=== PATIENT | female | born 1955 | race Caucasian/White ===

== ENCOUNTER → 2017-02-12 | Outpatient (CLI) | payer MEDICARE, BC ==
--- NOTE | 2017-02-12 10:16 | USB ---
Reason for exam: follow-up at short interval from prior study. History: Patient is postmenopausal, has history of high-risk lesion on a previous biopsy at age 59, has history of endometrial cancer at age 43, has history of ovarian cancer at age 43, has history of colon cancer at age 43, and has history of breast cancer at age 42. Family history of breast cancer in mother and premenopausal breast cancer in daughter at age 16. Benign US biopsy breast VAD LT of the left breast, August 07, 2016. Benign MG pre op loc each addl LT of the left breast, July 28, 2015. Benign MG pre op needle loc LT of the left breast, July 28, 2015. High risk US biopsy breast VAD LT of the left breast, May 22, 2015. High risk US biopsy breast add'l VAD LT of the left breast, May 22, 2015. High risk MG pre op needle loc LT of the left breast, April 22, 2014. High risk US biopsy breast VAD LT of the left breast, February 02, 2014. Benign US left CoreBiopsy of the left breast, March 27, 2006. Benign left mammotome panel of the left breast, March 07, 2006. Benign excisional biopsy of the left breast, October 15, 1999. Malignant excisional biopsy of the right breast, December 13, 1997. Benign excisional biopsy of the left breast, November 17, 1997. Malignant excisional biopsy of the right breast, November 17, 1997. Mastectomy of the right breast, 1994. Mastectomy of the right breast. Radiation therapy of the right breast. Took tamoxifen for 5 years beginning at age 43. Physical Findings: Nurse Summary: left nipple pain x a few months (nurse cw). US Breast LT Left breast ultrasound includes all four quadrants, the retroareolar region and axilla. Finding demonstrates a 4 x 2 x 5mm lobular, mixed lesion at 2 o'clock, a 6 x 3 x 6mm oval, cystic lesion at 2 o'clock, a 5 x 3 x 6mm oval, mixed lesion at 2 o'clock and a 6 x 2 x 7mm lobular, mixed lesion at 10 o'clock. These results were verbally communicated with the patient and result sheet given to the patient on 02/12/17. ASSESSMENT: Probably benign, BI-RAD 3 RECOMMENDATION: Follow-up diagnostic mammogram and ultrasound of the left breast in 6 months.
== END | disposition home or self-care (01) ==
LOC: RADUSWWP 08:09
PROVIDERS: ATTEND Surgery
DX: Z85.3 Personal history of malignant neoplasm of breast (principal)

== ENCOUNTER → 2017-09-01 | Outpatient (CLI) | payer MEDICARE, BC ==
--- NOTE | 2017-09-01 10:30 | MM ---
Reason for exam: additional evaluation requested from abnormal screening. Last mammogram was performed 1 year and 1 month ago. History: Patient is postmenopausal, has history of high-risk lesion on a previous biopsy at age 59, has history of endometrial cancer at age 43, has history of ovarian cancer at age 43, has history of colon cancer at age 43, and has history of breast cancer at age 42. Family history of breast cancer in mother and premenopausal breast cancer in daughter at age 16. Benign US biopsy breast VAD LT of the left breast, August 07, 2016. Benign MG pre op loc each addl LT of the left breast, July 28, 2015. Benign MG pre op needle loc LT of the left breast, July 28, 2015. High risk US biopsy breast VAD LT of the left breast, May 22, 2015. High risk US biopsy breast add'l VAD LT of the left breast, May 22, 2015. High risk MG pre op needle loc LT of the left breast, April 22, 2014. High risk US biopsy breast VAD LT of the left breast, February 02, 2014. Benign US left CoreBiopsy of the left breast, March 27, 2006. Benign left mammotome panel of the left breast, March 07, 2006. Benign excisional biopsy of the left breast, October 15, 1999. Malignant excisional biopsy of the right breast, December 13, 1997. Benign excisional biopsy of the left breast, November 17, 1997. Malignant excisional biopsy of the right breast, November 17, 1997. Mastectomy of the right breast, 1994. Mastectomy of the right breast. Radiation therapy of the right breast. Took tamoxifen for 5 years beginning at age 43. MG 3D Diag Mammo W/Cad LT CC, MLO, and XCCL view(s) were taken of the left breast. Prior study comparison: August 07, 2016, left breast MG diagnostic mammo LT wo CAD. July 26, 2016, left breast MG 3d diag mammo w/cad LT. The breast tissue is heterogeneously dense. This may lower the sensitivity of mammography. Stable distortion. No significant new findings when compared with previous films. These results were verbally communicated with the patient and result sheet given to the patient on 09/01/17. ASSESSMENT: Benign, BI-RAD 2 RECOMMENDATION: Ultrasound of the left breast in 6 months.
== END | disposition home or self-care (01) ==
LOC: RADMAMWWP 07:42
PROVIDERS: ATTEND Radiology Diagnostic Radiology
DX: R92.8 Other abnormal and inconclusive findings on diagnostic imaging of breast (principal)
CPT/HCPCS: 77065; G0279

== ENCOUNTER → 2017-09-01 | Outpatient (CLI) | payer MEDICARE, BC ==
--- NOTE | 2017-09-01 10:00 | USB ---
Reason for exam: follow-up at short interval from prior study. History: Patient is postmenopausal, has history of high-risk lesion on a previous biopsy at age 59, has history of endometrial cancer at age 43, has history of ovarian cancer at age 43, has history of colon cancer at age 43, and has history of breast cancer at age 42. Family history of breast cancer in mother and premenopausal breast cancer in daughter at age 16. Benign US biopsy breast VAD LT of the left breast, August 07, 2016. Benign MG pre op loc each addl LT of the left breast, July 28, 2015. Benign MG pre op needle loc LT of the left breast, July 28, 2015. High risk US biopsy breast VAD LT of the left breast, May 22, 2015. High risk US biopsy breast add'l VAD LT of the left breast, May 22, 2015. High risk MG pre op needle loc LT of the left breast, April 22, 2014. High risk US biopsy breast VAD LT of the left breast, February 02, 2014. Benign US left CoreBiopsy of the left breast, March 27, 2006. Benign left mammotome panel of the left breast, March 07, 2006. Benign excisional biopsy of the left breast, October 15, 1999. Malignant excisional biopsy of the right breast, December 13, 1997. Benign excisional biopsy of the left breast, November 17, 1997. Malignant excisional biopsy of the right breast, November 17, 1997. Mastectomy of the right breast, 1994. Mastectomy of the right breast. Radiation therapy of the right breast. Took tamoxifen for 5 years beginning at age 43. Physical Findings: Nurse Summary: 0.5cm palpable node 9-10 o'clock left breast (nurse ms). US Breast LT Left breast ultrasound includes all four quadrants, the retroareolar region and axilla. Finding demonstrates a 5 x 2 x 3mm lobular, mixed lesion at 2 o'clock, a 6 x 3 x 6mm oval, mixed lesion at 2 o'clock, a 4 x 2 x 3mm oval, cystic lesion a 5 o'clock and a 6 x 3 x 3mm lobular, mixed lesion at 10 o'clock. These results were verbally communicated with the patient and result sheet given to the patient on 09/01/17. ASSESSMENT: Incomplete: need additional imaging evaluation, BI-RAD 0 RECOMMENDATION: Follow-up diagnostic mammogram of the left breast.
== END | disposition home or self-care (01) ==
LOC: RADUSWWP 06:48
PROVIDERS: ATTEND Surgery
DX: N60.02 Solitary cyst of left breast (principal)

== ENCOUNTER → 2018-05-25 | Outpatient (CLI) | payer MEDICARE, BC ==
[2018-05-25 12:41] LABS: C Reactive Protein 9.3 mg/L (<10.0); Calcium 9.2 mg/dL (8.4-10.2); Potassium 4.1 mmol/L (3.5-5.1)
[2018-05-25 12:55] LABS: HCT 39.1 % (34.0-46.0); HGB 12.9 gm/dL (11.4-16.0); MCH 29.5 pg (25.0-35.0); MCV 89.3 fL (80.0-100.0); Mean Platelet Volume 6.8; Platelet Count 442 k/uL (150-450); RBC 4.38 m/uL (3.80-5.40); WBC 9.3 k/uL (3.8-10.6)
[2018-05-25 14:53] LABS: Erythrocyte Sedimentation Rate 23 mm/hr (0-20)
[2018-05-25 20:17] LABS: Gliadin AB IgA, Unit <0.2 U/mL
[2018-05-25 21:16] LABS: Hemoglobin A1C 6.3 % (4.0-6.0)
== END | disposition home or self-care (01) ==
LOC: LABWHC1 11:56
PROVIDERS: ATTEND Internal Medicine Gastroenterology
DX: E11.9 Type 2 diabetes mellitus without complications (principal); I11.9 Hypertensive heart disease without heart failure; K52.9 Noninfective gastroenteritis and colitis, unspecified
CPT/HCPCS: 36415; 80048; 83036; 83516; 83630; 85027; 85652; 86140; 87045; 87046; 87328; 87329

== ENCOUNTER → 2018-08-14 | Outpatient (CLI) | payer MEDICARE, BC ==
--- NOTE | 2018-08-14 12:41 | XR ---
EXAM TYPE: LUMBAR SPINE X RAY SERIES COMPARISON: NONE HISTORY: Low back pain TECHNIQUE: 4 views are submitted. FINDINGS: Alignment is anatomic. The pedicles are intact. The transverse processes are intact. There is no s pondylolysis or spondylolisthesis. Vascular calcifications are noted there is facet arthropathy at L 5-S1. Slight curvature of the spine with multilevel hypertrophic and mild degenerative disc disease. Suggestion of previous surgery involving the pelvis which may be related to hernia repair surgery. Th ere is sclerosis greater on the left involving the SI joint. No erosive changes. IMPRESSION: 1. Multilevel degenerative disc disease with severe facet arthropathy L5-S1. Neural foraminal encroac hment is suspected. Recommend MRI. There are 2 correlate for mild sacroiliitis.
== END ==
LOC: RADXRMAIN 11:54
PROVIDERS: ATTEND Internal Medicine
DX: M51.37 Other intervertebral disc degeneration, lumbosacral region (principal); M46.97 Unspecified inflammatory spondylopathy, lumbosacral region; M46.1 Sacroiliitis, not elsewhere classified
CPT/HCPCS: 72110

== ENCOUNTER → 2018-09-02 | Outpatient (CLI) | payer MEDICARE, BC ==
--- NOTE | 2018-09-02 12:23 | MR ---
EXAMINATION TYPE: MR lumbar spine wo con DATE OF EXAM: 09/02/2018 COMPARISON: 08/14/2018 lumbar spine radiographs HISTORY: Back pain TECHNIQUE: Multiplanar, multisequence images of the lumbar spine were acquired. FINDINGS: The lumbar spine vertebral bodies maintain normal vertebral body heights and alignment. Mul tilevel disc desiccation is seen. Conus medullaris is unremarkable. L1-L2: There is a broad-based disc bulge, facet arthropathy and ligamentum flavum buckling with minim al bilateral neural foraminal narrowing and no spinal canal stenosis. L2-L3: There is a broad-based disc bulge, facet arthropathy and ligamentum flavum buckling with mild bilateral neural foraminal narrowing and no spinal canal stenosis. L3-L4: There is a broad-based disc bulge, facet arthropathy and ligamentum flavum buckling with mild bilateral neural foraminal narrowing and no spinal canal stenosis. L4-L5: There is a broad-based disc bulge, facet arthropathy and ligamentum flavum buckling resulting in mild bilateral neural foraminal narrowing and mild spinal canal stenosis. L5-S1: There is a broad-based disc bulge, facet arthropathy and ligamentum flavum buckling resulting in minimal bilateral neural foraminal narrowing. No significant spinal canal stenosis. IMPRESSION: Multilevel degenerative disc disease of the lumbar spine without focal herniation however there is mi ld spinal canal stenosis at L4-L5 as a result of the multilevel degenerative disc disease and there a re is multilevel neural foraminal narrowing.
== END | disposition home or self-care (01) ==
LOC: RADMRIMAIN 10:30
PROVIDERS: ATTEND Internal Medicine
DX: M48.061 Spinal stenosis, lumbar region without neurogenic claudication (principal); M99.73 Connective tissue and disc stenosis of intervertebral foramina of lumbar region; M51.16 Intervertebral disc disorders with radiculopathy, lumbar region
CPT/HCPCS: 72148

== ENCOUNTER 2018-12-18 10:20 | Day surgery (SDC) | payer MEDICARE, BC ==
[2018-12-16 12:11] VITALS: BMI 37.0
--- NOTE | 2018-12-17 20:37 | P.GSHP ---
History of Present Illness H&P Date: 12/18/18 CHIEF COMPLAINT: GERD and colon screen HISTORY OF PRESENT ILLNESS: The patient is a 63-year-old female who presents with gastroesophageal reflux disease and need for colon screen. Upper and lower endoscopy were offered for further evaluation and management. PAST MEDICAL HISTORY: Please see list. PAST SURGICAL HISTORY: Please see list. MEDICATIONS: Please see list. ALLERGIES: Please see list. SOCIAL HISTORY: No illicit drug use FAMILY HISTORY: No reports of Crohn disease or ulcerative colitis. REVIEW OF ORGAN SYSTEMS: CONSTITUTIONAL: No reports of fevers or chills. GI: Denies any blood in stools or constipation. PHYSICAL EXAM: VITAL SIGNS: Stable GENERAL: Well-developed pleasant in no acute distress. HEENT: No scleral icterus. Extraocular movements grossly intact. Moist buccal mucosa. NECK: Supple without lymphadenopathy. CHEST: Unlabored respirations. Equal bilateral excursions. CARDIOVASCULAR: Regular rate and rhythm. Distal 2+ pulses. ABDOMEN: Soft, nondistended. MUSCULOSKELETAL: No clubbing, cyanosis, or edema. ASSESSMENT: 1. Gastroesophageal reflux disease 2. Colon screen. PLAN: 1. Recommend proceeding with an upper and lower endoscopy Past Medical History Past Medical History: Cancer, CVA/TIA, Diabetes Mellitus, Hyperlipidemia, Hypertension, Osteoarthritis (OA), Pneumonia, Seizure Disorder Additional Past Medical History / Comment(s): chronic diarrhea, breast/colon/ova jeffrey,uterine CA, no bp in rt arm. told she had a stroke 03/2014 "blood clot in back of head". hx of head injury 3rd grade, pt states she has "slow thinking process"and seizures started after injury. -last seizure >5 years ago, hx back pain. brain aneurysm 2007,meniers disease History of Any Multi-Drug Resistant Organisms: None Reported Past Surgical History: Adenoidectomy, Appendectomy, Bladder Surgery, Bowel Resection, Breast Surgery, Section, Cholecystectomy, Hernia Repair, Hysterectomy, Orthopedic Surgery, Tonsillectomy Additional Past Surgical History / Comment(s): rt mastectomy, manpreet BREAST BX, MANPREET CATARACT SX, BLADDER SUSPENSION, bowel resection x2 d/t ca. Past Anesthesia/Blood Transfusion Reactions: Postoperative Nausea & Vomiting (PONV) Smoking Status: Never smoker - Past Family History Mother Family Medical History: Cancer Father Family Medical History: Cancer Medications and Allergies Home Medications Medication Instructions Recorded Confirmed Type Enalapril [Vasotec] 20 mg PO QAM 12/16/13 12/16/18 History carBAMazepine [Carbatrol] 600 mg PO BID 12/16/13 12/16/18 History glipiZIDE [Glucotrol] 5 mg PO BID 12/16/13 12/16/18 History hydrALAZINE HCL [Apresoline] 50 mg PO TID 12/16/13 12/16/18 History levETIRAcetam [Keppra] 1,000 mg PO BID 12/16/13 12/16/18 History Aspirin 325 mg PO HS 04/21/14 12/16/18 History Atorvastatin [Lipitor] 20 mg PO HS 04/21/14 12/16/18 History Hydrocodone/Acetaminophen 1 tab PO Q6HR PRN 04/21/14 12/16/18 History [Hydrocodone/Acetaminophen 10-325] Topiramate 50 mg PO BID 04/21/14 12/16/18 History Diclofenac Sodium [Voltaren] 75 mg PO BID 07/08/17 12/16/18 History Diphenox-Atrop 2.5-0.025 mg 1 tab PO QID PRN 07/08/17 12/16/18 History [Lomotil] Enalapril [Vasotec] 10 mg PO HS 07/08/17 12/16/18 History metFORMIN HCL [Glucophage] 500 mg PO BID 07/08/17 12/16/18 History Hydrochlorothiazide [Hydrodiuril] 25 mg PO DAILY #30 tab 07/09/17 12/16/18 Rx Atenolol 25 mg PO BID 12/16/18 12/16/18 History Sertraline [Zoloft] 100 mg PO DAILY 12/16/18 12/16/18 History Allergies Allergy/AdvReac Type Severity Reaction Status Date / Time No Known Allergies Allergy Verified 12/16/18 12:02
[~2018-12-18 10:20] MED LIST: LACTATED RINGERS 1,000 ML IV SCH; LIDOCAINE 1% 20 ML VIAL (10MG/ML) FOR IV START INTRADERMA PRN
[2018-12-18 11:46] VITALS: TEMP 98.2
[2018-12-18 11:50] LABS: Glucose,Whole Blood 137 mg/dL (75-99)
[2018-12-18] MEDS ORDERED: PROPOFOL 10 MG/ML 20 ML VIAL IV ONE (12:12)
[2018-12-18] MEDS ORDERED: LIDOCAINE 1% INJ 10MG/ML (20 ML MDV) ONE (12:12)
[2018-12-18] MEDS ORDERED: GLYCOPYRROLATE 0.2 MG/ML 2 ML VIAL ONE (12:12)
[2018-12-18] MEDS ORDERED: KETAMINE 10 MG/ML 20 ML VIAL ONE (12:12)
--- NOTE | 2018-12-18 12:32 | P.PCN ---
Date of Procedure: 12/18/18 Description of Procedure: PREOPERATIVE DIAGNOSIS: Gastroesophageal reflux disease. Morbid obesity. POSTOPERATIVE DIAGNOSIS: Morbid obesity. Gastritis. Gastroesophageal reflux disease. Diaphragmatic hiatal hernia OPERATION: Esophagogastroduodenoscopy with biopsies along antrum. SURGEON: Opal Torres MD ANESTHESIA: MAC. INDICATIONS: The patient is a 63-year-old female who presents with a history of reflux disease. Benefits and risks of the procedure were described. Informed consent was obtained. DESCRIPTION: The patient was brought into the endoscopy suite and laid in the left lateral decubitus position. An Olympus gastroscope was passed along the posterior oropharynx down to the distal esophagus where the squamocolumnar junction was encountered at 40 cm from the incisors. The stomach was entered and no bile reflux was found. Additional findings are listed below. Biopsies with cold f orceps were obtained of the antrum. The first through third portion of the duodenum was examined and unremarkable. Retroflexion of the scope confirmed Hill grade 4 lower esophageal valve. The squamocolumnar junction demonstrated LA grade B erosive esophagitis with bleeding. The stomach was desufflated. The patient tolerated the procedure well. FINDINGS: Squamocolumnar junction 40 cm from the incisors. Diaphragmatic hiatus at 40 cm. Hill grade 4 lower esophageal valve. LA grade B erosive esophagitis with acute bleeding No active duodenitis. Chronic gastritis with recent bleed RECOMMENDATIONS: Upper endoscopy as needed.
--- NOTE | 2018-12-18 12:43 | P.PCN ---
Date of Procedure: 12/18/18 Description of Procedure: PREOPERATIVE DIAGNOSIS: Colonoscopy screening. Personal history of colon cancer Family history of colon cancer Status post sigmoid colon resection POSTOPERATIVE DIAGNOSIS: Colonoscopy screening. Personal history of colon cancer Family history of colon cancer Status post sigmoid colon resection OPERATION: Colonoscopy to the ileocecal valve and appendiceal orifice. SURGEON: Opal Torres MD. ANESTHESIA: MAC. INDICATIONS: The patient is a 63-year-old female who presents for colonoscopy screening. Benefits and risks were described and informed consent was obtained. DESCRIPTION OF PROCEDURE: The patient had undergone Suprep. She had been brought into the operating room and laid in the left lateral decubitus position. After adequate intravenous sedation, the rectum was examined with 2% lidocaine jelly. External hemorrhoids were encountered. The rectal tone was within normal limits. No lesions were palpated in the rectal vault. An Olympus colonoscope was advanced until the ileocecal valve and appendiceal orifice were clearly viewed. Colon anastomosis was unremarkable of the sigmoid colon. The prep was good. The scope was removed with visualization of each mucosal fold. No scattered diverticulosis was encountered. No colonic polyps were found. No evidence of focal colitis was found. Retroflexion of the scope demonstrated grade 1 internal hemorrhoids without active bleeding or inflammation. The colon was desufflated. The patient had tolerated the procedure well. Withdrawal time was over 6 minutes. FINDINGS: Aronchick preparation quality scale 1 (1-5) Internal hemorrhoids, grade 1 External prolapsed hemorrhoids, stage III No arteriovenous malformations. No adenomatous polyps. Colon anastomosis was unremarkable of the sigmoid colon. No focal colitis. RECOMMENDATIONS: Lower endoscopy in 5 years, 2023 Plan - Discharge Summary Discharge Rx Participant: No New Discharge Prescriptions: No Action levETIRAcetam [Keppra] 1,000 mg PO BID hydrALAZINE HCL [Apresoline] 50 mg PO TID glipiZIDE [Glucotrol] 5 mg PO BID carBAMazepine [Carbatrol] 600 mg PO BID Enalapril [Vasotec] 20 mg PO QAM Atorvastatin [Lipitor] 20 mg PO HS Aspirin 325 mg PO HS Topiramate 50 mg PO BID Hydrocodone/Acetaminophen [Hydrocodone/Acetaminophen 10-325] 1 tab PO Q6HR PRN PRN Reason: Pain metFORMIN HCL [Glucophage] 500 mg PO BID Diclofenac Sodium [Voltaren] 75 mg PO BID Enalapril [Vasotec] 10 mg PO HS Diphenox-Atrop 2.5-0.025 mg [Lomotil] 1 tab PO QID PRN PRN Reason: Loose Stool Hydrochlorothiazide [Hydrodiuril] 25 mg PO DAILY #30 tab Sertraline [Zoloft] 100 mg PO DAILY Atenolol 25 mg PO BID Discharge Medication List Enalapril [Vasotec] 20 mg PO QAM 12/16/13 [History] carBAMazepine [Carbatrol] 600 mg PO BID 12/16/13 [History] glipiZIDE [Glucotrol] 5 mg PO BID 12/16/13 [History] hydrALAZINE HCL [Apresoline] 50 mg PO TID 12/16/13 [History] levETIRAcetam [Keppra] 1,000 mg PO BID 12/16/13 [History] Aspirin 325 mg PO HS 04/21/14 [History] Atorvastatin [Lipitor] 20 mg PO HS 04/21/14 [History] Hydrocodone/Acetaminophen [Hydrocodone/Acetaminophen 10-325] 1 tab PO Q6HR PRN 04/21/14 [History] Topiramate 50 mg PO BID 04/21/14 [History] Diclofenac Sodium [Voltaren] 75 mg PO BID 07/08/17 [History] Diphenox-Atrop 2.5-0.025 mg [Lomotil] 1 tab PO QID PRN 07/08/17 [History] Enalapril [Vasotec] 10 mg PO HS 07/08/17 [History] metFORMIN HCL [Glucophage] 500 mg PO BID 07/08/17 [History] Hydrochlorothiazide [Hydrodiuril] 25 mg PO DAILY #30 tab 07/09/17 [Rx] Atenolol 25 mg PO BID 12/16/18 [History] Sertraline [Zoloft] 100 mg PO DAILY 12/16/18 [History] Follow up Appointment(s)/Referral(s): Opal Torres MD [STAFF PHYSICIAN] - 01/06/19 Patient Instructions/Handouts: Gastritis (DC), Gastroesophageal Reflux Disease (DC) Activity/Diet/Wound Care/Special Instructions: Repeat colonoscopy in 5 years, 2023 Discharge Disposition: HOME SELF-CARE
[2018-12-18 13:19] VITALS: BP 133/75; PULSE 59; RESP 16
== END 2018-12-18 13:51 | disposition home or self-care (01) ==
LOC: ORWHC2ENDO 10:20
PROVIDERS: ATTEND Surgery Plastic and Reconstructive Surgery
DX: Z12.11 Encounter for screening for malignant neoplasm of colon (principal); K29.51 Unspecified chronic gastritis with bleeding; K22.11 Ulcer of esophagus with bleeding; K44.9 Diaphragmatic hernia without obstruction or gangrene; K64.0 First degree hemorrhoids; K64.4 Residual hemorrhoidal skin tags; E66.01 Morbid (severe) obesity due to excess calories; K21.9 Gastro-esophageal reflux disease without esophagitis; R56.9 Unspecified convulsions; E11.9 Type 2 diabetes mellitus without complications; M19.90 Unspecified osteoarthritis, unspecified site; E78.5 Hyperlipidemia, unspecified; I10 Essential (primary) hypertension; Z79.82 Long term (current) use of aspirin; Z80.0 Family history of malignant neoplasm of digestive organs; Z85.038 Personal history of other malignant neoplasm of large intestine; Z79.84 Long term (current) use of oral hypoglycemic drugs; Z79.899 Other long term (current) drug therapy; Z86.010 Personal history of colon polyps; Z90.49 Acquired absence of other specified parts of digestive tract; Z98.0 Intestinal bypass and anastomosis status; Z86.73 Personal history of transient ischemic attack (TIA), and cerebral infarction without residual deficits; Z79.891 Long term (current) use of opiate analgesic; Z68.37 Body mass index [BMI] 37.0-37.9, adult
CPT/HCPCS: 88305; 43239; J2001; J2704; G0105; 45378

== ENCOUNTER → 2018-12-24 | Outpatient (CLI) | payer MEDICARE, BC ==
--- NOTE | 2018-12-24 09:12 | MM ---
Reason for exam: additional evaluation requested from prior study. Last mammogram was performed 1 year and 4 months ago. History: Patient is postmenopausal, has history of high-risk lesion on a previous biopsy at age 59, has history of endometrial cancer at age 43, has history of ovarian cancer at age 43, has history of colon cancer at age 43, and has history of breast cancer at age 42. Family history of breast cancer in mother at age 40, premenopausal breast cancer in daughter at age 16, and breast cancer in daughter at age 30. Benign US biopsy breast VAD LT of the left breast, August 07, 2016. Benign MG pre op loc each addl LT of the left breast, July 28, 2015. Benign MG pre op needle loc LT of the left breast, July 28, 2015. High risk US biopsy breast VAD LT of the left breast, May 22, 2015. High risk US biopsy breast add'l VAD LT of the left breast, May 22, 2015. High risk MG pre op needle loc LT of the left breast, April 22, 2014. High risk US biopsy breast VAD LT of the left breast, February 02, 2014. Benign US left CoreBiopsy of the left breast, March 27, 2006. Benign left mammotome panel of the left breast, March 07, 2006. Benign excisional biopsy of the left breast, October 15, 1999. Malignant excisional biopsy of the right breast, December 13, 1997. Benign excisional biopsy of the left breast, November 17, 1997. Malignant excisional biopsy of the right breast, November 17, 1997. Mastectomy of the right breast, 1994. Mastectomy of the right breast. Radiation therapy of the right breast. Took hormonal contraceptives for 6 years beginning at age 19. Took tamoxifen for 5 years beginning at age 43. Physical Findings: Nurse did not find any significant physical abnormalities on exam. MG 3D Diag Mammo W/Cad LT CC, MLO, XCCL, and ML view(s) were taken of the left breast. Prior study comparison: September 01, 2017, left breast MG 3d diag mammo w/cad LT. August 07, 2016, left breast MG diagnostic mammo LT wo CAD. The breast tissue is heterogeneously dense. This may lower the sensitivity of mammography. Finding: Stable architectural distortion in the left breast. There is a chronic nodularity in the left breast. There is a 5mm circumscribed nodule left upper quadrant. These results were verbally communicated with the patient and result sheet given to the patient on 12/24/18. ASSESSMENT: Incomplete: need additional imaging evaluation, BI-RAD 0 RECOMMENDATION: Ultrasound of the left breast.
--- NOTE | 2018-12-24 09:17 | USB ---
Reason for exam: additional evaluation requested from prior study. History: Patient is postmenopausal, has history of high-risk lesion on a previous biopsy at age 59, has history of endometrial cancer at age 43, has history of ovarian cancer at age 43, has history of colon cancer at age 43, and has history of breast cancer at age 42. Family history of breast cancer in mother at age 40, premenopausal breast cancer in daughter at age 16, and breast cancer in daughter at age 30. Benign US biopsy breast VAD LT of the left breast, August 07, 2016. Benign MG pre op loc each addl LT of the left breast, July 28, 2015. Benign MG pre op needle loc LT of the left breast, July 28, 2015. High risk US biopsy breast VAD LT of the left breast, May 22, 2015. High risk US biopsy breast add'l VAD LT of the left breast, May 22, 2015. High risk MG pre op needle loc LT of the left breast, April 22, 2014. High risk US biopsy breast VAD LT of the left breast, February 02, 2014. Benign US left CoreBiopsy of the left breast, March 27, 2006. Benign left mammotome panel of the left breast, March 07, 2006. Benign excisional biopsy of the left breast, October 15, 1999. Malignant excisional biopsy of the right breast, December 13, 1997. Benign excisional biopsy of the left breast, November 17, 1997. Malignant excisional biopsy of the right breast, November 17, 1997. Mastectomy of the right breast, 1994. Mastectomy of the right breast. Radiation therapy of the right breast. Took hormonal contraceptives for 6 years beginning at age 19. Took tamoxifen for 5 years beginning at age 43. US Breast LT Left complete breast ultrasound includes all four quadrants, the retroareolar region and axilla. Finding demonstrates a 0.3 x 0.2 x 0.6cm lesion too small to characterize at 2 o'clock, a 0.5 x 0.2cm lesion too small to characterize at 2 o'clock, a 0.7 x 0.4 x 0.8cm mixed lesion at 2 o'clock, a 0.4 x 0.2cm leison too small to characterize at 2 o'clock, 0.7 x 0.4 x 0.3cm ductal ectasia at 4 o'clock, a 0.5 x 0.4 x 0.3cm lesion at 5 o'clock and a 0.9 x 0.4 x 0.6cm mixed lesion at 10 o'clock. These results were verbally communicated with the patient and result sheet given to the patient on 12/24/18. ASSESSMENT: Suspicious, BI-RAD 4 RECOMMENDATION: Surgical consultation and ultrasound core biopsy of the left breast. (biopsy at 2 o'clock, 4 o'clock and 10 o'clock, clip to correlate to mammogram) Called with mammographic findings and has scheduled an appointment for the patient for 01/06/[address] Torres. Biopsy scheduled for 01/06/19 at 2 o'clock. PRELIMINARY REPORT CALLED AND FAXED TO DR. TORRES ON 12/24/18.
== END | disposition home or self-care (01) ==
LOC: RADMAMWWP 06:54
PROVIDERS: ATTEND Surgery Plastic and Reconstructive Surgery
DX: N60.09 Solitary cyst of unspecified breast (principal); R92.8 Other abnormal and inconclusive findings on diagnostic imaging of breast; Z85.3 Personal history of malignant neoplasm of breast
CPT/HCPCS: 77065; 76641; G0279; 77061

== ENCOUNTER → 2019-01-06 | Day surgery (SDC) | payer MEDICARE, BC ==
[2019-01-06 13:41] VITALS: RESP 18; TEMP 97.9; BMI 34.4
--- NOTE | 2019-01-06 15:35 | USB ---
EXAMINATION TYPE: US biopsy breast VAD LT, US biopsy breast add'l VAD LT DATE OF EXAM: 01/06/2019 CLINICAL HISTORY: Z85.3 Personal HX Of Breast CA. TECHNIQUE: Ultrasound guided core biopsy of left breast. COMPARISON: Prior breast ultrasound 12/24/2018, mammogram 12/24/2018 FINDINGS: The procedure of ultrasound guided core biopsy was explained to the patient. Benefits, alternatives, and risks were discussed. An informed consent was then obtained. The patient was placed in supine positioning for imaging and for the procedure. The overlying skin was prepped and draped in usual sterile fashion. Lidocaine was used as anesthetic into the skin and subcutaneous tissue up to area of concern in the left breast at the 2:00 position. Under ultrasound guidance, a 12-gauge vacuum assisted biopsy gun device was used to obtain 2 core samples. Following this, a biopsy clip was left in lesion. Using similar technique biopsy was performed at the 10:00 position of the left breast. 5 core specimens were obtained. Biopsy clip was left in the lesion. Postprocedure mammogram is pending. The 4:00 lesion could not be repaired. Only ductal changes are identified. No biopsy performed at this site. The patient tolerated the procedure well without any immediate complication. The patient was kept in the radiology department for short stay after the procedure and then discharged home in stable condition. IMPRESSION: Successful, uncomplicated ultrasound guided core biopsy of 2 areas of concern in the left breast, full pathology results to follow. Pathology Results: Malignant A. 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 Appropriately controlled immunohistochemical studies for CK 5/6 and CK 7 are immunoreactive in a pattern confirming usual duct hyperplasia. B. LEFT BREAST AT 10:00 POSITION, BIOPSIES: Low grade DCIS with surrounding adenosis. Appropriately controlled immunohistochemical studies for cytokeratin 5/6 are negative in areas of DCIS, cytokeratin 7 is negative for invasion. Recommendation Surgical consult of the left breast. MTDD
[2019-01-06 16:07] VITALS: BP 132/74; PULSE 51
--- NOTE | 2019-01-07 08:19 | MM ---
Reason for exam: additional evaluation requested from abnormal screening. Last mammogram was performed less than 1 month ago. History: Patient is postmenopausal, has history of high-risk lesion on a previous biopsy at age 59, has history of endometrial cancer at age 43, has history of ovarian cancer at age 43, has history of colon cancer at age 43, and has history of breast cancer at age 42. Family history of breast cancer in mother at age 40, premenopausal breast cancer in daughter at age 16, and breast cancer in daughter at age 30. Benign US biopsy breast VAD LT of the left breast, August 07, 2016. Benign MG pre op loc each addl LT of the left breast, July 28, 2015. Benign MG pre op needle loc LT of the left breast, July 28, 2015. High risk US biopsy breast VAD LT of the left breast, May 22, 2015. High risk US biopsy breast add'l VAD LT of the left breast, May 22, 2015. High risk MG pre op needle loc LT of the left breast, April 22, 2014. High risk US biopsy breast VAD LT of the left breast, February 02, 2014. Benign US left CoreBiopsy of the left breast, March 27, 2006. Benign left mammotome panel of the left breast, March 07, 2006. Benign excisional biopsy of the left breast, October 15, 1999. Malignant excisional biopsy of the right breast, December 13, 1997. Benign excisional biopsy of the left breast, November 17, 1997. Malignant excisional biopsy of the right breast, November 17, 1997. Mastectomy of the right breast, 1994. Mastectomy of the right breast. Radiation therapy of the right breast. Took hormonal contraceptives for 6 years beginning at age 19. Took tamoxifen for 5 years beginning at age 43. MG Diagnostic Mammo LT Wo CAD CC and MLO view(s) were taken of the left breast. Prior study comparison: December 24, 2018, left breast MG 3d diag mammo w/cad LT. September 01, 2017, left breast MG 3d diag mammo w/cad LT. ASSESSMENT: Post procedure mammogram for marker placement RECOMMENDATION: Ultrasound of the left breast in 6 months. PENDING PATHOLOGY RESULTS.
== END | disposition home or self-care (01) ==
LOC: RADUSWWP 12:37
PROVIDERS: ATTEND Surgery Plastic and Reconstructive Surgery
DX: D24.2 Benign neoplasm of left breast (principal); R92.8 Other abnormal and inconclusive findings on diagnostic imaging of breast; Z78.0 Asymptomatic menopausal state; Z80.3 Family history of malignant neoplasm of breast; Z85.038 Personal history of other malignant neoplasm of large intestine; Z85.3 Personal history of malignant neoplasm of breast; Z90.11 Acquired absence of right breast and nipple; Z85.43 Personal history of malignant neoplasm of ovary; Z85.42 Personal history of malignant neoplasm of other parts of uterus
CPT/HCPCS: 88305; 88342; 88341; 77065; 19083; 19084; A4648

== ENCOUNTER → 2019-02-10 | Outpatient (CLI) | payer MEDICARE, BC ==
[2019-02-10 12:31] VITALS: BP 156/79; PULSE 70; RESP 18; TEMP 97.8; BMI 36.2
--- NOTE | 2019-02-10 13:48 | P.GSHP ---
History of Present Illness H&P Date: 02/10/19 Chief Complaint: DCIS left breast Shelli is a 64-year-old white female who is status post right mastectomy and axillary node dissection about 1994. She did not receive chemotherapy. She did have 2 radiation treatments, and was treated with tamoxifen for 5 years. She had a routine left breast mammogram and ultrasound on 12-24-18, and than an ultrasound guided biopsy of two areas at 2 O-clock and 10 O-clock done on 01-06-19. The biopsy at 2 O-Clock showed an intraductal papilloma and at 10 O- Clock low grade DCIS. She has no complications or complaints related to the biopsy. She complains of pain at the nipple this had been present for several years. She has had multiple biopsies of the left breast which have been benign in the past. The patient has had ovarian, uterine, right breast, and colon cancer twice. Of importance is the patients family history: mother: breast cancer at 59; maternal grandmother: ? uterine cancer at 29; daughter breast cancer at 16 (no radiation, no chemotherapy, was on tamoxifen). The patient had genetic testing done and was told she did not have the breast cancer gene. Family History: 1. mother: breast cancer, leukemia 2. daughter: cancer at 16 breast 3. father: kidney cancer, bladder cancer, colon cancer, prostate cancer 4. maternal aunt: breast cancer 5. paternal uncles 9 with cancers including: brain, stomach, colon, bladder, prostate 6. paternal aunt: breast Hormonal History: menarche: 10 , adopted grandson; breast fed:no, first born at 19 menopause: hysterectomy at 44 BCP: 7 years hormones: none Past Surgical History: 1. right breast mastectomy 2. gallbladder 3. hysterectomy 4. appy 5. tonsil and adenoid 6. bladder suspenscion 7. hernia 8. 2 c-sections 9. brain aneurysm 10: trauma to scalp Medical History: 1. HTN 2. seizures 3. diabetes 4. arthritis 5. multiple cancers Social History: smoke: none alcohol: none drugs:none - Constitutional Constitutional: Reports sweats, Denies chills, Denies fever - EENT Eyes: denies blurred vision, denies pain Ears: right: decreased hearing (left also decreased but not as bad as right), deny: tinnitus Ears, nose, mouth and throat: Reports headache, Denies sore throat - Breasts Breasts: bilateral: as per HPI - Cardiovascular Cardiovascular: Reports high blood pressure - Respiratory Respiratory: Denies cough, Denies 7 - Gastrointestinal Comment: colon cancer, diarrhea - Genitourinary (Female) Genitourinary: Denies dysuria, Denies hematuria - Menstruation Menstruation: Reports post hysterectomy - Musculoskeletal Comment: arthritis - Integumentary Integumentary: Denies pruritus, Denies rash - Neurological Comment: seizures - Psychiatric Psychiatric: Reports depression, Denies anxiety - Endocrine Comment: diabetes Endocrine: Reports fatigue - Hematologic/Lymphatic Comment: baby aspirin - Allergic/Immunologic Allergic/Immunologic: Reports as per HPI Past Medical History Past Medical History: Cancer, CVA/TIA, Diabetes Mellitus, Hyperlipidemia, Hypertension, Osteoarthritis (OA), Pneumonia, Seizure Disorder Additional Past Medical History / Comment(s): chronic diarrhea, breast/colon/ovarian,uterine CA, no bp in rt arm. told she had a stroke 03/2014 "blood clot in back of head". hx of head injury 3rd grade, pt states she has "slow thinking process"and seizures started after injury. -last seizure >5 years ago, hx back pain. brain aneurysm 2007,meniers disease History of Any Multi-Drug Resistant Organisms: None Reported Past Surgical History: Adenoidectomy, Appendectomy, Bladder Surgery, Bowel Resection, Breast Surgery, Section, Cholecystectomy, Hernia Repair, Hysterectomy, Orthopedic Surgery, Tonsillectomy Additional Past Surgical History / Comment(s): rt mastectomy, manpreet BREAST BX, MANPREET CATARACT SX, BLADDER SUSPENSION, bowel resection x2 d/t ca. Past Anesthesia/Blood Transfusion Reactions: Postoperative Nausea & Vomiting (PONV) Past Psychological History: Depression Additional Psychological History / Comment(s): . Smoking Status: Never smoker Past Alcohol Use History: None Reported Past Drug Use History: None Reported - Past Family History Mother Family Medical History: Cancer Father Family Medical History: Cancer Medications and Allergies Home Medications Medication Instructions Recorded Confirmed Type Enalapril [Vasotec] 25 mg PO QAM 12/16/13 02/10/19 History carBAMazepine [Carbatrol] 600 mg PO BID 12/16/13 02/10/19 History glipiZIDE [Glucotrol] 5 mg PO BID 12/16/13 02/10/19 History hydrALAZINE HCL [Apresoline] 50 mg PO TID 12/16/13 02/10/19 History levETIRAcetam [Keppra] 1,000 mg PO BID 12/16/13 02/10/19 History Aspirin 325 mg PO HS 04/21/14 02/10/19 History Atorvastatin [Lipitor] 20 mg PO HS 04/21/14 02/10/19 History Hydrocodone/Acetaminophen 1 tab PO Q6HR PRN 04/21/14 02/10/19 History [Hydrocodone/Acetaminophen 10-325] Topiramate 50 mg PO BID 04/21/14 02/10/19 History Diphenox-Atrop 2.5-0.025 mg 1 tab PO QID PRN 07/08/17 02/10/19 History [Lomotil] Enalapril [Vasotec] 25 mg PO HS 07/08/17 02/10/19 History metFORMIN HCL [Glucophage] 500 mg PO BID 07/08/17 02/10/19 History Hydrochlorothiazide [Hydrodiuril] 25 mg PO DAILY #30 tab 07/09/17 02/10/19 Rx Sertraline [Zoloft] 100 mg PO DAILY 12/16/18 02/10/19 History Allergies Allergy/AdvReac Type Severity Reaction Status Date / Time No Known Allergies Allergy Verified 02/10/19 12:28 Surgical - Exam Vital Signs Temp Pulse Resp BP Pulse Ox 97.8 F 70 18 156/79 97 02/10/19 12:29 02/10/19 12:29 02/10/19 12:29 02/10/19 12:29 02/10/19 12:29 BMI 36.2 - General obese - Eyes normal ocular movement - ENT poor dentition no hearing loss, no congestion - Neck no masses, trachea midline - Respiratory normal respiratory effort, clear to auscultation - Cardiovascular Rhythm: regular Heart Sounds: normal: S1, S2 - Abdomen Abdomen: soft, non tender, no guarding, no rigid, no rebound - Integumentary normal turgor - Musculoskeletal knee pain limited mobility - Psychiatric oriented to time, oriented to person, oriented to place, speech is normal, memory intact breast exam: right chest wall: no recurrence of cancer right axilla: no adenopathy of concern left breast: multiple scars, no masses of concern left axilla: no adenopathy of concern Results mammogram and ultrasound reviewed Assessment and Plan Assessment: Impression: 1.HTN 2. seizures 3. diabetes 4. arthritis 5. multiple cancers 6. left breast DCIS 7. obesity 8. history of multiple prior cancers, uterine, ovarian, breast, colon Surgical options were discussed with the patient. These include local excision of both sites of the core biopsy with possible radiation therapy to the breast. The patient was given the option of a mastectomy +/- sentinel node biopsy; possible axillary node dissection. The patient has DCIS however, with her strong history we have considered sentinel node biopsy. The patient was also given the option of immediate reconstruction. The patient is not interested in meeting with a plastic surgeon or reconstruction at this time. She wishes to have a mastectomy with sentinel node biopsy and possible axillary node dissection. Plan: 1. Left breast mastectomy, sentinel node biopsy, possible axillary node dissection 2. Presentation at tumor board 3. Medical clearance CC: Dr. Negrete, Dr. Mcleod, DR. Torres
== END ==
LOC: WWCWWP 11:51
PROVIDERS: ATTEND Surgery
DX: Z53.9 Procedure and treatment not carried out, unspecified reason (principal)

== ENCOUNTER → 2019-02-22 | Outpatient (CLI) | payer MEDICARE, BC ==
[2019-02-22 08:02] LABS: Appearance,Urine Clear (Clear); Bilirubin,Urine Negative (Negative); Blood,Urine Negative (Negative); Color,Urine Yellow; Glucose,Urine (UA) Negative (Negative); Ketones,Urine Negative (Negative); Leukocyte Esterase,Urine Moderate (Negative); Mucus,Urine Rare /hpf; Nitrite,Urine Negative (Negative); PH, Urine 5.5 (5.0-8.0); Protein,Urine Trace (Negative); RBC,Urine 1 /hpf (0-5); Specific Gravity,Urine 1.018 (1.001-1.035); Squamous Epithelial Cell,Urine 3 /hpf (0-4); Urobilinogen,Urine <2.0 mg/dL (<2.0); WBC,Urine 12 /hpf (0-5)
[2019-02-22 08:04] LABS: Basophils # (A) 0.1 k/uL (0-0.2); Basophils % (A) 1 %; Eosinophils # (A) 0.4 k/uL (0-0.7); Eosinophils % (A) 5 %; HCT 42.1 % (34.0-46.0); HGB 13.7 gm/dL (11.4-16.0); Lymphocytes # (A) 2.5 k/uL (1.0-4.8); Lymphocytes % (A) 31 %; MCH 28.1 pg (25.0-35.0); MCHC 32.5 g/dL (31.0-37.0); MCV 86.7 fL (80.0-100.0); Mean Platelet Volume 7.3; Monocytes # (A) 0.4 k/uL (0-1.0); Monocytes % (A) 5 %; Neutrophils # (A) 4.6 k/uL (1.3-7.7); Neutrophils % (A) 57 %; Platelet Count 341 k/uL (150-450); RBC 4.85 m/uL (3.80-5.40); RDW 13.7 % (11.5-15.5); WBC 8.1 k/uL (3.8-10.6)
[2019-02-22 11:40] LABS: Erythrocyte Sedimentation Rate 13 mm/hr (0-20)
[2019-02-22 12:40] LABS: African American GFR (CKD) 104.6 (60.0-200.0); Albumin 4.5 g/dL (3.80-4.90); Albumin/Globulin Ratio 2.05 (1.60-3.17); Anion Gap 9.7 mmol/L (4.00-12.00); BUN/Creat Ratio 21.43 Ratio (12.00-20.00); C Reactive Protein 0.6 mg/dL (0.0-0.8); Calcium 9.2 mg/dL (8.7-10.3); Carbon Dioxide 27.3 mmol/L (21.6-31.8); Globulin 2.2 g/dL (1.6-3.3); LDL Cholesterol,Calculated 53.2 mg/dL (0.0-131.0); Magnesium 1.6 mg/dL (1.5-2.4); Phosphorus 2.8 mg/dL (2.4-5.1); Total Bilirubin 0.3 mg/dL (0.3-1.2); Total Protein 6.7 g/dL (6.2-8.2); Uric Acid 4.7 mg/dL (2.9-7.7); VLDL Calculation 54.8 mg/dL (5.00-40.00); Vitamin D 25 Hydroxy 10.2 ng/mL (30.0-100.0)
[2019-02-22 15:04] LABS: Hepatitis C IgG Antibody Non-Reactive (Non-Reactive)
[2019-02-22 18:38] LABS: Hemoglobin A1C 6.3 % (4.0-6.0)
== END | disposition home or self-care (01) ==
LOC: LABWHC1 07:10
PROVIDERS: ATTEND Internal Medicine
DX: I10 Essential (primary) hypertension (principal); D64.9 Anemia, unspecified; E11.9 Type 2 diabetes mellitus without complications; M10.9 Gout, unspecified; E78.5 Hyperlipidemia, unspecified; R19.7 Diarrhea, unspecified; D89.89 Other specified disorders involving the immune mechanism, not elsewhere classified
CPT/HCPCS: 36415; 80053; 80061; 81001; 82272; 82306; 82550; 83036; 83735; 84100; 84443; 84550; 85025; 85652; 86140; 86803

== ENCOUNTER 2019-03-09 10:59 | Inpatient (IN) | payer MEDICARE, BC ==
[2019-03-05 11:19] VITALS: BMI 35.1
[~2019-03-09 10:59] MED LIST changes: +DEXAMETHASONE SOD PHOSPHATE 10 MG/ML 1 ML VIAL IV ONE; +HEPARIN SODIUM,PORCINE 5,000 UNIT/ML 1 ML VIAL SQ ONE; -LACTATED RINGERS 1,000 ML IV SCH; -LIDOCAINE 1% 20 ML VIAL (10MG/ML) FOR IV START INTRADERMA PRN; +ONDANSETRON 4 MG/2 ML VIAL IVP ONE; +Pre Op ABX Message 1 EACH MISC MISCELLANE ONE
[2019-03-09] MEDS ORDERED: LACTATED RINGERS 1,000 ML IV ONE ×3 (11:43→19:21)
[2019-03-09 11:44] LABS: Glucose,Whole Blood 135 mg/dL (75-99)
[2019-03-09] MEDS ORDERED: LIDOCAINE 1% 20 ML VIAL (10MG/ML) FOR IV START INTRADERMA ONE (11:44)
[2019-03-09] MEDS ORDERED: SCOPOLAMINE 1.5MG/72HR PATCH TRANSDERM ONE (11:50)
[2019-03-09] MEDS ORDERED: fentaNYL (PF) 50 MCG/ML 2 ML AMP IV ONE (12:30)
[2019-03-09] MEDS: MIDAZOLAM 2 MG/2 ML VIAL IV PRN ×2 (12:30→13:24)
--- NOTE | 2019-03-09 12:45 | NM ---
EXAMINATION TYPE: NM sentinel node injection DATE OF EXAM: 03/09/2019 COMPARISON: Ultrasound guided left breast biopsy dated 01/06/2019 HISTORY: Left breast cancer with request for sentinel node injection on the left. TECHNIQUE AND FINDINGS: The procedure of sentinel lymph node injection was explained to the patient. The benefits, alternatives, and risks were discussed. An informed consent was then obtained. Overlying skin is cleaned with sterile alcohol. Following this, 546 uCi Tc99m Tilmanocept was inject ed in the upper outer aspect of the left nipple intradermally. The patient tolerated the procedure well without any immediate complication. The patient was kept in the radiology department for short stay after the procedure and then taken to surgery for surgical p rocedure what is presumed intraoperative gamma probe will be used for sentinel lymph node detection. IMPRESSION: Left breast radiotracer injection for sentinel node localization as above.
[2019-03-09] MEDS ORDERED: HEPARIN SODIUM,PORCINE 5,000 UNIT/ML 1 ML VIAL SQ ONE (14:02)
--- NOTE | 2019-03-09 14:05 | P.NAPBC ---
NAPBC Queries - NAPBC Queries Was patient's case review presented at [facility] tumor board? If no, comment.: Yes Was patient's pathology reviewed at [facility]? If no, comment.: Yes Was breast conservation surgery offered? If no, comment.: Yes Was sentinel node biopsy offered? If no, comment.: Yes Was diagnosis confirmed by percutaneous core biopsy? If no, comment.: Yes Is patient mastectomy patient?: Yes Was a preop referral to reconstructive surgeon offered?: Yes (patibabatunden refused) Clinical Stage: Stage O
[2019-03-09] MEDS ORDERED: LIDOCAINE 1% INJ 10MG/ML (20 ML MDV) ONE (14:41)
[2019-03-09] MEDS ORDERED: ROPIVACAINE 5 MG/ML 30 ML VIAL ONE (14:41)
[2019-03-09] MEDS ORDERED: PROPOFOL 10 MG/ML 20 ML VIAL IV ONE (14:41)
[2019-03-09] MEDS ORDERED: DEXAMETHASONE SOD PHOSPHATE 4 MG/ML 1 ML VIAL ONE (14:41)
[2019-03-09] MEDS ORDERED: SUCCINYLCHOLINE CHLORIDE 100 MG/5 ML SYR IV ONE (14:41)
[2019-03-09] MEDS ORDERED: MIDAZOLAM 2 MG/2 ML VIAL ONE (14:41)
[2019-03-09] MEDS ORDERED: KETAMINE 10 MG/ML 20 ML VIAL ONE (14:41)
[2019-03-09] MEDS ORDERED: fentaNYL (PF) 50 MCG/ML 2 ML AMP ONE (14:41)
[2019-03-09] MEDS ORDERED: fentaNYL (PF) 50 MCG/ML 2 ML AMP IVP ONE ×2 (14:42)
[2019-03-09] MEDS ORDERED: SODIUM CHLORIDE 0.9% 50 ML with ceFAZolin 2,000 MG IV ONE ×2 (15:00)
[2019-03-09] MEDS ORDERED: HYDROcodone/APAP 5-325MG 1 EACH TAB PO PRN (17:52)
[2019-03-09] MEDS ORDERED: NALOXONE 0.4 MG/ML 1 ML VIAL IV PRN (17:52)
--- NOTE | 2019-03-09 17:52 | P.OP ---
Date of Procedure: 03/09/19 Preoperative Diagnosis: Left breast ductal carcinoma in situ, right breast mastectomy 1994 for invasive ductal carcinoma Postoperative Diagnosis: Same Procedure(s) Performed: Left breast mastectomy, sentinel node biopsy, right breast scar revision Anesthesia: RIYA Surgeon: Mariia Chen Estimated Blood Loss (ml): 30 IV fluids (ml): 800 Pathology: other (Left breast, left axilla sentinel node, right chest wall scar revision status post mastectomy) Condition: stable Disposition: floor Indications for Procedure: Left breast DCIS, redundant tissue at right mastectomy site Operative Findings: Fibrocystic breast changes, axillary node negative on frozen section for cancer Description of Procedure: Following injection of radioactive substance and left periareolar area the patient was brought to the operating room. The right and left breast and left axilla were prepped and draped in a sterile fashion following induction of general anesthesia. The left breast was approached first. Incisions sites were marked using a purple marking pen. Incision was carried through the skin into the subcutaneous tissue. Superior flap was developed down to the chest wall. Inferior flap was then performed and carried down to the chest wall. Dissection was performed from medial to lateral off the pectoralis major muscle being careful to maintain hemostasis using the electrocautery device as well as the Harmonic scalpel. Several vessels were suture ligated. This was dissected to the level of the axilla. The axilla the neoprobe was introduced. The area of increased radioactivity was identified and a lymph node was identified and removed. The 10 second radioactive count of 17,000. The neoprobe was then used to evaluate the remainder of the axilla and a 10 second count was 17. The lymph node was sent to pathology for evaluation was noted to be negative for malignancy. The wound was well irrigated. After assured that hemostasis was attained 2 MAUREEN drains were placed. Surgicel in powder form was placed. Was placed. The deep tissues were closed using a 3-0 Vicryl suture. This is followed by closure of the skin with a 4-0 Monocryl. Instruments and gowns and gloves were changed. The right mastectomy site was approached. The incision length which was excised was 14 cm. The superior incision was made. This was carried through the skin and subcutaneous tissue. The superior flap was developed. The floppy fundus to 7 cm. Following this was carried down to the pectoralis major muscle. Following this the inferior incision was made. A flap was developed which extended down approximately 4 cm. The redundant subcutaneous tissue was excised off of the pectoralis major muscle. The wound was irrigated. Hemostasis was attained using electrocautery device and harmonic scalpel. Surgicel in powder form was applied. A 10 MAUREEN drain was placed. The deep tissues were closed using 3-0 Vicryl. The skin was closed using 4-0 Monocryl. The drains were all secured with nylon suture. The patient tolerated procedure in stable condition. All instrument and sponge counts were correct at the end of the case
[2019-03-09] MEDS: HYDROmorphone 0.5 MG/0.5 ML SYRINGE IVP PRN ×2 (18:31→18:36)
[2019-03-09] MEDS ORDERED: DIPHENOX-ATROP 2.5-0.025 MG 1 EACH TAB PO PRN (22:57)
[2019-03-09] MEDS: ONDANSETRON 4 MG/2 ML VIAL IVP PRN (23:32)
[2019-03-10] MEDS: ATENOLOL 25 MG TAB PO SCH ×3 (01:10→21:24)
[2019-03-10] MEDS: ATORVASTATIN 20 MG TAB PO SCH ×2 (01:10→21:24)
[2019-03-10] MEDS: carBAMazepine 300 MG CPMP.12HR PO SCH ×3 (01:11→21:27)
[2019-03-10] MEDS: levETIRAcetam 500 MG TAB PO SCH ×3 (01:12→21:26)
[2019-03-10] MEDS: metFORMIN 500 MG TAB PO SCH ×3 (01:12→21:26)
[2019-03-10] MEDS: TOPIRAMATE 25 MG TAB PO SCH ×3 (01:13→21:26)
[2019-03-10] MEDS: HYDROmorphone 1 MG/ML 1 ML SYRINGE IV PRN ×5 (01:17→19:40)
[2019-03-10] MEDS: HEPARIN SODIUM,PORCINE 5,000 UNIT/ML 1 ML VIAL SQ SCH ×3 (01:23→19:40)
[2019-03-10] MEDS: LACTATED RINGERS 1,000 ML IV SCH ×2 (03:24→06:40)
[2019-03-10] MEDS: SODIUM CHLORIDE 0.45% 1,000 ML IV SCH ×3 (05:20→20:11)
[2019-03-10 06:46] LABS: Glucose,Whole Blood 132 mg/dL (75-99)
[2019-03-10] MEDS: INSULIN ASPART (NovoLOG) 100 UNIT/ML VIAL SQ SCH ×3 (06:55→20:14)
[2019-03-10 08:00] LABS: Basophils % (A) 0 %; Eosinophils # (A) 0.1 k/uL (0-0.7); Eosinophils % (A) 0 %; HCT 34.8 % (34.0-46.0); HGB 11.6 gm/dL (11.4-16.0); Lymphocytes # (A) 2.8 k/uL (1.0-4.8); Lymphocytes % (A) 25 %; MCH 29.3 pg (25.0-35.0); MCHC 33.4 g/dL (31.0-37.0); MCV 87.6 fL (80.0-100.0); Monocytes # (A) 0.7 k/uL (0-1.0); Monocytes % (A) 7 %; Neutrophils # (A) 7.4 k/uL (1.3-7.7); Neutrophils % (A) 67 %; Platelet Count 325 k/uL (150-450); RBC 3.97 m/uL (3.80-5.40); RDW 14.5 % (11.5-15.5); WBC 11.1 k/uL (3.8-10.6)
[2019-03-10] MEDS ORDERED: HYDROcodone/APAP 10-325MG 1 EACH TAB PO PRN (09:12)
--- NOTE | 2019-03-10 09:32 | P.CONS ---
History of Present Illness - Reason for Consult Consult date: 03/10/19 (Left breast mastectomy, sentinel node biopsy, right breast scar revision.) - History of Present Illness This is a consultation dictation date of service 03/10 2019 post operative. Shelli Moncada underwent on 03/09/2019, left breast mastectomy, sentinel node biopsy, right breast scar revision, by Dr. Shirley Brown. With the underlying diagnosis left breast ductal carcinoma in situ. Patient seen and evaluated today she is doing very well no specific complaint. Vital sign: Temperature 98.1 F oral, pulse rate is 70 bpm, respiratory rate 18/m, blood pressure 129/68 with a mean 88, her pulse ox 100% on 2 L nasal cannula. On examination: Patient is conscious alert oriented 3 no neuro deficit. HEENT: Head was normocephalic atraumatic pupils equal reactive, conjunctiva was pink sclera nonicteric. Normal hearing, no nasal discharge, and oropharynx she has few teeth with the his recent history of extraction and future plan of dentures and partials. Neck was supple and no JVD no thyromegaly no lymphadenopathy trachea midline. Chest clear to auscultation and percussion with the underlying recent surgery of the left breast mastectomy and right breast scar revision and she wearing the dressing and compression dressing with the [place] is out for the drainage of the service fluid. The heart PMI in the fifth intercostal space outside midclavicular line with normal S1 and S2 no gallop. The No chest pain. Abdomen is soft positive bowel sounds no organ enlargement. Extremities no edema and positive pulses with normal perfusion. Neurologically stable no seizure and no lateralizing sign. Past medical history she had underlying seizure disorders not present on this admission however she is on medication, she also diabetic on oral hypoglycemic agent and has been controlled with oral medication so far. Patient continued to my service and her previous internal medicine Dr. Gerardo and I will be following the patient as outpatient. Patient to continue the current medication, follow-up in one week and as well to follow-up with the surgeon Dr. Shirley Brown. No change in his current medication and to be adjusted as outpatient only Continue the incentive spirometry. Assessment: #1 status post left breast mastectomy with the underlying diagnosis left breast ductal carcinoma in situ. #2 history of seizure disorder. #3 past history of the right breast cancer has been resected in 1994. #4 hypertension with hypertensive heart disease controlled. #5 diabetes mellitus type 2 on oral hypoglycemic agent to continue. #6 hyperlipidemia. Recommendation and plan: Patient stable general condition cleared medically if Dr. Shirley Olivas would discharge the patient it is up to surgical service but medically stable. When patient discharge will continue her current medication and follow-up as outpatient in 1 week thank you Past Medical History Past Medical History: Cancer, CVA/TIA, Diabetes Mellitus, Hyperlipidemia, Hypertension, Osteoarthritis (OA), Pneumonia, Seizure Disorder Additional Past Medical History / Comment(s): chronic diarrhea, breast/colon/ovarian,uterine CA, no bp in rt arm. told she had a stroke 03/2014 " blood clot in back of head". hx of head injury 3rd grade, pt states she has "slow thinking process"and seizures started after injury. -last seizure >5 years ago, hx back pain. brain aneurysm 2007,menieres disease, just put on amlodipine about a week ago for BP History of Any Multi-Drug Resistant Organisms: None Reported Past Surgical History: Adenoidectomy, Appendectomy, Bladder Surgery, Bowel Resection, Breast Surgery, Section, Cholecystectomy, Hernia Repair, Hysterectomy, Orthopedic Surgery, Tonsillectomy Additional Past Surgical History / Comment(s): rt mastectomy 15 yrs. ago, manpreet BREAST BX, MANPREET CATARACT SX, BLADDER SUSPENSION, bowel resection x2 d/t ca. Past Anesthesia/Blood Transfusion Reactions: Postoperative Nausea & Vomiting (PONV) Smoking Status: Never smoker - Past Family History Mother Family Medical History: Cancer Father Family Medical History: Cancer Medications and Allergies Home Medications Medication Instructions Recorded Confirmed Type Enalapril [Vasotec] 20 mg PO QAM 12/16/13 03/05/19 History carBAMazepine [Carbatrol] 600 mg PO BID 12/16/13 03/05/19 History glipiZIDE [Glucotrol] 5 mg PO BID 12/16/13 03/05/19 History hydrALAZINE HCL [Apresoline] 50 mg PO TID 12/16/13 03/05/19 History levETIRAcetam [Keppra] 1,000 mg PO BID 12/16/13 03/05/19 History Aspirin 325 mg PO HS 04/21/14 03/05/19 History Atorvastatin [Lipitor] 20 mg PO HS 04/21/14 03/05/19 History Hydrocodone/Acetaminophen 1 tab PO Q6HR PRN 04/21/14 03/05/19 History [Hydrocodone/Acetaminophen 10-325] Topiramate 50 mg PO BID 04/21/14 03/05/19 History Diphenox-Atrop 2.5-0.025 mg 1 tab PO QID PRN 07/08/17 03/05/19 History [Lomotil] Enalapril [Vasotec] 10 mg PO HS 07/08/17 03/05/19 History metFORMIN HCL [Glucophage] 500 mg PO BID 07/08/17 03/05/19 History Hydrochlorothiazide [Hydrodiuril] 25 mg PO DAILY #30 tab 07/09/17 03/05/19 Rx Sertraline [Zoloft] 100 mg PO DAILY 12/16/18 03/05/19 History Atenolol [Tenormin] 25 mg PO BID 03/05/19 03/05/19 History amLODIPine [Norvasc] 5 mg PO 1200,2200 03/05/19 03/05/19 History Allergies Allergy/AdvReac Type Severity Reaction Status Date / Time No Known Allergies Allergy Verified 03/05/19 11:14 Physical Exam Vitals: Vital Signs Temp Pulse Pulse Pulse Resp BP BP 03/10/19 08:05 98.1 F 70 18 129/68 03/10/19 04:40 98.1 F 71 16 149/75 03/10/19 01:10 98.1 F 84 16 137/62 03/09/19 20:59 104 H 16 129/56 03/09/19 20:44 103 H 16 119/53 03/09/19 20:29 103 H 16 123/59 03/09/19 20:14 104 H 16 138/62 03/09/19 20:08 97.8 F 102 H 16 138/63 03/09/19 19:17 99 18 141/53 03/09/19 19:01 101 H 18 154/69 03/09/19 18:47 102 H 16 158/62 03/09/19 18:32 104 H 24 171/77 03/09/19 18:15 92 18 161/71 03/09/19 17:58 99 F 84 18 176/78 03/09/19 12:45 53 L 18 143/64 03/09/19 11:37 97.9 F 62 18 160/72 Pulse Ox 03/10/19 08:05 100 03/10/19 04:40 96 03/10/19 01:10 97 03/09/19 20:59 98 03/09/19 20:44 96 03/09/19 20:29 97 03/09/19 20:14 97 03/09/19 20:08 97 03/09/19 19:17 95 03/09/19 19:01 95 03/09/19 18:47 92 L 03/09/19 18:32 97 03/09/19 18:15 99 03/09/19 17:58 98 03/09/19 12:45 98 03/09/19 11:37 95 Intake and Output 03/09/19 03/10/19 03/10/19 22:59 06:59 14:59 Intake Total 1050 Output Total 30 80 400 Balance 1020 -80 -400 Intake: IV 1050 Output: Drainage 80 Left Breast 45 drain 1-right 5 drain 2 30 Urine 400 Estimated Blood Loss 30 Other: # Voids 1 1 Results CBC & Chem 7: 03/10/19 06:57 Labs: Abnormal Lab Results - Last 24 Hours (Table) 03/09/19 03/10/19 03/10/19 Range/Units 11:43 06:43 06:57 WBC 11.1 H (3.8-10.6) k/uL POC Glucose (mg/dL) 135 H 132 H (75-99) mg/dL
[2019-03-10] MEDS: HYDROCHLOROTHIAZIDE 25 MG TAB PO SCH (09:45)
[2019-03-10] MEDS: SERTRALINE 100 MG TAB PO SCH (09:47)
--- NOTE | 2019-03-10 10:27 | P.PN ---
Subjective Progress Note Date: 03/10/19 Principal diagnosis: Postop day #1 left mastectomy sentinel node biopsy, right scar revision The patient is a 64-year-old white female who is status post left breast mastectomy and replaced scar revision. Postoperatively she is doing well. She is tolerating breakfast. She does have some continued discomfort related to the surgery. Her MAUREEN drain output is 5 mL on the right and on the left one drain is 30 mL and the second drain is 45 mL the drainage is serous in nature. Objective - Vital Signs Vital signs: Vital Signs Temp 98.1 F 03/10/19 08:05 Pulse 70 03/10/19 08:05 Resp 18 03/10/19 08:05 BP 129/68 03/10/19 08:05 Pulse Ox 100 03/10/19 08:05 Intake & Output 03/09/19 03/10/19 03/10/19 18:59 06:59 18:59 Intake Total 1650 400 Output Total 30 80 400 Balance 1620 320 -400 Intake: IV 1650 400 Output: Drainage 80 Left Breast 45 drain 1-right 5 drain 2 30 Urine 400 Estimated Blood Loss 30 Other: # Voids 1 - Constitutional General appearance: Present: obese - EENT Eyes: Present: EOMI ENT: Present: hearing grossly normal - Neck Neck: Present: normal ROM - Respiratory Respiratory: bilateral: CTA - Cardiovascular Rhythm: regular Heart sounds: normal: S1, S2 - Integumentary Integumentary Comment(s): Incision clean and dry right and left chest wall No evidence of any hematoma MAUREEN output is serosanguineous Dressing changed - Labs CBC & Chem 7: 03/10/19 06:57 Labs: Abnormal Lab Results - Last 24 Hours (Table) 03/09/19 03/10/19 03/10/19 Range/Units 11:43 06:43 06:57 WBC 11.1 H (3.8-10.6) k/uL POC Glucose (mg/dL) 135 H 132 H (75-99) mg/dL Assessment and Plan Assessment: Impression: 1. Patient stable postop day #1 left breast mastectomy with sentinel node biopsy, right breast scar revision 2. MAUREEN output is serosanguineous 3. Patient with postop incisional pain Plan: 1. Continue pain management 2. Medical management of medical conditions 3. Probable discharge home tomorrow with home health care
[2019-03-10] MEDS: LISINOPRIL 20 MG TAB PO SCH (11:47)
[2019-03-10 12:27] LABS: Glucose,Whole Blood 164 mg/dL (75-99)
[2019-03-10] MEDS: amLODIPine 5 MG TAB PO SCH ×2 (12:34→21:26)
[2019-03-10 17:34] LABS: Glucose,Whole Blood 162 mg/dL (75-99)
[2019-03-10] MEDS: hydrALAZINE HCL 50 MG TAB PO SCH (19:41)
[2019-03-10 20:11] LABS: Glucose,Whole Blood 199 mg/dL (75-99)
[2019-03-10] MEDS ORDERED: ASPIRIN 325 MG TAB PO SCH (21:00)
[2019-03-10] MEDS ORDERED: LISINOPRIL 20 MG TAB PO SCH (21:00)
[2019-03-10] MEDS: glipiZIDE 5 MG TAB PO SCH (21:25)
[2019-03-11] MEDS: hydrALAZINE HCL 50 MG TAB PO SCH ×2 (00:55→10:46)
[2019-03-11] MEDS: HEPARIN SODIUM,PORCINE 5,000 UNIT/ML 1 ML VIAL SQ SCH ×2 (04:15→08:33)
[2019-03-11 07:23] LABS: Glucose,Whole Blood 143 mg/dL (75-99)
[2019-03-11] MEDS: INSULIN ASPART (NovoLOG) 100 UNIT/ML VIAL SQ SCH ×2 (07:24→12:30)
[2019-03-11] MEDS: HYDROmorphone 1 MG/ML 1 ML SYRINGE IV PRN ×2 (08:32→09:04)
--- NOTE | 2019-03-11 08:51 | P.PN ---
Subjective Progress Note Date: 03/11/19 Principal diagnosis: Postop day #2 left mastectomy sentinel node biopsy, right scar revision The patient is a 64-year-old white female who is status post left breast mastectomy and replaced scar revision. Postoperatively she is doing well. She is tolerating her diet. S Her MAUREEN drain output is serosanguineous on both sides. Her dressing was changed. Her incisions are healing well. There is no evidence of any hematoma or infection. Objective - Vital Signs Vital signs: Vital Signs Temp 98.7 F 03/11/19 07:35 Pulse 68 03/11/19 07:35 Resp 16 03/11/19 07:35 BP 128/75 03/11/19 07:35 Pulse Ox 97 03/11/19 07:35 Intake & Output 03/10/19 03/11/19 03/11/19 18:59 06:59 18:59 Output Total 475 198 Balance -475 -198 Output: Drainage 75 198 Left Breast 50 75 drain 1-right 5 83 drain 2 20 40 Urine 400 Other: # Voids 4 2 - Constitutional General appearance: Present: obese - EENT Eyes: Present: EOMI ENT: Present: hearing grossly normal - Neck Neck: Present: normal ROM - Respiratory Respiratory: bilateral: CTA - Cardiovascular Rhythm: regular Heart sounds: normal: S1, S2 - Integumentary Integumentary Comment(s): Incisions clean and dry No evidence of any hematoma or infection MAUREEN output serosanguineous from all drains Integumentary: Present: normal turgor - Musculoskeletal Musculoskeletal: Present: gait normal - Psychiatric Psychiatric: Present: A&O x's 3, appropriate affect, intact judgment & insight - Labs CBC & Chem 7: 03/10/19 06:57 Labs: Abnormal Lab Results - Last 24 Hours (Table) 03/10/19 03/10/19 03/10/19 Range/Units 12:25 17:32 20:08 POC Glucose (mg/dL) 164 H 162 H 199 H (75-99) mg/dL 03/11/19 Range/Units 07:16 POC Glucose (mg/dL) 143 H (75-99) mg/dL Assessment and Plan Assessment: Impression: 1. Patient stable postop day #2 left breast mastectomy with sentinel node biopsy, right breast scar revision 2. MAUREEN output is serosanguineous 3. Patient with postop incisional pain improved Plan: 1. Continue present therapy 2. Medical management of medical conditions 3. Probable discharge home f ok with medicine 4. teach drain care
--- NOTE | 2019-03-11 08:53 | P.DS ---
Providers Attending physician: Mariia Chen Consults: 03/09/19 17:55 Consult Physician Routine Consulting Provider: Flynn Siegel Consult Reason/Comments: medical managment Do you want consulting provider notified?: Yes Primary care physician: Flynn Siegel Plan - Discharge Summary Discharge Rx Participant: No New Discharge Prescriptions: No Action levETIRAcetam [Keppra] 1,000 mg PO BID hydrALAZINE HCL [Apresoline] 50 mg PO TID glipiZIDE [Glucotrol] 5 mg PO BID carBAMazepine [Carbatrol] 600 mg PO BID Enalapril [Vasotec] 20 mg PO QAM Atorvastatin [Lipitor] 20 mg PO HS Aspirin 325 mg PO HS Topiramate 50 mg PO BID Hydrocodone/Acetaminophen [Hydrocodone/Acetaminophen 10-325] 1 tab PO Q6HR PRN PRN Reason: Pain metFORMIN HCL [Glucophage] 500 mg PO BID Enalapril [Vasotec] 10 mg PO HS Diphenox-Atrop 2.5-0.025 mg [Lomotil] 1 tab PO QID PRN PRN Reason: Loose Stool Hydrochlorothiazide [Hydrodiuril] 25 mg PO DAILY #30 tab Sertraline [Zoloft] 100 mg PO DAILY amLODIPine [Norvasc] 5 mg PO 1200,2200 Atenolol [Tenormin] 25 mg PO BID Discharge Medication List Enalapril [Vasotec] 20 mg PO QAM 12/16/13 [History] carBAMazepine [Carbatrol] 600 mg PO BID 12/16/13 [History] glipiZIDE [Glucotrol] 5 mg PO BID 12/16/13 [History] hydrALAZINE HCL [Apresoline] 50 mg PO TID 12/16/13 [History] levETIRAcetam [Keppra] 1,000 mg PO BID 12/16/13 [History] Aspirin 325 mg PO HS 04/21/14 [History] Atorvastatin [Lipitor] 20 mg PO HS 04/21/14 [History] Hydrocodone/Acetaminophen [Hydrocodone/Acetaminophen 10-325] 1 tab PO Q6HR PRN 04/21/14 [History] Topiramate 50 mg PO BID 04/21/14 [History] Diphenox-Atrop 2.5-0.025 mg [Lomotil] 1 tab PO QID PRN 07/08/17 [History] Enalapril [Vasotec] 10 mg PO HS 07/08/17 [History] metFORMIN HCL [Glucophage] 500 mg PO BID 07/08/17 [History] Hydrochlorothiazide [Hydrodiuril] 25 mg PO DAILY #30 tab 07/09/17 [Rx] Sertraline [Zoloft] 100 mg PO DAILY 12/16/18 [History] Atenolol [Tenormin] 25 mg PO BID 03/05/19 [History] amLODIPine [Norvasc] 5 mg PO 1200,2200 03/05/19 [History] Follow up Appointment(s)/Referral(s): Mariia Chen MD [STAFF PHYSICIAN] - 1 Week Patient Instructions/Handouts: *Surgery [facility] - Scopalamine Patch Instructions Activity/Diet/Wound Care/Special Instructions: [facility] [phone] teach drain care, drain and record twice a day and as needed do not drive until seen by DR. Guzman may shower Discharge Disposition: HOME WITH HOME HEALTH SERVICES
[2019-03-11 09:41] VITALS: RESP 20
[2019-03-11] MEDS: ATENOLOL 25 MG TAB PO SCH (10:45)
[2019-03-11] MEDS: carBAMazepine 300 MG CPMP.12HR PO SCH (10:46)
[2019-03-11] MEDS: glipiZIDE 5 MG TAB PO SCH (10:46)
[2019-03-11] MEDS: levETIRAcetam 500 MG TAB PO SCH (10:47)
[2019-03-11] MEDS: HYDROCHLOROTHIAZIDE 25 MG TAB PO SCH (10:47)
[2019-03-11] MEDS: metFORMIN 500 MG TAB PO SCH (10:48)
[2019-03-11] MEDS: SERTRALINE 100 MG TAB PO SCH (10:48)
[2019-03-11] MEDS: LISINOPRIL 20 MG TAB PO SCH (10:48)
[2019-03-11] MEDS: TOPIRAMATE 25 MG TAB PO SCH (10:48)
[2019-03-11] MEDS: ONDANSETRON 4 MG/2 ML VIAL IVP PRN (11:50)
[2019-03-11 12:17] LABS: Glucose,Whole Blood 114 mg/dL (75-99)
[2019-03-11 12:35] VITALS: BP 111/70; PULSE 59; TEMP 97.5
[2019-03-11] MEDS: amLODIPine 5 MG TAB PO SCH (13:41)
== END 2019-03-11 15:16 | disposition home or self-care (01) | DRG 581 ==
LOC: OR 10:59 → 6PED 18:19 → OR 03-11 15:50
PROVIDERS: ADMIT Surgery; ATTEND Surgery
PROC: 0HBTXZZ (ICD-10-PCS; 2019-03-09)
PROC: 07B60ZX Excision of Left Axillary Lymphatic, Open Approach, Diagnostic (ICD-10-PCS; principal; 2019-03-09 13:25)
PROC: 0HTU0ZZ Resection of Left Breast, Open Approach (ICD-10-PCS; 2019-03-09 13:25)
DX: D05.12 Intraductal carcinoma in situ of left breast (principal); I11.9 Hypertensive heart disease without heart failure; E11.9 Type 2 diabetes mellitus without complications; L90.5 Scar conditions and fibrosis of skin; N60.12 Diffuse cystic mastopathy of left breast; E78.5 Hyperlipidemia, unspecified; F32.9 Major depressive disorder, single episode, unspecified; G89.29 Other chronic pain; M54.9 Dorsalgia, unspecified; H81.09 Meniere's disease, unspecified ear; G40.909 Epilepsy, unspecified, not intractable, without status epilepticus; M19.90 Unspecified osteoarthritis, unspecified site; H91.91 Unspecified hearing loss, right ear; E66.9 Obesity, unspecified; Z68.35 Body mass index [BMI] 35.0-35.9, adult; R32 Unspecified urinary incontinence; H02.60 Xanthelasma of unspecified eye, unspecified eyelid; J34.2 Deviated nasal septum; K52.9 Noninfective gastroenteritis and colitis, unspecified; J34.3 Hypertrophy of nasal turbinates; Z79.82 Long term (current) use of aspirin; Z79.84 Long term (current) use of oral hypoglycemic drugs; Z79.899 Other long term (current) drug therapy; Z87.828 Personal history of other (healed) physical injury and trauma; Z87.01 Personal history of pneumonia (recurrent); Z98.42 Cataract extraction status, left eye; Z86.73 Personal history of transient ischemic attack (TIA), and cerebral infarction without residual deficits; Z90.49 Acquired absence of other specified parts of digestive tract; Z98.891 History of uterine scar from previous surgery; Z90.710 Acquired absence of both cervix and uterus; Z98.890 Other specified postprocedural states; Z90.11 Acquired absence of right breast and nipple; Z85.3 Personal history of malignant neoplasm of breast; Z85.038 Personal history of other malignant neoplasm of large intestine; Z85.43 Personal history of malignant neoplasm of ovary; Z85.42 Personal history of malignant neoplasm of other parts of uterus; Z92.3 Personal history of irradiation; Z98.41 Cataract extraction status, right eye; Z80.3 Family history of malignant neoplasm of breast; Z80.42 Family history of malignant neoplasm of prostate; Z80.52 Family history of malignant neoplasm of bladder; Z80.0 Family history of malignant neoplasm of digestive organs; Z80.51 Family history of malignant neoplasm of kidney; Z80.6 Family history of leukemia; Z80.49 Family history of malignant neoplasm of other genital organs
CPT/HCPCS: 38792; 64490; 85025; 88305; 88307; 88331; 88341; 88342

== ENCOUNTER → 2019-03-18 | Outpatient (CLI) | payer MEDICARE, BC ==
--- NOTE | 2019-03-18 14:53 | P.PN ---
Progress Note - Text Progress Note Date: 03/18/19 Shelli is a 64-year-old white female status post revision of right mastectomy scar incision and left breast mastectomy with sentinel node biopsy. Pathology reveals no disease in her lymph nodes. 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 Margins were negative. Postprocedure the patient is doing well with no complications. She has [address] draining #1 and #2 of less than 30 mL for several days and are ready to be taken out. A #3 continues to have over 30 mL and will be left at this time. Physical exam: Incisions: Clean and dry Evidence of any infection no seromas MAUREEN draining serous drainage Lungs: Clear Heart: Regular rate and rhythm Impression: 1. 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 Patient may for drain removal one and 2, we will leave drain [address] at this time Plan: 1. Remove drain went into 2. Medical oncology 3. Follow-up. One week Dr. Siegel
[2019-03-18 15:34] VITALS: BP 118/65; PULSE 73; RESP 20; TEMP 98; BMI 33.3
== END | disposition home or self-care (01) ==
LOC: WWCWWP 14:24
PROVIDERS: ATTEND Surgery
DX: Z53.9 Procedure and treatment not carried out, unspecified reason (principal)

== ENCOUNTER 2019-03-25 12:24 | Emergency (ER) | payer MEDICARE, BC ==
--- NOTE | 2019-03-25 13:32 | ED ---
General Adult HPI - General Chief complaint: Skin/Abscess/Foreign Body Stated complaint: post surg swelling, infection Time Seen by Provider: 03/25/19 12:46 Source: patient, RN notes reviewed, old records reviewed Mode of arrival: ambulatory Limitations: no limitations - History of Present Illness Initial comments: Patient is a 64 year old female with recent bilateral masectomy whom presented today with complaints of swelling over left axilla drain site as of today. Was sent boy [facility] nurse at home. She reports she is to have drain removed on . She reports no pain, fevers or chills. PAtient has been wearing her band, and has been feeling well. - Related Data Home Medications Medication Instructions Recorded Confirmed Enalapril [Vasotec] 20 mg PO QAM 12/16/13 03/25/19 carBAMazepine [Carbatrol] 600 mg PO BID 12/16/13 03/25/19 glipiZIDE [Glucotrol] 5 mg PO BID 12/16/13 03/25/19 hydrALAZINE HCL [Apresoline] 50 mg PO TID 12/16/13 03/25/19 levETIRAcetam [Keppra] 1,000 mg PO BID 12/16/13 03/25/19 Aspirin 325 mg PO HS 04/21/14 03/25/19 Atorvastatin [Lipitor] 20 mg PO QAM 04/21/14 03/25/19 Hydrocodone/Acetaminophen 1 tab PO Q6HR PRN 04/21/14 03/25/19 [Hydrocodone/Acetaminophen 10-325] Topiramate 50 mg PO BID 04/21/14 03/25/19 Diphenox-Atrop 2.5-0.025 mg 1 tab PO QID PRN 07/08/17 03/25/19 [Lomotil] Enalapril [Vasotec] 10 mg PO HS 07/08/17 03/25/19 metFORMIN HCL [Glucophage] 500 mg PO BID 07/08/17 03/25/19 Sertraline [Zoloft] 100 mg PO DAILY 12/16/18 03/25/19 Atenolol [Tenormin] 25 mg PO BID 03/05/19 03/25/19 amLODIPine [Norvasc] 5 mg PO BID@1200,2200 03/05/19 03/25/19 Previous Rx's Medication Instructions Recorded Hydrochlorothiazide [Hydrodiuril] 25 mg PO DAILY #30 tab 07/09/17 Allergies Allergy/AdvReac Type Severity Reaction Status Date / Time No Known Allergies Allergy Verified 03/25/19 13:37 Review of Systems ROS Statement: Those systems with pertinent positive or pertinent negative responses have been documented in the HPI. ROS Other: All systems not noted in ROS Statement are negative. Past Medical History Past Medical History: Cancer, CVA/TIA, Diabetes Mellitus, Hyperlipidemia, Hypertension, Osteoarthritis (OA), Pneumonia, Seizure Disorder Additional Past Medical History / Comment(s): chronic diarrhea, breast/colon/ovarian,uterine CA, no bp in rt arm. told she had a stroke 03/2014 "blood clot in back of head". hx of head injury 3rd grade, pt states she has "slow thinking process"and seizures started after injury. -last seizure >5 years ago, hx back pain. brain aneurysm 2007,menieres disease, just put on amlodipine about a week ago for BP History of Any Multi-Drug Resistant Organisms: None Reported Past Surgical History: Adenoidectomy, Appendectomy, Bladder Surgery, Bowel Resection, Breast Surgery, Section, Cholecystectomy, Hernia Repair, Hysterectomy, Orthopedic Surgery, Tonsillectomy Additional Past Surgical History / Comment(s): rt mastectomy 15 yrs. ago, manpreet BREAST BX, MANPREET CATARACT SX, BLADDER SUSPENSION, bowel resection x2 d/t ca. Past Anesthesia/Blood Transfusion Reactions: Postoperative Nausea & Vomiting (PONV) Past Psychological History: Depression Smoking Status: Never smoker Past Alcohol Use History: None Reported Past Drug Use History: None Reported - Past Family History Mother Family Medical History: Cancer Father Family Medical History: Cancer General Exam - General Exam Comments Initial Comments: This is a 64 year old female, no distress. Limitations: no limitations General appearance: alert, in no apparent distress Head exam: Present: atraumatic, normocephalic, normal inspection Eye exam: Present: normal appearance, PERRL, EOMI. Absent: scleral icterus, conjunctival injection, periorbital swelling ENT exam: Present: normal exam, mucous membranes moist Neck exam: Present: normal inspection. Absent: tenderness, meningismus, lymphadenopathy Respiratory exam: Present: normal lung sounds bilaterally, other (Well appearing incision sites bilateral breast tissue. swelling over left axilla near MAUREEN drain site. No erythmea. Serosanguenous drainage in MAUREEN drain. ). Absent: respiratory distress, wheezes, rales, rhonchi, stridor Cardiovascular Exam: Present: regular rate, normal rhythm, normal heart sounds. Absent: systolic murmur, diastolic murmur, rubs, gallop, clicks GI/Abdominal exam: Present: soft, normal bowel sounds. Absent: distended, tenderness, guarding, rebound, rigid Extremities exam: Present: normal inspection, full ROM, normal capillary refill. Absent: tenderness, pedal edema, joint swelling, calf tenderness Back exam: Present: normal inspection Neurological exam: Present: alert, oriented X3, CN II-XII intact Psychiatric exam: Present: normal affect, normal mood Course Vital Signs 03/25/19 03/25/19 12:41 13:55 Temperature 98.0 F 98.2 F Pulse Rate 70 65 Respiratory 18 16 Rate Blood Pressure 148/65 125/59 O2 Sat by Pulse 96 97 Oximetry Medical Decision Making - Medical Decision Making This is a 64 year old female with swelling over left axilla. Patient at this time presents today with minimal swelling, no erythema. Drainage is serosanguenous from drain tube. Patient at this time does not show concern for infection. Discussed to monitor for purulent drainage from drain tube, adn redness over axillla. Patient will follow up with surgeon and PCP. Disposition Clinical Impression: Swelling of surgical site Disposition: HOME SELF-CARE Condition: Good Instructions (If sedation given, give patient instructions): Surgical Site Infections (ED) Additional Instructions: Patient advised to follow-up with your surgical physician assistant as hard he discussed her upcoming appointment. Patient should continue to keep the area clean and dry. Wear the managing for support. Monitor the area for redness at this occurs return for recheck.. Return to the emergency department if any alarming signs or symptoms occur. Is patient prescribed a controlled substance at d/c from ED?: No Referrals: Flynn Siegel MD [Primary Care Provider] - 1-2 days Time of Disposition: 13:31
[2019-03-25 14:05] VITALS: BP 125/59; PULSE 65; RESP 16; TEMP 98.2
== END 2019-03-25 13:55 | disposition home or self-care (01) ==
LOC: EC 12:24
DX: T81.89XA Other complications of procedures, not elsewhere classified, initial encounter (principal); E11.9 Type 2 diabetes mellitus without complications; E78.5 Hyperlipidemia, unspecified; F32.9 Major depressive disorder, single episode, unspecified; G40.909 Epilepsy, unspecified, not intractable, without status epilepticus; I10 Essential (primary) hypertension; Z79.82 Long term (current) use of aspirin; Z79.84 Long term (current) use of oral hypoglycemic drugs; Z79.899 Other long term (current) drug therapy; Z86.73 Personal history of transient ischemic attack (TIA), and cerebral infarction without residual deficits; Z85.42 Personal history of malignant neoplasm of other parts of uterus; Z98.890 Other specified postprocedural states; Z90.13 Acquired absence of bilateral breasts and nipples
CPT/HCPCS: 99283

== ENCOUNTER 2019-03-27 11:05 | Inpatient (IN) | payer MEDICARE, BC ==
[2019-03-27] MEDS ORDERED: SODIUM CHLORIDE 0.9% 1,000 ML IV STA ×2 (11:29)
[2019-03-27] MEDS ORDERED: SODIUM CHLORIDE 0.9% 500 ML 500 ML IV STA (11:29)
--- NOTE | 2019-03-27 11:54 | ED ---
Dizziness HPI - General Chief Complaint: Dizziness Stated Complaint: FEVER, POST OP, CHEST PAIN Time Seen by Provider: 03/27/19 11:15 Source: patient, RN notes reviewed, old records reviewed Mode of arrival: ambulatory Limitations: no limitations - History of Present Illness Initial Comments: This is a 64-year-old female the ER for evaluation. Patient resents today for evaluation of not feeling well severe dizziness lightheadedness difficulty with ambulation and no recent fever. Patient has significant medical history with recent surgical history for mastectomy left mastectomy with right breast revision. She does have J-tube and left breast which is having significant discolored drainage. Otherwise patient has no shortness of breath no cough no congestion or nausea vomiting or diarrhea. MD Complaint: dizziness, lightheadedness, difficulty walking -: days(s) Timing: gradual onset Description: sense of movement, lightheadedness, difficulty walking, nausea History of Same: No History of Trauma: No Severity: moderate Improves With: rehydration, rest Worsens With: movement Associated Symptoms: diaphoresis, fever/chills, weakness - Related Data Home Medications Medication Instructions Recorded Confirmed carBAMazepine [Carbatrol] 600 mg PO BID 12/16/13 03/27/19 glipiZIDE [Glucotrol] 5 mg PO BID 12/16/13 03/27/19 hydrALAZINE HCL [Apresoline] 50 mg PO TID 12/16/13 03/27/19 levETIRAcetam [Keppra] 1,000 mg PO BID 12/16/13 03/27/19 Aspirin 325 mg PO HS 04/21/14 03/27/19 Atorvastatin [Lipitor] 20 mg PO QAM 04/21/14 03/27/19 Topiramate 100 mg PO HS 04/21/14 03/27/19 Enalapril [Vasotec] 10 mg PO BID 07/08/17 03/27/19 metFORMIN HCL [Glucophage] 500 mg PO BID 07/08/17 03/27/19 Sertraline [Zoloft] 100 mg PO DAILY 12/16/18 03/27/19 amLODIPine [Norvasc] 5 mg PO BID@1200,2200 03/05/19 03/27/19 Atenolol [Tenormin] 50 mg PO BID 03/27/19 03/27/19 Allergies Allergy/AdvReac Type Severity Reaction Status Date / Time No Known Allergies Allergy Verified 03/27/19 11:45 Review of Systems ROS Statement: Those systems with pertinent positive or pertinent negative responses have been documented in the HPI. ROS Other: All systems not noted in ROS Statement are negative. Past Medical History Past Medical History: Cancer, CVA/TIA, Diabetes Mellitus, Hyperlipidemia, Hypertension, Osteoarthritis (OA), Pneumonia, Seizure Disorder Additional Past Medical History / Comment(s): chronic diarrhea, breast/colon/ovarian,uterine CA, no bp in rt arm. told she had a stroke 03/2014 "blood clot in back of head". hx of head injury 3rd grade, pt states she has "slow thinking process"and seizures started after injury. -last seizure >5 years ago, hx back pain. brain aneurysm 2007,menieres disease, just put on amlodipine about a week ago for BP History of Any Multi-Drug Resistant Organisms: None Reported Past Surgical History: Adenoidectomy, Appendectomy, Bladder Surgery, Bowel Resection, Breast Surgery, Section, Cholecystectomy, Hernia Repair, Hysterectomy, Orthopedic Surgery, Tonsillectomy Additional Past Surgical History / Comment(s): rt mastectomy 15 yrs. ago, manpreet BREAST BX, MANPREET CATARACT SX, BLADDER SUSPENSION, bowel resection x2 d/t ca. L mastectomy Past Anesthesia/Blood Transfusion Reactions: Postoperative Nausea & Vomiting (PONV) Past Psychological History: Depression Smoking Status: Never smoker Past Alcohol Use History: None Reported Past Drug Use History: None Reported - Past Family History Mother Family Medical History: Cancer Father Family Medical History: Cancer General Exam - General Exam Comments Initial Comments: (Does have MAUREEN drain which is yellow tinged drainage, thick, cloudy Limitations: no limitations General appearance: alert, in no apparent distress Head exam: Present: atraumatic, normocephalic, normal inspection Eye exam: Present: normal appearance, PERRL, EOMI. Absent: scleral icterus, conjunctival injection, periorbital swelling ENT exam: Present: normal exam, mucous membranes moist Neck exam: Present: normal inspection. Absent: tenderness, meningismus, lymphadenopathy Respiratory exam: Present: normal lung sounds bilaterally. Absent: respiratory distress, wheezes, rales, rhonchi, stridor Cardiovascular Exam: Present: regular rate, normal rhythm, normal heart sounds. Absent: systolic murmur, diastolic murmur, rubs, gallop, clicks GI/Abdominal exam: Present: soft, normal bowel sounds. Absent: distended, tenderness, guarding, rebound, rigid Extremities exam: Present: normal inspection, full ROM, normal capillary refill. Absent: tenderness, pedal edema, joint swelling, calf tenderness Back exam: Present: normal inspection Neurological exam: Present: alert, oriented X3, CN II-XII intact Psychiatric exam: Present: normal affect, normal mood Skin exam: Present: warm, dry, intact, normal color. Absent: rash Course Vital Signs 03/27/19 11:11 Temperature 99.5 F Pulse Rate 88 Respiratory 18 Rate Blood Pressure 95/56 O2 Sat by Pulse 98 Oximetry - Reevaluation(s) Reevaluation #1: 03/27/19 12:14 Medical record including recent ER visits are reviewed EKG Findings - EKG Comments: EKG Findings:: EKG shows sinus rhythm rate of 79, WI 170, QRS 82, QTc 408 Medical Decision Making - Lab Data Result diagrams: 03/27/19 12:00 03/27/19 12:00 Lab Results 03/27/19 03/27/19 03/27/19 Range/Units 12:00 12:00 12:00 WBC 17.5 H (3.8-10.6) k/uL RBC 4.26 (3.80-5.40) m/uL Hgb 12.0 (11.4-16.0) gm/dL Hct 36.9 (34.0-46.0) % MCV 86.6 (80.0-100.0) fL MCH 28.3 (25.0-35.0) pg MCHC 32.6 (31.0-37.0) g/dL RDW 15.8 H (11.5-15.5) % Plt Count 373 (150-450) k/uL Neutrophils % 78 % Lymphocytes % 14 % Monocytes % 5 % Eosinophils % 1 % Basophils % 0 % Neutrophils # 13.7 H (1.3-7.7) k/uL Lymphocytes # 2.5 (1.0-4.8) k/uL Monocytes # 0.9 (0-1.0) k/uL Eosinophils # 0.2 (0-0.7) k/uL Basophils # 0.1 (0-0.2) k/uL PT 10.6 (9.0-12.0) sec INR 1.0 (<1.2) APTT 25.1 (22.0-30.0) sec D-Dimer 0.45 (<0.60) mg/L FEU Sodium 138 (137-145) mmol/L Potassium 3.7 (3.5-5.1) mmol/L Chloride 102 (98-107) mmol/L Carbon Dioxide 23 (22-30) mmol/L Anion Gap 13 mmol/L BUN 17 (7-17) mg/dL Creatinine 0.83 (0.52-1.04) mg/dL Est GFR (CKD-EPI)AfAm 85 (>60 ml/min/1.73 sqM) Est GFR (CKD-EPI)NonAf 74 (>60 ml/min/1.73 sqM) Glucose 165 H (74-99) mg/dL Plasma Lactic Acid Miles (0.7-2.0) mmol/L Calcium 8.8 (8.4-10.2) mg/dL Phosphorus 2.9 (2.5-4.5) mg/dL Magnesium 1.5 L (1.6-2.3) mg/dL Total Bilirubin 0.7 (0.2-1.3) mg/dL AST 30 (14-36) U/L ALT 24 (9-52) U/L Alkaline Phosphatase 121 (38-126) U/L Creatine Kinase 386 H (30-135) U/L Troponin I (0.000-0.034) ng/mL NT-Pro-B Natriuret Pep pg/mL Total Protein 6.5 (6.3-8.2) g/dL Albumin 3.9 (3.5-5.0) g/dL Urine Color Urine Appearance (Clear) Urine pH (5.0-8.0) Ur Specific Comfort (1.001-1.035) Urine Protein (Negative) Urine Glucose (UA) (Negative) Urine Ketones (Negative) Urine Blood (Negative) Urine Nitrite (Negative) Urine Bilirubin (Negative) Urine Urobilinogen (<2.0) mg/dL Ur Leukocyte Esterase (Negative) Urine RBC (0-5) /hpf Urine WBC (0-5) /hpf Ur Squamous Epith Cells (0-4) /hpf Amorphous Sediment (None) /hpf Urine Bacteria (None) /hpf Hyaline Casts (0-2) /lpf Urine Mucus (None) /hpf 03/27/19 03/27/19 03/27/19 Range/Units 12:00 12:00 12:00 WBC (3.8-10.6) k/uL RBC (3.80-5.40) m/uL Hgb (11.4-16.0) gm/dL Hct (34.0-46.0) % MCV (80.0-100.0) fL MCH (25.0-35.0) pg MCHC (31.0-37.0) g/dL RDW (11.5-15.5) % Plt Count (150-450) k/uL Neutrophils % % Lymphocytes % % Monocytes % % Eosinophils % % Basophils % % Neutrophils # (1.3-7.7) k/uL Lymphocytes # (1.0-4.8) k/uL Monocytes # (0-1.0) k/uL Eosinophils # (0-0.7) k/uL Basophils # (0-0.2) k/uL PT (9.0-12.0) sec INR (<1.2) APTT (22.0-30.0) sec D-Dimer (<0.60) mg/L FEU Sodium (137-145) mmol/L Potassium (3.5-5.1) mmol/L Chloride (98-107) mmol/L Carbon Dioxide (22-30) mmol/L Anion Gap mmol/L BUN (7-17) mg/dL Creatinine (0.52-1.04) mg/dL Est GFR (CKD-EPI)AfAm (>60 ml/min/1.73 sqM) Est GFR (CKD-EPI)NonAf (>60 ml/min/1.73 sqM) Glucose (74-99) mg/dL Plasma Lactic Acid Miles 2.1 H* (0.7-2.0) mmol/L Calcium (8.4-10.2) mg/dL Phosphorus (2.5-4.5) mg/dL Magnesium (1.6-2.3) mg/dL Total Bilirubin (0.2-1.3) mg/dL AST (14-36) U/L ALT (9-52) U/L Alkaline Phosphatase (38-126) U/L Creatine Kinase (30-135) U/L Troponin I <0.012 (0.000-0.034) ng/mL NT-Pro-B Natriuret Pep 272 pg/mL Total Protein (6.3-8.2) g/dL Albumin (3.5-5.0) g/dL Urine Color Urine Appearance (Clear) Urine pH (5.0-8.0) Ur Specific Comfort (1.001-1.035) Urine Protein (Negative) Urine Glucose (UA) (Negative) Urine Ketones (Negative) Urine Blood (Negative) Urine Nitrite (Negative) Urine Bilirubin (Negative) Urine Urobilinogen (<2.0) mg/dL Ur Leukocyte Esterase (Negative) Urine RBC (0-5) /hpf Urine WBC (0-5) /hpf Ur Squamous Epith Cells (0-4) /hpf Amorphous Sediment (None) /hpf Urine Bacteria (None) /hpf Hyaline Casts (0-2) /lpf Urine Mucus (None) /hpf 03/27/19 Range/Units 12:00 WBC (3.8-10.6) k/uL RBC (3.80-5.40) m/uL Hgb (11.4-16.0) gm/dL Hct (34.0-46.0) % MCV (80.0-100.0) fL MCH (25.0-35.0) pg MCHC (31.0-37.0) g/dL RDW (11.5-15.5) % Plt Count (150-450) k/uL Neutrophils % % Lymphocytes % % Monocytes % % Eosinophils % % Basophils % % Neutrophils # (1.3-7.7) k/uL Lymphocytes # (1.0-4.8) k/uL Monocytes # (0-1.0) k/uL Eosinophils # (0-0.7) k/uL Basophils # (0-0.2) k/uL PT (9.0-12.0) sec INR (<1.2) APTT (22.0-30.0) sec D-Dimer (<0.60) mg/L FEU Sodium (137-145) mmol/L Potassium (3.5-5.1) mmol/L Chloride (98-107) mmol/L Carbon Dioxide (22-30) mmol/L Anion Gap mmol/L BUN (7-17) mg/dL Creatinine (0.52-1.04) mg/dL Est GFR (CKD-EPI)AfAm (>60 ml/min/1.73 sqM) Est GFR (CKD-EPI)NonAf (>60 ml/min/1.73 sqM) Glucose (74-99) mg/dL Plasma Lactic Acid Miles (0.7-2.0) mmol/L Calcium (8.4-10.2) mg/dL Phosphorus (2.5-4.5) mg/dL Magnesium (1.6-2.3) mg/dL Total Bilirubin (0.2-1.3) mg/dL AST (14-36) U/L ALT (9-52) U/L Alkaline Phosphatase (38-126) U/L Creatine Kinase (30-135) U/L Troponin I (0.000-0.034) ng/mL NT-Pro-B Natriuret Pep pg/mL Total Protein (6.3-8.2) g/dL Albumin (3.5-5.0) g/dL Urine Color Yellow Urine Appearance Cloudy H (Clear) Urine pH 5.5 (5.0-8.0) Ur Specific Comfort 1.024 (1.001-1.035) Urine Protein 1+ H (Negative) Urine Glucose (UA) Negative (Negative) Urine Ketones Negative (Negative) Urine Blood Negative (Negative) Urine Nitrite Negative (Negative) Urine Bilirubin Negative (Negative) Urine Urobilinogen <2.0 (<2.0) mg/dL Ur Leukocyte Esterase Large H (Negative) Urine RBC 7 H (0-5) /hpf Urine WBC 57 H (0-5) /hpf Ur Squamous Epith Cells 7 H (0-4) /hpf Amorphous Sediment Rare H (None) /hpf Urine Bacteria Occasional H (None) /hpf Hyaline Casts 13 H (0-2) /lpf Urine Mucus Occasional H (None) /hpf Disposition Clinical Impression: Dehydration, Fever, UTI (urinary tract infection) Disposition: ADMITTED IP TO THIS HOSP Condition: Good Is patient prescribed a controlled substance at d/c from ED?: No Referrals: Flynn Siegel MD [Primary Care Provider] - 1-2 days
[2019-03-27 12:19] LABS: Basophils # (A) 0.1 k/uL (0-0.2); Basophils % (A) 0 %; Eosinophils # (A) 0.2 k/uL (0-0.7); Eosinophils % (A) 1 %; HCT 36.9 % (34.0-46.0); Lymphocytes # (A) 2.5 k/uL (1.0-4.8); Lymphocytes % (A) 14 %; MCH 28.3 pg (25.0-35.0); MCHC 32.6 g/dL (31.0-37.0); MCV 86.6 fL (80.0-100.0); Mean Platelet Volume 7.2; Monocytes # (A) 0.9 k/uL (0-1.0); Monocytes % (A) 5 %; Neutrophils # (A) 13.7 k/uL (1.3-7.7); Neutrophils % (A) 78 %; Platelet Count 373 k/uL (150-450); RBC 4.26 m/uL (3.80-5.40); RDW 15.8 % (11.5-15.5); WBC 17.5 k/uL (3.8-10.6)
[2019-03-27 12:32] LABS: D-Dimer 0.45 mg/L FEU (<0.60); Partial Thromboplastin Time 25.1 sec (22.0-30.0); Prothrombin Time 10.6 sec (9.0-12.0)
[2019-03-27 12:36] LABS: Albumin 3.9 g/dL (3.5-5.0); Calcium 8.8 mg/dL (8.4-10.2); Magnesium 1.5 mg/dL (1.6-2.3); Phosphorus 2.9 mg/dL (2.5-4.5); Potassium 3.7 mmol/L (3.5-5.1); Total Bilirubin 0.7 mg/dL (0.2-1.3); Total Protein 6.5 g/dL (6.3-8.2)
[2019-03-27 12:38] LABS: Amorphous Sediment,Urine Rare /hpf; Appearance,Urine Cloudy (Clear); Bacteria,Urine Occasional /hpf; Bilirubin,Urine Negative (Negative); Blood,Urine Negative (Negative); Color,Urine Yellow; Glucose,Urine (UA) Negative (Negative); Hyaline Casts,Urine 13 /lpf (0-2); Ketones,Urine Negative (Negative); Leukocyte Esterase,Urine Large (Negative); Mucus,Urine Occasional /hpf; Nitrite,Urine Negative (Negative); PH, Urine 5.5 (5.0-8.0); Protein,Urine 1+ (Negative); RBC,Urine 7 /hpf (0-5); Specific Gravity,Urine 1.024 (1.001-1.035); Squamous Epithelial Cell,Urine 7 /hpf (0-4); Urobilinogen,Urine <2.0 mg/dL (<2.0); WBC,Urine 57 /hpf (0-5)
--- NOTE | 2019-03-27 12:48 | XR ---
EXAMINATION TYPE: XR chest 2V DATE OF EXAM: 03/27/2019 HISTORY: Weakness. REFERENCE: Previous study dated 07/08/2017. FINDINGS: The heart is mildly prominent. The lungs are clear. Pleural spaces are clear. IMPRESSION: CARDIOMEGALY.
[2019-03-27] MEDS ORDERED: VANCOMYCIN IV PER PHARMACY 1 EACH MISC MISCELLANE PRN (13:19)
[2019-03-27] MEDS ORDERED: SODIUM CHLORIDE 0.9% 1,000 ML IV ONE (13:19)
[2019-03-27] MEDS ORDERED: VANCOMYCIN 1,750 MG in SODIUM CHLORIDE 0.9% 500 ML 500 ML IVPB ONE (14:00)
[2019-03-27] MEDS ORDERED: ACETAMINOPHEN TAB 500 MG TAB PO PRN (14:35)
[2019-03-27 16:45] VITALS: BMI 34.4
[2019-03-27] MEDS: hydrALAZINE HCL 50 MG TAB PO SCH ×2 (17:23→20:44)
--- NOTE | 2019-03-27 18:38 | P.HPIM ---
History of Present Illness Chief complaint Fever and weakness History of present illness Patient presented to emergency room with weakness and fevers over the last 24-48 hours. Patient approximately a week ago did have a left mastectomy along with a right breast revision. Patient for several days was doing well until the above symptoms started. She had temperatures at home of 102 at times. She has had some drainage from her surgical site. Also some sharp left chest discomfort with turning at times. She denied any hematuria or dysuria. Today was the second time she had presented to the emergency room. Patient states she has had occasional urinary tract infections in the past but not very frequent. She is not sure whether she had a catheter placed during her previous surgery in her bladder. Past medical history: The patient is followed by Dr. Siegel for whom I am covering. Besides history stated above patient has a past history of colon Seizure disorder Previous right breast cancer resected in 1994 Hypertension Type 2 diabetes on oral agents Hyperlipidemia No known ALLERGIES Home medications Metformin 500 mg twice a day Keppra thousand milligrams twice a day Hydralazine 50 mg 3 times a day Glipizide 5 mg twice a day Carbatrol 600 mg twice a day Amlodipine 5 mg twice a day Topiramate 100 mg at at bedtime Zoloft 100 mg daily Enalapril 10 mg twice a day Atorvastatin 20 mg daily Atenolol 50 mg twice a day Aspirin 325 mg at at bedtime. The patient has history of ovarian, uterine, previous right breast cancer and colon cancer. Previous surgery includes cholecystectomy, hysterectomy, appendectomy no previous bladder suspension and hernia repair. Apparently patient also has a history of a brain aneurysm Review of systems Positive for distended in the history of present illness. She denies any unusual headache or visual disturbances. No cough or unusual phlegm production. No nausea or vomiting. Patient states she often has loose stools but denies any recent diarrhea or change or blood in stools. Social history No history of smoking or excessive alcohol intake. Apparently she lives with her who was also recently in the intensive care unit here with cardiac concerns. Family history Mother had breast cancer and leukemia Daughter also has had a breast cancer Father with history of kidney cancer bladder and colon and prostate cancer She has an aunt with breast cancer Paternal uncles also with cancers include brain, stomach, bladder and prostate Physical examination The patient is sitting up in bed today alert and oriented. No acute distress. Temperature was 99 but is now down to 97.6 with a pulse of 76 and respirations 14. Blood pressure 141/54 and she is 99% saturated on room air. Lungs were clear. Heart tones were regular without murmurs. Patient does have a resting and wrap around the upper chest covering both breast and surgical areas. There is a drain present. Abdomen is mildly obese but soft and nontender without rebound guarding or masses detected. Extremities reveal no unusual edema. Pelvic and rectal exam deferred. Neurologically she is alert and oriented. No cranial nerve deficits. No focal weakness noted. Laboratory White count is 17.5 with 13.7 neutrophils. Hemoglobin 12 and platelet count of 373. INR is 1 with a PTT of 25 and a d-dimer 0.45. Electrolytes were normal. Potassium 3.7 and sodium 138. CO2 content 23. BUN of 17 with creatinine of 0.83 given her GFR of 74. A blood sugar 165. Venous lactic acid was elevated at 2.1 but has decreased down to 1.5. Calcium normal at 8.8 Liver enzymes were unremarkable. BNP 272. Creatinine kinase is elevated at 386 but troponin was less than 0.012. Urinalysis was red is cloudy with large amount of leukocyte esterases. 57 white cells. Only 7 RBCs and epithelial cells present. Chest x-ray is reported as cardiomegaly without mention of any infiltrates. EKG showed a sinus rhythm with some poor wave progression anteriorly with without acute ischemic changes noted. Impressions 1. Overall this is a 64-year-old female who has recently undergone bilateral breast surgeries. At this time appears to have a urinary tract infection with fevers and elevated lactic acid levels. Clinically she presents with weakness. Consistent with sepsis with elevated white count. 2. Patient does have some drainage in her surgical drainage tube. She does have some chest discomfort which appears to be more musculoskeletal. 3. Other past medical history as stated above in the past medical history section of this report. Plans Patient was given ceftriaxone and vancomycin in the emergency room. Urine culture to be obtained. Surgery to evaluate the wound for possible secondary infection and for any further recommendations. Urine for culture and sensitivity. Further recommendations pending clinical response and results of above as discussed with patient and medical staff. Past Medical History Past Medical History: Cancer, CVA/TIA, Diabetes Mellitus, Hyperlipidemia, Hypertension, Osteoarthritis (OA), Pneumonia, Seizure Disorder Additional Past Medical History / Comment(s): chronic diarrhea, breast/colon/ovarian,uterine CA, no bp in rt arm. told she had a stroke 03/2014 "blood clot in back of head". hx of head injury 3rd grade, pt states she has "slow thinking process"and seizures started after injury. -last seizure >5 years ago, hx back pain. brain aneurysm 2007,menieres disease, just put on amlodipine about a week ago for BP History of Any Multi-Drug Resistant Organisms: None Reported Past Surgical History: Adenoidectomy, Appendectomy, Bladder Surgery, Bowel Resection, Breast Surgery, Section, Cholecystectomy, Hernia Repair, Hysterectomy, Orthopedic Surgery, Tonsillectomy Additional Past Surgical History / Comment(s): rt mastectomy 15 yrs. ago, manpreet BREAST BX, MANPREET CATARACT SX, BLADDER SUSPENSION, bowel resection x2 d/t ca. L mastectomy. left mastectomy 02/2019 Past Anesthesia/Blood Transfusion Reactions: Postoperative Nausea & Vomiting (PONV) Past Psychological History: Depression Additional Psychological History / Comment(s): . Smoking Status: Never smoker Past Alcohol Use History: None Reported Past Drug Use History: None Reported - Past Family History Mother Family Medical History: Cancer Father Family Medical History: Cancer Medications and Allergies Home Medications Medication Instructions Recorded Confirmed Type carBAMazepine [Carbatrol] 600 mg PO BID 12/16/13 03/27/19 History glipiZIDE [Glucotrol] 5 mg PO BID 12/16/13 03/27/19 History hydrALAZINE HCL [Apresoline] 50 mg PO TID 12/16/13 03/27/19 History levETIRAcetam [Keppra] 1,000 mg PO BID 12/16/13 03/27/19 History Aspirin 325 mg PO HS 04/21/14 03/27/19 History Atorvastatin [Lipitor] 20 mg PO QAM 04/21/14 03/27/19 History Topiramate 100 mg PO HS 04/21/14 03/27/19 History Enalapril [Vasotec] 10 mg PO BID 07/08/17 03/27/19 History metFORMIN HCL [Glucophage] 500 mg PO BID 07/08/17 03/27/19 History Sertraline [Zoloft] 100 mg PO DAILY 12/16/18 03/27/19 History amLODIPine [Norvasc] 5 mg PO BID@1200,2200 03/05/19 03/27/19 History Atenolol [Tenormin] 50 mg PO BID 03/27/19 03/27/19 History Allergies Allergy/AdvReac Type Severity Reaction Status Date / Time No Known Allergies Allergy Verified 03/27/19 11:45 Physical Exam Vitals: Vital Signs Temp Pulse Pulse Resp BP BP Pulse Ox 03/27/19 16:23 97.6 F 76 14 141/54 99 03/27/19 16:02 99.0 F 03/27/19 13:50 76 12 134/50 95 03/27/19 13:40 75 12 97/52 96 03/27/19 13:33 76 18 97/52 96 03/27/19 13:30 78 22 110/69 91 L 03/27/19 13:10 80 20 131/55 94 L 03/27/19 13:00 77 17 123/52 95 03/27/19 12:20 77 18 151/63 03/27/19 12:10 78 20 152/66 03/27/19 12:00 81 18 119/61 03/27/19 11:11 99.5 F 88 18 95/56 98 Intake and Output 03/27/19 03/27/19 03/27/19 06:59 14:59 22:59 Output Total 120 Balance -120 Output: Drainage 120 Left Breast 120 Other: Weight 85.275 kg Results CBC & Chem 7: 03/27/19 12:00 03/27/19 12:00 Labs: Abnormal Lab Results - Last 24 Hours (Table) 03/27/19 03/27/19 03/27/19 Range/Units 12:00 12:00 12:00 WBC 17.5 H (3.8-10.6) k/uL RDW 15.8 H (11.5-15.5) % Neutrophils # 13.7 H (1.3-7.7) k/uL Glucose 165 H (74-99) mg/dL Plasma Lactic Acid Miles 2.1 H* (0.7-2.0) mmol/L Magnesium 1.5 L (1.6-2.3) mg/dL Creatine Kinase 386 H (30-135) U/L Urine Appearance (Clear) Urine Protein (Negative) Ur Leukocyte Esterase (Negative) Urine RBC (0-5) /hpf Urine WBC (0-5) /hpf Ur Squamous Epith Cells (0-4) /hpf Amorphous Sediment (None) /hpf Urine Bacteria (None) /hpf Hyaline Casts (0-2) /lpf Urine Mucus (None) /hpf 03/27/19 Range/Units 12:00 WBC (3.8-10.6) k/uL RDW (11.5-15.5) % Neutrophils # (1.3-7.7) k/uL Glucose (74-99) mg/dL Plasma Lactic Acid Miles (0.7-2.0) mmol/L Magnesium (1.6-2.3) mg/dL Creatine Kinase (30-135) U/L Urine Appearance Cloudy H (Clear) Urine Protein 1+ H (Negative) Ur Leukocyte Esterase Large H (Negative) Urine RBC 7 H (0-5) /hpf Urine WBC 57 H (0-5) /hpf Ur Squamous Epith Cells 7 H (0-4) /hpf Amorphous Sediment Rare H (None) /hpf Urine Bacteria Occasional H (None) /hpf Hyaline Casts 13 H (0-2) /lpf Urine Mucus Occasional H (None) /hpf Microbiology - Last 24 Hours (Table) 03/27/19 12:00 Urine Culture - Preliminary Urine,Voided Thrombosis Risk Factor Assmnt - Choose All That Apply Any of the Below Risk Factors Present?: Yes Each Factor Represents 1 point: History of prior major surgery (<1month), Obesity (BMI >25) Other Risk Factors: Yes Each Risk Factor Represents 2 Points: Age 61-74 years, Malignancy Other congenital or acquired thrombophilia - If yes, enter type in comment: Yes Each Risk Factor Represents 5 Points: Major surgery lasting over 3 hours Thrombosis Risk Factor Assessment Total Risk Factor Score: 11 Thrombosis Risk Factor Assessment Level: High Risk
[2019-03-27] MEDS ORDERED: HYDROcodone/APAP 5-325MG 1 EACH TAB PO PRN ×2 (20:21)
[2019-03-27] MEDS: levETIRAcetam 500 MG TAB PO SCH (20:44)
[2019-03-27] MEDS: ATENOLOL 50 MG TAB PO SCH (20:44)
[2019-03-27] MEDS: glipiZIDE 5 MG TAB PO SCH (20:44)
[2019-03-27] MEDS: ASPIRIN 325 MG TAB PO SCH (20:44)
[2019-03-27] MEDS: TOPIRAMATE 100 MG TAB PO SCH (20:44)
[2019-03-27] MEDS: carBAMazepine 300 MG CPMP.12HR PO SCH (20:44)
[2019-03-27] MEDS: IBUPROFEN 400 MG TAB PO SCH (20:44)
[2019-03-27 21:15] LABS: Glucose,Whole Blood 200 mg/dL (75-99)
[2019-03-27 22:41] LABS: Glucose,Whole Blood 137 mg/dL (75-99)
[2019-03-27] MEDS: amLODIPine 5 MG TAB PO SCH (22:51)
[2019-03-28] MEDS: VANCOMYCIN 1,500 MG in SODIUM CHLORIDE 0.9% 250 ML IVPB SCH ×2 (06:10→23:13)
[2019-03-28 07:27] LABS: Glucose,Whole Blood 142 mg/dL (75-99)
[2019-03-28] MEDS: ATORVASTATIN 20 MG TAB PO SCH (08:25)
[2019-03-28] MEDS: SERTRALINE 100 MG TAB PO SCH (08:25)
[2019-03-28] MEDS: hydrALAZINE HCL 50 MG TAB PO SCH ×3 (08:25→21:22)
[2019-03-28] MEDS: LISINOPRIL 20 MG TAB PO SCH (08:26)
[2019-03-28] MEDS: metFORMIN 500 MG TAB PO SCH ×2 (08:26→21:21)
[2019-03-28] MEDS: levETIRAcetam 500 MG TAB PO SCH ×2 (08:27→21:20)
[2019-03-28] MEDS: ATENOLOL 50 MG TAB PO SCH ×2 (08:27→21:17)
[2019-03-28] MEDS: ENOXAPARIN 40 MG/0.4 ML SYRINGE SQ SCH (08:27)
[2019-03-28] MEDS: glipiZIDE 5 MG TAB PO SCH ×2 (08:27→21:20)
[2019-03-28] MEDS: IBUPROFEN 400 MG TAB PO SCH ×3 (08:28→16:24)
[2019-03-28] MEDS: carBAMazepine 300 MG CPMP.12HR PO SCH ×2 (08:28→21:17)
[2019-03-28 10:33] LABS: Basophils % (A) 0 %; Eosinophils # (A) 0.5 k/uL (0-0.7); Eosinophils % (A) 5 %; HCT 29.5 % (34.0-46.0); Lymphocytes # (A) 1.3 k/uL (1.0-4.8); Lymphocytes % (A) 15 %; MCH 29.4 pg (25.0-35.0); MCHC 33.5 g/dL (31.0-37.0); MCV 87.6 fL (80.0-100.0); Mean Platelet Volume 7.2; Monocytes # (A) 0.5 k/uL (0-1.0); Monocytes % (A) 6 %; Neutrophils # (A) 6.7 k/uL (1.3-7.7); Neutrophils % (A) 73 %; Platelet Count 261 k/uL (150-450); RBC 3.37 m/uL (3.80-5.40); RDW 14.5 % (11.5-15.5); WBC 9.2 k/uL (3.8-10.6)
[2019-03-28 10:35] LABS: HGB 9.9 gm/dL (11.4-16.0)
--- NOTE | 2019-03-28 10:57 | P.PN ---
Progress Note - Text The patient is a 64-year-old patient of Dr. Siegel. For whom I am covering. Patient presented yesterday with weakness and recurrent fevers at home. Related to underlying urinary tract infection and possible wound infection as patient has had a previous bilateral breasts surgeries approximately one week prior to admission. Patient has been on ceftriaxone and vancomycin. She states she feels better but is still somewhat weak and apparently was sweaty last evening. She has had some surgical area discomfort which she states is better this morning. Temperature is 97.1 with a pulse of 56 and respirations 18. Nonlabored. Blood pressure 133/63 and she is 96% saturated on room air. Lung and heart examination is clear. Abdomen is soft and nontender. No unusual distal edema. No new neurological changes. White count is down to 9.2 with a hemoglobin 9.9 and a platelet count of 261. Blood sugar was 142. Venous lactic acid level decreased down to 1.5. Culture of urine still pending. Impression and plans We will continue present antibiotics. We'll await further recommendations from surgery after their evaluation. Also awaiting culture results. But hopefully over the next 24-48 hrs. with continued improvement patient may likely be discharged to home on oral antibiotics with outpatient follow-up at that time. This has been discussed with patient and nursing staff this morning. New Dr. Siegel to resume care tomorrow morning.
--- NOTE | 2019-03-28 12:06 | P.GSCN ---
History of Present Illness Consult date: 03/28/19 History of present illness: CHIEF COMPLAINT: Left mastectomy with cellulitis HISTORY OF PRESENT ILLNESS: The patient is a 64 year old female status post mastectomy. She comes in with generalized weakness, fevers at home over 101, recent left mastectomy over 2 weeks ago with redness along the left chest and cloudy MAUREEN output. She had decreased appetite. She has been started on vancomycin and her WBC now improved. She had moderated dehydration. She feels better today. She still reports low appetite from her infection PAST MEDICAL HISTORY: See list. PAST SURGICAL HISTORY: See list. MEDICATIONS: See list. ALLERGIES: See list. SOCIAL HISTORY: See list. FAMILY HISTORY: See list. REVIEW OF ORGAN SYSTEMS: CONSTITUTIONAL: No fevers or chills. No recent weight loss. EYES: Denies any trouble with vision. No glasses. HEENT: No difficulties with hearing. No nosebleeds. No difficulty swallowing. RESPIRATORY: Denies pneumonia. Denies any troubles with breathing or dyspnea on exertion. CARDIOVASCULAR: Denies any chest pain, palpitations, or recent heart attacks. GASTROINTESTINAL: Denies fatty food intolerance. Denies change in bowel habits and gas bloat. GENITOURINARY: Has urinary tract infection. NEUROLOGICAL: Denies any numbness or tingling along the distal extremities. Has seizure disorders. MUSCULOSKELETAL: Has back pain, stiffness or joint arthritis. SKIN: No current skin cancer. No rash. PSYCHIATRIC: Has depression or suicidal thoughts. ENDOCRINE: Denies current thyroid disorders. Has blood sugar glucose intolerance. HEME/LYMPHATIC: Denies any lumps and bumps around the neck. ALLERGY/IMMUNOLOGY: No immunoglobulin therapy. No immune deficiencies. BREAST: History of breast cancer and recent left mastectomy. PHYSICAL EXAM: VITALS: Reviewed CONSTITUTIONAL: Well developed and in no acute distress. EYES: Conjuctivae without sclera icterus. Pupils are equally round and reactive to light. Extraocular movements grossly intact. HEAD, EARS, NOSE, THROAT: Moist buccal mucosa. Head is atraumatic, normocephalic. Hears conversational speech. No nasal drainage. NECK: Supple. No JV distention. No thyroidomegaly. RESPIRATORY: Non-labored respirations and equal bilateral excursions. No gross wheezes. CHEST: Binder along chest present. Mild erythema along left chest. MAUREEN is serous but cloudy. CARDIOVASCULAR: Regular rate and rhythm. Extremities without moderate edema. Palpable 2+ radial pulses. ABDOMEN: No hepatomegaly. Soft. Non-tender. Nondistended. LYMPH: No neck lymphadenopathy. No axillary lymphadenopathy. MUSCULOSKELETAL: Nail and fingers with good capillary refill. SKIN: Warm and well perfused with good skin turgor. NEUROLOGIC: Cranial nerves I through XII grossly intact. Sensation upper and extremities intact. No focal or lateralizing signs. PSYCH: Appropriate affect. Alert and oriented to person, place and time. Displays appropriate insight. CLINCAL LABS: Reviewed. LABS: Urinalysis with moderate leukocytes. WBC on admission over 15,000 now normal. ASSESSMENT: 1. Left chest wall cellulitis s/p mastectomy 2. Urinary tract infection 3. Leukocytosis with fever PLAN: 1. Continue with IV antibiotics for complicated infection 2. IV fluid hydration 3. Recommend evaluation by her surgeon Dr. Chen for which she had an appointment with tomorrow. 4. No surgical intervention needed at this time. Thank you for this kind consultation. Past Medical History Past Medical History: Cancer, CVA/TIA, Diabetes Mellitus, Hyperlipidemia, Hypertension, Osteoarthritis (OA), Pneumonia, Seizure Disorder Additional Past Medical History / Comment(s): chronic diarrhea, breast/colon/ovarian,uterine CA, no bp in rt arm. told she had a stroke 03/2014 "blood clot in back of head". hx of head injury 3rd grade, pt states she has "sl ow thinking process"and seizures started after injury. -last seizure >5 years ago, hx back pain. brain aneurysm 2007,menieres disease, just put on amlodipine about a week ago for BP History of Any Multi-Drug Resistant Organisms: None Reported Past Surgical History: Adenoidectomy, Appendectomy, Bladder Surgery, Bowel Resection, Breast Surgery, Section, Cholecystectomy, Hernia Repair, Hysterectomy, Orthopedic Surgery, Tonsillectomy Additional Past Surgical History / Comment(s): rt mastectomy 15 yrs. ago, manpreet BREAST BX, MANPREET CATARACT SX, BLADDER SUSPENSION, bowel resection x2 d/t ca. L mastectomy. left mastectomy 02/2019 Past Anesthesia/Blood Transfusion Reactions: Postoperative Nausea & Vomiting (PONV) Past Psychological History: Depression Additional Psychological History / Comment(s): . Smoking Status: Never smoker Past Alcohol Use History: None Reported Past Drug Use History: None Reported - Past Family History Mother Family Medical History: Cancer Father Family Medical History: Cancer Medications and Allergies Home Medications Medication Instructions Recorded Confirmed Type carBAMazepine [Carbatrol] 600 mg PO BID 12/16/13 03/27/19 History glipiZIDE [Glucotrol] 5 mg PO BID 12/16/13 03/27/19 History hydrALAZINE HCL [Apresoline] 50 mg PO TID 12/16/13 03/27/19 History levETIRAcetam [Keppra] 1,000 mg PO BID 12/16/13 03/27/19 History Aspirin 325 mg PO HS 04/21/14 03/27/19 History Atorvastatin [Lipitor] 20 mg PO QAM 04/21/14 03/27/19 History Topiramate 100 mg PO HS 04/21/14 03/27/19 History Enalapril [Vasotec] 10 mg PO BID 07/08/17 03/27/19 History metFORMIN HCL [Glucophage] 500 mg PO BID 07/08/17 03/27/19 History Sertraline [Zoloft] 100 mg PO DAILY 12/16/18 03/27/19 History amLODIPine [Norvasc] 5 mg PO BID@1200,2200 03/05/19 03/27/19 History Atenolol [Tenormin] 50 mg PO BID 03/27/19 03/27/19 History Allergies Allergy/AdvReac Type Severity Reaction Status Date / Time No Known Allergies Allergy Verified 03/27/19 11:45 Surgical - Exam Vital Signs Temp Pulse Resp BP Pulse Ox 99.5 F 88 18 95/56 98 03/27/19 11:11 03/27/19 11:11 03/27/19 11:11 03/27/19 11:11 03/27/19 11:11 Results - Labs 03/28/19 10:07 03/27/19 12:00 Abnormal Lab Results - Last 24 Hours (Table) 03/27/19 03/27/19 03/27/19 Range/Units 12:00 12:00 12:00 WBC 17.5 H (3.8-10.6) k/uL RBC (3.80-5.40) m/uL Hgb (11.4-16.0) gm/dL Hct (34.0-46.0) % RDW 15.8 H (11.5-15.5) % Neutrophils # 13.7 H (1.3-7.7) k/uL Glucose 165 H (74-99) mg/dL POC Glucose (mg/dL) (75-99) mg/dL Plasma Lactic Acid Miles 2.1 H* (0.7-2.0) mmol/L Magnesium 1.5 L (1.6-2.3) mg/dL Creatine Kinase 386 H (30-135) U/L Urine Appearance (Clear) Urine Protein (Negative) Ur Leukocyte Esterase (Negative) Urine RBC (0-5) /hpf Urine WBC (0-5) /hpf Ur Squamous Epith Cells (0-4) /hpf Amorphous Sediment (None) /hpf Urine Bacteria (None) /hpf Hyaline Casts (0-2) /lpf Urine Mucus (None) /hpf 03/27/19 03/27/19 03/27/19 Range/Units 12:00 21:13 22:40 WBC (3.8-10.6) k/uL RBC (3.80-5.40) m/uL Hgb (11.4-16.0) gm/dL Hct (34.0-46.0) % RDW (11.5-15.5) % Neutrophils # (1.3-7.7) k/uL Glucose (74-99) mg/dL POC Glucose (mg/dL) 200 H 137 H (75-99) mg/dL Plasma Lactic Acid Miles (0.7-2.0) mmol/L Magnesium (1.6-2.3) mg/dL Creatine Kinase (30-135) U/L Urine Appearance Cloudy H (Clear) Urine Protein 1+ H (Negative) Ur Leukocyte Esterase Large H (Negative) Urine RBC 7 H (0-5) /hpf Urine WBC 57 H (0-5) /hpf Ur Squamous Epith Cells 7 H (0-4) /hpf Amorphous Sediment Rare H (None) /hpf Urine Bacteria Occasional H (None) /hpf Hyaline Casts 13 H (0-2) /lpf Urine Mucus Occasional H (None) /hpf 03/28/19 03/28/19 Range/Units 07:15 10:07 WBC (3.8-10.6) k/uL RBC 3.37 L (3.80-5.40) m/uL Hgb 9.9 L D (11.4-16.0) gm/dL Hct 29.5 L (34.0-46.0) % RDW (11.5-15.5) % Neutrophils # (1.3-7.7) k/uL Glucose (74-99) mg/dL POC Glucose (mg/dL) 142 H (75-99) mg/dL Plasma Lactic Acid Miles (0.7-2.0) mmol/L Magnesium (1.6-2.3) mg/dL Creatine Kinase (30-135) U/L Urine Appearance (Clear) Urine Protein (Negative) Ur Leukocyte Esterase (Negative) Urine RBC (0-5) /hpf Urine WBC (0-5) /hpf Ur Squamous Epith Cells (0-4) /hpf Amorphous Sediment (None) /hpf Urine Bacteria (None) /hpf Hyaline Casts (0-2) /lpf Urine Mucus (None) /hpf Microbiology - Last 24 Hours (Table) 03/27/19 12:00 Urine Culture - Preliminary Urine,Voided Diabetes panel 03/27/19 Range/Units 12:00 Sodium 138 (137-145) mmol/L Potassium 3.7 (3.5-5.1) mmol/L Chloride 102 (98-107) mmol/L Carbon Dioxide 23 (22-30) mmol/L BUN 17 (7-17) mg/dL Creatinine 0.83 (0.52-1.04) mg/dL Glucose 165 H (74-99) mg/dL Calcium 8.8 (8.4-10.2) mg/dL AST 30 (14-36) U/L ALT 24 (9-52) U/L Alkaline Phosphatase 121 (38-126) U/L Total Protein 6.5 (6.3-8.2) g/dL Albumin 3.9 (3.5-5.0) g/dL Calcium panel 03/27/19 Range/Units 12:00 Calcium 8.8 (8.4-10.2) mg/dL Phosphorus 2.9 (2.5-4.5) mg/dL Albumin 3.9 (3.5-5.0) g/dL Pituitary panel 03/27/19 Range/Units 12:00 Sodium 138 (137-145) mmol/L Potassium 3.7 (3.5-5.1) mmol/L Chloride 102 (98-107) mmol/L Carbon Dioxide 23 (22-30) mmol/L BUN 17 (7-17) mg/dL Creatinine 0.83 (0.52-1.04) mg/dL Glucose 165 H (74-99) mg/dL Calcium 8.8 (8.4-10.2) mg/dL Adrenal panel 03/27/19 Range/Units 12:00 Sodium 138 (137-145) mmol/L Potassium 3.7 (3.5-5.1) mmol/L Chloride 102 (98-107) mmol/L Carbon Dioxide 23 (22-30) mmol/L BUN 17 (7-17) mg/dL Creatinine 0.83 (0.52-1.04) mg/dL Glucose 165 H (74-99) mg/dL Calcium 8.8 (8.4-10.2) mg/dL Total Bilirubin 0.7 (0.2-1.3) mg/dL AST 30 (14-36) U/L ALT 24 (9-52) U/L Alkaline Phosphatase 121 (38-126) U/L Total Protein 6.5 (6.3-8.2) g/dL Albumin 3.9 (3.5-5.0) g/dL Assessment and Plan (1) Leukocytosis Current Visit: Yes Status: Acute Code(s): D72.829 - ELEVATED WHITE BLOOD CELL COUNT, UNSPECIFIED SNOMED Code(s): 338702692 (2) Cellulitis of chest wall Current Visit: Yes Status: Acute Code(s): L03.313 - CELLULITIS OF CHEST WALL SNOMED Code(s): 42256582 (3) H/O mastectomy Current Visit: Yes Status: Acute Code(s): Z90.10 - ACQUIRED ABSENCE OF UNSPECIFIED BREAST AND NIPPLE SNOMED Code(s): 998419480 (4) Dehydration Current Visit: Yes Status: Acute Code(s): E86.0 - DEHYDRATION SNOMED Code(s): 54690534 (5) Fever Current Visit: Yes Status: Acute Code(s): R50.9 - FEVER, UNSPECIFIED SNOMED Code(s): 694066465 (6) UTI (urinary tract infection) Current Visit: Yes Status: Acute Code(s): N39.0 - URINARY TRACT INFECTION, SITE NOT SPECIFIED SNOMED Code(s): 73943455
[2019-03-28] MEDS: amLODIPine 5 MG TAB PO SCH ×2 (12:11→21:22)
[2019-03-28] MEDS: HYDROcodone/APAP 5-325MG 1 EACH TAB PO PRN ×2 (13:14→21:23)
[2019-03-28 17:16] LABS: Glucose,Whole Blood 122 mg/dL (75-99)
[2019-03-28] MEDS: ASPIRIN 325 MG TAB PO SCH (21:16)
[2019-03-28] MEDS: TEMAZEPAM 7.5 MG CAP PO PRN (21:21)
[2019-03-28] MEDS: TOPIRAMATE 100 MG TAB PO SCH (21:22)
[2019-03-29] MEDS: HYDROcodone/APAP 5-325MG 1 EACH TAB PO PRN ×2 (01:25→20:38)
[2019-03-29 07:10] LABS: Glucose,Whole Blood 114 mg/dL (75-99)
[2019-03-29] MEDS: levETIRAcetam 500 MG TAB PO SCH ×2 (09:06→20:38)
[2019-03-29] MEDS: LISINOPRIL 20 MG TAB PO SCH (09:06)
[2019-03-29] MEDS: IBUPROFEN 400 MG TAB PO SCH ×3 (09:07→17:19)
[2019-03-29] MEDS: ATENOLOL 50 MG TAB PO SCH ×2 (09:07→20:39)
[2019-03-29] MEDS: ATORVASTATIN 20 MG TAB PO SCH (09:07)
[2019-03-29] MEDS: ENOXAPARIN 40 MG/0.4 ML SYRINGE SQ SCH (09:07)
[2019-03-29] MEDS: hydrALAZINE HCL 50 MG TAB PO SCH ×3 (09:07→20:38)
[2019-03-29] MEDS: SERTRALINE 100 MG TAB PO SCH (09:07)
[2019-03-29] MEDS: metFORMIN 500 MG TAB PO SCH (09:07)
[2019-03-29] MEDS: carBAMazepine 300 MG CPMP.12HR PO SCH ×2 (09:08→20:37)
[2019-03-29] MEDS: glipiZIDE 5 MG TAB PO SCH ×2 (09:08→20:37)
[2019-03-29 09:26] LABS: African American GFR (CKD) >90 (>60 ml/min/1.73 sqM); Anion Gap 12 mmol/L; Blood Urea Nitrogen 14 mg/dL (7-17); Calcium 8.4 mg/dL (8.4-10.2); Carbon Dioxide 21 mmol/L (22-30); Chloride 108 mmol/L (98-107); Glucose 216 mg/dL (74-99); Non-African American GFR(CKD) >90 (>60 ml/min/1.73 sqM); Potassium 3.9 mmol/L (3.5-5.1); Sodium 141 mmol/L (137-145)
[2019-03-29 09:38] LABS: Basophils % (A) 1 %; Eosinophils # (A) 0.7 k/uL (0-0.7); Eosinophils % (A) 9 %; HCT 31.5 % (34.0-46.0); HGB 10.3 gm/dL (11.4-16.0); Lymphocytes # (A) 1.7 k/uL (1.0-4.8); Lymphocytes % (A) 21 %; MCHC 32.6 g/dL (31.0-37.0); MCV 89.2 fL (80.0-100.0); Mean Platelet Volume 7.5; Monocytes # (A) 0.4 k/uL (0-1.0); Monocytes % (A) 5 %; Neutrophils # (A) 5.1 k/uL (1.3-7.7); Neutrophils % (A) 63 %; Platelet Count 307 k/uL (150-450); RBC 3.54 m/uL (3.80-5.40); RDW 14.9 % (11.5-15.5)
--- NOTE | 2019-03-29 10:27 | P.PN ---
Subjective Progress Note Date: 03/29/19 Principal diagnosis: Left breast mastectomy with sentinel node biopsy, right breast Revision of chest wall incision, recent admission with probable urinary tract infection The patient is a 64-year-old white female status post left breast mastectomy and right chest wall revision of prior mastectomy incision. The patient was seen on 8818 in the office and was noted to be doing well at that time. She subsequently states at home she noted that she had increasing fevers and began to feel week. She presented to the hospital. Laboratory studies revealed a white count of 17.5 and the urine sample showed leukocyte esterase large amount. Cultures have shown Proteus mirabilis in the urine. Her blood cultures are negative. She was admitted to the hospital with probable urinary tract infection. She also states that the area of the left mastectomy site became questionably erythematous, however she states she cannot see it well. Her MAUREEN output had some cloudy appearance. At this time she is afebrile. She is feeling better. She has had vancomycin and ceftriaxone. Family history: 1. Mother: Breast cancer, leukemia 2. Daughter colon cancer at 16 of the breast 3. Father: Kidney cancer, bladder cancer, colon cancer, prostate cancer 4. Maternal aunt: Breast cancer 5. Paternal uncles, 9 with cancers including bleeding, stomach, colon, bladder, prostate 6. Maternal aunt: Breast cancer Past surgical history: 1. Bilateral mastectomies 2. Cholecystectomy 3. Hysterectomy 4. Appendectomy 5. Tonsils and adenoids 6. Bladder suspension 7. Hernia 8. 2 C-sections 9. Brain aneurysm 10., The scalp Medical history: 1. Hypertension 2. Seizures 2. Diabetes 4. Arthritis 5. Multiple cancers; including breast, colon, ovarian, and uterine the patient Social history: Smoke: Negative Alcohol: NegativeNeurologic: Seizures Psychiatric: Depression/anxiety Endocrine: Diabetes Hematologic: Uses baby aspirin Drugs: Negative Review of systems: Constitutional: Recent fevers now subsided HEENT: Poor dentition Breasts: As per HPI Cardiovascular: Hypertension Respiratory: Negative GI: History of diarrhea and colon cancer : History of hysterectomy Musculoskeletal: Arthritis Objective - Vital Signs Vital signs: Vital Signs Temp 98.1 F 03/29/19 05:00 Pulse 72 03/29/19 09:05 Resp 16 03/29/19 05:00 BP 112/54 03/29/19 05:00 Pulse Ox 98 03/29/19 05:00 Intake & Output 03/28/19 03/29/19 03/29/19 18:59 06:59 18:59 Intake Total 300 1770 Output Total 40 Balance 260 1770 Intake: Intake, IV Titration 300 Amount Vancomycin 1,500 mg In 250 Sodium Chloride 0.9% 250 ml @ 125 mls/hr IVPB Q16H YESI Rx#:[id number] cefTRIAXone 1 gm In 50 Sodium Chloride 0.9% 50 ml @ 100 mls/hr IVPB Q24HR YESI Rx#:[id number] Oral 1770 Output: Drainage 40 left chest 40 Other: Voiding Method Toilet Toilet Diaper Diaper Incontinent Incontinent # Voids 1 3 - Exam BMI 34.4 - Constitutional General appearance: Present: obese - EENT Eyes: Present: poor dentition ENT: Present: hearing grossly normal - Neck Neck: Present: normal ROM - Respiratory Respiratory: bilateral: CTA - Cardiovascular Rhythm: regular Heart sounds: normal: S1, S2 - Gastrointestinal General gastrointestinal: Present: soft - Integumentary Integumentary: Present: normal turgor - Psychiatric Psychiatric: Present: A&O x's 3, appropriate affect, intact judgment & insight - Additional findings Additional findings: Right chest wall incision: Clean and dry no evidence of seroma or infection Left chest wall incision: No evidence of cellulitis or infection at this time there is a small seroma in the axillary area MAUREEN drain with some particulate matter does not appear to be infected; drainage is serous in nature the drain was emptied for 50 mL; drain left in place at this time - Labs CBC & Chem 7: 03/29/19 08:24 03/29/19 08:24 Labs: Abnormal Lab Results - Last 24 Hours (Table) 03/28/19 03/28/19 03/29/19 Range/Units 10:07 17:14 07:09 RBC 3.37 L (3.80-5.40) m/uL Hgb 9.9 L D (11.4-16.0) gm/dL Hct 29.5 L (34.0-46.0) % Chloride (98-107) mmol/L Carbon Dioxide (22-30) mmol/L Glucose (74-99) mg/dL POC Glucose (mg/dL) 122 H 114 H (75-99) mg/dL 03/29/19 03/29/19 Range/Units 08:24 08:24 RBC 3.54 L (3.80-5.40) m/uL Hgb 10.3 L (11.4-16.0) gm/dL Hct 31.5 L (34.0-46.0) % Chloride 108 H (98-107) mmol/L Carbon Dioxide 21 L (22-30) mmol/L Glucose 216 H (74-99) mg/dL POC Glucose (mg/dL) (75-99) mg/dL Microbiology - Last 24 Hours (Table) 03/27/19 12:00 Urine Culture - Final Urine,Voided Proteus mirabilis 03/27/19 12:00 Blood Culture - Preliminary Blood No Growth after 24 hours Assessment and Plan Assessment: Impression: 1. Status post left breast mastectomy and sentinel node biopsy, right breast ReVision of scar 2. Recent admission with fever and leukocytosis probable urinary tract infection 3. No definite cellulitis at this time of the left chest wall 4. Small seroma present MAUREEN drain left in place 5. Diabetes 6. Hypertension 7. History of seizures 8. Obesity 9. Resolved leukocytosis Plan: 1. Antibiotics as per Dr. Siegel 2. Continue present drain care 3. Medical management of medical conditions 4. At the present time there is no need for any surgical intervention, there is no definite cellulitis or infection of the mastectomy site CC: Dr. Siegel
[2019-03-29] MEDS ORDERED: INSULIN ASPART (NovoLOG) 100 UNIT/ML VIAL SQ SCH (12:30)
[2019-03-29] MEDS: INSULIN ASPART (NovoLOG) 100 UNIT/ML VIAL SQ SCH ×2 (13:08→17:21)
[2019-03-29] MEDS: amLODIPine 5 MG TAB PO SCH ×2 (13:11→20:38)
[2019-03-29] MEDS: VANCOMYCIN 1,500 MG in SODIUM CHLORIDE 0.9% 250 ML IVPB SCH (13:11)
[2019-03-29 17:22] LABS: Glucose,Whole Blood 147 mg/dL (75-99)
[2019-03-29] MEDS: CIPROFLOXACIN HCL 500 MG TAB PO SCH (17:40)
--- NOTE | 2019-03-29 18:08 | PN ---
PROGRESS NOTE DATA: Her height is 5 feet 2 inches. Weight 85.275 kg. BSA 1.86 m2. BMI 34.4 kg/m2. NO KNOWN ALLERGY. DATE OF SERVICE: 03/29/2019 This patient has been seen and evaluated by Dr. Shirley Chen for her previous incision and drainage. She is indicating that there is no erythema or infection in the incision. I also evaluated the incision with her. There are Steri-Strips, but no evidence of infection. Her fever, chills and temperature were mainly from the urinary tract infection. She has underlying EKG normal sinus rhythm with low voltage, with questionable history of anterior infarction, but the patient did not have any acute abnormalities. The patient also has a history of hypertension with hypertensive heart disease and history of recent mastectomy because of the presence of underlying cancer. Dr. Shirley Chen's notes are on the chart. With the underlying past history of bilateral mastectomy, the recent one was the left breast. She has history of cholecystectomy, hysterectomy, appendectomy and tonsillectomy with adenoidectomy. FAMILY HISTORY: Mother with breast cancer with leukemia. Daughter has colon cancer at 16. Father has kidney cancer and bladder cancer, colon cancer, prostate cancer. Maternal aunt has breast cancer. She had a paternal uncle with cancers including bleeding and stomach and colon, bladder and prostate. Maternal aunt has breast cancer. Her urine culture was indicating Proteus mirabilis. Currently we changed the antibiotic to Cipro, which has better sensitivity than Rocephin. She was admitted with fever and leukocytosis, which have completely resolved. The patient has also a history of bladder suspension, hernia, 2 sections, brain aneurysm, history of hypertension, seizure, diabetes, arthritis and multiple cancers. No history of smoking in the past. No alcohol. She has history of depression, anxiety, diabetes, and uses baby aspirin. She has poor dentition. The current impression of Dr. Shirley Brown is left breast mastectomy with sentinel node biopsy and right breast revision of the scar, recent admission with fever and leukocytosis, probably urinary tract infection. No definite cellulitis of the chest wall. Small MAUREEN drainage, history of diabetes, hypertension, history of seizure, obesity and resolving leukocytosis. The patient will be seeing her as outpatient. We will be changing the antibiotic and we are going to ambulate the patient. The patient was admitted to the hospital by Dr. Ramirez, who was automotive production worker, and subsequently he did the history and physical as well. Today is the first day of service. On seeing the patient, she has stable vital signs. Temperature 98.6 orally Fahrenheit, pulse rate 61, respiratory rate 16, and blood pressure was 158/69 with a mean of 98, not well controlled. Her pulse ox 98% on room air. LABORATORY: On admission on 03/27/2019, her white count was 17.5 and hemoglobin 12, hematocrit 36.9. Her sugar was 65 and POC glucose was 200, 137, and I did place her on insulin to scale. Her lactic acid on admission was elevated at 2.1; however, that subsequently dropped down to 1.5. At her admission her magnesium was 1.5 and phosphorus 2.9, calcium 8.8. We will be planning for obtaining serum magnesium tomorrow. Her creatine kinase was 386; and with the mild elevation of the elevation to 386, probably the patient has underlying muscle factor or falling; however, she denied that. Her troponin I was normal with 0.012 and the B-natriuretic peptide was 272 on admission. On admission, she was found also to have WBC 57 and RBC 7, and she had significant bacteria and hyaline casts. She was found subsequently by the culture that she has Proteus mirabilis, better sensitivity to Cipro, and the patient was started today on Cipro orally. The patient was seen and evaluated. Patient was conscious, alert, oriented and able to communicate freely. Dr. Gricel Chen and I examined her at the same time. She is in stable general condition except for that event that caused her to have the leukocytosis as well. PHYSICAL EXAMINATION: HEENT: The head was normocephalic, atraumatic. Pupils equal, reactive. She had xanthelasma skin lesions bilaterally on the upper eyelids. She had poor dental hygiene and dental caries. The neck was supple. No lymphadenopathy and no thyromegaly. The chest was clear to auscultation and percussion. The patient had a chest x-ray on admission that showed that her heart is prominent, but the lungs are clear, and only cardiomegaly. No chest pain. The chest was wrapped with a brace with compression for the right breast revision for the scar and the left breast is the mastectomy done by Dr. Gricel Chen. The abdomen was soft. Positive bowel sounds. EXTREMITIES: No edema. Positive pulses. ASSESSMENT: 1. Urinary tract infection with underlying possible sepsis with elevated lactic acid, which returned after hydration and dropped to normal. 2. Leukocytosis secondary to the sepsis with 17,000 which dropped to normal currently. The dressing was changed by Dr. Gricel Chen, the surgeon. 3. Underlying other associated diabetes mellitus, for which we started insulin subcutaneously according to scale. 4. Meanwhile, we are continuing her current medication for controlling hypertension. She is taking amlodipine twice a day as well as aspirin and atenolol, atorvastatin, carbamazepine and currently Cipro 500 mg twice a day, as it has better sensitivity, less than 1, than the ceftriaxone. She is still on the glipizide as well as the hydralazine and she is on insulin to scale. 5. She is on seizure medication with Keppra as well. 6. She is on lisinopril and metformin. We are going to hold on the metformin for now, with the underlying history of lactic acid abnormalities. 7. The patient will be ambulated as tolerated and hopefully, if she is stable tomorrow, she will be planned for discharge. MMODL / IJN: [id number] /
[2019-03-29 18:31] LABS: Glucose,Whole Blood 192 mg/dL (75-99)
[2019-03-29 20:32] LABS: Glucose,Whole Blood 202 mg/dL (75-99)
[2019-03-29] MEDS: ASPIRIN 325 MG TAB PO SCH (20:38)
[2019-03-29] MEDS: TOPIRAMATE 100 MG TAB PO SCH (20:38)
[2019-03-29] MEDS: TEMAZEPAM 7.5 MG CAP PO PRN (20:39)
[2019-03-30] MEDS ORDERED: VANCOMYCIN TROUGH DUE 1 EACH MISC MISCELLANE ONE (05:00)
[2019-03-30] MEDS: VANCOMYCIN 1,500 MG in SODIUM CHLORIDE 0.9% 250 ML IVPB SCH (05:44)
[2019-03-30 06:04] LABS: Basophils # (A) 0.1 k/uL (0-0.2); Basophils % (A) 1 %; Eosinophils # (A) 0.6 k/uL (0-0.7); Eosinophils % (A) 9 %; HCT 32.1 % (34.0-46.0); HGB 10.2 gm/dL (11.4-16.0); Lymphocytes # (A) 2.4 k/uL (1.0-4.8); Lymphocytes % (A) 35 %; MCH 28.4 pg (25.0-35.0); MCV 88.8 fL (80.0-100.0); Mean Platelet Volume 7.6; Monocytes # (A) 0.5 k/uL (0-1.0); Monocytes % (A) 7 %; Neutrophils # (A) 3.3 k/uL (1.3-7.7); Neutrophils % (A) 47 %; Platelet Count 393 k/uL (150-450); RBC 3.61 m/uL (3.80-5.40); RDW 14.2 % (11.5-15.5); WBC 6.9 k/uL (3.8-10.6)
[2019-03-30 06:15] LABS: African American GFR (CKD) >90 (>60 ml/min/1.73 sqM); Anion Gap 10 mmol/L; Blood Urea Nitrogen 13 mg/dL (7-17); Calcium 8.3 mg/dL (8.4-10.2); Carbon Dioxide 23 mmol/L (22-30); Chloride 108 mmol/L (98-107); Glucose 116 mg/dL (74-99); Non-African American GFR(CKD) >90 (>60 ml/min/1.73 sqM); Potassium 4.1 mmol/L (3.5-5.1); Sodium 141 mmol/L (137-145)
[2019-03-30 07:23] LABS: Glucose,Whole Blood 140 mg/dL (75-99)
[2019-03-30] MEDS: INSULIN ASPART (NovoLOG) 100 UNIT/ML VIAL SQ SCH ×2 (07:50→11:28)
[2019-03-30] MEDS: ATORVASTATIN 20 MG TAB PO SCH (08:01)
[2019-03-30] MEDS: hydrALAZINE HCL 50 MG TAB PO SCH (08:01)
[2019-03-30] MEDS: ATENOLOL 50 MG TAB PO SCH (08:01)
[2019-03-30] MEDS: SERTRALINE 100 MG TAB PO SCH (08:01)
[2019-03-30] MEDS: LISINOPRIL 20 MG TAB PO SCH (08:01)
[2019-03-30] MEDS: IBUPROFEN 400 MG TAB PO SCH ×2 (08:01→11:34)
[2019-03-30] MEDS: carBAMazepine 300 MG CPMP.12HR PO SCH (08:02)
[2019-03-30] MEDS: CIPROFLOXACIN HCL 500 MG TAB PO SCH (08:02)
[2019-03-30] MEDS: levETIRAcetam 500 MG TAB PO SCH (08:02)
[2019-03-30] MEDS: ENOXAPARIN 40 MG/0.4 ML SYRINGE SQ SCH (08:02)
[2019-03-30] MEDS: glipiZIDE 5 MG TAB PO SCH (08:03)
[2019-03-30 11:24] LABS: Glucose,Whole Blood 144 mg/dL (75-99)
[2019-03-30] MEDS: amLODIPine 5 MG TAB PO SCH (11:34)
--- NOTE | 2019-03-30 12:53 | P.DS ---
Providers Date of admission: 03/29/19 08:38 Expected date of discharge: 03/30/19 (UTI with sepsis) Attending physician: Flynn Siegel Consults: 03/28/19 12:07 Consult Physician Routine Consulting Provider: Mariia Chen Consult Reason/Comments: Post surgical mastectomy with cellulitis Do you want consulting provider notified?: Yes, Notify in am Primary care physician: Flynn Siegel Discharge summary date of service 03/30/[address] Siegel. Final Final diagnosis: #1 Proteus mirabilis UTI with possible sepsis with a history of leukocytosis and fever or chills on admission. #2 status post left breast mastectomy, right breast revision of the scar by Dr. Gricel Guzman. No evidence of infection. #3 mild elevation of creatinine kinase etiology unclear. #4 lactic acid elevation on admission result. Patient is diabetic and she is on metformin has been discontinued. #5 anemia normocytic hypochromic was complex with normal iron study. #6 hypertension with hypertensive heart disease. #7 seizure disorder. #8 and anxiety and depression. Patient initially admitted through the emergency room 64 years old white female presented to the emergency room not feeling well severe dizziness lightheadedness and at that time they stated no recent fever and she had history of mastectomy of the left breast as well as right breast scar revision there is no cough and no nausea or vomiting or diarrhea they did laboratory and indicating that the white count was 17.5 and the hemoglobin 12, hematocrit 36.9 and platelet count 373 her blood sugar was 165 with the sodium 138, potassium 3.7, chloride 108, and carbon dioxide 23, her BUN was 17, creatinine 0.83 found also creatinine kinase 386. With the normal d-dimer is and the the INR 1 and pro time 10.6. Patient had lactic acid at that time 2.1 with the beta natruretic peptide 272 and troponin was less than 0.12. Patient admitted to the hospital and subsequently the results of the urine analysis the urine and was large leukocyte esterase RBCs 7 WBC 57. And 1+ protein and cloudy and presence of hyaline cast, as admitted with dehydration fever UTI. Patient culture indicating Proteus mirabilis at that time the antibiotic changes to the best sensitivity with Cipro. Patient did well ambulatory stable general condition. Hospital course: Patient ambulated and did well with the antibiotic stable general condition to be discharged home to follow-up with Dr. Horace Guzman as outpatient next week and to be seen in the office this week. Exam today on discharge Temperature 97.4 F oral her heart rate 64/m respiratory rate 20/m nonlabored and room air 98%. Her blood pressure fluctuating between 138/76 and 151/65. Head was normocephalic atraumatic, pupil was equal reactive, neck was supple no JVD no thyromegaly no lymphadenopathy trachea midline. The chest was clear to auscultation and percussion no wheezes no rhonchi's normal breath sound. Heart was regular sinus rhythm. No chest pain no arrhythmias. Abdomen soft positive bowel sounds no organ enlargement. Extremities no edema and positive pulses. Neurologically stable 0.4 extremities no lateralizing sign. Assessment stable general condition for discharge to be followed by Dr. Monty Brown next week in her office. Also follow-up this week or next week with my office for continuing care. Prescription for Cipro 500 mg twice a day for 5 days. Continue the current medication. Patient will be discharged with visiting nurse for follow-up. Patient Condition at Discharge: Good Plan - Discharge Summary Discharge Rx Participant: No New Discharge Prescriptions: New Ciprofloxacin HCl [Cipro] 500 mg PO BID #10 tab Continue levETIRAcetam [Keppra] 1,000 mg PO BID hydrALAZINE HCL [Apresoline] 50 mg PO TID glipiZIDE [Glucotrol] 5 mg PO BID carBAMazepine [Carbatrol] 600 mg PO BID Atorvastatin [Lipitor] 20 mg PO QAM Aspirin 325 mg PO HS Topiramate 100 mg PO HS Enalapril [Vasotec] 10 mg PO BID Sertraline [Zoloft] 100 mg PO DAILY amLODIPine [Norvasc] 5 mg PO BID@1200,2200 Atenolol [Tenormin] 50 mg PO BID Discontinued metFORMIN HCL [Glucophage] 500 mg PO BID Discharge Medication List carBAMazepine [Carbatrol] 600 mg PO BID 12/16/13 [History] glipiZIDE [Glucotrol] 5 mg PO BID 12/16/13 [History] hydrALAZINE HCL [Apresoline] 50 mg PO TID 12/16/13 [History] levETIRAcetam [Keppra] 1,000 mg PO BID 12/16/13 [History] Aspirin 325 mg PO HS 04/21/14 [History] Atorvastatin [Lipitor] 20 mg PO QAM 04/21/14 [History] Topiramate 100 mg PO HS 04/21/14 [History] Enalapril [Vasotec] 10 mg PO BID 07/08/17 [History] Sertraline [Zoloft] 100 mg PO DAILY 12/16/18 [History] amLODIPine [Norvasc] 5 mg PO BID@1200,2200 03/05/19 [History] Atenolol [Tenormin] 50 mg PO BID 03/27/19 [History] Ciprofloxacin HCl [Cipro] 500 mg PO BID #10 tab 03/30/19 [Rx] Follow up Appointment(s)/Referral(s): [facility], [NON-STAFF] - 1 Week Flynn Siegel MD [Primary Care Provider] - 1-2 days Patient Instructions/Handouts: Dehydration (DC), Urinary Tract Infection in Women (DC), Fever in Adults (ED), Leukocytosis (DC)
[2019-03-30 13:11] VITALS: BP 158/85; PULSE 57; RESP 16; TEMP 98.1
== END 2019-03-30 14:05 | disposition home health service (06) | DRG 872 ==
LOC: EC 11:05 → 3NMEDONC 13:23 → OBSVTOIN 03-29 08:38
PROVIDERS: ADMIT Internal Medicine; ATTEND Internal Medicine
DX: A41.9 Sepsis, unspecified organism (principal); N39.0 Urinary tract infection, site not specified; M96.843 Postprocedural seroma of a musculoskeletal structure following other procedure; L03.313 Cellulitis of chest wall; B96.4 Proteus (mirabilis) (morganii) as the cause of diseases classified elsewhere; I11.9 Hypertensive heart disease without heart failure; C50.912 Malignant neoplasm of unspecified site of left female breast; E86.0 Dehydration; E11.9 Type 2 diabetes mellitus without complications; D64.9 Anemia, unspecified; E78.5 Hyperlipidemia, unspecified; G40.909 Epilepsy, unspecified, not intractable, without status epilepticus; K52.9 Noninfective gastroenteritis and colitis, unspecified; M19.90 Unspecified osteoarthritis, unspecified site; F32.9 Major depressive disorder, single episode, unspecified; F41.9 Anxiety disorder, unspecified; E66.9 Obesity, unspecified; Z68.34 Body mass index [BMI] 34.0-34.9, adult; Z79.82 Long term (current) use of aspirin; Z79.84 Long term (current) use of oral hypoglycemic drugs; Z79.899 Other long term (current) drug therapy; Z86.73 Personal history of transient ischemic attack (TIA), and cerebral infarction without residual deficits; Z85.3 Personal history of malignant neoplasm of breast; Z87.01 Personal history of pneumonia (recurrent); Z90.13 Acquired absence of bilateral breasts and nipples; Z86.69 Personal history of other diseases of the nervous system and sense organs; Z86.79 Personal history of other diseases of the circulatory system; Z85.038 Personal history of other malignant neoplasm of large intestine; Z85.42 Personal history of malignant neoplasm of other parts of uterus; Z87.440 Personal history of urinary (tract) infections; Z90.49 Acquired absence of other specified parts of digestive tract; Z90.710 Acquired absence of both cervix and uterus; Z98.890 Other specified postprocedural states; Z98.891 History of uterine scar from previous surgery; Z87.820 Personal history of traumatic brain injury; Z98.42 Cataract extraction status, left eye; Z98.41 Cataract extraction status, right eye; Z80.3 Family history of malignant neoplasm of breast; Z80.6 Family history of leukemia; Z80.51 Family history of malignant neoplasm of kidney; Z80.0 Family history of malignant neoplasm of digestive organs; Z80.42 Family history of malignant neoplasm of prostate; Z80.52 Family history of malignant neoplasm of bladder; Z80.8 Family history of malignant neoplasm of other organs or systems; Y83.4 Other reconstructive surgery as the cause of abnormal reaction of the patient, or of later complication, without mention of misadventure at the time of the procedure
CPT/HCPCS: 36415; 71046; 80048; 80053; 80202; 81001; 82550; 82553; 83605; 83735; 83880; 84100; 84484; 85025; 85379; 85610; 85730; 87040; 87077; 87086; 87186; 93005; 96361; 96365; 96366; 96367; 99285

== ENCOUNTER → 2019-04-02 | Outpatient (CLI) | payer MEDICARE, BC ==
--- NOTE | 2019-04-02 14:06 | XR ---
Right knee HISTORY: Right knee pain 3 views of the right knee There is tricompartmental marginal spurring present. Alignment is maintained, bone mineralization wit hin normal limits. Calcification present at the insertion of the quadriceps tendon. Calcifications al so present in the suprapatellar location, difficult to exclude bodies, hypertrophic change present al ez the tibial spine levels. Suprapatellar joint effusion suspected. IMPRESSION: Osteoarthritis. Possible loose bodies. Additional findings above. Knee MRI may be of bene fit.
== END | disposition home or self-care (01) ==
LOC: RADXRMAIN 13:30
PROVIDERS: ATTEND Internal Medicine
DX: M17.11 Unilateral primary osteoarthritis, right knee (principal)

== ENCOUNTER → 2019-04-08 | Outpatient (CLI) | payer MEDICARE, BC ==
[2019-04-08 16:06] VITALS: BP 134/69; PULSE 60; RESP 18; TEMP 97.6; BMI 34.0
--- NOTE | 2019-04-08 16:31 | P.PN ---
Progress Note - Text Progress Note Date: 04/08/19 Shelli is a 64-year-old white female status post revision of right mastectomy scar incision and left breast mastectomy with sentinel node biopsy. Pathology reveals no disease in her lymph nodes. 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 Margins were negative. She was seen postoperatively initially she had [address] to remove. The final drain is on the left side and is pending out approximately 30 mL for the last 2 days. The patient was admitted to the hospital on with leukocytosis. She had a urinary tract infection at that time. She was discharged on 03-30-19. The patient is no fever or chills at this time. She has no evidence of any colitis at the incision site Lungs: Clear Heart: Regular rate and rhythm Incision: Bilateral clean and dry, sterile aspect of the incision on the left has some skin excoriation MAUREEN drain serous output Impression: 1. Patient status post left mastectomy and right breast scar revision, left breast DCIS ER/MS positive 2. Final drain may for removal Plan: 1. Remove MAUREEN drain 2. Follow-up medical oncology 3. Follow-up. In 3-4 months time CC: Dr. Siegel
== END | disposition home or self-care (01) ==
LOC: WWCWWP 15:19
PROVIDERS: ATTEND Surgery
DX: Z53.9 Procedure and treatment not carried out, unspecified reason (principal)

== ENCOUNTER → 2019-05-17 | Outpatient (CLI) | payer MEDICARE, BC ==
[2019-05-17 20:45] LABS: African American GFR (CKD) 104.6 (60.0-200.0); Anion Gap 9.1 mmol/L (4.00-12.00); BUN/Creat Ratio 18.57 Ratio (12.00-20.00); Carbon Dioxide 26.9 mmol/L (21.6-31.8); Magnesium 1.6 mg/dL (1.5-2.4); Phosphorus 2.7 mg/dL (2.4-5.1); Potassium 4.5 mmol/L (3.5-5.5); Uric Acid 3.6 mg/dL (2.9-7.7)
== END | disposition home or self-care (01) ==
LOC: LABWHC1 09:33
PROVIDERS: ATTEND Internal Medicine
DX: E87.8 Other disorders of electrolyte and fluid balance, not elsewhere classified (principal); F30.8 Other manic episodes; R25.2 Cramp and spasm
CPT/HCPCS: 36415; 80048; 83735; 84100; 84550; 85652

== ENCOUNTER → 2019-07-15 | Outpatient (CLI) | payer MEDICARE, BC ==
[2019-07-15 09:54] VITALS: BP 158/86; PULSE 63; RESP 18; TEMP 97.6
--- NOTE | 2019-07-15 10:40 | P.PN ---
Subjective Progress Note Date: 07/15/19 Principal diagnosis: right mastectomy scar revision and left breast mastectomy 03-09-19 Patient status post right breast mastectomy approximately 20 years ago and most recently in February 2019 a left breast mastectomy for a small focus of DCIS. The DCIS was only 4 mm in size and the patient had a sentinel node biopsy performed also which was negative. The patient is doing well. She has mild fullness under her left arm. She had chemotherapy with the right breast cancer, no radiation therapy. She also took tamoxifen for 5 years after the right breast surgery. She was seen by Dr. Juárez after the most recent surgery and has not been recommended for any hormonal therapy at this time. She will follow up with him next year. Since the patient was seen last her has . Objective - Vital Signs Vital signs: Vital Signs Temp 97.6 F 07/15/19 09:51 Pulse 63 07/15/19 09:51 Resp 18 07/15/19 09:51 BP 158/86 07/15/19 09:51 Pulse Ox 98 07/15/19 09:51 Intake & Output 07/14/19 07/15/19 07/15/19 18:59 06:59 18:59 Weight 89.358 kg - Constitutional General appearance: Present: average body habitus - EENT Eyes: Present: EOMI ENT: Present: hearing grossly normal - Neck Neck: Present: normal ROM - Respiratory Respiratory: bilateral: CTA - Cardiovascular Rhythm: regular Heart sounds: normal: S1, S2 - Gastrointestinal Gastrointestinal Comment(s): bowel sounds positive General gastrointestinal: Present: soft - Integumentary Integumentary Comment(s): incision bilateral chest wall clean no evidence of recurrence bilateral no axillary disease bilateral - Musculoskeletal Musculoskeletal: Present: gait normal - Psychiatric Psychiatric: Present: A&O x's 3, appropriate affect, intact judgment & insight Assessment and Plan Assessment: Impression: 1. bilateral mastectomy (right side about 17 years age, and left side DCIS 03-09-19) no evidence of recurrence 2. seizures 3. boarderline DM 4. poor dentition 5. HTN 6. anxiety/depression Plan: 1. continue close surveillance, follow up in 4 months 2. medical managment of medical conditions CC: Dr. Siegel Encounter: 20 minutes, > 50% of time in planning and counselling
== END | disposition home or self-care (01) ==
LOC: WWCWWP 09:29
PROVIDERS: ATTEND Surgery
DX: Z53.9 Procedure and treatment not carried out, unspecified reason (principal)

== ENCOUNTER → 2019-08-23 | Outpatient (CLI) | payer MEDICARE, BC ==
[2019-08-23 12:50] LABS: Basophils % (A) 0 %; Eosinophils # (A) 0.3 k/uL (0-0.7); Eosinophils % (A) 3 %; HCT 38.6 % (34.0-46.0); HGB 12.7 gm/dL (11.4-16.0); Lymphocytes # (A) 2.7 k/uL (1.0-4.8); Lymphocytes % (A) 27 %; MCH 29.3 pg (25.0-35.0); MCV 88.5 fL (80.0-100.0); Mean Platelet Volume 7.2; Monocytes # (A) 0.5 k/uL (0-1.0); Monocytes % (A) 5 %; Neutrophils # (A) 6.2 k/uL (1.3-7.7); Neutrophils % (A) 63 %; Platelet Count 344 k/uL (150-450); RBC 4.36 m/uL (3.80-5.40); RDW 13.2 % (11.5-15.5); WBC 9.8 k/uL (3.8-10.6)
--- NOTE | 2019-08-23 15:41 | XR ---
Left knee HISTORY: Swelling and pain The views the left knee Marginal spurring is present tricompartmentally. Alignment is maintained. Bone mineralization mildly reduced. No fracture or dislocation. Joint space loss is greatest at the patellofemoral joint. Small ossific densities may represent loose bodies. There is soft tissue swelling present. No evident joint effusion. IMPRESSION: Suspect osteoarthritis, possible loose bodies. Knee MRI may be of benefit. Soft tissue sw elling, correlate for edema, cellulitis.
--- NOTE | 2019-08-23 15:43 | XR ---
EXAMINATION TYPE: XR chest 2V DATE OF EXAM: 08/23/2019 COMPARISON: Prior chest x-ray 03/27/2019 HISTORY: Cough TECHNIQUE: Frontal and lateral views of the chest are obtained. FINDINGS: Interval drain catheter is no longer seen. Heart size is within normal limits. Surgical cli ps are present in the right axilla. There is no focal air space opacity, pleural effusion, or pneumot horax seen. The osseous structures are intact. Surgical clips present in the upper abdomen. IMPRESSION: No acute cardiopulmonary process. Postop changes.
== END | disposition home or self-care (01) ==
LOC: RADXRMAIN 11:31
PROVIDERS: ATTEND Internal Medicine
DX: M79.89 Other specified soft tissue disorders (principal); J06.9 Acute upper respiratory infection, unspecified; R05 Cough; Z98.890 Other specified postprocedural states
CPT/HCPCS: 71046; 85025

== ENCOUNTER → 2019-12-24 | Outpatient (CLI) | payer MEDICARE, BC ==
[2019-12-24 11:44] VITALS: BP 147/56; PULSE 58; RESP 20; TEMP 98
--- NOTE | 2019-12-24 12:24 | P.PN ---
Subjective Progress Note Date: 12/24/19 Principal diagnosis: bilateral mastectomy Patient status post right breast mastectomy approximately 20 years ago and most recently in February 2019 a left breast mastectomy for a small focus of DCIS. The DCIS was only 4 mm in size and the patient had a sentinel node biopsy performed also which was negative. The patient is doing well. She has mild fullness under her left arm. She had chemotherapy with the right breast cancer, no radiation therapy. She also took tamoxifen for 5 years after the right breast surgery. She was seen by Dr. Juárez after the most recent surgery and was not recommended for any hormonal therapy at this time. Patient still has some positional/intermittent tenderness at the site where a MAUREEN drain was located. She is doing well at this time. Family history: mother: breast cancer, cervical cancer, leukemia maternal grandmother: cancer ? type father: colon cancer, bladder cancer, kidney cancer, prostate cancer, skin cancer daughter: breast cancer 2 aunts maternal: breast cancer cousin: bilateral mastectomy at 30 cousin: right mastectomy cousin: partial mastectomy cousin: prostate cancer/kidney cancer Hormonal History: menarche: 10 , breast fed: no, age at first :19 menopause: hysterectomy at 44 BCP: 7 years hormones: none Past surgical history: 1. Bilateral mastectomy 2. Cholecystectomy 3. Hysterectomy 4. Appendectomy 5. Tonsils and adenoids 6. Bladder suspension 7. Hernia surgery 8. 2 C-sections 9. Brain aneurysm 10. Scalp 11. colon resection Medical history: 1. Hypertension 2. Seizures 3. Diabetes 4. Arthritis 5. Multiple cancers: colon cancer, breast cancer, ? ovarian right cancer Social history: Smoke: Negative Alcohol: Negative Drugs: Negative ROS: HEENT: ringing in right ear occasional Lungs: none heart: none GI: diarrhea, history of colon cancer : history of ovarian cancer, status post JEREMY Musculoskeletal:arthritis Hematologic: Negative Neurologic: Negative Psychiatric: depression Objective - Vital Signs Vital signs: Vital Signs Temp 98.0 F 12/24/19 11:39 Pulse 58 L 12/24/19 11:39 Resp 20 12/24/19 11:39 BP 147/56 12/24/19 11:39 Pulse Ox 99 12/24/19 11:39 Intake & Output 12/23/19 12/24/19 12/24/19 18:59 06:59 18:59 Weight 92.986 kg - Exam BMI 37.5 - Constitutional General appearance: Present: obese - EENT Eyes: Present: EOMI ENT: Present: hearing grossly normal - Neck Neck: Present: normal ROM - Cardiovascular Rhythm: regular Heart sounds: normal: S1, S2 - Gastrointestinal General gastrointestinal: Present: normal bowel sounds, soft - Integumentary Integumentary: Present: normal turgor - Musculoskeletal Musculoskeletal: Present: gait normal - Psychiatric Psychiatric: Present: A&O x's 3, appropriate affect, intact judgment & insight - Additional findings Additional findings: chest wall: right: no evidence or recurrence of cancer left: no evidence of recurrence of cancer No adenopathy of concern in the right or left axilla Assessment and Plan Assessment: Impression: 1. Patient status post bilateral mastectomies no evidence of any recurrent cancer, right breast was many years ago uncertain at this stage left breast was a stage 0 2. Hypertension 3. History of seizures 4. Diabetes 5. Arthritis 6. History of depression Plan: 1. Repeat examination here in 6 months to follow to assure no recurrence 2. Continue to follow with Dr. Juárez 3. Follow-up Dr. Siegel CC: Dr. Siegel, Dr. Juárez encounter 35 minutes, > 50% of time in planning and counselling Time with Patient: Greater than 30
== END | disposition home or self-care (01) ==
LOC: WWCWWP 11:29
PROVIDERS: ATTEND Surgery
DX: Z53.9 Procedure and treatment not carried out, unspecified reason (principal)

== ENCOUNTER 2020-04-14 21:38 | Emergency (ER) | payer MEDICARE, BC ==
[2020-04-14 21:55] VITALS: TEMP 98.1
--- NOTE | 2020-04-14 22:29 | ED ---
Headache HPI - General Chief Complaint: Headache Stated Complaint: Head Pain Time Seen by Provider: 04/14/20 22:09 Mode of arrival: wheelchair Limitations: no limitations - History of Present Illness Complaint: headache Onset/Timin -: week(s) Onset Description: gradual Location: right, other (post-auricular) Severity: severe Quality: aching Consistency: constant Improves With: nothing Worsens With: none Context: occurred at rest Associated Symptoms: other (vertigo) Treatments Prior to Arrival: none - Related Data Home Medications Medication Instructions Recorded Confirmed carBAMazepine [Carbatrol] 600 mg PO BID 12/16/13 12/24/19 glipiZIDE [Glucotrol] 5 mg PO BID 12/16/13 12/24/19 hydrALAZINE HCL [Apresoline] 50 mg PO TID 12/16/13 12/24/19 levETIRAcetam [Keppra] 1,000 mg PO BID 12/16/13 12/24/19 Aspirin 325 mg PO HS 04/21/14 12/24/19 Atorvastatin [Lipitor] 20 mg PO QAM 04/21/14 12/24/19 Topiramate 100 mg PO HS 04/21/14 12/24/19 Enalapril [Vasotec] 10 mg PO BID 07/08/17 12/24/19 Sertraline [Zoloft] 100 mg PO DAILY 12/16/18 12/24/19 amLODIPine [Norvasc] 5 mg PO BID@1200,2200 03/05/19 12/24/19 atenoloL [Tenormin] 50 mg PO BID 03/27/19 12/24/19 Metoprolol Succinate [Toprol XL] 25 mg PO DAILY 07/15/19 12/24/19 cloNIDine HCL [Catapres] 0.1 mg PO BID 07/15/19 12/24/19 hydroCHLOROthiazide [Hydrodiuril] 12.5 mg PO DAILY 07/15/19 12/24/19 Allergies Allergy/AdvReac Type Severity Reaction Status Date / Time No Known Allergies Allergy Verified 04/14/20 21:55 Review of Systems ROS Statement: Those systems with pertinent positive or pertinent negative responses have been documented in the HPI. ROS Other: All systems not noted in ROS Statement are negative. Constitutional: Denies: fever, chills Eyes: Denies: eye pain, vision change ENT: Reports: ear pain. Denies: dental pain, hearing loss Respiratory: Denies: cough, dyspnea Cardiovascular: Denies: chest pain, syncope Gastrointestinal: Denies: abdominal pain, nausea, vomiting Musculoskeletal: Denies: back pain Skin: Denies: rash Neurological: Reports: as per HPI, headache, vertigo. Denies: weakness, numbness, paresthesias, confusion, abnormal gait Hematological/Lymphatic: Denies: easy bleeding Past Medical History Past Medical History: Cancer, CVA/TIA, Diabetes Mellitus, Hyperlipidemia, Hypertension, Osteoarthritis (OA), Pneumonia, Seizure Disorder Additional Past Medical History / Comment(s): chronic diarrhea, last st/colon/ovarian,uterine CA, no bp in rt arm. told she had a stroke 03/2014 "blood clot in back of head". hx of head injury 3rd grade, pt states she has "slow thinking process"and seizures started after injury. -last seizure >5 years ago, hx back pain. brain aneurysm 2007,menieres disease, just put on amlodipine about a week ago for BP History of Any Multi-Drug Resistant Organisms: None Reported Past Surgical History: Adenoidectomy, Appendectomy, Bladder Surgery, Bowel Resection, Breast Surgery, Section, Cholecystectomy, Hernia Repair, Hysterectomy, Orthopedic Surgery, Tonsillectomy Additional Past Surgical History / Comment(s): rt mastectomy 15 yrs. ago, manpreet BREAST BX, MANPREET CATARACT SX, BLADDER SUSPENSION, bowel resection x2 d/t ca. Past Anesthesia/Blood Transfusion Reactions: Postoperative Nausea & Vomiting (PONV) Past Psychological History: Depression Smoking Status: Never smoker Past Alcohol Use History: None Reported Past Drug Use History: None Reported - Past Family History Mother Family Medical History: Cancer Father Family Medical History: Cancer General Exam Limitations: no limitations General appearance: alert, in no apparent distress Head exam: Present: atraumatic, normocephalic Eye exam: Present: normal appearance. Absent: scleral icterus, conjunctival injection ENT exam: Present: normal oropharynx, mucous membranes moist, TM's normal bilaterally, normal external ear exam Neck exam: Present: normal inspection, full ROM. Absent: tenderness, meningismus Respiratory exam: Present: normal lung sounds bilaterally. Absent: respiratory distress, wheezes, rales, rhonchi, stridor Cardiovascular Exam: Present: regular rate, normal rhythm, normal heart sounds. Absent: systolic murmur, diastolic murmur, rubs, gallop Back exam: Present: normal inspection. Absent: CVA tenderness (R), CVA tenderness (L) Neurological exam: Present: alert, oriented X3, CN II-XII intact. Absent: motor sensory deficit Skin exam: Present: warm, dry, intact, normal color. Absent: rash Course Vital Signs 04/14/20 21:52 Temperature 98.1 F Pulse Rate 64 Respiratory 17 Rate Blood Pressure 170/73 O2 Sat by Pulse 99 Oximetry Disposition Clinical Impression: Headache Disposition: HOME SELF-CARE Condition: Good Instructions (If sedation given, give patient instructions): Acute Headache (ED) Is patient prescribed a controlled substance at d/c from ED?: No Referrals: Flynn Siegel MD [Primary Care Provider] - 1-2 days Jose Molina MD [STAFF PHYSICIAN] - 1-2 days
[2020-04-14] MEDS ORDERED: diphenhydrAMINE 50 MG/ML 1 ML VIAL IVP STA (22:30)
[2020-04-14] MEDS ORDERED: METOCLOPRAMIDE 5 MG/ML 2 ML VIAL IVP STA (22:30)
[2020-04-14] MEDS ORDERED: SODIUM CHLORIDE 0.9% 500 ML 500 ML IV STA (22:30)
--- NOTE | 2020-04-15 00:05 | CT ---
EXAMINATION TYPE: CT brain wo con DATE OF EXAM: 04/14/2020 COMPARISON: 07/08/2017 HISTORY: severe H/A CT DLP: 1095.40 mGycm Automated exposure control for dose reduction was used. Ventricles have normal size. There is no mass effect nor midline shift. There is no sign of intracran ial hemorrhage. There is some cortical small 1.5 cm area of hypodensity medial right occipital lobe c onsistent with an old infarct. The calvarium is intact. Skull base is intact. IMPRESSION: Old right occipital lobe infarct. No acute intracranial abnormality. No change compared to old exam.
[2020-04-15 01:47] VITALS: BP 144/70; PULSE 62; RESP 18
== END 2020-04-15 00:52 | disposition home or self-care (01) ==
LOC: EC 21:38
DX: R51 Headache (principal); I10 Essential (primary) hypertension; E11.9 Type 2 diabetes mellitus without complications; M19.90 Unspecified osteoarthritis, unspecified site; G40.909 Epilepsy, unspecified, not intractable, without status epilepticus; E78.5 Hyperlipidemia, unspecified; F32.9 Major depressive disorder, single episode, unspecified; Z79.899 Other long term (current) drug therapy; Z79.82 Long term (current) use of aspirin; Z79.84 Long term (current) use of oral hypoglycemic drugs; Z85.42 Personal history of malignant neoplasm of other parts of uterus; Z86.73 Personal history of transient ischemic attack (TIA), and cerebral infarction without residual deficits
CPT/HCPCS: 70450; 99284; 96374; 96375; J1200; J2765

== ENCOUNTER → 2020-05-16 | Outpatient (CLI) | payer MEDICARE, BC ==
--- NOTE | 2020-05-16 13:05 | XR ---
EXAMINATION TYPE: XR chest 2V DATE OF EXAM: 05/16/2020 COMPARISON: 08/23/2019 TECHNIQUE: PA and lateral views submitted. HISTORY: Cough FINDINGS: The lungs are clear and there is no pneumothorax, pleural effusion, or focal pneumonia. Surgical cl ips in the right axilla. Arthropathy of the shoulders. No overt failure. No pneumothorax. Heart is en larged. Hypertrophic and degenerative change of the spine. IMPRESSION: 1. No acute process.
--- NOTE | 2020-05-16 13:11 | XR ---
EXAMINATION TYPE: XR ribs LT DATE OF EXAM: 05/16/2020 COMPARISON: NONE HISTORY: Pain TECHNIQUE: 4 views submitted FINDINGS: Severe arthropathy of the AC joint and there is arthropathy of the glenohumeral joint. Rib cage is intact. No acute displaced fracture. No destructive changes. IMPRESSION: 1. No acute displaced rib fracture. 3. Severe arthropathy of the left shoulder.
== END | disposition home or self-care (01) ==
LOC: RADXRMAIN 11:53
PROVIDERS: ATTEND Internal Medicine
DX: R09.1 Pleurisy (principal); M81.0 Age-related osteoporosis without current pathological fracture; Z90.10 Acquired absence of unspecified breast and nipple
CPT/HCPCS: 71046

== ENCOUNTER → 2020-05-24 | Outpatient (CLI) | payer MEDICARE, BC ==
[2020-05-25 01:27] LABS: Hemoglobin A1C 7.7 % (4.0-6.0)
[2020-05-25 03:52] LABS: African American GFR (CKD) 103.9 (60.0-200.0); BUN/Creat Ratio 15.71 Ratio (12.00-20.00); Calcium 9.4 mg/dL (8.7-10.3); Non-African American GFR(CKD) 89.7 (60.0-200.0)
== END | disposition home or self-care (01) ==
LOC: LABWHC1 13:37
PROVIDERS: ATTEND Internal Medicine
DX: E11.65 Type 2 diabetes mellitus with hyperglycemia (principal)
CPT/HCPCS: 36415; 80048; 83036

== ENCOUNTER → 2020-05-24 | Outpatient (CLI) | payer MEDICARE, BC ==
--- NOTE | 2020-05-24 13:39 | MR ---
EXAMINATION TYPE: MR brain wo/w con DATE OF EXAM: 05/24/2020 1:32 PM COMPARISON: NONE HISTORY: Severe head aches CONTRAST: Patient received 9 mL intravenous Gadavist gadolinium contrast. Multiplanar and multispin-echo imaging of the brain was performed . Pre and post contrast enhanced i mages are obtained. The ventricles, basal cisterns and sulci overlying the cerebral convexities are mildly enlarged. There is evidence of mild periventricular white matter ischemic demyelination. Remote deep white matter insults are also noted. No acute edema is seen on diffusion weighted imaging. There is no evidence for midline shift or mass effect. Acute intracranial hemorrhage or extra-axial collection is not evident. No enhancing lesions are seen. The paranasal sinuses and mastoid air cells are well-aerated. IMPRESSION: Age-related atrophic and chronic small vessel ischemic change. No acute intracranial process at this time. No enhancing lesions are seen.
--- NOTE | 2020-05-24 13:42 | MR ---
EXAMINATION TYPE: MR angio head wo con DATE OF EXAM: 05/24/2020 1:33 PM COMPARISON: NONE HISTORY: Severe head aches Three-dimensional [id number] intracranial MRA was performed with multiple intensity projection im ages submitted and source data reviewed at the workstation. The vertebrobasilar system as well as intracranial portions of the internal carotid arteries and thei r major tributaries are patent. I do not see evidence for sizable aneurysm or vascular malformation. IMPRESSION: Normal study.
== END | disposition home or self-care (01) ==
LOC: RADMRIMAIN 12:32
PROVIDERS: ATTEND Psychiatry & Neurology Neurology
DX: G31.1 Senile degeneration of brain, not elsewhere classified (principal); I67.82 Cerebral ischemia; I67.1 Cerebral aneurysm, nonruptured; C71.9 Malignant neoplasm of brain, unspecified
CPT/HCPCS: 70544; 70553; A9585

== ENCOUNTER → 2020-06-26 | Outpatient (CLI) | payer MEDICARE, BC ==
[2020-06-26 11:46] LABS: Carbamazepine (Tegretol) 10.3 ug/mL (4.0-12.0)
[2020-06-26 11:47] LABS: African American GFR (CKD) 76.7 (60.0-200.0); Albumin 4.7 g/dL (3.80-4.90); Albumin/Globulin Ratio 2.24 (1.60-3.17); Anion Gap 13.3 mmol/L (4.00-12.00); BUN/Creat Ratio 25.56 Ratio (12.00-20.00); Calcium 9.4 mg/dL (8.7-10.3); Carbon Dioxide 27.7 mmol/L (21.6-31.8); Chol/HDL Ratio 4.9; Globulin 2.1 g/dL (1.6-3.3); Non-African American GFR(CKD) 66.2 (60.0-200.0); Potassium 4.2 mmol/L (3.5-5.5); Total Bilirubin 0.3 mg/dL (0.3-1.2); Total Protein 6.8 g/dL (6.2-8.2)
== END | disposition home or self-care (01) ==
LOC: LABWHC1 07:05
PROVIDERS: ATTEND Internal Medicine Interventional Cardiology
DX: E78.2 Mixed hyperlipidemia (principal); G40.009 Localization-related (focal) (partial) idiopathic epilepsy and epileptic syndromes with seizures of localized onset, not intractable, without status epilepticus
CPT/HCPCS: 36415; 80053; 80061; 80156; 80177

== ENCOUNTER → 2020-06-30 | Outpatient (CLI) | payer MEDICARE, BC ==
[2020-06-30 14:45] VITALS: BP 141/70; PULSE 85; RESP 18; TEMP 98.1
--- NOTE | 2020-06-30 14:53 | P.PN ---
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 The DCIS was only 4 mm in size and the patient had a sentinel node biopsy performed also which was negative. The patient is doing well. She has mild fullness under her left arm. She had chemotherapy with the right breast cancer, no radiation therapy. She also took tamoxifen for 5 years after the right breast surgery. She was seen by Dr. Juárez after the most recent surgery and was not recommended for any hormonal therapy at this time. Patient has no complaints at this time. She is doing well at this time. Family history: mother: breast cancer, cervical cancer, leukemia maternal grandmother: cancer ? type father: colon cancer, bladder cancer, kidney cancer, prostate cancer, skin cancer daughter: breast cancer 2 aunts maternal: breast cancer cousin: bilateral mastectomy at 30 cousin: right mastectomy cousin: partial mastectomy cousin: prostate cancer/kidney cancer Hormonal History: menarche: 10 , breast fed: no, age at first :19 menopause: hysterectomy at 44 BCP: 7 years hormones: none Past surgical history: 1. Bilateral mastectomy 2. Cholecystectomy 3. Hysterectomy 4. Appendectomy 5. Tonsils and adenoids 6. Bladder suspension 7. Hernia surgery 8. 2 C-sections 9. Brain aneurysm 10. Scalp 11. colon resection Medical history: 1. Hypertension 2. Seizures 3. Diabetes 4. Arthritis 5. Multiple cancers: colon cancer, breast cancer, ? ovarian right cancer Social history: Smoke: Negative Alcohol: Negative Drugs: Negative ROS: HEENT: ringing in right ear occasional Lungs: none heart: none GI: diarrhea, history of colon cancer : history of ovarian cancer, status post JEREMY Musculoskeletal:arthritis Hematologic: Negative Neurologic: Negative Psychiatric: depression Objective - Vital Signs Vital signs: Vital Signs Temp 98.1 F 06/30/20 14:42 Pulse 85 06/30/20 14:42 Resp 18 06/30/20 14:42 BP 141/70 06/30/20 14:42 Pulse Ox 96 06/30/20 14:42 Intake & Output 06/29/20 06/30/20 06/30/20 18:59 06:59 18:59 Weight 86.636 kg - Exam BMI 34.9 - Constitutional General appearance: Present: average body habitus - EENT Eyes: Present: EOMI ENT: Present: hearing grossly normal - Respiratory Respiratory: bilateral: CTA - Cardiovascular Rhythm: regular Heart sounds: normal: S1, S2 - Gastrointestinal General gastrointestinal: Present: soft - Integumentary Integumentary Comment(s): Excision bilateral mastectomy sites clean and dry no evidence of recurrent disease - Musculoskeletal Musculoskeletal: Present: gait normal - Psychiatric Psychiatric: Present: A&O x's 3, appropriate affect Assessment and Plan Assessment: Impression: 1. Hypertension 2. Seizures ( under control) 3. Diabetes 4. Arthritis 5. Multiple cancers: colon cancer, breast cancer, ? ovarian right cancer 6. Bilateral mastectomies/no evidence of recurrent cancer Plan: 1. Follow up in 1 year for surveillance CC: Dr. Siegel encounter 15 minutes >50% of time in planning and counselling
== END | disposition home or self-care (01) ==
LOC: WWCWWP 14:23
PROVIDERS: ATTEND Surgery
DX: Z53.9 Procedure and treatment not carried out, unspecified reason (principal)

== ENCOUNTER → 2020-10-17 | Outpatient (CLI) | payer MEDICARE, BC | END | disposition home or self-care (01) | LOC: LABWHC1 07:09 | PROVIDERS: ATTEND Internal Medicine | DX: G40.219 Localization-related (focal) (partial) symptomatic epilepsy and epileptic syndromes with complex partial seizures, intractable, without status epilepticus (principal) | CPT/HCPCS: 36415; 80156; 80177; 83036 ==

== ENCOUNTER 2021-03-15 19:20 | Emergency (ER) | payer MEDICARE, BC ==
[2021-03-15] MEDS ORDERED: ASPIRIN-ACET-CAFF 250-250-65MG 1 EACH TAB PO STA (19:29)
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
--- NOTE | 2021-03-15 21:05 | CT ---
EXAMINATION TYPE: CT brain wo con DATE OF EXAM: 03/15/2021 COMPARISON: 04/14/2020 HISTORY: Blunt trauma TECHNIQUE: CT scan of the head without contour CT DLP: 1188.4 mGycm Automated exposure control for dose reduction was used. FINDINGS: No evidence for acute intracranial hemorrhage, midline shift or mass effect. The xavier-white matter differentiation is preserved. Focal area of low attenuation is again seen in the right occipital lobe, may be related to remote inf arct. The posterior fossa is unremarkable. The ventricles and CSF spaces are normal in configuration. No acute orbital, osseous or soft tissue abnormalities seen. Mild mucosal sinus disease seen with no air-fluid in the paranasal sinuses. IMPRESSION: NO ACUTE INTRACRANIAL ABNORMALITY. NO SIGNIFICANT CHANGE SINCE PRIOR.
[2021-03-15 21:37] VITALS: BP 176/84; PULSE 91; RESP 18; TEMP 98.9
== END 2021-03-15 21:27 | disposition home or self-care (01) ==
LOC: EC 19:20
DX: S00.03XA Contusion of scalp, initial encounter (principal); E11.9 Type 2 diabetes mellitus without complications; I10 Essential (primary) hypertension; E78.5 Hyperlipidemia, unspecified; M19.90 Unspecified osteoarthritis, unspecified site; G40.909 Epilepsy, unspecified, not intractable, without status epilepticus; F32.9 Major depressive disorder, single episode, unspecified; Z79.84 Long term (current) use of oral hypoglycemic drugs; Z86.73 Personal history of transient ischemic attack (TIA), and cerebral infarction without residual deficits; W22.8XXA Striking against or struck by other objects, initial encounter
CPT/HCPCS: 70450; 99284

== ENCOUNTER 2021-06-07 17:19 | Inpatient (IN) | payer MEDICARE, BC ==
[2021-06-07] MEDS ORDERED: LORazepam 2 MG/ML INJ IV STA (17:49)
[2021-06-07] MEDS ORDERED: SODIUM CHLORIDE 0.9% 500 ML 500 ML IV STA (17:49)
[2021-06-07] MEDS ORDERED: cloNIDine HCL 0.1 MG TAB PO STA (18:00)
[2021-06-07] MEDS ORDERED: levETIRAcetam IV 1,500 MG in SALINE 1 100ML.BAG IVPB STA (18:30)
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
[2021-06-07 18:38] LABS: Basophils # (A) 0.1 k/uL (0-0.2); Basophils % (A) 1 %; Eosinophils # (A) 0.6 k/uL (0-0.7); Eosinophils % (A) 5 %; HCT 44.7 % (34.0-46.0); HGB 14.3 gm/dL (11.4-16.0); Lymphocytes # (A) 4.1 k/uL (1.0-4.8); Lymphocytes % (A) 31 %; MCH 29.5 pg (25.0-35.0); MCHC 31.9 g/dL (31.0-37.0); MCV 92.5 fL (80.0-100.0); Mean Platelet Volume 7.1; Monocytes # (A) 0.8 k/uL (0-1.0); Monocytes % (A) 6 %; Neutrophils # (A) 7.3 k/uL (1.3-7.7); Neutrophils % (A) 56 %; Platelet Count 417 k/uL (150-450); RBC 4.84 m/uL (3.80-5.40); RDW 12.6 % (11.5-15.5); WBC 13.1 k/uL (3.8-10.6)
[2021-06-07 18:49] LABS: AST 23 U/L (14-36); African American GFR (CKD) >90 (>60 ml/min/1.73 sqM); Albumin 4.5 g/dL (3.5-5.0); Alkaline Phosphatase 180 U/L (38-126); Anion Gap 22 mmol/L; Blood Urea Nitrogen 12 mg/dL (7-17); Calcium 9.6 mg/dL (8.4-10.2); Carbon Dioxide 18 mmol/L (22-30); Chloride 102 mmol/L (98-107); Glucose 249 mg/dL (74-99); Non-African American GFR(CKD) >90 (>60 ml/min/1.73 sqM); Potassium 3.1 mmol/L (3.5-5.1); Sodium 142 mmol/L (137-145); Total Bilirubin 0.2 mg/dL (0.2-1.3); Total Protein 7.2 g/dL (6.3-8.2)
[2021-06-07 18:56] LABS: ALT 29 U/L (4-34)
--- NOTE | 2021-06-07 18:59 | CT ---
EXAMINATION TYPE: CT brain wo con DATE OF EXAM: 06/07/2021 COMPARISON: none HISTORY: Patient poor historian. CT DLP: 1188.[address] of the brain was performed. The ventricles, basal cisterns and sulci overlying the cerebral convexities demonstrate mild enlargem ent. There is no evidence for intracranial hemorrhage or sulcal effacement. There is decreased attenuation about the periventricular white matter and deep white matter of both c erebral hemispheres, compatible with chronic small vessel ischemia. Differential diagnosis does inclu de demyelination. No mass effects are seen.No midline shift. Osseous calvarium is intact. If symptoms persist consider MRI. IMPRESSION: 1. Age related atrophic and chronic small vessel ischemic change without acute intracranial process s een at this time.
[2021-06-07] MEDS ORDERED: POTASSIUM CHLORIDE ER 20 MEQ TAB.ER PO STA (19:32)
[2021-06-07] MEDS ORDERED: NALOXONE 0.4 MG/ML 1 ML VIAL IV PRN (19:37)
[2021-06-07] MEDS ORDERED: LORazepam 2 MG/ML INJ IV PRN ×2 (19:37→19:38)
[2021-06-07] MEDS ORDERED: ACETAMINOPHEN TAB 325 MG TAB PO PRN (19:37)
[2021-06-07] MEDS: SODIUM CHLORIDE 0.9% 1,000 ML IV SCH (20:03)
[2021-06-07] MEDS ORDERED: ONDANSETRON 4 MG/2 ML VIAL IVP PRN (23:09)
[2021-06-07] MEDS ORDERED: DIPHENOX-ATROP 2.5-0.025 MG 1 EACH TAB PO PRN (23:10)
[2021-06-07] MEDS ORDERED: ONDANSETRON 4 MG TAB PO PRN (23:10)
[2021-06-07] MEDS ORDERED: IBUPROFEN 800 MG TAB PO PRN (23:10)
[2021-06-08] MEDS: METOPROLOL TARTRATE 50 MG TAB PO SCH ×3 (01:00→19:57)
[2021-06-08 01:26] VITALS: RESP 16
[2021-06-08 07:37] LABS: Glucose,Whole Blood 150 mg/dL (75-99)
[2021-06-08] MEDS: SERTRALINE 100 MG TAB PO SCH (08:32)
[2021-06-08] MEDS: hydrALAZINE HCL 50 MG TAB PO SCH ×3 (08:33→23:28)
[2021-06-08] MEDS: FUROSEMIDE 20 MG TAB PO SCH (08:33)
[2021-06-08] MEDS: metFORMIN 500 MG TAB PO SCH ×2 (08:33→19:56)
[2021-06-08] MEDS: levETIRAcetam 500 MG TAB PO SCH ×2 (08:33→19:58)
[2021-06-08] MEDS: lisinopriL 20 MG TAB PO SCH ×2 (08:33→19:56)
[2021-06-08] MEDS: glipiZIDE 5 MG TAB PO SCH ×2 (08:34→18:18)
[2021-06-08] MEDS: amLODIPine 10 MG TAB PO SCH (08:34)
[2021-06-08] MEDS: carBAMazepine 300 MG CPMP.12HR PO SCH ×2 (08:34→19:58)
[2021-06-08] MEDS: ASPIRIN 81 MG PO SCH (08:34)
[2021-06-08] MEDS: SODIUM CHLORIDE 0.9% 1,000 ML IV SCH ×2 (08:39→19:59)
[2021-06-08] MEDS ORDERED: MECLIZINE 25 MG TAB PO PRN (09:00)
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
[2021-06-08 12:15] LABS: Glucose,Whole Blood 112 mg/dL (75-99)
[2021-06-08] MEDS: POTASSIUM BICARBONATE/CIT AC 20 MEQ TABLET.EFF PO SCH ×2 (12:51→14:00)
--- NOTE | 2021-06-08 14:43 | HP ---
HISTORY AND PHYSICAL DATE OF ADMISSION: 06/07/2021 at 7:40 p.m. The patient was seen and evaluated on 06/08/[address] Siegel. HISTORY AND CHIEF COMPLAINT: The patient was brought by ambulance to the emergency room with underlying history of seizure disorder. HISTORY OF PRESENT ILLNESS: This is a 66-year-old female. She stated she was talking outside with a neighbor and suddenly the EMS came and took her to the emergency room. Apparently the neighbor found her with seizure and they called the EMS and they took her to her to the ER. The ER physician, Dr. Duarte Crandall, said she also had a seizure in the emergency room department at [facility]. The patient stated that she had history of traumatic brain injury in the third grade and she had history of brain aneurysm, hypertension and hyperlipidemia. She denied any recent tonic colonic seizures, but she stated that she has been under severe stress with her daughter, who has been found to have metastatic breast cancer, and they doing chemo after surgery that she had recently. Her daughter is 40 years old. She was significantly upset about that. She herself never called the ambulance. In the hospital she was found to have a focal seizure and they consulted Neurology, Dr. Kyaw Carballo. She denied any weakness or headache or numbness. She felt that she had taken her medication for her seizure. She is followed by Dr. Molina, neurologist, as outpatient. In the ER, she stated that she missed one dose of Keppra, and they loaded her with Keppra and anti-seizure medication. Her seizures in the past were generalized tonic colonic seizures, which she had not had for quite a while -- many years ago. The patient was on multiple medications for seizure disorder by Dr. Molina. When she arrived in the emergency room she was found to have hypertension that was uncontrolled, and at that time they did not give her medication. The workup in the ER included CT scan showing atrophic chronic small-vessel disease without acute intracranial process. Her medication was: 1. Carbamazepine 600 mg twice a day. 2. She is diabetic and on and glipizide, Glucotrol 5 mg b.i.d. 3. She is on Keppra 1000 mg p.o. twice a day b.i.d. 4. For the hyperlipidemia she take atorvastatin 20 mg at bedtime. 5. For underlying depression and anxiety, she takes sertraline 100 mg p.o. daily. 6. For aches and pains she takes ibuprofen 800 mg every 8 hours p.r.n. 7. She is also on aspirin, enteric-coated, low-dose 80 mg once a day. 8. She also on Vasotec 20 mg p.o. b.i.d. 9. Furosemide 20 mg p.o. daily and for dizziness 25 mg p.o. daily p.r.n. 10.She is also on beta-blockers 50 mg b.i.d. 11.Metoprolol tartrate. 12.She is on Zofran for nonspecific nausea 4 mg daily p.r.n. 13.She is also on topiramate 100 mg at bedtime. 14.Amlodipine -- Norvasc 10 mg daily at bedtime. 15.Hydralazine 100 mg t.i.d. 16.Metformin, Glucophage 1000 mg b.i.d. PAST MEDICAL HISTORY: She has history of cancer bilaterally and she had removal of the breasts bilaterally. She has history of TIA; I am not sure about CVA. She has diabetes mellitus, hyperlipidemia, hypertension, and she had osteoarthritis and seizure disorders in the past. She had intermittently nonspecific diarrhea, chronic in nature. She had breast and colon, ovarian uterine cancer. There is the history of a stroke that she was told in March 2014 and history of blood clot in the back of the head -- that is by the history only. Her last seizures in the third grade many years ago and she had a brain aneurysm 2007 and she had history of Meniere's disease. She had metabolic acidosis with low carbon dioxide, as mentioned above. SURGICAL HISTORY: She has underlying history of adenoidectomy and history of appendectomy and bladder surgery and bowel resection, breast resection, section, cholecystectomy, hernia repair, hysterectomy, orthopedic surgery and tonsillectomy. She had right mastectomy 15 years ago, followed recently by bilateral breast removed by Dr. Gricel Guzman and she had bilateral cataracts and she had bladder suspension and bowel resection x2. She had postoperative nausea and vomiting in the past. She has history of depression. She has never smoked in the past. FAMILY HISTORY: Her daughter has breast cancer as well. Family positive for cancer. Her father has cancer. PHYSICAL EXAMINATION: Her vital signs on admission were temperature 97.6 F oral, pulse rate 99, which gradually improved to 64, but her oxygen pulse ox was 98% on room air. Her blood pressure was 191/99 with a mean 129. Subsequently she has improved with the start of her medication and wants to resume her medication. Her temperature this morning was 97.6 F oral and pulse 64, respiratory rate 16, blood pressure 154/79 with the pulse ox 97% on room air and the mean blood pressure 104. On examination, the patient is on seizure precautions in bed, room 625 bed 1. Her head was normocephalic, atraumatic. Pupils were equal, reactive. Oropharynx was negative and she has a few teeth only. Hearing was mildly depressed with a hearing deficit. Nose with no rhinitis. The neck was supple. No JVD. No thyromegaly. No lymphadenopathy. Trachea midline. The chest was clear to auscultation and percussion. She had a scar from previous right and left breast mastectomy. No tenderness on the chest wall. Heart revealed PMI in the fifth intercostal space outside midclavicular line with normal S1, S2 with mild cardiomegaly. The abdomen was obese with positive bowel sounds. No organ enlargement. Extremities had no edema and positive pulses. The patient did have a CT scan of the brain, as mentioned, and did have EKG. The EKG showed normal sinus rhythm with a rate of 97% with nonspecific ST-T abnormalities. Patient did not have any portable chest x-ray or chest x-ray in the emergency room. LABORATORY: Reviewed, which was done on 06/07/2021 in the emergency room at 1829 hours. It found WBC 13.1 with the presence of leukocytosis. Sodium 142, but potassium was 3.1 with the hypokalemia. Also she had carbon dioxide 18 with the underlying metabolic acidosis. Etiology is unclear. Her estimated glomerular filtration rate is for non- more than 90 and her blood sugar yesterday which was non-fasting was 249. However, the patient started her medication. She is on oral hypoglycemic agent and her POC glucose indicates this morning 112, which is reasonable. In reviewing also the chemistry, her magnesium was normal. Liver enzymes were normal. AST 23, ALT 29. Alkaline phosphatase was elevated at 180. She has normal protein at 7.2 and albumin 4.5. She had coronavirus PCR not detected. However, there is no urinalysis to explain the leukocytosis. However, that also could be from the stress with the seizure as well. The patient subsequently was seen by the neurologist, Dr. Kyaw Carballo, and his consultation note was reviewed as well. Patient with seizure disorder and currently breakthrough seizure. His final conclusion was that she had a breakthrough seizure that could be provoked with noncompliance with medication and generalized stress from outside with her daughter as well. She felt generalized weakness, but urinalysis was not obtained and she did not complain of UTI, but she has a history of bladder suspension, and that could be also an underlying problem. The patient has underlying hypertension accelerated with hypertensive heart disease; could be with the breakthrough seizure. He recommended at the end to cancel his EEG order and he deferred that to the outpatient neurologist, Dr. Molina. However, patient has currently hypertension not well controlled and she also has hypokalemia and leukocytosis. Still we have to monitor her seizure over the observation period. The patient also has to continue her medication in the hospital and he had discussed with the patient, as he stated, that the [facility] does not allow her to drive for 6 months until she is free of seizure. Avoid heights and swimming unassisted. Avoid using heavy machinery. That is per Dr. Carballo's note. He stated in his note that the patient is cleared from neurological perspective. But the patient currently still has medical problems and we need to continue to observe the patient overnight. Further treatment will be obtained for the leukocytosis. Repeat CBC tomorrow and BMP as well as today after supplementation with potassium bicarb. She had metabolic acidosis with carbon dioxide low, as mentioned above, and this will be reassessed tomorrow. Continue the IV fluid and continue her medication controlling the blood pressure and CBG to scale with coverage with insulin for better control of diabetes if she is hyperglycemic. MMODL / IJN: [id number] / FREEMAN
[2021-06-08 15:45] LABS: Appearance,Urine Clear (Clear); Bilirubin,Urine Negative (Negative); Blood,Urine Negative (Negative); Color,Urine Yellow; Glucose,Urine (UA) Negative (Negative); Ketones,Urine Negative (Negative); Leukocyte Esterase,Urine Negative (Negative); Nitrite,Urine Negative (Negative); Protein,Urine Negative (Negative); Specific Gravity,Urine 1.019 (1.001-1.035); Urobilinogen,Urine <2.0 mg/dL (<2.0)
[2021-06-08 17:13] LABS: African American GFR (CKD) >90 (>60 ml/min/1.73 sqM); Anion Gap 10 mmol/L; Blood Urea Nitrogen 6 mg/dL (7-17); Calcium 8.6 mg/dL (8.4-10.2); Carbon Dioxide 25 mmol/L (22-30); Chloride 104 mmol/L (98-107); Glucose 101 mg/dL (74-99); Non-African American GFR(CKD) >90 (>60 ml/min/1.73 sqM); Potassium 3.7 mmol/L (3.5-5.1); Sodium 139 mmol/L (137-145)
[2021-06-08 17:46] LABS: Glucose,Whole Blood 105 mg/dL (75-99)
[2021-06-08] MEDS: INSULIN ASPART (NovoLOG) 100 UNIT/ML VIAL SQ SCH (18:26)
[2021-06-08] MEDS: cloNIDine HCL 0.1 MG TAB PO SCH (19:57)
[2021-06-08] MEDS ORDERED: ATORVASTATIN 20 MG TAB PO SCH (21:00)
[2021-06-08] MEDS ORDERED: TOPIRAMATE 100 MG TAB PO SCH (21:00)
[2021-06-08 21:04] LABS: Glucose,Whole Blood 144 mg/dL (75-99)
[2021-06-09 07:46] LABS: African American GFR (CKD) >90 (>60 ml/min/1.73 sqM); Anion Gap 7 mmol/L; Blood Urea Nitrogen 8 mg/dL (7-17); Calcium 8.5 mg/dL (8.4-10.2); Carbon Dioxide 22 mmol/L (22-30); Chloride 111 mmol/L (98-107); Glucose 151 mg/dL (74-99); Non-African American GFR(CKD) >90 (>60 ml/min/1.73 sqM); Potassium 4.4 mmol/L (3.5-5.1); Sodium 140 mmol/L (137-145)
[2021-06-09] MEDS: levETIRAcetam 500 MG TAB PO SCH (07:56)
[2021-06-09] MEDS: ASPIRIN 81 MG PO SCH (07:56)
[2021-06-09] MEDS: metFORMIN 500 MG TAB PO SCH (07:57)
[2021-06-09] MEDS: lisinopriL 20 MG TAB PO SCH (07:57)
[2021-06-09] MEDS: METOPROLOL TARTRATE 50 MG TAB PO SCH (07:57)
[2021-06-09] MEDS: FUROSEMIDE 20 MG TAB PO SCH (07:57)
[2021-06-09] MEDS: glipiZIDE 5 MG TAB PO SCH (07:58)
[2021-06-09] MEDS: carBAMazepine 300 MG CPMP.12HR PO SCH (07:58)
[2021-06-09] MEDS: amLODIPine 10 MG TAB PO SCH (07:58)
[2021-06-09] MEDS: SERTRALINE 100 MG TAB PO SCH (07:58)
[2021-06-09] MEDS: hydrALAZINE HCL 50 MG TAB PO SCH (07:59)
[2021-06-09 08:03] LABS: Glucose,Whole Blood 150 mg/dL (75-99)
[2021-06-09] MEDS: INSULIN ASPART (NovoLOG) 100 UNIT/ML VIAL SQ SCH ×2 (08:10→08:12)
[2021-06-09 08:20] LABS: Basophils # (A) 0.1 k/uL (0-0.2); Basophils % (A) 1 %; Eosinophils # (A) 0.3 k/uL (0-0.7); Eosinophils % (A) 5 %; HCT 36.3 % (34.0-46.0); HGB 12.1 gm/dL (11.4-16.0); Lymphocytes # (A) 2.7 k/uL (1.0-4.8); Lymphocytes % (A) 40 %; MCHC 33.4 g/dL (31.0-37.0); MCV 89.8 fL (80.0-100.0); Mean Platelet Volume 8.2; Monocytes # (A) 0.4 k/uL (0-1.0); Monocytes % (A) 5 %; Neutrophils # (A) 3.3 k/uL (1.3-7.7); Neutrophils % (A) 48 %; Platelet Count 255 k/uL (150-450); RBC 4.04 m/uL (3.80-5.40); RDW 12.8 % (11.5-15.5); WBC 6.9 k/uL (3.8-10.6)
[2021-06-09 08:55] VITALS: TEMP 98
--- NOTE | 2021-06-09 09:45 | P.PN ---
Subjective Progress Note Date: 06/09/21 The patient is seen at bedside and states she is doing well and denies any seizure-like activities since in the hospital. She denies of any new focal weakness, numbness, visual disturbance. Per the patient's nurse no seizure-like activity since in the hospital. Objective - Vital Signs Vital signs: Vital Signs Temp 98.0 F 06/09/21 07:00 Pulse 61 06/09/21 07:00 Resp 16 06/09/21 07:00 BP 165/81 06/09/21 07:00 Pulse Ox 97 06/09/21 07:00 Intake & Output 06/08/21 06/09/21 06/09/21 18:59 06:59 18:59 Intake Total 476 1999 Balance 476 1999 Intake: Intake, IV Titration 1300 Amount Sodium Chloride 0.9% 1, 1300 000 ml @ 100 mls/hr IV . Q10H YESI Rx#:[id number] Oral 476 700 Other: Voiding Method Toilet Diaper # Voids 3 3 - Exam GENERAL: The patient is lying in bed and is not in acute distress. NEUROLOGICAL: Higher mental function: The patient is awake, alert, oriented to self, place and time. Patient is following commands. No aphasia and no neglect. Cranial nerves: The pupils are round, equal and reactive to light and accommodation. Visual nguyen are full to confrontation throughout. Extraocular movement is intact no nystagmus is noted. Facial sensation is normal to touch throughout. The facial strength is normal throughout. Hearing is moderately decreased bilaterally to hand rub. Tongue is midline and moved [id number] without any difficulty. No dysarthria is noted. Shoulder shrug is normal bilaterally. Motor: Gait is deferred. The strength is 5 over 5 throughout. Normal tone and bulk. Cerebellum: Normal finger to nose heel to evans bilaterally. Sensation: Sensation is normal to touch throughout. Reflexes (right/left):2+ throughout. Plantars are downgoing bilaterally. - Labs CBC & Chem 7: 06/09/21 07:06 06/09/21 07:06 Labs: Abnormal Lab Results - Last 24 Hours (Table) 06/08/21 06/08/21 06/08/21 Range/Units 12:13 16:37 16:37 Chloride (98-107) mmol/L BUN 6 L (7-17) mg/dL Creatinine 0.46 L (0.52-1.04) mg/dL Glucose 101 H (74-99) mg/dL POC Glucose (mg/dL) 112 H (75-99) mg/dL Plasma Lactic Acid Miles 3.2 H* (0.7-2.0) mmol/L 06/08/21 06/08/21 06/08/21 Range/Units 17:40 19:29 21:01 Chloride (98-107) mmol/L BUN (7-17) mg/dL Creatinine (0.52-1.04) mg/dL Glucose (74-99) mg/dL POC Glucose (mg/dL) 105 H 144 H (75-99) mg/dL Plasma Lactic Acid Miles 2.8 H* (0.7-2.0) mmol/L 06/09/21 06/09/21 Range/Units 07:06 08:01 Chloride 111 H (98-107) mmol/L BUN (7-17) mg/dL Creatinine 0.46 L (0.52-1.04) mg/dL Glucose 151 H (74-99) mg/dL POC Glucose (mg/dL) 150 H (75-99) mg/dL Plasma Lactic Acid Miles (0.7-2.0) mmol/L Assessment and Plan Assessment: ?Breakthrough seizure and seems provoked due to medication noncompliance and stress related (she felt generalized weakness but denies any urinary or bowel incontinence, denies any loss of consciousness and EMS suspected the patient had seizures) History of seizures and patient is on multiple antiepileptic drugs Traumatic brain (in the third grade) History of brain aneurysm Accelerated hypertension and presented with a blood pressure in the 200s over 99 History of diabetes and presented in the sugar in the 200s History of stroke History of hyperlipidemia History of breast cancer status post right mastectomy Plan: * Patient was continued on her home dose of Keppra 1 g twice a day, carbamazepine 600 mg twice a day and Topamax 100 mg daily at bedtime. * I highly recommended the patient to follow-up with the neurologist as an outpatient and see if her medication can be titrated down slowly if she has no further seizure. I feel like the patient is on multiple antiepileptic with contact can cause confusion. * Patient had a recent EEG about a week and a half ago and she stated that it was normal. She is back to baseline currently and EEG is not warranted at this time. I ordered 2 1/2 hours ambulatory EEG (will be coordinated by process tech) and consider epilepsy monitoring unit (EMU) to capture the patient's episodes to truly differential whether episodes are epileptic or nonepileptic in nature. * Continue neuro checks. * On seizure precaution seizure pads * Regarding her history of brain aneurysm the patient refused any the further vascular imaging during this admission and stated that she will follow-up with her neurologist as outpatient for surveillance imaging. * We'll defer the rest of the medical management to the primary team. * Upon discharge the patient needs to follow-up with her neurologist (Dr. Molina) as an outpatient. Patient was notified that per the [place] DMV that she cannot drive for 6 month until Z seizure-free, to avoid heights, swimming unassisted and the avoid use of heavy machinery. Plan is discussed with the patient nurse. The patient is clear from a neurological perspective. Kyaw Carballo M.D. Neuro-hospitalist Time with Patient: Less than 30
[2021-06-09] MEDS: SODIUM CHLORIDE 0.9% 1,000 ML IV SCH (10:33)
[2021-06-09] MEDS: cloNIDine HCL 0.1 MG TAB PO SCH (10:33)
[2021-06-09 12:21] LABS: Glucose,Whole Blood 74 mg/dL (75-99)
[2021-06-09 12:36] VITALS: BP 143/63; PULSE 71
--- NOTE | 2021-06-09 12:49 | P.DS ---
Providers Date of admission: 06/08/21 15:24 Expected date of discharge: 06/09/21 Attending physician: Flynn Siegel Consults: 06/07/21 19:37 Consult Physician Routine Consulting Provider: Kyaw Carballo Consult Reason/Comments: Seizure Do you want consulting provider notified?: Yes Primary care physician: Flynn Siegel Dictation on discharge summary date of service 06/09/[address] Nina Montero [facility] Final diagnosis: #1 breakthrough seizure with a history of seizure disorder on multiple medication to follow-up with Dr. Molina neurologist. #2 lactic acid elevation, currently normalized with IV fluid, probably with the associated with the seizures. #3 diabetes mellitus type 2, currently controlled with by mouth C blood glucose 74 this morning did not require insulin. #4 mild dehydration, patient hydrated with normal saline. #5 hypertension with hypertensive heart disease currently fairly controlled with added clonidine 0.1 mg once a day. #6 bilateral mastectomy for breast cancer. #7 history of brain aneurysm with normal computed tomography scan in addition. #8 seen by neurology hospitalist Dr. Mark Carballo who canceled the EEG, patient reported that she had EEG couple weeks ago at her primary neurologist. #9 degenerative osteoarthritis of the joint. #10 metabolic acidosis, lactic acid elevation to 3.2 with hydration resulted to 1.7 which is normal Consultation: Neurologist hospitalist Dr. Mark Fisher. Presentation to the emergency room Patient brought by EMS with seizure disorder. Hospital course: Patient admitted to the hospital, seen by the neurology hospitalist Dr. Mark Fisher he cleared her up for discharge after observation with no evidence of recurrence of seizure and advised that she continue with her primary neurologist as outpatient Dr. Molina. Post this discharge. The patient found that she had metabolic acidosis and lactic acid was obtained which was elevated as well as her blood pressure was elevated with accelerated hypertension not well controlled and the blood sugar was not well controlled. Medication adjusted and adding clonidine 0.1 mg once a day. On discharge: Blood pressure is fairly well controlled, blood glucose POC was 74 no symptoms of hypoglycemia and no insulin was given. She has no seizure with his observation on the floor and cleared by the neurologist for discharge. On exam: Patient conscious alert oriented 3 she wants to go home as well she denied any seizure disorder on this hospitalization other than what they thought in the ER. The head was normocephalic and atraumatic pupils equal reactive conjunctiva was pink sclera was nonicteric. Oropharynx able to eat and swallow with no dysphagia. Neck was supple no JVD no thyromegaly no lymphadenopathy trachea midline. Chest was clear to auscultation and percussion and there is absence of the breast right and left due to surgery with history of cancer of the breast. The heart: Regular sinus rhythm however she had hypertension probably with hypertensive heart disease. Was uncontrolled in spite of multiple medication and we added that the clonidine until we seen in the office in the is to. Abdomen soft positive bowel sounds no organ enlargement. Extremities no edema and positive pulses Neurologically stable general condition, moving 4 extremities, no lateralizing sign, pupil is equal reactive, and no history of tremor or seizures during the hospitalization. Assessment breakthrough seizure, stable general condition to be discharged home today. Neurologist discussed with her the no driving in details and recheck in loss. Plan for follow-up with Dr. Molina. And follow-up with Dr. Wood next week 3-5 days. Patient Condition at Discharge: Stable Plan - Discharge Summary Discharge Rx Participant: Yes New Discharge Prescriptions: New cloNIDine HCL [Catapres] 0.1 mg PO DAILY #30 tab Continue levETIRAcetam [Keppra] 1,000 mg PO BID glipiZIDE [Glucotrol] 5 mg PO AC-BID carBAMazepine [Carbatrol] 600 mg PO BID Atorvastatin [Lipitor] 20 mg PO HS Sertraline [Zoloft] 100 mg PO DAILY Ibuprofen [Motrin] 800 mg PO Q8H PRN PRN Reason: Pain metFORMIN HCL [Glucophage] 1,000 mg PO BID Topiramate [Topamax] 100 mg PO HS Metoprolol Tartrate [Lopressor] 50 mg PO BID Meclizine [Antivert] 25 mg PO DAILY PRN PRN Reason: DIZZINESS hydrALAZINE HCL [Apresoline] 100 mg PO TID Furosemide [Lasix] 20 mg PO DAILY Enalapril [Vasotec] 20 mg PO BID Diphenox-Atrop 2.5-0.025 mg [Lomotil] 1 tab PO TID PRN PRN Reason: Loose Stool amLODIPine [Norvasc] 10 mg PO DAILY Ondansetron [Zofran] 4 mg PO DAILY PRN PRN Reason: Nausea Aspirin EC [Ecotrin Low Dose] 81 mg PO DAILY Discharge Medication List carBAMazepine [Carbatrol] 600 mg PO BID 12/16/13 [History] glipiZIDE [Glucotrol] 5 mg PO AC-BID 12/16/13 [History] levETIRAcetam [Keppra] 1,000 mg PO BID 12/16/13 [History] Atorvastatin [Lipitor] 20 mg PO HS 04/21/14 [History] Sertraline [Zoloft] 100 mg PO DAILY 12/16/18 [History] Ibuprofen [Motrin] 800 mg PO Q8H PRN 06/30/20 [History] Aspirin EC [Ecotrin Low Dose] 81 mg PO DAILY 06/07/21 [History] Diphenox-Atrop 2.5-0.025 mg [Lomotil] 1 tab PO TID PRN 06/07/21 [History] Enalapril [Vasotec] 20 mg PO BID 06/07/21 [History] Furosemide [Lasix] 20 mg PO DAILY 06/07/21 [History] Meclizine [Antivert] 25 mg PO DAILY PRN 06/07/21 [History] Metoprolol Tartrate [Lopressor] 50 mg PO BID 06/07/21 [History] Ondansetron [Zofran] 4 mg PO DAILY PRN 06/07/21 [History] Topiramate [Topamax] 100 mg PO HS 06/07/21 [History] amLODIPine [Norvasc] 10 mg PO DAILY 06/07/21 [History] hydrALAZINE HCL [Apresoline] 100 mg PO TID 06/07/21 [History] metFORMIN HCL [Glucophage] 1,000 mg PO BID 06/07/21 [History] cloNIDine HCL [Catapres] 0.1 mg PO DAILY #30 tab 06/09/21 [Rx] Follow up Appointment(s)/Referral(s): Flynn Siegel MD [Primary Care Provider] - 1-2 days Patient Instructions/Handouts: Seizure/Epilepsy Discharge Instructions & Follow-Up
== END 2021-06-09 13:24 | disposition home or self-care (01) | DRG 101 ==
LOC: EC 17:19 → 6NMEDSUR 19:40 → OBSVTOIN 06-08 15:24
PROVIDERS: ADMIT Internal Medicine; ATTEND Internal Medicine
DX: G40.909 Epilepsy, unspecified, not intractable, without status epilepticus (principal); E87.2 Acidosis; I11.9 Hypertensive heart disease without heart failure; E11.9 Type 2 diabetes mellitus without complications; Z20.822 Contact with and (suspected) exposure to COVID-19; T42.6X6A Underdosing of other antiepileptic and sedative-hypnotic drugs, initial encounter; E87.6 Hypokalemia; E78.5 Hyperlipidemia, unspecified; E86.0 Dehydration; H81.09 Meniere's disease, unspecified ear; F41.9 Anxiety disorder, unspecified; F32.9 Major depressive disorder, single episode, unspecified; M54.9 Dorsalgia, unspecified; K52.9 Noninfective gastroenteritis and colitis, unspecified; M19.90 Unspecified osteoarthritis, unspecified site; Z79.82 Long term (current) use of aspirin; Z79.84 Long term (current) use of oral hypoglycemic drugs; Z79.899 Other long term (current) drug therapy; Z63.79 Other stressful life events affecting family and household; Z86.73 Personal history of transient ischemic attack (TIA), and cerebral infarction without residual deficits; Z90.710 Acquired absence of both cervix and uterus; Z90.13 Acquired absence of bilateral breasts and nipples; Z85.3 Personal history of malignant neoplasm of breast; Z85.42 Personal history of malignant neoplasm of other parts of uterus; Z85.43 Personal history of malignant neoplasm of ovary; Z98.42 Cataract extraction status, left eye; Z98.41 Cataract extraction status, right eye; Z87.820 Personal history of traumatic brain injury; Z90.49 Acquired absence of other specified parts of digestive tract; Z90.89 Acquired absence of other organs; Z87.19 Personal history of other diseases of the digestive system; Z98.891 History of uterine scar from previous surgery; Z87.448 Personal history of other diseases of urinary system; Z87.01 Personal history of pneumonia (recurrent); Z86.79 Personal history of other diseases of the circulatory system; Z98.890 Other specified postprocedural states; Z80.3 Family history of malignant neoplasm of breast
CPT/HCPCS: 36415; 70450; 80048; 80053; 81003; 83605; 83735; 84145; 85025; 87635; 93005; 96361; 96374; 99285

== ENCOUNTER → 2021-08-13 | Outpatient (CLI) | payer MEDICARE, BC ==
[2021-08-13 12:52] LABS: Appearance,Urine Clear (Clear); Bacteria,Urine Few /hpf; Bilirubin,Urine Negative (Negative); Blood,Urine Negative (Negative); Color,Urine Yellow; Glucose,Urine (UA) 3+ (Negative); Ketones,Urine Negative (Negative); Leukocyte Esterase,Urine Trace (Negative); Mucus,Urine Rare /hpf; Nitrite,Urine Negative (Negative); PH, Urine 5.5 (5.0-8.0); Protein,Urine Trace (Negative); RBC,Urine <1 /hpf (0-5); Specific Gravity,Urine 1.026 (1.001-1.035); Squamous Epithelial Cell,Urine 5 /hpf (0-4); Urobilinogen,Urine <2.0 mg/dL (<2.0); WBC,Urine 4 /hpf (0-5)
[2021-08-13 20:22] LABS: Basophils # (A) 0.03 X 10*3/uL (0.00-0.10); Basophils % (A) 0.6 %; Eosinophils # (A) 0.43 X 10*3/uL (0.04-0.35); Eosinophils % (A) 8.5 %; HCT 39.7 % (37.2-46.3); HGB 11.9 g/dL (12.0-15.0); Lymphocytes # (A) 1.68 X 10*3/uL (0.90-5.00); Lymphocytes % (A) 33.1 %; MCH 28.3 pg (27.0-32.0); MCV 94.5 fL (80.0-97.0); Mean Platelet Volume 9.1 fL (9.5-12.2); Monocytes # (A) 0.29 X 10*3/uL (0.20-1.00); Monocytes % (A) 5.7 %; Neutrophils # (A) 2.63 X 10*3/uL (1.80-7.70); Neutrophils % (A) 51.7 %; Platelet Count 316 X 10*3/uL (140-440); RDW 13.7 % (11.5-14.5); WBC 5.08 X 10*3/uL (4.50-10.00)
[2021-08-13 21:16] LABS: Erythrocyte Sedimentation Rate 13 mm/Hr (0-30)
[2021-08-14 01:46] LABS: ALT 12 U/L (8-44); AST 11 U/L (13-35); African American GFR (CKD) 106.5 (60.0-200.0); Albumin 4.1 g/dL (3.8-4.9); Albumin/Globulin Ratio 2.07 (1.60-3.17); Alkaline Phosphatase 132 U/L (41-126); Blood Urea Nitrogen 8.7 mg/dL (9.0-27.0); Calcium 8.5 mg/dL (8.7-10.3); Carbon Dioxide 24.1 mmol/L (20.0-27.5); Chloride 103 mmol/L (96-109); Chol/HDL Ratio 2.53 Ratio; Glucose 158 mg/dL (70-110); LDL Cholesterol,Calculated 77.4 mg/dL (0.0-131.0); Non-African American GFR(CKD) 91.9 (60.0-200.0); Potassium 3.7 mmol/L (3.5-5.5); Sodium 142 mmol/L (135-145); Total Bilirubin <0.20 mg/dL (0.30-1.20); Uric Acid 2.4 mg/dL (2.9-7.7); VLDL Calculation 19.88 mg/dL (5.00-40.00)
[2021-08-14 02:22] LABS: C Reactive Protein <0.30 mg/dL (0.00-0.80)
[2021-08-14 02:35] LABS: Creatine Kinase 34 U/L (26-186); Magnesium 1.4 mg/dL (1.5-2.4); Phosphorus 2.8 mg/dL (2.4-5.1)
== END | disposition home or self-care (01) ==
LOC: LABWHC1 09:30
PROVIDERS: ATTEND Nurse Practitioner Adult Health
DX: Z00.00 Encounter for general adult medical examination without abnormal findings (principal); I10 Essential (primary) hypertension; E78.2 Mixed hyperlipidemia; E11.65 Type 2 diabetes mellitus with hyperglycemia; E78.5 Hyperlipidemia, unspecified; E55.9 Vitamin D deficiency, unspecified; D64.9 Anemia, unspecified; G40.909 Epilepsy, unspecified, not intractable, without status epilepticus; R80.9 Proteinuria, unspecified
CPT/HCPCS: 36415; 80053; 80061; 81001; 82043; 82306; 82550; 82570; 83036; 83735; 84100; 84443; 84550; 85025; 85652; 86140

== ENCOUNTER → 2021-09-26 | Outpatient (CLI) | payer MEDICARE, BC ==
[2021-09-26 19:35] LABS: C Reactive Protein <0.30 mg/dL (0.00-0.80); GGT 204 U/L (0-38)
[2021-09-26 20:01] LABS: ALT 37 U/L (8-44); AST 19 U/L (13-35); Albumin 4.4 g/dL (3.8-4.9); Alkaline Phosphatase 145 U/L (41-126); Bilirubin, Conjugated <0.20 mg/dL (0.20-0.40); Globulin 2.2 g/dL (1.6-3.3); Total Bilirubin <0.15 mg/dL (0.30-1.20); Total Protein 6.6 g/dL (6.2-8.2)
[2021-09-26 20:25] LABS: Hepatitis A Antibody IgM Nonreactive (Nonreactive); Hepatitis B Core IgM Nonreactive (Nonreactive); Hepatitis B Surface Antigen Nonreactive (Nonreactive); Hepatitis C IgG Antibody Nonreactive (Nonreactive)
== END | disposition home or self-care (01) ==
LOC: LABWHC1 11:55
PROVIDERS: ATTEND Internal Medicine
DX: R74.8 Abnormal levels of other serum enzymes (principal)
CPT/HCPCS: 36415; 80074; 80076; 82977; 85652; 86140; 87086

== ENCOUNTER → 2021-10-05 | Outpatient (CLI) | payer MEDICARE, BC ==
--- NOTE | 2021-10-05 09:03 | US ---
EXAMINATION TYPE: US abdomen complete DATE OF EXAM: 10/05/2021 COMPARISON: NONE CLINICAL HISTORY: R16.2 R94.5. abnormal liver enzymes, hepatosplenomegaly. EXAM MEASUREMENTS: Liver Length: 15.0 cm Gallbladder Wall: Surgically absent CBD: 0.9 cm Spleen: 10.8 cm Right Kidney: 12.6 x 4.4 x 4.9 cm Left Kidney: 12.7 x 5.0 x 5.3 cm Pancreas: visualized portions wnl Liver: wnl Gallbladder: Surgically absent CBD: measures 0.9 cm Spleen: wnl Right Kidney: No hydronephrosis or masses seen Left Kidney: No hydronephrosis or masses seen Upper IVC: wnl Abd Aorta: wnl The liver is homogenous. The intrahepatic portion of the IVC and proximal abdominal aorta are within normal limits. Common bile duct is unremarkable. The visualized portions of the pancreas are homog enous. The spleen is unremarkable. Kidneys are symmetric and free of hydronephrosis. No renal lesi ons are seen. IMPRESSION: No distinct abnormality appreciated.
== END | disposition home or self-care (01) ==
LOC: RADUSWWP 08:29
PROVIDERS: ATTEND Internal Medicine
DX: R16.2 Hepatomegaly with splenomegaly, not elsewhere classified (principal); R94.5 Abnormal results of liver function studies
CPT/HCPCS: 76700

== ENCOUNTER 2021-10-11 06:09 | Inpatient (IN) | payer MEDICARE, BC ==
[2021-10-08 16:07] VITALS: BMI 32.9
[~2021-10-11 06:09] MED LIST changes: +ACETAMINOPHEN TAB 500 MG TAB PO PRN; -DEXAMETHASONE SOD PHOSPHATE 10 MG/ML 1 ML VIAL IV ONE; +DEXAMETHASONE SOD PHOSPHATE 4 MG/ML 1 ML VIAL IV ONE; +GABAPENTIN 300 MG CAP PO PRN; -HEPARIN SODIUM,PORCINE 5,000 UNIT/ML 1 ML VIAL SQ ONE; +LIDOCAINE 1% (10MG/ML) FOR IV START INTRADERMA PRN; +MELOXICAM 7.5 MG TAB PO PRN; +MIDAZOLAM 2 MG/2 ML VIAL IV PRN; +ONDANSETRON 4 MG/2 ML VIAL IVP PRN; -Pre Op ABX Message 1 EACH MISC MISCELLANE ONE; +TRANEXAMIC ACID 1,000 MG in SODIUM CHLORIDE 0.9% 100 ML IVPB PRN
[2021-10-11] MEDS: LACTATED RINGERS 1,000 ML IV SCH ×3 (06:45→22:25)
[2021-10-11] MEDS ORDERED: HYDROmorphone 0.5 MG/0.5 ML SYRINGE IVP PRN (07:00)
[2021-10-11 07:01] LABS: Glucose,Whole Blood 199 mg/dL (75-99)
[2021-10-11] MEDS ORDERED: diphenhydrAMINE 50 MG/ML 1 ML VIAL ONE (07:50)
[2021-10-11] MEDS ORDERED: MIDAZOLAM 2 MG/2 ML VIAL ONE (08:05)
[2021-10-11] MEDS ORDERED: PROPOFOL 10 MG/ML 20 ML VIAL IV ONE (08:05)
[2021-10-11] MEDS ORDERED: LIDOCAINE 1% INJ 10MG/ML (20 ML MDV) ONE (08:05)
[2021-10-11] MEDS ORDERED: DEXAMETHASONE SOD PHOSPHATE 4 MG/ML 1 ML VIAL ONE (08:05)
[2021-10-11] MEDS ORDERED: ROPIVACAINE 5 MG/ML 30 ML VIAL ONE (08:05)
[2021-10-11] MEDS ORDERED: ceFAZolin 3,000 MG in SODIUM CHLORIDE 0.9% IRRIGATIO 3,000 ML IRRIGATION ONE (08:35)
[2021-10-11] MEDS ORDERED: traMADol 50 MG TAB PO PRN (10:08)
[2021-10-11] MEDS ORDERED: ONDANSETRON 4 MG/2 ML VIAL IVP PRN (10:08)
[2021-10-11] MEDS ORDERED: HYDROcodone/APAP 5-325MG 1 EACH TAB PO PRN (10:08)
[2021-10-11] MEDS ORDERED: NALOXONE 0.4 MG/ML 1 ML VIAL IV PRN (10:08)
[2021-10-11] MEDS ORDERED: HYDROcodone/APAP 10-325MG 1 EACH TAB PO PRN ×2 (10:08→13:30)
[2021-10-11] MEDS ORDERED: MAGNESIUM HYDROXIDE 2,400 MG/10 ML CUP PO PRN (10:08)
[2021-10-11] MEDS ORDERED: bisacodyL 10 MG SUPP RECTAL PRN (10:08)
[2021-10-11] MEDS ORDERED: NA PHOS,M-B/NA PHOS,DI-BA 133 ML ENEMA RECTAL PRN (10:08)
[2021-10-11] MEDS ORDERED: TEMAZEPAM 15 MG CAP PO PRN (10:08)
[2021-10-11] MEDS ORDERED: ACETAMINOPHEN TAB 325 MG TAB PO PRN (10:08)
[2021-10-11] MEDS ORDERED: HYDROmorphone 1 MG/ML 1 ML SYRINGE IVP PRN (10:08)
[2021-10-11] MEDS ORDERED: HYDROmorphone 0.2 MG/1 ML SYRINGE IVP PRN (10:08)
[2021-10-11] MEDS ORDERED: ROPIVACAINE 0.2%-NS ON-Q PUMP 2 MG/ML EACH MISCELLANE ONE (10:30)
[2021-10-11 11:03] LABS: Glucose,Whole Blood 194 mg/dL (75-99)
[2021-10-11] MEDS ORDERED: LACTATED RINGERS 1,000 ML IV ONE (11:33)
--- NOTE | 2021-10-11 11:39 | OP ---
OPERATIVE REPORT DATE OF PROCEDURE: 10/11/2021. SURGEON: Adrián Diaz MD. ASSOCIATE DIRECTOR FINANCE: Jeovanny FRAIRE. PREOPERATIVE DIAGNOSIS: Left knee osteoarthrosis. POSTOP DIAGNOSIS: Left knee osteoarthrosis. OPERATION: Left total knee arthroplasty. ANESTHESIA: Spinal with sedation. ESTIMATED BLOOD LOSS: 100 mL. TOURNIQUET: Tourniquet time was 54 minutes at 250 mmHg. COMPLICATIONS: None apparent. DRAINS: None. DISPOSITION: Postanesthesia care unit. INDICATIONS: Shelli is a very pleasant 66-year-old female with longstanding history of left knee pain. History and physical examination are consistent with advanced left knee osteoarthrosis. She has been through significant nonoperative management up to this point. Further treatment options were discussed and she has decided to go forward with left total knee arthroplasty. The risks of procedure were discussed with her in detail. These risks included, but were not limited to risk of infection, nerve damage, bleeding, pain, and a small risk of deep vein thrombosis which could lead to fatal pulmonary embolism. There is also risk of loosening of the implants which could require revision operation. The patient understands these risks. All of her questions were answered to her satisfaction. Appropriate informed consent was obtained. DESCRIPTION OF THE PROCEDURE: The patient was identified in the preoperative holding area. Surgical site was marked by both the patient and myself. She was given 2 grams of Ancef IV for prophylactic purposes. She was then transferred to the operative suite. She was placed supine on the operative table. Spinal anesthetic was then administered and dosed per the anesthesia without apparent complication. An examination under anesthesia was then performed. The patient was 2-3 degrees shy of full extension. She had 100 degrees of flexion, medial collateral ligament, lateral collateral ligament and posterior cruciate ligaments were stable. Tourniquet was then placed high on the left upper thigh well-padded in preparation. The patient's left lower extremity was then prepped and draped in usual sterile fashion. Standard surgical pause undertaken to ensure that we were operating on the correct site and that appropriate preoperative antibiotics were given. All staff in the room were in agreement. We proceeded. The outlines of the patella marked with the surgical pen. A planned 12 cm vertical incision centered over the patella was marked with a surgical pen. Leg was then exsanguinated with Esmarch dressing. The knee was then flexed and the tourniquet inflated to 250 mmHg. The total tourniquet time for the procedure was 54 minutes. Incision was then made with a 10 blade scalpel. Dissection was carried down sharply overlying fascia. Great care was taken to minimize the skin flaps. The knee was then exposed using a standard medial parapatellar approach. A small cuff of quadriceps tendon was then left for suturing. She was in a bit of varus preoperatively. A standard medial release was then made. Superficial medial collateral ligament dissected off the bone around the posterior aspect of the proximal tibia. The medial meniscus was then excised as well. The lateral meniscus was also released anteriorly. The leg was then externally rotated. The patella was everted. The knee was flexed. Retractors were then placed to protect the collateral ligaments. I then proceeded to remove the infrapatellar fat pad. This was excised sharply tangentially with fibers of the patellar tendon. I then proceeded to remove the peripheral osteophytes. This was done with a rongeur. I then proceeded with the distal femoral resection. She did have near full extension. A planned 9 mm resection was then done. The femoral canal was then entered in the midline of the femur approximately 10 mm anterior to the origin of the posterior cruciate ligament. The erick was then advanced down the center of the femur and placed intramedullary. Based on the preoperative radiographs, the angle between the anatomic and mechanical axis of the femur was approximately 4-5 degrees. The valgus angle of the distal femoral cutting guide was then set at 4 degrees for the left knee. The distal femoral cutting guide was then advanced down intramedullary erick. This was seated firmly against the femur. Then as mentioned planned to take 9 mm off the distal femur. The cutting block was then secured onto the femur with pins. The jig was then removed. The distal femoral cut was made through the slot of the block. The pins then removed. The distal femoral cutting block was removed. The accuracy of the distal femoral cuts was checked with 2 flat bars. I then proceeded with femoral sizing. Posterior referencing sizing guide was held firmly against the resected distal surface of the femur. The posterior condyles were resting on the posterior plane of the guide. The sizing guide was then placed on the anterior femur. The size was measured as a size 7. I then assessed for femoral rotation. Plan was for 3 degrees external rotation. Three degrees of external rotation was placed onto the jig. These holes were then marked. I then confirmed the rotation by 3 separate methods. This was done using epicondylar axis as well as Whitesides line and posterior referencing. It was deemed that the external rotation was proper. Then went forward and placed the femoral cutting block. This was placed over the previously placed pin holes. The Woody wing was then placed on the anterior slots to ensure that we would not notch the anterior femur with the anterior femoral cut. I then proceeded with the anterior femoral cut. This was flush with the anterior cortex of the femur. The posterior cuts were then made followed by the anterior chamfer cut, posterior chamfer cut. The cutting block was then removed. Throughout the resection, the collateral ligaments were protected with retractors. I then placed a trial size 7 femur. It was slightly wide with a narrow fit very nicely and it fit flush with the distal end of the femur. The drill holes were then made. I then proceeded with the tibial cut. I planned for cruciate retaining knee. The guide was placed and set for varus valgus and for slope. The height set for approximate 2 mm resection from the medial tibial plateau which was the lower side. I was happy with the alignment and the amount of resection. The cutting block was then pinned to the proximal tibia. The alignment erick was removed. The proximal tibia was resected with a reciprocating saw. Again, this was done with retractors protecting the collateral ligaments as well as the posterior cruciate ligament. I then proceeded to evaluate the flexion extension gaps. A 10 mm block was then placed. The flexion and extension gaps were equal. I then proceeded with resection of the posterior osteophytes. She had very minimal posterior osteophytes. This is done using a curved osteotome. This resected the posterior osteophytes and posterior capsule stripping was done off the posterior aspect of the femur at this time. The osteophytes were then removed. I then proceeded with resection of the patella. The thickness of the patella was measured using the caliper. The thickness was 22 mm. The thickness of the anticipated patellar dome was taken into account. Resection was then performed and confirmed to be equal in 4 quadrants using a caliper. Approximately 14 mm of bone remained after resection. A 29 x 8 mm standard patellar trial was then placed. The holes were drilled. The trial was then placed. I then proceeded with resizing tibial plate. A size C tibial plate fit very nicely. I then placed the trial femur on the tibial tray and patellar button. A 10 mm trial tibial insert was also placed. The components fit very nicely. She had full extension and flexion. The extension and flexion gaps were equal and stable to both varus and valgus stress. The patella tracked appropriately. The tibial tray rotation was then marked with a Bovie. This was externally rotated properly. I then proceeded with tibial preparation. First drilled the femoral holes. Removed femoral component. The tibial tray was then set for proper external rotation as well as mediolateral placement onto the tibia. It was then pinned into place. I then proceeded with punching the keel. I then decided to proceed with cementing of all of our components. The knee was thoroughly irrigated with sterile saline solution via pulse lavage. The lateral geniculate artery was identified and cauterized. All blood was removed from the bone of the tibia, femur and patella with pulse lavage. We then proceeded with cementing. Two packs of antibiotic bone cement was prepared on the back table by the surgical technologist. I then proceed with cementing the tibia first. The cement was impacted in the keel as well as deeply seated into the bone. A second coat of cement was then placed. The tibia was then impacted into place. Excess cement was removed with Roman's and Joker's. I then proceeded with cementing of the femoral component. The femoral component was also cemented using standard technique. Excess cement was removed. A 10 mm trial insert was placed into the knee. It was brought into full extension with a constant axial load placed until the cement had hardened. The patellar component was then cemented. This was held firmly with a compressive device until the cement had dried. When the cement had dried, the knee was taken out of extension. All excess cement was removed from around the prosthesis. I then trialed the knee with a 10 mm insert. Flexion and extension gaps were appropriate. The knee was stable. It came into full extension. I decided to go forward with a 10 mm medial congruent cross-linked cruciate- retaining tibial insert. Polyethylene was then placed on the tibial tray and locked into place. The knee was then reduced. The knee was again further irrigated with sterile saline solution with antibiotic added. The tourniquet was then deflated. Total tourniquet time for the procedure was 54 minutes at 250 mmHg. Final components were Julio Persona size 7, narrow cruciate-retaining femoral component, a size C tibial tray, a 10 mm medial congruent cruciate-retaining polyethylene insert and a 29 x 8 mm patella. I then proceeded with closure. Again, the knee was thoroughly irrigated. The quadriceps and medial retinaculum were reapproximated with #2 Ethibond suture. The extensor mechanism was then closed with a running #2 Quill suture. Subcutaneous tissue was closed with 2-0 Vicryl interrupted suture. The skin was closed with a running 3-0 Quill suture. Dermabond was applied to the incision. Sterile compressive dressing was applied. All sponge and needle counts were deemed correct prior to closure. The patient tolerated procedure without apparent complication. She was transferred recovery room in stable condition. MMODL / IJN: [id number] /
[2021-10-11] MEDS: HYDROmorphone 1 MG/ML 1 ML SYRINGE IVP PRN ×2 (12:04→15:12)
--- NOTE | 2021-10-11 12:22 | XR ---
Left knee HISTORY: Postop 2 views the left knee Patient is status post left knee arthroplasty. There is anatomic alignment. Lucencies present within the soft tissues, there is soft tissue swelling. Irregular density posterior to the knee joint may be postoperative, is indeterminate. IMPRESSION: Orthopedic follow-up as described.
[2021-10-11] MEDS ORDERED: ONDANSETRON 4 MG TAB PO PRN (12:57)
[2021-10-11] MEDS ORDERED: traZODone HCL 100 MG TAB PO PRN (12:57)
--- NOTE | 2021-10-11 13:33 | P.CONS ---
History of Present Illness - Reason for Consult Consult date: 10/11/21 (Medical management) , diabetes mellitus, hypertension Requesting physician: Adrián Diaz (Status post left knee arthroplasty) - Chief Complaint Post left knee arthroplasty, severe pain. - History of Present Illness Consultation requested by Dr. Beck orthopedic associate. Status post left total knee arthroplasty. Reason for the consult physical management with the underlying multiple medical problem. Multiple medication with underlying metabolic and adjusting medication according to her current blood pressure. Medical problem: #1 diabetes mellitus type 2 fluctuating uncontrolled #2 hypertension with hypertensive heart disease. #3 status post left total knee arthroplasty by Dr. fernandez. #4 status post bilateral mastectomy secondary to cancer of the breast. #5 hyper lipidemia #6 vitamin D deficiency #7 history of seizure disorder. Stable on current treatment. #8 mild obesity BMI 33.2 kg/m. Patient seen today evaluated [id number] discussed with the patient. Pain control by orthopedic surgeon. Anticoagulation. Orthopedic surgeon however she is on aspirin 81 mg once a day. No ALLERGY except to 4 chlorhexidine. On the physical exam: Patient is conscious alert oriented 3 she had severe pain in the left knee given Dilaudid. The protocol of orthopedic and the pain was graded 10 over 10. Head was normocephalic and atraumatic, pupil was equal reactive, oropharynx was negative able to swallow and eat naturally neck was supple no JVD no thyromegaly no lymphadenopathy. Chest absence bilateral mammary gland secondary to modified radical prostatectomy for cancer. Heart PMI in the fifth intercostal space outside midclavicular line with cardiomegaly. Abdomen soft positive bowel sounds no complaint of nausea or vomiting postoperative. Extremity: Severe pain in the left knee pulse arthroplasty. The right knee and the right lower extremities is normal with a history of arthritis as well. Pulses of the lower extremities is intact 2+. Neurological he no evidence of lateralizing sign patient able to move the extremities. Assessment: #1 pain. Operative of the left total knee arthroplasty expected and covered with pain medication. #2 her vital sign postoperative stable. #3 hypertension is controlled postoperative #4 diabetes mellitus is monitored. Plan: #1 med rec adjusted and precaution has been added for diabetes and hypertension. #2 insulin to scale 3 times a day before meals meal covered with regular insulin. #3 adjustment of her medication with the blood pressure currently controlled . #4 for further adjustment on a daily basis for her blood pressure and diabetes according to a vital sign and the symptoms #5 anticoagulation. Orthopedic surgeon #6 insulin to scale #7 pain control per orthopedic. Thanks Dr. Diaz for letting me participate in the care of your patient and will follow with you thank you Past Medical History Past Medical History: Cancer, CVA/TIA, Diabetes Mellitus, Hyperlipidemia, Hypertension, Osteoarthritis (OA), Pneumonia, Seizure Disorder Additional Past Medical History / Comment(s): breast/colon/ovarian,uterine CA, no bp in rt arm. told she had a stroke 03/2014 "blood clot in back of head". hx of head injury 3rd grade, pt states she has "slow thinking process"and seizures started after injury. -last seizure POSSIBLE FEBRUARY 2021 , hx back pain. brain aneurysm 2007,menieres disease, LOOSE STOOLS AND INCONTINENT OF URINE- PADS/DEPENDS History of Any Multi-Drug Resistant Organisms: None Reported Past Surgical History: Adenoidectomy, Appendectomy, Bladder Surgery, Bowel Resection, Breast Surgery, Section, Cholecystectomy, Hernia Repair, Hysterectomy, Orthopedic Surgery, Tonsillectomy Additional Past Surgical History / Comment(s): rt mastectomy , manpreet BREAST BX, MANPREET CATARACT SX, BLADDER SUSPENSION, bowel resection x2 d/t ca. Past Anesthesia/Blood Transfusion Reactions: Postoperative Nausea & Vomiting (PONV) Past Psychological History: Anxiety, Depression Additional Psychological History / Comment(s): . Smoking Status: Never smoker Past Alcohol Use History: None Reported Past Drug Use History: None Reported - Past Family History Mother Family Medical History: Cancer Father Family Medical History: Cancer Medications and Allergies Home Medications Medication Instructions Recorded Confirmed Type carBAMazepine [Carbatrol] 600 mg PO BID 12/16/13 10/11/21 History glipiZIDE [Glucotrol] 5 mg PO AC-BID 12/16/13 10/11/21 History levETIRAcetam [Keppra] 1,000 mg PO BID 12/16/13 10/11/21 History Atorvastatin [Lipitor] 20 mg PO HS 04/21/14 10/11/21 History Sertraline [Zoloft] 100 mg PO DAILY 12/16/18 10/11/21 History Ibuprofen [Motrin] 800 mg PO Q8H PRN 06/30/20 10/11/21 History Aspirin EC [Ecotrin Low Dose] 81 mg PO DAILY 06/07/21 10/11/21 History Diphenox-Atrop 2.5-0.025 mg 1 tab PO TID PRN 06/07/21 10/11/21 History [Lomotil] Enalapril [Vasotec] 20 mg PO BID 06/07/21 10/11/21 History Meclizine [Antivert] 25 mg PO DAILY PRN 06/07/21 10/11/21 History Metoprolol Tartrate [Lopressor] 50 mg PO BID 06/07/21 10/11/21 History Ondansetron [Zofran] 4 mg PO DAILY PRN 06/07/21 10/11/21 History amLODIPine [Norvasc] 10 mg PO DAILY 06/07/21 10/11/21 History hydrALAZINE HCL [Apresoline] 100 mg PO TID 06/07/21 10/11/21 History metFORMIN HCL [Glucophage] 1,000 mg PO BID 06/07/21 10/11/21 History cloNIDine HCL [Catapres] 0.1 mg PO BID 10/08/21 10/11/21 History hydroCHLOROthiazide 25 mg PO DAILY 10/08/21 10/11/21 History traZODone HCL 100 mg PO HS PRN 10/08/21 10/11/21 History Allergies Allergy/AdvReac Type Severity Reaction Status Date / Time chlorhexidine Allergy Itching Verified 10/11/21 07:56 Physical Exam Vitals: Vital Signs Temp Pulse Resp BP Pulse Ox 10/11/21 11:24 63 22 115/52 96 10/11/21 10:54 62 20 118/53 94 L 10/11/21 10:39 61 20 117/52 98 10/11/21 10:24 62 20 115/54 97 10/11/21 10:06 97.5 F L 67 16 116/54 95 10/11/21 07:40 56 L 16 115/54 97 10/11/21 07:00 97.0 F L 62 16 111/51 97 Intake and Output 10/10/21 10/11/21 10/11/21 22:59 06:59 14:59 Intake Total 400 651 Output Total 100 Balance 400 551 Intake: IV 400 651 Output: Estimated Blood Loss 100 Other: Weight 82.4 kg Results Labs: Abnormal Lab Results - Last 24 Hours (Table) 10/11/21 10/11/21 Range/Units 06:57 11:00 POC Glucose (mg/dL) 199 H 194 H (75-99) mg/dL
[2021-10-11] MEDS ORDERED: hydrALAZINE HCL 50 MG TAB PO SCH (16:00)
[2021-10-11 16:24] LABS: Glucose,Whole Blood 229 mg/dL (75-99)
[2021-10-11] MEDS: INSULIN ASPART (NovoLOG) 100 UNIT/ML VIAL SQ SCH (17:09)
[2021-10-11] MEDS: glipiZIDE 5 MG TAB PO SCH (17:09)
[2021-10-11] MEDS: HYDROcodone/APAP 10-325MG 1 EACH TAB PO PRN ×2 (17:44→22:22)
[2021-10-11] MEDS: lisinopriL 10 MG TAB PO SCH (20:31)
[2021-10-11] MEDS: METOPROLOL TARTRATE 50 MG TAB PO SCH (20:31)
[2021-10-11] MEDS: SENNOSIDES-DOCUSATE SODIUM 1 EACH TAB PO SCH ×2 (20:31→20:49)
[2021-10-11] MEDS: cloNIDine HCL 0.1 MG TAB PO SCH (20:31)
[2021-10-11] MEDS: ASPIRIN 81 MG PO SCH (20:31)
[2021-10-11] MEDS: ATORVASTATIN 20 MG TAB PO SCH (20:31)
[2021-10-11] MEDS: levETIRAcetam 500 MG TAB PO SCH (20:31)
[2021-10-11] MEDS: carBAMazepine 300 MG CPMP.12HR PO SCH (20:32)
[2021-10-11 20:44] LABS: Glucose,Whole Blood 165 mg/dL (75-99)
[2021-10-11] MEDS ORDERED: lisinopriL 20 MG TAB PO SCH (21:00)
[2021-10-12] MEDS: HYDROmorphone 1 MG/ML 1 ML SYRINGE IVP PRN ×2 (02:55→08:49)
[2021-10-12] MEDS: HYDROcodone/APAP 10-325MG 1 EACH TAB PO PRN (05:26)
[2021-10-12] MEDS: LACTATED RINGERS 1,000 ML IV SCH ×3 (06:42→15:27)
[2021-10-12 06:44] LABS: Glucose,Whole Blood 183 mg/dL (75-99)
[2021-10-12] MEDS ORDERED: diazePAM 2 MG TAB PO PRN (06:54)
[2021-10-12] MEDS ORDERED: oxyCODONE-APAP 7.5-325MG 1 EACH TAB PO PRN (07:00)
[2021-10-12] MEDS: SERTRALINE 100 MG TAB PO SCH (07:44)
[2021-10-12] MEDS: amLODIPine 10 MG TAB PO SCH (07:44)
[2021-10-12] MEDS: cloNIDine HCL 0.1 MG TAB PO SCH (07:44)
[2021-10-12] MEDS: METOPROLOL TARTRATE 50 MG TAB PO SCH ×2 (07:44→20:14)
[2021-10-12] MEDS: lisinopriL 10 MG TAB PO SCH (07:44)
[2021-10-12] MEDS: glipiZIDE 5 MG TAB PO SCH ×2 (07:44→16:50)
[2021-10-12] MEDS: ASPIRIN 81 MG PO SCH ×2 (07:44→20:14)
[2021-10-12] MEDS: levETIRAcetam 500 MG TAB PO SCH ×2 (07:45→20:15)
[2021-10-12] MEDS: carBAMazepine 300 MG CPMP.12HR PO SCH ×2 (07:45→20:14)
[2021-10-12] MEDS: INSULIN ASPART (NovoLOG) 100 UNIT/ML VIAL SQ SCH ×3 (07:46→16:48)
--- NOTE | 2021-10-12 08:53 | P.ANPRN ---
Procedure Note - Anesthesia - Nerve Block Performed Left Adductor Canal Infusion Time Out Performed: Yes Date of Procedure: 10/12/21 Procedure Start Time: :18 Procedure Stop Time: :27 Location of Patient: PreOp Indication: Acute Post-Operative Pain, Requested by Surgeon Sedation Type: Sedate with meaningful contact maintained Preparation: Sterile Prep, Sterile Dressing Position: Supine Catheter: Indwelling Needle Types: Pajunk Needle Gauge: 21 Ultrasound used to visualize needle placement: Yes Ultrasound used to observe medication spread: Yes Blood Aspirated: No Pain Paresthesia on Injection Noted: No Resistance on Injection: Normal Image Stored and Saved: Yes Events: Uneventful and Well Tolerated (ropi .5% 20cc)
--- NOTE | 2021-10-12 08:54 | P.ANPRN ---
Procedure Note - Anesthesia - Nerve Block Performed Left iPack Single Time Out Performed: Yes Date of Procedure: 10/12/21 Procedure Start Time: 07:28 Procedure Stop Time: 07:33 Location of Patient: PreOp Indication: Acute Post-Operative Pain, Requested by Surgeon Sedation Type: Sedate with meaningful contact maintained Preparation: Sterile Prep Position: Supine Needle Types: Pajunk Needle Gauge: 21 Ultrasound used to visualize needle placement: Yes Ultrasound used to observe medication spread: Yes Blood Aspirated: No Pain Paresthesia on Injection Noted: No Resistance on Injection: Normal Image Stored and Saved: Yes Events: Uneventful and Well Tolerated (Ropivacaine 0.5% 25 mL plus dexamethasone 4 mg)
[2021-10-12] MEDS ORDERED: hydroCHLOROthiazide 25 MG TAB PO SCH (09:00)
[2021-10-12] MEDS ORDERED: NON FORMULARY DRUG (Aspirin Ec 81 MG Tablet) PO SCH (09:00)
[2021-10-12 09:16] LABS: Basophils # (A) 0.04 X 10*3/uL (0.00-0.10); Basophils % (A) 0.5 %; Eosinophils # (A) 0.16 X 10*3/uL (0.04-0.35); Eosinophils % (A) 1.9 %; HCT 35.3 % (37.2-46.3); Immature Grans, Automated 0.2 %; Lymphocytes # (A) 1.96 X 10*3/uL (0.90-5.00); Lymphocytes % (A) 23.5 %; MCH 29.5 pg (27.0-32.0); MCHC 31.2 g/dL (32.0-37.0); MCV 94.6 fL (80.0-97.0); Mean Platelet Volume 9.5 fL (9.5-12.2); Monocytes # (A) 0.93 X 10*3/uL (0.20-1.00); Monocytes % (A) 11.2 %; NRBC Per 100 WBC 0 /100 WBCS (0.0-0.0); Neutrophils # (A) 5.23 X 10*3/uL (1.80-7.70); Neutrophils % (A) 62.7 %; Platelet Count 257 X 10*3/uL (140-440); RBC 3.73 X 10*6/uL (4.10-5.20); WBC 8.34 X 10*3/uL (4.50-10.00)
--- NOTE | 2021-10-12 10:03 | P.PN ---
Progress Note - Text 10/12/21 642am 66-year-old female status post total knee replacement by Dr. Diaz. Patient has an On-Q pump for postop pain control with solution running at 8 mL an hour with a VAS of 10. Pain is predominantly located posteriorly as Gy-Chaparro S probably on. The anterior portion of the knee is pain-free. Plan to continue On-Q pump infusion and treat her pain with oral medications
[2021-10-12] MEDS: MULTIVITAMINS, THERA 1 EACH TAB PO SCH (10:39)
[2021-10-12] MEDS: oxyCODONE-APAP 7.5-325MG 1 EACH TAB PO PRN ×3 (10:39→22:46)
--- NOTE | 2021-10-12 10:43 | P.PN ---
Subjective Progress Note Date: 10/12/21 Principal diagnosis: Left TKA Patient is seen at bedside this morning. She is postop day #1 from left total knee arthroplasty. She has pain at the surgical site as expected but denies any new complaints. He denies numbness, tingling or calf pain. Review of systems is negative for fever, chills, chest pain, shortness of breath or other Objective - Vital Signs Vital signs: Vital Signs Temp 97.8 F 10/12/21 02:36 Pulse 63 10/12/21 02:36 Resp 16 10/12/21 02:36 BP 145/74 10/12/21 02:36 Pulse Ox 98 10/12/21 02:36 Intake & Output 10/11/21 10/12/21 10/12/21 18:59 06:59 18:59 Intake Total 651 Output Total 100 Balance 551 Weight 82.4 kg Intake: IV 651 Output: Estimated Blood Loss 100 Other: # Voids 1 4 # Bowel Movements 0 - Exam Inspection reveals a benign surgical wound. There is no active bleeding or drainage. Neurovascular status is intact throughout the lower extremity with motor and sensation fully intact. Calf is soft and nontender. 2+ dorsalis pedis pulse and less than 2 second cap refill is present. - Constitutional General appearance: Present: no acute distress - Labs CBC & Chem 7: 10/12/21 06:20 Labs: Abnormal Lab Results - Last 24 Hours (Table) 10/11/21 10/11/21 10/11/21 Range/Units 11:00 16:18 20:42 POC Glucose (mg/dL) 194 H 229 H 165 H (75-99) mg/dL 10/12/21 Range/Units 06:43 POC Glucose (mg/dL) 183 H (75-99) mg/dL Assessment and Plan (1) Status post total left knee replacement Narrative/Plan: She will continue with routine postop orthopedic protocol including pain management, wound care, PT, DVT prophylaxis and medical management. Will adjust pain meds today to try to achieve better pain control. Expect that she will transfer to home tomorrow Current Visit: Yes Status: Acute Priority: Medium Code(s): Z96.652 - PRESENCE OF LEFT ARTIFICIAL KNEE JOINT SNOMED Code(s): 2892183806842 Time with Patient: Less than 30
[2021-10-12 11:41] LABS: Glucose,Whole Blood 205 mg/dL (75-99)
--- NOTE | 2021-10-12 12:43 | P.PN ---
Subjective Progress Note Date: 10/12/21 (Blood pressure uncontrolled due to severe pain in the left knee) Principal diagnosis: Status post left knee total arthroplasty associated with severe pain 10 over 10, also orthopedic adjusting her pain medication. Dictation on the progress note date of service 10/12/2021. Dictated by Dr. Wood. Patient seen and evaluated [id number], also found that her blood pressure 180/75 with the involvement of severe pain in the left knee. I did adjust her blood pressure medication and continue to be monitored and increased her lisinopril to 20 mg twice a day, also we increased the clonidine to 0.2 mg twice a day Patient may have volume expansion with the current IV 100 mL/h, and we will be starting her on Lasix 20 mg daily and recheck again tomorrow BMP. And CBC. On examination patient was in severe pain despite that he adjusted her pain medication, I spoke to the patient and the nurse Ramin with the underlying monitoring the blood pressure as the blood pressure will be increased with the pain increase. On the exam patient is conscious alert oriented. In complaint is left knee pain which is expected postoperative. The head was normocephalic and atraumatic pupils equal reactive and conjunctiva was pink sclera was nonicteric. Oropharynx was negative no infection natural teeth Neck was supple no JVD no thyromegaly no lymphadenopathy trachea midline Chest: Clear to auscultation and percussion no wheezes no rhonchi's Heart regular sinus rhythm and blood pressure was uncontrolled in association with the pain Abdomen soft positive bowel sounds no organ enlargement. Extremities: No edema of the right lower extremities, she has severe pain in the left knee. Pulses is intact bilateral Neurological no finding no lateralizing sign. Assessment: #1 uncontrolled hypertension #2 uncontrolled pain in the left knee #3 diabetes mellitus monitored. #4 volume expansion. #5 history of bilateral breast cancer Plan: As mentioned above we adjusted her medication and will see the outcome as well as the orthopedic did monitor her pain and they also adjusted her pain me dication. For further adjustment depending the patient response and progression. Objective - Vital Signs Vital signs: Vital Signs Temp 98.3 F 10/12/21 07:48 Pulse 81 10/12/21 07:48 Resp 16 10/12/21 08:00 BP 180/75 10/12/21 11:53 Pulse Ox 96 10/12/21 07:48 Intake & Output 10/11/21 10/12/21 10/12/21 18:59 06:59 18:59 Intake Total 651 Output Total 100 Balance 551 Weight 82.4 kg Intake: IV 651 Output: Estimated Blood Loss 100 Other: # Voids 1 4 # Bowel Movements 0 - Labs CBC & Chem 7: 10/12/21 06:20 Labs: Abnormal Lab Results - Last 24 Hours (Table) 10/11/21 10/11/21 10/12/21 Range/Units 16:18 20:42 06:20 RBC 3.73 L (4.10-5.20) X 10*6/uL Hgb 11.0 L (12.0-15.0) g/dL Hct 35.3 L (37.2-46.3) % MCHC 31.2 L (32.0-37.0) g/dL POC Glucose (mg/dL) 229 H 165 H (75-99) mg/dL 10/12/21 10/12/21 Range/Units 06:43 11:39 RBC (4.10-5.20) X 10*6/uL Hgb (12.0-15.0) g/dL Hct (37.2-46.3) % MCHC (32.0-37.0) g/dL POC Glucose (mg/dL) 183 H 205 H (75-99) mg/dL
[2021-10-12] MEDS: FUROSEMIDE 20 MG TAB PO SCH (13:18)
[2021-10-12 16:31] LABS: Glucose,Whole Blood 130 mg/dL (75-99)
[2021-10-12] MEDS: SENNOSIDES-DOCUSATE SODIUM 1 EACH TAB PO SCH (20:14)
[2021-10-12] MEDS: cloNIDine HCL 0.2 MG TAB PO SCH (20:14)
[2021-10-12] MEDS: lisinopriL 20 MG TAB PO SCH (20:14)
[2021-10-12] MEDS: ATORVASTATIN 20 MG TAB PO SCH (20:14)
[2021-10-12 20:47] LABS: Glucose,Whole Blood 163 mg/dL (75-99)
[2021-10-13 02:36] VITALS: PULSE 71
[2021-10-13] MEDS: LACTATED RINGERS 1,000 ML IV SCH ×3 (04:58→11:44)
[2021-10-13] MEDS: oxyCODONE-APAP 7.5-325MG 1 EACH TAB PO PRN ×2 (06:06→11:55)
[2021-10-13 06:54] LABS: Glucose,Whole Blood 160 mg/dL (75-99)
[2021-10-13] MEDS: SERTRALINE 100 MG TAB PO SCH (08:49)
[2021-10-13] MEDS: MULTIVITAMINS, THERA 1 EACH TAB PO SCH (08:49)
[2021-10-13] MEDS: METOPROLOL TARTRATE 50 MG TAB PO SCH (08:49)
[2021-10-13] MEDS: glipiZIDE 5 MG TAB PO SCH (08:49)
[2021-10-13] MEDS: FUROSEMIDE 20 MG TAB PO SCH (08:49)
[2021-10-13] MEDS: ASPIRIN 81 MG PO SCH (08:49)
[2021-10-13] MEDS: lisinopriL 20 MG TAB PO SCH (08:49)
[2021-10-13] MEDS: INSULIN ASPART (NovoLOG) 100 UNIT/ML VIAL SQ SCH ×2 (08:49→11:55)
[2021-10-13] MEDS: cloNIDine HCL 0.2 MG TAB PO SCH (08:49)
[2021-10-13] MEDS: amLODIPine 10 MG TAB PO SCH (08:49)
[2021-10-13] MEDS: levETIRAcetam 500 MG TAB PO SCH (08:50)
[2021-10-13] MEDS: carBAMazepine 300 MG CPMP.12HR PO SCH (08:50)
[2021-10-13 09:34] VITALS: BP 180/73; RESP 18; TEMP 98
--- NOTE | 2021-10-13 11:18 | P.DS ---
Providers Date of admission: 10/12/21 13:54 Patient was admitted on 10/11/2021 Expected date of discharge: 10/13/21 Attending physician: Adrián Diaz Consults: 10/11/21 10:08 Consult Physician Routine Consulting Provider: Flynn Siegel Reason/Comments: post op medical management Do you want consulting provider notified?: Yes Primary care physician: Flynn Siegel - Discharge Diagnosis(es) (1) Diabetes mellitus type 2 in obese Current Visit: Yes Status: Acute (2) History of cancer Current Visit: Yes Status: Acute (3) Depression Current Visit: Yes Status: Acute (4) Osteoarthritis of left knee Current Visit: Yes Status: Acute (5) Status post total left knee replacement Current Visit: Yes Status: Acute Priority: Medium (6) Hypertension Current Visit: No Status: Acute (7) Hyperlipidemia Current Visit: Yes Status: Acute Hospital Course: This is a pleasant 66 -year-old female who presented with left knee osteoarthrosis who failed outpatient conservative therapy. She was admitted for a left total knee arthroplasty. Patient initially had some pain control but states her pain has been significantly improved as compared to yesterday when she is able to take her pain medication regularly. The patient tolerated the procedure well and did well postoperatively. She has been able to ambulate the hallways with the assistance of a walker without difficulty. She was able to ambulate the steps today with physical therapy without difficulty. She has been able to get out of bed and ambulate throughout her room independently with the assistance of a walker. Patient had discussed the possibility of discharge to rehabilitation facility yesterday, but given her significant improvement she feels she is ready for discharge home today. She is happy with her progress since yesterday. She states she does have assistance at home as her son lives with her. Condition on day of discharge stable. Patient will be discharged home. Patient was cleared preoperatively for surgery by Dr. Siegel. Patient currently denies any nausea, vomiting, fever, or chills. Patient is eating and voiding freely without difficulty. Patient's surgical site is clean, dry, and intact. The glue remains intact. We did discuss she should avoid getting her incision site wet over the next 3 days. If the incision site remains clean, dry, intact, patient may shower in 3 days without a dressing intact. Patient should refrain from driving until at least after their first follow-up appointment in the office. She may continue weightbearing as tolerated on the left lower extremity with assistance of a walker. A prescription has been written, signed, and provided to case management for a walker. She may apply ice for comfort support over the left knee as needed. She is encouraged to continue with elevating her left lower extremity was addressed. On-Q pain pump will be managed by anesthesia. MAPS was previously reviewed. An "Opiod Start Talking" Form has been signed and placed in the patient's chart. A prescription has been written for Percocet 7.5 mg/325 mg, 1 tablet every 4 hours as needed for pain, dispense #42. Patient given prescription for aspirin 81 mg 1 tab twice a day, dispensed #60. Patient should take this prescription until completion. Patient is also given a prescription for Colace 100 mg 1 tab by mouth twice a day, dispensed #60, as needed for constipation. Prescriptions have been sent to the patient's regular pharmacy, [facility], as preferred. Patient's other medical diagnoses include hyperlipidemia, hypertension, diabetes - type 2, depression, and history of cancer. Physical Exam on day of discharge: Status post surgical day number 2 Patient is awake, alert, and oriented 3 Vital signs stable Good chest excursion with deep inspiration and expiration No signs or symptoms of DVT; no calf pain Dressing is clean, dry, and intact; no erythema, purulence, or signs of infection Patient has full foot and ankle motion without difficulty bilateral lower extremities Dorsiflexion, plantar flexion, and extensor hallucis longus positive sustained bilaterally Neurovascular status left lower extremity intact Capillary refill lower extremity is bilaterally less than 2 seconds On-Q pain pump intact Patient is able to mobilize in the room independently without significant difficulty with the assistance of a walker Procedures: Left total knee arthroplasty Patient Condition at Discharge: Stable Plan - Discharge Summary Discharge Rx Participant: No New Discharge Prescriptions: New Aspirin [Adult Low Dose Aspirin EC] 81 mg PO BID #60 tab Docusate [Colace] 100 mg PO BID #60 capsule oxyCODONE-APAP 7.5-325MG [Percocet 7.5-325 mg] 1 tab PO Q4HR PRN #42 tab PRN Reason: Pain No Action levETIRAcetam [Keppra] 1,000 mg PO BID glipiZIDE [Glucotrol] 5 mg PO AC-BID carBAMazepine [Carbatrol] 600 mg PO BID Atorvastatin [Lipitor] 20 mg PO HS Sertraline [Zoloft] 100 mg PO DAILY Ibuprofen [Motrin] 800 mg PO Q8H PRN PRN Reason: Pain metFORMIN HCL [Glucophage] 1,000 mg PO BID Metoprolol Tartrate [Lopressor] 50 mg PO BID Meclizine [Antivert] 25 mg PO DAILY PRN PRN Reason: DIZZINESS hydrALAZINE HCL [Apresoline] 100 mg PO TID Enalapril [Vasotec] 20 mg PO BID Diphenox-Atrop 2.5-0.025 mg [Lomotil] 1 tab PO TID PRN PRN Reason: Loose Stool amLODIPine [Norvasc] 10 mg PO DAILY cloNIDine HCL [Catapres] 0.1 mg PO BID hydroCHLOROthiazide 25 mg PO DAILY Ondansetron [Zofran] 4 mg PO DAILY PRN PRN Reason: Nausea Aspirin EC [Ecotrin Low Dose] 81 mg PO DAILY traZODone HCL 100 mg PO HS PRN PRN Reason: SLEEP Discharge Medication List carBAMazepine [Carbatrol] 600 mg PO BID 12/16/13 [History] glipiZIDE [Glucotrol] 5 mg PO AC-BID 12/16/13 [History] levETIRAcetam [Keppra] 1,000 mg PO BID 12/16/13 [History] Atorvastatin [Lipitor] 20 mg PO HS 04/21/14 [History] Sertraline [Zoloft] 100 mg PO DAILY 12/16/18 [History] Ibuprofen [Motrin] 800 mg PO Q8H PRN 06/30/20 [History] Aspirin EC [Ecotrin Low Dose] 81 mg PO DAILY 06/07/21 [History] Diphenox-Atrop 2.5-0.025 mg [Lomotil] 1 tab PO TID PRN 06/07/21 [History] Enalapril [Vasotec] 20 mg PO BID 06/07/21 [History] Meclizine [Antivert] 25 mg PO DAILY PRN 06/07/21 [History] Metoprolol Tartrate [Lopressor] 50 mg PO BID 06/07/21 [History] Ondansetron [Zofran] 4 mg PO DAILY PRN 06/07/21 [History] amLODIPine [Norvasc] 10 mg PO DAILY 06/07/21 [History] hydrALAZINE HCL [Apresoline] 100 mg PO TID 06/07/21 [History] metFORMIN HCL [Glucophage] 1,000 mg PO BID 06/07/21 [History] cloNIDine HCL [Catapres] 0.1 mg PO BID 10/08/21 [History] hydroCHLOROthiazide 25 mg PO DAILY 10/08/21 [History] traZODone HCL 100 mg PO HS PRN 10/08/21 [History] Aspirin [Adult Low Dose Aspirin EC] 81 mg PO BID #60 tab 10/11/21 [Rx] Docusate [Colace] 100 mg PO BID #60 capsule 10/11/21 [Rx] oxyCODONE-APAP 7.5-325MG [Percocet 7.5-325 mg] 1 tab PO Q4HR PRN #42 tab 10/12/21 [Rx] Follow up Appointment(s)/Referral(s): Adrián Diaz MD [STAFF PHYSICIAN] - 10/22/21 1:00 pm Flynn Siegel MD [Primary Care Provider] - 10/17/21 11:20 am Activity/Diet/Wound Care/Special Instructions: 1. Weight bear as tolerated on the left lower extremity with the assistance of a walker as needed 2. May shower after 3 days if no bleeding 3. Keep wound clean and dry 4. Patient may apply ice over the surgical site for comfort support as needed 5. Patient is encouraged to elevate left lower extremity while at rest 6. Take meds as directed 7. F/U with Dr. Diaz in office Discharge Disposition: HOME SELF-CARE
[2021-10-13 11:58] LABS: Glucose,Whole Blood 166 mg/dL (75-99)
--- NOTE | 2021-10-13 13:30 | P.PN ---
Progress Note - Text Progress Note Date: 10/13/21 (Discharge today by the orthopedic) Progress note dictation date of service 10/13/2021 Patient seen in [id number] and evaluated Patient stated that her pain has been under control with the pain medication prescribed by the orthopedic surgeon. Status post left total knee arthroplasty by Dr. Diaz orthopedic surgeon. Patient has underlying history of fluctuation of the blood pressure with elevation medication was adjusted. Blood pressure also increased with the pain level as well. Patient denied any chest pain or shortness of breath, and the pain in the left knee currently is improving. On the physical exam patient was conscious alert oriented 3 Patient has a question regarding why her blood sugar is increased and that due to the use of steroid pulsed operative with the edema Tucker. Head was normocephalic and atraumatic pupils equal reactive conjunctiva was pink sclera was nonicteric hearing was normal Neck was supple no JVD no thyromegaly no lymphadenopathy trachea midline. Chest is normal breath sounds bilaterally with the underlying bilateral mastectomy secondary to breast cancer. Heart regular sinus rhythm no dysrhythmia Abdomen soft positive bowel sounds no nausea no vomiting. Extremities no edema. Pulses however she had status post left total knee arthroplasty with the soft tissue edema expected post operative. No Neurologically stable. Assessment: #1 status post left total knee arthroplasty with advanced degenerative osteoarthritis symptomatic. #2 hypertension was hypertensive heart disease with the fluctuation of blood pressure and elevation spatially with the pain component of the surgery. #3 history of diabetes mellitus which mildly increased due to the use of the steroid postoperative period Recommendation and plan: #1 patient discharged to go to the orthopedic team to home. #2 continue the current home medication. #3 we'll follow her next week if she able to come to the office. And discussed with her if she has any [place] problem to call the office if she isn't able to come to the office. #4 she will be checking her blood pressure at home and she will call the office.
== END 2021-10-13 14:25 | disposition home or self-care (01) | DRG 470 ==
LOC: OR 06:09 → 4SSUR 11:35 → OR 10-12 13:54
PROVIDERS: ADMIT Orthopaedic Surgery Sports Medicine; ATTEND Orthopaedic Surgery Sports Medicine
PROC: 0SRD0J9 Replacement of Left Knee Joint with Synthetic Substitute, Cemented, Open Approach (ICD-10-PCS; principal; 2021-10-12)
DX: M17.12 Unilateral primary osteoarthritis, left knee (principal); Z85.3 Personal history of malignant neoplasm of breast; Z90.13 Acquired absence of bilateral breasts and nipples; E11.9 Type 2 diabetes mellitus without complications; T38.0X5A Adverse effect of glucocorticoids and synthetic analogues, initial encounter; E11.65 Type 2 diabetes mellitus with hyperglycemia; E66.9 Obesity, unspecified; Z68.33 Body mass index [BMI] 33.0-33.9, adult; E55.9 Vitamin D deficiency, unspecified; G40.909 Epilepsy, unspecified, not intractable, without status epilepticus; E78.5 Hyperlipidemia, unspecified; F32.A Depression, unspecified; I11.9 Hypertensive heart disease without heart failure; Z20.822 Contact with and (suspected) exposure to COVID-19; Z79.82 Long term (current) use of aspirin; Z79.84 Long term (current) use of oral hypoglycemic drugs; Z79.899 Other long term (current) drug therapy; Z85.42 Personal history of malignant neoplasm of other parts of uterus; Z86.73 Personal history of transient ischemic attack (TIA), and cerebral infarction without residual deficits; Z90.710 Acquired absence of both cervix and uterus; Z85.038 Personal history of other malignant neoplasm of large intestine; Z85.43 Personal history of malignant neoplasm of ovary; Z90.49 Acquired absence of other specified parts of digestive tract; Z90.89 Acquired absence of other organs; Z98.890 Other specified postprocedural states; Z98.42 Cataract extraction status, left eye; Z98.41 Cataract extraction status, right eye; Z87.828 Personal history of other (healed) physical injury and trauma; Z88.0 Allergy status to penicillin; Z91.018 Allergy to other foods
CPT/HCPCS: 64448; 64999; 76942; 85025; 87635; 88305; 88311

== ENCOUNTER 2021-12-02 17:16 | Emergency (ER) | payer MEDICARE, BC ==
[2021-12-02 17:46] VITALS: BP 154/77; PULSE 86; RESP 18
--- NOTE | 2021-12-02 18:15 | XR ---
EXAMINATION TYPE: XR knee complete LT DATE OF EXAM: 12/02/2021 COMPARISON: 10/11/2021 HISTORY: Pain and swelling TECHNIQUE: 3 views FINDINGS: There is left knee prosthesis. Components appear in good position. There is some soft tissu e swelling above the patella. IMPRESSION: Soft tissue swelling. No fracture seen.
[2021-12-02] MEDS ORDERED: HYDROmorphone 1 MG/ML 1 ML SYRINGE IM STA (20:00)
--- NOTE | 2021-12-02 20:47 | CT ---
EXAMINATION TYPE: CT knee LT wo con DATE OF EXAM: 12/02/2021 COMPARISON: 10/11/2021 HISTORY: Pt fall on LT knee. Recent knee replacement sx. CT DLP: 227 mGycm Automated exposure control for dose reduction was used. Images obtained from the mid femur to the mid tibia without contrast. There is a left knee prosthesis. Components appear in good position. No fracture line seen. Exam limi alicia by metal artifact. There is a large knee joint effusion. There is mild subcutaneous edema over th e anterior distal femur. IMPRESSION: Knee joint effusion. Subcutaneous edema. No fracture line seen. Knee joint effusion appears new kaylin red to the postoperative exam of 10/11/2021. Soft tissue swelling is new compared to old exam.
--- NOTE | 2021-12-02 21:04 | ED ---
General Adult HPI - General Chief complaint: Extremity Injury, Lower Stated complaint: Fall/Lt Knee Pain Time Seen by Provider: 12/02/21 19:55 Source: patient, RN notes reviewed, old records reviewed Mode of arrival: wheelchair Limitations: no limitations - History of Present Illness Initial comments: 58-year-old female who is approximately one month status post knee replacement presents status post trip and fall onto her left knee. She has had pain and has been unable to fully bear weight on this knee since the fall which occurred prior to arrival. No other injury reported. No head or neck trauma. - Related Data Home Medications Medication Instructions Recorded Confirmed glipiZIDE [Glucotrol] 5 mg PO AC-BID 12/16/13 11/13/21 levETIRAcetam [Keppra] 1,000 mg PO BID 12/16/13 11/13/21 Atorvastatin [Lipitor] 20 mg PO HS 04/21/14 11/13/21 Sertraline [Zoloft] 100 mg PO DAILY 12/16/18 11/13/21 Ibuprofen [Motrin] 800 mg PO Q8H PRN 06/30/20 11/13/21 Enalapril [Vasotec] 20 mg PO BID 06/07/21 11/13/21 Metoprolol Tartrate [Lopressor] 50 mg PO BID 06/07/21 11/13/21 amLODIPine [Norvasc] 10 mg PO HS 06/07/21 11/13/21 hydrALAZINE HCL [Apresoline] 100 mg PO TID 06/07/21 11/13/21 metFORMIN HCL [Glucophage] 1,000 mg PO BID 06/07/21 11/13/21 cloNIDine HCL [Catapres] 0.1 mg PO BID 10/08/21 11/13/21 hydroCHLOROthiazide 25 mg PO DAILY 10/08/21 11/13/21 Cholecalciferol [Vitamin D3 (25 50 mcg PO DAILY 11/13/21 11/13/21 Mcg = 1000 Iu)] carBAMazepine [carBAMazepine ER] 600 mg PO BID 11/13/21 11/13/21 oxyCODONE-APAP 10-325MG [Percocet 1 tab PO Q4-6H PRN 11/13/21 11/13/21 10-325 mg] traZODone HCL [Desyrel] 200 mg PO HS 11/13/21 11/13/21 Previous Rx's Medication Instructions Recorded Aspirin [Adult Low Dose Aspirin EC] 81 mg PO BID #60 tab 10/11/21 Oseltamivir [Tamiflu] 75 mg PO Q12HR 5 Days #10 cap 11/13/21 Benzocaine/Menthol Lozeng [Cepacol 1 each MUCOUS MEM Q6HR PRN #30 11/16/21 lozenge] lozenge Benzonatate [Tessalon Perles] 100 mg PO Q6H PRN #30 cap 11/16/21 Allergies Allergy/AdvReac Type Severity Reaction Status Date / Time chlorhexidine Allergy Itching Verified 12/02/21 17:46 Mushroom Allergy Itching Verified 12/02/21 17:46 Review of Systems ROS Statement: Those systems with pertinent positive or pertinent negative responses have been documented in the HPI. ROS Other: All systems not noted in ROS Statement are negative. Past Medical History Past Medical History: Cancer, CVA/TIA, Diabetes Mellitus, GERD/Reflux, Hyperlipidemia, Hypertension, Osteoarthritis (OA), Pneumonia, Seizure Disorder Additional Past Medical History / Comment(s): breast/colon/ovarian,uterine CA, no bp in rt arm. told she had a stroke 03/2014 "blood clot in back of head". hx of head injury 3rd grade, pt states she has "slow thinking process"and seizures started after injury. -last seizure POSSIBLE FEBRUARY 2021 , hx back pain. brain aneurysm 2007,menieres disease, LOOSE STOOLS AND INCONTINENT OF URINE- PADS/DEPENDS History of Any Multi-Drug Resistant Organisms: None Reported Past Surgical History: Adenoidectomy, Appendectomy, Bladder Surgery, Bowel Resection, Breast Surgery, Section, Cholecystectomy, Hernia Repair, Hysterectomy, Orthopedic Surgery, Tonsillectomy Additional Past Surgical History / Comment(s): rt mastectomy , manpreet BREAST BX, MANPREET CATARACT SX, BLADDER SUSPENSION, bowel resection x2 d/t ca. Past Anesthesia/Blood Transfusion Reactions: Postoperative Nausea & Vomiting (PONV) Past Psychological History: Anxiety, Depression Smoking Status: Never smoker Past Alcohol Use History: None Reported Past Drug Use History: None Reported - Past Family History Mother Family Medical History: Cancer Father Family Medical History: Cancer General Exam Limitations: no limitations General appearance: alert, in no apparent distress Head exam: Present: atraumatic, normocephalic Eye exam: Present: normal appearance, PERRL ENT exam: Present: normal exam Neck exam: Present: normal inspection. Absent: tenderness, meningismus Respiratory exam: Present: normal lung sounds bilaterally. Absent: respiratory distress, wheezes Cardiovascular Exam: Present: regular rate, normal rhythm GI/Abdominal exam: Present: soft. Absent: distended, tenderness Extremities exam: Present: joint swelling, other (No deformity noted, the incision is intact without signs of infection. There is a joint effusion. Dist al pulses are intact.) Neurological exam: Present: alert, oriented X3, CN II-XII intact. Absent: motor sensory deficit Psychiatric exam: Present: normal affect, normal mood Skin exam: Present: warm, dry, intact, normal color. Absent: cyanosis, diaphoretic Course Vital Signs 12/02/21 17:43 Pulse Rate 86 Respiratory 18 Rate Blood Pressure 154/77 O2 Sat by Pulse 98 Oximetry Medical Decision Making - Medical Decision Making X-ray performed which is negative for fracture or acute bony abnormality, I did perform CT imaging as x-ray was negative and there was significant pain. This was also negative. The patient should follow with orthopedics as soon as possible. Disposition Clinical Impression: Contusion of knee Disposition: HOME SELF-CARE Condition: Fair Instructions (If sedation given, give patient instructions): Knee Pain (ED), Knee Sprain (ED) Is patient prescribed a controlled substance at d/c from ED?: No Referrals: Flynn Siegel MD [Primary Care Provider] - 1-2 days Adrián Diaz MD [STAFF PHYSICIAN] - 1-2 days Time of Disposition: 21:04
== END 2021-12-02 21:41 | disposition home or self-care (01) ==
LOC: EC 17:16
DX: S80.02XA Contusion of left knee, initial encounter (principal); E11.9 Type 2 diabetes mellitus without complications; K21.9 Gastro-esophageal reflux disease without esophagitis; E78.5 Hyperlipidemia, unspecified; I10 Essential (primary) hypertension; M19.90 Unspecified osteoarthritis, unspecified site; F41.9 Anxiety disorder, unspecified; F32.A Depression, unspecified; G40.909 Epilepsy, unspecified, not intractable, without status epilepticus; Z79.84 Long term (current) use of oral hypoglycemic drugs; Z79.82 Long term (current) use of aspirin; Z96.652 Presence of left artificial knee joint; Z86.73 Personal history of transient ischemic attack (TIA), and cerebral infarction without residual deficits; Z85.42 Personal history of malignant neoplasm of other parts of uterus; Z90.49 Acquired absence of other specified parts of digestive tract; Z90.710 Acquired absence of both cervix and uterus; Z90.13 Acquired absence of bilateral breasts and nipples; W01.0XXA Fall on same level from slipping, tripping and stumbling without subsequent striking against object, initial encounter
CPT/HCPCS: 99284; 96372; 73562; 73700; J1170

== ENCOUNTER 2021-12-13 09:54 | Inpatient (IN) | payer MEDICARE, BC ==
[2021-12-13] MEDS ORDERED: SODIUM CHLORIDE 0.9% 2,000 ML IV STA (10:28)
[2021-12-13] MEDS ORDERED: ONDANSETRON 4 MG/2 ML VIAL IVP STA (10:28)
[2021-12-13] MEDS ORDERED: LORazepam 2 MG/ML INJ IV STA (10:35)
[2021-12-13] MEDS ORDERED: PANTOPRAZOLE 40 MG/10 ML VIAL IVP STA (10:43)
[2021-12-13 11:13] LABS: Basophils % (A) 0 %; Eosinophils # (A) 0.2 k/uL (0-0.7); Eosinophils % (A) 2 %; HCT 38.9 % (34.0-46.0); HGB 12.5 gm/dL (11.4-16.0); Lymphocytes # (A) 0.5 k/uL (1.0-4.8); Lymphocytes % (A) 4 %; MCH 28.3 pg (25.0-35.0); MCHC 32.1 g/dL (31.0-37.0); MCV 88.2 fL (80.0-100.0); Monocytes # (A) 0.3 k/uL (0-1.0); Monocytes % (A) 3 %; Neutrophils # (A) 11.3 k/uL (1.3-7.7); Neutrophils % (A) 91 %; Platelet Count 402 k/uL (150-450); RBC 4.42 m/uL (3.80-5.40); RDW 13.6 % (11.5-15.5); WBC 12.5 k/uL (3.8-10.6)
[2021-12-13 11:36] LABS: ALT 27 U/L (4-34); Acetaminophen <10.0 ug/mL; African American GFR (CKD) >90 (>60 ml/min/1.73 sqM); Albumin 4.1 g/dL (3.5-5.0); Anion Gap 15 mmol/L; Blood Urea Nitrogen 14 mg/dL (7-17); Calcium 8.5 mg/dL (8.4-10.2); Carbon Dioxide 19 mmol/L (22-30); Chloride 104 mmol/L (98-107); Glucose 205 mg/dL (74-99); Lipase 112 U/L (23-300); Non-African American GFR(CKD) >90 (>60 ml/min/1.73 sqM); Sodium 138 mmol/L (137-145); Total Bilirubin 0.8 mg/dL (0.2-1.3); Total Protein 6.9 g/dL (6.3-8.2)
--- NOTE | 2021-12-13 11:47 | ED ---
Nausea/Vomiting/Diarrhea HPI - General Chief complaint: Nausea/Vomiting/Diarrhea Stated complaint: NVD Time Seen by Provider: 12/13/21 10:17 Source: patient Mode of arrival: wheelchair Limitations: no limitations - History of Present Illness Initial comments: Patient is a 66-year-old female who presents to the emergency department with a chief complaint of nausea, vomiting, and diarrhea since 7 AM this morning. Patient states she has been consistently vomiting and dry heaving since this morning, nonbloody. She estimates over 10 episodes of vomiting. Patient states she has endorsed multiple episodes of diarrhea while vomiting, nonbloody. Upon questioning patient admits to intermittent chills. She denies abdominal pain, back pain, burning with urination, and blood in the urine. Denies chest pain at rest however states this chest irritation with dry heaving. Denies shortness of breath and sweating. Denies recent sick contacts. Patient has history of breast, ovarian, uterine, and colon cancer. She states she is in remission. She has history of cholecystectomy. She denies history of previous bowel obstruction, pancreatitis, kidney stone, kidney infection. Denies family history of aortic aneurysm. Denies past and current tobacco use. - Related Data Home Medications Medication Instructions Recorded Confirmed glipiZIDE [Glucotrol] 5 mg PO AC-BID 12/16/13 12/13/21 levETIRAcetam [Keppra] 1,000 mg PO BID 12/16/13 12/13/21 Atorvastatin [Lipitor] 20 mg PO HS 04/21/14 12/13/21 Sertraline [Zoloft] 100 mg PO DAILY 12/16/18 12/13/21 Enalapril [Vasotec] 20 mg PO BID 06/07/21 12/13/21 Metoprolol Tartrate [Lopressor] 50 mg PO BID 06/07/21 12/13/21 amLODIPine [Norvasc] 10 mg PO HS 06/07/21 12/13/21 hydrALAZINE HCL [Apresoline] 100 mg PO TID 06/07/21 12/13/21 metFORMIN HCL [Glucophage] 1,000 mg PO BID 06/07/21 12/13/21 cloNIDine HCL [Catapres] 0.2 mg PO BID 10/08/21 12/13/21 hydroCHLOROthiazide 25 mg PO DAILY 10/08/21 12/13/21 Cholecalciferol [Vitamin D3 (25 50 mcg PO DAILY 11/13/21 12/13/21 Mcg = 1000 Iu)] carBAMazepine [carBAMazepine ER] 600 mg PO BID 11/13/21 12/13/21 traZODone HCL [Desyrel] 100 mg PO HS PRN 11/13/21 12/13/21 Aspirin [Adult Low Dose Aspirin EC] 81 mg PO DAILY 12/13/21 12/13/21 Diphenox-Atrop 2.5-0.025 mg 2 tab PO TID PRN 12/13/21 12/13/21 [Lomotil] Ondansetron [Zofran] 4 mg PO Q8HR PRN 12/13/21 12/13/21 oxyCODONE-APAP 7.5-325MG [Percocet 1 tab PO Q4H PRN 12/13/21 12/13/21 7.5-325 mg] Allergies Allergy/AdvReac Type Severity Reaction Status Date / Time chlorhexidine Allergy Itching Verified 12/13/21 14:01 Mushroom Allergy Itching Verified 12/13/21 14:01 Review of Systems ROS Statement: Those systems with pertinent positive or pertinent negative responses have been documented in the HPI. ROS Other: All systems not noted in ROS Statement are negative. Past Medical History Past Medical History: Cancer, CVA/TIA, Diabetes Mellitus, GERD/Reflux, Hyperlipidemia, Hypertension, Osteoarthritis (OA), Pneumonia, Seizure Disorder Additional Past Medical History / Comment(s): breast/colon/ovarian,uterine CA, no bp in rt arm. told she had a stroke 03/2014 "blood clot in back of head". hx of head injury 3rd grade, pt states she has "slow thinking process"and seizures started after injury. -last seizure POSSIBLE FEBRUARY 2021 , hx back pain. brain aneurysm 2007,menieres disease, LOOSE STOOLS AND INCONTINENT OF URINE- PADS/DEPENDS History of Any Multi-Drug Resistant Organisms: None Reported Past Surgical History: Adenoidectomy, Appendectomy, Bladder Surgery, Bowel Resection, Breast Surgery, Section, Cholecystectomy, Hernia Repair, Hysterectomy, Orthopedic Surgery, Tonsillectomy Additional Past Surgical History / Comment(s): rt mastectomy , manpreet BREAST BX, MANPREET CATARACT SX, BLADDER SUSPENSION, bowel resection x2 d/t ca. Past Anesthesia/Blood Transfusion Reactions: Postoperative Nausea & Vomiting (PONV) Past Psychological History: Anxiety, Depression Smoking Status: Never smoker Past Alcohol Use History: None Reported Past Drug Use History: None Reported - Past Family History Mother Family Medical History: Cancer Father Family Medical History: Cancer General Exam Limitations: no limitations General appearance: alert, anxious, in distress (Patient seems very nervous to be in the emergency department, crying because she doesn't feel good) Head exam: Present: atraumatic, normocephalic, normal inspection ENT exam: Present: normal oropharynx Respiratory exam: Present: normal lung sounds bilaterally. Absent: respiratory distress, wheezes, rales, rhonchi, stridor Cardiovascular Exam: Present: normal rhythm, tachycardia. Absent: systolic murmur, diastolic murmur, rubs, gallop, JVD, S3, S4 GI/Abdominal exam: Present: soft, tenderness (Moderate in the epigastric region). Absent: distended Back exam: Present: normal inspection. Absent: CVA tenderness (R), CVA tenderness (L) Neurological exam: Present: alert, oriented X3, CN II-XII intact Psychiatric exam: Present: normal affect, normal mood Skin exam: Present: warm, dry, intact, normal color. Absent: rash Course Vital Signs 12/13/21 12/13/21 12/13/21 10:08 13:48 16:50 Temperature 97.9 F Pulse Rate 126 H 98 82 Respiratory 22 20 20 Rate Blood Pressure 123/75 180/81 164/74 O2 Sat by Pulse 99 98 98 Oximetry 12/13/21 17:59 Temperature Pulse Rate 87 Respiratory 20 Rate Blood Pressure 172/74 O2 Sat by Pulse 99 Oximetry - Reevaluation(s) Reevaluation #1: Patient is resting comfortably in bed. She has calmed down quite a bit. Patient states her nausea is controlled. 12/13/21 14:37 Medical Decision Making - Medical Decision Making This is a 58-year-old female who presents with nausea, vomiting, diarrhea since this morning. Thorough history and examination were performed. Patient appears nauseous with dry heaving during my examination. She is very anxious and does cry during my examination because she does not feel well. She is tachycardic at 126. She is afebrile. Despite patient denies abdominal pain she is very tender in the epigastric region. No back pain. Has chest irritation with dry heaving. No past or current use of tobacco. Laboratory studies were ordered. Initially there was trouble obtaining IV access so IM Zofran and Ativan were given for nausea and anxiety. IV access was obtained with ultrasound guidance. With patient's history of presentation and epigastric tenderness, pancreatitis and bowel obstruction cannot be ruled out. CT of the abdomen and pelvis with contrast will be obtained due to concern for acute abdominal process. My suspicion for cardiac related chest pain is very low. EKG shows sinus rhythm. Troponin is within normal limits. Patient has elevated white count at 12.5. Lipase is within normal limits. COVID-19 and influenza A/B are not detected. CT of the abdomen and pelvis with contrast shows dilated loops of the jejunum measuring up to 2.2 cm with mild wall thickening with concern for enteritis. There is no obvious transition zone suggested at this time to indicate obstructive change. Results discussed with Dr. Siegel. Patient will be admitted to his service with surgery consult due to concern for possible small bowel obstruction. She was made NPO. NG tube was placed. On reevaluation patient is relaxed. She is in much better spirit. She states her nausea is controlled. She is agreeable with admission. Dr. Doran is my attending. - Lab Data Result diagrams: 12/13/21 10:38 12/13/21 10:38 Lab Results 12/13/21 12/13/21 12/13/21 Range/Units 10:38 10:38 10:38 WBC 12.5 H (3.8-10.6) k/uL RBC 4.42 (3.80-5.40) m/uL Hgb 12.5 (11.4-16.0) gm/dL Hct 38.9 (34.0-46.0) % MCV 88.2 (80.0-100.0) fL MCH 28.3 (25.0-35.0) pg MCHC 32.1 (31.0-37.0) g/dL RDW 13.6 (11.5-15.5) % Plt Count 402 (150-450) k/uL MPV 7.0 Neutrophils % 91 % Lymphocytes % 4 % Monocytes % 3 % Eosinophils % 2 % Basophils % 0 % Neutrophils # 11.3 H (1.3-7.7) k/uL Lymphocytes # 0.5 L (1.0-4.8) k/uL Monocytes # 0.3 (0-1.0) k/uL Eosinophils # 0.2 (0-0.7) k/uL Basophils # 0.0 (0-0.2) k/uL Sodium 138 (137-145) mmol/L Potassium 4.5 (3.5-5.1) mmol/L Chloride 104 (98-107) mmol/L Carbon Dioxide 19 L (22-30) mmol/L Anion Gap 15 mmol/L BUN 14 (7-17) mg/dL Creatinine 0.51 L (0.52-1.04) mg/dL Est GFR (CKD-EPI)AfAm >90 (>60 ml/min/1.73 sqM) Est GFR (CKD-EPI)NonAf >90 (>60 ml/min/1.73 sqM) Glucose 205 H (74-99) mg/dL Calcium 8.5 (8.4-10.2) mg/dL Total Bilirubin 0.8 (0.2-1.3) mg/dL AST 27 (14-36) U/L ALT 27 (4-34) U/L Alkaline Phosphatase 129 H (38-126) U/L Troponin I <0.012 (0.000-0.034) ng/mL Total Protein 6.9 (6.3-8.2) g/dL Albumin 4.1 (3.5-5.0) g/dL Lipase 112 (23-300) U/L Acetaminophen <10.0 ug/mL Influenza Type A (PCR) (Not Detectd) Influenza Type B (PCR) (Not Detectd) RSV (PCR) (Not Detectd) SARS-CoV-2 (PCR) (Not Detectd) 12/13/21 Range/Units 10:38 WBC (3.8-10.6) k/uL RBC (3.80-5.40) m/uL Hgb (11.4-16.0) gm/dL Hct (34.0-46.0) % MCV (80.0-100.0) fL MCH (25.0-35.0) pg MCHC (31.0-37.0) g/dL RDW (11.5-15.5) % Plt Count (150-450) k/uL MPV Neutrophils % % Lymphocytes % % Monocytes % % Eosinophils % % Basophils % % Neutrophils # (1.3-7.7) k/uL Lymphocytes # (1.0-4.8) k/uL Monocytes # (0-1.0) k/uL Eosinophils # (0-0.7) k/uL Basophils # (0-0.2) k/uL Sodium (137-145) mmol/L Potassium (3.5-5.1) mmol/L Chloride (98-107) mmol/L Carbon Dioxide (22-30) mmol/L Anion Gap mmol/L BUN (7-17) mg/dL Creatinine (0.52-1.04) mg/dL Est GFR (CKD-EPI)AfAm (>60 ml/min/1.73 sqM) Est GFR (CKD-EPI)NonAf (>60 ml/min/1.73 sqM) Glucose (74-99) mg/dL Calcium (8.4-10.2) mg/dL Total Bilirubin (0.2-1.3) mg/dL AST (14-36) U/L ALT (4-34) U/L Alkaline Phosphatase (38-126) U/L Troponin I (0.000-0.034) ng/mL Total Protein (6.3-8.2) g/dL Albumin (3.5-5.0) g/dL Lipase (23-300) U/L Acetaminophen ug/mL Influenza Type A (PCR) Not Detected (Not Detectd) Influenza Type B (PCR) Not Detected (Not Detectd) RSV (PCR) Not Detected (Not Detectd) SARS-CoV-2 (PCR) Not Detected (Not Detectd) Disposition Clinical Impression: Enteritis, Nausea & vomiting, Diarrhea, Encounter for nasogastric (NG) tube placement Disposition: ADMITTED IP TO THIS HOSP Condition: Fair Referrals: Flynn Siegel MD [Primary Care Provider] - 1-2 days Decision Time: 18:11
[2021-12-13 11:50] LABS: AST 27 U/L (14-36); Alkaline Phosphatase 129 U/L (38-126); Potassium 4.5 mmol/L (3.5-5.1)
--- NOTE | 2021-12-13 13:02 | XR ---
EXAMINATION TYPE: XR chest 2V DATE OF EXAM: 12/13/2021 COMPARISON: 11/13/2021 HISTORY: Shortness of breath TECHNIQUE: Frontal and lateral views of the chest are obtained. FINDINGS: Scattered senescent parenchymal changes noted. No evidence for infiltrate. No evidence for atelectasis. Heart size is stable. Mediastinal structures are stable and grossly unremarkable. No evidence for hilar prominence. Degenerative changes dorsal spine. IMPRESSION: 1. No evidence for acute pulmonary disease.
[2021-12-13] MEDS ORDERED: ONDANSETRON 4 MG/2 ML VIAL IM STA (13:33)
[2021-12-13] MEDS ORDERED: LORazepam 2 MG/ML INJ IM STA (13:34)
--- NOTE | 2021-12-13 14:45 | CT ---
EXAMINATION TYPE: CT abdomen pelvis w con DATE OF EXAM: 12/13/2021 COMPARISON: None HISTORY: Abdominal pain, nausea and vomiting. CT DLP: 1101 mGycm CONTRAST: CT scan of the abdomen and pelvis is performed without Oral Contrast and with IV Contrast, patient in jected with 100ml mL of Isovue 300. FINDINGS: LUNG BASES-: No visible nodule. No infiltrate. LIVER/GB: The gallbladder surgically absent. No space occupying hepatic lesion. Biliary tree is of normal caliber. PANCREAS: No inflammation. No distinct mass. SPLEEN: No splenic enlargement. No lesion seen. ADRENALS: No nodule. No thickening. KIDNEYS/BLADDER: No hydronephrosis. No nephrolithiasis. No distinct renal mass. Urinary bladder g rossly unremarkable. BOWEL: Surgical absence of the appendix. There are dilated loops of jejunum measuring up to 3.2 cm wi th mild wall thickening. There is normalization of the ileum. The large bowel is of normal caliber. F indings could reflect enteritis. No obvious transition zone suggested at this time indicate obstructi ve change. Postoperative changes sigmoid colon. GENITAL ORGANS: No gross abnormality. LYMPH NODES: No greater than 1cm abdominal or pelvic lymph nodes are appreciated. AORTA: No significant abnormality. OSSEOUS STRUCTURES: No significant abnormality is seen. OTHER: No significant additional abnormality is seen. IMPRESSION: 1. There are dilated loops of jejunum measuring up to 3.2 cm with mild wall thickening.Findings could reflect enteritis. No obvious transition zone suggested at this time indicate obstructive change. C linical correlation and appropriate follow-up is advised.
[2021-12-13] MEDS ORDERED: SODIUM CHLORIDE 0.9% 1,000 ML IV SCH (17:15)
[2021-12-13] MEDS ORDERED: ACETAMINOPHEN TAB 325 MG TAB PO STA (17:41)
[2021-12-13] MEDS ORDERED: KETOROLAC 15 MG/ML 1 ML VIAL IVP STA (17:42)
[2021-12-13] MEDS: ONDANSETRON 4 MG/2 ML VIAL IVP PRN (17:56)
[2021-12-13] MEDS ORDERED: SODIUM CHLORIDE 0.9% 1,000 ML IV STA (19:49)
[2021-12-13] MEDS ORDERED: levETIRAcetam IV 500 MG in SODIUM CHLORIDE 0.9% 100 ML IVPB STA (20:04)
[2021-12-13 22:11] LABS: Basophils % (A) 0 %; Eosinophils % (A) 0 %; HCT 31.8 % (34.0-46.0); HGB 10.4 gm/dL (11.4-16.0); Lymphocytes # (A) 0.7 k/uL (1.0-4.8); Lymphocytes % (A) 10 %; MCH 29.4 pg (25.0-35.0); MCHC 32.8 g/dL (31.0-37.0); MCV 89.7 fL (80.0-100.0); Monocytes # (A) 0.3 k/uL (0-1.0); Monocytes % (A) 4 %; Neutrophils # (A) 5.8 k/uL (1.3-7.7); Neutrophils % (A) 84 %; Platelet Count 325 k/uL (150-450); RBC 3.54 m/uL (3.80-5.40); RDW 14.4 % (11.5-15.5); WBC 6.9 k/uL (3.8-10.6)
[2021-12-13 22:12] LABS: African American GFR (CKD) >90 (>60 ml/min/1.73 sqM); Amylase 31 U/L (30-110); Anion Gap 8 mmol/L; Blood Urea Nitrogen 13 mg/dL (7-17); Carbon Dioxide 25 mmol/L (22-30); Chloride 104 mmol/L (98-107); Glucose 135 mg/dL (74-99); Lipase 57 U/L (23-300); Non-African American GFR(CKD) >90 (>60 ml/min/1.73 sqM); Potassium 3.4 mmol/L (3.5-5.1); Sodium 137 mmol/L (137-145)
[2021-12-13 22:15] LABS: Appearance,Urine Clear (Clear); Bilirubin,Urine 1+ (Negative); Blood,Urine Trace (Negative); Color,Urine Yellow; Glucose,Urine (UA) Negative (Negative); Leukocyte Esterase,Urine Small (Negative); Mucus,Urine Rare /hpf; Nitrite,Urine Negative (Negative); PH, Urine 5.5 (5.0-8.0); Protein,Urine 1+ (Negative); RBC,Urine 9 /hpf (0-5); Squamous Epithelial Cell,Urine 6 /hpf (0-4); WBC,Urine 4 /hpf (0-5)
[2021-12-13 22:23] LABS: Ketones,Urine 2+ (Negative); Specific Gravity,Urine >1.050 (1.001-1.035)
[2021-12-13] MEDS: KETOROLAC 15 MG/ML 1 ML VIAL IVP SCH (23:50)
--- NOTE | 2021-12-14 01:22 | HP ---
HISTORY AND PHYSICAL DATE OF SERVICE: 12/13/2021 CHIEF COMPLAINT: The patient presented in a wheelchair, brought by her son with the chief complaint of nausea, vomiting and diarrhea that started at 7 a.m. this morning. HISTORY OF PRESENT ILLNESS: This 66-year-old white female presented in the emergency room in a wheelchair, brought by her son, with persistent nausea and vomiting and diarrhea and she was soiled. She had had 3 to 4 loose watery bowel movements and she had abdominal pain. She was consistently vomiting with dry heaving, non-bloody. She had more than 10 episodes of vomiting. She has not been taking any antibiotic in the last 2 to 3 weeks. The patient denied any chest pain, burning sensation with urination or blood in the urine. She felt feverish and sweaty, and in the ER her temperature was mildly elevated, 100 and above. She denied any shortness of breath. PAST MEDICAL HISTORY: Cholecystectomy. She denied any previous bowel obstruction or pancreatitis or kidney stone or kidney infection. She never smoked. Her past medical history includes: 1. Seizure disorder, treated by Dr. Molina, neurologist, with [facility]. 2. Hyperlipidemia with xanthelasma and treated with atorvastatin. 3. Diabetes, type 2, on glipizide. 4. History of anxiety and depression. 5. Hypertension with hypertensive heart disease. 6. Vitamin D insufficiency. 7. Chronic pain syndrome. ALLERGIES: MUSHROOMS AND CHLORHEXIDINE, both causing itching. REVIEW OF SYSTEMS: The patient had abdominal pain in the right side mid abdomen associated with nausea and vomiting, persistent. GI: History of loose bowel and diarrhea with nausea and vomiting. No history of recent antibiotic. MUSCULOSKELETAL: She has history of surgery on her knees with arthroplasty; however, she is recovered. She has past history of bilateral resection of the breast secondary to breast cancer. History of seizure disorder. History of stroke in 03/2014. Head injury. Brain aneurysm in 2007. Meniere's disease. Osteoarthritis. Persistent hypertension. No history of smoking. No asthma. No emphysema. She has a history of tonsillectomy, hysterectomy, history of section, bowel resection x2 and history of bladder suspension. She has history of anxiety and depression. No alcohol intake. No smoking. No drug use. Family history is positive for cancer in her mother and father. She has one son. PHYSICAL EXAMINATION: Head was normocephalic, atraumatic. Pupils equal, reactive. Oropharynx normal with natural teeth. Trial placement of NG tube failed, and the patient is n.p.o. with suspicion of small bowel obstruction. Neck was supple. No JVD. No thyromegaly. No lymphadenopathy. However, she appeared to be dehydrated. RESPIRATORY: Normal breath sounds. No respiratory distress. No stridor. No rhonchi. No rales. CARDIOVASCULAR: Normal heart rate. She was tachycardic on presentation in the ER; however, improved. She has history of hypertension with PMI in the fifth intercostal space outside midclavicular line. ABDOMEN: Tenderness on the right mid abdomen with positive bowel sounds. BACK EXAM: Negative. Multiple keratoses. NEUROLOGICAL EXAM: She is alert, oriented, moving 4 extremities. Cranial nerves with no lateralizing sign. PSYCHIATRY: She is anxious. SKIN: No rash, but multiple moles and keratoses. VITAL SIGNS: On admission, her pulse rate was 126, respiratory rate 22, blood pressure 123/75 with the pulse ox 99%. Gradually subsequently her pulse rate went down to 87, respiratory rate 20 per minute, and blood pressure 172/74, and pulse ox was 99%. The patient in the ER was treated with Zofran, which improved her nausea and vomiting temporarily, but she soiled with stools and they did order a CT scan of the abdomen. EKG was negative and troponin was normal. However, the white count was 12.5 with leukocytosis. Her normal hemoglobin and the CT scan of the abdomen indicated that she had dilated loops in the duodenum measuring 3.2 cm with mild wall thickening. The ileum was normal, large bowel normal, and there was suspicion of enteritis. No lymph node. Aorta is normal. Osseous structures normal. There is dilated loop in the duodenum measuring 3.2 cm with mild thickening, and that could be associated with enteritis. However, also clinically with the persistent nausea and vomiting could be associated with small bowel obstruction. ASSESSMENT: 1. Rule out small bowel obstruction. 2. Enteritis. 3. Persistent nausea and vomiting. 4. Leukocytosis. 5. Dehydration. 6. Carbon dioxide is 19, with the possibility of metabolic acidosis, and we will be requesting lactic acid as well to be done. Influenza A was not detected. Influenza B was not detected. RSV was not detected. COVID test not detected. PLAN: 1. On n.p.o. except ice chips. 2. Repeat the small-bowel x-ray and abdominal x-ray in a.m. 3. Consultation with the on-call, Dr. Levi, and we will ask Dr. Levi to see the patient and evaluate her from the surgical point of view. Meanwhile, monitoring the patient. Depending on her improvement, further additions. Will repeat the BMP in the morning. They hydrated her with 130 mL/hour and subsequently we cut it down to 75 mL/hour. Further laboratory testing was done with serum amylase and serum lipase and also procalcitonin; a blood culture as well and urine culture and sensitivity. In the ER her troponin 1 was normal. No evidence of chest pain. We held all home medications and changed some of them to IV temporarily until the patient is evaluated for small bowel obstruction. Also sent a stool for C difficile and fecal leukocytes to rule out any infection. MMODL / IJN: [id number] /
[2021-12-14] MEDS: ONDANSETRON 4 MG/2 ML VIAL IVP PRN ×2 (03:20→13:36)
[2021-12-14] MEDS: KETOROLAC 15 MG/ML 1 ML VIAL IVP SCH ×4 (05:42→23:55)
--- NOTE | 2021-12-14 08:10 | XR ---
EXAMINATION TYPE: XR abdomen acute w cxr DATE OF EXAM: 12/14/2021 COMPARISON: CT 12/13/2021 HISTORY: Epigastric pain, intractable nausea and vomiting TECHNIQUE: Supine, upright, and runnel chest views of the abdomen and chest are obtained on a total 4 images. FINDINGS: Chest x-ray shows surgical clips in the right axilla and right upper quadrant, metallic co ils present over the lower abdomen. The heart is enlarged. There is no evidence for pneumoperitoneum. The bowel gas pattern is unremarkable as there is air throughout nondilated small and large bowel. There are some air fluid levels without significant change in bowel distention. No mass effects are seen. No unusual calcifications. IMPRESSION: Cardiomegaly. Findings may be due to enteritis or ileus, correlate, follow-up as indicated
[2021-12-14] MEDS: PANTOPRAZOLE 40 MG/10 ML VIAL IVP SCH (09:39)
[2021-12-14] MEDS: levETIRAcetam IV 500 MG in SALINE 1 100ML.BAG IVPB SCH ×2 (09:39→22:01)
[2021-12-14] MEDS: INSULIN ASPART (NovoLOG) 100 UNIT/ML VIAL SQ SCH ×3 (09:39→18:05)
[2021-12-14] MEDS ORDERED: POTASSIUM CHLORIDE ER 20 MEQ TAB.ER PO STA (11:56)
[2021-12-14 11:57] LABS: Glucose,Whole Blood 188 mg/dL (75-99)
--- NOTE | 2021-12-14 11:57 | P.GSCN ---
History of Present Illness Consult date: 12/14/21 History of present illness: CHIEF COMPLAINT: Nausea, vomiting and diarrhea HISTORY OF PRESENT ILLNESS: This is a 66-year-old female who presented to hospital with complaints of intractable vomiting and diarrhea that started at 7 PM evening and lasted until about 11 PM. Patient reports no blood in the emesis or stool. She denies any abdominal pain. She has been having chills and fevers. She denies any sick contacts. Her last emesis was last night and i t was mostly bile. Diarrhea has also resolved. She did have a temp of 100.3. WBC elevated at 20.5 on admission. She had CAT scan completed with IV contrast that revealed dilated loops of the jejunum measuring up to 3.2 cm with mild wall thickening. Findings could reflect enteritis. No obvious transition zone suggested at the time to indicate obstructive change. Patient reports that she was scheduled to have EGD and colonoscopy outpatient with Dr. Harris next week. She reports that she's been dealing with chronic nausea for about 2 months. Patient has never had an EGD. Last colonoscopy was in 2019 with evidence of internal hemorrhoids. Patient does have a history of colon cancer with bowel resection and had undergone chemotherapy. She also has history of breast cancer, ovarian cancer and uterine cancer. PAST MEDICAL HISTORY: See list. PAST SURGICAL HISTORY: See list. MEDICATIONS: See list. ALLERGIES: See list. SOCIAL HISTORY: No illicit drug use. REVIEW OF SYSTEMS: CONSTITUTIONAL: Denies fever or chills. HEENT: Denies blurred vision, vision changes, or eye pain. Denies hemoptysis CARDIOVASCULAR: Denies chest pain or pressure. RESPIRATORY: No shortness of breath. GASTROINTESTINAL: See HPI for pertinent findings HEMATOLOGIC: Denies bleeding disorders. GENITOURINARY: Denies any blood in urine or increased urinary frequency. SKIN: Denies pruitis. Denies rash. PHYSICAL EXAM: VITAL SIGNS: Reviewed GENERAL: Well-developed in no acute distress. HEENT: No sclera icterus. Extraocular movements grossly intact. Moist buccal mucosa. Head is atraumatic, normocephalic. No nasal drainage. ABDOMEN: Soft. Nondistended. Nontender NEUROLOGIC: Alert and oriented. Cranial nerves II through XII grossly intact. LABORATORY DATA: WBC 2.5 down to 6.9 hemoglobin is 10.4 platelets 325 Sodium 137 potassium is 3.4 creatinine 0.56 LFTs normal Influenza, RSV and Covid testing negative IMAGING: Computed tomography scan abdomen results as stated above Abdominal x-ray cardiomegaly. Findings may be due to enteritis or ileus. Correlate clinically ASSESSMENT: 1. Nausea, vomiting and diarrhea possibly due to a gastroenteritis. Computed tomography scan did reveal dilated loops of the chair measuring up to 3.2 cm with mild wall thickening. 2. History of chronic nausea 3. History of colon cancer status post bowel resection 4. Multiple abdominal surgeries 5. History of breast cancer, ovarian and uterine cancer 6. Hypokalemia PLAN: -Further recommendations forthcoming per surgeon -Okay to start a liquid diet -Agree with checking stool studies -Continue IV fluid hydration -Replace potassium Thank you for this consultation Physician Recreation Professor note has been reviewed by physician. Signing provider agrees with the documented findings, assessment, and plan of care. I have personally seen and examined the patient, reviewed the [employer] /PAs history, exam and MDM and agree with the assessment and plan as written. Based on total visit time, I have performed more than 50% of the visit. As above: Patient presents to the hospital with a 3 month history of nausea and rare episodes of vomiting. Beginning yesterday morning however she started with emesis that lasted the entire day to the point that she came to the hospital for evaluation. There was no pain in the abdomen until later yesterday evening. She believes the pain is from vomiting so much. She does have a low-grade fever 100.3. She was recently hospitalized for influenza. Patient with history of previous partial colectomy. No recent endoscopy. CAT scan shows mildly dilated loops of proximal jejunum with slight wall thickening, some fluid-filled loops of bowel distal to that as well without transition point noted. White blood cell count slightly elevated yesterday. Lactic acid normal. Patient was doing well this morning and was started on a liquid diet. Following that the patient developed recurrent symptoms of nausea and vomiting. We'll make patient nothing by mouth for now. Suspect gastroenteritis as the most likely etiology however we'll follow closely with you. Past Medical History Past Medical History: Cancer, CVA/TIA, Diabetes Mellitus, GERD/Reflux, Hyperlipidemia, Hypertension, Osteoarthritis (OA), Pneumonia, Seizure Disorder Additional Past Medical History / Comment(s): breast/colon/ovarian,uterine CA, no bp in rt arm. told she had a stroke 03/2014 "blood clot in back of head". hx o f head injury 3rd grade, pt states she has "slow thinking process"and seizures started after injury. -last seizure POSSIBLE FEBRUARY 2021 , hx back pain. brain aneurysm 2007,menieres disease, LOOSE STOOLS AND INCONTINENT OF URINE- PADS/DEPENDS History of Any Multi-Drug Resistant Organisms: None Reported Past Surgical History: Adenoidectomy, Appendectomy, Bladder Surgery, Bowel Resection, Breast Surgery, Section, Cholecystectomy, Hernia Repair, Hysterectomy, Orthopedic Surgery, Tonsillectomy Additional Past Surgical History / Comment(s): rt mastectomy , manpreet BREAST BX, MANPREET CATARACT SX, BLADDER SUSPENSION, bowel resection x2 d/t ca. Past Anesthesia/Blood Transfusion Reactions: Postoperative Nausea & Vomiting (PONV) Past Psychological History: Anxiety, Depression Additional Psychological History / Comment(s): . Smoking Status: Never smoker Past Alcohol Use History: None Reported Past Drug Use History: None Reported - Past Family History Mother Family Medical History: Cancer Father Family Medical History: Cancer Medications and Allergies Home Medications Medication Instructions Recorded Confirmed Type glipiZIDE [Glucotrol] 5 mg PO AC-BID 12/16/13 12/13/21 History levETIRAcetam [Keppra] 1,000 mg PO BID 12/16/13 12/13/21 History Atorvastatin [Lipitor] 20 mg PO HS 04/21/14 12/13/21 History Sertraline [Zoloft] 100 mg PO DAILY 12/16/18 12/13/21 History Enalapril [Vasotec] 20 mg PO BID 06/07/21 12/13/21 History Metoprolol Tartrate [Lopressor] 50 mg PO BID 06/07/21 12/13/21 History amLODIPine [Norvasc] 10 mg PO HS 06/07/21 12/13/21 History hydrALAZINE HCL [Apresoline] 100 mg PO TID 06/07/21 12/13/21 History metFORMIN HCL [Glucophage] 1,000 mg PO BID 06/07/21 12/13/21 History cloNIDine HCL [Catapres] 0.2 mg PO BID 10/08/21 12/13/21 History hydroCHLOROthiazide 25 mg PO DAILY 10/08/21 12/13/21 History Cholecalciferol [Vitamin D3 (25 50 mcg PO DAILY 11/13/21 12/13/21 History Mcg = 1000 Iu)] carBAMazepine [carBAMazepine ER] 600 mg PO BID 11/13/21 12/13/21 History traZODone HCL [Desyrel] 100 mg PO HS PRN 11/13/21 12/13/21 History Aspirin [Adult Low Dose Aspirin EC] 81 mg PO DAILY 12/13/21 12/13/21 History Diphenox-Atrop 2.5-0.025 mg 2 tab PO TID PRN 12/13/21 12/13/21 History [Lomotil] Ondansetron [Zofran] 4 mg PO Q8HR PRN 12/13/21 12/13/21 History oxyCODONE-APAP 7.5-325MG [Percocet 1 tab PO Q4H PRN 12/13/21 12/13/21 History 7.5-325 mg] Allergies Allergy/AdvReac Type Severity Reaction Status Date / Time chlorhexidine Allergy Itching Verified 12/13/21 14:01 Mushroom Allergy Itching Verified 12/13/21 14:01 Surgical - Exam Vital Signs Temp Pulse Resp BP Pulse Ox 97.9 F 126 H 22 123/75 99 12/13/21 10:08 12/13/21 10:08 12/13/21 10:08 12/13/21 10:08 12/13/21 10:08 Results - Labs 12/13/21 21:50 12/13/21 21:50 Abnormal Lab Results - Last 24 Hours (Table) 12/13/21 12/13/21 12/13/21 Range/Units 10:38 10:38 21:45 WBC 12.5 H (3.8-10.6) k/uL RBC (3.80-5.40) m/uL Hgb (11.4-16.0) gm/dL Hct (34.0-46.0) % Neutrophils # 11.3 H (1.3-7.7) k/uL Lymphocytes # 0.5 L (1.0-4.8) k/uL Potassium (3.5-5.1) mmol/L Carbon Dioxide 19 L (22-30) mmol/L Creatinine 0.51 L (0.52-1.04) mg/dL Glucose 205 H (74-99) mg/dL Calcium (8.4-10.2) mg/dL Alkaline Phosphatase 129 H (38-126) U/L Procalcitonin (0.02-0.09) ng/mL Ur Specific [place] >1.050 H (1.001-1.035) Urine Protein 1+ H (Negative) Urine Ketones 2+ H (Negative) Urine Blood Trace H (Negative) Urine Bilirubin 1+ H (Negative) Ur Leukocyte Esterase Small H (Negative) Urine RBC 9 H (0-5) /hpf Ur Squamous Epith Cells 6 H (0-4) /hpf Urine Mucus Rare H (None) /hpf 12/13/21 12/13/21 12/13/21 Range/Units 21:50 21:50 21:50 WBC (3.8-10.6) k/uL RBC 3.54 L (3.80-5.40) m/uL Hgb 10.4 L (11.4-16.0) gm/dL Hct 31.8 L (34.0-46.0) % Neutrophils # (1.3-7.7) k/uL Lymphocytes # 0.7 L (1.0-4.8) k/uL Potassium 3.4 L (3.5-5.1) mmol/L Carbon Dioxide (22-30) mmol/L Creatinine (0.52-1.04) mg/dL Glucose 135 H (74-99) mg/dL Calcium 7.0 L (8.4-10.2) mg/dL Alkaline Phosphatase (38-126) U/L Procalcitonin 0.66 H (0.02-0.09) ng/mL Ur Specific [place] (1.001-1.035) Urine Protein (Negative) Urine Ketones (Negative) Urine Blood (Negative) Urine Bilirubin (Negative) Ur Leukocyte Esterase (Negative) Urine RBC (0-5) /hpf Ur Squamous Epith Cells (0-4) /hpf Urine Mucus (None) /hpf Diabetes panel 12/13/21 12/13/21 12/13/21 Range/Units 10:38 21:50 21:50 Sodium 138 137 (137-145) mmol/L Potassium 4.5 3.4 L (3.5-5.1) mmol/L Chloride 104 104 (98-107) mmol/L Carbon Dioxide 19 L 25 (22-30) mmol/L BUN 14 13 (7-17) mg/dL Creatinine 0.51 L 0.56 (0.52-1.04) mg/dL Glucose 205 H 135 H (74-99) mg/dL Hemoglobin A1c 5.8 (0.0-6.0) % Calcium 8.5 7.0 L (8.4-10.2) mg/dL AST 27 (14-36) U/L ALT 27 (4-34) U/L Alkaline Phosphatase 129 H (38-126) U/L Total Protein 6.9 (6.3-8.2) g/dL Albumin 4.1 (3.5-5.0) g/dL Calcium panel 12/13/21 12/13/21 Range/Units 10:38 21:50 Calcium 8.5 7.0 L (8.4-10.2) mg/dL Albumin 4.1 (3.5-5.0) g/dL Pituitary panel 12/13/21 12/13/21 Range/Units 10:38 21:50 Sodium 138 137 (137-145) mmol/L Potassium 4.5 3.4 L (3.5-5.1) mmol/L Chloride 104 104 (98-107) mmol/L Carbon Dioxide 19 L 25 (22-30) mmol/L BUN 14 13 (7-17) mg/dL Creatinine 0.51 L 0.56 (0.52-1.04) mg/dL Glucose 205 H 135 H (74-99) mg/dL Calcium 8.5 7.0 L (8.4-10.2) mg/dL Adrenal panel 12/13/21 12/13/21 Range/Units 10:38 21:50 Sodium 138 137 (137-145) mmol/L Potassium 4.5 3.4 L (3.5-5.1) mmol/L Chloride 104 104 (98-107) mmol/L Carbon Dioxide 19 L 25 (22-30) mmol/L BUN 14 13 (7-17) mg/dL Creatinine 0.51 L 0.56 (0.52-1.04) mg/dL Glucose 205 H 135 H (74-99) mg/dL Calcium 8.5 7.0 L (8.4-10.2) mg/dL Total Bilirubin 0.8 (0.2-1.3) mg/dL AST 27 (14-36) U/L ALT 27 (4-34) U/L Alkaline Phosphatase 129 H (38-126) U/L Total Protein 6.9 (6.3-8.2) g/dL Albumin 4.1 (3.5-5.0) g/dL
[2021-12-14 14:40] LABS: Basophils % (A) 0 %; Eosinophils # (A) 0.1 k/uL (0-0.7); Eosinophils % (A) 3 %; HCT 31.1 % (34.0-46.0); HGB 10.2 gm/dL (11.4-16.0); Lymphocytes % (A) 26 %; MCH 29.4 pg (25.0-35.0); MCHC 32.7 g/dL (31.0-37.0); MCV 89.8 fL (80.0-100.0); Mean Platelet Volume 6.7; Monocytes # (A) 0.3 k/uL (0-1.0); Monocytes % (A) 7 %; Neutrophils # (A) 2.3 k/uL (1.3-7.7); Neutrophils % (A) 61 %; Platelet Count 296 k/uL (150-450); RBC 3.46 m/uL (3.80-5.40); RDW 14.4 % (11.5-15.5); WBC 3.7 k/uL (3.8-10.6)
[2021-12-14 14:47] LABS: African American GFR (CKD) >90 (>60 ml/min/1.73 sqM); Anion Gap 6 mmol/L; Blood Urea Nitrogen 9 mg/dL (7-17); Calcium 6.7 mg/dL (8.4-10.2); Carbon Dioxide 23 mmol/L (22-30); Chloride 108 mmol/L (98-107); Glucose 184 mg/dL (74-99); Lipase 54 U/L (23-300); Non-African American GFR(CKD) >90 (>60 ml/min/1.73 sqM); Potassium 3.2 mmol/L (3.5-5.1); Sodium 137 mmol/L (137-145)
--- NOTE | 2021-12-14 17:43 | PN ---
PROGRESS NOTE DATE OF SERVICE: 12/14/2021 She is FULL CODE. NEW DATA: Height 5 feet 2 inches, weight 80.286 kg. BSA is 1.81 m2. BMI 32.4 kg/m2 ALLERGY: CHLORHEXIDINE, MUSHROOMS. Patient was admitted because of small-bowel obstruction probably as well as possible enteritis. She was having severe abdominal pain as well as nausea, vomiting, persistent, as well as loose bowel movements and diarrhea. CT scan of the abdomen found that she had a fluid level in the small bowel in the jejunum area. They attributed that to enteritis; however, it looks like small-bowel obstruction. Patient was subsequently admitted from the ER to the floor with the consultation of Surgery, Dr. Levi, who did see her and today reevaluated her with another x-ray of the abdomen, and still she had some small bowel abnormality; and also on the examination she had tympanitic percussion of the abdomen, and with deep palpation she had some pain. Dr. Levi saw her and he put her on a clear liquid diet; and still has the positive tympanitic membrane and the pain is present with deep palpation. However, she is generally feeling better. We did stool testing on her. However, she did not have any bowel movement since yesterday and she is able to go to the bathroom and we requested stool for also Hemoccult. She had a significant drop in her white count as well as significant drop in the hemoglobin and hematocrit. Her white count on presentation was 12.5. Hemoglobin was 12.5. Subsequently her hemoglobin dropped to 10.4, 2 grams down, and her WBC 12.5 dropped to 6.9, and today her white count dropped to 3.7 and her hemoglobin dropped to 10.2, 2 grams dropping with just IV fluid at 75 mL/hour. However, she was hydrated in the ER. Her POC glucose was fluctuating and today it is 184, and she is covered with insulin to scale. She still was n.p.o. yesterday. Today Surgery put her on a clear liquid diet. Her hemoglobin A1c was 5.8 and her average blood sugar 121. Her calcium was 7 yesterday and today it dropped to 6.7. We will be further obtaining ionized calcium tomorrow and we will obtain the vitamin D level for evaluation. Her procalcitonin was found to be mildly elevated, 0.66, with the normal range at 0.02 to 0.09. Her urinalysis that was done yesterday indicated that specific gravity was elevated as well as ketone 2+, and there were some RBCs in the urine. Influenza A and B and RSV as well as coronavirus testing were all negative. The SARS-COV-2 PCR was negative. On today's [id number] examination, the patient was conscious, alert, oriented. She denied any vomiting, but she stated that she still had nausea. Today in the hand tube winder hour her temperature was 100.3 oral. Her blood pressure at that time was 164/92; however, lately it has been progressively increased to 191/69. Her oxygen saturation is 97, respiratory rate 18 per minute, nonlabored, and her pulse rate was 64. For that reason we started Vasotec 2.5 mg IV push q.6 hours if her blood pressure is above 140 systolic. On the examination, the head was normocephalic, atraumatic. Pupils equal, reactive. Oropharynx was negative. She had missing teeth with only one tooth present, hopefully for holding on dentures. The neck was supple. No JVD. No thyromegaly. No lymphadenopathy. Trachea midline. The chest showed bilateral mastectomy for breast cancer. Lungs were clear to auscultation and percussion. HEART: PMI in the fifth intercostal space. Normal S1, S2. No gallop. The abdomen is tympanitic on percussion today and with deep palpation she has some pain on the right close to the lower quadrant. Extremities have no edema and positive pulses. Neurologically she has no seizure disorder and no recurrence. With the history of seizure, she is on Keppra at this time IV piggyback. ASSESSMENT AND PLAN: 1. There is still some tympanitic percussion. 2. Patient is on clear liquid diet for a trial to see if she has improvement or not with bowel movement and passing gas normal at that time we will be increasing her activity and diet as well and resume her medication orally. For the time being, we are still cautious with the possibility of the small-bowel obstruction as well as the enteritis and we do not add any current medication until we see if this will be resolved on its own. The stool test was not done because patient did not have a bowel movement. Will continue today. We will see her tomorrow and will see if there is any improvement. MMCHARLEYL / IJN: [id number] /
[2021-12-14 17:45] LABS: Glucose,Whole Blood 147 mg/dL (75-99)
[2021-12-14] MEDS: POTASSIUM CHLORIDE 10 MEQ in WATER FOR INJECTION 1 100ML.BAG IVPB SCH ×3 (18:05→22:35)
[2021-12-14] MEDS: ENALAPRILAT 1.25 MG/ML 1 ML VIAL IVP PRN (19:53)
[2021-12-15] MEDS: ENALAPRILAT 1.25 MG/ML 1 ML VIAL IVP PRN ×2 (02:45→08:11)
[2021-12-15] MEDS: KETOROLAC 15 MG/ML 1 ML VIAL IVP SCH ×2 (05:36→13:10)
[2021-12-15 06:50] LABS: Basophils % (A) 1 %; Eosinophils # (A) 0.3 k/uL (0-0.7); Eosinophils % (A) 6 %; HCT 32.9 % (34.0-46.0); HGB 10.4 gm/dL (11.4-16.0); Lymphocytes # (A) 1.2 k/uL (1.0-4.8); Lymphocytes % (A) 31 %; MCH 28.8 pg (25.0-35.0); MCHC 31.7 g/dL (31.0-37.0); MCV 90.7 fL (80.0-100.0); Monocytes # (A) 0.3 k/uL (0-1.0); Monocytes % (A) 8 %; Neutrophils % (A) 51 %; Platelet Count 283 k/uL (150-450); RBC 3.63 m/uL (3.80-5.40)
[2021-12-15 07:02] LABS: African American GFR (CKD) >90 (>60 ml/min/1.73 sqM); Anion Gap 11 mmol/L; Blood Urea Nitrogen 7 mg/dL (7-17); Calcium 7.2 mg/dL (8.4-10.2); Carbon Dioxide 21 mmol/L (22-30); Chloride 109 mmol/L (98-107); Glucose 128 mg/dL (74-99); Non-African American GFR(CKD) >90 (>60 ml/min/1.73 sqM); Potassium 3.9 mmol/L (3.5-5.1); Sodium 141 mmol/L (137-145)
[2021-12-15 07:03] LABS: Ionized Calcium 4.4 mg/dL (4.5-5.3)
[2021-12-15 07:37] LABS: Glucose,Whole Blood 141 mg/dL (75-99)
[2021-12-15] MEDS: INSULIN ASPART (NovoLOG) 100 UNIT/ML VIAL SQ SCH ×3 (08:04→17:52)
[2021-12-15] MEDS: levETIRAcetam IV 500 MG in SALINE 1 100ML.BAG IVPB SCH (08:12)
[2021-12-15] MEDS: PANTOPRAZOLE 40 MG/10 ML VIAL IVP SCH (08:12)
--- NOTE | 2021-12-15 09:49 | P.PN ---
Subjective Progress Note Date: 12/15/21 Principal diagnosis: Enteritis Patient doing better today. No pain at this time. Last episode of vomiting was yesterday afternoon. She is tolerating ice chips. She is passing flatus. No bowel movement. She is afebrile. Objective - Vital Signs Vital signs: Vital Signs Temp 98.6 F 12/15/21 07:00 Pulse 54 L 12/15/21 07:00 Resp 18 12/15/21 07:00 BP 193/78 12/15/21 07:00 Pulse Ox 96 12/15/21 07:00 Intake & Output 12/14/21 12/15/21 12/15/21 18:59 06:59 18:59 Intake Total 600 Balance 600 Intake: Oral 600 Other: # Voids 2 2 - Exam Abdomen: Soft, nontender, nondistended - Labs CBC & Chem 7: 12/15/21 06:10 12/15/21 06:10 Labs: Abnormal Lab Results - Last 24 Hours (Table) 12/14/21 12/14/21 12/14/21 Range/Units 11:55 14:17 14:17 WBC 3.7 L (3.8-10.6) k/uL RBC 3.46 L (3.80-5.40) m/uL Hgb 10.2 L (11.4-16.0) gm/dL Hct 31.1 L (34.0-46.0) % Potassium 3.2 L (3.5-5.1) mmol/L Chloride 108 H (98-107) mmol/L Carbon Dioxide (22-30) mmol/L Creatinine 0.39 L (0.52-1.04) mg/dL Glucose 184 H (74-99) mg/dL POC Glucose (mg/dL) 188 H (75-99) mg/dL Calcium 6.7 L (8.4-10.2) mg/dL Ionized Calcium Major (4.5-5.3) mg/dL 12/14/21 12/15/21 12/15/21 Range/Units 17:40 06:10 06:10 WBC (3.8-10.6) k/uL RBC 3.63 L (3.80-5.40) m/uL Hgb 10.4 L (11.4-16.0) gm/dL Hct 32.9 L (34.0-46.0) % Potassium (3.5-5.1) mmol/L Chloride 109 H (98-107) mmol/L Carbon Dioxide 21 L (22-30) mmol/L Creatinine 0.41 L (0.52-1.04) mg/dL Glucose 128 H (74-99) mg/dL POC Glucose (mg/dL) 147 H (75-99) mg/dL Calcium 7.2 L (8.4-10.2) mg/dL Ionized Calcium Major 4.4 L (4.5-5.3) mg/dL 12/15/21 Range/Units 07:36 WBC (3.8-10.6) k/uL RBC (3.80-5.40) m/uL Hgb (11.4-16.0) gm/dL Hct (34.0-46.0) % Potassium (3.5-5.1) mmol/L Chloride (98-107) mmol/L Carbon Dioxide (22-30) mmol/L Creatinine (0.52-1.04) mg/dL Glucose (74-99) mg/dL POC Glucose (mg/dL) 141 H (75-99) mg/dL Calcium (8.4-10.2) mg/dL Ionized Calcium Major (4.5-5.3) mg/dL Microbiology - Last 24 Hours (Table) 12/13/21 22:16 Blood Culture - Preliminary Blood No Growth after 24 hours 12/13/21 21:45 Blood Culture - Preliminary Blood No Growth after 24 hours Assessment and Plan (1) Enteritis Narrative/Plan: Patient doing better at this time. Begin clear liquid diet. Ambulate. Will follow. Current Visit: Yes Status: Acute Code(s): K52.9 - NONINFECTIVE GASTROENTERITIS AND COLITIS, UNSPECIFIED SNOMED Code(s): 64045880
[2021-12-15 12:10] LABS: Glucose,Whole Blood 181 mg/dL (75-99)
[2021-12-15] MEDS ORDERED: oxyCODONE-APAP 7.5-325MG 1 EACH TAB PO PRN (13:42)
[2021-12-15] MEDS ORDERED: ONDANSETRON 4 MG TAB PO PRN (13:42)
[2021-12-15] MEDS: levETIRAcetam 500 MG TAB PO SCH ×2 (14:32→19:41)
[2021-12-15] MEDS: cloNIDine HCL 0.1 MG TAB PO SCH ×2 (14:34→19:41)
[2021-12-15] MEDS: lisinopriL 20 MG TAB PO SCH ×2 (14:34→19:42)
--- NOTE | 2021-12-15 16:12 | PN ---
PROGRESS NOTE DATE OF SERVICE: 12/15/2021 FULL CODE. DATA: Height 5 feet 2 inches, weight 80.286 kg, BSA 1.81 m2 and BMI 32.4 kg/m2. ALLERGIES: CHLORHEXIDINE AND MUSHROOMS. The patient was seen today and evaluated and also was seen today by Dr. Levi. Currently the patient has no nausea, no vomiting, but still bowel sounds are not present and no bowel movement. She passed gas with the underlying highly possible small-bowel obstruction. The patient did not have any diarrhea since admission and stools have not been collected. The idea of enteritis is not present. The white count went down on the next day to 6.9, and also on December 14 it went to 4. Her hemoglobin drop with hydration with underlying dehydration to 10.4 and the hematocrit 32.9 on December 14. Her electrolytes: sodium 141, potassium 3.9, chloride 109, carbon dioxide 21 and her BUN is 7, creatinine 0.41. Glucose 128. Her ionized calcium because of hypocalcemia was 4.4, which is still low. Hemoglobin A1c was normal at 5.8, but she had hyperglycemia, covered with insulin. Her lipase was 54 and her liver enzymes were normal. Her temperature was high on admission, which has subsided. Today her temperature is 98.6 F oral. Her heart rate is 54 without beta blockers and without the clonidine. Respiratory rate is 18 per minute, nonlabored. Her blood pressure is 190/79 with a mean 116. Her pulse ox is 96% on room air. Patient was seen today by Dr. Levi and is allowed to have full liquid diet as well as ambulation because of her bowel sounds that are still diminished to absent as well as no bowel movement and meanwhile she is passing gas. On examination, the patient was conscious, alert, oriented, sitting on the edge of the bed, able to drink her liquids, and has she started to ambulate. She has chronic persistent hypertension, using multiple medications. With the allowance of drinking, we will be restarting her medication; except some of the medication has some interaction. We also held the beta kellie because she was already bradycardic. But she is continued on the clonidine for controlling her blood pressure, as her blood pressure is high at 190/79. HEAD: Normocephalic, atraumatic. Pupils equal, reactive. Oropharynx was negative. Neck was supple. No JVD. No thyromegaly. No lymphadenopathy. Trachea midline. Chest was clear to auscultation and percussion. No wheezes. No rhonchi. HEART: Regular sinus rhythm with bradycardia, as mentioned. The abdomen was soft. No current tenderness can be elicited. However, the bowel sounds are still absent. Mildly tympanitic. EXTREMITIES: No edema and positive pulses. ASSESSMENT: 1. Her POC blood sugar was elevated. It is monitored and covered with insulin. She was before on glipizide. We will be resuming her medication once she is able to eat to avoid hypoglycemia and continue with the insulin. 2. Hypertension, not controlled. Will resume all her home blood pressure medications in an attempt to get blood pressure stability. 3. Jejunal obstruction. Still we are cautious and Dr. Lvei is following the patient and will continue the followup as well as ambulation and full liquid diet and see what is coming out of that as well. MMODL / IJN: [id number] /
[2021-12-15] MEDS: hydrALAZINE HCL 50 MG TAB PO SCH ×2 (16:24→22:07)
[2021-12-15 17:44] LABS: Glucose,Whole Blood 249 mg/dL (75-99)
[2021-12-15] MEDS: carBAMazepine 300 MG CPMP.12HR PO SCH (19:41)
[2021-12-15] MEDS: amLODIPine 10 MG TAB PO SCH (19:41)
[2021-12-15] MEDS: ATORVASTATIN 20 MG TAB PO SCH (19:41)
[2021-12-16 07:14] LABS: Glucose,Whole Blood 135 mg/dL (75-99)
[2021-12-16] MEDS: INSULIN ASPART (NovoLOG) 100 UNIT/ML VIAL SQ SCH ×3 (07:23→17:19)
[2021-12-16] MEDS: CHOLECALCIFEROL 25 MCG (1000 IU) TABLET PO SCH (09:48)
[2021-12-16] MEDS: levETIRAcetam 500 MG TAB PO SCH ×2 (09:48→19:56)
[2021-12-16] MEDS: cloNIDine HCL 0.1 MG TAB PO SCH ×2 (09:48→19:56)
[2021-12-16] MEDS: hydrALAZINE HCL 50 MG TAB PO SCH ×3 (09:48→22:52)
[2021-12-16] MEDS: ASPIRIN 81 MG PO SCH (09:48)
[2021-12-16] MEDS: carBAMazepine 300 MG CPMP.12HR PO SCH ×2 (09:49→19:56)
[2021-12-16] MEDS: lisinopriL 20 MG TAB PO SCH ×2 (09:49→19:57)
--- NOTE | 2021-12-16 10:44 | P.PN ---
Subjective Progress Note Date: 12/16/21 Principal diagnosis: Enteritis Patient doing well today. No further nausea or vomiting. She is hungry. No abdominal pain. Objective - Vital Signs Vital signs: Vital Signs Temp 98.3 F 12/16/21 07:39 Pulse 50 L 12/16/21 08:00 Resp 18 12/16/21 08:00 BP 186/87 12/16/21 07:39 Pulse Ox 96 12/16/21 07:39 Intake & Output 12/15/21 12/16/21 12/16/21 18:59 06:59 18:59 Intake Total 740 240 Balance 740 240 Intake: Oral 740 240 Other: Voiding Method Toilet Toilet Toilet # Voids 3 2 - Exam Abdomen: Soft, nondistended, nontender - Labs CBC & Chem 7: 12/15/21 06:10 12/15/21 06:10 Labs: Abnormal Lab Results - Last 24 Hours (Table) 12/15/21 12/15/21 12/15/21 Range/Units 06:10 12:09 17:42 POC Glucose (mg/dL) 181 H 249 H (75-99) mg/dL Vitamin D 25-Hydroxy 28.5 L (30.0-100.0) ng/mL 12/16/21 Range/Units 07:13 POC Glucose (mg/dL) 135 H (75-99) mg/dL Vitamin D 25-Hydroxy (30.0-100.0) ng/mL Microbiology - Last 24 Hours (Table) 12/13/21 22:16 Blood Culture - Preliminary Blood No Growth after 48 hours 12/13/21 21:45 Blood Culture - Preliminary Blood No Growth after 48 hours Assessment and Plan (1) Enteritis Narrative/Plan: Patient doing well at this time. Gradually advance diet as tolerated. May discharge tolerates. Outpatient EGD and colonoscopy will be arranged. Current Visit: Yes Status: Acute Code(s): K52.9 - NONINFECTIVE GASTROENTERITIS AND COLITIS, UNSPECIFIED SNOMED Code(s): 92277396
[2021-12-16 12:21] LABS: Glucose,Whole Blood 202 mg/dL (75-99)
--- NOTE | 2021-12-16 13:33 | P.PN ---
Subjective Progress Note Date: 12/16/21 (Small bowel obstruction/gastroenteritis in active) Progress note date of service 12/16/[address] Siegel. Patient seen in [id number] evaluated No nausea no vomiting no bowel movement, intermittent passing gases, tolerated clear liquid diet and advanced to full liquid diet. To be advanced 50 diet tomorrow with the hope of bowel movement. Dr. Levi surgery saw her today as well. Patient with bradycardia no beta blockers but she is on clonidine. Temperature 98.3 and 40, respiratory rate 18/m, we resumed all her blood pressure medication except the beta blockers still her blood pressure is fluctuating between 164/72 and 147/66 and 186/87. Oxygen saturation 96% on room air. She is conscious alert oriented 3 ambulatory. On the exam Head was normocephalic atraumatic pupils equal reactive conjunctiva was pink sclera was nonicteric Neck was supple no JVD no thyromegaly no lymphadenopathy trachea midline. Chest clear to auscultation and percussion, absent bilateral breast with the his tory of medical mastectomy secondary to breast cancer. Heart regular sinus rhythm however hypertension still persistent despite that resuming hold her medication will still monitoring and checking for tomorrow. Abdomen still distended, on percussion tender that thick. Bowel sound could not be heard on the 4 quadrants and suprapubic Extremities no edema. Pulses No diarrhea no bowel movement, stool sample has not been done because of no loose bowels since admission to the hospital. Assessment: #1 gastroenteritis his elevated temperature with nausea and vomiting and diarrhea which all has been resolved without antibiotic, could be viral #2 dilated loops of jejunum measuring 3.2 cm with mild wall thickening. With the possibility of obstruction versus ileus currently no bowel sounds no bowel movement. #3 diabetes mellitus covered with insulin with a hemoglobin A1c 5.8. And she resumed her medication #4 bilateral breast cancer status post resection. #5 hypertension was hypertensive heart disease. #6 chronic pain syndrome #7 recent history of right total knee arthroplasty by the orthopedic associated. Plan: #1 ambulate as tolerated #2 continue full liquid diet and possibility of advance diet tomorrow #3 if there is bowel movement and bowel sounds probably will be discharging home however if the x-ray of the abdominal series has continue to have the distention hopefully for further action will be done, we anticipate the good side of it and to be improved and to be discharged in 24 hours to 48 hour period after resuming her full regular diet. Objective - Vital Signs Vital signs: Vital Signs Temp 98.3 F 12/16/21 07:39 Pulse 50 L 12/16/21 08:00 Resp 18 12/16/21 08:00 BP 186/87 12/16/21 07:39 Pulse Ox 96 12/16/21 07:39 Intake & Output 12/15/21 12/16/21 12/16/21 18:59 06:59 18:59 Intake Total 740 240 Balance 740 240 Intake: Oral 740 240 Other: Voiding Method Toilet Toilet Toilet # Voids 3 2 - Labs CBC & Chem 7: 12/15/21 06:10 12/15/21 06:10 Labs: Abnormal Lab Results - Last 24 Hours (Table) 12/15/21 12/15/21 12/16/21 Range/Units 06:10 17:42 07:13 POC Glucose (mg/dL) 249 H 135 H (75-99) mg/dL Vitamin D 25-Hydroxy 28.5 L (30.0-100.0) ng/mL 12/16/21 Range/Units 12:19 POC Glucose (mg/dL) 202 H (75-99) mg/dL Vitamin D 25-Hydroxy (30.0-100.0) ng/mL Microbiology - Last 24 Hours (Table) 12/13/21 22:16 Blood Culture - Preliminary Blood No Growth after 48 hours 12/13/21 21:45 Blood Culture - Preliminary Blood No Growth after 48 hours
[2021-12-16 16:57] LABS: Glucose,Whole Blood 123 mg/dL (75-99)
[2021-12-16] MEDS: glipiZIDE 5 MG TAB PO SCH (17:41)
[2021-12-16] MEDS: ATORVASTATIN 20 MG TAB PO SCH (19:56)
[2021-12-16] MEDS: amLODIPine 10 MG TAB PO SCH (19:56)
[2021-12-16 21:06] LABS: Glucose,Whole Blood 126 mg/dL (75-99)
[2021-12-17 07:04] LABS: Basophils # (A) 0.1 k/uL (0-0.2); Basophils % (A) 1 %; Eosinophils # (A) 0.2 k/uL (0-0.7); Eosinophils % (A) 3 %; HCT 33.7 % (34.0-46.0); HGB 11.1 gm/dL (11.4-16.0); Lymphocytes # (A) 1.9 k/uL (1.0-4.8); Lymphocytes % (A) 32 %; Mean Platelet Volume 7.9; Monocytes # (A) 0.4 k/uL (0-1.0); Monocytes % (A) 7 %; Neutrophils # (A) 3.3 k/uL (1.3-7.7); Neutrophils % (A) 55 %; Platelet Count 353 k/uL (150-450); RBC 3.82 m/uL (3.80-5.40); RDW 14.2 % (11.5-15.5)
[2021-12-17 07:08] LABS: African American GFR (CKD) >90 (>60 ml/min/1.73 sqM); Anion Gap 7 mmol/L; Blood Urea Nitrogen 5 mg/dL (7-17); Calcium 8.1 mg/dL (8.4-10.2); Carbon Dioxide 26 mmol/L (22-30); Chloride 106 mmol/L (98-107); Glucose 133 mg/dL (74-99); Non-African American GFR(CKD) >90 (>60 ml/min/1.73 sqM); Potassium 4.1 mmol/L (3.5-5.1); Sodium 139 mmol/L (137-145)
[2021-12-17 07:20] LABS: Glucose,Whole Blood 142 mg/dL (75-99)
[2021-12-17] MEDS: INSULIN ASPART (NovoLOG) 100 UNIT/ML VIAL SQ SCH ×3 (08:04→17:42)
--- NOTE | 2021-12-17 08:07 | XR ---
EXAMINATION TYPE: XR abdomen acute w cxr DATE OF EXAM: 12/17/2021 COMPARISON: NONE HISTORY: Pain TECHNIQUE: Frontal view of the chest and 3 views of the abdomen are obtained. FINDINGS: Heart is enlarged and there are surgical clips in the right axilla. Arthropathy of the shou lders. No pneumothorax or interstitial edema. No focal pneumonia. Bowel gas pattern nonspecific with no obstruction. Arthropathy of the hips with postsurgical change. Hypertrophic and degenerative lee es of the spine. Tiny calcification in the pelvis nonspecific. IMPRESSION: Nonspecific abdomen correlate for constipation.
[2021-12-17] MEDS: lisinopriL 20 MG TAB PO SCH (08:17)
[2021-12-17] MEDS: glipiZIDE 5 MG TAB PO SCH ×2 (08:17→16:43)
[2021-12-17] MEDS: CHOLECALCIFEROL 25 MCG (1000 IU) TABLET PO SCH (08:17)
[2021-12-17] MEDS: levETIRAcetam 500 MG TAB PO SCH (08:17)
[2021-12-17] MEDS: hydrALAZINE HCL 50 MG TAB PO SCH ×2 (08:18→16:43)
[2021-12-17] MEDS: ASPIRIN 81 MG PO SCH (08:18)
[2021-12-17] MEDS: cloNIDine HCL 0.1 MG TAB PO SCH (08:18)
[2021-12-17] MEDS: carBAMazepine 300 MG CPMP.12HR PO SCH (08:41)
--- NOTE | 2021-12-17 11:18 | P.PN ---
Subjective Progress Note Date: 12/17/21 CHIEF COMPLAINT: Enteritis HISTORY OF PRESENT ILLNESS: Patient denies any abdominal pain. Denies any r[place] sea or vomiting. She is tolerating a low fiber diet. Abdominal x-ray report states nonspecific abdomen correlate for constipation. Patient reports having flatus. It's been a few days since her last bowel movement. Afebrile. WBC 6.0 hemoglobin 11.1 platelets 353 PHYSICAL EXAM: VITAL SIGNS: Reviewed. GENERAL: Well-developed in no acute distress. HEENT: No sclera icterus. Extraocular movements grossly intact. Moist buccal mucosa. Head is atraumatic, normocephalic. ABDOMEN: Soft. Nondistended. Nontender. NEUROLOGIC: Alert and oriented. Cranial nerves II through XII grossly intact. ASSESSMENT: 1. Enteritis PLAN: -Continue low fiber diet -Recommend EGD and colonoscopy outpatient -Patient can be discharged from surgical standpoint Physician [employer] Researcher note has been reviewed by physician. Signing provider agrees with the documented findings, assessment, and plan of care. I have personally seen and examined the patient, reviewed the BASTER HAND /PAs history, exam and MDM and agree with the assessment and plan as written. Based on total visit time, I have performed more than 50% of the visit. As above: The patient doing well today. Tolerating full liquids. Agree with advancing to regular food. May discharge tolerates. Objective - Vital Signs Vital signs: Vital Signs Temp 98.2 F 12/17/21 07:41 Pulse 65 12/17/21 07:41 Resp 16 12/17/21 07:41 BP 178/75 12/17/21 07:41 Pulse Ox 97 12/17/21 07:41 Intake & Output 12/16/21 12/17/21 12/17/21 18:59 06:59 18:59 Intake Total 598 118 Balance 598 118 Intake: Oral 598 118 Other: Voiding Method Toilet Toilet Toilet # Voids 4 2 - Labs CBC & Chem 7: 12/17/21 06:08 12/17/21 06:08 Labs: Abnormal Lab Results - Last 24 Hours (Table) 12/16/21 12/16/21 12/16/21 Range/Units 12:19 16:56 21:03 Hgb (11.4-16.0) gm/dL Hct (34.0-46.0) % BUN (7-17) mg/dL Creatinine (0.52-1.04) mg/dL Glucose (74-99) mg/dL POC Glucose (mg/dL) 202 H 123 H 126 H (75-99) mg/dL Calcium (8.4-10.2) mg/dL 12/17/21 12/17/21 12/17/21 Range/Units 06:08 06:08 07:19 Hgb 11.1 L (11.4-16.0) gm/dL Hct 33.7 L (34.0-46.0) % BUN 5 L (7-17) mg/dL Creatinine 0.42 L (0.52-1.04) mg/dL Glucose 133 H (74-99) mg/dL POC Glucose (mg/dL) 142 H (75-99) mg/dL Calcium 8.1 L (8.4-10.2) mg/dL Microbiology - Last 24 Hours (Table) 12/13/21 22:16 Blood Culture - Preliminary Blood No Growth after 72 hours 12/13/21 21:45 Blood Culture - Preliminary Blood No Growth after 72 hours
[2021-12-17 12:08] LABS: Glucose,Whole Blood 166 mg/dL (75-99)
[2021-12-17] MEDS ORDERED: bisacodyL 10 MG SUPP RECTAL STA (12:49)
[2021-12-17] MEDS ORDERED: polyethylene glycoL 3350 17 GM POWD.PACK PO STA (12:51)
[2021-12-17 15:45] VITALS: BP 166/78; PULSE 75; RESP 18; TEMP 97.8
--- NOTE | 2021-12-17 16:25 | P.DS ---
Providers Date of admission: 12/14/21 13:34 Attending physician: Flynn Siegel Consults: 12/13/21 17:09 Consult Physician Routine Consulting Provider: Otilio Levi Consult Reason/Comments: enteritis, concern for SBO Do you want consulting provider notified?: Yes Primary care physician: Flynn Siegel Final diagnosis: #1 admitted with fever leukocytosis and frequent diarrhea which she stopped completely without bowel movement in the hospital and a stool test could not be obtained. #2 computed tomography scan of the abdomen on admission in the ER indicating dilated small bowel with the presence of pain in the jejunal area with suspicious of small bowel obstruction versus ileus. #3 enteritis was entertained however patient laboratory resolved her leukocytosis on the second day, no bowel movement no diarrhea, and a stool denis ple could not be obtained #4 hypertension with hypertensive heart disease #5 bilateral breast removed for cancer #6 chronic pain with a history of recent total knee arthroplasty #7 hyperglycemia and borderline diabetes mellitus with a hemoglobin A1c was 5.8 on admission. #8 seizure disorder with multiple medication seen and treated by Dr. Kenny neurologist. #9 gastroenteritis was considered on admission. And dehydration. Dehydration with repeated nausea and vomiting as well as watery diarrhea soils the her self and could not control it with the suspicious of gastroenteritis, and unable to keep any medicine or food. Consultation: Gen. surgery Dr. Levi. Hospital course: Admitted to the hospital [facility] floor 631, she was nothing by mouth except for ice chips, with no bowel movement and no farther diarrhea, IV fluid. And laboratory was ordered Subsequently patient had allowed to have clear liquid diet, she is tolerated with the still distention of the abdomen and tympanitic seen by Dr. Hart As patient progressively improving with the close observation and monitor, She developed constipation with no BM, nausea and vomiting has been somewhat subsided. Subsequently increase her intake was full liquid diet. She was ambulatory. Seen today by surgery group and the PA for Dr. Hart and cleared her for discharge Patient still had constipation with no BM's, treated with Dulcolax rectal 1 also she had MiraLAX with a good result. And patient had a BM On examination on discharge [id number] Head was normocephalic and atraumatic pupil was equal reactive, normal hearing able to eat and swallow Vital sign temperature 97.8 oral, heart rate 75 bpm respiratory rate 18/m nonlabored, pressure 166/78 with the marketed improvement on the Prezista and hypertension she will be followed as outpatient her pulse ox 98% on room air. On exam the head was normocephalic and traumatic as mentioned above Neck was supple no JVD no thyromegaly no lymphadenopathy trachea midline. Chest clear to auscultation and percussion no wheezes no rhonchi's Heart regular sinus rhythm Abdomen: We did x-ray of acute abdomen series today and was nonspecific bowel and with resolution of the probability of small bowel obstruction as well as enteritis. Extremities: No edema and positive pulses and ambulatory. Neurologically no lateralizing sign and stable. Assessment: And plan Patient currently stable general condition to be discharged home today. Cleared by surgical team Dr. Levi. Plan: We'll continue the current home medication We will see her this week and 2-3 days. Patient should call for appointment. No added medication than her home medication. Patient Condition at Discharge: Fair Plan - Discharge Summary New Discharge Prescriptions: New glipiZIDE [Glucotrol] 5 mg PO AC-BID tab Continue levETIRAcetam [Keppra] 1,000 mg PO BID Atorvastatin [Lipitor] 20 mg PO HS Sertraline [Zoloft] 100 mg PO DAILY Metoprolol Tartrate [Lopressor] 50 mg PO BID hydrALAZINE HCL [Apresoline] 100 mg PO TID Enalapril [Vasotec] 20 mg PO BID amLODIPine [Norvasc] 10 mg PO HS cloNIDine HCL [Catapres] 0.2 mg PO BID Ondansetron [Zofran] 4 mg PO Q8HR PRN PRN Reason: Nausea oxyCODONE-APAP 7.5-325MG [Percocet 7.5-325 mg] 1 tab PO Q4H PRN PRN Reason: pain Cholecalciferol [Vitamin D3 (25 Mcg = 1000 Iu)] 50 mcg PO DAILY traZODone HCL [Desyrel] 100 mg PO HS PRN PRN Reason: Insomnia carBAMazepine [carBAMazepine ER] 600 mg PO BID Aspirin [Adult Low Dose Aspirin EC] 81 mg PO DAILY Discontinued glipiZIDE [Glucotrol] 5 mg PO AC-BID metFORMIN HCL [Glucophage] 1,000 mg PO BID hydroCHLOROthiazide 25 mg PO DAILY Diphenox-Atrop 2.5-0.025 mg [Lomotil] 2 tab PO TID PRN PRN Reason: Loose Stool Discharge Medication List levETIRAcetam [Keppra] 1,000 mg PO BID 12/16/13 [History] Atorvastatin [Lipitor] 20 mg PO HS 04/21/14 [History] Sertraline [Zoloft] 100 mg PO DAILY 12/16/18 [History] Enalapril [Vasotec] 20 mg PO BID 06/07/21 [History] Metoprolol Tartrate [Lopressor] 50 mg PO BID 06/07/21 [History] amLODIPine [Norvasc] 10 mg PO HS 06/07/21 [History] hydrALAZINE HCL [Apresoline] 100 mg PO TID 06/07/21 [History] cloNIDine HCL [Catapres] 0.2 mg PO BID 10/08/21 [History] Cholecalciferol [Vitamin D3 (25 Mcg = 1000 Iu)] 50 mcg PO DAILY 11/13/21 [History] carBAMazepine [carBAMazepine ER] 600 mg PO BID 11/13/21 [History] traZODone HCL [Desyrel] 100 mg PO HS PRN 11/13/21 [History] Aspirin [Adult Low Dose Aspirin EC] 81 mg PO DAILY 12/13/21 [History] Ondansetron [Zofran] 4 mg PO Q8HR PRN 12/13/21 [History] oxyCODONE-APAP 7.5-325MG [Percocet 7.5-325 mg] 1 tab PO Q4H PRN 12/13/21 [History] glipiZIDE [Glucotrol] 5 mg PO AC-BID tab 12/17/21 [Rx] Follow up Appointment(s)/Referral(s): Otilio Levi MD [Medical Doctor] - 1 Week Flynn Siegel MD [Primary Care Provider] - 1-2 days
[2021-12-17 17:30] LABS: Glucose,Whole Blood 102 mg/dL (75-99)
--- NOTE | 2021-12-21 11:05 | CDI ---
Documentation Clarification Form Date: 12/21/2021 10:47:00 AM From: Kinjal Nixon Admit Date: 12/14/2021 01:34:00 PM Patient Name: Shelli Harden Visit Number: [id number] Discharge Date: 12/17/2021 06:30:00 PM ATTENTION: The Clinical Documentation Specialists (CDI) and [facility] Coding Staff appreciate your assistance in clarifying documentation. Please respond to the clarification below the line at the bottom and electronically sign. The CDI & [facility] Coding staff will review the response and follow-up if needed. Please note: Queries are made part of the Legal Health Record. If you have any questions, please contact the author of this message via ITS. Dr. Flynn Siegel The patients principal diagnosis the diagnosis that was chiefly responsible for the admission - has not been clearly identified and clarification is requested. The patient presented with the following nausea, vomiting, diarrhea, fever, leukocytosis. Dx with possible SBO with ileus. Surgical consult mentions gastroenteritis with N/V/D which resolved without antibiotics, could be viral. Please clarify the diagnosis that was chiefly responsible for admission. History/Risk factors: Lab findings: leukocytosis WBC - 12.5 Radiology findings: dilated loops of jejunum with mild wall thickening, possible obstruction versus ileus Vital Signs: Temperature: 97.9 went up to 100.2 on day of admit Pulse: 126 Respirations: 22 BP: 123/75 O2 99 on room air Treatment: NG tube, x-ray of abdomen In your professional opinion, can you please clarify which diagnosis, after study, was the reason chiefly responsible for the admission? [x ] SBO [ ] Ileus [ ] Gastroenteritis [ ] Viral Gastroenteritis [ ] Other, please specify [ ] Unable to determine MTDD
== END 2021-12-17 18:30 | disposition home or self-care (01) | DRG 390 ==
LOC: EC 09:54 → 6NMEDSUR 21:34 → OBSVTOIN 12-14 13:34
PROVIDERS: ADMIT Internal Medicine; ATTEND Internal Medicine
PROC: 0D9670Z Drainage of Stomach with Drainage Device, Via Natural or Artificial Opening (ICD-10-PCS; principal; 2021-12-13)
DX: K56.609 Unspecified intestinal obstruction, unspecified as to partial versus complete obstruction (principal); K52.9 Noninfective gastroenteritis and colitis, unspecified; K56.7 Ileus, unspecified; E11.65 Type 2 diabetes mellitus with hyperglycemia; E78.5 Hyperlipidemia, unspecified; E86.0 Dehydration; E87.6 Hypokalemia; E83.51 Hypocalcemia; F41.9 Anxiety disorder, unspecified; G40.909 Epilepsy, unspecified, not intractable, without status epilepticus; G89.4 Chronic pain syndrome; Z20.822 Contact with and (suspected) exposure to COVID-19; I11.9 Hypertensive heart disease without heart failure; F32.A Depression, unspecified; Z28.310 Unvaccinated for COVID-19; L57.0 Actinic keratosis; R00.1 Bradycardia, unspecified; K59.00 Constipation, unspecified; R00.0 Tachycardia, unspecified; K21.9 Gastro-esophageal reflux disease without esophagitis; M19.90 Unspecified osteoarthritis, unspecified site; Z96.653 Presence of artificial knee joint, bilateral; H81.09 Meniere's disease, unspecified ear; R15.9 Full incontinence of feces; R32 Unspecified urinary incontinence; G47.00 Insomnia, unspecified; M54.9 Dorsalgia, unspecified; Z79.82 Long term (current) use of aspirin; Z79.84 Long term (current) use of oral hypoglycemic drugs; Z79.899 Other long term (current) drug therapy; Z85.038 Personal history of other malignant neoplasm of large intestine; Z85.3 Personal history of malignant neoplasm of breast; Z85.42 Personal history of malignant neoplasm of other parts of uterus; Z85.43 Personal history of malignant neoplasm of ovary; Z86.73 Personal history of transient ischemic attack (TIA), and cerebral infarction without residual deficits; Z90.13 Acquired absence of bilateral breasts and nipples; Z90.49 Acquired absence of other specified parts of digestive tract; Z90.710 Acquired absence of both cervix and uterus; Z88.8 Allergy status to other drugs, medicaments and biological substances; Z91.018 Allergy to other foods; Z98.890 Other specified postprocedural states; Z87.828 Personal history of other (healed) physical injury and trauma; Z86.19 Personal history of other infectious and parasitic diseases; Z87.01 Personal history of pneumonia (recurrent); Z86.79 Personal history of other diseases of the circulatory system; Z90.89 Acquired absence of other organs; Z92.21 Personal history of antineoplastic chemotherapy; Z80.9 Family history of malignant neoplasm, unspecified
CPT/HCPCS: 36415; 71046; 74022; 74177; 80048; 80053; 80143; 80177; 81001; 82150; 82306; 82330; 83036; 83605; 83690; 84145; 84484; 85025; 87040; 87636; 93005; 96372; 96374; 96375; 99285

== ENCOUNTER → 2021-12-26 | Outpatient (CLI) | payer MEDICARE, BC ==
[2021-12-26 10:48] LABS: Basophils # (A) 0.03 X 10*3/uL (0.00-0.10); Basophils % (A) 0.4 %; Eosinophils # (A) 0.26 X 10*3/uL (0.04-0.35); Eosinophils % (A) 3.8 %; HCT 39.4 % (37.2-46.3); HGB 12.2 g/dL (12.0-15.0); Immature Grans, Automated 0.4 %; Lymphocytes # (A) 2.47 X 10*3/uL (0.90-5.00); Lymphocytes % (A) 36.4 %; MCH 27.6 pg (27.0-32.0); MCV 89.1 fL (80.0-97.0); Mean Platelet Volume 9.4 fL (9.5-12.2); Monocytes # (A) 0.52 X 10*3/uL (0.20-1.00); Monocytes % (A) 7.7 %; NRBC Per 100 WBC 0 /100 WBCS (0.0-0.0); Neutrophils # (A) 3.48 X 10*3/uL (1.80-7.70); Neutrophils % (A) 51.3 %; Platelet Count 436 X 10*3/uL (140-440); RBC 4.42 X 10*6/uL (4.10-5.20); RDW 13.9 % (11.5-14.5); WBC 6.79 X 10*3/uL (4.50-10.00)
[2021-12-26 10:56] LABS: ALT 12 U/L (8-44); AST 19 U/L (13-35); African American GFR (CKD) 108.5 (60.0-200.0); Albumin 4.3 g/dL (3.8-4.9); Albumin/Globulin Ratio 1.43 (1.60-3.17); Alkaline Phosphatase 148 U/L (41-126); BUN/Creat Ratio 24.17 Ratio (12.00-20.00); Blood Urea Nitrogen 14.5 mg/dL (9.0-27.0); C Reactive Protein <0.30 mg/dL (0.00-0.80); Calcium 9.2 mg/dL (8.7-10.3); Carbon Dioxide 25.4 mmol/L (20.0-27.5); Chloride 101 mmol/L (96-109); Creatine Kinase 23 U/L (26-186); Glucose 168 mg/dL (70-110); Non-African American GFR(CKD) 93.7 (60.0-200.0); Potassium 4.2 mmol/L (3.5-5.5); Sodium 140 mmol/L (135-145); Total Protein 7.3 g/dL (6.2-8.2)
[2021-12-26 11:07] LABS: Erythrocyte Sedimentation Rate 21 mm/Hr (0-30)
== END | disposition home or self-care (01) ==
LOC: LABWHC1 06:54
PROVIDERS: ATTEND Internal Medicine
DX: I10 Essential (primary) hypertension (principal); E11.65 Type 2 diabetes mellitus with hyperglycemia; D64.9 Anemia, unspecified; E78.5 Hyperlipidemia, unspecified
CPT/HCPCS: 36415; 80053; 82550; 83036; 84443; 85025; 85652; 86140

== ENCOUNTER 2022-01-22 07:04 | Day surgery (SDC) | payer MEDICARE, BC ==
[2022-01-18 09:45] VITALS: BMI 32.3
[~2022-01-22 07:04] MED LIST changes: -ACETAMINOPHEN TAB 500 MG TAB PO PRN; -DEXAMETHASONE SOD PHOSPHATE 4 MG/ML 1 ML VIAL IV ONE; -GABAPENTIN 300 MG CAP PO PRN; +LACTATED RINGERS 1,000 ML IV SCH; -MELOXICAM 7.5 MG TAB PO PRN; -MIDAZOLAM 2 MG/2 ML VIAL IV PRN; -ONDANSETRON 4 MG/2 ML VIAL IVP ONE; -ONDANSETRON 4 MG/2 ML VIAL IVP PRN; -TRANEXAMIC ACID 1,000 MG in SODIUM CHLORIDE 0.9% 100 ML IVPB PRN
[2022-01-22] MEDS ORDERED: ONDANSETRON 4 MG/2 ML VIAL ONE (07:25)
[2022-01-22 07:37] VITALS: TEMP 97.7
[2022-01-22] MEDS ORDERED: ONDANSETRON 4 MG/2 ML VIAL IVP ONE (07:50)
[2022-01-22 07:54] LABS: Glucose,Whole Blood 257 mg/dL (75-99)
[2022-01-22] MEDS ORDERED: LIDOCAINE 2% INJ 20 MG/ML (2 ML VIAL) ONE (08:07)
[2022-01-22] MEDS ORDERED: PROPOFOL 10 MG/ML 20 ML VIAL IV ONE (08:07)
[2022-01-22 08:35] VITALS: RESP 14
--- NOTE | 2022-01-22 08:35 | P.PCN ---
Date of Procedure: 01/22/22 Procedure(s) Performed: PREOPERATIVE DIAGNOSIS: GERD, colon cancer history, change in bowel habits POSTOPERATIVE DIAGNOSIS: Mild gastritis, small descending colon polyp, previous sigmoid resection PROCEDURE: 1. EGD with biopsy 2. Colonoscopy with cold biopsy ANESTHESIA: [facility] SURGEON: Otilio Levi M.D. SPECIMENS: Antrum, polyp ENDOSCOPIC PROCEDURE: The patient was on the endoscopy table in the left decubitus position. The Olympus gastroscope was inserted into the oropharynx and passed under direct visualization to the region of the third portion of the duodenum. From that point the scope was slowly withdrawn inspecting all surfaces carefully. There were no neoplastic inflammatory or polypoid lesions throughout the duodenum. The pylorus was widely patent. The stomach was carefully inspected. There was mild gastritis present. A biopsy of the antrum took place to rule out H. pylori. Retroflexion revealed a normal hiatus. The esophagus was then carefully examined. There were no neoplastic inflammatory or polypoid lesions throughout the visualized esophagus. The patient was kept on the endoscopy table in the left decubitus position. The Olympus colonoscope was inserted into the anus and passed under direct visualization to the base of the cecum. The appendiceal orifice was visualized. From that point the scope was slowly withdrawn inspecting all surfaces carefully. There were no neoplastic inflammatory or polypoid lesions throughout the cecum, ascending, and transverse colon. In the descending colon a small polyp was seen and removed using the cold biopsy forceps. There was a previous colorectal anastomosis. This was widely patent. The rectum appeared normal. There was no visible diverticulosis. Digital rectal examination was normal. RECOMMENDATIONS: resume diet. Await biopsy results. Repeat colonoscopy 5 years.
[2022-01-22 08:50] VITALS: BP 110/64; PULSE 61
== END 2022-01-22 09:20 | disposition home or self-care (01) ==
LOC: ORWHC2ENDO 07:04
PROVIDERS: ATTEND Surgery
DX: K21.9 Gastro-esophageal reflux disease without esophagitis (principal); K29.50 Unspecified chronic gastritis without bleeding; K63.5 Polyp of colon; Z85.038 Personal history of other malignant neoplasm of large intestine; Z90.49 Acquired absence of other specified parts of digestive tract; Z98.0 Intestinal bypass and anastomosis status; I10 Essential (primary) hypertension; E78.5 Hyperlipidemia, unspecified; E11.9 Type 2 diabetes mellitus without complications; F41.9 Anxiety disorder, unspecified; F32.A Depression, unspecified; G40.909 Epilepsy, unspecified, not intractable, without status epilepticus; Z86.73 Personal history of transient ischemic attack (TIA), and cerebral infarction without residual deficits; Z79.84 Long term (current) use of oral hypoglycemic drugs; Z91.018 Allergy to other foods; Z85.3 Personal history of malignant neoplasm of breast; Z90.89 Acquired absence of other organs; Z90.13 Acquired absence of bilateral breasts and nipples; Z90.710 Acquired absence of both cervix and uterus; Z97.2 Presence of dental prosthetic device (complete) (partial); Z82.49 Family history of ischemic heart disease and other diseases of the circulatory system
CPT/HCPCS: 45380; 43239; J2405; J2704; J2001; 88305

== ENCOUNTER 2022-01-22 19:41 | Emergency (ER) | payer MEDICARE, BC ==
--- NOTE | 2022-01-22 22:36 | ED ---
Lower Extremity Injury HPI - General Chief Complaint: Extremity Injury, Lower Stated Complaint: L knee post-op comp Time Seen by Provider: 01/22/22 22:07 Source: patient, RN notes reviewed, old records reviewed Mode of arrival: wheelchair Limitations: no limitations - History of Present Illness Initial Comments: This is a 67-year-old female to the emergency department with left knee pain. Patient has history of left knee surgery. Patient states she was going for walks or when her something pop or movement and left knee was unable to really ambulate afterwards to the severe pain no other injuries noted no other complaints MD Complaint: knee injury -: hour(s) Injury: Knee: Left Type of Injury: hyperextension, hyperflexion Place: home Severity: moderate Severity scale (1-10): 7 Improves With: nothing Worsens With: weight bearing, movement, palpation Other Symptoms: loss of consciousness Associated Symptoms: swelling, unable to bear weight, able to partially bear weight, ambulatory Treatments Prior to Arrival: other - Related Data Home Medications Medication Instructions Recorded Confirmed levETIRAcetam [Keppra] 1,000 mg PO BID 12/16/13 01/23/22 Atorvastatin [Lipitor] 20 mg PO HS 04/21/14 01/23/22 Enalapril [Vasotec] 20 mg PO BID 06/07/21 01/23/22 Metoprolol Tartrate [Lopressor] 50 mg PO BID 06/07/21 01/23/22 amLODIPine [Norvasc] 10 mg PO HS 06/07/21 01/23/22 hydrALAZINE HCL [Apresoline] 100 mg PO TID 06/07/21 01/23/22 cloNIDine HCL [Catapres] 0.2 mg PO BID 10/08/21 01/23/22 carBAMazepine [carBAMazepine ER] 600 mg PO BID 11/13/21 01/23/22 Aspirin [Adult Low Dose Aspirin EC] 81 mg PO DAILY 12/13/21 01/23/22 PARoxetine [Paxil] 10 mg PO DAILY 01/18/22 01/23/22 hydroCHLOROthiazide 25 mg PO DAILY 01/18/22 01/23/22 Previous Rx's Medication Instructions Recorded glipiZIDE [Glucotrol] 5 mg PO AC-BID tab 12/17/21 Aspirin [Adult Low Dose Aspirin EC] 81 mg PO BID #60 tab 01/28/22 Docusate [Colace] 100 mg PO BID #60 capsule 01/28/22 HYDROcodone/APAP 10-325MG [[place] 1 tab PO Q4HR PRN #42 tab 01/28/22 10-325] cefTRIAXone [Rocephin] 2 gm IVPB Q24H #42 each 01/29/22 Allergies Allergy/AdvReac Type Severity Reaction Status Date / Time chlorhexidine Allergy Itching Verified 01/24/22 13:13 Mushroom Allergy Itching Verified 01/24/22 13:13 Review of Systems ROS Statement: Those systems with pertinent positive or pertinent negative responses have been documented in the HPI. ROS Other: All systems not noted in ROS Statement are negative. Past Medical History Past Medical History: Cancer, CVA/TIA, Diabetes Mellitus, GERD/Reflux, Hyperlipidemia, Hypertension, Osteoarthritis (OA), Pneumonia, Seizure Disorder Additional Past Medical History / Comment(s): breast/colon/ovarian,uterine CA, no bp in rt arm. told she had a stroke 03/2014 "blood clot in back of head". hx of head injury 3rd grade, pt states she has "slow thinking process"and seizures started after injury. -last seizure POSSIBLE FEBRUARY 2021 , hx back pain, brain aneurysm 2007, menieres disease History of Any Multi-Drug Resistant Organisms: None Reported Past Surgical History: Adenoidectomy, Appendectomy, Bladder Surgery, Bowel Resection, Breast Surgery, Section, Cholecystectomy, Hernia Repair, Hysterectomy, Joint Replacement, Tonsillectomy Additional Past Surgical History / Comment(s): manpreet. mastectomy , manpreet BREAST BX, MANPREET CATARACT SX, BLADDER SUSPENSION, bowel resection x2 d/t ca, left total knee repl. Past Anesthesia/Blood Transfusion Reactions: Postoperative Nausea & Vomiting ( PONV) Past Psychological History: Anxiety, Depression Smoking Status: Never smoker Past Alcohol Use History: None Reported Past Drug Use History: None Reported - Past Family History Mother Family Medical History: Cancer Father Family Medical History: Cancer General Exam Limitations: no limitations General appearance: alert, in no apparent distress Head exam: Present: atraumatic, normocephalic, normal inspection Eye exam: Present: normal appearance, PERRL, EOMI. Absent: scleral icterus, conjunctival injection, periorbital swelling ENT exam: Present: normal exam, mucous membranes moist Neck exam: Present: normal inspection. Absent: tenderness, meningismus, lymphadenopathy Respiratory exam: Present: normal lung sounds bilaterally. Absent: respiratory distress, wheezes, rales, rhonchi, stridor Cardiovascular Exam: Present: regular rate, normal rhythm, normal heart sounds. Absent: systolic murmur, diastolic murmur, rubs, gallop, clicks GI/Abdominal exam: Present: soft, normal bowel sounds. Absent: distended, tenderness, guarding, rebound, rigid Extremities exam: Present: tenderness, normal capillary refill, other (Left knee tenderness and pain). Absent: full ROM, pedal edema, joint swelling, calf tenderness Back exam: Present: normal inspection Neurological exam: Present: alert, oriented X3, CN II-XII intact Psychiatric exam: Present: normal affect, normal mood Skin exam: Present: warm, dry, intact, normal color. Absent: rash Course Vital Signs 01/22/22 01/23/22 19:43 00:12 Temperature 99.2 F 100 F H Pulse Rate 102 H 89 Respiratory 20 18 Rate Blood Pressure 196/103 184/75 O2 Sat by Pulse 98 97 Oximetry - Reevaluation(s) Reevaluation #1: 01/22/22 medical record is reviewed Reevaluation #2: 01/22/22 Patient's pain is improved now she is able to ambulate Reevaluation #3: 01/22/22 Patient informed of results and questions answered Medical Decision Making - Medical Decision Making 67 female to the emergency department for evaluation of severe knee pain. Postoperative pain no acute findings here in the ER pain is controlled patient is able to ambulate can be discharged - Radiology Data Radiology results: report reviewed (XR of left knee is negative for acute new change), image reviewed Disposition Clinical Impression: Left knee pain, Left knee sprain, Postoperative pain Disposition: HOME SELF-CARE Condition: Good Instructions (If sedation given, give patient instructions): Knee Pain (ED) Is patient prescribed a controlled substance at d/c from ED?: No Referrals: Flynn Siegel MD [Primary Care Provider] - 1-2 days
[2022-01-22] MEDS ORDERED: ACETAMINOPHEN TAB 500 MG TAB PO STA (23:05)
[2022-01-22] MEDS ORDERED: KETOROLAC 15 MG/ML 1 ML VIAL IVP STA (23:05)
[2022-01-22] MEDS ORDERED: HYDROmorphone 1 MG/ML 1 ML SYRINGE IVP STA (23:05)
--- NOTE | 2022-01-22 23:45 | XR ---
EXAMINATION TYPE: XR knee complete LT DATE OF EXAM: 01/22/2022 COMPARISON: 12/02/2021 HISTORY: Knee pain TECHNIQUE: 3 view FINDINGS: There is a left knee prosthesis. Components appear in good position. No fracture seen. No d efinite joint effusion IMPRESSION: No acute abnormality of the left knee. There is apparent clearing of a small joint effusi on compared to old exam.
[2022-01-22] MEDS ORDERED: ACET/COD 300 MG/30 MG STARTER PACK 6 TAB BTL PO STA (23:49)
[2022-01-23 00:14] VITALS: BP 184/75; PULSE 89; RESP 18; TEMP 100
== END 2022-01-23 00:17 | disposition home or self-care (01) ==
LOC: EC 19:41
DX: S83.92XA Sprain of unspecified site of left knee, initial encounter (principal); E11.9 Type 2 diabetes mellitus without complications; Z86.73 Personal history of transient ischemic attack (TIA), and cerebral infarction without residual deficits; K21.9 Gastro-esophageal reflux disease without esophagitis; Z79.83 Long term (current) use of bisphosphonates; I10 Essential (primary) hypertension; E78.5 Hyperlipidemia, unspecified; Z88.2 Allergy status to sulfonamides; Z91.018 Allergy to other foods; X58.XXXA Exposure to other specified factors, initial encounter

== ENCOUNTER 2022-01-23 14:27 | Inpatient (IN) | payer MEDICARE, BC ==
[2022-01-23] MEDS ORDERED: VANCOMYCIN IV PER PHARMACY 1 EACH MISC MISCELLANE PRN (15:15)
[2022-01-23] MEDS ORDERED: VANCOMYCIN 1,500 MG in SODIUM CHLORIDE 0.9% 250 ML IVPB STA (15:18)
[2022-01-23] MEDS ORDERED: NALOXONE 0.4 MG/ML 1 ML VIAL IV PRN (17:09)
[2022-01-23] MEDS ORDERED: ACETAMINOPHEN TAB 325 MG TAB PO PRN (17:09)
[2022-01-23] MEDS ORDERED: ONDANSETRON 4 MG/2 ML VIAL IVP PRN (17:09)
[2022-01-23] MEDS ORDERED: MORPHINE SULFATE 4 MG/ML SYRINGE IV STA (17:11)
--- NOTE | 2022-01-23 17:17 | ED ---
General Adult HPI - General Chief complaint: Extremity Injury, Lower Stated complaint: Sent By Dr Diaz/Aleja knee Time Seen by Provider: 01/23/22 15:14 Source: patient Mode of arrival: ambulatory Limitations: no limitations - History of Present Illness Initial comments: Dictation was produced using [employer] dictation software. please excuse any grammatical, word or spelling errors. Chief Complaint: 67-year-old female told to come to the emergency department for direct admission for knee infection History of Present Illness: 67-year-old female with a last several days she's been having worsening knee pain, left knee warmth and constitutional symptoms she was seen in the emergency department last night and discharged for knee strain. Patient went to her orthopedic surgeon today and had a knee aspiration done to the left knee. It was suspicious for an infection. She was told to come to the ER to be admitted to the hospital for IV antibiotics and perhaps surgical intervention. Patient states she's been having constitutional symptoms. She states the pain is severe. The ROS documented in this emergency department record has been reviewed and confirmed by me. Those systems with pertinent positive or negative responses have been documented in the HPI. All other systems are other negative and/or noncontributory. PHYSICAL EXAM: General Impression: Alert and oriented x3, not in acute distress HEENT: Normocephalic atraumatic, extra-ocular movements intact, pupils equal and reactive to light bilaterally, mucous membranes moist. Cardiovascular: Heart regular rate and rhythm Chest: Able to complete full sentences, no retractions, no tachypnea Abdomen: abdomen soft, non-tender, non-distended, no organomegaly Musculoskeletal: Pulses present and equal in all extremities, no peripheral edema Left knee: Warm to touch, palpatory tenderness, there is pain with manipulation of the knee Motor: no focal deficits noted Neurological: CN II-XII grossly intact, no focal motor or sensory deficits noted Skin: Intact with no visualized rashes Psych: Normal affect and mood ED course: 67-year-old female presents emergency department directed from orthopedic office for concerns of knee infection. She does have history of pulmonary replacement to that knee. Signs upon arrival are within acceptable limits. Spoke with Siobhan Carl who evaluated the patient along with Dr. Diaz. There is concerns for septic arthritis. There is fine so do a washout tomorrow. Patient's serum vancomycin ordered by orthopedic surgery. Patient will be admitted. - Related Data Home Medications Medication Instructions Recorded Confirmed levETIRAcetam [Keppra] 1,000 mg PO BID 12/16/13 01/22/22 Atorvastatin [Lipitor] 20 mg PO HS 04/21/14 01/22/22 Enalapril [Vasotec] 20 mg PO BID 06/07/21 01/22/22 Metoprolol Tartrate [Lopressor] 50 mg PO BID 06/07/21 01/22/22 amLODIPine [Norvasc] 10 mg PO HS 06/07/21 01/22/22 hydrALAZINE HCL [Apresoline] 100 mg PO TID 06/07/21 01/22/22 cloNIDine HCL [Catapres] 0.2 mg PO BID 10/08/21 01/22/22 carBAMazepine [carBAMazepine ER] 600 mg PO BID 11/13/21 01/22/22 Aspirin [Adult Low Dose Aspirin EC] 81 mg PO DAILY 12/13/21 01/22/22 PARoxetine [Paxil] 10 mg PO DAILY 01/18/22 01/22/22 hydroCHLOROthiazide 25 mg PO DAILY 01/18/22 01/22/22 Previous Rx's Medication Instructions Recorded glipiZIDE [Glucotrol] 5 mg PO AC-BID tab 12/17/21 Allergies Allergy/AdvReac Type Severity Reaction Status Date / Time chlorhexidine Allergy Itching Verified 01/23/22 15:12 Mushroom Allergy Itching Verified 01/23/22 15:12 Review of Systems ROS Statement: Those systems with pertinent positive or pertinent negative responses have been documented in the HPI. ROS Other: All systems not noted in ROS Statement are negative. Past Medical History Past Medical History: Cancer, CVA/TIA, Diabetes Mellitus, GERD/Reflux, Hyperlipidemia, Hypertension, Osteoarthritis (OA), Pneumonia, Seizure Disorder Additional Past Medical History / Comment(s): breast/colon/ovarian,uterine CA, no bp in rt arm. told she had a stroke 03/2014 "blood clot in back of head". hx of head injury 3rd grade, pt states she has "slow thinking process"and seizures started after injury. -last seizure POSSIBLE FEBRUARY 2021 , hx back pain, brain aneurysm 2007, menieres disease History of Any Multi-Drug Resistant Organisms: None Reported Past Surgical History: Adenoidectomy, Appendectomy, Bladder Surgery, Bowel Resection, Breast Surgery, Section, Cholecystectomy, Hernia Repair, Hysterectomy, Joint Replacement, Tonsillectomy Additional Past Surgical History / Comment(s): manpreet. mastectomy , manpreet BREAST BX, MANPREET CATARACT SX, BLADDER SUSPENSION, bowel resection x2 d/t ca, left total knee repl. Past Anesthesia/Blood Transfusion Reactions: Postoperative Nausea & Vomiting (PONV) Past Psychological History: Anxiety, Depression Smoking Status: Never smoker Past Alcohol Use History: None Reported Past Drug Use History: None Reported - Past Family History Mother Family Medical History: Cancer Father Family Medical History: Cancer General Exam Limitations: no limitations Course Vital Signs 01/23/22 15:09 Temperature 98.8 F Pulse Rate 93 Respiratory 16 Rate Blood Pressure 133/70 O2 Sat by Pulse 97 Oximetry Disposition Clinical Impression: Septic arthritis Disposition: ADMITTED IP TO THIS HOSP Condition: Serious Referrals: Flynn Siegel MD [Primary Care Provider] - 1-2 days Decision Time: 17:17
[2022-01-23] MEDS: SODIUM CHLORIDE 0.9% 1,000 ML IV SCH (17:54)
[2022-01-23 20:14] LABS: Glucose,Whole Blood 187 mg/dL (70-110)
[2022-01-23] MEDS: ATORVASTATIN 20 MG TAB PO SCH (20:15)
[2022-01-23] MEDS: glipiZIDE 5 MG TAB PO SCH (20:15)
[2022-01-23] MEDS: amLODIPine 10 MG TAB PO SCH (20:15)
[2022-01-23] MEDS: METOPROLOL TARTRATE 50 MG TAB PO SCH (20:15)
[2022-01-23] MEDS: cloNIDine HCL 0.2 MG TAB PO SCH (20:15)
[2022-01-23] MEDS: levETIRAcetam 500 MG TAB PO SCH (20:15)
[2022-01-23] MEDS: carBAMazepine 300 MG CPMP.12HR PO SCH (20:15)
[2022-01-23] MEDS: lisinopriL 20 MG TAB PO SCH (20:16)
[2022-01-23] MEDS: hydrALAZINE HCL 50 MG TAB PO SCH (21:12)
[2022-01-23] MEDS: MORPHINE SULFATE 4 MG/ML SYRINGE IVP PRN (21:45)
[2022-01-24] MEDS: MORPHINE SULFATE 4 MG/ML SYRINGE IVP PRN ×2 (02:28→08:10)
[2022-01-24 06:45] LABS: Glucose,Whole Blood 145 mg/dL (70-110)
[2022-01-24 07:42] LABS: Appearance,Urine Cloudy (Clear); Bacteria,Urine Occasional /hpf; Bilirubin,Urine Negative (Negative); Blood,Urine Negative (Negative); Color,Urine Yellow; Glucose,Urine (UA) 3+ (Negative); Ketones,Urine Negative (Negative); Leukocyte Esterase,Urine Negative (Negative); Mucus,Urine Rare /hpf; Nitrite,Urine Negative (Negative); Protein,Urine Trace (Negative); RBC,Urine 1 /hpf (0-5); Specific Gravity,Urine 1.022 (1.001-1.035); Squamous Epithelial Cell,Urine 1 /hpf (0-4); Urobilinogen,Urine <2.0 mg/dL (<2.0); WBC,Urine 5 /hpf (0-5)
[2022-01-24] MEDS: VANCOMYCIN 1,250 MG in SODIUM CHLORIDE 0.9% 250 ML IVPB SCH ×2 (07:43→19:58)
[2022-01-24 11:24] LABS: Glucose,Whole Blood 142 mg/dL (70-110)
[2022-01-24] MEDS: carBAMazepine 300 MG CPMP.12HR PO SCH ×2 (12:08→19:58)
[2022-01-24] MEDS: PARoxetine 10 MG TAB PO SCH (12:10)
[2022-01-24] MEDS: METOPROLOL TARTRATE 50 MG TAB PO SCH ×2 (12:11→19:59)
[2022-01-24] MEDS: hydrALAZINE HCL 50 MG TAB PO SCH ×3 (12:12→22:26)
[2022-01-24] MEDS: levETIRAcetam 500 MG TAB PO SCH ×2 (12:13→19:59)
[2022-01-24] MEDS: cloNIDine HCL 0.2 MG TAB PO SCH ×2 (12:14→19:59)
[2022-01-24] MEDS: glipiZIDE 5 MG TAB PO SCH ×2 (12:15→18:48)
[2022-01-24] MEDS: lisinopriL 20 MG TAB PO SCH ×2 (12:16→19:59)
[2022-01-24] MEDS: hydroCHLOROthiazide 25 MG TAB PO SCH (12:16)
--- NOTE | 2022-01-24 13:10 | P.CONS ---
History of Present Illness - Reason for Consult Consult date: 01/24/22 Medical management - Chief Complaint Pain in the left knee and swelling, unable to bend it or walk on - History of Present Illness Dictation by Dr. andrews Attending physician Dr. Diaz Consulting physician Dr. Wood Reason for the consult medical management. Chief complaint: Unable to walk on her left knee with severe pain 10 over 10 started 2-3 days ago without any apparent reason History of present illness Patient noticed that within the last 2 days severe restriction of her left total knee arthroplasty with the swelling of the knee unable to walk on it Patient seen in orthopedic associated by Dr. Diaz who did aspiration of the knee and subsequently he felt that it could be septic arthritis of the left knee, patient had left total knee arthroplasty and she was doing well with no problem until recently. Dr. Diaz did send her to the ER where she was admitted under his care with the possibility for incision and drainage and of I's with possible bleeding as well. Past medical history patient had left total knee arthroplasty and she developed the pain was severe last night subsequently seen by Dr. Diaz admitted to the hospital for for further treatment and antibiotic. Past medical history and problem patient has history of bilateral breast removal with the presence of cancer. She had also history of left total knee arthroplasty She has underwent gastroscopy by Dr. Ramos and with the underlying history of GERD disease. With the presence of mild gastritis and he did a biopsy She underwent colonoscopy and cold biopsy by Dr. Levi date of 01/22/2022. She had history of physical therapy on the knee. Patient with history of diabetes mellitus type 2 on glipizide and metformin. History of depression and anxiety was major depressive disorder. She have history of advanced osteoarthritis. She has vitamin D deficiency. She had the inner eye upper eyelid xanthelasma the position. She had history of seizure disorder on Keppra as well. History of insomnia. History of hypertension with hypertensive heart disease. History of pain associated with left knee surgery. History of chronic diarrhea and underwent colonoscopy and EGD by Dr. Levi. And she is on Keppra for seizure disorder was treated by Dr. sekou mejia. History of nausea and vomiting and she was treated with Zofran. History of hyperlipidemia on atorvastatin. History of Mnire's disease bilateral. Diabetes mellitus type 2 on oral hypoglycemic agent. History of bladder suspension and a bowel resection and history of right breast mastectomy followed by the left breast mastectomy. History of chronic anemia No alcohol use and no drug history Family history of cancer father and mother No known ALLERGY Vaccination she had no Durda on 12/14/2020 and repeat on 06/22/2021. To be 2 doses only Review of system: Neuropsychiatry: Stable on the current medication Cardiovascular hypertension which is controlled Pulmonary no symptoms no cough or expectoration GI no symptoms and she recent had upper and lower endoscopy by Dr. Levi Musculoskeletal: Left knee swelling and erythematous painful limited movement with the underlying question of septic arthritis and she had aspiration of the k nee by Dr. Diaz Endocrine diabetes mellitus controlled The patient. Rest of review of system 14 bullet his no added inflammation On the physical examination: Patient seen today examined [id number] her vital sign temperature 98.4 F oral pulse rate 66 beats a minute regular sinus and respiratory rate 16 and blood pressure 139/59 her mean arterial pressure is 85 and her oxygenation 97% on room air. Her EKG was sinus rhythm with no acute ST segment elevation or depression with the no acute abnormalities. EKG on the chart. Head was normocephalic and atraumatic pupil is equal reactive conjunctiva was pink sclera was nonicteric Hearing is normal. Oropharynx: Mouth she has only 2 teeth and she eat with her gum. Neck was supple no JVD and without thyromegaly no lymphadenopathy trachea mid line Chest was clear to auscultation and percussion has symmetrical and mild kyphosis Absent breasts bilaterally. Secondary to surgical removal Abdomen soft positive bowel sounds no tenderness in the 4 quadrants. Extremities left total knee arthroplasty scar with the underlying swallowing edematous severely tender on light touch and there is ballottement and appeared to be local infection. Neurologically: Stable general condition no seizure disorder noted and no neurological finding no lateralization and no CVA. The Assessment: #1 multiple medical problem with the underlying diabetes mellitus2 oral hypoglycemic agent #2 hypertension with hypertensive heart disease was very resistant in the past #3 septic arthritis of the left knee with the salvage of the left knee prosthesis. #4 seizure disorder on Keppra. #5 history of hyperlipidemia #6 bilateral modified radical mastectomy for cancer of the breast. #7 depression with major depressive disorder. #8 chronic pain. Recommendations and plan: #1 patient cleared for surgical intervention of her left knee with the underlying septic arthritis #2 patient with history of hypertension currently controlled with blood pressure 139/59. #3 no history of chest pain or chest pressure. #4 history of seizure disorder stable no activity. #5 I did review the medication ordered and resumed. #6 patient need a CBC with differential and chemistry profile ordered. #[address] Diaz for letting me participate in the care of your patient #8 will be on consult for medical management we'll follow with you thank you #We'll place insulin to scale. Past Medical History Past Medical History: Cancer, CVA/TIA, Diabetes Mellitus, GERD/Reflux, Hyperlipidemia, Hypertension, Osteoarthritis (OA), Pneumonia, Seizure Disorder Additional Past Medical History / Comment(s): breast/colon/ovarian,uterine CA, no bp in rt arm. told she had a stroke 03/2014 "blood clot in back of head". hx of head injury 3rd grade, pt states she has "slow thinking process"and seizures started after injury. -last seizure POSSIBLE FEBRUARY 2021 , hx back pain, brain aneurysm 2007, menieres disease History of Any Multi-Drug Resistant Organisms: None Reported Past Surgical History: Adenoidectomy, Appendectomy, Bladder Surgery, Bowel Resection, Breast Surgery, Section, Cholecystectomy, Hernia Repair, Hysterectomy, Joint Replacement, Tonsillectomy Additional Past Surgical History / Comment(s): manpreet. mastectomy , manpreet BREAST BX, MANPREET CATARACT SX, BLADDER SUSPENSION, bowel resection x2 d/t ca, left total knee repl. Past Anesthesia/Blood Transfusion Reactions: Postoperative Nausea & Vomiting (PONV) Past Psychological History: Anxiety, Depression Additional Psychological History / Comment(s): . Smoking Status: Never smoker Past Alcohol Use History: None Reported Past Drug Use History: None Reported - Past Family History Mother Family Medical History: Cancer Father Family Medical History: Cancer Medications and Allergies Home Medications Medication Instructions Recorded Confirmed Type levETIRAcetam [Keppra] 1,000 mg PO BID 12/16/13 01/23/22 History Atorvastatin [Lipitor] 20 mg PO HS 04/21/14 01/23/22 History Enalapril [Vasotec] 20 mg PO BID 06/07/21 01/23/22 History Metoprolol Tartrate [Lopressor] 50 mg PO BID 06/07/21 01/23/22 History amLODIPine [Norvasc] 10 mg PO HS 06/07/21 01/23/22 History hydrALAZINE HCL [Apresoline] 100 mg PO TID 06/07/21 01/23/22 History cloNIDine HCL [Catapres] 0.2 mg PO BID 10/08/21 01/23/22 History carBAMazepine [carBAMazepine ER] 600 mg PO BID 11/13/21 01/23/22 History Aspirin [Adult Low Dose Aspirin EC] 81 mg PO DAILY 12/13/21 01/23/22 History glipiZIDE [Glucotrol] 5 mg PO AC-BID tab 12/17/21 01/23/22 Rx PARoxetine [Paxil] 10 mg PO DAILY 01/18/22 01/23/22 History hydroCHLOROthiazide 25 mg PO DAILY 01/18/22 01/23/22 History Allergies Allergy/AdvReac Type Severity Reaction Status Date / Time chlorhexidine Allergy Itching Verified 01/23/22 17:29 Mushroom Allergy Itching Verified 01/23/22 17:29 Physical Exam Vitals: Vital Signs Temp Pulse Pulse Resp BP BP Pulse Ox 01/24/22 07:27 98.4 F 66 16 139/59 97 01/24/22 01:30 98 F 66 16 141/75 95 01/23/22 21:12 151/65 01/23/22 18:59 98.2 F 79 14 195/83 100 01/23/22 18:00 71 18 151/85 96 01/23/22 15:09 98.8 F 93 16 133/70 97 Intake and Output 01/23/22 01/24/22 01/24/22 22:59 06:59 14:59 Output Total 200 Balance -200 Output: Urine 200 Other: Voiding Method Diaper Diaper Incontinent Incontinent # Voids 1 1 Weight 75.296 kg Results Labs: Abnormal Lab Results - Last 24 Hours (Table) 01/23/22 01/23/22 01/23/22 Range/Units 17:35 17:35 17:35 ESR 43 H (0-20) mm/hr POC Glucose (mg/dL) (70-110) mg/dL C-Reactive Protein 19.9 H (<1.0) mg/dL Procalcitonin 0.27 H (0.02-0.09) ng/mL Urine Appearance (Clear) Urine Protein (Negative) Urine Glucose (UA) (Negative) Urine Bacteria (None) /hpf Urine Mucus (None) /hpf 01/23/22 01/24/22 01/24/22 Range/Units 20:12 06:44 07:20 ESR (0-20) mm/hr POC Glucose (mg/dL) 187 H 145 H (70-110) mg/dL C-Reactive Protein (<1.0) mg/dL Procalcitonin (0.02-0.09) ng/mL Urine Appearance Cloudy H (Clear) Urine Protein Trace H (Negative) Urine Glucose (UA) 3+ H (Negative) Urine Bacteria Occasional H (None) /hpf Urine Mucus Rare H (None) /hpf 01/24/22 Range/Units 11:23 ESR (0-20) mm/hr POC Glucose (mg/dL) 142 H (70-110) mg/dL C-Reactive Protein (<1.0) mg/dL Procalcitonin (0.02-0.09) ng/mL Urine Appearance (Clear) Urine Protein (Negative) Urine Glucose (UA) (Negative) Urine Bacteria (None) /hpf Urine Mucus (None) /hpf
[2022-01-24] MEDS ORDERED: LACTATED RINGERS 1,000 ML IV ONE (13:16)
[2022-01-24 13:23] LABS: Glucose,Whole Blood 130 mg/dL (70-110)
[2022-01-24] MEDS ORDERED: ONDANSETRON 4 MG/2 ML VIAL IVP ONE (13:49)
[2022-01-24] MEDS ORDERED: DEXAMETHASONE SOD PHOSPHATE 4 MG/ML 1 ML VIAL IVP ONE (13:49)
[2022-01-24 13:51] LABS: Basophils % (A) 0 %; Eosinophils # (A) 0.3 k/uL (0-0.7); Eosinophils % (A) 4 %; HCT 33.9 % (34.0-46.0); HGB 11.1 gm/dL (11.4-16.0); Lymphocytes # (A) 2.4 k/uL (1.0-4.8); Lymphocytes % (A) 34 %; MCH 28.9 pg (25.0-35.0); MCHC 32.8 g/dL (31.0-37.0); MCV 87.9 fL (80.0-100.0); Mean Platelet Volume 7.1; Monocytes # (A) 0.3 k/uL (0-1.0); Monocytes % (A) 5 %; Neutrophils # (A) 3.9 k/uL (1.3-7.7); Neutrophils % (A) 55 %; Platelet Count 304 k/uL (150-450); RBC 3.85 m/uL (3.80-5.40); RDW 14.4 % (11.5-15.5); WBC 7.1 k/uL (3.8-10.6)
[2022-01-24 14:35] LABS: ALT 75 U/L (4-34); AST 37 U/L (14-36); African American GFR (CKD) >90 (>60 ml/min/1.73 sqM); Albumin 3.3 g/dL (3.5-5.0); Albumin/Globulin Ratio 1.3; Blood Urea Nitrogen 7 mg/dL (7-17); Carbon Dioxide 24 mmol/L (22-30); Globulin 2.5 g/dL; Glucose 130 mg/dL (74-99); Non-African American GFR(CKD) >90 (>60 ml/min/1.73 sqM); Potassium 3.4 mmol/L (3.5-5.1); Total Bilirubin 0.4 mg/dL (0.2-1.3); Total Protein 5.8 g/dL (6.3-8.2)
[2022-01-24] MEDS ORDERED: NEOSTIGMINE 1 MG/ML 10 ML VIAL ONE (14:35)
[2022-01-24] MEDS ORDERED: TRANEXAMIC ACID IN NACL,ISO-OS 1,000 MG/100 ML BAG ONE (14:35)
[2022-01-24] MEDS ORDERED: GLYCOPYRROLATE 0.2 MG/ML 2 ML VIAL ONE (14:35)
[2022-01-24] MEDS ORDERED: MIDAZOLAM 2 MG/2 ML VIAL ONE (14:35)
[2022-01-24] MEDS ORDERED: PROPOFOL 10 MG/ML 20 ML VIAL IV ONE (14:35)
[2022-01-24] MEDS ORDERED: SUCCINYLCHOLINE CHLORIDE 100 MG/5 ML SYR IV ONE (14:35)
[2022-01-24] MEDS ORDERED: LIDOCAINE 2% INJ 20 MG/ML (2 ML VIAL) ONE (14:35)
[2022-01-24] MEDS ORDERED: ROCURONIUM 10 MG/ML (5 ML VIAL) IV ONE (14:35)
[2022-01-24] MEDS ORDERED: HYDROmorphone (PF) 1 MG/ML ONE (14:35)
[2022-01-24] MEDS ORDERED: fentaNYL (PF) 50 MCG/ML 2 ML AMP ONE (14:35)
[2022-01-24 14:38] LABS: Alkaline Phosphatase 126 U/L (38-126); Anion Gap 9 mmol/L; Calcium 8.3 mg/dL (8.4-10.2); Chloride 104 mmol/L (98-107); Sodium 137 mmol/L (137-145)
[2022-01-24] MEDS ORDERED: ceFAZolin 3,000 MG in SODIUM CHLORIDE 0.9% IRRIGATIO 3,000 ML IRRIGATION ONE (14:43)
[2022-01-24 14:45] LABS: Prothrombin Time 10.9 sec (9.0-12.0)
--- NOTE | 2022-01-24 14:49 | P.HPOR ---
History of Present Illness H&P Date: 01/24/22 Chief Complaint: Left knee infection Patient is a 67-year-old female who is s/p left TKA on 10/11/[address] Diaz. She presented to our office yesterday (01/23/22) with increasing knee pain, fever, swelling/redness after having a colonoscopy on 01/22/22. A joint aspir ation was performed in office and she was directed to the emergency department for direct admission for suspected knee infection. She denies numbness or calf pain. She has no other complaints. Review of Systems All systems: negative Constitutional: Denies chills, Denies fever Eyes: denies blurred vision, denies pain Ears, nose, mouth and throat: Denies headache, Denies sore throat Cardiovascular: Denies chest pain, Denies shortness of breath Respiratory: Denies cough Gastrointestinal: Denies abdominal pain, Denies diarrhea, Denies nausea, Denies vomiting Genitourinary: Denies dysuria, Denies hematuria Musculoskeletal: Denies myalgias Integumentary: Denies pruritus, Denies rash Neurological: Denies numbness, Denies weakness Psychiatric: Denies anxiety, Denies depression Endocrine: Denies fatigue, Denies weight change Past Medical History Past Medical History: Cancer, CVA/TIA, Diabetes Mellitus, GERD/Reflux, Hyperlipidemia, Hypertension, Osteoarthritis (OA), Pneumonia, Seizure Disorder Additional Past Medical History / Comment(s): breast/colon/ovarian,uterine CA, no bp in rt arm. told she had a stroke 03/2014 "blood clot in back of head". hx of head injury 3rd grade, pt states she has "slow thinking process"and seizures started after injury. -last seizure POSSIBLE FEBRUARY 2021 , hx back pain, brain aneurysm 2007, menieres disease History of Any Multi-Drug Resistant Organisms: None Reported Past Surgical History: Adenoidectomy, Appendectomy, Bladder Surgery, Bowel Resection, Breast Surgery, Section, Cholecystectomy, Hernia Repair, Hysterectomy, Joint Replacement, Tonsillectomy Additional Past Surgical History / Comment(s): manpreet. mastectomy , manpreet BREAST BX, MANPREET CATARACT SX, BLADDER SUSPENSION, bowel resection x2 d/t ca, left total knee repl. Past Anesthesia/Blood Transfusion Reactions: Postoperative Nausea & Vomiting (PONV) Past Psychological History: Anxiety, Depression Additional Psychological History / Comment(s): . Smoking Status: Never smoker Past Alcohol Use History: None Reported Past Drug Use History: None Reported - Past Family History Mother Family Medical History: Cancer Father Family Medical History: Cancer Medications and Allergies Home Medications Medication Instructions Recorded Confirmed Type levETIRAcetam [Keppra] 1,000 mg PO BID 12/16/13 01/23/22 History Atorvastatin [Lipitor] 20 mg PO HS 04/21/14 01/23/22 History Enalapril [Vasotec] 20 mg PO BID 06/07/21 01/23/22 History Metoprolol Tartrate [Lopressor] 50 mg PO BID 06/07/21 01/23/22 History amLODIPine [Norvasc] 10 mg PO HS 06/07/21 01/23/22 History hydrALAZINE HCL [Apresoline] 100 mg PO TID 06/07/21 01/23/22 History cloNIDine HCL [Catapres] 0.2 mg PO BID 10/08/21 01/23/22 History carBAMazepine [carBAMazepine ER] 600 mg PO BID 11/13/21 01/23/22 History Aspirin [Adult Low Dose Aspirin EC] 81 mg PO DAILY 12/13/21 01/23/22 History glipiZIDE [Glucotrol] 5 mg PO AC-BID tab 12/17/21 01/23/22 Rx PARoxetine [Paxil] 10 mg PO DAILY 01/18/22 01/23/22 History hydroCHLOROthiazide 25 mg PO DAILY 01/18/22 01/23/22 History Allergies Allergy/AdvReac Type Severity Reaction Status Date / Time chlorhexidine Allergy Itching Verified 01/24/22 13:13 Mushroom Allergy Itching Verified 01/24/22 13:13 Physical Examination Inspection of left lower leg shows surgical wound intact. No bleeding or drainage. There is some erythema and effusion. Mildly hot to touch. Mildly tender. She has pain with ROm including flexion to 100 and full extension. the knee is ligamentously stable. No deformity. Calf is SNT. Motor and sensation intact throughout lower extremities. 2+ DP pulses and less than 2 sec cap refill present GEN: NAD, AOx5, MAA Results - Labs Labs: Abnormal Lab Results - Last 24 Hours (Table) 01/23/22 01/23/22 01/23/22 Range/Units 17:35 17:35 17:35 Hgb (11.4-16.0) gm/dL Hct (34.0-46.0) % ESR 43 H (0-20) mm/hr Potassium (3.5-5.1) mmol/L Creatinine (0.52-1.04) mg/dL Glucose (74-99) mg/dL POC Glucose (mg/dL) (70-110) mg/dL Calcium (8.4-10.2) mg/dL AST (14-36) U/L ALT (4-34) U/L C-Reactive Protein 19.9 H (<1.0) mg/dL Total Protein (6.3-8.2) g/dL Albumin (3.5-5.0) g/dL Procalcitonin 0.27 H (0.02-0.09) ng/mL Urine Appearance (Clear) Urine Protein (Negative) Urine Glucose (UA) (Negative) Urine Bacteria (None) /hpf Urine Mucus (None) /hpf 01/23/22 01/24/22 01/24/22 Range/Units 20:12 06:44 07:20 Hgb (11.4-16.0) gm/dL Hct (34.0-46.0) % ESR (0-20) mm/hr Potassium (3.5-5.1) mmol/L Creatinine (0.52-1.04) mg/dL Glucose (74-99) mg/dL POC Glucose (mg/dL) 187 H 145 H (70-110) mg/dL Calcium (8.4-10.2) mg/dL AST (14-36) U/L ALT (4-34) U/L C-Reactive Protein (<1.0) mg/dL Total Protein (6.3-8.2) g/dL Albumin (3.5-5.0) g/dL Procalcitonin (0.02-0.09) ng/mL Urine Appearance Cloudy H (Clear) Urine Protein Trace H (Negative) Urine Glucose (UA) 3+ H (Negative) Urine Bacteria Occasional H (None) /hpf Urine Mucus Rare H (None) /hpf 01/24/22 01/24/22 01/24/22 Range/Units 11:23 13:21 13:32 Hgb 11.1 L (11.4-16.0) gm/dL Hct 33.9 L (34.0-46.0) % ESR (0-20) mm/hr Potassium (3.5-5.1) mmol/L Creatinine (0.52-1.04) mg/dL Glucose (74-99) mg/dL POC Glucose (mg/dL) 142 H 130 H (70-110) mg/dL Calcium (8.4-10.2) mg/dL AST (14-36) U/L ALT (4-34) U/L C-Reactive Protein (<1.0) mg/dL Total Protein (6.3-8.2) g/dL Albumin (3.5-5.0) g/dL Procalcitonin (0.02-0.09) ng/mL Urine Appearance (Clear) Urine Protein (Negative) Urine Glucose (UA) (Negative) Urine Bacteria (None) /hpf Urine Mucus (None) /hpf 01/24/22 Range/Units 13:32 Hgb (11.4-16.0) gm/dL Hct (34.0-46.0) % ESR (0-20) mm/hr Potassium 3.4 L (3.5-5.1) mmol/L Creatinine 0.50 L (0.52-1.04) mg/dL Glucose 130 H (74-99) mg/dL POC Glucose (mg/dL) (70-110) mg/dL Calcium 8.3 L (8.4-10.2) mg/dL AST 37 H (14-36) U/L ALT 75 H (4-34) U/L C-Reactive Protein (<1.0) mg/dL Total Protein 5.8 L (6.3-8.2) g/dL Albumin 3.3 L (3.5-5.0) g/dL Procalcitonin (0.02-0.09) ng/mL Urine Appearance (Clear) Urine Protein (Negative) Urine Glucose (UA) (Negative) Urine Bacteria (None) /hpf Urine Mucus (None) /hpf H & H 01/24/22 Range/Units 13:32 Hgb 11.1 L (11.4-16.0) gm/dL Hct 33.9 L (34.0-46.0) % Result Diagrams: 01/24/22 13:32 01/24/22 13:32 Assessment and Plan (1) Septic arthritis Narrative/Plan: Plan is to proceed with surgical I and D of left knee with exchange of the poly today, 01/24/22. We will consult ID and medicine for antibiotic recommendations and medical management. Will make further recommendations pending clinical course. Current Visit: Yes Status: Acute Code(s): M00.9 - PYOGENIC ARTHRITIS, UNSPECIFIED SNOMED Code(s): 907775795 Time with Patient: Less than 30
[2022-01-24] MEDS ORDERED: bisacodyL 10 MG SUPP RECTAL PRN (14:50)
[2022-01-24] MEDS ORDERED: MAGNESIUM HYDROXIDE 2,400 MG/10 ML CUP PO PRN (14:50)
[2022-01-24] MEDS ORDERED: HYDROmorphone 0.5 MG/0.5 ML SYRINGE IVP PRN ×2 (14:50)
[2022-01-24] MEDS ORDERED: diazePAM 5 MG TAB PO PRN (14:50)
[2022-01-24] MEDS ORDERED: NA PHOS,M-B/NA PHOS,DI-BA 133 ML ENEMA RECTAL PRN (14:50)
[2022-01-24] MEDS ORDERED: HYDROcodone/APAP 7.5-325MG 1 EACH TAB PO PRN (14:53)
[2022-01-24] MEDS ORDERED: TRANEXAMIC ACID IN NACL,ISO-OS 1,000 MG in SALINE 1 100ML.BAG IVPB ONE ×2 (15:06→15:15)
[2022-01-24] MEDS ORDERED: HYDROmorphone 0.5 MG/0.5 ML SYRINGE IVP ONE ×2 (16:32→16:40)
[2022-01-24] MEDS: INSULIN ASPART (NovoLOG) 100 UNIT/ML VIAL SQ SCH ×2 (17:21→23:45)
[2022-01-24] MEDS: HYDROcodone/APAP 7.5-325MG 1 EACH TAB PO PRN ×2 (17:32→23:44)
[2022-01-24] MEDS: ASPIRIN 81 MG PO SCH (19:58)
[2022-01-24] MEDS: ATORVASTATIN 20 MG TAB PO SCH (19:58)
[2022-01-24] MEDS: amLODIPine 10 MG TAB PO SCH (19:58)
[2022-01-24] MEDS: SENNOSIDES-DOCUSATE SODIUM 1 EACH TAB PO SCH (19:59)
[2022-01-24] MEDS: HYDROmorphone 0.5 MG/0.5 ML SYRINGE IVP PRN (20:02)
[2022-01-24 20:03] LABS: Glucose,Whole Blood 163 mg/dL (70-110)
[2022-01-24] MEDS: SODIUM CHLORIDE 0.9% 1,000 ML IV SCH ×2 (21:36→21:38)
--- NOTE | 2022-01-24 21:40 | OP ---
OPERATIVE REPORT DATE OF PROCEDURE: 01/24/2022. SURGEON: Adrián Diaz MD. BELT SEWER: Jeovanny FRAIRE. PREOPERATIVE DIAGNOSIS: Left knee septic arthritis. POSTOPERATIVE DIAGNOSIS: Left knee septic arthritis. PROCEDURE: 1. Left open irrigation debridement. 2. Left knee tibial polyethylene exchange, total knee arthroplasty. ANESTHESIA: General endotracheal. ESTIMATED BLOOD LOSS: Was 20 mL. The tourniquet was 28 minutes at 250 mmHg. COMPLICATIONS: None apparent. DRAINS: None. DISPOSITION: Postanesthesia care unit. INDICATIONS: Shelli is a very pleasant 67-year-old female, well known to me. She underwent a left total knee arthroplasty by myself on October 11, 2021. She has had multiple hospitalizations for abdominal issues since her total knee arthroplasty. She had seemingly been turning the corner. She was a little behind with her rehab with her knee. However, she was increasing her motion and was doing quite well in physical therapy without any issues as of late. She had an elective colonoscopy done on 01/22/2022. The day before, she had physical therapy without any issues at all. Later that night, she woke up from a nap with fairly significant pain in the left knee. She also noted swelling. This was an acute onset of knee pain in her case. She did call our office. I did see her on yesterday on 01/23/2022. She did have a fever in the office of 101.3. The knee was warm. The effusion was mild to moderate. She had a very well-healed incision. I did do a joint aspiration in the office yesterday. I did get approximately 40 mL of bloody fluid, which was suspicious for potential infection. I did send it. Due to her fever, the appearance of the fluid, I did send her to the hospital for admission. We did send the fluid for analysis and culture. The fluid analysis showed no evidence of organisms. However, her sedimentation rate and CRP were both elevated. Her white count was 7.1. The fluid showed increased PMNs and a cell count, which was certainly indicative of infection. Recommendation was for irrigation debridement with polyethylene exchange. I felt that this was reasonable considered this did seem to be a very acute onset seemingly of an infection in the knee. Shelli agreed and wished to proceed. The risks of the procedure were discussed with her in detail. These risks included, but were not limited to risk of infection, continued infection, nerve damage and blood vessel damage, pain, and a small risk of deep vein thrombosis which could lead to fatal pulmonary embolism. Shelli does understand that there is certainly a possibility that this may not irradicate her infection and she may require additional procedures in the future. All of her questions with regards procedure were answered to her satisfaction. Appropriate informed consent was obtained. DESCRIPTION OF THE PROCEDURE: The patient was identified in preoperative holding area. Surgical site was marked by both the patient and myself. She had been on vancomycin since admission after I did the aspiration yesterday. She was then transferred to the operative suite. She was placed supine on the operative table. General anesthetic was then administered and dosed per the anesthesia without apparent complication. The patient's left lower extremity was then prepped and draped in usual sterile fashion. Standard surgical pause undertaken to ensure that we were operating the correct site and that appropriate preoperative antibiotics were given. All staff were in agreement and we proceeded. The leg was exsanguinated with an Esmarch dressing. The tourniquet inflated to 250 mmHg. The previous anterior incision was then opened utilizing a 10 blade scalpel. Dissection carried down sharply to the underlying fascia. The previous Ethibond sutures were identified. These were all removed. A medial parapatellar arthrotomy was then performed. There was a small amount of cloudy bloody fluid. Certainly it was not a copious amount of purulent material. The fluid was very similar to what was aspirated yesterday. We did send two deep cultures from this fluid. I did at this point remove the existing tibial polyethylene. The knee was then thoroughly irrigated and debrided. The debridement was sharp debridement of any devitalized looking synovium. There was very minimal debridement. The synovium all looked relatively healthy. We irrigated with approximately 1.5 L of saline solution with antibiotic added via pulse lavage. I then lavaged the knee with dilute Betadine solution. This was allowed to sit in the knee for several minutes. We did several of these lavages. At the end of the Betadine lavage, we re*irrigated with sterile saline solution with antibiotic added via pulse lavage. I then put a new polyethylene in. This was a Julio persona CD size 10 polyethylene. It was exactly the same size polyethylene that was removed. This was inserted and secured without any complication. I then again further irrigated the knee with sterile saline with antibiotic added via pulse lavage. Then, we then placed a Parisi and Nephew absorbable antibiotic beads deep. These were vancomycin beads. We then proceeded with closure. The extensor mechanism was then reapproximated with #1 PDS suture. It was then further closed with a running Quill suture. The subcutaneous tissues were then further irrigated with sterile saline solution with antibiotic added via pulse lavage. The remaining of vancomycin beads were then placed. The absorbable and vancomycin beads were then placed subcutaneously. The subcutaneous tissue was closed with 3-0 Monocryl interrupted suture. The skin was closed with a running Quill suture. Dermabond was applied to the incision. Sterile compressive dressing was then applied. The tourniquet was deflated prior to closure. All sponge and needle counts were deemed correct prior to closure. The patient tolerated the procedure without apparent complication. She was transferred to recovery room in stable condition. MMHILDA / SHAHID: [id number] /
[2022-01-24 23:42] LABS: Glucose,Whole Blood 254 mg/dL (70-110)
[2022-01-25] MEDS: HYDROmorphone 0.5 MG/0.5 ML SYRINGE IVP PRN ×4 (03:20→23:10)
[2022-01-25] MEDS: SODIUM CHLORIDE 0.9% 1,000 ML IV SCH ×4 (03:22→23:44)
[2022-01-25 06:47] LABS: Glucose,Whole Blood 199 mg/dL (70-110)
[2022-01-25] MEDS: HYDROcodone/APAP 7.5-325MG 1 EACH TAB PO PRN (07:23)
[2022-01-25] MEDS: VANCOMYCIN 1,250 MG in SODIUM CHLORIDE 0.9% 250 ML IVPB SCH ×2 (09:01→20:32)
[2022-01-25] MEDS: INSULIN ASPART (NovoLOG) 100 UNIT/ML VIAL SQ SCH ×4 (09:02→20:15)
[2022-01-25] MEDS: MULTIVITAMINS, THERA 1 EACH TAB PO SCH (09:02)
[2022-01-25] MEDS: ASPIRIN 81 MG PO SCH ×2 (09:03→20:16)
[2022-01-25] MEDS: glipiZIDE 5 MG TAB PO SCH ×2 (09:03→16:56)
[2022-01-25] MEDS: hydrALAZINE HCL 50 MG TAB PO SCH ×3 (09:03→20:15)
[2022-01-25] MEDS: lisinopriL 20 MG TAB PO SCH ×2 (09:03→20:15)
[2022-01-25] MEDS: METOPROLOL TARTRATE 50 MG TAB PO SCH ×2 (09:03→20:15)
[2022-01-25] MEDS: cloNIDine HCL 0.2 MG TAB PO SCH ×2 (09:03→20:15)
[2022-01-25] MEDS: hydroCHLOROthiazide 25 MG TAB PO SCH (09:03)
[2022-01-25] MEDS: levETIRAcetam 500 MG TAB PO SCH ×2 (09:04→20:16)
[2022-01-25] MEDS: PARoxetine 10 MG TAB PO SCH (09:05)
[2022-01-25] MEDS: carBAMazepine 300 MG CPMP.12HR PO SCH ×2 (09:06→20:16)
[2022-01-25] MEDS ORDERED: HYDROcodone/APAP 10-325MG 1 EACH TAB PO PRN (09:17)
--- NOTE | 2022-01-25 09:44 | P.PN ---
Subjective Progress Note Date: 01/25/22 Principal diagnosis: Total knee arthroplasty Patient is seen at bedside this morning. SHe is postop day #1 from I and D with poly exchange of previous left total knee arthroplasty. She has pain at the surgical site as expected but denies any new complaints. SHe denies numbness, tingling or calf pain. Review of systems is negative for fever, chills, chest pain, shortness of breath or other. Cultures are pending. initial Gram stain is negative Objective - Vital Signs Vital signs: Vital Signs Temp 98.2 F 01/25/22 08:18 Pulse 62 01/25/22 08:18 Resp 16 01/25/22 08:18 BP 134/72 01/25/22 08:18 Pulse Ox 97 01/25/22 08:18 FiO2 Intake & Output 01/24/22 01/25/22 01/25/22 18:59 06:59 18:59 Intake Total 701 Output Total 20 600 Balance 681 -600 Intake: IV 701 Output: Urine 600 Estimated Blood Loss 20 Other: Voiding Method Bedpan Bedpan Diaper Diaper Incontinent Incontinent # Voids 2 - Exam Inspection reveals a benign surgical wound. There is no active bleeding or drainage. Neurovascular status is intact throughout the lower extremity with motor and sensation fully intact. Calf is soft and nontender. 2+ dorsalis pedis pulse and less than 2 second cap refill is present. - Constitutional General appearance: Present: no acute distress - Labs CBC & Chem 7: 01/24/22 13:32 01/24/22 13:32 Labs: Abnormal Lab Results - Last 24 Hours (Table) 01/24/22 01/24/22 01/24/22 Range/Units 11:23 13:21 13:32 Hgb 11.1 L (11.4-16.0) gm/dL Hct 33.9 L (34.0-46.0) % Potassium (3.5-5.1) mmol/L Creatinine (0.52-1.04) mg/dL Glucose (74-99) mg/dL POC Glucose (mg/dL) 142 H 130 H (70-110) mg/dL Calcium (8.4-10.2) mg/dL AST (14-36) U/L ALT (4-34) U/L Total Protein (6.3-8.2) g/dL Albumin (3.5-5.0) g/dL 01/24/22 01/24/22 01/24/22 Range/Units 13:32 19:51 23:41 Hgb (11.4-16.0) gm/dL Hct (34.0-46.0) % Potassium 3.4 L (3.5-5.1) mmol/L Creatinine 0.50 L (0.52-1.04) mg/dL Glucose 130 H (74-99) mg/dL POC Glucose (mg/dL) 163 H 254 H (70-110) mg/dL Calcium 8.3 L (8.4-10.2) mg/dL AST 37 H (14-36) U/L ALT 75 H (4-34) U/L Total Protein 5.8 L (6.3-8.2) g/dL Albumin 3.3 L (3.5-5.0) g/dL 01/25/22 Range/Units 06:45 Hgb (11.4-16.0) gm/dL Hct (34.0-46.0) % Potassium (3.5-5.1) mmol/L Creatinine (0.52-1.04) mg/dL Glucose (74-99) mg/dL POC Glucose (mg/dL) 199 H (70-110) mg/dL Calcium (8.4-10.2) mg/dL AST (14-36) U/L ALT (4-34) U/L Total Protein (6.3-8.2) g/dL Albumin (3.5-5.0) g/dL Microbiology - Last 24 Hours (Table) 01/24/22 15:19 Gram Stain - Preliminary Knee - Left Wound Culture - Preliminary 01/24/22 15:18 Gram Stain - Preliminary Knee - Left Wound Culture - Preliminary 01/24/22 15:19 Anaerobic Culture - Preliminary Knee - Left 01/24/22 15:18 Anaerobic Culture - Preliminary Knee - Left 01/23/22 17:42 Blood Culture - Preliminary Blood No Growth after 24 hours 01/23/22 17:41 Blood Culture - Preliminary Blood No Growth after 24 hours Assessment and Plan (1) Septic arthritis Narrative/Plan: She will continue with routine postop orthopedic protocol including pain management, wound care, DVT prophylaxis and medical management. ID also has been consulted. Cultures are pending and initial gram stain is negative. She has a normal WBC today and is afebrile. Will continue to monitor and make further recommendations pending clinical course. Current Visit: Yes Status: Acute Code(s): M00.9 - PYOGENIC ARTHRITIS, UNSPECIFIED SNOMED Code(s): 839158604 Time with Patient: Less than 30
[2022-01-25 10:49] LABS: Basophils # (A) 0.03 X 10*3/uL (0.00-0.10); Basophils % (A) 0.4 %; Eosinophils # (A) 0.21 X 10*3/uL (0.04-0.35); Eosinophils % (A) 2.6 %; HCT 36.8 % (37.2-46.3); HGB 11.8 g/dL (12.0-15.0); Immature Grans, Automated 0.5 %; Lymphocytes # (A) 2.57 X 10*3/uL (0.90-5.00); Lymphocytes % (A) 32.2 %; MCH 28.3 pg (27.0-32.0); MCHC 32.1 g/dL (32.0-37.0); MCV 88.2 fL (80.0-97.0); Mean Platelet Volume 10.1 fL (9.5-12.2); Monocytes # (A) 0.71 X 10*3/uL (0.20-1.00); Monocytes % (A) 8.9 %; NRBC Per 100 WBC 0 /100 WBCS (0.0-0.0); Neutrophils # (A) 4.43 X 10*3/uL (1.80-7.70); Neutrophils % (A) 55.4 %; Platelet Count 297 X 10*3/uL (140-440); RBC 4.17 X 10*6/uL (4.10-5.20); RDW 13.8 % (11.5-14.5); WBC 7.99 X 10*3/uL (4.50-10.00)
[2022-01-25 11:49] LABS: Glucose,Whole Blood 209 mg/dL (70-110)
[2022-01-25] MEDS: HYDROcodone/APAP 10-325MG 1 EACH TAB PO PRN ×2 (13:44→19:08)
--- NOTE | 2022-01-25 13:56 | CDI ---
Documentation Clarification Form Date: 01/25/2022 01:36:43 PM From: Dulce Negron CCS, CCDS Admit Date: 01/23/2022 05:11:00 PM Patient Name: Shelli Harden Visit Number: [id number] Discharge Date: ATTENTION: The Clinical Documentation Specialists (CDI) and [facility] Coding Staff appreciate your assistance in clarifying documentation. Please respond to the clarification below the line at the bottom and electronically sign. The CDI & [facility] Coding staff will review the response and follow-up if needed. Please note: Queries are made part of the Legal Health Record. If you have any questions, please contact the author of this message via ITS. Dr. Adrián Diaz: Per the 01/24 OR Note the following is documented: Left Open Irrigation Debridement. Per the Description of the Procedure: The debridement was sharp debridement of any devitalized looking synovium. There was very minimal debridement. Additional clarification regarding the procedure is requested. History/Risk Factors per the 01/24 H/P & the 01/24 Medical Management Consult: Left TKA 10/11/2021, Breast, Colon, Ovarian and Uterine CA, CVA, DM, GERD, Hyperlipidemia, Hypertension, Osteoarthritis, Pneumonia, Seizure Disorder, Meniere's Disease, Brain Aneurysm. Clinical Indicators: Presented to the ED on 01/23 with worsening left knee pain, warmth. Seen in the ED the night before and discharged for knee strain. Admit with Septic Arthritis for IV Antiobiotics. Treatment 01/24: IV Vancomycin 250 mls @ 125 mls/hr q12H, Lactated Ringers, IV Decadron 4 mg x1, IV Zofran 4 mg x1, IV Cefazolin as directed irrigation, IV Dilaudid 13H/prn, IV Dilaudid 0.5 mg q3H/prn x3, IV Dilaudid 0.25 mg q3H/prn Please clarify the type of procedure performed: [ ] Excisional debridement [ x] Non-excisional debridement [ ] Other; please specify [ ] Unable to determine (Template Last Revised: October 2020) MTDD
--- NOTE | 2022-01-25 14:35 | P.PN ---
Subjective Progress Note Date: 01/25/22 Principal diagnosis: Left knee septic arthritis Progress note date of service 01/25/[address] andrews follow-up on the consult service. Patient seen today [id number]. Patient underwent surgical debridement and I&D on the left knee yesterday evening. Patient is conscious alert oriented Haseeb complain is pain in the knee. And waiting for infectious disease consultat ion. Her blood pressure well controlled 134/72 mean blood pressure 92 Oxygen saturation 97% on room air. Temperature Temperature 98.2 F oral Pulse rate 62 bpm Respiratory rate 16/m normal nonlabored. Physical exam [id number] Patient conscious alert oriented 3 no acute respiratory distress, only his the pain which is expected with the surgery on the left knee with the head as well as left knee arthroplasty which is old. Head was normocephalic and atraumatic pupil was equal reactive oropharynx was negative negative Neck was supple no JVD no thyromegaly no lymphadenopathy trachea midline. Chest absent breast was modified radical mastectomy bilateral for cancer. Lungs was clear to auscultation percussion with mild kyphoscoliosis no wheezes no rhonchi's. Heart regular sinus rhythm and the blood pressure is well controlled no chest pain no shortness of breath Abdomen soft positive bowel sounds no tenderness. Extremities no edema on the right lower extremities the left lower extremity has trace 1 edema with the underlying surgery. Neurologically stable no breakthrough seizures stable with the treatment. Assessment: #1 hypertension with hypertensive heart disease stable #2 history of seizure disorder stable no breakthrough seizures. #3 status post left knee surgical procedure. #4 no new events. Plan: Patient is stable medically For further evaluation by infectious disease and antibiotic Medication for the pain rendered by the orthopedic surgeon for the surgery For further plan depending on the orthopedic plan. Objective - Vital Signs Vital signs: Vital Signs Temp 98.2 F 01/25/22 08:18 Pulse 62 01/25/22 08:18 Resp 16 01/25/22 08:18 BP 134/72 01/25/22 08:18 Pulse Ox 97 01/25/22 08:18 FiO2 Intake & Output 01/24/22 01/25/22 01/25/22 18:59 06:59 18:59 Intake Total 701 Output Total 20 600 Balance 681 -600 Intake: IV 701 Output: Urine 600 Estimated Blood Loss 20 Other: Voiding Method Bedpan Bedpan Diaper Diaper Incontinent Incontinent # Voids 2 - Labs CBC & Chem 7: 01/25/22 07:59 01/24/22 13:32 Labs: Abnormal Lab Results - Last 24 Hours (Table) 01/24/22 01/24/22 01/24/22 Range/Units 13:32 19:51 23:41 Hgb (12.0-15.0) g/dL Hct (37.2-46.3) % Potassium 3.4 L (3.5-5.1) mmol/L Creatinine 0.50 L (0.52-1.04) mg/dL Glucose 130 H (74-99) mg/dL POC Glucose (mg/dL) 163 H 254 H (70-110) mg/dL Calcium 8.3 L (8.4-10.2) mg/dL AST 37 H (14-36) U/L ALT 75 H (4-34) U/L Total Protein 5.8 L (6.3-8.2) g/dL Albumin 3.3 L (3.5-5.0) g/dL 01/25/22 01/25/22 01/25/22 Range/Units 06:45 07:59 11:39 Hgb 11.8 L (12.0-15.0) g/dL Hct 36.8 L (37.2-46.3) % Potassium (3.5-5.1) mmol/L Creatinine (0.52-1.04) mg/dL Glucose (74-99) mg/dL POC Glucose (mg/dL) 199 H 209 H (70-110) mg/dL Calcium (8.4-10.2) mg/dL AST (14-36) U/L ALT (4-34) U/L Total Protein (6.3-8.2) g/dL Albumin (3.5-5.0) g/dL Microbiology - Last 24 Hours (Table) 01/24/22 15:19 Gram Stain - Preliminary Knee - Left Wound Culture - Preliminary 01/24/22 15:18 Gram Stain - Preliminary Knee - Left Wound Culture - Preliminary 01/24/22 15:19 Anaerobic Culture - Preliminary Knee - Left 01/24/22 15:18 Anaerobic Culture - Preliminary Knee - Left 01/23/22 17:42 Blood Culture - Preliminary Blood No Growth after 24 hours 01/23/22 17:41 Blood Culture - Preliminary Blood No Growth after 24 hours
[2022-01-25 16:30] LABS: Glucose,Whole Blood 185 mg/dL (70-110)
[2022-01-25 20:11] LABS: Glucose,Whole Blood 204 mg/dL (70-110)
[2022-01-25] MEDS: amLODIPine 10 MG TAB PO SCH (20:15)
[2022-01-25] MEDS: SENNOSIDES-DOCUSATE SODIUM 1 EACH TAB PO SCH (20:15)
[2022-01-25] MEDS: ATORVASTATIN 20 MG TAB PO SCH (20:16)
--- NOTE | 2022-01-25 22:22 | P.PN ---
Subjective Progress Note Date: 01/25/22 Principal diagnosis: Left knee septic arthritis Patient is a 67-year-old female with recent left knee replacement on 10/10/2021 presented to hospital with acute left knee pain, and this patient with the significantly elevated white count in the left knee aspirate concerning for septic arthritis status post excisional arthroplasty and antibiotic spacer placement. On today's evaluation that is 01/25/2022, the patient denies having any fever or chills patient is breathing comfortably, the patient still complaining of significant pain to the left knee area, denies having any chest pain shortness of breath or cough no abdominal pain or diarrhea Objective - Vital Signs Vital signs: Vital Signs Temp 98.2 F 01/25/22 08:18 Pulse 62 01/25/22 08:18 Resp 16 01/25/22 08:18 BP 134/72 01/25/22 08:18 Pulse Ox 97 01/25/22 08:18 FiO2 Intake & Output 01/24/22 01/25/22 01/25/22 18:59 06:59 18:59 Intake Total 701 Output Total 20 600 Balance 681 -600 Intake: IV 701 Output: Urine 600 Estimated Blood Loss 20 Other: Voiding Method Bedpan Bedpan Diaper Diaper Incontinent Incontinent # Voids 2 - Exam GENERAL DESCRIPTION: An elderly female lying in bed in no distress RESPIRATORY SYSTEM: Unlabored breathing , decreased breath sounds at bases HEART: S1 S2 regular rate and rhythm , ABDOMEN: Soft , no tenderness EXTREMITIES: Left knee is currently dressed no drainage on the dressing - Labs CBC & Chem 7: 01/25/22 07:59 01/24/22 13:32 Labs: Abnormal Lab Results - Last 24 Hours (Table) 01/24/22 01/24/22 01/24/22 Range/Units 13:21 13:32 13:32 Hgb 11.1 L (11.4-16.0) gm/dL Hct 33.9 L (34.0-46.0) % Potassium 3.4 L (3.5-5.1) mmol/L Creatinine 0.50 L (0.52-1.04) mg/dL Glucose 130 H (74-99) mg/dL POC Glucose (mg/dL) 130 H (70-110) mg/dL Calcium 8.3 L (8.4-10.2) mg/dL AST 37 H (14-36) U/L ALT 75 H (4-34) U/L Total Protein 5.8 L (6.3-8.2) g/dL Albumin 3.3 L (3.5-5.0) g/dL 01/24/22 01/24/22 01/25/22 Range/Units 19:51 23:41 06:45 Hgb (11.4-16.0) gm/dL Hct (34.0-46.0) % Potassium (3.5-5.1) mmol/L Creatinine (0.52-1.04) mg/dL Glucose (74-99) mg/dL POC Glucose (mg/dL) 163 H 254 H 199 H (70-110) mg/dL Calcium (8.4-10.2) mg/dL AST (14-36) U/L ALT (4-34) U/L Total Protein (6.3-8.2) g/dL Albumin (3.5-5.0) g/dL 01/25/22 01/25/22 Range/Units 07:59 11:39 Hgb 11.8 L (11.4-16.0) gm/dL Hct 36.8 L (34.0-46.0) % Potassium (3.5-5.1) mmol/L Creatinine (0.52-1.04) mg/dL Glucose (74-99) mg/dL POC Glucose (mg/dL) 209 H (70-110) mg/dL Calcium (8.4-10.2) mg/dL AST (14-36) U/L ALT (4-34) U/L Total Protein (6.3-8.2) g/dL Albumin (3.5-5.0) g/dL Microbiology - Last 24 Hours (Table) 01/24/22 15:19 Gram Stain - Preliminary Knee - Left Wound Culture - Preliminary 01/24/22 15:18 Gram Stain - Preliminary Knee - Left Wound Culture - Preliminary 01/24/22 15:19 Anaerobic Culture - Preliminary Knee - Left 01/24/22 15:18 Anaerobic Culture - Preliminary Knee - Left 01/23/22 17:42 Blood Culture - Preliminary Blood No Growth after 24 hours 01/23/22 17:41 Blood Culture - Preliminary Blood No Growth after 24 hours Assessment and Plan (1) Septic arthritis Current Visit: Yes Status: Acute Code(s): M00.9 - PYOGENIC ARTHRITIS, UNSPECIFIED SNOMED Code(s): 816903270 Plan: 1patient with acute left knee pain in this patient with significant elevated white count in the left knee aspirate concerning for septic arthritis status post excisional arthroplasty and antibiotic spacer placement, cultures are currently pending patient to continue with the vancomycin while waiting for the culture finalized Time with Patient: Less than 30
--- NOTE | 2022-01-25 23:28 | P.CONS ---
History of Present Illness - Reason for Consult Consult date: 01/24/22 Left septic knee Requesting physician: Jeovanny Schmitz - Chief Complaint Left knee pain x 1 days - History of Present Illness Patient is a 67-year female who is s/p left knee arthroplasty completed on 10/30/2021 patient seem to be doing well and apparently did have colonoscopy on 01/22/2022 patient did well and went home, the next day the patient woke up and was doing well patient did went to her neighbor to check on her and on the way back he started having pain to the left knee area that has progressively get worse patient describes the pain to be acute sharp almost 10 out of 10 worse with weightbearing and no radiation with associated swelling to the left knee area patient apparently was evaluated by orthopedics with the patient did have a aspirate of the left knee which was bloody with [id number] RBC and [id number] WBC concerns were negative concerning for septic arthritis the patient was advised to go to the hospital patient was admitted and subsequently was taken to the OR this afternoon and this patient has been diagnosed with a left knee septic arthritis patient is status post left open irrigation debridement and left knee tibial polyethylene exchange total knee arthroplasty patient subsequently has been admitted to hospital infectious disease was consulted for management of antibiotic therapy Review of Systems Positive point has been mentioned in the HPI rest of the systems are negative Past Medical History Past Medical History: Cancer, CVA/TIA, Diabetes Mellitus, GERD/Reflux, Hyperlipidemia, Hypertension, Osteoarthritis (OA), Pneumonia, Seizure Disorder Additional Past Medical History / Comment(s): breast/colon/ovarian,uterine CA, no bp in rt arm. told she had a stroke 03/2014 "blood clot in back of head". hx of head injury 3rd grade, pt states she has "slow thinking process"and seizures started after injury. -last seizure POSSIBLE FEBRUARY 2021 , hx back pain, brain aneurysm 2007, menieres disease History of Any Multi-Drug Resistant Organisms: None Reported Past Surgical History: Adenoidectomy, Appendectomy, Bladder Surgery, Bowel Resection, Breast Surgery, Section, Cholecystectomy, Hernia Repair, Hysterectomy, Joint Replacement, Tonsillectomy Additional Past Surgical History / Comment(s): manpreet. mastectomy , manpreet BREAST BX, MANPREET CATARACT SX, BLADDER SUSPENSION, bowel resection x2 d/t ca, left total knee repl. Past Anesthesia/Blood Transfusion Reactions: Postoperative Nausea & Vomiting (PONV) Past Psychological History: Anxiety, Depression Additional Psychological History / Comment(s): . Smoking Status: Never smoker Past Alcohol Use History: None Reported Past Drug Use History: None Reported - Past Family History Mother Family Medical History: Cancer Father Family Medical History: Cancer Medications and Allergies Home Medications Medication Instructions Recorded Confirmed Type levETIRAcetam [Keppra] 1,000 mg PO BID 12/16/13 01/23/22 History Atorvastatin [Lipitor] 20 mg PO HS 04/21/14 01/23/22 History Enalapril [Vasotec] 20 mg PO BID 06/07/21 01/23/22 History Metoprolol Tartrate [Lopressor] 50 mg PO BID 06/07/21 01/23/22 History amLODIPine [Norvasc] 10 mg PO HS 06/07/21 01/23/22 History hydrALAZINE HCL [Apresoline] 100 mg PO TID 06/07/21 01/23/22 History cloNIDine HCL [Catapres] 0.2 mg PO BID 10/08/21 01/23/22 History carBAMazepine [carBAMazepine ER] 600 mg PO BID 11/13/21 01/23/22 History Aspirin [Adult Low Dose Aspirin EC] 81 mg PO DAILY 12/13/21 01/23/22 History glipiZIDE [Glucotrol] 5 mg PO AC-BID tab 12/17/21 01/23/22 Rx PARoxetine [Paxil] 10 mg PO DAILY 01/18/22 01/23/22 History hydroCHLOROthiazide 25 mg PO DAILY 01/18/22 01/23/22 History Allergies Allergy/AdvReac Type Severity Reaction Status Date / Time chlorhexidine Allergy Itching Verified 01/24/22 13:13 Mushroom Allergy Itching Verified 01/24/22 13:13 Physical Exam Vitals: Vital Signs Temp Pulse Pulse Resp BP BP Pulse Ox 01/24/22 13:18 97.7 F 60 18 133/60 97 01/24/22 07:27 98.4 F 66 16 139/59 97 01/24/22 01:30 98 F 66 16 141/75 95 01/23/22 21:12 151/65 01/23/22 18:59 98.2 F 79 14 195/83 100 01/23/22 18:00 71 18 151/85 96 Intake and Output 01/24/22 01/24/22 01/24/22 06:59 14:59 22:59 Intake Total 901 Balance 901 Intake: IV 901 Other: Voiding Method Diaper Incontinent # Voids 1 GENERAL DESCRIPTION: An elderly female lying in bed, no distress. No tachypnea or accessory muscle of respiration use. HEENT: Shows Pallor , no scleral icterus. Oral mucous membrane is dry. No pharyngeal erythema or thrush NECK: Trachea central, no thyromegaly. LUNGS: Unlabored breathing. Clear to auscultation anteriorly. No wheeze or crackle. HEART: S1, S2, regular rate and rhythm. No loud murmur ABDOMEN: Soft, no tenderness , guarding or rigidity, no organomegaly EXTREMITIES: Left knee is currently dressed in OR dressing SKIN: No rash, no masses palpable. NEUROLOGICAL: The patient is awake, alert, oriented x3, mood and affect normal. Results CBC & Chem 7: 01/25/22 07:59 01/24/22 13:32 Labs: Abnormal Lab Results - Last 24 Hours (Table) 01/23/22 01/23/22 01/23/22 Range/Units 17:35 17:35 17:35 Hgb (11.4-16.0) gm/dL Hct (34.0-46.0) % ESR 43 H (0-20) mm/hr Potassium (3.5-5.1) mmol/L Creatinine (0.52-1.04) mg/dL Glucose (74-99) mg/dL POC Glucose (mg/dL) (70-110) mg/dL Calcium (8.4-10.2) mg/dL AST (14-36) U/L ALT (4-34) U/L C-Reactive Protein 19.9 H (<1.0) mg/dL Total Protein (6.3-8.2) g/dL Albumin (3.5-5.0) g/dL Procalcitonin 0.27 H (0.02-0.09) ng/mL Urine Appearance (Clear) Urine Protein (Negative) Urine Glucose (UA) (Negative) Urine Bacteria (None) /hpf Urine Mucus (None) /hpf 01/23/22 01/24/22 01/24/22 Range/Units 20:12 06:44 07:20 Hgb (11.4-16.0) gm/dL Hct (34.0-46.0) % ESR (0-20) mm/hr Potassium (3.5-5.1) mmol/L Creatinine (0.52-1.04) mg/dL Glucose (74-99) mg/dL POC Glucose (mg/dL) 187 H 145 H (70-110) mg/dL Calcium (8.4-10.2) mg/dL AST (14-36) U/L ALT (4-34) U/L C-Reactive Protein (<1.0) mg/dL Total Protein (6.3-8.2) g/dL Albumin (3.5-5.0) g/dL Procalcitonin (0.02-0.09) ng/mL Urine Appearance Cloudy H (Clear) Urine Protein Trace H (Negative) Urine Glucose (UA) 3+ H (Negative) Urine Bacteria Occasional H (None) /hpf Urine Mucus Rare H (None) /hpf 01/24/22 01/24/22 01/24/22 Range/Units 11:23 13:21 13:32 Hgb 11.1 L (11.4-16.0) gm/dL Hct 33.9 L (34.0-46.0) % ESR (0-20) mm/hr Potassium (3.5-5.1) mmol/L Creatinine (0.52-1.04) mg/dL Glucose (74-99) mg/dL POC Glucose (mg/dL) 142 H 130 H (70-110) mg/dL Calcium (8.4-10.2) mg/dL AST (14-36) U/L ALT (4-34) U/L C-Reactive Protein (<1.0) mg/dL Total Protein (6.3-8.2) g/dL Albumin (3.5-5.0) g/dL Procalcitonin (0.02-0.09) ng/mL Urine Appearance (Clear) Urine Protein (Negative) Urine Glucose (UA) (Negative) Urine Bacteria (None) /hpf Urine Mucus (None) /hpf 01/24/22 Range/Units 13:32 Hgb (11.4-16.0) gm/dL Hct (34.0-46.0) % ESR (0-20) mm/hr Potassium 3.4 L (3.5-5.1) mmol/L Creatinine 0.50 L (0.52-1.04) mg/dL Glucose 130 H (74-99) mg/dL POC Glucose (mg/dL) (70-110) mg/dL Calcium 8.3 L (8.4-10.2) mg/dL AST 37 H (14-36) U/L ALT 75 H (4-34) U/L C-Reactive Protein (<1.0) mg/dL Total Protein 5.8 L (6.3-8.2) g/dL Albumin 3.3 L (3.5-5.0) g/dL Procalcitonin (0.02-0.09) ng/mL Urine Appearance (Clear) Urine Protein (Negative) Urine Glucose (UA) (Negative) Urine Bacteria (None) /hpf Urine Mucus (None) /hpf Assessment and Plan (1) Septic arthritis Current Visit: Yes Status: Acute Code(s): M00.9 - PYOGENIC ARTHRITIS, UNSPECIFIED SNOMED Code(s): 183990820 Plan: 1patient presented to hospital with acute left knee pain in this patient has been diagnosed with a left knee septic arthritis patient is status post left open irrigation and debridement along with a left knee tibial polyethylene exchange, the cultures currently pending more likely from gram-positive skin scott. 2blood cultures have been obtained and local cultures are currently pending which will be followed. 3vancomycin pharmacy to dose target trough of 15 while watching kidney function and vancomycin trough closely. We will follow on clinical condition and cultures to further adjust medication if needed Thank you for this consultation will follow this patient along with you Time with Patient: Greater than 30
[2022-01-26] MEDS: HYDROcodone/APAP 10-325MG 1 EACH TAB PO PRN ×4 (00:11→16:47)
[2022-01-26] MEDS: SODIUM CHLORIDE 0.9% 1,000 ML IV SCH ×3 (04:02→21:42)
[2022-01-26 06:52] LABS: Glucose,Whole Blood 200 mg/dL (70-110)
[2022-01-26] MEDS ORDERED: VANCOMYCIN TROUGH DUE 1 EACH MISC MISCELLANE ONE (07:00)
[2022-01-26] MEDS: INSULIN ASPART (NovoLOG) 100 UNIT/ML VIAL SQ SCH ×4 (08:03→21:02)
[2022-01-26] MEDS: hydrALAZINE HCL 50 MG TAB PO SCH ×3 (08:04→21:02)
[2022-01-26] MEDS: lisinopriL 20 MG TAB PO SCH ×2 (08:04→20:05)
[2022-01-26] MEDS: METOPROLOL TARTRATE 50 MG TAB PO SCH ×2 (08:05→20:05)
[2022-01-26] MEDS: hydroCHLOROthiazide 25 MG TAB PO SCH (08:05)
[2022-01-26] MEDS: glipiZIDE 5 MG TAB PO SCH ×2 (08:05→16:48)
[2022-01-26] MEDS: ASPIRIN 81 MG PO SCH ×2 (08:05→20:05)
[2022-01-26] MEDS: levETIRAcetam 500 MG TAB PO SCH ×2 (08:05→20:06)
[2022-01-26] MEDS: cloNIDine HCL 0.2 MG TAB PO SCH ×2 (08:05→20:06)
[2022-01-26] MEDS: PARoxetine 10 MG TAB PO SCH (08:06)
[2022-01-26] MEDS: carBAMazepine 300 MG CPMP.12HR PO SCH ×2 (08:06→20:06)
--- NOTE | 2022-01-26 10:09 | P.PN ---
Subjective Progress Note Date: 01/26/22 Principal diagnosis: Status post I&D with polyexchange left knee This is a 67 year-old female post left knee I&D with poly exchange. This is post-op day 2. The patient was evaluated at the bedside today. The patient denies nausea, vomiting, abdominal pain, shortness of breath, and chest pain this morning. She states her pain is controlled at this time. The patient has ambulating to the bathroom. Objective - Vital Signs Vital signs: Vital Signs Temp 98.2 F 01/26/22 08:00 Pulse 63 01/26/22 08:00 Resp 16 01/26/22 08:00 BP 155/78 01/26/22 08:00 Pulse Ox 97 01/26/22 08:00 FiO2 Intake & Output 01/25/22 01/26/22 01/26/22 18:59 06:59 18:59 Other: Voiding Method Bedpan Bedpan Diaper Diaper Incontinent Incontinent # Voids 3 5 - Exam The patient does not appear in acute distress. Alert and orientated x3. Dressing is clean dry and intact. Incision appears fine with no erythema or active drainage. Calf is soft and nontender. Good foot and ankle motion wi thout difficulty. Sensation and circulatory status is intact. - Labs CBC & Chem 7: 01/25/22 07:59 01/24/22 13:32 Labs: Abnormal Lab Results - Last 24 Hours (Table) 01/25/22 01/25/22 01/25/22 Range/Units 07:59 11:39 16:28 Hgb 11.8 L (12.0-15.0) g/dL Hct 36.8 L (37.2-46.3) % POC Glucose (mg/dL) 209 H 185 H (70-110) mg/dL 01/25/22 01/26/22 Range/Units 20:09 06:51 Hgb (12.0-15.0) g/dL Hct (37.2-46.3) % POC Glucose (mg/dL) 204 H 200 H (70-110) mg/dL Microbiology - Last 24 Hours (Table) 01/24/22 15:18 Gram Stain - Preliminary Knee - Left Wound Culture - Preliminary 01/24/22 15:19 Gram Stain - Preliminary Knee - Left Wound Culture - Preliminary 01/23/22 17:41 Blood Culture - Preliminary Blood No Growth after 48 hours 01/23/22 17:42 Blood Culture - Preliminary Blood No Growth after 48 hours Assessment and Plan (1) Left knee pain Current Visit: No Status: Acute Code(s): M25.562 - PAIN IN LEFT KNEE SNOMED Code(s): 9993153445 (2) Status post total left knee replacement Current Visit: No Status: Acute Priority: Medium Code(s): Z96.652 - [place] ESENCE OF LEFT ARTIFICIAL KNEE JOINT SNOMED Code(s): 8641405867657 Plan: 1. Continue pain control. 2. Anticoagulation with Aspirin 81 mg. 3. Continue ambulation. 4. Antibiotics per infectious disease. 4. Anticipate discharge home after antibiotics have been determined by ID.
[2022-01-26 11:38] LABS: Glucose,Whole Blood 230 mg/dL (70-110)
[2022-01-26] MEDS: MULTIVITAMINS, THERA 1 EACH TAB PO SCH (12:09)
--- NOTE | 2022-01-26 12:39 | P.PN ---
Subjective Progress Note Date: 01/26/22 Principal diagnosis: Left knee septic arthritis Patient is a 67-year-old female with recent left knee replacement on 10/10/2021 presented to hospital with acute left knee pain, and this patient with the significantly elevated white count in the left knee aspirate concerning for septic arthritis status post excisional arthroplasty and antibiotic spacer placement. On today's evaluation that is 01/26/2022, the patient remains to be afebrile, patient is breathing comfortably, the patient pain to the left knee area is down to about 8 out of 10 and, patient denies having any chest pain shortness of breath or cough no abdominal pain or diarrhea Objective - Vital Signs Vital signs: Vital Signs Temp 98.2 F 01/26/22 08:00 Pulse 63 01/26/22 08:00 Resp 16 01/26/22 08:00 BP 155/78 01/26/22 08:00 Pulse Ox 97 01/26/22 08:00 FiO2 Intake & Output 01/25/22 01/26/22 01/26/22 18:59 06:59 18:59 Other: Voiding Method Bedpan Bedpan Diaper Diaper Incontinent Incontinent # Voids 3 5 - Exam GENERAL DESCRIPTION: An elderly female lying in bed in no distress RESPIRATORY SYSTEM: Unlabored breathing , decreased breath sounds at bases HEART: S1 S2 regular rate and rhythm , ABDOMEN: Soft , no tenderness EXTREMITIES: Left knee is currently dressed no drainage on the dressing - Labs CBC & Chem 7: 01/25/22 07:59 01/24/22 13:32 Labs: Abnormal Lab Results - Last 24 Hours (Table) 01/25/22 01/25/22 01/25/22 Range/Units 11:39 16:28 20:09 POC Glucose (mg/dL) 209 H 185 H 204 H (70-110) mg/dL 01/26/22 Range/Units 06:51 POC Glucose (mg/dL) 200 H (70-110) mg/dL Microbiology - Last 24 Hours (Table) 01/24/22 15:18 Gram Stain - Preliminary Knee - Left Wound Culture - Preliminary 01/24/22 15:19 Gram Stain - Preliminary Knee - Left Wound Culture - Preliminary 01/23/22 17:41 Blood Culture - Preliminary Blood No Growth after 48 hours 01/23/22 17:42 Blood Culture - Preliminary Blood No Growth after 48 hours Assessment and Plan (1) Septic arthritis Current Visit: Yes Status: Acute Code(s): M00.9 - PYOGENIC ARTHRITIS, UNSPECIFIED SNOMED Code(s): 219329267 Plan: 1patient presented to hospital with acute left knee pain in this patient has been diagnosed with a left knee septic arthritis patient is status post left open irrigation and debridement along with a left knee tibial polyethylene exchange, the cultures currently pending more likely from gram-positive skin scott. 2blood cultures have been obtained and local cultures are currently pending which will be followed. 3patient will continue with vancomycin pharmacy to dose target trough of 15 while waiting for the cultures to finalize Time with Patient: Less than 30
[2022-01-26] MEDS: VANCOMYCIN 1,250 MG in SODIUM CHLORIDE 0.9% 250 ML IVPB SCH ×2 (13:01→19:32)
--- NOTE | 2022-01-26 15:14 | P.PN ---
Subjective Progress Note Date: 01/26/22 Progress note follow-up on the consult Attending physician orthopedic Dr. Gerardo Dictating the follow-up by Dr. Siegel. I received a call this morning from Marga OROPEZA on the perfect surface and stated that patient had no IV, could not get IV and, the CRN could not get IV except in the right foot. IV antibiotic ordered by Dr. Oconnor infectious disease, she stated as well in the weekend nobody in the hospital able to put midline oral PICC line. I did refer her to infectious disease Dr. Oconnor who ordered the IV antibiotic with the possibility that may order oral until Friday because the hospital doesn 't have capacity to accommodate PICC line or midline by radiology or surgical. And the patient has to wait until Friday. I did discuss on the visit with the RN Marga and she contacted Dr. Oconnor and he still will continue the order of the PICC line. This patient seen and evaluated and her infection in the left knee with a history of total knee arthroplasty with the presence of septic arthritis patient underwent by orthopedic procedure with the incision and draining. Patient stated that she is feeling dizzy however she had history of Mnire's disease in the past and we did repeat orthostatic blood pressure at bedside during my presence and her blood pressure is stable with no orthostatic hypotension and was done by the [facility]. On the exam patient was conscious alert oriented able to communicate freely only pain is in her left knee. And she had a dressing applied. Head was normocephalic and atraumatic pupil was equal reactive conjunctiva was pink sclera was nonicteric. Oropharynx was normal able to eat and drink Neck was supple no JVD no thyromegaly no lymphadenopathy. Her blood pressure currently 126/75 as well as a repeat was normal was normal pulse ox 96% on room air her heart rate 67 regular sinus and respiratory rate was 16/m nonlabored her temperature 97.4 FL oral. Chest is clear to auscultation and percussion Heart was regular sinus rhythm Abdomen is soft positive bowel sounds Extremities: Left leg trace edema with the recent surgery for incision and drainage for septic arthritis. Neurologically stable. Assessment: Patient stable general condition medically and the blood pressure is controlled #2 patient is still embedded unable to ambulate because of her left knee. She is still receiving vancomycin through the hep well in the right foot until PICC line is plan as no other alternative. #3 she had bilateral breast resection for cancer. #4 history of hypertension with hypertensive heart heart disease and stable at this time. Plan: We'll continue the current treatment. #2 antibiotic per infectious disease and orthopedic. #3 checked with the orthop edic in regards of anticoagulation and aspirin versus heparin for prophylaxis for DVT and soft with them and they are afraid of bleeding at this time Objective - Vital Signs Vital signs: Vital Signs Temp 97.4 F L 01/26/22 14:00 Pulse 67 01/26/22 14:00 Resp 16 01/26/22 14:00 BP 126/75 01/26/22 14:00 Pulse Ox 96 01/26/22 14:00 FiO2 Intake & Output 01/25/22 01/26/22 01/26/22 18:59 06:59 18:59 Other: Voiding Method Bedpan Bedpan Diaper Diaper Incontinent Incontinent # Voids 3 5 - Labs CBC & Chem 7: 01/25/22 07:59 01/24/22 13:32 Labs: Abnormal Lab Results - Last 24 Hours (Table) 01/25/22 01/25/22 01/26/22 Range/Units 16:28 20:09 06:51 POC Glucose (mg/dL) 185 H 204 H 200 H (70-110) mg/dL 01/26/22 Range/Units 11:36 POC Glucose (mg/dL) 230 H (70-110) mg/dL Microbiology - Last 24 Hours (Table) 01/24/22 15:18 Gram Stain - Preliminary Knee - Left Wound Culture - Preliminary 01/24/22 15:19 Gram Stain - Preliminary Knee - Left Wound Culture - Preliminary 01/23/22 17:41 Blood Culture - Preliminary Blood No Growth after 48 hours 01/23/22 17:42 Blood Culture - Preliminary Blood No Growth after 48 hours
[2022-01-26 16:42] LABS: Glucose,Whole Blood 168 mg/dL (70-110)
[2022-01-26] MEDS: ATORVASTATIN 20 MG TAB PO SCH (20:04)
[2022-01-26] MEDS: amLODIPine 10 MG TAB PO SCH (20:05)
[2022-01-26] MEDS: SENNOSIDES-DOCUSATE SODIUM 1 EACH TAB PO SCH (20:05)
[2022-01-26 20:36] LABS: Glucose,Whole Blood 202 mg/dL (70-110)
[2022-01-27] MEDS: SODIUM CHLORIDE 0.9% 1,000 ML IV SCH ×2 (06:50→12:15)
[2022-01-27 06:59] LABS: Glucose,Whole Blood 231 mg/dL (70-110)
[2022-01-27] MEDS: HYDROcodone/APAP 10-325MG 1 EACH TAB PO PRN ×3 (07:00→19:56)
[2022-01-27] MEDS: VANCOMYCIN 1,250 MG in SODIUM CHLORIDE 0.9% 250 ML IVPB SCH ×2 (07:01→18:49)
[2022-01-27] MEDS: hydroCHLOROthiazide 25 MG TAB PO SCH (07:14)
[2022-01-27] MEDS: lisinopriL 20 MG TAB PO SCH ×2 (07:14→20:22)
[2022-01-27] MEDS: hydrALAZINE HCL 50 MG TAB PO SCH ×3 (07:14→20:22)
[2022-01-27] MEDS: glipiZIDE 5 MG TAB PO SCH ×2 (07:14→16:59)
[2022-01-27] MEDS: ASPIRIN 81 MG PO SCH ×2 (07:14→20:22)
[2022-01-27] MEDS: cloNIDine HCL 0.2 MG TAB PO SCH ×2 (07:14→20:22)
[2022-01-27] MEDS: INSULIN ASPART (NovoLOG) 100 UNIT/ML VIAL SQ SCH ×4 (07:15→22:15)
[2022-01-27] MEDS: levETIRAcetam 500 MG TAB PO SCH ×2 (07:16→20:21)
[2022-01-27] MEDS: carBAMazepine 300 MG CPMP.12HR PO SCH ×2 (07:16→20:22)
[2022-01-27] MEDS: PARoxetine 10 MG TAB PO SCH (07:17)
[2022-01-27] MEDS: METOPROLOL TARTRATE 50 MG TAB PO SCH ×2 (07:41→20:22)
--- NOTE | 2022-01-27 09:33 | P.PN ---
Subjective Progress Note Date: 01/27/22 Principal diagnosis: Status post I&D with polyexchange left knee This is a 67 year-old female post left knee I&D with poly exchange. This is post-op day 3. The patient was evaluated at the bedside today. The patient denies nausea, vomiting, abdominal pain, shortness of breath, and chest pain this morning. She states her pain is controlled at this time. The patient has ambulating to the bathroom. We are awaiting antibiotic recommendations for discharge. Objective - Vital Signs Vital signs: Vital Signs Temp 98.3 F 01/27/22 07:58 Pulse 73 01/27/22 07:58 Resp 18 01/27/22 07:58 BP 159/81 01/27/22 07:58 Pulse Ox 97 01/27/22 07:58 FiO2 Intake & Output 01/26/22 01/27/22 01/27/22 18:59 06:59 18:59 Intake Total 250 Balance 250 Intake: Oral 250 Other: Voiding Method Bedpan Bedpan External Catheter External Catheter # Voids 1 # Bowel Movements 1 - Exam The patient does not appear in acute distress. Alert and orientated x3. Dressing is clean dry and intact. Incision appears fine with no erythema or active drainage. Calf is soft and nontender. Good foot and ankle motion without difficulty. Sensation and circulatory status is intact. - Labs CBC & Chem 7: 01/25/22 07:59 01/24/22 13:32 Labs: Abnormal Lab Results - Last 24 Hours (Table) 01/26/22 01/26/22 01/26/22 Range/Units 11:36 16:41 20:17 POC Glucose (mg/dL) 230 H 168 H 202 H (70-110) mg/dL 01/27/22 Range/Units 06:58 POC Glucose (mg/dL) 231 H (70-110) mg/dL Microbiology - Last 24 Hours (Table) 01/24/22 15:18 Anaerobic Culture - Preliminary Knee - Left 01/24/22 15:19 Anaerobic Culture - Preliminary Knee - Left 01/23/22 17:42 Blood Culture - Preliminary Blood No Growth after 72 hours 01/23/22 17:41 Blood Culture - Preliminary Blood No Growth after 72 hours 01/24/22 15:18 Gram Stain - Final Knee - Left Wound Culture - Final 01/24/22 15:19 Gram Stain - Final Knee - Left Wound Culture - Final Assessment and Plan (1) Left knee pain Current Visit: No Status: Acute Code(s): M25.562 - PAIN IN LEFT KNEE SNOMED Code(s): 6108306390 (2) Status post total left knee replacement Current Visit: No Status: Acute Priority: Medium Code(s): Z96.652 - PRESENCE OF LEFT ARTIFICIAL KNEE JOINT SNOMED Code(s): 7008232030121 Plan: 1. Continue pain control. 2. Anticoagulation with Aspirin 81 mg. 3. Continue ambulation. 4. Antibiotics per infectious disease. 4. Anticipate discharge home after antibiotics have been determined by ID.
[2022-01-27 11:39] LABS: Glucose,Whole Blood 205 mg/dL (70-110)
[2022-01-27 11:53] LABS: Basophils # (A) 0.02 X 10*3/uL (0.00-0.10); Basophils % (A) 0.2 %; Eosinophils # (A) 0.19 X 10*3/uL (0.04-0.35); Eosinophils % (A) 2.3 %; HCT 34.3 % (37.2-46.3); HGB 10.9 g/dL (12.0-15.0); Immature Grans, Automated 0.4 %; Lymphocytes # (A) 2.42 X 10*3/uL (0.90-5.00); Lymphocytes % (A) 29.7 %; MCH 27.5 pg (27.0-32.0); MCHC 31.8 g/dL (32.0-37.0); MCV 86.4 fL (80.0-97.0); Mean Platelet Volume 9.6 fL (9.5-12.2); Monocytes # (A) 0.64 X 10*3/uL (0.20-1.00); Monocytes % (A) 7.8 %; NRBC Per 100 WBC 0 /100 WBCS (0.0-0.0); Neutrophils # (A) 4.86 X 10*3/uL (1.80-7.70); Neutrophils % (A) 59.6 %; Platelet Count 406 X 10*3/uL (140-440); RBC 3.97 X 10*6/uL (4.10-5.20); RDW 13.4 % (11.5-14.5); WBC 8.16 X 10*3/uL (4.50-10.00)
--- NOTE | 2022-01-27 12:15 | P.PN ---
Subjective Progress Note Date: 01/27/22 Progress note follow-up on consultation requested by Dr. Diaz attending for medical management with a history of hypertension, seizure disorder. Dictation by Dr. Wood. Date of service 01/27/2022. Patient seen evaluated [id number] Patient has no IV as the IV was placed on her right foot was not functioning, and no anesthesia or radiology to place PICC line or midline during the weekend. Patient eating, but no bowel movement, normal urination. Pain in the right knee with minimal movement. Status post incision and drainage by the attending physician orthopedic surgeon Dr. Adrián Diaz. Medicine service on consult status. On questioning the patient, no dizziness no headache no blurred vision, only no bowel movement since admission to the hospital. And started on Senokot-S twice a day when necessary. Her blood pressure mildly elevated which is fluctuation. And we'll start her on Vasotec 1.25 mg every 6 hour when necessary for blood pressure above 140 systolic. On exam: Patient is conscious alert oriented 3 no acute respiratory distress. Pain control per orthopedic. Infectious left knee with the total knee arthroplasty. Head was normocephalic and atraumatic pupil was equal reactive, hearing normal him a Oropharynx she has 1 tooth in the upper jaw and one toast in the lower jaw and she able to eat. Neck was supple no JVD no thyromegaly no lymphadenopathy trachea midline. Chest: Has symmetrical, no wheezes or rhonchi's, normal breath sounds Breast was absent due to modified radical mastectomy bilateral for cancer. No lymph node. Heart: PMI in the fifth intercostal space normal S1 and S2 no gallop. Abdomen: Obese positive bowel sounds and no BM since admission Extremities no edema, positive pulses and no IV in her right foot Neurologically no seizures through hospitalization no lateralizing sign no cranial nerve deficit. Assessment: #1 left total knee arthroplasty in association with septic arthritis #2 status post incision and drainage #3 waiting for placement PICC line tomorrow or midline for IV antibiotic ordered by infectious disease and orthopedic. #4 diabetes mellitus type 2 currently controlled. #5 hypertension fluctuation of the blood pressure associated with her emotion. Plan: #1 start Senokot-S 1 twice a day when necessary for constipation. #2 Vasotec 1.25 mg IV push every 8 hours when necessary, however patient does not have IV access. And will adjust medication for the hypertension which is only today elevated. Objective - Vital Signs Vital signs: Vital Signs Temp 98.3 F 01/27/22 07:58 Pulse 73 01/27/22 07:58 Resp 18 01/27/22 07:58 BP 159/81 01/27/22 07:58 Pulse Ox 97 01/27/22 07:58 FiO2 Intake & Output 01/26/22 01/27/22 01/27/22 18:59 06:59 18:59 Intake Total 250 Balance 250 Intake: Oral 250 Other: Voiding Method Bedpan Bedpan External Catheter External Catheter # Voids 1 # Bowel Movements 1 - Labs CBC & Chem 7: 01/27/22 09:17 01/24/22 13:32 Labs: Abnormal Lab Results - Last 24 Hours (Table) 01/26/22 01/26/22 01/27/22 Range/Units 16:41 20:17 06:58 RBC (4.10-5.20) X 10*6/uL Hgb (12.0-15.0) g/dL Hct (37.2-46.3) % MCHC (32.0-37.0) g/dL POC Glucose (mg/dL) 168 H 202 H 231 H (70-110) mg/dL 01/27/22 01/27/22 Range/Units 09:17 11:37 RBC 3.97 L (4.10-5.20) X 10*6/uL Hgb 10.9 L (12.0-15.0) g/dL Hct 34.3 L (37.2-46.3) % MCHC 31.8 L (32.0-37.0) g/dL POC Glucose (mg/dL) 205 H (70-110) mg/dL Microbiology - Last 24 Hours (Table) 01/24/22 15:18 Anaerobic Culture - Preliminary Knee - Left 01/24/22 15:19 Anaerobic Culture - Preliminary Knee - Left 01/23/22 17:42 Blood Culture - Preliminary Blood No Growth after 72 hours 01/23/22 17:41 Blood Culture - Preliminary Blood No Growth after 72 hours 01/24/22 15:18 Gram Stain - Final Knee - Left Wound Culture - Final 01/24/22 15:19 Gram Stain - Final Knee - Left Wound Culture - Final
[2022-01-27] MEDS: MULTIVITAMINS, THERA 1 EACH TAB PO SCH (12:25)
[2022-01-27] MEDS: SENNOSIDES-DOCUSATE SODIUM 1 EACH TAB PO SCH ×3 (12:29→20:23)
[2022-01-27 16:49] LABS: Glucose,Whole Blood 180 mg/dL (70-110)
[2022-01-27] MEDS: ATORVASTATIN 20 MG TAB PO SCH (20:22)
[2022-01-27] MEDS: amLODIPine 10 MG TAB PO SCH (20:22)
[2022-01-27 22:13] LABS: Glucose,Whole Blood 204 mg/dL (70-110)
[2022-01-28] MEDS: SODIUM CHLORIDE 0.9% 1,000 ML IV SCH ×4 (02:31→22:55)
[2022-01-28] MEDS: HYDROcodone/APAP 10-325MG 1 EACH TAB PO PRN ×2 (03:34→11:24)
[2022-01-28 07:13] LABS: Glucose,Whole Blood 203 mg/dL (70-110)
[2022-01-28 07:17] LABS: African American GFR (CKD) >90 (>60 ml/min/1.73 sqM); Non-African American GFR(CKD) 85 (>60 ml/min/1.73 sqM)
--- NOTE | 2022-01-28 07:30 | P.PN ---
Subjective Progress Note Date: 01/27/22 Principal diagnosis: Left knee septic arthritis Patient is a 67-year-old female with recent left knee replacement on 10/10/2021 presented to hospital with acute left knee pain, and this patient with the significantly elevated white count in the left knee aspirate concerning for septic arthritis status post excisional arthroplasty and antibiotic spacer placement. On today's evaluation that is 01/27/2022, the patient denies any fever or chills, patient is breathing comfortably on room air, the patient pain to the left knee area slightly decreased in intensity, patient denies having any chest pain shortness of breath or cough no abdominal pain or diarrhea Objective - Vital Signs Vital signs: Vital Signs Temp 97.8 F 01/27/22 14:00 Pulse 56 L 01/27/22 14:00 Resp 16 01/27/22 14:00 BP 131/63 01/27/22 14:00 Pulse Ox 93 L 01/27/22 14:00 FiO2 Intake & Output 01/26/22 01/27/22 01/27/22 18:59 06:59 18:59 Intake Total 250 Balance 250 Intake: Oral 250 Other: Voiding Method Bedpan Bedpan External Catheter External Catheter # Voids 1 # Bowel Movements 1 - Exam GENERAL DESCRIPTION: An elderly female lying in bed in no distress RESPIRATORY SYSTEM: Unlabored breathing , decreased breath sounds at bases HEART: S1 S2 regular rate and rhythm , ABDOMEN: Soft , no tenderness EXTREMITIES: Left knee swelling or significant redness or drainage - Labs CBC & Chem 7: 01/27/22 09:17 01/28/22 06:31 Labs: Abnormal Lab Results - Last 24 Hours (Table) 01/26/22 01/26/22 01/27/22 Range/Units 16:41 20:17 06:58 RBC (4.10-5.20) X 10*6/uL Hgb (12.0-15.0) g/dL Hct (37.2-46.3) % MCHC (32.0-37.0) g/dL POC Glucose (mg/dL) 168 H 202 H 231 H (70-110) mg/dL 01/27/22 01/27/22 Range/Units 09:17 11:37 RBC 3.97 L (4.10-5.20) X 10*6/uL Hgb 10.9 L (12.0-15.0) g/dL Hct 34.3 L (37.2-46.3) % MCHC 31.8 L (32.0-37.0) g/dL POC Glucose (mg/dL) 205 H (70-110) mg/dL Microbiology - Last 24 Hours (Table) 01/24/22 15:18 Anaerobic Culture - Preliminary Knee - Left 01/24/22 15:19 Anaerobic Culture - Preliminary Knee - Left 01/23/22 17:42 Blood Culture - Preliminary Blood No Growth after 72 hours 01/23/22 17:41 Blood Culture - Preliminary Blood No Growth after 72 hours 01/24/22 15:18 Gram Stain - Final Knee - Left Wound Culture - Final 01/24/22 15:19 Gram Stain - Final Knee - Left Wound Culture - Final Assessment and Plan (1) Septic arthritis Current Visit: Yes Status: Acute Code(s): M00.9 - PYOGENIC ARTHRITIS, UNSPECIFIED SNOMED Code(s): 189233347 Plan: 1patient presented to hospital with acute left knee pain in this patient has been diagnosed with a left knee septic arthritis patient is status post left open irrigation and debridement along with a left knee tibial polyethylene exchange, the cultures currently pending more likely from gram-positive skin scott. 2blood cultures has been negative, glucose cultures currently pending 3patient to continue with vancomycin pharmacy to dose target trough of 15 while waiting for the cultures to finalize to determine discharge antibiotics Time with Patient: Less than 30
[2022-01-28] MEDS: levETIRAcetam 500 MG TAB PO SCH ×2 (07:38→20:19)
[2022-01-28] MEDS: hydrALAZINE HCL 50 MG TAB PO SCH ×3 (07:38→20:19)
[2022-01-28] MEDS: glipiZIDE 5 MG TAB PO SCH ×2 (07:38→17:15)
[2022-01-28] MEDS: carBAMazepine 300 MG CPMP.12HR PO SCH ×2 (07:39→20:19)
[2022-01-28] MEDS: PARoxetine 10 MG TAB PO SCH (07:39)
[2022-01-28] MEDS: METOPROLOL TARTRATE 50 MG TAB PO SCH ×2 (07:39→20:20)
[2022-01-28] MEDS: lisinopriL 20 MG TAB PO SCH ×2 (07:39→20:20)
[2022-01-28] MEDS: cloNIDine HCL 0.2 MG TAB PO SCH ×2 (07:39→20:19)
[2022-01-28] MEDS: MAGNESIUM HYDROXIDE 2,400 MG/10 ML CUP PO SCH (07:39)
[2022-01-28] MEDS: ASPIRIN 81 MG PO SCH ×2 (07:39→20:20)
[2022-01-28] MEDS: SENNOSIDES-DOCUSATE SODIUM 1 EACH TAB PO SCH ×2 (07:39→20:19)
[2022-01-28] MEDS: hydroCHLOROthiazide 25 MG TAB PO SCH (07:39)
[2022-01-28] MEDS: INSULIN ASPART (NovoLOG) 100 UNIT/ML VIAL SQ SCH ×4 (07:40→22:24)
[2022-01-28] MEDS: VANCOMYCIN 1,250 MG in SODIUM CHLORIDE 0.9% 250 ML IVPB SCH ×2 (07:47→19:07)
[2022-01-28 10:57] LABS: Glucose,Whole Blood 254 mg/dL (70-110)
[2022-01-28] MEDS: MULTIVITAMINS, THERA 1 EACH TAB PO SCH (11:26)
--- NOTE | 2022-01-28 11:46 | P.PN ---
Subjective Progress Note Date: 01/28/22 Principal diagnosis: Total knee arthroplasty S/P I and D Patient is seen at bedside this morning. She is postop day #4 from I and D with poly exchange of previous left total knee arthroplasty. She has pain at the surgical site as expected but denies any new complaints. She denies numbness, tingling or calf pain. Review of systems is negative for fever, chills, chest pain, shortness of breath or other. Cultures are pending finalization but have been negative thus far including Gram stain. Objective - Vital Signs Vital signs: Vital Signs Temp 97.6 F 01/28/22 07:18 Pulse 61 01/28/22 07:18 Resp 22 01/28/22 07:18 BP 151/70 01/28/22 07:18 Pulse Ox 91 L 01/28/22 07:18 FiO2 Intake & Output 01/27/22 01/28/22 01/28/22 18:59 06:59 18:59 Output Total 650 500 Balance -650 -500 Output: Urine 650 500 Other: Voiding Method Bedpan External Catheter External Catheter External Catheter # Voids 1 - Exam Inspection reveals a benign surgical wound. There is no active bleeding or drainage. No progressive erythema or effusion. It is not hot to touch. Neurovascular status is intact throughout the lower extremity with motor and sensation fully intact. Calf is soft and nontender. 2+ dorsalis pedis pulse and less than 2 second cap refill is present. - Constitutional General appearance: Present: no acute distress - Labs CBC & Chem 7: 01/27/22 09:17 01/28/22 06:31 Labs: Abnormal Lab Results - Last 24 Hours (Table) 01/27/22 01/27/22 01/27/22 Range/Units 09:17 16:47 22:11 RBC 3.97 L (4.10-5.20) X 10*6/uL Hgb 10.9 L (12.0-15.0) g/dL Hct 34.3 L (37.2-46.3) % MCHC 31.8 L (32.0-37.0) g/dL POC Glucose (mg/dL) 180 H 204 H (70-110) mg/dL 01/28/22 01/28/22 Range/Units 07:11 10:56 RBC (4.10-5.20) X 10*6/uL Hgb (12.0-15.0) g/dL Hct (37.2-46.3) % MCHC (32.0-37.0) g/dL POC Glucose (mg/dL) 203 H 254 H (70-110) mg/dL Microbiology - Last 24 Hours (Table) 01/24/22 15:19 Anaerobic Culture - Preliminary Knee - Left 01/23/22 17:42 Blood Culture - Preliminary Blood No Growth after 96 hours 01/23/22 17:41 Blood Culture - Preliminary Blood No Growth after 96 hours Assessment and Plan (1) Septic arthritis Narrative/Plan: She will continue with routine postop orthopedic protocol including pain management, wound care, DVT prophylaxis and medical management. She is scheduled for PICC placement today per nurse. Appreciate ID recommendations. Cultures and gram stain have been negative thus far. She is afebrile and last WBC was WNL. She may be discharged to home after PICC placement and if okay with IM/ID. Current Visit: Yes Status: Acute Code(s): M00.9 - PYOGENIC ARTHRITIS, UNSPECIFIED SNOMED Code(s): 387121542 Time with Patient: Less than 30
--- NOTE | 2022-01-28 15:42 | IR ---
EXAMINATION TYPE: IR cvc insert >=5 years DATE OF EXAM: 01/28/2022 COMPARISON: NONE CLINICAL HISTORY: Infection Needs long-term intravenous access for antibiotics. PROCEDURE: Hand hygiene obtained with soap and water and alcohol-based hand rub. After informed consent, the skin overlying the left basilic vein was localized with ultrasound and no alicia to be compressible and patent. An ultrasound image was obtained and submitted on the patient's c scott. The overlying skin was prepped and draped and Lidocaine was used for local anesthesia. A skin katrina was made with a scalpel. Access was gained to the vein under ultrasound guidance with a 21 gau ge needle and a 0.018 inch wire was advanced. Access site was dilated with Peel-Away sheath and cath eter tailored to the appropriate length and advanced such that the distal tip is at the cavoatrial ju nction. Spot image was obtained verifying placement. Catheter was fixed to the skin and a sterile d ressing was placed following hemostasis. Catheter was aspirated and flushed with saline. Patient wa s discharged in stable condition without complication.Maximal barrier technique is utilized. Ultraso und image is documented on the chart. Ultrasound used with sterile technique. Fluoro time and fluoroscopic images submitted to document procedure: 14 intraoperative C-arm images, 0.2 minutes fluoroscopy time IMPRESSION: STATUS POST ULTRASOUND AND FLUOROSCOPIC GUIDED PICC LINE PLACEMENT, READY FOR USE. THIS PROCEDURE WAS PERFORMED BY THE UNDERSIGNED.
[2022-01-28 15:53] LABS: Glucose,Whole Blood 148 mg/dL (70-110)
--- NOTE | 2022-01-28 17:43 | P.PN ---
Subjective Progress Note Date: 01/28/22 (Status post left Venita 01/28/2022.) Progress note date of service 01/28/[address] Wood. Patient seen and evaluated [id number]. Patient left upper arm PICC line placed and will be started on the antibiotic per infectious disease vancomycin Probably if she stable and arrangement made by the regional planner for a home continuing antibiotic as well as evidence of treatment probably 6 weeks for salvage the left knee total arthroplasty prosthesis. Patient conscious alert oriented no complain except of the pain in the left knee which is understandable with the underlying incision and drainage and she had left knee arthroplasty. Her temperature 97.8 F oral. Her pulse rate 67 regular sinus. Respiratory rate 20. Nonlabored. And her blood pressure 130/61 with a mean blood pressure 84 pulse ox 94% on room air. On the exam: Patient conscious alert oriented Head was normocephalic atraumatic. Normal eating and swallowing. Neck was supple no JVD no thyromegaly no lymphadenopathy trachea midline. Chest clear auscultation percussion with the underlying kyphoscoliosis and bilateral modified radical mastectomy due to cancer of the breast. The heart was regular sinus rhythm no dysrhythmia. Abdomen obese positive bowel sounds no tenderness in the four-quadrant. Extremities: Left knee incision and drainage with the total arthroplasty in the past. With the infected left knee Neurological: No lateralizing sign, no onset of seizure disorder and she had history of seizure but has been stable no breakthrough. Assessment: Hypertension stable normotensive with the current treatment. Seizure disorder stable no breakthrough seizures. Left total knee arthroplasty with the septic arthritis of the left knee status post incision and drainage by the orthopedic surgeon Dr. Diaz current attending. Status post PICC line placement the order infectious disease, she will be starting on antibiotic probably Vanco or Osler depend on selection of Dr. Oconnor infectious disease. All cultures reviewed as negative. Recommendation and plan: As mentioned above with the treatment for the left knee septic arthritis and salvage of the left knee prosthesis with the help of infectious disease. Depend on the plan for the attending physician orthopedic and infectious disease and plan for home antibiotic. Objective - Vital Signs Vital signs: Vital Signs Temp 97.8 F 01/28/22 13:54 Pulse 67 01/28/22 13:54 Resp 20 01/28/22 13:54 BP 130/61 01/28/22 13:54 Pulse Ox 94 L 01/28/22 13:54 FiO2 Intake & Output 01/27/22 01/28/22 01/28/22 18:59 06:59 18:59 Output Total 650 500 Balance -650 -500 Output: Urine 650 500 Other: Voiding Method Bedpan External Catheter External Catheter External Catheter # Voids 1 - Labs CBC & Chem 7: 01/27/22 09:17 01/28/22 06:31 Labs: Abnormal Lab Results - Last 24 Hours (Table) 01/27/22 01/28/22 01/28/22 Range/Units 22:11 07:11 10:56 POC Glucose (mg/dL) 204 H 203 H 254 H (70-110) mg/dL 01/28/22 Range/Units 15:51 POC Glucose (mg/dL) 148 H (70-110) mg/dL Microbiology - Last 24 Hours (Table) 01/24/22 15:19 Anaerobic Culture - Preliminary Knee - Left 01/23/22 17:42 Blood Culture - Preliminary Blood No Growth after 96 hours 01/23/22 17:41 Blood Culture - Preliminary Blood No Growth after 96 hours
[2022-01-28] MEDS: ATORVASTATIN 20 MG TAB PO SCH (20:20)
[2022-01-28] MEDS: amLODIPine 10 MG TAB PO SCH (20:20)
[2022-01-28 20:35] LABS: Glucose,Whole Blood 216 mg/dL (70-110)
[2022-01-29] MEDS: HYDROcodone/APAP 10-325MG 1 EACH TAB PO PRN ×2 (00:21→10:23)
[2022-01-29] MEDS: SODIUM CHLORIDE 0.9% 1,000 ML IV SCH ×2 (05:25→12:16)
[2022-01-29 07:02] LABS: Glucose,Whole Blood 191 mg/dL (70-110)
[2022-01-29] MEDS: levETIRAcetam 500 MG TAB PO SCH (07:40)
[2022-01-29] MEDS: PARoxetine 10 MG TAB PO SCH (07:40)
[2022-01-29] MEDS: hydrALAZINE HCL 50 MG TAB PO SCH (07:40)
[2022-01-29] MEDS: MAGNESIUM HYDROXIDE 2,400 MG/10 ML CUP PO SCH (07:41)
[2022-01-29] MEDS: VANCOMYCIN 1,250 MG in SODIUM CHLORIDE 0.9% 250 ML IVPB SCH (07:41)
[2022-01-29] MEDS: ASPIRIN 81 MG PO SCH (07:41)
[2022-01-29] MEDS: lisinopriL 20 MG TAB PO SCH (07:41)
[2022-01-29] MEDS: cloNIDine HCL 0.2 MG TAB PO SCH (07:41)
[2022-01-29] MEDS: glipiZIDE 5 MG TAB PO SCH (07:41)
[2022-01-29] MEDS: hydroCHLOROthiazide 25 MG TAB PO SCH (07:41)
[2022-01-29] MEDS: SENNOSIDES-DOCUSATE SODIUM 1 EACH TAB PO SCH (07:43)
[2022-01-29] MEDS: INSULIN ASPART (NovoLOG) 100 UNIT/ML VIAL SQ SCH ×2 (07:43→12:16)
[2022-01-29] MEDS: METOPROLOL TARTRATE 50 MG TAB PO SCH (07:43)
[2022-01-29 07:57] VITALS: BP 154/77; PULSE 71; RESP 18; TEMP 98.4
--- NOTE | 2022-01-29 08:01 | P.PN ---
Subjective Progress Note Date: 01/28/22 Principal diagnosis: Left knee septic arthritis Patient is a 67-year-old female with recent left knee replacement on 10/10/2021 presented to hospital with acute left knee pain, and this patient with the significantly elevated white count in the left knee aspirate concerning for septic arthritis status post excisional arthroplasty and antibiotic spacer placement. On today's evaluation that is 01/28/2022, the patient remains to be afebrile, patient is breathing comfortably on room air, the patient still complaining of pain to the left knee area however slightly decreased in intensity, patient denies having any chest pain shortness of breath or cough no abdominal pain or diarrhea Objective - Vital Signs Vital signs: Vital Signs Temp 97.6 F 01/28/22 07:18 Pulse 61 01/28/22 07:18 Resp 22 01/28/22 07:18 BP 151/70 01/28/22 07:18 Pulse Ox 91 L 01/28/22 07:18 FiO2 Intake & Output 01/27/22 01/28/22 01/28/22 18:59 06:59 18:59 Output Total 650 500 Balance -650 -500 Output: Urine 650 500 Other: Voiding Method Bedpan External Catheter External Catheter External Catheter # Voids 1 - Exam GENERAL DESCRIPTION: An elderly female lying in bed in no distress RESPIRATORY SYSTEM: Unlabored breathing , decreased breath sounds at bases HEART: S1 S2 regular rate and rhythm , ABDOMEN: Soft , no tenderness EXTREMITIES: Left knee swelling or significant redness or drainage - Labs CBC & Chem 7: 01/27/22 09:17 01/28/22 06:31 Labs: Abnormal Lab Results - Last 24 Hours (Table) 01/27/22 01/27/22 01/27/22 Range/Units 09:17 11:37 16:47 RBC 3.97 L (4.10-5.20) X 10*6/uL Hgb 10.9 L (12.0-15.0) g/dL Hct 34.3 L (37.2-46.3) % MCHC 31.8 L (32.0-37.0) g/dL POC Glucose (mg/dL) 205 H 180 H (70-110) mg/dL 01/27/22 01/28/22 01/28/22 Range/Units 22:11 07:11 10:56 RBC (4.10-5.20) X 10*6/uL Hgb (12.0-15.0) g/dL Hct (37.2-46.3) % MCHC (32.0-37.0) g/dL POC Glucose (mg/dL) 204 H 203 H 254 H (70-110) mg/dL Microbiology - Last 24 Hours (Table) 01/24/22 15:19 Anaerobic Culture - Preliminary Knee - Left 01/23/22 17:42 Blood Culture - Preliminary Blood No Growth after 96 hours 01/23/22 17:41 Blood Culture - Preliminary Blood No Growth after 96 hours Assessment and Plan (1) Septic arthritis Current Visit: Yes Status: Acute Code(s): M00.9 - PYOGENIC ARTHRITIS, UNSPECIFIED SNOMED Code(s): 882723711 Plan: 1patient presented to hospital with acute left knee pain in this patient has been diagnosed with a left knee septic arthritis patient is status post left open irrigation and debridement along with a left knee tibial polyethylene exchange, the cultures currently pending more likely from gram-positive skin scott. 2blood cultures has been negative, left knee cultures currently pending 3patient to continue with vancomycin pharmacy to dose target trough of 15, unfortunately patient has not been getting her medication because of no IV access and get a PICC line today, for the discharge antibiotic on the basis of final cultures Time with Patient: Less than 30
--- NOTE | 2022-01-29 08:10 | CDI ---
Documentation Clarification Form Date: 01/29/2022 07:52:44 AM From: Dulce Negron CCS, CCDS Admit Date: 01/23/2022 05:11:00 PM Patient Name: Shelli Harden Visit Number: [id number] Discharge Date: ATTENTION: The Clinical Documentation Specialists (CDI) and [facility] Coding Staff appreciate your assistance in clarifying documentation. Please respond to the clarification below the line at the bottom and electronically sign. The CDI & [facility] Coding staff will review the response and follow-up if needed. Please note: Queries are made part of the Legal Health Record. If you have any questions, please contact the author of this message via ITS. Dr. Flynn Siegel: History of Chronic Anemia is documented in the 01/24 Medical Management Consult without further specificity. The patient's Hemoglobin was 11.1, 11.8 & 10.9 postoperatively, status post I&D and removal of Left Total Knee Arthroplasty. Please clarify if there is an additional diagnosis and/or clinical significance related to these lab values. History/Risk Factors per the 01/24 H/P: Left TKA 10/11/2021, Colonoscopy 01/22/2022. Bilateral Breast, Colon, Ovarian & Uterine Cancer, CVA/TIA, DM, GERD, Hyperlipidemia, Hypertension, OA, Pneumonia, Seizure disorder Clinical indicators: Presented to the ED on 01/23 with Left Knee Pain, Warmth, seen in the ED night prior & diagnosed with knee strain. Saw orthopedic surgeon today, had knee aspiration to left knee with suspicion for an infection, sent to the ED for admission. Admit for IV antibiotics & possible surgical intervention, Septic arthritis. LAB: 01/24 Hgb: 11.1, 01/25: 11.8. 01/27: 10.9. 01/24 Hct: 33.9. 01/25: 36.8. 01/27: 34.3 01/24 Procedure Diagnosis: Left Knee Septic Arthtitis 01/24 Procedure: Left Open Irrigation & Debridement, Left Knee Tibial Polyethylene exchange, Total knee Arthroplasty. Est Blood loss: 20 mL Treatment 01/23: Blood cultures, IV Vancomycin 250 mls @ 125 mls/hr x1, IV Morphine 4 mg x1 - 4 mg q4H/prn. 01/24: IV Vanco, IV Lactated Ringers, IV Decadron 4 mg x1, IV Zofran 4 mg x1, IV Cefazolin as directed. Is there an additional diagnosis and/or clinical significance related to the above lab result/information: [ ] Acute blood loss anemia [ ] Acute on chronic blood loss anemia [ ] Chronic blood loss anemia [ ] Hemolytic anemia [ ] Drug induced anemia [ x ] Anemia of chronic disease [ ] Unable to determine [ ] Other, please specify (Template Last Revised: September 2020) Anemia of chronic disease MTDD
--- NOTE | 2022-01-29 10:17 | P.DS ---
Providers Date of admission: 01/23/22 17:11 Expected date of discharge: 01/29/22 Attending physician: Adrián Diaz Consults: 01/23/22 15:13 Consult Physician Urgent Consulting Provider: Flynn Siegel Consult Reason/Comments: pre surgical clearance and medical eliazar. Do you want consulting provider notified?: Yes 01/24/22 12:41 Consult Physician Urgent Consulting Provider: Kenneth Oconnor Consult Reason/Comments: septic knee s/p total knee arthroplasty Do you want consulting provider notified?: Yes Primary care physician: Flynn Siegel - Discharge Diagnosis(es) (1) Septic arthritis Patient was admitted to the OR on 01/24/22 to undergo I and D with poly exchange of left total knee. She has possible suspected septic knee s/p left total knee arthroplasty. She had failed conservative measures as an outpatient and desired to proceed with elective surgery after given informed consent. She underwent the above procedure which she tolerated well without complication. Postoperative hospital course has remained without complication. A PICC line has been placed and she will be on long-term antibiotics. On day of discharge she is afebrile, vital signs stable, labs within acceptable ranges, tolerating by mouth meds and diet, voiding without difficulty, positive flatus, denies abdominal pain or calf pain, pain is controlled on oral pain medication and has no new complaints. Wound is benign, neurovascular status is intact, calves are soft and nontender, abdomen soft and nontender. Review of systems is negative for numbness, tingling, fever, chills, chest pain, shortness of breath, nausea, vomiting, dizziness, headaches, slurred speech or other. Current Visit: Yes Status: Acute Priority: Medium Procedures: I and D left TKA, PICC line Patient Condition at Discharge: Serious Plan - Discharge Summary New Discharge Prescriptions: New Docusate [Colace] 100 mg PO BID #60 capsule Aspirin [Adult Low Dose Aspirin EC] 81 mg PO BID #60 tab HYDROcodone/APAP 10-325MG [[place] 10-325] 1 tab PO Q4HR PRN #42 tab PRN Reason: Pain No Action levETIRAcetam [Keppra] 1,000 mg PO BID Atorvastatin [Lipitor] 20 mg PO HS Metoprolol Tartrate [Lopressor] 50 mg PO BID hydrALAZINE HCL [Apresoline] 100 mg PO TID Enalapril [Vasotec] 20 mg PO BID amLODIPine [Norvasc] 10 mg PO HS cloNIDine HCL [Catapres] 0.2 mg PO BID carBAMazepine [carBAMazepine ER] 600 mg PO BID Aspirin [Adult Low Dose Aspirin EC] 81 mg PO DAILY glipiZIDE [Glucotrol] 5 mg PO AC-BID tab PARoxetine [Paxil] 10 mg PO DAILY hydroCHLOROthiazide 25 mg PO DAILY Discharge Medication List levETIRAcetam [Keppra] 1,000 mg PO BID 12/16/13 [History] Atorvastatin [Lipitor] 20 mg PO HS 04/21/14 [History] Enalapril [Vasotec] 20 mg PO BID 06/07/21 [History] Metoprolol Tartrate [Lopressor] 50 mg PO BID 06/07/21 [History] amLODIPine [Norvasc] 10 mg PO HS 06/07/21 [History] hydrALAZINE HCL [Apresoline] 100 mg PO TID 06/07/21 [History] cloNIDine HCL [Catapres] 0.2 mg PO BID 10/08/21 [History] carBAMazepine [carBAMazepine ER] 600 mg PO BID 11/13/21 [History] Aspirin [Adult Low Dose Aspirin EC] 81 mg PO DAILY 12/13/21 [History] glipiZIDE [Glucotrol] 5 mg PO AC-BID tab 12/17/21 [Rx] PARoxetine [Paxil] 10 mg PO DAILY 01/18/22 [History] hydroCHLOROthiazide 25 mg PO DAILY 01/18/22 [History] Aspirin [Adult Low Dose Aspirin EC] 81 mg PO BID #60 tab 01/28/22 [Rx] Docusate [Colace] 100 mg PO BID #60 capsule 01/28/22 [Rx] HYDROcodone/APAP 10-325MG [[place] 10-325] 1 tab PO Q4HR PRN #42 tab 01/28/22 [Rx] Follow up Appointment(s)/Referral(s): [facility], [NON-STAFF] - 1 Week [facility],Infusion [NON-STAFF] - 1 Week Adrián Diaz MD [STAFF PHYSICIAN] - 1 Week Flynn Siegel MD [Primary Care Provider] - 1-2 days Activity/Diet/Wound Care/Special Instructions: WBAT take meds as directed f/u in office keep wound clean and dry Discharge Disposition: HOME WITH HOME HEALTH SERVICES
[2022-01-29] MEDS: carBAMazepine 300 MG CPMP.12HR PO SCH (10:31)
[2022-01-29 10:47] LABS: Basophils # (A) 0.04 X 10*3/uL (0.00-0.10); Basophils % (A) 0.6 %; Eosinophils # (A) 0.39 X 10*3/uL (0.04-0.35); Eosinophils % (A) 5.5 %; HGB 11.4 g/dL (12.0-15.0); Immature Grans, Automated 0.3 %; Lymphocytes # (A) 2.26 X 10*3/uL (0.90-5.00); Lymphocytes % (A) 32.1 %; MCH 27.6 pg (27.0-32.0); MCHC 31.7 g/dL (32.0-37.0); MCV 87.2 fL (80.0-97.0); Mean Platelet Volume 9.2 fL (9.5-12.2); Monocytes # (A) 0.59 X 10*3/uL (0.20-1.00); Monocytes % (A) 8.4 %; NRBC Per 100 WBC 0 /100 WBCS (0.0-0.0); Neutrophils # (A) 3.74 X 10*3/uL (1.80-7.70); Neutrophils % (A) 53.1 %; Platelet Count 403 X 10*3/uL (140-440); RBC 4.13 X 10*6/uL (4.10-5.20); RDW 13.3 % (11.5-14.5); WBC 7.04 X 10*3/uL (4.50-10.00)
[2022-01-29 11:09] LABS: African American GFR (CKD) 102.5 (60.0-200.0); Anion Gap 13.4 mmol/L (10.00-18.00); BUN/Creat Ratio 21.71 Ratio (12.00-20.00); Blood Urea Nitrogen 15.2 mg/dL (9.0-27.0); C Reactive Protein 3.5 mg/dL (0.00-0.80); Calcium 9.3 mg/dL (8.7-10.3); Carbon Dioxide 29.6 mmol/L (20.0-27.5); Non-African American GFR(CKD) 88.4 (60.0-200.0); Potassium 3.9 mmol/L (3.5-5.5)
[2022-01-29] MEDS: MULTIVITAMINS, THERA 1 EACH TAB PO SCH (12:16)
[2022-01-29 14:26] LABS: Erythrocyte Sedimentation Rate 68 mm/Hr (0-30)
== END 2022-01-29 14:29 | disposition home health service (06) | DRG 486 ==
LOC: OR 14:27 → 4SSUR 17:11
PROVIDERS: ADMIT Orthopaedic Surgery Sports Medicine; ATTEND Orthopaedic Surgery Sports Medicine
PROC: 0SUW09Z Supplement Left Knee Joint, Tibial Surface with Liner, Open Approach (ICD-10-PCS; 2022-01-24)
PROC: 0JDP0ZZ Extraction of Left Lower Leg Subcutaneous Tissue and Fascia, Open Approach (ICD-10-PCS; 2022-01-24)
PROC: 3E1U38X Irrigation of Joints using Irrigating Substance, Percutaneous Approach, Diagnostic (ICD-10-PCS; 2022-01-24)
PROC: 3E0U029 Introduction of Other Anti-infective into Joints, Open Approach (ICD-10-PCS; 2022-01-24)
PROC: 0SPD09Z Removal of Liner from Left Knee Joint, Open Approach (ICD-10-PCS; principal; 2022-01-24 09:00)
PROC: 02HV33Z Insertion of Infusion Device into Superior Vena Cava, Percutaneous Approach (ICD-10-PCS; 2022-01-28)
PROC: B5181ZA Fluoroscopy of Superior Vena Cava using Low Osmolar Contrast, Guidance (ICD-10-PCS; 2022-01-28)
PROC: B548ZZA Ultrasonography of Superior Vena Cava, Guidance (ICD-10-PCS; 2022-01-28)
DX: T84.54XA Infection and inflammatory reaction due to internal left knee prosthesis, initial encounter (principal); M00.9 Pyogenic arthritis, unspecified; G40.909 Epilepsy, unspecified, not intractable, without status epilepticus; E11.9 Type 2 diabetes mellitus without complications; E55.9 Vitamin D deficiency, unspecified; E78.5 Hyperlipidemia, unspecified; S86.912A Strain of unspecified muscle(s) and tendon(s) at lower leg level, left leg, initial encounter; F32.A Depression, unspecified; D63.8 Anemia in other chronic diseases classified elsewhere; G47.00 Insomnia, unspecified; H81.09 Meniere's disease, unspecified ear; M19.90 Unspecified osteoarthritis, unspecified site; K21.9 Gastro-esophageal reflux disease without esophagitis; F41.9 Anxiety disorder, unspecified; G89.29 Other chronic pain; H02.60 Xanthelasma of unspecified eye, unspecified eyelid; I11.0 Hypertensive heart disease with heart failure; M41.9 Scoliosis, unspecified; Z79.82 Long term (current) use of aspirin; Z79.84 Long term (current) use of oral hypoglycemic drugs; Z79.899 Other long term (current) drug therapy; Z80.9 Family history of malignant neoplasm, unspecified; Z85.3 Personal history of malignant neoplasm of breast; Z85.42 Personal history of malignant neoplasm of other parts of uterus; Z86.73 Personal history of transient ischemic attack (TIA), and cerebral infarction without residual deficits; Z87.828 Personal history of other (healed) physical injury and trauma; Z90.13 Acquired absence of bilateral breasts and nipples; Z90.710 Acquired absence of both cervix and uterus; Z90.49 Acquired absence of other specified parts of digestive tract; Z98.42 Cataract extraction status, left eye; Z98.41 Cataract extraction status, right eye; Z96.652 Presence of left artificial knee joint; Z98.891 History of uterine scar from previous surgery; Z88.8 Allergy status to other drugs, medicaments and biological substances; Z91.018 Allergy to other foods; Z86.79 Personal history of other diseases of the circulatory system; Z85.038 Personal history of other malignant neoplasm of large intestine; Z87.01 Personal history of pneumonia (recurrent); Z87.19 Personal history of other diseases of the digestive system; Y84.8 Other medical procedures as the cause of abnormal reaction of the patient, or of later complication, without mention of misadventure at the time of the procedure
CPT/HCPCS: 36573; 80048; 80053; 80202; 81001; 82565; 84145; 85025; 85610; 85652; 85730; 86140; 87040; 87070; 87075; 87205; 88305; 89050; 89060; 93005; 96374; 99284

== ENCOUNTER 2022-05-30 07:28 | Emergency (ER) | payer MEDICARE, BC ==
--- NOTE | 2022-05-30 07:55 | ED ---
General Adult HPI - General Chief complaint: Headache Stated complaint: Headache and cough Time Seen by Provider: 05/30/22 07:36 Source: patient, RN notes reviewed Mode of arrival: ambulatory Limitations: no limitations - History of Present Illness Initial comments: This a 67-year-old female presents emergency Department chief complaint of cough and cold like symptoms. Patient states she has been sick last few days. She states her son has similar symptoms. Patient went of headache, sinus congestion, pressure. Patient does have a cough which is minimally productive patient felt short of breath with states she does not feel short of breath currently. Denies any chest pain no GI symptoms. Patient has no prior lung disease she does but that she has been vaccine for influenza and COVID-19. - Related Data Home Medications Medication Instructions Recorded Confirmed levETIRAcetam [Keppra] 1,000 mg PO BID 12/16/13 01/23/22 Atorvastatin [Lipitor] 20 mg PO HS 04/21/14 01/23/22 Enalapril [Vasotec] 20 mg PO BID 06/07/21 01/23/22 Metoprolol Tartrate [Lopressor] 50 mg PO BID 06/07/21 01/23/22 amLODIPine [Norvasc] 10 mg PO HS 06/07/21 01/23/22 hydrALAZINE HCL [Apresoline] 100 mg PO TID 06/07/21 01/23/22 cloNIDine HCL [Catapres] 0.2 mg PO BID 10/08/21 01/23/22 carBAMazepine [carBAMazepine ER] 600 mg PO BID 11/13/21 01/23/22 Aspirin [Adult Low Dose Aspirin EC] 81 mg PO DAILY 12/13/21 01/23/22 PARoxetine [Paxil] 10 mg PO DAILY 01/18/22 01/23/22 hydroCHLOROthiazide 25 mg PO DAILY 01/18/22 01/23/22 Previous Rx's Medication Instructions Recorded glipiZIDE [Glucotrol] 5 mg PO AC-BID tab 12/17/21 Aspirin [Adult Low Dose Aspirin EC] 81 mg PO BID #60 tab 01/28/22 Docusate [Colace] 100 mg PO BID #60 capsule 01/28/22 HYDROcodone/APAP 10-325MG [[place] 1 tab PO Q4HR PRN #42 tab 01/28/22 10-325] cefTRIAXone [Rocephin] 2 gm IVPB Q24H #42 each 01/29/22 Allergies Allergy/AdvReac Type Severity Reaction Status Date / Time chlorhexidine Allergy Itching Verified 01/24/22 13:13 Mushroom Allergy Itching Verified 01/24/22 13:13 Review of Systems ROS Statement: Those systems with pertinent positive or pertinent negative responses have been documented in the HPI. ROS Other: All systems not noted in ROS Statement are negative. Past Medical History Past Medical History: Cancer, CVA/TIA, Diabetes Mellitus, GERD/Reflux, Hyperlipidemia, Hypertension, Osteoarthritis (OA), Pneumonia, Seizure Disorder Additional Past Medical History / Comment(s): breast/colon/ovarian,uterine CA, no bp in rt arm. told she had a stroke 03/2014 "blood clot in back of head". hx of head injury 3rd grade, pt states she has "slow thinking process"and seizures started after injury. -last seizure POSSIBLE FEBRUARY 2021 , hx back pain, brain aneurysm 2007, menieres disease History of Any Multi-Drug Resistant Organisms: None Reported Past Surgical History: Adenoidectomy, Appendectomy, Bladder Surgery, Bowel Resection, Breast Surgery, Section, Cholecystectomy, Hernia Repair, Hysterectomy, Joint Replacement, Tonsillectomy Additional Past Surgical History / Comment(s): manpreet. mastectomy , manpreet BREAST BX, MANPREET CATARACT SX, BLADDER SUSPENSION, bowel resection x2 d/t ca, left total knee repl. Past Anesthesia/Blood Transfusion Reactions: Postoperative Nausea & Vomiting (PONV) Past Psychological History: Anxiety, Depression Smoking Status: Never smoker Past Alcohol Use History: None Reported Past Drug Use History: None Reported - Past Family History Mother Family Medical History: Cancer Father Family Medical History: Cancer General Exam Limitations: no limitations General appearance: alert, in no apparent distress Head exam: Present: atraumatic, normocephalic, normal inspection Eye exam: Present: normal appearance, PERRL, EOMI. Absent: scleral icterus, conjunctival injection, periorbital swelling ENT exam: Present: normal exam, normal oropharynx, mucous membranes moist Neck exam: Present: normal inspection, full ROM. Absent: tenderness, meningismus, lymphadenopathy Respiratory exam: Present: normal lung sounds bilaterally. Absent: respiratory distress, wheezes, rales, rhonchi, stridor Cardiovascular Exam: Present: regular rate, normal rhythm, normal heart sounds. Absent: systolic murmur, diastolic murmur, rubs, gallop, clicks Neurological exam: Present: alert Skin exam: Present: warm, dry, intact, normal color. Absent: rash Course Vital Signs 05/30/22 05/30/22 07:40 09:10 Temperature 99.1 F 99.4 F Pulse Rate 76 69 Respiratory 20 18 Rate Blood Pressure 149/58 124/61 O2 Sat by Pulse 98 97 Oximetry Medical Decision Making - Medical Decision Making 67-year-old female presents emergency Department for cough and cold symptoms patient's COVID-19 positive vitals are stable patient has no signs of distress will be discharged stable condition return parameters were discussed. - Lab Data Lab Results 05/30/22 05/30/22 Range/Units 07:54 08:01 Coronavirus (PCR) Detected A (Not Detectd) Influenza Type A RNA Not Detected (Not Detectd) Influenza Type B (PCR) Not Detected (Not Detectd) Disposition Clinical Impression: COVID-19 Disposition: HOME SELF-CARE Condition: Stable Instructions (If sedation given, give patient instructions): COVID-19 (Coronavirus Disease 2019) (ED) Additional Instructions: Please return to the Emergency Department if symptoms worsen or any other concerns. Is patient prescribed a controlled substance at d/c from ED?: No Referrals: Flynn Siegel MD [Primary Care Provider] - 1-2 days Time of Disposition: 09:37
--- NOTE | 2022-05-30 08:24 | XR ---
EXAMINATION TYPE: XR chest 2V DATE OF EXAM: 05/30/2022 COMPARISON: Chest x-ray December 13, 2021 HISTORY: Cough. TECHNIQUE: Frontal and lateral views of the chest are obtained. FINDINGS: There is no suspicious focal air space opacity, pleural effusion, or pneumothorax seen. T he cardiac silhouette size is stable and mildly enlarged. The osseous structures are intact. Right axillary surgical clips are redemonstrated. IMPRESSION: Mild cardiomegaly without acute pulmonary process. No significant change from prior.
[2022-05-30] MEDS ORDERED: ACETAMINOPHEN TAB 500 MG TAB PO STA (09:06)
[2022-05-30] MEDS ORDERED: IBUPROFEN 600 MG TAB PO STA (09:06)
[2022-05-30 09:21] VITALS: RESP 18
[2022-05-30 10:15] VITALS: BP 122/65; PULSE 63; TEMP 98.6
== END 2022-05-30 10:04 | disposition home or self-care (01) ==
LOC: EC 07:28
DX: U07.1 COVID-19 (principal); Z86.73 Personal history of transient ischemic attack (TIA), and cerebral infarction without residual deficits; E11.9 Type 2 diabetes mellitus without complications; K21.9 Gastro-esophageal reflux disease without esophagitis; E78.5 Hyperlipidemia, unspecified; I10 Essential (primary) hypertension; M19.90 Unspecified osteoarthritis, unspecified site; F41.9 Anxiety disorder, unspecified; F32.A Depression, unspecified; Z88.2 Allergy status to sulfonamides; Z91.018 Allergy to other foods; Z79.82 Long term (current) use of aspirin; Z79.899 Other long term (current) drug therapy
CPT/HCPCS: 71046; 87502; 87635; 99284

== ENCOUNTER 2022-06-01 14:52 | Emergency (ER) | payer MEDICARE, BC ==
[2022-06-01 15:04] VITALS: TEMP 98
[2022-06-01] MEDS ORDERED: SODIUM CHLORIDE 0.9% 2,000 ML IV STA (15:43)
[2022-06-01] MEDS ORDERED: ONDANSETRON 4 MG/2 ML VIAL IVP STA (15:43)
--- NOTE | 2022-06-01 16:12 | ED ---
Nausea/Vomiting/Diarrhea HPI - General Chief complaint: Nausea/Vomiting/Diarrhea Stated complaint: COVID+,vomiting,diarrhea Time Seen by Provider: 06/01/22 15:34 Source: patient Mode of arrival: ambulatory Limitations: no limitations - History of Present Illness Initial comments: Patient is a 67-year-old female presenting with chief complaint of nausea and vomiting. Patient tested positive for Covid 2 days ago. Patient states since testing positive she has been feeling worse. She has developed increasing nausea and vomiting, as well as diarrhea. She admits to coughing congestion. She admits to mild shortness of breath. She denies chest pain. No abdominal pain. Admits to intermittent fever and chills. No palpitations, numbness, tingling, neck pain or stiffness, hematochezia, melena, hematuria, dysuria. - Related Data Home Medications Medication Instructions Recorded Confirmed levETIRAcetam [Keppra] 1,000 mg PO BID 12/16/13 01/23/22 Atorvastatin [Lipitor] 20 mg PO HS 04/21/14 01/23/22 Enalapril [Vasotec] 20 mg PO BID 06/07/21 01/23/22 Metoprolol Tartrate [Lopressor] 50 mg PO BID 06/07/21 01/23/22 amLODIPine [Norvasc] 10 mg PO HS 06/07/21 01/23/22 hydrALAZINE HCL [Apresoline] 100 mg PO TID 06/07/21 01/23/22 cloNIDine HCL [Catapres] 0.2 mg PO BID 10/08/21 01/23/22 carBAMazepine [carBAMazepine ER] 600 mg PO BID 11/13/21 01/23/22 Aspirin [Adult Low Dose Aspirin EC] 81 mg PO DAILY 12/13/21 01/23/22 PARoxetine [Paxil] 10 mg PO DAILY 01/18/22 01/23/22 hydroCHLOROthiazide 25 mg PO DAILY 01/18/22 01/23/22 Previous Rx's Medication Instructions Recorded glipiZIDE [Glucotrol] 5 mg PO AC-BID tab 12/17/21 Aspirin [Adult Low Dose Aspirin EC] 81 mg PO BID #60 tab 01/28/22 Docusate [Colace] 100 mg PO BID #60 capsule 01/28/22 HYDROcodone/APAP 10-325MG [[place] 1 tab PO Q4HR PRN #42 tab 01/28/22 10-325] cefTRIAXone [Rocephin] 2 gm IVPB Q24H #42 each 01/29/22 Albuterol Inhaler [Ventolin Hfa 1 - 2 puff INHALATION Q6H PRN #1 06/01/22 Inhaler] unit Ondansetron Odt [Zofran Odt] 4 mg PO Q8HR PRN #20 tab 06/01/22 Allergies Allergy/AdvReac Type Severity Reaction Status Date / Time chlorhexidine Allergy Itching Verified 06/01/22 15:04 Mushroom Allergy Itching Verified 06/01/22 15:04 Review of Systems ROS Statement: Those systems with pertinent positive or pertinent negative responses have been documented in the HPI. ROS Other: All systems not noted in ROS Statement are negative. Past Medical History Past Medical History: Cancer, CVA/TIA, Diabetes Mellitus, GERD/Reflux, Hyperl ipidemia, Hypertension, Osteoarthritis (OA), Pneumonia, Seizure Disorder Additional Past Medical History / Comment(s): breast/colon/ovarian,uterine CA, no bp in rt arm. told she had a stroke 03/2014 "blood clot in back of head". hx of head injury 3rd grade, pt states she has "slow thinking process"and seizures started after injury. -last seizure POSSIBLE FEBRUARY 2021 , hx back pain, brain aneurysm 2007, menieres disease History of Any Multi-Drug Resistant Organisms: None Reported Past Surgical History: Adenoidectomy, Appendectomy, Bladder Surgery, Bowel Resection, Breast Surgery, Section, Cholecystectomy, Hernia Repair, Hysterectomy, Joint Replacement, Tonsillectomy Additional Past Surgical History / Comment(s): manpreet. mastectomy , manpreet BREAST BX, MANPREET CATARACT SX, BLADDER SUSPENSION, bowel resection x2 d/t ca, left total knee repl. Past Anesthesia/Blood Transfusion Reactions: Postoperative Nausea & Vomiting (PONV) Past Psychological History: Anxiety, Depression Smoking Status: Never smoker Past Alcohol Use History: None Reported Past Drug Use History: None Reported - Past Family History Mother Family Medical History: Cancer Father Family Medical History: Cancer General Exam Limitations: no limitations General appearance: alert, in no apparent distress Head exam: Present: atraumatic, normocephalic, normal inspection Eye exam: Present: normal appearance, PERRL, EOMI. Absent: scleral icterus, conjunctival injection, periorbital swelling Neck exam: Present: normal inspection, full ROM Respiratory exam: Present: normal lung sounds bilaterally. Absent: respiratory distress, wheezes, rales, rhonchi, stridor Cardiovascular Exam: Present: regular rate, normal rhythm, normal heart sounds. Absent: systolic murmur, diastolic murmur, rubs, gallop, clicks GI/Abdominal exam: Present: soft. Absent: distended, tenderness, guarding, rebound, rigid Neurological exam: Present: alert, oriented X3, CN II-XII intact Psychiatric exam: Present: normal affect, normal mood Skin exam: Present: warm, dry, intact, normal color. Absent: rash Course Vital Signs 06/01/22 15:01 Temperature 98 F Pulse Rate 74 Respiratory 20 Rate Blood Pressure 124/74 O2 Sat by Pulse 97 Oximetry Medical Decision Making - Medical Decision Making Patient is a 67-year-old female presenting with chief complaint of nausea, vomiting, diarrhea. Patient is currently Covid positive. She also admits to cough, congestion, and fatigue. On physical examination heart and lungs are clear to auscultation, abdomen is soft, no point tenderness, nondistended. Lab work shows no leukocytosis or anemia. Sodium 136, she is receiving IV fluids. Electrolytes are WNL. Troponin is negative. EKG shows sinus rhythm with no ischemic changes. Lactic acid is 0.9. KUB x-ray and chest x-ray shows no acute process. Amylase and lipase are WNL. Patient reports improvement in symptoms after Zofran and fluids. Patient will be discharged with prescription for Zofran as well as albuterol inhaler for coughing fits. Educated on supportive treatment and quarantine guidelines. Follow-up with PCP. Report back to ER with any new or worsening symptoms. Discussed return parameters and answered all questions. Patient conveyed verbal understanding and agreed to the plan. I discussed this case in detail with my attending Dr. Roman - Lab Data Result diagrams: 06/01/22 16:06 06/01/22 16:06 Lab Results 06/01/22 06/01/22 06/01/22 Range/Units 16:06 16:06 16:06 WBC 4.8 (3.8-10.6) k/uL RBC 4.43 (3.80-5.40) m/uL Hgb 13.3 (11.4-16.0) gm/dL Hct 38.1 (34.0-46.0) % MCV 86.0 (80.0-100.0) fL MCH 30.1 (25.0-35.0) pg MCHC 35.0 (31.0-37.0) g/dL RDW 13.6 (11.5-15.5) % Plt Count 238 (150-450) k/uL MPV 8.3 Neutrophils % 56 % Lymphocytes % 32 % Monocytes % 7 % Eosinophils % 0 % Basophils % 1 % Neutrophils # 2.7 (1.3-7.7) k/uL Lymphocytes # 1.6 (1.0-4.8) k/uL Monocytes # 0.4 (0-1.0) k/uL Eosinophils # 0.0 (0-0.7) k/uL Basophils # 0.1 (0-0.2) k/uL Sodium 136 L (137-145) mmol/L Potassium 3.5 (3.5-5.1) mmol/L Chloride 101 (98-107) mmol/L Carbon Dioxide 22 (22-30) mmol/L Anion Gap 13 mmol/L BUN 7 (7-17) mg/dL Creatinine 0.52 (0.52-1.04) mg/dL Est GFR (CKD-EPI)AfAm >90 (>60 ml/min/1.73 sqM) Est GFR (CKD-EPI)NonAf >90 (>60 ml/min/1.73 sqM) Glucose 131 H (74-99) mg/dL Plasma Lactic Acid Miles 0.9 (0.7-2.0) mmol/L Calcium 8.1 L (8.4-10.2) mg/dL Total Bilirubin 0.5 (0.2-1.3) mg/dL AST 25 (14-36) U/L ALT 22 (4-34) U/L Alkaline Phosphatase 131 H (38-126) U/L Troponin I (0.000-0.034) ng/mL Total Protein 6.5 (6.3-8.2) g/dL Albumin 4.1 (3.5-5.0) g/dL Amylase 50 (30-110) U/L Lipase 76 (23-300) U/L 10/22/22 Range/Units 16:06 WBC (3.8-10.6) k/uL RBC (3.80-5.40) m/uL Hgb (11.4-16.0) gm/dL Hct (34.0-46.0) % MCV (80.0-100.0) fL MCH (25.0-35.0) pg MCHC (31.0-37.0) g/dL RDW (11.5-15.5) % Plt Count (150-450) k/uL MPV Neutrophils % % Lymphocytes % % Monocytes % % Eosinophils % % Basophils % % Neutrophils # (1.3-7.7) k/uL Lymphocytes # (1.0-4.8) k/uL Monocytes # (0-1.0) k/uL Eosinophils # (0-0.7) k/uL Basophils # (0-0.2) k/uL Sodium (137-145) mmol/L Potassium (3.5-5.1) mmol/L Chloride (98-107) mmol/L Carbon Dioxide (22-30) mmol/L Anion Gap mmol/L BUN (7-17) mg/dL Creatinine (0.52-1.04) mg/dL Est GFR (CKD-EPI)AfAm (>60 ml/min/1.73 sqM) Est GFR (CKD-EPI)NonAf (>60 ml/min/1.73 sqM) Glucose (74-99) mg/dL Plasma Lactic Acid Miles (0.7-2.0) mmol/L Calcium (8.4-10.2) mg/dL Total Bilirubin (0.2-1.3) mg/dL AST (14-36) U/L ALT (4-34) U/L Alkaline Phosphatase (38-126) U/L Troponin I <0.012 (0.000-0.034) ng/mL Total Protein (6.3-8.2) g/dL Albumin (3.5-5.0) g/dL Amylase (30-110) U/L Lipase (23-300) U/L - EKG Data EKG Comments: Sinus rhythm rate of 64. W[place] interval 173. QRS duration 86. QT/QTc 407/417. No ST deviation. Disposition Clinical Impression: Nausea & vomiting, COVID Disposition: HOME SELF-CARE Condition: Good Instructions (If sedation given, give patient instructions): Acute Nausea and Vomiting (ED), COVID-19 (Coronavirus Disease 2019) (ED) Additional Instructions: Follow-up with PCP. Report back to ER with any new or worsening symptoms. Take medication as prescribed. Quarantine for 5 days starting from the first if symptoms, this is then followed by 5 days of strict mask usage at all times while in public. You must be fever and symptom free for 24 hours before ending your quarantine. Prescriptions: Albuterol Inhaler [Ventolin Hfa Inhaler] 1 - 2 puff INHALATION Q6H PRN #1 unit PRN Reason: Shortness Of Breath Ondansetron Odt [Zofran Odt] 4 mg PO Q8HR PRN #20 tab PRN Reason: Nausea Is patient prescribed a controlled substance at d/c from ED?: No Referrals: Flynn Siegel MD [Primary Care Provider] - 1-2 days Time of Disposition: 17:13
[2022-06-01 16:13] LABS: Basophils # (A) 0.1 k/uL (0-0.2); Basophils % (A) 1 %; Eosinophils % (A) 0 %; HCT 38.1 % (34.0-46.0); HGB 13.3 gm/dL (11.4-16.0); Lymphocytes # (A) 1.6 k/uL (1.0-4.8); Lymphocytes % (A) 32 %; MCH 30.1 pg (25.0-35.0); Mean Platelet Volume 8.3; Monocytes # (A) 0.4 k/uL (0-1.0); Monocytes % (A) 7 %; Neutrophils # (A) 2.7 k/uL (1.3-7.7); Neutrophils % (A) 56 %; Platelet Count 238 k/uL (150-450); RBC 4.43 m/uL (3.80-5.40); RDW 13.6 % (11.5-15.5); WBC 4.8 k/uL (3.8-10.6)
[2022-06-01 16:28] LABS: ALT 22 U/L (4-34); AST 25 U/L (14-36); African American GFR (CKD) >90 (>60 ml/min/1.73 sqM); Albumin 4.1 g/dL (3.5-5.0); Alkaline Phosphatase 131 U/L (38-126); Amylase 50 U/L (30-110); Anion Gap 13 mmol/L; Blood Urea Nitrogen 7 mg/dL (7-17); Calcium 8.1 mg/dL (8.4-10.2); Carbon Dioxide 22 mmol/L (22-30); Chloride 101 mmol/L (98-107); Glucose 131 mg/dL (74-99); Lipase 76 U/L (23-300); Non-African American GFR(CKD) >90 (>60 ml/min/1.73 sqM); Potassium 3.5 mmol/L (3.5-5.1); Sodium 136 mmol/L (137-145); Total Bilirubin 0.5 mg/dL (0.2-1.3); Total Protein 6.5 g/dL (6.3-8.2)
--- NOTE | 2022-06-01 16:39 | XR ---
EXAMINATION TYPE: XR chest 2V DATE OF EXAM: 06/01/2022 COMPARISON: 05/30/2022 HISTORY: Weakness and cough. Chest pain TECHNIQUE:2 views FINDINGS: Heart and mediastinum are normal. Lungs are clear. Diaphragm is normal. Bony thorax appears normal. T here are clips at the right axilla. IMPRESSION: No active cardiopulmonary disease. No change.
--- NOTE | 2022-06-01 16:41 | XR ---
EXAMINATION TYPE: XR KUB DATE OF EXAM: 06/01/2022 COMPARISON: 12/17/2021 HISTORY: Pain TECHNIQUE: 2 views supine FINDINGS: There is no sign of intestinal obstruction or pneumoperitoneum. Fecal pattern is normal. No evidence of a mass. There are clips from cholecystectomy. There are no pathologic calcifications ove r the kidneys. There is hypertrophic spurring of the acetabula. IMPRESSION: Nonacute abdomen. No change.
[2022-06-01] MEDS ORDERED: ONDANSETRON 4 MG ODT STARTER PACK 2 TAB BTL PO STA (17:10)
[2022-06-01 18:35] VITALS: BP 135/68; PULSE 67; RESP 18
== END 2022-06-01 18:35 | disposition home or self-care (01) ==
LOC: EC 14:52
DX: R11.2 Nausea with vomiting, unspecified (principal); U07.1 COVID-19; E11.9 Type 2 diabetes mellitus without complications; K21.9 Gastro-esophageal reflux disease without esophagitis; E78.5 Hyperlipidemia, unspecified; I10 Essential (primary) hypertension; M19.90 Unspecified osteoarthritis, unspecified site; Z88.2 Allergy status to sulfonamides; Z91.018 Allergy to other foods; Z79.82 Long term (current) use of aspirin; Z79.83 Long term (current) use of bisphosphonates; Z79.84 Long term (current) use of oral hypoglycemic drugs; Z79.899 Other long term (current) drug therapy
CPT/HCPCS: 93005; 80053; 82150; 83605; 83690; 84484; 85025; 71046; 74018; 99284; 96374; 96361 ×2; J2405; S0119; 36415

== ENCOUNTER → 2022-06-17 | Outpatient (CLI) | payer MEDICARE, BC ==
[2022-06-17 15:28] LABS: HCT 39.6 % (37.2-46.3); HGB 12.5 g/dL (12.0-15.0); MCH 28.3 pg (27.0-32.0); MCHC 31.6 g/dL (32.0-37.0); MCV 89.8 fL (80.0-97.0); Mean Platelet Volume 9.7 fL (9.5-12.2); NRBC Per 100 WBC 0 /100 WBCS (0.0-0.0); Platelet Count 327 X 10*3/uL (140-440); RBC 4.41 X 10*6/uL (4.10-5.20); WBC 5.76 X 10*3/uL (4.50-10.00)
[2022-06-17 16:39] LABS: ALT 14 U/L (8-44); AST 11 U/L (13-35); Albumin 3.9 g/dL (3.8-4.9); Albumin/Globulin Ratio 1.88 (1.60-3.17); Alkaline Phosphatase 138 U/L (41-126); Blood Urea Nitrogen 8.5 mg/dL (9.0-27.0); Calcium 8.2 mg/dL (8.7-10.3); Carbon Dioxide 29.1 mmol/L (20.0-27.5); Chloride 101 mmol/L (96-109); Chol/HDL Ratio 3.38 Ratio; Globulin 2.1 g/dL (1.6-3.3); Glucose 190 mg/dL (70-110); LDL Cholesterol,Calculated 78.1 mg/dL (0.0-131.0); Non-African American GFR(CKD) 96.6 (60.0-200.0); Sodium 140 mmol/L (135-145)
== END | disposition home or self-care (01) ==
LOC: LABWHC1 08:07
PROVIDERS: ATTEND Psychiatry & Neurology Neurology
DX: G40.909 Epilepsy, unspecified, not intractable, without status epilepticus (principal); E78.2 Mixed hyperlipidemia; G62.9 Polyneuropathy, unspecified; R53.83 Other fatigue
CPT/HCPCS: 36415; 80053; 80061; 80156; 82607; 84207; 84439; 84443; 84481; 85027; 86334

== ENCOUNTER → 2022-08-05 | Outpatient (CLI) | payer MEDICARE, BC ==
[2022-08-05 07:55] LABS: HCT 38.1 % (34.0-46.0); HGB 12.9 gm/dL (11.4-16.0); MCH 29.8 pg (25.0-35.0); MCHC 33.9 g/dL (31.0-37.0); Platelet Count 348 k/uL (150-450); RBC 4.33 m/uL (3.80-5.40); RDW 13.7 % (11.5-15.5); WBC 8.1 k/uL (3.8-10.6)
[2022-08-05 08:16] LABS: Albumin 3.9 g/dL (3.5-5.0); Calcium 8.5 mg/dL (8.4-10.2); Potassium 4.5 mmol/L (3.5-5.1); Total Bilirubin 0.4 mg/dL (0.2-1.3); Total Protein 6.5 g/dL (6.3-8.2)
[2022-08-05 08:19] LABS: Appearance,Urine Cloudy (Clear); Bacteria,Urine Rare /hpf; Bilirubin,Urine Negative (Negative); Blood,Urine Negative (Negative); Budding Yeast,Urine Rare /hpf; Color,Urine Yellow; Glucose,Urine (UA) 4+ (Negative); Ketones,Urine Negative (Negative); Leukocyte Esterase,Urine Trace (Negative); Mucus,Urine Rare /hpf; Nitrite,Urine Negative (Negative); Protein,Urine Negative (Negative); Specific Gravity,Urine 1.022 (1.001-1.035); Squamous Epithelial Cell,Urine 3 /hpf (0-4); Urobilinogen,Urine <2.0 mg/dL (<2.0); WBC,Urine 14 /hpf (0-5)
== END | disposition home or self-care (01) ==
LOC: LAB 07:03
PROVIDERS: ATTEND Orthopaedic Surgery
DX: Z01.812 Encounter for preprocedural laboratory examination (principal); M16.12 Unilateral primary osteoarthritis, left hip; E11.9 Type 2 diabetes mellitus without complications
CPT/HCPCS: 80053; 81001; 83036; 85027; 86850; 86900; 86901; 87070

== ENCOUNTER → 2022-08-06 | Outpatient (CLI) | payer MEDICARE, BC ==
[2022-08-06 09:20] LABS: INR 0.9 (<1.2)
[2022-08-06 09:21] LABS: Partial Thromboplastin Time 21.9 sec (22.0-30.0)
== END | disposition home or self-care (01) ==
LOC: LABPAT 07:03
PROVIDERS: ATTEND Orthopaedic Surgery
DX: Z01.812 Encounter for preprocedural laboratory examination (principal); M16.12 Unilateral primary osteoarthritis, left hip; E11.9 Type 2 diabetes mellitus without complications
CPT/HCPCS: 85610; 85730

== ENCOUNTER → 2022-09-09 | Outpatient (CLI) | payer MEDICARE, BC ==
[2022-09-09 11:11] LABS: African American GFR (CKD) 87.2 (60.0-200.0); Anion Gap 9.5 mmol/L (10.00-18.00); BUN/Creat Ratio 19.5 Ratio (12.00-20.00); Blood Urea Nitrogen 15.6 mg/dL (9.0-27.0); Calcium 9.1 mg/dL (8.7-10.3); Carbon Dioxide 25.5 mmol/L (20.0-27.5); Non-African American GFR(CKD) 75.2 (60.0-200.0); Potassium 4.3 mmol/L (3.5-5.5)
== END | disposition home or self-care (01) ==
LOC: LABWHC1 06:57
PROVIDERS: ATTEND Internal Medicine
DX: I10 Essential (primary) hypertension (principal); E87.8 Other disorders of electrolyte and fluid balance, not elsewhere classified; L50.1 Idiopathic urticaria; L29.8 Other pruritus; D51.9 Vitamin B12 deficiency anemia, unspecified
CPT/HCPCS: 36415; 80048; 83036; 84450; 84460

== ENCOUNTER 2023-06-10 06:19 | Inpatient (IN) | payer MEDICARE ==
[2023-06-10] MEDS ORDERED: SODIUM CHLORIDE 0.9% 1,000 ML IV STA (06:44)
[2023-06-10] MEDS ORDERED: METOCLOPRAMIDE 5 MG/ML 2 ML VIAL IVP STA ×2 (06:44→11:24)
--- NOTE | 2023-06-10 06:52 | ED ---
Nausea/Vomiting/Diarrhea HPI - General Chief complaint: Nausea/Vomiting/Diarrhea Stated complaint: Vomiting Time Seen by Provider: 06/10/23 06:31 Source: patient, RN notes reviewed Mode of arrival: wheelchair Limitations: no limitations - History of Present Illness Initial comments: Patient is 68-year-old female presented ER with chief complaint of nausea and vomiting. Patient states she had a headache all day yesterday and started vomiting last night around 8:30pm. She has not taken any meds for her symptoms. Patient states she tried eating soup and vomited it back up about a half hour later. She endorses associated cold sweats and chills. Denies any sick contacts, diarrhea, urinary symptoms. Patient states she would wake up every 20 minutes throughout the night and have an episode of vomiting. Denies any hematemesis. Patient does state that her abdomen seems more distended than normal. Patient states she experiences symptoms before about a year ago and they determined it was her metformin and was taken off of it. Patient states she started a new insulin about 6-8 months ago. Patient admits to cholecystectomy, hysterectomy and appendectomy. - Related Data Home Medications Medication Instructions Recorded Confirmed levETIRAcetam [Keppra] 1,000 mg PO BID 12/16/13 01/23/22 Atorvastatin [Lipitor] 20 mg PO HS 04/21/14 01/23/22 Enalapril [Vasotec] 20 mg PO BID 06/07/21 01/23/22 Metoprolol Tartrate [Lopressor] 50 mg PO BID 06/07/21 01/23/22 amLODIPine [Norvasc] 10 mg PO HS 06/07/21 01/23/22 hydrALAZINE HCL [Apresoline] 100 mg PO TID 06/07/21 01/23/22 cloNIDine HCL [Catapres] 0.2 mg PO BID 10/08/21 01/23/22 carBAMazepine [carBAMazepine ER] 600 mg PO BID 11/13/21 01/23/22 Aspirin [Adult Low Dose Aspirin EC] 81 mg PO DAILY 12/13/21 01/23/22 PARoxetine [Paxil] 10 mg PO DAILY 01/18/22 01/23/22 hydroCHLOROthiazide 25 mg PO DAILY 01/18/22 01/23/22 Previous Rx's Medication Instructions Recorded glipiZIDE [Glucotrol] 5 mg PO AC-BID tab 12/17/21 Aspirin [Adult Low Dose Aspirin EC] 81 mg PO BID #60 tab 01/28/22 Docusate [Colace] 100 mg PO BID #60 capsule 01/28/22 HYDROcodone/APAP 10-325MG [[place] 1 tab PO Q4HR PRN #42 tab 01/28/22 10-325] cefTRIAXone [Rocephin] 2 gm IVPB Q24H #42 each 01/29/22 Albuterol Inhaler [Ventolin Hfa 1 - 2 puff INHALATION Q6H PRN #1 06/01/22 Inhaler] unit Ondansetron Odt [Zofran Odt] 4 mg PO Q8HR PRN #20 tab 06/01/22 Allergies Allergy/AdvReac Type Severity Reaction Status Date / Time chlorhexidine Allergy Itching Verified 06/10/23 06:24 Mushroom Allergy Itching Verified 06/10/23 06:24 Review of Systems ROS Statement: Those systems with pertinent positive or pertinent negative responses have been documented in the HPI. ROS Other: All systems not noted in ROS Statement are negative. Past Medical History Past Medical History: Cancer, CVA/TIA, Diabetes Mellitus, GERD/Reflux, Hyperlipidemia, Hypertension, Osteoarthritis (OA), Pneumonia, Seizure Disorder Additional Past Medical History / Comment(s): breast/colon/ovarian,uterine CA, no bp in rt arm. told she had a stroke 03/2014 "blood clot in back of head". hx of head injury 3rd grade, pt states she has "slow thinking process"and seizures started after injury. -last seizure POSSIBLE FEBRUARY 2021 , hx back pain, brain aneurysm 2007, menieres disease History of Any Multi-Drug Resistant Organisms: None Reported Past Surgical History: Adenoidectomy, Appendectomy, Bladder Surgery, Bowel Resection, Breast Surgery, Section, Cholecystectomy, Hernia Repair, Hysterectomy, Joint Replacement, Tonsillectomy Additional Past Surgical History / Comment(s): manpreet. mastectomy , manpreet BREAST BX, MANPREET CATARACT SX, BLADDER SUSPENSION, bowel resection x2 d/t ca, left total knee repl. Past Anesthesia/Blood Transfusion Reactions: Postoperative Nausea & Vomiting (PONV) Past Psychological History: Anxiety, Depression Smoking Status: Never smoker Past Alcohol Use History: None Reported Past Drug Use History: None Reported - Past Family History Mother Family Medical History: Cancer Father Family Medical History: Cancer General Exam Limitations: no limitations General appearance: alert, in no apparent distress Respiratory exam: Present: normal lung sounds bilaterally. Absent: respiratory distress, wheezes, rales, rhonchi, stridor Cardiovascular Exam: Present: regular rate, normal rhythm, normal heart sounds. Absent: systolic murmur, diastolic murmur, rubs, gallop, clicks GI/Abdominal exam: Present: soft, tenderness (LUQ), normal bowel sounds Skin exam: Present: warm (5 in surgical scar noted on right abdomen ), dry, intact, normal color. Absent: rash Course Vital Signs 06/10/23 06/10/23 06/10/23 06:20 08:31 10:00 Temperature 98.2 F Pulse Rate 113 H 84 89 Respiratory 22 18 18 Rate Blood Pressure 146/75 166/73 O2 Sat by Pulse 94 L 97 99 Oximetry 06/10/23 11:16 Temperature Pulse Rate 88 Respiratory 18 Rate Blood Pressure 140/66 O2 Sat by Pulse 99 Oximetry Medical Decision Making - Medical Decision Making Was pt. sent in by a medical professional or institution (, PA, LACE ROLLER, urgent care, hospital, or shelter...) When possible be specific @ -No Did you speak to anyone other than the patient for history (EMS, parent, family, police, friend...)? What history was obtained from this source @ -No Did you review nursing and triage notes (agree or disagree)? Why? @ -I reviewed and agree with nursing and triage notes Were old charts reviewed (outside hosp., previous admission, EMS record, old EKG, old radiological studies, urgent care reports/EKG's, shelter records)? Report findings @ -No old charts were reviewed Differential Diagnosis (chest pain, altered mental status, abdominal pain women, abdominal pain men, vaginal bleeding, weakness, fever, dyspnea, syncope, head ache, dizziness, GI bleed, back pain, seizure, CVA, palpatations, mental health, musculoskeletal)? @ -nDifferential Abdominal Pain Women: Appendicitis, Cholecystitis, diverticulosis, ischemic bowel, pancreatitis, hepatitis, UTI, gastroenteritis, AAA, incarcerated hernia, bowel obstruction, constipation, inflammatory bowel, hepatitis, peptic ulcer disease, splenic infarction, perforated viscus, vulvitis, ovarian torsion, PID, kidney stone, placenta abruption, this is not meant to be an all-inclusive liste EKG interpreted by me (3pts min.). @ -None X-rays interpreted by me (1pt min.). @ -None done CT interpreted by me (1pt min.). @ -CT abdomen and pelvis shows dilated fluid-filled loops on the left side measuring up to 4.4 cm. Both moderate enteritis and partial small bowel obstruction are in the differential. U/S interpreted by me (1pt. min.). @ -None done What testing was considered but not performed or refused? (CT, X-rays, U/S, labs)? Why? @ -None What meds were considered but not given or refused? Why? @ -None Did you discuss the management of the patient with other professionals (professionals i.e. , PA, LACE ROLLER, lab, RT, psych nurse, social media designer, farm demonstrator, teacher, campus police officer, rn case manager hospice)? Give summary @ -Yes, I spoke with Dr. Meza who will be on consult. I also spoke with Dr. Siegel for admission. Was smoking cessation discussed for >3mins.? @ -No Was critical care preformed (if so, how long)? @ -No Were there social determinants of health that impacted care today? How? (Homelessness, low income, unemployed, alcoholism, drug addiction, transportation, low edu. Level, literacy, decrease access to med. care, penitentiary, rehab)? @ -No Was there de-escalation of care discussed even if they declined (Discuss DNR or withdrawal of care, Hospice)? DNR status @ -No What co-morbidities impacted this encounter? (DM, HTN, Smoking, COPD, CAD, Cancer, CVA, ARF, Chemo, Hep., AIDS, mental health diagnosis, sleep apnea, morbid obesity)? @ -None Was patient admitted / discharged? Hospital course, mention meds given and route, prescriptions, significant lab abnormalities, going to OR and other pertinent info. @ -Admitted. Patient is 68-year-old female presented ER with chief complaint of nausea and vomiting. Labs were significant for white blood cell count of 11.2. Computed tomography scan showed dilated fluid-filled loops on the left side measuring up to 4.4 cm. Moderate enteritis and partial small bowel obstruction are in the differential currently. I spoke with Dr. Meza who the patient was seen by prior for abdominal pain and he will be on consult. Patient will be admitted under Dr. Siegel. Patient received IV Reglan and IV morphine for symptoms. Patient will be admitted for observation and further evaluation. Undiagnosed new problem with uncertain prognosis? @ -No Drug Therapy requiring intensive monitoring for toxicity (Heparin, Nitro, Insulin, Cardizem)? @ -No Were any procedures done? @ -No Diagnosis/symptom? @ -Abdominal pain/enteritis/partial small bowel obstruction Acute, or Chronic, or Acute on Chronic? @ -Acute Uncomplicated (without systemic symptoms) or Complicated (systemic symptoms)? @ -Uncomplicated Side effects of treatment? @ -No Exacerbation, Progression, or Severe Exacerbation? @ -No Poses a threat to life or bodily function? How? (Chest pain, [place], ME, pneumonia, PE, COPD, DKA, ARF, appy, cholecystitis, CVA, Diverticulitis, Homicidal, Suicidal, threat to staff... and all critical care pts) @ -No - Lab Data Result diagrams: 06/10/23 07:17 06/10/23 07:17 Lab Results 06/10/23 06/10/23 06/10/23 Range/Units 07:17 07:17 07:17 WBC 11.6 H (3.8-10.6) k/uL RBC 4.71 (3.80-5.40) m/uL Hgb 13.8 (11.4-16.0) gm/dL Hct 41.5 (34.0-46.0) % MCV 88.1 (80.0-100.0) fL MCH 29.3 (25.0-35.0) pg MCHC 33.3 (31.0-37.0) g/dL RDW 13.3 (11.5-15.5) % Plt Count 392 (150-450) k/uL MPV 8.0 Neutrophils % 85 % Lymphocytes % 11 % Monocytes % 4 % Eosinophils % 0 % Basophils % 0 % Neutrophils # 9.8 H (1.3-7.7) k/uL Lymphocytes # 1.2 (1.0-4.8) k/uL Monocytes # 0.4 (0-1.0) k/uL Eosinophils # 0.0 (0-0.7) k/uL Basophils # 0.0 (0-0.2) k/uL Sodium 137 (137-145) mmol/L Potassium 5.0 (3.5-5.1) mmol/L Chloride 98 (98-107) mmol/L Carbon Dioxide 25 (22-30) mmol/L Anion Gap 14 mmol/L BUN 22 H (7-17) mg/dL Creatinine 0.68 (0.52-1.04) mg/dL Est GFR (CKD-EPI)AfAm >90 (>60 ml/min/1.73 sqM) Est GFR (CKD-EPI)NonAf 89 (>60 ml/min/1.73 sqM) Glucose 281 H (74-99) mg/dL Plasma Lactic Acid Miles (0.7-2.0) mmol/L Calcium 9.9 (8.4-10.2) mg/dL Total Bilirubin 0.6 (0.2-1.3) mg/dL AST 26 (14-36) U/L ALT 21 (4-34) U/L Alkaline Phosphatase 155 H (38-126) U/L Total Protein 7.3 (6.3-8.2) g/dL Albumin 4.5 (3.5-5.0) g/dL Amylase 56 (30-110) U/L Lipase 75 (23-300) U/L Urine Color Yellow Urine Appearance Clear (Clear) Urine pH 5.5 (5.0-8.0) Ur Specific [place] 1.025 (1.001-1.035) Urine Protein Trace H (Negative) Urine Glucose (UA) 4+ (Negative) Urine Ketones 1+ (Negative) Urine Blood Negative (Negative) Urine Nitrite Negative (Negative) Urine Bilirubin Negative (Negative) Urine Urobilinogen <2.0 (<2.0) mg/dL Ur Leukocyte Esterase Negative (Negative) 06/10/23 Range/Units 07:17 WBC (3.8-10.6) k/uL RBC (3.80-5.40) m/uL Hgb (11.4-16.0) gm/dL Hct (34.0-46.0) % MCV (80.0-100.0) fL MCH (25.0-35.0) pg MCHC (31.0-37.0) g/dL RDW (11.5-15.5) % Plt Count (150-450) k/uL MPV Neutrophils % % Lymphocytes % % Monocytes % % Eosinophils % % Basophils % % Neutrophils # (1.3-7.7) k/uL Lymphocytes # (1.0-4.8) k/uL Monocytes # (0-1.0) k/uL Eosinophils # (0-0.7) k/uL Basophils # (0-0.2) k/uL Sodium (137-145) mmol/L Potassium (3.5-5.1) mmol/L Chloride (98-107) mmol/L Carbon Dioxide (22-30) mmol/L Anion Gap mmol/L BUN (7-17) mg/dL Creatinine (0.52-1.04) mg/dL Est GFR (CKD-EPI)AfAm (>60 ml/min/1.73 sqM) Est GFR (CKD-EPI)NonAf (>60 ml/min/1.73 sqM) Glucose (74-99) mg/dL Plasma Lactic Acid [place] 1.8 (0.7-2.0) mmol/L Calcium (8.4-10.2) mg/dL Total Bilirubin (0.2-1.3) mg/dL AST (14-36) U/L ALT (4-34) U/L Alkaline Phosphatase (38-126) U/L Total Protein (6.3-8.2) g/dL Albumin (3.5-5.0) g/dL Amylase (30-110) U/L Lipase (23-300) U/L Urine Color Urine Appearance (Clear) Urine pH (5.0-8.0) Ur Specific [place] (1.001-1.035) Urine Protein (Negative) Urine Glucose (UA) (Negative) Urine Ketones (Negative) Urine Blood (Negative) Urine Nitrite (Negative) Urine Bilirubin (Negative) Urine Urobilinogen (<2.0) mg/dL Ur Leukocyte Esterase (Negative) - Radiology Data Radiology results: report reviewed, image reviewed Disposition Clinical Impression: Enteritis, Partial small bowel obstruction Disposition: ADMITTED IP TO THIS [facility] Condition: Stable Referrals: Flynn Siegel MD [Primary Care Provider] - 1-2 days Time of Disposition: 12:21
[2023-06-10 08:32] LABS: Basophils % (A) 0 %; Eosinophils % (A) 0 %; HCT 41.5 % (34.0-46.0); HGB 13.8 gm/dL (11.4-16.0); Lymphocytes # (A) 1.2 k/uL (1.0-4.8); Lymphocytes % (A) 11 %; MCH 29.3 pg (25.0-35.0); MCHC 33.3 g/dL (31.0-37.0); MCV 88.1 fL (80.0-100.0); Monocytes # (A) 0.4 k/uL (0-1.0); Monocytes % (A) 4 %; Neutrophils # (A) 9.8 k/uL (1.3-7.7); Neutrophils % (A) 85 %; Platelet Count 392 k/uL (150-450); RBC 4.71 m/uL (3.80-5.40); RDW 13.3 % (11.5-15.5); WBC 11.6 k/uL (3.8-10.6)
[2023-06-10 08:42] LABS: ALT 21 U/L (4-34); African American GFR (CKD) >90 (>60 ml/min/1.73 sqM); Albumin 4.5 g/dL (3.5-5.0); Amylase 56 U/L (30-110); Blood Urea Nitrogen 22 mg/dL (7-17); Calcium 9.9 mg/dL (8.4-10.2); Carbon Dioxide 25 mmol/L (22-30); Glucose 281 mg/dL (74-99); Lipase 75 U/L (23-300); Non-African American GFR(CKD) 89 (>60 ml/min/1.73 sqM); Total Bilirubin 0.6 mg/dL (0.2-1.3); Total Protein 7.3 g/dL (6.3-8.2)
[2023-06-10 08:59] LABS: AST 26 U/L (14-36); Alkaline Phosphatase 155 U/L (38-126)
[2023-06-10 09:00] LABS: Anion Gap 14 mmol/L; Chloride 98 mmol/L (98-107); Sodium 137 mmol/L (137-145)
[2023-06-10 09:25] LABS: Appearance,Urine Clear (Clear); Bilirubin,Urine Negative (Negative); Blood,Urine Negative (Negative); Color,Urine Yellow; Glucose,Urine (UA) 4+ (Negative); Ketones,Urine 1+ (Negative); PH, Urine 5.5 (5.0-8.0); Protein,Urine Trace (Negative); Specific Gravity,Urine 1.025 (1.001-1.035)
[2023-06-10 09:26] LABS: Leukocyte Esterase,Urine Negative (Negative); Nitrite,Urine Negative (Negative); Urobilinogen,Urine <2.0 mg/dL (<2.0)
--- NOTE | 2023-06-10 11:03 | CT ---
EXAMINATION TYPE: CT abdomen pelvis wo con DATE OF EXAM: 06/10/2023 COMPARISON: 12/13/2021 HISTORY: 68-year-old female Generalized pain, nausea and vomiting CT DLP: 745 mGycm. Automated exposure control for dose reduction was used. TECHNIQUE: Contiguous axial scanning of the abdomen and pelvis without IV contrast. Coronal and sagit katya reconstructions performed. FINDINGS: Heart borderline enlarged with trace pericardial fluid which is unchanged. Calcified granuloma left b ase. No pleural effusion. Noncontrast appearance of the liver, adrenal glands, kidneys, spleen, and pancreas show no gross abno rmality. Cholecystectomy clips. Redemonstrated distended and mildly thickened jejunal loops in the left side of the abdomen distended up to 4.4 cm. There is some liquid stool noted in the right side of the colon. There is mild to moderate overall st ool burden. Staple line at the distal sigmoid from prior resection and re-anastomosis. No pericolonic inflammatory changes seen. Postsurgical change along the anterior infraumbilical abdominal wall with mesh repair. Bladder not distended. Uterus surgically absent. Right-sided pelvic phlebolith. No abnormal fluid col lection in the pelvis or pelvic lymphadenopathy. Neither ovary clearly seen. Bones: Moderate degenerative change both hips. Hypertrophic facet arthropathy mid to lower lumbar spi ne. IMPRESSION: 1. Dilated fluid-filled jejunal loops in the left side of the abdomen distended up to 4.4 cm. No dis crete transition point is seen. There is some liquid stool in the right side of the colon as well. Rolan th a moderate enteritis and partial small bowel obstruction are in the differential at this time. Fol low-up recommended. 2. Prior infraumbilical anterior abdominal wall mesh repair. Prior resection and reanastomosis of di stal sigmoid colon. Prior cholecystectomy and hysterectomy.
[2023-06-10] MEDS ORDERED: MORPHINE SULFATE 2 MG/ML SYRINGE IVP STA (11:24)
[2023-06-10] MEDS ORDERED: NALOXONE 0.4 MG/ML 1 ML VIAL IV PRN (12:10)
[2023-06-10] MEDS: SODIUM CHLORIDE 0.9% 1,000 ML IV SCH (12:51)
--- NOTE | 2023-06-10 15:36 | P.GSCN ---
History of Present Illness Consult date: 06/10/23 History of present illness: CHIEF COMPLAINT: Abdominal pain with nausea and vomiting HISTORY OF PRESENT ILLNESS: This is a 68-year-old female who presented to the hospital with complaints of abdominal pain and intractable nausea and vomiting that started around 8 PM yesterday evening. Patient reports that she her appetite has been decreased throughout the day and she can having headaches. She also is having increased nausea. She tried to eat soup for dinner and then afterwards had significant amount of vomiting. She denies any blood in the emesis. She denies any prior history of bowel obstructions. Patient reports having bowel movements and flatus yesterday. She has had none today. I'm she does complain of upper abdominal pain and left mid abdominal pain. She reports that her abdomen feels stented. She had computed tomography scan of the abdomen and pelvis that reported dilated fluid filled jejunal loops on the left side of abdomen distended up to 4.4 cm. Both a moderate enteritis and partial small bowel obstruction are in the differential. Patient reports that the vomiting has subsided after medications given. She does have a past medical history of colon cancer with 3 prior bowel resections. Also history of hysterectomy and cholecystectomy. She doesn't have a history of breast cancer, ovarian cancer and uterine cancer as well. Patient reports her last colonoscopy was a year ago and was unremarkable. PAST MEDICAL HISTORY: See below PAST SURGICAL HISTORY: See below MEDICATIONS: See below ALLERGIES: See below SOCIAL HISTORY: No illicit drug use. REVIEW OF SYSTEMS: CONSTITUTIONAL: Denies fever or chills. HEENT: Denies blurred vision, vision changes, or eye pain. Denies hemoptysis CARDIOVASCULAR: Denies chest pain or pressure. RESPIRATORY: No shortness of breath. GASTROINTESTINAL: See HPI for pertinent findings HEMATOLOGIC: Denies bleeding disorders. GENITOURINARY: Denies any blood in urine or increased urinary frequency. SKIN: Denies pruitis. Denies rash. PHYSICAL EXAM: VITAL SIGNS: Reviewed GENERAL: Well-developed in no acute distress. ABDOMEN: Soft. Distended. Tenderness to palpation of the upper abdomen and left mid abdomen NEUROLOGIC: Alert and oriented. Cranial nerves II through XII grossly intact. LABORATORY DATA: WBC 11.6 Hgb 13.8 platelets 392 Sodium 137 potassium is 5.0 creatinine 0.68 Lactic acid 1.8 IMAGING: Computed tomography scan abdomen and pelvis reports a dilated fluid filled jejunal loops in the left side of the abdomen distended up to 4.4 cm. No discrete transition point is seen. There is some liquid stool in the right side of the colon as well. Both the moderate enteritis and partial small bowel obstruction are in the differential. Prior infraumbilical anterior abdominal wall mesh repair. ASSESSMENT: 1. Possible partial small bowel obstruction versus enteritis 2. CT reports dilated fluid filled jejunal loops in the left side of the abdom en distended up to 4.4 cm 3. History of multiple abdominal surgeries PLAN: -Place NG tube for decompression -Keep patient nothing by mouth -Continue IV fluids -Continue pain management -Continue antiemetics -Abdominal x-ray ordered for a.m. Thank you for this consultation Physician Fifth Grade Teacher note has been reviewed by physician. Signing provider agrees with the documented findings, assessment, and plan of care. I have personally seen and examined the patient, reviewed the GARMENT FITTER /PAs history, exam and MDM and agree with the assessment and plan as written. Based on total visit time, I have performed more than 50% of the visit. As above: Patient has frequent vomiting and pain. CAT scan reviewed and shows both dilated small bowel loops proximally and dilated colon. Gentle tapering of the small bowel favors nonobstructive pattern. Distention of the colon throughout appreciated with narrowing of the distal rectum. This may be related to peristalsis. Will order limited Gastrografin enema tomorrow to evaluate for distal colonic obstruction. Keep nasogastric tube to suction. Continue bowel rest. Will follow. Past Medical History Past Medical History: Cancer, CVA/TIA, Diabetes Mellitus, GERD/Reflux, Hyperlipidemia, Hypertension, Osteoarthritis (OA), Pneumonia, Seizure Disorder Additional Past Medical History / Comment(s): breast/colon/ovarian,uterine CA, no bp in rt arm. told she had a stroke 03/2014 "blood clot in back of head". hx of head injury 3rd grade, pt states she has "slow thinking process"and seizures started after injury. -last seizure POSSIBLE FEBRUARY 2021 , hx back pain, brain aneurysm 2007, menieres disease History of Any Multi-Drug Resistant Organisms: None Reported Past Surgical History: Adenoidectomy, Appendectomy, Bladder Surgery, Bowel R esection, Breast Surgery, Section, Cholecystectomy, Hernia Repair, Hysterectomy, Joint Replacement, Tonsillectomy Additional Past Surgical History / Comment(s): manpreet. mastectomy , manpreet BREAST BX, MANPREET CATARACT SX, BLADDER SUSPENSION, bowel resection x2 d/t ca, left total knee repl. Past Anesthesia/Blood Transfusion Reactions: Postoperative Nausea & Vomiting (PONV) Past Psychological History: Anxiety, Depression Smoking Status: Never smoker Past Alcohol Use History: None Reported Past Drug Use History: None Reported - Past Family History Mother Family Medical History: Cancer Father Family Medical History: Cancer Medications and Allergies Home Medications Medication Instructions Recorded Confirmed Type levETIRAcetam [Keppra] 1,000 mg PO BID 12/16/13 06/10/23 History Atorvastatin [Lipitor] 20 mg PO HS 04/21/14 06/10/23 History Enalapril [Vasotec] 20 mg PO BID 06/07/21 06/10/23 History Metoprolol Tartrate [Lopressor] 50 mg PO TID 06/07/21 06/10/23 History amLODIPine [Norvasc] 10 mg PO HS 06/07/21 06/10/23 History carBAMazepine [carBAMazepine ER] 600 mg PO BID 11/13/21 06/10/23 History PARoxetine [Paxil] 10 mg PO DAILY 01/18/22 06/10/23 History hydroCHLOROthiazide 25 mg PO DAILY 01/18/22 06/10/23 History Aspirin 325 mg PO HS 06/10/23 06/10/23 History Dapagliflozin Propanediol [Farxiga] 10 mg PO DIRECTED 06/10/23 06/10/23 History Diphenoxylate HCl/Atropine 2 tab PO QID PRN 06/10/23 06/10/23 History [Lomotil 2.5-0.025 mg Tablet] Ergocalciferol [Vitamin D2 (1250 1,250 mcg PO WE 06/10/23 06/10/23 History Mcg = 00265 Iu)] Fluticasone Nasal [place] [Flonase 1 - 2 spray EA NOSTRIL DAILY PRN 06/10/23 06/10/23 History Nasal [place]] Ibuprofen [Motrin] 800 mg PO Q8H PRN 06/10/23 06/10/23 History Insulin Regular, Human [Novolin R] See Protocol SQ AC-TID 06/10/23 06/10/23 History Pioglitazone [Actos] 30 mg PO DAILY 06/10/23 06/10/23 History cloNIDine HCL [Catapres] 0.2 mg PO TID 06/10/23 06/10/23 History glipiZIDE [Glucotrol] 10 mg PO BID 06/10/23 06/10/23 History hydrALAZINE HCL [Apresoline] 50 mg PO TID 06/10/23 06/10/23 History Allergies Allergy/AdvReac Type Severity Reaction Status Date / Time chlorhexidine Allergy Itching Verified 06/10/23 12:44 Mushroom Allergy Itching Verified 06/10/23 12:44 Surgical - Exam Vital Signs Temp Pulse Resp BP Pulse Ox 98.2 F 113 H 22 146/75 94 L 06/10/23 06:20 06/10/23 06:20 06/10/23 06:20 06/10/23 06:20 06/10/23 06:20 Results - Labs 06/10/23 07:17 06/10/23 07:17 Abnormal Lab Results - Last 24 Hours (Table) 06/10/23 06/10/23 06/10/23 Range/Units 07:17 07:17 07:17 WBC 11.6 H (3.8-10.6) k/uL Neutrophils # 9.8 H (1.3-7.7) k/uL BUN 22 H (7-17) mg/dL Glucose 281 H (74-99) mg/dL Alkaline Phosphatase 155 H (38-126) U/L Urine Protein Trace H (Negative) Diabetes panel 06/10/23 Range/Units 07:17 Sodium 137 (137-145) mmol/L Potassium 5.0 (3.5-5.1) mmol/L Chloride 98 (98-107) mmol/L Carbon Dioxide 25 (22-30) mmol/L BUN 22 H (7-17) mg/dL Creatinine 0.68 (0.52-1.04) mg/dL Glucose 281 H (74-99) mg/dL Calcium 9.9 (8.4-10.2) mg/dL AST 26 (14-36) U/L ALT 21 (4-34) U/L Alkaline Phosphatase 155 H (38-126) U/L Total Protein 7.3 (6.3-8.2) g/dL Albumin 4.5 (3.5-5.0) g/dL Calcium panel 06/10/23 Range/Units 07:17 Calcium 9.9 (8.4-10.2) mg/dL Albumin 4.5 (3.5-5.0) g/dL Pituitary panel 06/10/23 Range/Units 07:17 Sodium 137 (137-145) mmol/L Potassium 5.0 (3.5-5.1) mmol/L Chloride 98 (98-107) mmol/L Carbon Dioxide 25 (22-30) mmol/L BUN 22 H (7-17) mg/dL Creatinine 0.68 (0.52-1.04) mg/dL Glucose 281 H (74-99) mg/dL Calcium 9.9 (8.4-10.2) mg/dL Adrenal panel 06/10/23 Range/Units 07:17 Sodium 137 (137-145) mmol/L Potassium 5.0 (3.5-5.1) mmol/L Chloride 98 (98-107) mmol/L Carbon Dioxide 25 (22-30) mmol/L BUN 22 H (7-17) mg/dL Creatinine 0.68 (0.52-1.04) mg/dL Glucose 281 H (74-99) mg/dL Calcium 9.9 (8.4-10.2) mg/dL Total Bilirubin 0.6 (0.2-1.3) mg/dL AST 26 (14-36) U/L ALT 21 (4-34) U/L Alkaline Phosphatase 155 H (38-126) U/L Total Protein 7.3 (6.3-8.2) g/dL Albumin 4.5 (3.5-5.0) g/dL
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
[2023-06-10] MEDS: ONDANSETRON 4 MG/2 ML VIAL IVP PRN (18:20)
[2023-06-10] MEDS: MORPHINE SULFATE 4 MG/ML SYRINGE IV PRN (18:20)
[2023-06-10 18:26] LABS: Glucose,Whole Blood 206 mg/dL (70-110)
[2023-06-10] MEDS: INSULIN REGULAR 100 UNIT/ML VIAL (IV) SQ SCH (18:30)
[2023-06-10] MEDS: ENALAPRILAT 1.25 MG/ML 1 ML VIAL IVP PRN (22:16)
[2023-06-10 22:19] LABS: Glucose,Whole Blood 163 mg/dL (70-110)
[2023-06-11] MEDS: SODIUM CHLORIDE 0.9% 1,000 ML IV SCH ×2 (02:12→21:15)
[2023-06-11 06:42] LABS: Glucose,Whole Blood 172 mg/dL (70-110)
[2023-06-11] MEDS: INSULIN REGULAR 100 UNIT/ML VIAL (IV) SQ SCH ×3 (07:44→17:04)
[2023-06-11 08:57] LABS: Glucose,Whole Blood 184 mg/dL (70-110)
--- NOTE | 2023-06-11 09:10 | XR ---
EXAMINATION TYPE: XR abdomen 2V DATE OF EXAM: 06/11/2023 COMPARISON: 06/01/2022 HISTORY: Abdominal pain TECHNIQUE: One view abdominal series FINDINGS: The osseous structures are intact. The bowel gas pattern is nonspecific. Surgical clips in the right upper quadrant. There are multiple dilated small bowel loops. Previous surgical change in the pelvis . Hypertrophic arthropathy of the hips correlate for femoral acetabular impingement. Hypertrophic and degenerative changes of the spine. Sclerosis involving the symphysis is likely post arthritic. Tiny calcification in the pelvis likely vascular. Surgical clips right upper quadrant. Surgical clips over lying the right chest wall. IMPRESSION: 1. Markedly distended bowel loops with air-fluid levels compatible with small bowel obstruction..
[2023-06-11] MEDS: ENALAPRILAT 1.25 MG/ML 1 ML VIAL IVP PRN ×2 (09:29→21:35)
[2023-06-11] MEDS: MORPHINE SULFATE 4 MG/ML SYRINGE IV PRN (09:30)
[2023-06-11 10:52] LABS: Basophils # (A) 0.03 X 10*3/uL (0.00-0.10); Basophils % (A) 0.5 %; Eosinophils % (A) 3.2 %; HCT 36.4 % (37.2-46.3); HGB 11.5 d/dL (12.0-15.0); Lymphocytes # (A) 1.92 X 10*3/uL (0.90-5.00); Lymphocytes % (A) 30.7 %; MCH 28.7 pg (27.0-32.0); MCHC 31.6 d/dL (32.0-37.0); MCV 90.8 FL (80.0-97.0); Mean Platelet Volume 9.5 FL (9.5-12.2); Monocytes # (A) 0.58 X 10*3/uL (0.20-1.00); Monocytes % (A) 9.3 %; NRBC Per 100 WBC 0 X 10*3/uL (0.00-0.01); Neutrophils # (A) 3.49 X 10*3/uL (1.80-7.70); Neutrophils % (A) 55.7 %; Platelet Count 284 X 10*3/uL (140-440); RBC 4.01 X 10*6/uL (4.10-5.20); RDW 12.8 % (11.5-14.5); WBC 6.26 X 10*3/uL (4.50-10.00)
[2023-06-11] MEDS: HYDROmorphone 1 MG/ML 1 ML SYRINGE IVP PRN ×2 (10:52→23:44)
[2023-06-11 11:19] LABS: BUN/Creat Ratio 17.29 Ratio (12.00-20.00); Blood Urea Nitrogen 12.1 mg/dL (9.0-27.0); Calcium 8.5 mg/dL (8.7-10.3); Carbon Dioxide 25.5 mmol/L (21.6-31.8); Chloride 105 mmol/L (96-109); Glucose 174 mg/dL (70-110); Potassium 4.1 mmol/L (3.5-5.5); Sodium 141 mmol/L (135-145)
--- NOTE | 2023-06-11 12:03 | P.PN ---
Subjective Progress Note Date: 06/11/23 CHIEF COMPLAINT: Abdominal pain HISTORY OF PRESENT ILLNESS: Patient complains of left-sided abdominal pain that comes in waves. The pain becomes sharp. Morphine does not controlled pain. She has been having nausea. No further vomiting. She did have a small formed bowel movement this morning. She is having flatus. Abdominal x-ray reported markedly distended bowel loops with air-fluid levels compatible with small bowel obstruction. Afebrile. Elevated blood pressure. WBC 11.6 down to 6.26 hgb 11.5 platelets 284. Nursing staff was unable to place NG tube yesterday. PHYSICAL EXAM: VITAL SIGNS: Reviewed. GENERAL: Well-developed in no acute distress. ABDOMEN: distended. Tenderness to palpation all left side of abdomen and epigastric area. NEUROLOGIC: Alert and oriented. Cranial nerves II through XII grossly intact. ASSESSMENT: 1. Possible Partial small bowel obstruction 2. CT reports dilated fluid filled jejunal loops in the left side of the abdomen distended up to 4.4 cm 3. History of multiple abdominal surgeries PLAN: -Gastrografin enema x-ray ordered for today to evaluate for distal colonic obstruction -Keep patient nothing by mouth -If she has increasing abdominal pain will need to try to place NG tube again -Encouraged patient to increase activity level -Discontinue morphine. And changed to Dilaudid 1 mg IV every 3 hours as needed for better pain control -Continue IV fluids -DVT prophylaxis subcu heparin Physician Civil Engineer note has been reviewed by physician. Signing provider agrees with the documented findings, assessment, and plan of care. I have personally seen and examined the patient, reviewed the STAFF WRITER /PAs history, exam and MDM and agree with the assessment and plan as written. Based on total visit time, I have performed more than 50% of the visit. As above: Patient seen yesterday while she was down in x-ray. Room enema shows no obstruction rectally. Small bowel loops remained dilated. Pain was improved. Patient was refusing nasogastric tube. Keep nothing by mouth. Objective - Vital Signs Vital signs: Vital Signs Temp 98.2 F 06/11/23 08:00 Pulse 73 06/11/23 08:00 Resp 18 06/11/23 08:00 BP 183/74 06/11/23 08:00 Pulse Ox 96 06/11/23 08:00 FiO2 Intake & Output 06/10/23 06/11/2323 18:59 06:59 18:59 Intake Total 815 Balance 815 Weight 86.183 kg Intake: Intake, IV Titration 225 Amount Sodium Chloride 0.9% 1, 225 000 ml @ 75 mls/hr IV . [id number] [facility] Rx#:[id number] Oral 590 Other: Voiding Method Toilet # Voids 2 - Labs CBC & Chem 7: 06/11/23 06:15 06/11/23 06:15 Labs: Abnormal Lab Results - Last 24 Hours (Table) 06/10/23 06/10/23 06/11/23 Range/Units 18:25 22:18 06:31 POC Glucose (mg/dL) 206 H 163 H 172 H (70-110) mg/dL 06/11/23 Range/Units 08:55 POC Glucose (mg/dL) 184 H (70-110) mg/dL
--- NOTE | 2023-06-11 13:05 | FL ---
EXAMINATION TYPE: FL barium enema DATE OF EXAM: 06/11/2023 12:14 PM CLINICAL INDICATION:Female, 68 years old with history of ABDOMINAL PAIN, FOLLOW UP ON POSSIBLE STRICT URE; COMPARISON: CT 06/10/2023 TECHNIQUE: The procedure was explained and patient history elicited. All patient questions were answ ered prior to beginning. Multiple spot fluoroscopic images of the colon were obtained after the recta l administration of liquid barium as the contrast agent. Multiple postprocedural overhead images, w ere obtained and reviewed. Fluoroscopic time: 55 seconds Fluoroscopic images: Radiographs taken: DAP: [id number] FINDINGS: Limited evaluation of the rectum only. No focal stricture visualized. No evidence for extravasation of contrast. No masses visualized. Findi ngs correlate with CT 06/10/2023. IMPRESSION: Limited evaluation of the rectum and sigmoid colon demonstrate no evidence for stricture, no evidence for extravasation or mass.
[2023-06-11] MEDS: ONDANSETRON 4 MG/2 ML VIAL IVP PRN (13:33)
--- NOTE | 2023-06-11 15:55 | P.PN ---
Subjective Progress Note Date: 06/11/23 Principal diagnosis: #1 diagnosis: Small bowel obstruction with resolving higher up in the region and level Associated with nausea and vomiting resistant Computed tomography scan was diagnostic Barium enema was not helpful History of hypertension with hypertensive heart disease History of multiple surgery with the possible adhesion versus hiatal obstruction History of bilateral mastectomy secondary to cancer History of hysterectomy secondary to cervical cancer History of resection of the bowel secondary to colon cancer Left total knee arthroplasty Advanced left hip arthritis. Progress note Date of service 06/11/[address] Siegel. Patient seen today [id number] discussed with the patient the current plan and to be transferred from 5 N. to telemetry floor [facility] in the [facility]*due to need of another medication which could not take it orally due to the small bowel obstruction. Patient has hypertension and was controlled with medication orally included metoprolol 50 mg 3 times a day and clonidine clonidine 0.2 mg twice a day and enalapril 20 mg twice a day she has as well diabetes mellitus type 2 and history of hyperglycemia on oral medication currently with the small bowel obstruction as not be given, replaced by insulin to scale and she is nothing by mouth as well. We'll be starting metoprolol IV 5 mg every 8 hour and adjusting the dose accordingly depend on her blood pressure currently blood pressure was 180-188 systolic patient was not received the metoprolol on the 5 N. and need to be transferred to the floor that can be able to given these medication with the night monitor. No On examination patient is conscious alert oriented she feel dry however she is nothing by mouth by Dr. Lvei and she does not have NG tube they tried and failed. Head was normocephalic and atraumatic pupils equal reactive conjunctiva was pink sclera was nonicteric. Oropharynx she feels dry but she had IV fluid Neck was supple no JVD no thyromegaly no lymphadenopathy trachea midline Chest is clear to auscultation and percussion, absent breasts bilaterally due to resection for cancer Heart she had tachycardia with hypertension as we are going to restart again her beta kellie but could not be done on 5 N. and need to be on 3 souse to complete her medication. Abdomen: Severely distended and tender with light touch and high pH bowel sounds indicated obstruction more than ileus. Extremities: No edema. Pulses Neurologically: Patient had history of seizure disorder and she is taken medication was designed by the neurologist which is Keppra and Tegretol. Currently she is on seizure precaution and we consulted the neurologist Dr. Garcia to see the patient and evaluate for the need of elliptic medication. Patient not seen yet. Assessment Assessment: Primary diagnosis small bowel obstruction Secondary diagnosis hypertension and hypertensive heart disease not controlled. Tachycardia History of seizures disorder also seizures she mentioned approximation of the years or more. Patient on IV fluid Plan: Patient followed by Dr. Levi and his team of nursing practitioner Transfer patient to night monitor for that they able to give her the Lop ressor IV. Continue monitoring blood pressure is well with the enalapril IV Consultation with neurology Dr. Yanez for evaluation of seizure disorder and if needed to be adjusted medication. Further evaluation for the bowel obstruction depend on the patient progressed, Patient may need surgical approach with the scope for adhesion or open incision with exploratory laparotomy S will be up to Dr. Hart and the surgical team Objective - Vital Signs Vital signs: Vital Signs Temp 97.4 F L 06/11/23 13:27 Pulse 91 06/11/23 13:27 Resp 20 06/11/23 13:27 BP 188/72 06/11/23 13:27 Pulse Ox 95 06/11/23 13:27 FiO2 Intake & Output 06/10/23 06/11/23 06/11/23 18:59 06:59 18:59 Intake Total 815 Balance 815 Weight 86.183 kg Intake: Intake, IV Titration 225 Amount Sodium Chloride 0.9% 1, 225 000 ml @ 75 mls/hr IV . [id number] [facility] Rx#:[id number] Oral 590 Other: Voiding Method Toilet # Voids 2 - Labs CBC & Chem 7: 06/11/23 06:15 06/11/23 06:15 Labs: Abnormal Lab Results - Last 24 Hours (Table) 06/10/23 06/10/23 06/11/23 Range/Units 18:25 22:18 06:15 RBC 4.01 L (4.10-5.20) X 10*6/uL Hgb 11.5 L (12.0-15.0) d/dL Hct 36.4 L (37.2-46.3) % MCHC 31.6 L (32.0-37.0) d/dL Glucose (70-110) mg/dL POC Glucose (mg/dL) 206 H 163 H (70-110) mg/dL Calcium (8.7-10.3) mg/dL 06/11/23 06/11/23 06/11/23 Range/Units 06:15 06:31 08:55 RBC (4.10-5.20) X 10*6/uL Hgb (12.0-15.0) d/dL Hct (37.2-46.3) % MCHC (32.0-37.0) d/dL Glucose 174 H (70-110) mg/dL POC Glucose (mg/dL) 172 H 184 H (70-110) mg/dL Calcium 8.5 L (8.7-10.3) mg/dL
[2023-06-11] MEDS: METOPROLOL TARTRATE 5 MG/5 ML VIAL IVP PRN (16:12)
[2023-06-11 16:30] LABS: Glucose,Whole Blood 178 mg/dL (70-110)
[2023-06-11] MEDS ORDERED: levETIRAcetam IV 500 MG/5 ML VIAL IVP STA (17:32)
[2023-06-11] MEDS: levETIRAcetam IV 500 MG/5 ML VIAL IVP SCH (21:15)
[2023-06-11] MEDS: HEPARIN SODIUM,PORCINE 5,000 UNIT/ML 1 ML VIAL SQ SCH (21:16)
[2023-06-11 21:28] LABS: Glucose,Whole Blood 164 mg/dL (70-110)
[2023-06-12] MEDS: SODIUM CHLORIDE 0.9% 1,000 ML IV SCH ×2 (05:36→17:52)
[2023-06-12 06:09] LABS: Glucose,Whole Blood 138 mg/dL (70-110)
[2023-06-12] MEDS: INSULIN REGULAR 100 UNIT/ML VIAL (IV) SQ SCH ×3 (06:13→16:40)
[2023-06-12] MEDS: ENALAPRILAT 1.25 MG/ML 1 ML VIAL IVP PRN ×3 (06:40→20:50)
[2023-06-12] MEDS: HEPARIN SODIUM,PORCINE 5,000 UNIT/ML 1 ML VIAL SQ SCH ×2 (09:00→20:31)
[2023-06-12] MEDS: METOPROLOL TARTRATE 5 MG/5 ML VIAL IVP PRN ×2 (09:00→16:25)
[2023-06-12] MEDS: levETIRAcetam IV 500 MG/5 ML VIAL IVP SCH ×2 (09:01→20:31)
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
[2023-06-12 12:01] LABS: Glucose,Whole Blood 138 mg/dL (70-110)
--- NOTE | 2023-06-12 13:28 | P.PN ---
Subjective Progress Note Date: 06/12/23 CHIEF COMPLAINT: Abdominal pain HISTORY OF PRESENT ILLNESS: Patient reports that her pain is less today. But glass cut off tender on the left side. She is having flatus. And bowel movements. Had nausea earlier. No vomiting. Patient had barium enema reports limited evaluation of the rectum and in sigmoid colon demonstrates no evidence for stricture, no evidence of extravasation or mass. PHYSICAL EXAM: VITAL SIGNS: Reviewed. GENERAL: Well-developed in no acute distress. ABDOMEN: distended. Tenderness to palpation all left side of abdomen NEUROLOGIC: Alert and oriented. Cranial nerves II through XII grossly intact. ASSESSMENT: 1. Possible Partial small bowel obstruction 2. CT reports dilated fluid filled jejunal loops in the left side of the abdomen distended up to 4.4 cm 3. History of multiple abdominal surgeries PLAN: -Further recommendations forthcoming per surgeon -Keep patient nothing by mouth -Encouraged patient to increase activity level -Continue pain management -Continue IV fluids -DVT prophylaxis subcu heparin Physician Music Critic note has been reviewed by physician. Signing provider agrees with the documented findings, assessment, and plan of care. I have personally seen and examined the patient, reviewed the MANUFACTURING DEVELOPMENT ENGINEER /PAs history, exam and MDM and agree with the assessment and plan as written. Based on total visit time, I have performed more than 50% of the visit. As above: Patient still having some abdominal pain. No vomiting. She is hungry. She did have further bowel movements after the barium enema yesterday. Today's x-rays still showed dilated small bowel loops. We'll order small bowel series for tomorrow. This may need to be a limited study given the presence of contrast from the barium enema yesterday. May have ice chips. Objective - Vital Signs Vital signs: Vital Signs Temp 97.6 F 06/12/23 08:00 Pulse 68 06/12/23 10:00 Resp 18 06/12/23 08:00 BP 164/66 06/12/23 10:00 Pulse Ox 94 L 06/12/23 08:00 FiO2 Intake & Output 06/11/23 06/12/23 06/12/23 18:59 06:59 18:59 Other: Voiding Method Toilet Toilet Toilet # Bowel Movements 4 - Labs CBC & Chem 7: 06/11/23 06:15 06/11/23 06:15 Labs: Abnormal Lab Results - Last 24 Hours (Table) 06/11/23 06/11/23 06/11/23 Range/Units 06:15 16:26 21:27 Glucose 174 H (70-110) mg/dL POC Glucose (mg/dL) 178 H 164 H (70-110) mg/dL Calcium 8.5 L (8.7-10.3) mg/dL 06/12/23 Range/Units 06:07 Glucose (70-110) mg/dL POC Glucose (mg/dL) 138 H (70-110) mg/dL Calcium (8.7-10.3) mg/dL
--- NOTE | 2023-06-12 14:23 | XR ---
EXAMINATION TYPE: XR abdomen 2V DATE OF EXAM: 06/12/2023 COMPARISON: 06/11/2023 HISTORY: Pain TECHNIQUE: One view abdominal series FINDINGS: The osseous structures are intact. The bowel gas pattern is nonspecific. Dilated bowel loops remain in the abdomen with contrast seen in the colon. Findings are suggestive of partial small bowel obstru ction. Surgical clips in the right upper quadrant and along the right lateral chest. Postoperative hernia re pair suspected in the pelvis. Bilateral hypertrophic arthropathy of the hips correlate for femoral ac etabular impingement. Hypertrophic and degenerative change of the vertebral column. IMPRESSION: 1. Correlate for partial small bowel obstruction.
[2023-06-12] MEDS ORDERED: KETOROLAC 15 MG/ML 1 ML VIAL IM PRN (16:02)
--- NOTE | 2023-06-12 16:23 | P.PN ---
Subjective Progress Note Date: 06/12/23 Progress note Date of service 06/12/[address] Siegel Patient seen today [id number] as well as discussed with the patient the plan as well as her nurse RN. Patient still having distention of the abdomen was not relieved and tympanitic on percussion and tender on palpation. I did order x-ray of the abdomen which indicating today partial small bowel obstruction. Maximum pain and tenderness with even minimal touch with the possible rebound in the left upper quadrant of the abdomen with the underlying small bowel obstruction with the high pH of the bowel sound. Patient transferred from 5 N.to quality assurance monitor [employer] power 381 because of patient nothing by mouth with the underlying small bowel obstruction and meanwhile her hypertension uncontrolled without the IV metoprolol which we incre ased it today from every 8 hour 5 mg IV push to every 6 hour with the help of control. As today her blood pressure with the every 6 hour drop problem 202/110/to 144/68 with mean arterial pressure 93. Her oxygen saturation between 95% to 94% on room air Order monitored her blood glucose covered with insulin to scale and she is nothing by mouth and currently blood glucose 135 which is fairly well c ontrolled. Patient seen by Dr. Yanez on neurology and he recommended EEG and I did discuss with the patient in detail that's the reason for EEG and to see any spikes to indicate the need for her anticonvulsive medication. He also started her on the Keppra 1000 mg every 12 hours IV piggyback. On examination patient is conscious alert oriented 3 able to ask question and answer. And advised her to continue with the EEG. Correction as her neurologist currently is Dr. Morrow neurologist not Dr. Radford, with the note of Dr. Mol[facility] already. On examination head was normocephalic and atraumatic, pupil was equal reactive, hearing normal to mildly diminished Oropharynx she had 1 tooth on the left upper jaw and to tooth in the right lower jaw uvula midline and no fascial asymmetry. Neck was supple no JVD no thyromegaly no lymphadenopathy trachea midline. Chest was clear to auscultation and percussion. Heart regular sinus rhythm with cardiomegaly with the history of hypertensive h eart disease Abdomen tender on light palpation, bowel sounds arun which indicated to me with obstruction more than ileus. And possibility of adhesion was hydrated considered and x-ray today was still indicating the same and despite that she stated that she had a bowel movement. Extremities no edema positive pulses Neurologically: No seizures through the hospitalization so far and neurology has been seen the patient and started on the medication IV. Assessment: Patient admitted with the main diagnosis small bowel obstruction #2 underlying multiple other medical problem associated with hypertension and hypertensive heart disease History of seizure disorder History of osteoarthritis generalized with the left total knee arthroplasty and arthritis of the left hip. Hyper lipidemia. Patient currently nothing by mouth because of her small bowel obstruction which did not resolve with the consult pain and percussion tympanitic and painless touch of the abdomen. Diabetes mellitus type 2 currently monitored and covered with insulin to scale which is stable. Plan #1 continue the IV fluid proceed with the EEG, and will wait for the Dr. Levi decision for for further investigation or underlying surgical procedure or weight. We'll #2 will continue monitoring her blood sugar as well as blood pressure. Objective - Vital Signs Vital signs: Vital Signs Temp 97.8 F 06/12/23 12:42 Pulse 65 06/12/23 13:30 Resp 18 06/12/23 12:42 BP 144/68 06/12/23 13:30 Pulse Ox 94 L 06/12/23 12:42 FiO2 Intake & Output 06/11/23 06/12/23 06/12/23 18:59 06:59 18:59 Intake Total 0 Balance 0 Intake: Oral 0 Other: Voiding Method Toilet Toilet Toilet # Bowel Movements 4 - Labs CBC & Chem 7: 06/11/23 06:15 06/11/23 06:15 Labs: Abnormal Lab Results - Last 24 Hours (Table) 06/11/23 06/11/23 06/12/23 Range/Units 16:26 21:27 06:07 POC Glucose (mg/dL) 178 H 164 H 138 H (70-110) mg/dL 06/12/23 Range/Units 11:55 POC Glucose (mg/dL) 138 H (70-110) mg/dL
[2023-06-12 16:40] LABS: Glucose,Whole Blood 129 mg/dL (70-110)
[2023-06-12 20:02] LABS: Glucose,Whole Blood 112 mg/dL (70-110)
[2023-06-12] MEDS: HYDROmorphone 1 MG/ML 1 ML SYRINGE IVP PRN (20:29)
[2023-06-13 02:30] LABS: Glucose,Whole Blood 101 mg/dL (70-110)
[2023-06-13] MEDS: SODIUM CHLORIDE 0.9% 1,000 ML IV SCH ×2 (04:38→20:01)
[2023-06-13 06:36] LABS: Glucose,Whole Blood 113 mg/dL (70-110)
[2023-06-13] MEDS: INSULIN REGULAR 100 UNIT/ML VIAL (IV) SQ SCH ×3 (06:38→16:58)
[2023-06-13] MEDS: HEPARIN SODIUM,PORCINE 5,000 UNIT/ML 1 ML VIAL SQ SCH ×2 (09:40→20:05)
[2023-06-13] MEDS: levETIRAcetam IV 500 MG/5 ML VIAL IVP SCH ×2 (09:41→20:04)
--- NOTE | 2023-06-13 11:43 | P.PN ---
Subjective Progress Note Date: 06/13/23 CHIEF COMPLAINT: Abdominal pain HISTORY OF PRESENT ILLNESS: Patient currently has no pain unless she pushes on the left side of her abdomen. Pain is less than it was yesterday. She is having bowel movements and flatus. The stools are loose. She denies any nausea or vomiting. Abdominal x-ray had reported to correlate for partial small bowel obstruction. Afebrile. PHYSICAL EXAM: VITAL SIGNS: Reviewed. GENERAL: Well-developed in no acute distress. ABDOMEN: distended. Tenderness to palpation along the left side of abdomen NEUROLOGIC: Alert and oriented. Cranial nerves II through XII grossly intact. ASSESSMENT: 1. Possible Partial small bowel obstruction 2. CT reports dilated fluid filled jejunal loops in the left side of the abdomen distended up to 4.4 cm 3. History of multiple abdominal surgeries PLAN: -Small bowel follow-through with Gastrografin ordered for further evaluation of partial small bowel obstruction -Keep patient nothing by mouth except for ice chips -Encouraged patient to increase activity level -Continue pain management -Continue IV fluids -DVT prophylaxis subcu heparin Physician Manager Decision Support note has been reviewed by physician. Signing provider agrees with the documented findings, assessment, and plan of care. I have personally seen and examined the patient, reviewed the RECREATIONAL ASSISTANT /PAs history, exam and MDM and agree with the assessment and plan as written. Based on total visit time, I have performed more than 50% of the visit. As above: Patient had what sounds like seizure activity while going downstairs for her small bowel series earlier today. Nasogastric tube was subsequently placed. She says she has no abdominal pain currently. She is still mildly tender left side of abdomen. White blood cell count remains normal. We'll order repeat abdominal x-ray now and again tomorrow morning. If small bowel obstruction persists on imaging we'll proceed with exploratory laparotomy on 06/15 or . Objective - Vital Signs Vital signs: Vital Signs Temp 98.7 F 06/13/23 08:00 Pulse 68 06/13/23 08:00 Resp 18 06/13/23 08:00 BP 183/72 06/13/23 08:00 Pulse Ox 96 06/13/23 08:00 FiO2 Intake & Output 06/12/23 06/13/23 06/13/23 18:59 06:59 18:59 Intake Total 0 Balance 0 Intake: Oral 0 Other: Voiding Method Toilet Toilet Toilet # Voids 2 1 - Labs CBC & Chem 7: 06/13/23 14:28 06/11/23 06:15 Labs: Abnormal Lab Results - Last 24 Hours (Table) 06/12/23 06/12/23 06/12/23 Range/Units 11:55 16:38 19:54 POC Glucose (mg/dL) 138 H 129 H 112 H (70-110) mg/dL 06/13/23 Range/Units 06:35 POC Glucose (mg/dL) 113 H (70-110) mg/dL
[2023-06-13 11:55] LABS: Glucose,Whole Blood 103 mg/dL (70-110)
--- NOTE | 2023-06-13 11:58 | P.PN ---
Subjective Progress Note Date: 06/13/23 Progress note Date of service 06/13/[address] Wood I came to see the patient found that she is in the x-ray department for testing ordered by surgical team small bowel follow-through and subsequently we heard over speakers Ateam was announced and subsequently they called her nurse to come down to the x-ray department probably emergency we don't have any clue at this time what happening and patient in the x-ray department. Patient had still small bowel obstruction and tenderness on the abdomen with light palpation Waiting for results of the small bowel follow-through as well as decision of the surgeon for for further intervention if needed. Her vital signs before sending her to the x-ray was stable except for hypertension which is uncontrolled so far even with IV metoprolol and we will be adding if patient stable TTS clonidine 0.3 mg patch to be applied for 1 week duration. Objective - Vital Signs Vital signs: Vital Signs Temp 98.7 F 06/13/23 08:00 Pulse 68 06/13/23 08:00 Resp 18 06/13/23 08:00 BP 183/72 06/13/23 08:00 Pulse Ox 96 06/13/23 08:00 FiO2 Intake & Output 06/12/23 06/13/23 06/13/23 18:59 06:59 18:59 Intake Total 0 Balance 0 Intake: Oral 0 Other: Voiding Method Toilet Toilet Toilet # Voids 2 1 - Labs CBC & Chem 7: 06/11/23 06:15 06/11/23 06:15 Labs: Abnormal Lab Results - Last 24 Hours (Table) 06/12/23 06/12/23 06/12/23 Range/Units 11:55 16:38 19:54 POC Glucose (mg/dL) 138 H 129 H 112 H (70-110) mg/dL 06/13/23 Range/Units 06:35 POC Glucose (mg/dL) 113 H (70-110) mg/dL
[2023-06-13] MEDS: ENALAPRILAT 1.25 MG/ML 1 ML VIAL IVP PRN (12:15)
[2023-06-13] MEDS: ONDANSETRON 4 MG/2 ML VIAL IVP PRN ×2 (12:16→19:54)
[2023-06-13 12:25] LABS: Glucose,Whole Blood 113 mg/dL (70-110)
--- NOTE | 2023-06-13 12:30 | XR ---
EXAMINATION TYPE: XR chest 1V portable DATE OF EXAM: 06/13/2023 COMPARISON: 06/01/2022 INDICATION: Vomiting aspiration TECHNIQUE: Single frontal view of the chest is obtained. FINDINGS: The heart size is normal. The pulmonary vasculature is normal. The lungs are clear. No contrast is evident within the chest or tracheobronchial tree to suggest asp iration. Contrast is within the stomach related to IMPRESSION: 1. No acute pulmonary process.
[2023-06-13] MEDS ORDERED: LORazepam 2 MG/ML INJ IV STA (12:31)
--- NOTE | 2023-06-13 12:46 | FL ---
EXAMINATION TYPE: FL Gastrografin small bowel follow through, discontinued DATE OF EXAM: 06/13/2023 CLINICAL HISTORY: 68-year-old female abdominal pain, follow-up with small bowel obstruction TECHNIQUE: A single contrast small bowel follow through is attempted utilizing Gastrografin. COMPARISON: CT 06/10/2023 No fluoroscopy was utilized. Only a single seasonal driver image is provided. FINDINGS: Band Saw Filer image of the abdomen shows residual retained enema contrast throughout the colon. Dilated small bowel loops remain measuring up to 5.3 cm, unchanged. Coils from prior mesh repair overlie the pelvi s. IMPRESSION: 1. Residual enema contrast remains scattered throughout the colon. Small bowel loops remain dilated u p to 5.3 cm. 2. Gastrografin small bowel follow-through had to be discontinued. Technologist notes: pt given 6 oz gastrografin with 3 ozs of water. pt vomited and coughed. pt then postured and rolled her eyes back. Emergency response was activated and the patient was sent back to her room.
[2023-06-13] MEDS: cloNIDine 0.3 MG/24HR PATCH TRANSDERM SCH (12:57)
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
[2023-06-13] MEDS ORDERED: PHENYTOIN SODIUM INJ 1,000 MG in SODIUM CHLORIDE 0.9% 100 ML IVPB STA (13:13)
--- NOTE | 2023-06-13 13:32 | XR ---
EXAMINATION TYPE: XR abdomen 1V DATE OF EXAM: 06/13/2023 COMPARISON: 06/13/2023 HISTORY: NG tube placement TECHNIQUE: One view abdominal series FINDINGS: Contrast within the stomach is seen. Likely is contrast within dilated small bowel loops. Surgical cl ips are seen overlying the right upper quadrant and right lateral chest wall. No definite consolidati on the lung bases. Tip of the NG tube appears the level of the gastric body. Hypertrophic and degener ative change of the spine. IMPRESSION: 1. NG tube seen with the tip at the level of the gastric body. 2. Correlate for small bowel obstruction.
[2023-06-13] MEDS: METOPROLOL TARTRATE 5 MG/5 ML VIAL IVP PRN ×2 (14:40→19:53)
[2023-06-13 14:51] LABS: Basophils % (A) 0 %; Eosinophils # (A) 0.1 k/uL (0-0.7); Eosinophils % (A) 1 %; HCT 37.9 % (34.0-46.0); Lymphocytes # (A) 1.6 k/uL (1.0-4.8); Lymphocytes % (A) 26 %; MCH 30.3 pg (25.0-35.0); MCHC 34.1 g/dL (31.0-37.0); MCV 88.6 fL (80.0-100.0); Mean Platelet Volume 7.3; Monocytes # (A) 0.4 k/uL (0-1.0); Monocytes % (A) 6 %; Neutrophils # (A) 4.1 k/uL (1.3-7.7); Neutrophils % (A) 66 %; Platelet Count 293 k/uL (150-450); RBC 4.28 m/uL (3.80-5.40); RDW 13.1 % (11.5-15.5); WBC 6.2 k/uL (3.8-10.6)
--- NOTE | 2023-06-13 16:12 | XR ---
EXAMINATION TYPE: XR abdomen 1V DATE OF EXAM: 06/13/2023 Comparison: Earlier today Clinical History: 68-year-old female Follow-up SBO Findings: NG tube is present. Small amount of oral contrast material noted within the stomach. Small bowel loop s were dilated currently measuring up to 4.9 cm. Scattered colonic air and residual minimal contrast remains throughout the colon. Supine imaging limited for assessment of free air. Impression: Small bowel loops dilated up to 4.9 cm versus 5.3 cm just prior to the attempted small bowel follow-t hrough. NG tube in place.
[2023-06-13 16:44] LABS: Glucose,Whole Blood 149 mg/dL (70-110)
--- NOTE | 2023-06-13 18:26 | P.PN ---
Subjective Progress Note Date: 06/13/23 Progress note Date of service 06/13/2023 Dictation by Patient seen today [id number] on the second visit as she seen this afternoon where she went to x-ray department to have small bowel series follow-through and subsequently she had a reaction and they called A- team and at the same time cold with the nurse taking care of her on the floor. And I went down to see the patient to the x-ray department and I was told her that patient already send through a tunnel through the floor, return to the floor as well as the patient and at that time found that she was A- team and meanwhile the thoughts of quitting the patient as I arrived patient was conscious alert oriented and she had severe vagal stimulation when the started to do the small bowel with the drinking she could not swallow and cough up the material problem with shortness of breath but she is stable her blood pressure and respiratory rate. With the her abdominal exam was high-pitched bowel and chest was normal breath sounds and with the underlying high up small bowel obstruction. This afternoon I did see the patient again at 6:14 PM, I found out that Dr. Hart did see the patient he put NG tube through her nose and he will be checking again the x-ray of the abdomen which was done today as well and found that small bowel obstruction, patient on intermittent suction. Her blood pressure still elevated and we order Catapres TTS 0.3 mg to be applied that once a week to maintain control for blood pressure. Patient was on clonidine by mouth twice a day 0.2 mg as outpatient. Still the blood pressure 1 8170 and we are going to start hydralazine 10 mg IM every 4 hour when necessary for blood pressure 180 and above. Patient seen and evaluated her daughter at bedside she able to communicate freely and no shortness of breath. On the physical exam Patient conscious alert oriented 3 no cough or expectoration and no shortness of breath. Vital sign at 4:00 her temperature 98.3 F oral and the pulse rate 72 and respira tory rate 17 normal breath sounds and her blood pressure was ranging between 210/75 with a mean 120 and the repeat 190/98 After the Catapres started her blood pressure 176/75 with the intermittent inc reased to the 200 and we will be starting her on hydralazine 10 mg every 4 hour urine the blood pressure above 180 systolic. Head was normocephalic and atraumatic pupil was equal reactive oropharynx was negative no changes Neck was supple no JVD no thyromegaly no lymphadenopathy trachea midline Chest was clear to auscultation percussion and her oxygen saturation maintained at 96% on room air Heart regular sinus rhythm Abdomen could not handle touching her abdomen with severe pain stent over 10 at this time. And the high-pitched bowel sounds no edema Extremities no edema and positive pulses positive pulses. Neurological he stable and no evidence of seizure Laboratory: WBC improved from the admission on 06/10 23 was 11.6 , currently white count is 6.2 hemoglobin 13 and platelet count 293. Her renal function on admission stable however check tomorrow BMP and magnesium level. Assessment: Acute small bowel obstruction Resistant hypertension Diabetes mellitus2 Patient nothing by mouth. Seizure disorder Plan: #1 was started hydralazine 10 mg every 4 hour when necessary for systolic blood pressure 180. Tomorrow will be evaluated in with the x-ray and Dr. Levi will evaluate for any surgical intervention. She is having now the NG tube with suction. Objective - Vital Signs Vital signs: Vital Signs Temp 98.3 F 06/13/23 16:06 Pulse 72 06/13/23 16:06 Resp 17 06/13/23 16:06 BP 176/75 06/13/23 17:53 Pulse Ox 96 06/13/23 16:06 FiO2 Intake & Output 06/12/23 06/13/23 06/13/23 18:59 06:59 18:59 Intake Total 0 Balance 0 Weight 86.183 kg Intake: Oral 0 Other: Voiding Method Toilet Toilet Toilet # Voids 2 1 # Bowel Movements 1 - Labs CBC & Chem 7: 06/13/23 14:28 06/11/23 06:15 Labs: Abnormal Lab Results - Last 24 Hours (Table) 06/12/23 06/13/23 06/13/23 Range/Units 19:54 06:35 12:22 POC Glucose (mg/dL) 112 H 113 H 113 H (70-110) mg/dL 06/13/23 Range/Units 16:42 POC Glucose (mg/dL) 149 H (70-110) mg/dL
--- NOTE | 2023-06-13 18:53 | EEG ---
ELECTROENCEPHALOGRAM REPORT PREAMBLE: This is a 68-year-old female with history of seizure disorder since childhood, came with small bowel obstruction. The patient has been on Keppra 1000 mg b.i.d., and Tegretol 600 mg b.i.d. Because of being n.p.o., not able to receive her Tegretol. The patient is on Keppra at this time only. EEG FINDINGS: This is a 21-channel digital EEG recorded with video component, utilizing 10/20 International System with referential and bipolar montages. Background consists of moderately well-developed and regulated, predominantly low-voltage fast frequency beta activity seen in bihemispheric region. Some myogenic activity was seen in the frontal region. Photic driving response was seen with some flash frequencies. During middle and later part of the study, there were 9 episodes of paroxysmal high-amplitude generalized spike and slow wave at 3 Hz seen, lasting for about 1 to 2 seconds each. Clinically, there was sometimes myoclonic-type jerk noticed with this ictal activity. No electrographic seizure was recorded. Different stages of sleep were not clearly seen. IMPRESSION: This is an abnormal EEG due to presence of paroxysmal high-amplitude generalized spike and slow wave activity at 3 Hz, lasting for about 1 to 2 seconds seen about 9 times during the study. Clinically, some myoclonic-type jerk was noted associated with this ictal pattern. No electrographic seizure was recorded. Overall, this pattern can be seen with patients with primary generalized epilepsy. This EEG also implies a tendency for generalized tonic-clonic seizures. MMHILDA / SHAHID: [id number] / MTDChantal
[2023-06-13] MEDS: HYDROmorphone 1 MG/ML 1 ML SYRINGE IVP PRN (19:50)
[2023-06-13] MEDS: hydrALAZINE HCL 20 MG/ML 1 ML VIAL IVP PRN (19:54)
[2023-06-13 20:21] LABS: Glucose,Whole Blood 136 mg/dL (70-110)
[2023-06-13] MEDS: PHENYTOIN SODIUM INJ 200 MG in SODIUM CHLORIDE 0.9% 36 ML IVPB SCH (20:45)
[2023-06-14] MEDS: hydrALAZINE HCL 20 MG/ML 1 ML VIAL IVP PRN ×3 (00:38→19:53)
[2023-06-14] MEDS: HYDROmorphone 1 MG/ML 1 ML SYRINGE IVP PRN ×3 (01:21→18:31)
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
[2023-06-14] MEDS: SODIUM CHLORIDE 0.9% 1,000 ML IV SCH ×2 (05:25→19:52)
[2023-06-14 06:06] LABS: Glucose,Whole Blood 130 mg/dL (70-110)
[2023-06-14] MEDS: INSULIN REGULAR 100 UNIT/ML VIAL (IV) SQ SCH ×3 (06:17→17:21)
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
[2023-06-14] MEDS: levETIRAcetam IV 500 MG/5 ML VIAL IVP SCH ×2 (09:47→19:53)
[2023-06-14] MEDS: PHENYTOIN SODIUM INJ 200 MG in SODIUM CHLORIDE 0.9% 36 ML IVPB SCH ×2 (09:47→21:13)
[2023-06-14] MEDS: HEPARIN SODIUM,PORCINE 5,000 UNIT/ML 1 ML VIAL SQ SCH ×2 (09:47→19:52)
[2023-06-14] MEDS: ENALAPRILAT 1.25 MG/ML 1 ML VIAL IVP PRN ×2 (09:49→18:37)
[2023-06-14 09:57] LABS: HCT 37.9 % (34.0-46.0); HGB 12.2 gm/dL (11.4-16.0); Hypochromasia Moderate; MCH 30.6 pg (25.0-35.0); MCHC 32.3 g/dL (31.0-37.0); Mean Platelet Volume 8.8; Platelet Count 228 k/uL (150-450); RDW 13.4 % (11.5-15.5); WBC 7.9 k/uL (3.8-10.6)
--- NOTE | 2023-06-14 10:08 | P.PN ---
Subjective Progress Note Date: 06/14/23 (Surgery) CHIEF COMPLAINT: Abdominal pain HISTORY OF PRESENT ILLNESS: Patient currently has no pain unless she pushes on the left side of her abdomen. Pain is less than it was yesterday. She is having bowel movements and flatus. The stools are loose. She denies any nausea or vomiting. Abdominal x-ray had reported to correlate for partial small bowel obstruction. Afebrile. PHYSICAL EXAM: VITAL SIGNS: Reviewed. GENERAL: Well-developed in no acute distress. ABDOMEN: distended. Tenderness to palpation along the left side of abdomen NEUROLOGIC: Alert and oriented. Cranial nerves II through XII grossly intact. ASSESSMENT: 1. Possible Partial small bowel obstruction 2. CT reports dilated fluid filled jejunal loops in the left side of the abdomen distended up to 4.4 cm 3. History of multiple abdominal surgeries PLAN: -Small bowel follow-through with Gastrografin ordered for further evaluation of partial small bowel obstruction -Keep patient nothing by mouth except for ice chips -Encouraged patient to increase activity level -Continue pain management -Continue IV fluids -DVT prophylaxis subcu heparin Physician Labor Relations Consultant note has been reviewed by physician. Signing provider agrees with the documented findings, assessment, and plan of care. I have personally seen and examined the patient, reviewed the BELL [facility]ET /PAs history, exam and MDM and agree with the assessment and plan as written. Based on total visit time, I have performed more than 50% of the visit. As above: Patient had what sounds like seizure activity while going downstairs for her small bowel series earlier today. Nasogastric tube was subsequently placed. She says she has no abdominal pain currently. She is still mildly tender left side of abdomen. White blood cell count remains normal. Repeat abdominal x-ray this morning . If small bowel obstruction persists on imaging we'll proceed with exploratory laparotomy early next week. Objective - Vital Signs Vital signs: Vital Signs Temp 98.8 F 06/14/23 03:59 Pulse 81 06/14/23 03:59 Resp 17 06/14/23 03:59 BP 148/64 06/14/23 03:59 Pulse Ox 99 06/14/23 03:59 FiO2 Intake & Output 06/13/23 06/14/23 06/14/23 18:59 06:59 18:59 Weight 86.183 kg Other: Voiding Method Toilet Bedside Commode # Voids 1 # Bowel Movements 1 1 - Labs CBC & Chem 7: 06/13/23 14:28 06/11/23 06:15 Labs: Abnormal Lab Results - Last 24 Hours (Table) 06/13/23 06/13/23 06/13/23 Range/Units 12:22 16:42 20:20 POC Glucose (mg/dL) 113 H 149 H 136 H (70-110) mg/dL 06/14/23 Range/Units 06:01 POC Glucose (mg/dL) 130 H (70-110) mg/dL
[2023-06-14 10:34] LABS: African American GFR (CKD) >90 (>60 ml/min/1.73 sqM); Anion Gap 18 mmol/L; Blood Urea Nitrogen 8 mg/dL (7-17); Calcium 8.4 mg/dL (8.4-10.2); Carbon Dioxide 15 mmol/L (22-30); Chloride 110 mmol/L (98-107); Glucose 126 mg/dL (74-99); Magnesium 1.4 mg/dL (1.6-2.3); Non-African American GFR(CKD) >90 (>60 ml/min/1.73 sqM); Potassium 3.9 mmol/L (3.5-5.1); Sodium 143 mmol/L (137-145)
[2023-06-14 11:43] LABS: Glucose,Whole Blood 126 mg/dL (70-110)
--- NOTE | 2023-06-14 14:31 | P.PN ---
Subjective Progress Note Date: 06/14/23 (Acute small bowel obstruction) Progress note Date of service 06/14/2023. Dictation by Dr. Robbin Gunderson Patient seen and evaluated [id number] Stated that NG tube in place with the return, colored brown with the acid Hemotene probably was diffuse gastritis We'll start Protonix twice a day 40 mg IV and obtain laboratory tomorrow Marlo Gayle hemoglobin and hematocrit stabilized. Patient indicate with NG tube she have still pain in the abdomen however the severe pain was touch has been mildly improved and she had high pitch positive bowel sound no nausea no vomiting and the NG tube in place. Laboratory Her sodium today 143, potassium 3.9, chloride 110 and carbon dioxide is 15 probably patient hyperventilating, creatinine 0.5 to, GFR for non- more than 90, fasting blood sugar 126 which is good control for diabetes mellitus her magnesium is low and her calcium is 8.4 and will supply the magnesium IV piggyback 1 g and recheck tomorrow. On the magnesium and electrolytes as well as CBC with differential. Her vital signs today indicating temperature 98.5 F oral pulse rate 78 bpm and regular sinus, respiratory rate 18/m nonlabored and her blood pressure was ranging between 148/64 earlier while sleeping at 4 AM however currently is 173/71 her oxygen saturation 96% on room air. On exam: Head was normocephalic and atraumatic pupils equal reactive conjunctiva spending sclera nonicteric. NG tube in place with acidemic teen return. Neck was supple and no JVD no thyromegaly no lymphadenopathy Chest was clear no wheezes no rhonchi's Heart was regular sinus rhythm and no arrhythmias receiving medication IV and IM Abdomen severely distended temperature attic on percussion and high pitch bowel sounds which indicating obstruction of the small bowel Extremities she had stocking and positive pulses no edema. Neurologically: Stable. Urology did and Dilantin. Program with the thought that may be yesterday in her event in the x-ray department could be having seizure. Assessment: #1 the small bowel obstruction did not resolve. #2 she had NG tube with intermittent suction the present of acid Hemotene and probable gastritis with NG tube suction intermittent. #3 hypertension it's responding to the current plan and we will still continue the same and will see tomorrow if we need to readjust the underlying blood pressure however we understand 1 syndrome release of the bowel obstruction her blood pressure will be dropping significantly and we will be adjusting medication again. #4 diabetes mellitus has been controlled well. Plan: #1 start Protonix 40 mg twice a day for 2 days and by Friday hopefully he can cut it down to once a day with the presence of acid Hemotene and probably diffuse on gastritis #2 continue with the program for blood pressure control #3 blood glucose has been fairly well controlled and patient is nothing by mouth covered with insulin to scale line #4 waiting for the surgical decision. Objective - Vital Signs Vital signs: Vital Signs Temp 98.5 F 06/14/23 09:45 Pulse 75 06/14/23 11:45 Resp 17 06/14/23 11:45 BP 173/71 06/14/23 11:45 Pulse Ox 96 06/14/23 11:45 FiO2 Intake & Output 06/13/23 06/14/23 06/14/23 18:59 06:59 18:59 Weight 86.183 kg Other: Voiding Method Toilet Bedside Commode Bedside Commode # Voids 1 # Bowel Movements 1 1 - Labs CBC & Chem 7: 06/13/23 14:28 06/14/23 07:56 Labs: Abnormal Lab Results - Last 24 Hours (Table) 06/13/23 06/13/23 06/14/23 Range/Units 16:42 20:20 06:01 Chloride (98-107) mmol/L Carbon Dioxide (22-30) mmol/L Glucose (74-99) mg/dL POC Glucose (mg/dL) 149 H 136 H 130 H (70-110) mg/dL Magnesium (1.6-2.3) mg/dL 06/14/23 06/14/23 Range/Units 07:56 11:41 Chloride 110 H (98-107) mmol/L Carbon Dioxide 15 L (22-30) mmol/L Glucose 126 H (74-99) mg/dL POC Glucose (mg/dL) 126 H (70-110) mg/dL Magnesium 1.4 L (1.6-2.3) mg/dL
[2023-06-14] MEDS ORDERED: MAGNESIUM SULFATE-D5W PMX 1 GM in DEXTROSE/WATER 1 100ML.BAG IVPB ONE (15:30)
[2023-06-14 16:49] LABS: Glucose,Whole Blood 130 mg/dL (70-110)
[2023-06-14 17:49] LABS: MCV 94.6 fL (80.0-100.0)
[2023-06-14] MEDS: METOPROLOL TARTRATE 5 MG/5 ML VIAL IVP PRN (18:55)
[2023-06-14] MEDS: PANTOPRAZOLE 40 MG/10 ML VIAL IVP SCH (19:53)
[2023-06-14 20:10] LABS: Glucose,Whole Blood 125 mg/dL (70-110)
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
[2023-06-14] MEDS: methylPREDNISolone SOD SUCCI 40 MG/ML 1 ML VIAL IV SCH (21:45)
[2023-06-14] MEDS: ALPRAZolam 0.25 MG TAB PO PRN (23:29)
[2023-06-15] MEDS: ENALAPRILAT 1.25 MG/ML 1 ML VIAL IVP PRN ×2 (00:20→06:15)
[2023-06-15] MEDS: diphenhydrAMINE 2% CREAM 28.4 GM TUBE TOPICAL PRN (00:20)
[2023-06-15] MEDS: METOPROLOL TARTRATE 5 MG/5 ML VIAL IVP PRN ×2 (00:20→06:15)
[2023-06-15 06:05] LABS: Glucose,Whole Blood 120 mg/dL (70-110)
[2023-06-15] MEDS: INSULIN REGULAR 100 UNIT/ML VIAL (IV) SQ SCH ×3 (06:14→17:58)
[2023-06-15] MEDS: HYDROmorphone 1 MG/ML 1 ML SYRINGE IVP PRN (06:15)
[2023-06-15] MEDS: hydrALAZINE HCL 20 MG/ML 1 ML VIAL IVP PRN (06:15)
[2023-06-15 09:14] LABS: Basophils % (A) 1 %; Eosinophils # (A) 0.1 k/uL (0-0.7); Eosinophils % (A) 1 %; HCT 39.2 % (34.0-46.0); HGB 12.7 gm/dL (11.4-16.0); Lymphocytes # (A) 1.8 k/uL (1.0-4.8); Lymphocytes % (A) 24 %; MCH 29.4 pg (25.0-35.0); MCHC 32.5 g/dL (31.0-37.0); MCV 90.6 fL (80.0-100.0); Mean Platelet Volume 7.4; Monocytes # (A) 0.4 k/uL (0-1.0); Monocytes % (A) 6 %; Neutrophils # (A) 5.3 k/uL (1.3-7.7); Neutrophils % (A) 68 %; Platelet Count 328 k/uL (150-450); RBC 4.33 m/uL (3.80-5.40); RDW 13.3 % (11.5-15.5); WBC 7.7 k/uL (3.8-10.6)
[2023-06-15] MEDS: PHENYTOIN SODIUM INJ 200 MG in SODIUM CHLORIDE 0.9% 36 ML IVPB SCH ×2 (09:19→22:37)
[2023-06-15] MEDS: PANTOPRAZOLE 40 MG/10 ML VIAL IVP SCH ×2 (09:19→21:30)
[2023-06-15] MEDS: methylPREDNISolone SOD SUCCI 40 MG/ML 1 ML VIAL IV SCH (09:19)
[2023-06-15] MEDS: levETIRAcetam IV 500 MG/5 ML VIAL IVP SCH ×2 (09:19→21:30)
[2023-06-15] MEDS ORDERED: hydrALAZINE HCL 20 MG/ML 1 ML VIAL IVP STA (09:26)
[2023-06-15] MEDS ORDERED: hydrALAZINE HCL 20 MG/ML 1 ML VIAL IM PRN (09:33)
[2023-06-15 09:51] LABS: African American GFR (CKD) >90 (>60 ml/min/1.73 sqM); Anion Gap 15 mmol/L; Blood Urea Nitrogen 7 mg/dL (7-17); Calcium 8.9 mg/dL (8.4-10.2); Carbon Dioxide 19 mmol/L (22-30); Chloride 109 mmol/L (98-107); Glucose 114 mg/dL (74-99); Magnesium 1.5 mg/dL (1.6-2.3); Non-African American GFR(CKD) >90 (>60 ml/min/1.73 sqM); Potassium 4.5 mmol/L (3.5-5.1); Sodium 143 mmol/L (137-145)
--- NOTE | 2023-06-15 11:35 | P.PN ---
Progress Note - Text Progress Note Date: 06/15/23 Patient seen this morning on rounds. Still having abdominal bloating and nausea. Nasogastric tube remains in place. Small amount of flatus. X-rays from Friday and again yesterday reviewed. Patient with persistent small bowel dilation. Options reviewed with patient. Proceed with exploratory laparotomy, possible bowel resection at this time for suspected bleeding, infection, scarring, recurrent obstruction, ileus possible need for bowel resection and/or ostomy, hernia, respiratory and cardiac complications reviewed. She understands and wishes to proceed.
--- NOTE | 2023-06-15 12:02 | P.PN ---
Subjective Progress Note Date: 06/15/23 (Small bowel obstruction) Progress note Date of service 06/15/[address] Siegel. Patient had several complaints during the night, itching, anxiety, and she stated that she is scared, her blood pressure was also elevated significantly as he called me on the per flexor and medication was ordered including Xanax under the tongue as the patient nothing by mouth and addressed the medication IM and IV. On seeing the patient today the patient already seen by Dr. Levi and he decided for on the results small bowel obstruction for exploratory laparotomy as patient has been no relief with the use waiting and observation with the multiple possibility as he mentioned in his note. Patient found that she had hypomagnesemia yesterday and covered with 1 g of magnesium still low and will start her on 1 g of magnesium as well. I did discuss with the patient and her daughter at bedside And advised that blood pressure will be dropping once a relief in the distention of the abdomen and the pain the nausea no vomiting and she had NG tube was acidemic teen started on pantoprazole as well. Her vital sign at the time of the ground temperature 90.8 F oral heart rate 82 sinus regular, respiratory rate 18/m and blood pressure 179/70 with a mean blood pressure 106 and oxygen on the room air 97% saturation. On the exam: She is conscious alert oriented 3 able to communicate freely no neurological finding. Head was normocephalic and atraumatic, she is nothing by mouth, Neck was supple no JVD no thyromegaly no lymphadenopathy trachea midline. Chest was clear to auscultation and percussion and she had bilateral mastectomy for breast cancer in the past. Abdomen extremely distended and area of high pitch sounds with the tender on palpation even light palpation. She had previous colon cancer and resection in the past and probably multiple adhesions or volvulus. Extremities no edema positive pulses. Neurologically stable. Assessment: #1 acute small bowel obstruction not resolving and no sign of improvement with waiting #2 resistant hypertension could be associated the abdominal distention and pain multiple medication has been used. #3 anxiety associated with the current condition of her illness. #4 seizure disorder has been supported with [facility] and seen by neurology. Plan: #[address] Hart for surgical decision was exploratory laparotomy #2 probably was released her blood pressure wall drop gradually and her medication on when necessary and hypertension will still continue to be monitored and adjusted medication accordingly. #3 patient still nothing by mouth with NG tube in was acidemic teen. Objective - Vital Signs Vital signs: Vital Signs Temp 98 F 06/15/23 09:10 Pulse 82 06/15/23 09:10 Resp 18 06/15/23 09:10 BP 179/70 06/15/23 09:40 Pulse Ox 97 06/15/23 09:10 FiO2 Intake & Output 06/14/23 06/15/23 06/15/23 19:59 06:59 18:59 Other: Voiding Method Bedside Commode # Voids - Labs CBC & Chem 7: 06/15/23 07:19 06/15/23 07:19 Labs: Abnormal Lab Results - Last 24 Hours (Table) 06/14/23 06/14/23 06/15/23 Range/Units 16:47 20:09 06:02 Chloride (98-107) mmol/L Carbon Dioxide (22-30) mmol/L Glucose (74-99) mg/dL POC Glucose (mg/dL) 130 H 125 H 120 H (70-110) mg/dL Magnesium (1.6-2.3) mg/dL 06/15/23 Range/Units 07:19 Chloride 109 H (98-107) mmol/L Carbon Dioxide 19 L (22-30) mmol/L Glucose 114 H (74-99) mg/dL POC Glucose (mg/dL) (70-110) mg/dL Magnesium 1.5 L (1.6-2.3) mg/dL
[2023-06-15] MEDS: HEPARIN SODIUM,PORCINE 5,000 UNIT/ML 1 ML VIAL SQ SCH ×2 (12:15→21:30)
[2023-06-15] MEDS ORDERED: SODIUM CHLORIDE 0.9% 50 ML with ceFAZolin 2,000 MG IV ONE ×2 (12:18)
[2023-06-15] MEDS ORDERED: PHENYLEPHRINE 10 MG/ML 5 ML VIAL ONE (12:18)
[2023-06-15] MEDS ORDERED: SUCCINYLCHOLINE CHLORIDE 200 MG/10 ML VIAL IV ONE (12:18)
[2023-06-15] MEDS ORDERED: SODIUM CHLORIDE 0.9% 1,000 ML IV ONE (12:18)
[2023-06-15] MEDS ORDERED: MIDAZOLAM 2 MG/2 ML VIAL ONE (12:18)
[2023-06-15] MEDS ORDERED: NEOSTIGMINE 1 MG/ML 10 ML VIAL ONE (12:18)
[2023-06-15] MEDS ORDERED: GLYCOPYRROLATE 0.2 MG/ML 2 ML VIAL ONE (12:18)
[2023-06-15] MEDS ORDERED: fentaNYL (PF) 50 MCG/ML 2 ML AMP ONE (12:18)
[2023-06-15] MEDS ORDERED: PROPOFOL 10 MG/ML 20 ML VIAL IV ONE (12:18)
[2023-06-15] MEDS ORDERED: ROCURONIUM 10 MG/ML (5 ML VIAL) IV ONE (12:18)
[2023-06-15] MEDS ORDERED: metroNIDAZOLE-NS PMX 500 MG in SALINE 1 100ML.BAG IVPB STA (12:53)
[2023-06-15] MEDS ORDERED: MAGNESIUM SULFATE-D5W PMX 1 GM in DEXTROSE/WATER 1 100ML.BAG IVPB ONE (13:00)
[2023-06-15] MEDS ORDERED: SODIUM CHLORIDE 0.9% 100 ML with metroNIDAZOLE-NS PMX 500 MG IV ONE ×2 (13:03)
[2023-06-15] MEDS ORDERED: LACTATED RINGERS 1,000 ML IV ONE ×2 (14:02→15:52)
--- NOTE | 2023-06-15 14:03 | P.OP ---
Date of Procedure: 06/15/23 Procedure(s) Performed: PREOPERATIVE DIAGNOSIS: Small bowel obstruction POSTOPERATIVE DIAGNOSIS: Small bowel obstruction secondary to intra-abdominal adhesions PROCEDURE: Exploratory laparotomy with extensive lysis of adhesions, partial omentectomy SURGEON: Gurmeet EBL: 20 Domingo ANESTHESIA: Gen. COMPLICATIONS: None OPERATIVE PROCEDURE: Patient placed on the operating table in the supine position. The patient was placed under general anesthesia. The abdomen was prepped and draped sterilely. A vertical incision was made extending from the mid upper abdomen to the infraumbilical location. Entrance into the peritoneal cavity occurred superiorly. Patient had a large amount of adhesions between the omentum and the pelvis. There were a lot of adhesions between the bowel as well. Extensive lysis of adhesions took place at that time. This occurred both sharply and with cautery. No serosal tears were seen. The transition point was in the distal jejunum. Distal small bowel was completely collapsed. Some of the adhesions between the ileum and the pelvis were left in place. The ascending transverse and descending colon were well-visualized. The cecum and previous colorectal anastomosis was not visualized because of dense adhesions. A portion of the omentum was excised as it appeared somewhat ischemic after our dissection. Irrigation of the abdomen took place. The midline fascia was then reapproximated using 3 separate double-stranded #1 PDS sutures. The cutaneous tissues closed using 3-0 Vicryl sutures. Skin closed using sandor. Sterile dressings applied. DISPOSITION: Stable to recovery room
[2023-06-15] MEDS: SODIUM CHLORIDE 0.9% 1,000 ML IV SCH (14:10)
[2023-06-15] MEDS ORDERED: HYDROmorphone 0.5 MG/0.5 ML SYRINGE IVP ONE ×2 (14:13→14:30)
[2023-06-15] MEDS: ONDANSETRON 4 MG/2 ML VIAL IVP PRN (14:19)
[2023-06-15] MEDS ORDERED: HYDROmorphone 1 MG/ML 1 ML SYRINGE IVP ONE ×2 (14:20)
[2023-06-15 14:29] LABS: Glucose,Whole Blood 166 mg/dL (70-110)
[2023-06-15] MEDS ORDERED: ONDANSETRON 4 MG/2 ML VIAL IVP PRN (15:27)
[2023-06-15] MEDS ORDERED: NALOXONE 0.4 MG/ML 1 ML VIAL IV PRN (15:27)
[2023-06-15] MEDS: PHENYLEPHRINE-0.9% NACL SYG 1,000 MCG/10 ML SYRINGE IVP ONE ×10 (15:30→16:20)
--- NOTE | 2023-06-15 15:36 | P.ANPRN ---
Procedure Note - Anesthesia - Epidural/Spinal Epidural Continuous Date of Procedure: 06/15/23 Procedure Start Time: 15:10 Procedure Stop Time: 15:17 Location of Patient: PreOp Indication: Acute Post-Operative Pain, Requested by Surgeon Sedation Type: Sedate with meaningful contact maintained Preparation: Sterile Dressing Position: Sitting Catheter: Indwelling Needle Guage: 18 Blood Aspirated: No Pain Paresthesia on Injection Noted: No Events: Uneventful and Well Tolerated (T8-T9 level , one attempt , NAHEED 8 CM , and Cath at 13 CM.)
[2023-06-15] MEDS: VASOPRESSIN 20 UNIT/ML 1 ML VIAL IV ONE ×2 (16:30→16:40)
[2023-06-15] MEDS: ROPIVACAINE 250 MG, HYDROMORPHONE (PF) 5 MG in SODIUM CHLORIDE 0.9% 200 ML EPIDURAL PRN (17:01)
[2023-06-15 17:28] LABS: Glucose,Whole Blood 194 mg/dL (70-110)
[2023-06-15] MEDS ORDERED: ONDANSETRON 4 MG/2 ML VIAL IVP ONE (17:55)
[2023-06-15] MEDS ORDERED: LACTATED RINGERS 1,000 ML IV SCH (17:55)
[2023-06-15] MEDS ORDERED: DEXAMETHASONE SOD PHOSPHATE 4 MG/ML 1 ML VIAL IV ONE (17:55)
[2023-06-15] MEDS: ACETAMINOPHEN IV (For NPO) 1,000 MG in EMPTY BAG 1 BAG IVPB SCH (18:04)
[2023-06-15 23:50] LABS: Glucose,Whole Blood 202 mg/dL (70-110)
[2023-06-16] MEDS: ACETAMINOPHEN IV (For NPO) 1,000 MG in EMPTY BAG 1 BAG IVPB SCH ×4 (00:38→18:57)
[2023-06-16] MEDS: SODIUM CHLORIDE 0.9% 1,000 ML IV SCH ×2 (06:04→18:58)
--- NOTE | 2023-06-16 06:29 | P.PN ---
Progress Note - Text Progress Note Date: 06/16/23 Patient was seen and evaluated at bedside. Postop day # 1 status post Exploratory laparotomy with extensive lysis of adhesions, partial omentectomy . Patient epidural solution started at 6 mL per hour, last night increase it to 8 mL per hour. Last night she was given 8 mL of 2% preservative-free lidocaine as a loading dose around 8:30 PM as patient complaining pain over the incisional area. Patient is comfortably lying on the bed. Rated pain levels are 2 out of 10 in severity. Moving extremities well without any difficulty. He denied any red flag symptoms, pain over the catheter site. Physical exam: Vital signs: stable, afebrile Catheter site: Clean, and intact Dressing. no tenderness over the catheter area. Moving lower extremities without difficulty. She is receiving heparin 5000 units s/c every 12 hours for DVT prophylaxis. Assessment: Acute postoperative pain secondary to Exploratory laparotomy with extensive lysis of adhesions, partial omentectomy Plan: Continue epidural infusion solution of Ropivacaine 0.1% and Dilaudid 20 g per ml at the rate of 8 mL per hour. We will continue epidural catheter 2 more day unless primary team planned to send the patient home then we will discontinue. Call anesthesia as needed.
[2023-06-16] MEDS ORDERED: HYDROmorphone 0.5 MG/0.5 ML SYRINGE IVP PRN (07:00)
[2023-06-16 07:10] LABS: Glucose,Whole Blood 142 mg/dL (70-110)
[2023-06-16] MEDS: INSULIN REGULAR 100 UNIT/ML VIAL (IV) SQ SCH ×3 (07:12→18:43)
[2023-06-16] MEDS: ROPIVACAINE 250 MG, HYDROMORPHONE (PF) 5 MG in SODIUM CHLORIDE 0.9% 200 ML EPIDURAL PRN (07:15)
[2023-06-16] MEDS: PANTOPRAZOLE 40 MG/10 ML VIAL IVP SCH ×2 (10:48→20:23)
[2023-06-16] MEDS: levETIRAcetam IV 500 MG/5 ML VIAL IVP SCH ×2 (10:48→20:23)
[2023-06-16] MEDS: HEPARIN SODIUM,PORCINE 5,000 UNIT/ML 1 ML VIAL SQ SCH ×2 (10:49→20:23)
--- NOTE | 2023-06-16 11:09 | P.CNPUL ---
History of Present Illness Consult date: 06/16/23 Requesting physician: Flynn Siegel Reason for consult: other Chief complaint: ICU management. History of present illness: Pulmonary/critical care consult dated 06/16/2023. This is a 68-year-old female seen today in the intensive care unit, room 257. The patient apparently was admitted to the hospital back on June 10 or abdominal pain. The patient was found have a small bowel obstruction. Today's postop day #1, status post exploratory laparotomy, extensive lysis of adhesions, and partial omentectomy. The surgery was done by Dr. Levi. Currently, the patient seemed be doing relatively well. She is on 3 L of oxygen. She's getting saline at 75 mL an hour. An NG tube in. A pain pump is available for her, in terms of pain control. We encourage her to do the incentive spirometry, every hour, and I notice, there is not one at the bedside, so I asked the nurse to order one. Laboratory data today includes a glucose of 142. From yesterday, white count was 7.7, hemoglobin 12.7, and platelet count was normal. Sodium 143, potassium 4.5, chlorides 109, CO2 19, anion gap 15, BUN 7, creatinine 0.59. Magnesium was 1.5. No recent chest x-ray. The patient is currently on Flagyl. Review of Systems REVIEW OF SYSTEMS: CONSTITUTIONAL: [Negative.] NEUROLOGIC: [ Negative.] HEENT: [ Negative.] CARDIAC: [Negative.] PULMONARY: [Negative.] GI: Abdominal pain. : [Negative.] RHEUMATOLOGIC: [ Negative.] IMMUNOLOGIC: [ Negative.] ENDOCRINE: [Negative. ] DERMATOLOGIC: [Negative.] Past Medical History Past Medical History: Cancer, CVA/TIA, Diabetes Mellitus, GERD/Reflux, Hyperlipidemia, Hypertension, Osteoarthritis (OA), Pneumonia, Seizure Disorder Additional Past Medical History / Comment(s): breast/colon/ovarian,uterine CA, no bp in rt arm. told she had a stroke 03/2014 "blood clot in back of head". hx of head injury 3rd grade, pt states she has "slow thinking process"and seizures started after injury. -last seizure couple years ago, hx back pain, brain aneurysm 2007, menieres disease History of Any Multi-Drug Resistant Organisms: None Reported Past Surgical History: Adenoidectomy, Appendectomy, Bladder Surgery, Bowel Resection, Breast Surgery, Section, Cholecystectomy, Hernia Repair, Hysterectomy, Joint Replacement, Tonsillectomy Additional Past Surgical History / Comment(s): manpreet. mastectomy , manpreet BREAST BX, MANPREET CATARACT SX, BLADDER SUSPENSION, bowel resection x2 d/t ca, left total knee repl. Past Anesthesia/Blood Transfusion Reactions: Postoperative Nausea & Vomiting (PONV) Past Psychological History: Anxiety, Depression Smoking Status: Never smoker Past Alcohol Use History: None Reported Past Drug Use History: None Reported - Past Family History Mother Family Medical History: Cancer Father Family Medical History: Cancer Medications and Allergies Home Medications Medication Instructions Recorded Confirmed Type levETIRAcetam [Keppra] 1,000 mg PO BID 12/16/13 06/10/23 History Atorvastatin [Lipitor] 20 mg PO HS 04/21/14 06/10/23 History Enalapril [Vasotec] 20 mg PO BID 06/07/21 06/10/23 History Metoprolol Tartrate [Lopressor] 50 mg PO TID 06/07/21 06/10/23 History amLODIPine [Norvasc] 10 mg PO HS 06/07/21 06/10/23 History carBAMazepine [carBAMazepine ER] 600 mg PO BID 11/13/21 06/10/23 History PARoxetine [Paxil] 10 mg PO DAILY 01/18/22 06/10/23 History hydroCHLOROthiazide 25 mg PO DAILY 01/18/22 06/10/23 History Aspirin 325 mg PO HS 06/10/23 06/10/23 History Dapagliflozin Propanediol [Farxiga] 10 mg PO DIRECTED 06/10/23 06/10/23 History Diphenoxylate HCl/Atropine 2 tab PO QID PRN 06/10/23 06/10/23 History [Lomotil 2.5-0.025 mg Tablet] Ergocalciferol [Vitamin D2 (1250 1,250 mcg PO WE 06/10/23 06/10/23 History Mcg = 64575 Iu)] Fluticasone Nasal Barry [Flonase 1 - 2 spray EA NOSTRIL DAILY PRN 06/10/23 06/10/23 History Nasal Barry] Ibuprofen [Motrin] 800 mg PO Q8H PRN 06/10/23 06/10/23 History Insulin Regular, Human [Novolin R] See Protocol SQ AC-TID 06/10/23 06/10/23 History Pioglitazone [Actos] 30 mg PO DAILY 06/10/23 06/10/23 History cloNIDine HCL [Catapres] 0.2 mg PO TID 06/10/23 06/10/23 History glipiZIDE [Glucotrol] 10 mg PO BID 06/10/23 06/10/23 History hydrALAZINE HCL [Apresoline] 50 mg PO TID 06/10/23 06/10/23 History Allergies Allergy/AdvReac Type Severity Reaction Status Date / Time chlorhexidine Allergy Itching Verified 06/10/23 12:44 Mushroom Allergy Itching Verified 06/10/23 12:44 Physical Exam Osteopathic Statement: *. No significant issues noted on an osteopathic structural exam other than those noted in the History and Physical/Consult. Vitals: Vital Signs Temp Pulse Pulse Resp BP BP Pulse Ox 06/16/23 10:30 84 16 96 06/16/23 10:00 82 16 130/52 96 06/16/23 09:30 80 16 92 L 06/16/23 09:00 75 16 135/50 98 06/16/23 08:03 97 06/16/23 08:00 98.3 F 69 16 128/53 97 06/16/23 07:30 74 135/52 98 06/16/23 07:00 70 16 90/58 96 06/16/23 06:30 68 11 L 135/56 98 06/16/23 06:00 67 11 L 135/64 97 06/16/23 05:30 75 16 134/52 97 06/16/23 05:00 75 20 120/58 95 06/16/23 04:30 78 13 129/50 96 06/16/23 04:00 98.8 F 72 13 123/49 96 06/16/23 03:30 83 127/45 90 L 06/16/23 03:15 80 127/45 87 L 06/16/23 03:00 80 15 124/48 86 L 06/16/23 02:45 16 124/48 95 06/16/23 02:30 67 120/55 95 06/16/23 02:15 75 120/55 94 L 06/16/23 02:00 70 14 124/55 96 06/16/23 01:45 75 124/55 95 06/16/23 01:30 75 125/50 93 L 06/16/23 01:15 125/50 95 06/16/23 01:00 76 15 133/54 96 06/16/23 00:45 90 13 133/54 96 06/16/23 00:30 86 111/60 95 06/16/23 00:15 111/60 95 06/16/23 00:00 85 73 16 115/46 96 06/15/23 23:45 89 115/46 88 L 06/15/23 23:30 86 161/48 90 L 06/15/23 23:15 90 161/48 92 L 06/15/23 23:00 92 17 153/58 96 06/15/23 22:45 83 153/58 95 06/15/23 22:30 86 168/62 94 L 06/15/23 22:15 82 168/62 95 06/15/23 22:00 86 15 158/64 96 06/15/23 21:47 87 158/64 96 06/15/23 21:45 84 37 H 158/64 96 06/15/23 21:30 90 15 163/63 96 06/15/23 21:15 81 146/64 96 06/15/23 21:00 79 152/57 96 06/15/23 20:45 74 137/56 96 06/15/23 20:30 72 14 119/49 96 06/15/23 20:15 64 13 124/49 96 06/15/23 20:00 99.4 F 60 73 15 113/44 95 06/15/23 19:45 58 L 14 105/40 96 06/15/23 19:30 58 L 14 106/45 96 06/15/23 19:15 61 12 104/45 96 06/15/23 19:00 96 18 164/69 97 06/15/23 18:45 96 17 198/77 96 06/15/23 18:30 85 12 182/80 97 06/15/23 18:15 91 14 169/77 97 06/15/23 18:00 88 20 180/78 96 06/15/23 17:45 99.7 F H 87 21 177/99 98 06/15/23 16:59 73 16 119/56 97 06/15/23 16:50 68 16 123/57 97 06/15/23 16:40 62 16 111/53 97 06/15/23 16:30 64 16 100/59 98 06/15/23 16:15 60 16 83/40 98 06/15/23 16:03 56 L 16 80/41 98 06/15/23 15:43 57 L 16 89/49 98 06/15/23 15:37 64 16 98/45 95 06/15/23 15:30 76 24 97/44 95 06/15/23 15:20 87 24 112/56 95 06/15/23 15:10 93 24 189/92 95 06/15/23 15:00 98 24 183/76 96 06/15/23 14:45 97 24 188/90 96 06/15/23 14:30 98 24 189/80 96 06/15/23 14:15 92 24 185/79 96 06/15/23 14:06 97.9 F 86 24 176/74 96 06/15/23 11:20 83 17 171/77 97 Intake and Output 06/15/23 06/16/23 06/16/23 22:59 06:59 14:59 Intake Total 1575 800 300 Output Total 830 350 220 Balance 745 450 80 Intake: IV 1475 800 300 ACETAMINOPHEN IV (For NPO 100 200 ) 1,000 mg In Empty Bag 1 bag @ 400 mls/hr IVPB Q6HR YESI Rx#:[id number] Sodium Chloride 0.9% 1, 375 600 300 000 ml @ 75 mls/hr IV . [id number] YESI Rx#:[id number] Intake, IV Titration 100 Amount ACETAMINOPHEN IV (For NPO 100 ) 1,000 mg In Empty Bag 1 bag @ 400 mls/hr IVPB Q6HR YESI Rx#:[id number] Output: Urine 830 350 220 Other: Voiding Method Indwelling Catheter Indwelling Catheter Weight 89.358 kg No acute distress, oriented 3. NG tube in place. Currently on 3 L by nasal cannula. HEENT examination is grossly unremarkable. Mucous membranes are moist. No oral lesions. Neck supple. Full range of motion. No adenopathy thyromegaly or neck vein distention. Cardiovascular examination reveals regular rhythm rate. S1-S2 normal. No S3 or S4. No discernible murmur noted. Heart sounds are distant. Heart rate 84 bpm. Lungs reveal minimal scattered rhonchi. No wheezes. No crackles. Breath sounds are equal. Saturations are 97%. Abdomen soft, without bowel sounds. Abdomen tender. Extremities are intact. No cyanosis clubbing or edema. Skin is without rash or lesion. Neurologic examination is brief but nonfocal. Results - Laboratory Findings CBC and BMP: 06/15/23 07:19 06/15/23 07:19 Abnormal lab findings: Abnormal Labs 06/10/23 06/10/23 06/10/23 07:17 07:17 07:17 WBC 11.6 H RBC Hgb Hct MCHC Neutrophils # 9.8 H Chloride Carbon Dioxide BUN 22 H Glucose 281 H POC Glucose (mg/dL) Calcium Magnesium Alkaline Phosphatase 155 H Urine Protein Trace H 06/10/23 06/10/23 06/11/23 18:25 22:18 06:15 WBC RBC 4.01 L Hgb 11.5 L Hct 36.4 L MCHC 31.6 L Neutrophils # Chloride Carbon Dioxide BUN Glucose POC Glucose (mg/dL) 206 H 163 H Calcium Magnesium Alkaline Phosphatase Urine Protein 06/11/23 06/11/23 06/11/23 06:15 06:31 08:55 WBC RBC Hgb Hct MCHC Neutrophils # Chloride Carbon Dioxide BUN Glucose 174 H POC Glucose (mg/dL) 172 H 184 H Calcium 8.5 L Magnesium Alkaline Phosphatase Urine Protein 06/11/23 06/11/23 06/12/23 16:26 21:27 06:07 WBC RBC Hgb Hct MCHC Neutrophils # Chloride Carbon Dioxide BUN Glucose POC Glucose (mg/dL) 178 H 164 H 138 H Calcium Magnesium Alkaline Phosphatase Urine Protein 06/12/23 06/12/23 06/12/23 11:55 16:38 19:54 WBC RBC Hgb Hct MCHC Neutrophils # Chloride Carbon Dioxide BUN Glucose POC Glucose (mg/dL) 138 H 129 H 112 H Calcium Magnesium Alkaline Phosphatase Urine Protein 06/13/23 06/13/23 06/13/23 06:35 12:22 16:42 WBC RBC Hgb Hct MCHC Neutrophils # Chloride Carbon Dioxide BUN Glucose POC Glucose (mg/dL) 113 H 113 H 149 H Calcium Magnesium Alkaline Phosphatase Urine Protein 06/13/23 06/14/23 06/14/23 20:20 06:01 07:56 WBC RBC Hgb Hct MCHC Neutrophils # Chloride 110 H Carbon Dioxide 15 L BUN Glucose 126 H POC Glucose (mg/dL) 136 H 130 H Calcium Magnesium 1.4 L Alkaline Phosphatase Urine Protein 06/14/23 06/14/23 06/14/23 11:41 16:47 20:09 WBC RBC Hgb Hct MCHC Neutrophils # Chloride Carbon Dioxide BUN Glucose POC Glucose (mg/dL) 126 H 130 H 125 H Calcium Magnesium Alkaline Phosphatase Urine Protein 06/15/23 06/15/23 06/15/23 06:02 07:19 14:27 WBC RBC Hgb Hct MCHC Neutrophils # Chloride 109 H Carbon Dioxide 19 L BUN Glucose 114 H POC Glucose (mg/dL) 120 H 166 H Calcium Magnesium 1.5 L Alkaline Phosphatase Urine Protein 06/15/23 06/15/23 06/16/23 17:27 23:47 07:08 WBC RBC Hgb Hct MCHC Neutrophils # Chloride Carbon Dioxide BUN Glucose POC Glucose (mg/dL) 194 H 202 H 142 H Calcium Magnesium Alkaline Phosphatase Urine Protein Assessment and Plan Assessment: Postop day #1, status post exploratory laparotomy, extensive lysis of adhesions, and partial omentectomy, for small bowel obstruction. Postoperative hypertension, treated with a pain pump, clonidine patch, and hydralazine, resolved. History of CVA. History of diabetes mellitus. History of gastroesophageal reflux disease. History of hyperlipidemia. History of hypertension. History of osteoarthritis. History of breast cancer. History of uterine cancer. Plan: Plan dated 06/16/2023. The patient is seen in the intensive care unit, room 257. She's currently resting comfortably. She is on 3 L of oxygen. Is getting saline at 75 mL an hour. Today is postoperative day #1. Labs, x-rays, and medications are reviewed. We encourage the patient to deep breathe, cough, and clear secretions, and as well, we recommended incentive spirometer, to be used hourly, while the patient is awake. We will continue to follow. The patient continues on Flagyl. No additional recommendations are made. Her blood pressure is under much better control. Her last 2 blood pressures are 135/50, and 130/52. Time with Patient: Greater than 30
[2023-06-16 11:29] LABS: Glucose,Whole Blood 139 mg/dL (70-110)
--- NOTE | 2023-06-16 11:37 | P.PN ---
Subjective Progress Note Date: 06/16/23 CHIEF COMPLAINT: SBO HISTORY OF PRESENT ILLNESS: Patient is postop day #1 status post exploratory laparotomy with extensive lysis of adhesions and partial omentectomy. Patient currently ICU after having postoperative hypertension. Blood pressure has improved. Her pain is controlled. She has epidural in place. She denies any nausea. Has NG tube in place with minimal output. No bowel activity. Af ebrile. Labs for today pending PHYSICAL EXAM: VITAL SIGNS: Reviewed. GENERAL: Well-developed in no acute distress. ABDOMEN: Soft. Mildly distended. Incisional dressing blood saturation noted distally. NEUROLOGIC: Alert and oriented. Cranial nerves II through XII grossly intact. ASSESSMENT: 1. Small bowel obstruction secondary to intra-abdominal adhesions. Status post exploratory laparotomy with extensive lysis of adhesions and partial omentectomy PLAN: -Continue epidural for pain control -Continue Ralph catheter -Continue NG tube for decompression -Keep patient nothing by mouth -Incentive spirometer ordered -Psychologist Research Assistant consulted for ICU management and BP management -DVT prophylaxis subcu heparin Physician Flying Teacher note has been reviewed by physician. Signing provider agrees with the documented findings, assessment, and plan of care. I have personally seen and examined the patient, reviewed the SILVER SERVICE WAITER /PAs history, exam and MDM and agree with the assessment and plan as written. Based on total visit time, I have performed more than 50% of the visit. As above: Patient doing better today. Pain is controlled. No bowel function. Keep NG tube to suction. May have ice chips and occasional popsicles. Increase activity. Objective - Vital Signs Vital signs: Vital Signs Temp 98.8 F 06/16/23 04:00 Pulse 70 06/16/23 07:00 Resp 16 06/16/23 07:00 BP 90/58 06/16/23 07:00 Pulse Ox 97 06/16/23 08:03 FiO2 Intake & Output 06/15/23 06/16/23 06/16/23 18:59 06:59 18:59 Intake Total 2825 1200 75 Output Total 715 650 45 Balance 2110 550 30 Weight 89.358 kg Intake: IV 2725 1200 75 ACETAMINOPHEN IV (For NPO 300 ) 1,000 mg In Empty Bag 1 bag @ 400 mls/hr IVPB Q6HR [facility] Rx#:[id number] Sodium Chloride 0.9% 1, 75 900 75 000 ml @ 75 mls/hr IV . [id number] [facility] Rx#:[id number] Intake, IV Titration 100 Amount ACETAMINOPHEN IV (For NPO 100 ) 1,000 mg In Empty Bag 1 bag @ 400 mls/hr IVPB Q6HR [facility] Rx#:[id number] Output: Urine 690 650 45 Estimated Blood Loss 25 Other: Voiding Method Indwelling Catheter Indwelling Catheter - Labs CBC & Chem 7: 06/16/23 11:49 06/16/23 11:49 Labs: Abnormal Lab Results - Last 24 Hours (Table) 06/15/23 06/15/23 06/15/23 Range/Units 14:27 17:27 23:47 POC Glucose (mg/dL) 166 H 194 H 202 H (70-110) mg/dL 06/16/23 Range/Units 07:08 POC Glucose (mg/dL) 142 H (70-110) mg/dL
[2023-06-16] MEDS: PHENYTOIN SODIUM INJ 200 MG in SODIUM CHLORIDE 0.9% 36 ML IVPB SCH ×2 (11:42→22:12)
[2023-06-16 12:11] LABS: Basophils % (A) 0 %; Eosinophils # (A) 0.1 k/uL (0-0.7); Eosinophils % (A) 2 %; HCT 33.6 % (34.0-46.0); HGB 10.8 gm/dL (11.4-16.0); Hypochromasia Slight; Lymphocytes # (A) 1.2 k/uL (1.0-4.8); Lymphocytes % (A) 17 %; MCH 29.6 pg (25.0-35.0); MCHC 32.3 g/dL (31.0-37.0); MCV 91.6 fL (80.0-100.0); Mean Platelet Volume 8.4; Monocytes # (A) 0.5 k/uL (0-1.0); Monocytes % (A) 7 %; Neutrophils % (A) 72 %; RBC 3.67 m/uL (3.80-5.40); RDW 13.9 % (11.5-15.5); WBC 6.9 k/uL (3.8-10.6)
[2023-06-16 12:15] LABS: African American GFR (CKD) >90 (>60 ml/min/1.73 sqM); Anion Gap 9 mmol/L; Blood Urea Nitrogen 13 mg/dL (7-17); Calcium 7.6 mg/dL (8.4-10.2); Carbon Dioxide 17 mmol/L (22-30); Chloride 113 mmol/L (98-107); Glucose 134 mg/dL (74-99); Non-African American GFR(CKD) >90 (>60 ml/min/1.73 sqM); Platelet Count 160 k/uL (150-450); Sodium 139 mmol/L (137-145)
[2023-06-16 12:29] LABS: Potassium 4.4 mmol/L (3.5-5.1)
--- NOTE | 2023-06-16 15:48 | P.PN ---
Subjective Progress Note Date: 06/16/23 (Small bowel obstruction secondary to adhesion) Progress note date of service 06/16/[address] Wood. Patient seen in ICU room 257. 1. Patient seen [id number] and discussed with the patient Patient underwent on 06/15/[address] Hart surgeon laparotomy with small bowel adhesion. Dr. Levi note indicating significant adhesion in different direction. Today patient is conscious alert oriented 3 she has NG tube in place and a Ralph catheter in ICU and has been seen by Dr. Carballo. Pulmonary and critical care. Patient had persistent low CO2 and currently is [address] Carballo 10 answer that question Her temperature 95.2, pulse rate 77 regular 8/m Her respiratory rate ranged between 2112 her blood pressure currently stable on 147/60 mean blood pressure 93. Oxygen saturation 96 on 2 L/m Laboratory WBC 6.9, hemoglobin 10.8, hematocrit 33.6, platelet count 160 Chemistry: Sodium 139, potassium 4.4, chloride 113, carbon dioxide 17, BUN 13, creatinine 0.56 and GFR more than 90, blood glucose 139 monitored covered with insulin, her calcium is 7.6 which is low. Conscious alert oriented [address] With the acidemic teen. Head was normocephalic and atraumatic Pupil is equal reactive Neck was supple no JVD no thyromegaly no lymphadenopathy, Chest was clear to auscultation and percussion with history of COPD in the past with mild kyphosis on the central of the thorax and she had bilateral mastectomy. Heart regular sinus rhythm blood pressure currently improved post surgery however was prior to the surgery uncontrolled in spite of all medication which given to her on when necessary basis Abdomen still operator helper and distended and NG tube in place, Ralph catheter in place for INR. Extremities: Antithrombotic stocking, positive pulses. No edema. Neurologically stable general condition Assessment: #1 status post exploratory laparotomy, with the small bowel obstruction, secondary to adhesion, #2 history of carbon dioxide in the lower then expected unclear etiology we'll ask pulmonary for help with that #3 diabetes mellitus type 2 controlled #4 bilateral breast mastectomy for breast cancer #5 history of COPD #6 hypertension with hypertensive heart disease currently improved. Plan: We'll check tomorrow BMP and magnesium with the underlying history of hypomagnesemia. Mild drop in the hemoglobin due to surgery expected. Continue supportive care Objective - Vital Signs Vital signs: Vital Signs Temp 98.2 F 06/16/23 12:00 Pulse 77 06/16/23 12:00 Resp 12 06/16/23 12:00 BP 147/60 06/16/23 12:00 Pulse Ox 96 06/16/23 12:00 FiO2 Intake & Output 06/15/23 06/16/23 06/16/23 18:59 06:59 18:59 Intake Total 2825 1200 480 Output Total 715 650 425 Balance 2110 550 55 Weight 89.358 kg 89.358 kg Intake: IV 2725 1200 480 ACETAMINOPHEN IV (For NPO 300 ) 1,000 mg In Empty Bag 1 bag @ 400 mls/hr IVPB Q6HR [facility] Rx#:[id number] Invasive Line 4 20 Invasive Line 5 10 Sodium Chloride 0.9% 1, 75 900 450 000 ml @ 75 mls/hr IV . [id number] [facility] Rx#:[id number] Intake, IV Titration 100 Amount ACETAMINOPHEN IV (For NPO 100 ) 1,000 mg In Empty Bag 1 bag @ 400 mls/hr IVPB Q6HR [facility] Rx#:[id number] Output: Gastric Drainage 100 Urine 690 650 325 Estimated Blood Loss 25 Other: Voiding Method Indwelling Catheter Indwelling Catheter Indwelling Catheter # Bowel Movements 0 - Labs CBC & Chem 7: 06/16/23 11:49 06/16/23 11:49 Labs: Abnormal Lab Results - Last 24 Hours (Table) 06/15/23 06/15/23 06/16/23 Range/Units 17:27 23:47 07:08 RBC (3.80-5.40) m/uL Hgb (11.4-16.0) gm/dL Hct (34.0-46.0) % Chloride (98-107) mmol/L Carbon Dioxide (22-30) mmol/L Glucose (74-99) mg/dL POC Glucose (mg/dL) 194 H 202 H 142 H (70-110) mg/dL Calcium (8.4-10.2) mg/dL 06/16/23 06/16/23 06/16/23 Range/Units 11:26 11:49 11:49 RBC 3.67 L (3.80-5.40) m/uL Hgb 10.8 L (11.4-16.0) gm/dL Hct 33.6 L (34.0-46.0) % Chloride 113 H (98-107) mmol/L Carbon Dioxide 17 L (22-30) mmol/L Glucose 134 H (74-99) mg/dL POC Glucose (mg/dL) 139 H (70-110) mg/dL Calcium 7.6 L (8.4-10.2) mg/dL
[2023-06-16 17:43] LABS: Glucose,Whole Blood 150 mg/dL (70-110)
[2023-06-17] MEDS: ACETAMINOPHEN IV (For NPO) 1,000 MG in EMPTY BAG 1 BAG IVPB SCH ×3 (00:29→12:00)
[2023-06-17] MEDS ORDERED: methylPREDNISolone SOD SUCCI 40 MG/ML 1 ML VIAL IV STA (02:14)
[2023-06-17 06:08] LABS: Basophils % (A) 0 %; Eosinophils # (A) 0.1 k/uL (0-0.7); Eosinophils % (A) 2 %; HCT 33.6 % (34.0-46.0); Hypochromasia Slight; Lymphocytes # (A) 0.7 k/uL (1.0-4.8); Lymphocytes % (A) 9 %; MCH 30.1 pg (25.0-35.0); MCHC 32.6 g/dL (31.0-37.0); MCV 92.6 fL (80.0-100.0); Mean Platelet Volume 7.3; Monocytes # (A) 0.4 k/uL (0-1.0); Monocytes % (A) 5 %; Neutrophils # (A) 6.5 k/uL (1.3-7.7); Neutrophils % (A) 83 %; Platelet Count 247 k/uL (150-450); RBC 3.63 m/uL (3.80-5.40); RDW 13.5 % (11.5-15.5); WBC 7.8 k/uL (3.8-10.6)
[2023-06-17] MEDS: SODIUM CHLORIDE 0.9% 1,000 ML IV SCH ×2 (06:17→18:50)
[2023-06-17 06:25] LABS: African American GFR (CKD) >90 (>60 ml/min/1.73 sqM); Anion Gap 16 mmol/L; Blood Urea Nitrogen 6 mg/dL (7-17); Calcium 8.1 mg/dL (8.4-10.2); Carbon Dioxide 17 mmol/L (22-30); Chloride 109 mmol/L (98-107); Glucose 178 mg/dL (74-99); Magnesium 1.4 mg/dL (1.6-2.3); Non-African American GFR(CKD) >90 (>60 ml/min/1.73 sqM); Potassium 3.8 mmol/L (3.5-5.1); Sodium 142 mmol/L (137-145)
[2023-06-17 07:03] LABS: Glucose,Whole Blood 205 mg/dL (70-110)
[2023-06-17] MEDS: ROPIVACAINE 250 MG, HYDROMORPHONE (PF) 5 MG in SODIUM CHLORIDE 0.9% 200 ML EPIDURAL PRN (07:15)
[2023-06-17] MEDS: diphenhydrAMINE 2% CREAM 28.4 GM TUBE TOPICAL PRN (07:51)
[2023-06-17] MEDS: INSULIN REGULAR 100 UNIT/ML VIAL (IV) SQ SCH ×3 (08:21→16:29)
[2023-06-17] MEDS: PANTOPRAZOLE 40 MG/10 ML VIAL IVP SCH ×2 (08:22→20:48)
[2023-06-17] MEDS: levETIRAcetam IV 500 MG/5 ML VIAL IVP SCH ×2 (08:23→20:49)
[2023-06-17] MEDS: ALPRAZolam 0.25 MG TAB PO PRN (08:23)
[2023-06-17] MEDS: HEPARIN SODIUM,PORCINE 5,000 UNIT/ML 1 ML VIAL SQ SCH ×2 (08:23→20:48)
[2023-06-17] MEDS ORDERED: diphenhydrAMINE 25 MG CAP PO PRN (09:13)
[2023-06-17] MEDS: PHENYTOIN SODIUM INJ 200 MG in SODIUM CHLORIDE 0.9% 36 ML IVPB SCH ×2 (09:48→21:15)
--- NOTE | 2023-06-17 10:49 | P.PN ---
Subjective Progress Note Date: 06/17/23 CHIEF COMPLAINT: SBO HISTORY OF PRESENT ILLNESS: Patient is postop day #2 status post exploratory laparotomy with extensive lysis of adhesions and partial omentectomy. Patient is currently in the ICU. Abdominal pain is controlled with epidural. NG tube 400 mL bilious output through the night and 100 mL output this morning. No bowel activity. Denies any nausea. She does complain of itching throughout her body. Afebrile. WBC 7.8 hgb 11 plt 247 Na 142 K 3.8 Cr 0.46 PHYSICAL EXAM: VITAL SIGNS: Reviewed. GENERAL: Well-developed in no acute distress. ABDOMEN: Soft. Mildly distended. Incisional dressing blood saturation noted distally. Dressing pulled back incision with minimal drainage noted distally on the skin. No drainage able to be expressed. Minimal tenderness with palpation of the incision site and left-sided. NEUROLOGIC: Alert and oriented. Cranial nerves II through XII grossly intact. ASSESSMENT: 1. Small bowel obstruction secondary to intra-abdominal adhesions. Status post exploratory laparotomy with extensive lysis of adhesions and partial omentectomy PLAN: -Continue epidural for pain control -Continue Ralph catheter -Continue NG tube for decompression -Keep patient nothing by mouth except ice chips and popsicles -Surgical dressing change by nursing staff -Incentive spirometer ordered -Benadryl IV ordered for itching -DVT prophylaxis subcu heparin Physician Field Research Assistant note has been reviewed by physician. Signing provider agrees with the documented findings, assessment, and plan of care. I have personally seen and examined the patient, reviewed the MAINTENANCE MECHANIC SUPERVISOR /PAs history, exam and MDM and agree with the assessment and plan as written. Based on total visit time, I have performed more than 50% of the visit. As above: The patient doing fairly well. Complaining of some itching. We'll see if anesthesia can switch epidural medications. Keep NG tube. Ambulate. Objective - Vital Signs Vital signs: Vital Signs Temp 98.1 F 06/17/23 08:00 Pulse 83 06/17/23 09:00 Resp 23 06/17/23 09:00 BP 164/64 06/17/23 07:00 Pulse Ox 95 06/17/23 09:00 FiO2 Intake & Output 06/16/23 06/17/23 06/17/23 18:59 06:59 18:59 Intake Total 950 996 416 Output Total 1205 1175 495 Balance -255 -179 -79 Weight 89.358 kg 84.1 kg Intake: IV 950 996 356 Invasive Line 4 30 30 10 Invasive Line 5 20 30 10 Phenytoin Sodium Inj 200 36 36 mg In Sodium Chloride 0.9 % 36 ml @ 80 mls/hr IVPB Q12HR [facility] Rx#:[id number] Sodium Chloride 0.9% 1, 900 900 300 000 ml @ 75 mls/hr IV . [id number] [facility] Rx#:[id number] Oral 60 Output: Gastric Drainage 500 100 Urine 705 1175 395 Other: Voiding Method Indwelling Catheter Indwelling Catheter Indwelling Catheter # Bowel Movements 0 0 0 - Labs CBC & Chem 7: 06/17/23 05:34 06/17/23 05:34 Labs: Abnormal Lab Results - Last 24 Hours (Table) 06/16/23 06/16/23 06/16/23 Range/Units 11:26 11:49 11:49 RBC 3.67 L (3.80-5.40) m/uL Hgb 10.8 L (11.4-16.0) gm/dL Hct 33.6 L (34.0-46.0) % Lymphocytes # (1.0-4.8) k/uL Chloride 113 H (98-107) mmol/L Carbon Dioxide 17 L (22-30) mmol/L BUN (7-17) mg/dL Creatinine (0.52-1.04) mg/dL Glucose 134 H (74-99) mg/dL POC Glucose (mg/dL) 139 H (70-110) mg/dL Calcium 7.6 L (8.4-10.2) mg/dL Magnesium (1.6-2.3) mg/dL 06/16/23 06/17/23 06/17/23 Range/Units 17:42 05:34 05:34 RBC 3.63 L (3.80-5.40) m/uL Hgb 11.0 L (11.4-16.0) gm/dL Hct 33.6 L (34.0-46.0) % Lymphocytes # 0.7 L (1.0-4.8) k/uL Chloride 109 H (98-107) mmol/L Carbon Dioxide 17 L (22-30) mmol/L BUN 6 L (7-17) mg/dL Creatinine 0.46 L (0.52-1.04) mg/dL Glucose 178 H (74-99) mg/dL POC Glucose (mg/dL) 150 H (70-110) mg/dL Calcium 8.1 L (8.4-10.2) mg/dL Magnesium 1.4 L (1.6-2.3) mg/dL 06/17/23 Range/Units 07:02 RBC (3.80-5.40) m/uL Hgb (11.4-16.0) gm/dL Hct (34.0-46.0) % Lymphocytes # (1.0-4.8) k/uL Chloride (98-107) mmol/L Carbon Dioxide (22-30) mmol/L BUN (7-17) mg/dL Creatinine (0.52-1.04) mg/dL Glucose (74-99) mg/dL POC Glucose (mg/dL) 205 H (70-110) mg/dL Calcium (8.4-10.2) mg/dL Magnesium (1.6-2.3) mg/dL
--- NOTE | 2023-06-17 10:53 | P.PN ---
Subjective Progress Note Date: 06/17/23 Principal diagnosis: Abdominal pain. Pulmonary/critical care consult dated 06/16/2023. This is a 68-year-old female seen today in the intensive care unit, room 257. The patient apparently was admitted to the hospital back on June 10 or abdominal pain. The patient was found have a small bowel obstruction. Today's postop day #1, status post exploratory laparotomy, extensive lysis of adhesions, and partial omentectomy. The surgery was done by Dr. Levi. Currently, the patient seemed be doing relatively well. She is on 3 L of oxygen. She's getting saline at 75 mL an hour. An NG tube in. A pain pump is available for her, in terms of pain control. We encourage her to do the incentive spirometry, every hour, and I notice, there is not one at the bedside, so I asked the nurse to order one. Laboratory data today includes a glucose of 142. From yesterday, white count was 7.7, hemoglobin 12.7, and platelet count was normal. Sodium 143, potassium 4.5, chlorides 109, CO2 19, anion gap 15, BUN 7, creatinine 0.59. Magnesium was 1.5. No recent chest x-ray. The patient is currently on Flagyl. Progress note dated 06/17/2023. 68-year-old female seen in consultation yesterday. She seen in room 257, intensive care unit. The patient is postoperative day #2, status post exploratory laparotomy, extensive lysis of adhesions, and partial omentectomy. The patient is currently on oxygen, at 2 L. An NG tube remains in place. She's getting saline at 75 mL an hour. She's doing reasonably well on her incentive spirometer. She is having an apparent reaction to chlorhexidine. I recommend some Benadryl. White count of 7.8, hemoglobin 11, hematocrit 33.6, and a normal platelet count. Sodium 142, potassium 3.8, chlorides 109, CO2 17, anion gap 16, BUN 6, and creatinine 0.46. Calcium is 8.1 with magnesium of 1.4. Objective - Vital Signs Vital signs: Vital Signs Temp 98.1 F 06/17/23 08:00 Pulse 83 06/17/23 09:00 Resp 23 06/17/23 09:00 BP 164/64 06/17/23 07:00 Pulse Ox 95 11/07/23 09:00 FiO2 Intake & Output 06/16/23 06/17/23 06/17/23 18:59 06:59 18:59 Intake Total 950 996 416 Output Total 1205 1175 495 Balance -255 -179 -79 Weight 89.358 kg 84.1 kg Intake: IV 950 996 356 Invasive Line 4 30 30 10 Invasive Line 5 20 30 10 Phenytoin Sodium Inj 200 36 36 mg In Sodium Chloride 0.9 % 36 ml @ 80 mls/hr IVPB Q12HR [facility] Rx#:[id number] Sodium Chloride 0.9% 1, 900 900 300 000 ml @ 75 mls/hr IV . [id number] [facility] Rx#:[id number] Oral 60 Output: Gastric Drainage 500 100 Urine 705 1175 395 Other: Voiding Method Indwelling Catheter Indwelling Catheter Indwelling Catheter # Bowel Movements 0 0 0 - Exam No acute distress, oriented 3. NG tube in place. Currently on room air. HEENT examination is grossly unremarkable. Mucous membranes are moist. No oral lesions. Neck supple. Full range of motion. No adenopathy thyromegaly or neck vein distention. Cardiovascular examination reveals regular rhythm rate. S1-S2 normal. No S3 or S4. No discernible murmur noted. Heart sounds are distant. Heart rate 83 bpm. Lungs reveal minimal scattered rhonchi. No wheezes. No crackles. Breath sounds are equal. Saturations are 95 %. Abdomen soft, without bowel sounds. Abdomen tender. Extremities are intact. No cyanosis clubbing or edema. Skin is without rash or lesion. Neurologic examination is brief but nonfocal. - Labs CBC & Chem 7: 06/17/23 05:34 06/17/23 05:34 Labs: Abnormal Lab Results - Last 24 Hours (Table) 06/16/23 06/16/23 06/16/23 Range/Units 11:26 11:49 11:49 RBC 3.67 L (3.80-5.40) m/uL Hgb 10.8 L (11.4-16.0) gm/dL Hct 33.6 L (34.0-46.0) % Lymphocytes # (1.0-4.8) k/uL Chloride 113 H (98-107) mmol/L Carbon Dioxide 17 L (22-30) mmol/L BUN (7-17) mg/dL Creatinine (0.52-1.04) mg/dL Glucose 134 H (74-99) mg/dL POC Glucose (mg/dL) 139 H (70-110) mg/dL Calcium 7.6 L (8.4-10.2) mg/dL Magnesium (1.6-2.3) mg/dL 06/16/23 06/17/23 06/17/23 Range/Units 17:42 05:34 05:34 RBC 3.63 L (3.80-5.40) m/uL Hgb 11.0 L (11.4-16.0) gm/dL Hct 33.6 L (34.0-46.0) % Lymphocytes # 0.7 L (1.0-4.8) k/uL Chloride 109 H (98-107) mmol/L Carbon Dioxide 17 L (22-30) mmol/L BUN 6 L (7-17) mg/dL Creatinine 0.46 L (0.52-1.04) mg/dL Glucose 178 H (74-99) mg/dL POC Glucose (mg/dL) 150 H (70-110) mg/dL Calcium 8.1 L (8.4-10.2) mg/dL Magnesium 1.4 L (1.6-2.3) mg/dL 06/17/23 Range/Units 07:02 RBC (3.80-5.40) m/uL Hgb (11.4-16.0) gm/dL Hct (34.0-46.0) % Lymphocytes # (1.0-4.8) k/uL Chloride (98-107) mmol/L Carbon Dioxide (22-30) mmol/L BUN (7-17) mg/dL Creatinine (0.52-1.04) mg/dL Glucose (74-99) mg/dL POC Glucose (mg/dL) 205 H (70-110) mg/dL Calcium (8.4-10.2) mg/dL Magnesium (1.6-2.3) mg/dL Assessment and Plan Assessment: Postop day #2, S/P exploratory laparotomy, extensive lysis of adhesions, and partial omentectomy, for small bowel obstruction. Postoperative hypertension, treated with a pain pump, clonidine patch, and hydralazine, resolved. History of CVA. History of diabetes mellitus. History of gastroesophageal reflux disease. History of hyperlipidemia. History of hypertension. History of osteoarthritis. History of breast cancer. History of uterine cancer. Plan: Plan dated 06/16/2023. The patient is seen in the intensive care unit, room 257. She's currently resting comfortably. She is on 3 L of oxygen. Is getting saline at 75 mL an hour. Today is postoperative day #1. Labs, x-rays, and medications are reviewed. We encourage the patient to deep breathe, cough, and clear secretions, and as well, we recommended incentive spirometer, to be used hourly, while the patient is awake. We will continue to follow. The patient continues on Flagyl. No additional recommendations are made. Her blood pressure is under much better control. Her last 2 blood pressures are 135/50, and 130/52. Plan dated 06/17/2023. Today is postoperative day #2, status post exploratory laparotomy, extensive lysis of adhesions, and partial omentectomy. The patient is seen in the intensive care unit, room 257. An NG tube remains in place. Her saturations, on room air, her adequate. She still receiving IV fluids, saline, at 75 mL an hour. She's doing reasonably well on her incentive spirometer. Labs, x-rays, and medications are all reviewed. Her most recent blood pressure is 164/64, with a mean of 98. Initially, in the intensive care unit, after surgery, she was hypertensive. We will continue to follow the patient, and make recommendations along the way. Prognosis is guarded. Time with Patient: Greater than 30
[2023-06-17 11:56] LABS: Glucose,Whole Blood 139 mg/dL (70-110)
--- NOTE | 2023-06-17 13:46 | P.PN ---
Subjective Progress Note Date: 06/17/23 Progress note Date of service 06/17/[address] Wood. Patient complaining of itching all over without hives and she thought could be from her ALLERGY to chloro hexedine wash. No hives and no skin lesion but she had the feeling of itching all over. I was called at 2:30 AM today at home after midnight because of the itching we gave her 1 dose of Solu-Medrol [address] nurse practitioner [address] Levi did also give her Benadryl 25 mg every 8 hour and still itchy unclear the reason for the itching. In regarding of anxiety the not giving her the Xanax as it is by mouth and she has NG tube we will DC the Xanax I discussed that with the pharmacist Allison and we find that we can use Ativan 0.5 mg every 4 hour IV for these and anxiety which is propagating also her itching. Patient status post day 2 of post exploratory laparotomy, no flatness or gases or BM yet. She had the NG tube in place and also the Ralph catheter in place.. Her the anesthesia and surgeon patient has good urine output On examination: Vital signs stable Head was normocephalic atraumatic pupils equal reactive conjunctiva was pink sclera is nonicteric oropharynx was negative and the neck was supple no JVD no thyromegaly no lymphadenopathy. Chest was clear no wheezes no rhonchi's. Heart regular sinus rhythm Abdomen still silent no bowel movement and no bowel sounds and I did advise the patient takes about 3 days at [place] to start the bowel movement to work Extremities no edema. Neurologically stable Assessment: #1 patient in ICU and followed by by nausea pulmonary and critical care. #2 pruritus extensive etiology is unclear #3 status post small bowel obstruction secondary to extensive adhesion. #4 hypertension with hypertensive heart disease. #5 and anxiety. Plan: #1 discontinue Xanax No. 2 start Ativan 0.5 mg every 4R when necessary. For the anxiety #2 will continue the Benadryl as ordered by surgical team for the itching. Monitoring the vital sign and the progression. Objective - Vital Signs Vital signs: Vital Signs Temp 98.1 F 06/17/23 08:00 Pulse 83 06/17/23 09:00 Resp 23 06/17/23 09:00 BP 164/64 06/17/23 07:00 Pulse Ox 95 06/17/23 09:00 FiO2 Intake & Output 06/16/23 06/17/23 06/17/23 18:59 06:59 18:59 Intake Total 950 996 416 Output Total 1205 1175 495 Balance -255 -179 -79 Weight 89.358 kg 84.1 kg Intake: IV 950 996 356 Invasive Line 4 30 30 10 Invasive Line 5 20 30 10 Phenytoin Sodium Inj 200 36 36 mg In Sodium Chloride 0.9 % 36 ml @ 80 mls/hr IVPB Q12HR [facility] Rx#:[id number] Sodium Chloride 0.9% 1, 900 900 300 000 ml @ 75 mls/hr IV . [id number] [facility] Rx#:[id number] Oral 60 Output: Gastric Drainage 500 100 Urine 705 1175 395 Other: Voiding Method Indwelling Catheter Indwelling Catheter Indwelling Catheter # Bowel Movements 0 0 0 - Labs CBC & Chem 7: 06/17/23 05:34 06/17/23 05:34 Labs: Abnormal Lab Results - Last 24 Hours (Table) 06/16/23 06/17/23 06/17/23 Range/Units 17:42 05:34 05:34 RBC 3.63 L (3.80-5.40) m/uL Hgb 11.0 L (11.4-16.0) gm/dL Hct 33.6 L (34.0-46.0) % Lymphocytes # 0.7 L (1.0-4.8) k/uL Chloride 109 H (98-107) mmol/L Carbon Dioxide 17 L (22-30) mmol/L BUN 6 L (7-17) mg/dL Creatinine 0.46 L (0.52-1.04) mg/dL Glucose 178 H (74-99) mg/dL POC Glucose (mg/dL) 150 H (70-110) mg/dL Calcium 8.1 L (8.4-10.2) mg/dL Magnesium 1.4 L (1.6-2.3) mg/dL 06/17/23 06/17/23 Range/Units 07:02 11:55 RBC (3.80-5.40) m/uL Hgb (11.4-16.0) gm/dL Hct (34.0-46.0) % Lymphocytes # (1.0-4.8) k/uL Chloride (98-107) mmol/L Carbon Dioxide (22-30) mmol/L BUN (7-17) mg/dL Creatinine (0.52-1.04) mg/dL Glucose (74-99) mg/dL POC Glucose (mg/dL) 205 H 139 H (70-110) mg/dL Calcium (8.4-10.2) mg/dL Magnesium (1.6-2.3) mg/dL
[2023-06-17] MEDS: diphenhydrAMINE 50 MG/ML 1 ML VIAL IVP PRN ×2 (14:23→23:45)
[2023-06-17] MEDS ORDERED: hydrALAZINE HCL 20 MG/ML 1 ML VIAL IV PRN (14:24)
[2023-06-17] MEDS: hydrALAZINE HCL 20 MG/ML 1 ML VIAL IV PRN ×2 (14:36→20:49)
--- NOTE | 2023-06-17 14:41 | P.PN ---
Progress Note - Text Progress Note Date: 06/17/23 Postoperative day # 1 status post explaretory laparotomy ,epidural catheter placed for postoperative analgesia, patient doing well epidural site okay, patient currently on combination of epidural infusion solution of Ropivacaine 0.0625% and Dilaudid 20 g per mL the infusion rate at 8 ml per hour , patient had no motor deficit epidural site okay , vital signs stable , VAS 0 /10 , patient complaining of itching, we are using Benadryl IV 25 mg every 8 hours when necessary and still complaining of itching,for this reason I will add Nubain 2.5 mg IV every 4 hours when necessary, and if patient continued to feel itching then we have to change the epidural infusion solution to combination of ropivacaine and fentanyl , evaluated the patient was responsive within next few hours Assessment and plan= post operative day #1 patient doing well ,pain well controlled .
[2023-06-17] MEDS: NALBUPHINE 10 MG/ML (10 ML MDV) IV PRN ×2 (15:21→18:50)
[2023-06-17 16:24] LABS: Glucose,Whole Blood 178 mg/dL (70-110)
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
[2023-06-17] MEDS ORDERED: Magnesium Replacement Protocol 1 EACH MISC MISCELLANE PRN (17:29)
[2023-06-17] MEDS ORDERED: Potassium Replacement Protocol 1 EACH MISC MISCELLANE PRN (17:30)
[2023-06-17] MEDS: MAGNESIUM SULFATE-D5W PMX 1 GM in DEXTROSE/WATER 1 100ML.BAG IVPB SCH ×2 (18:00→19:04)
[2023-06-17] MEDS ORDERED: POTASSIUM BICARBONATE/CIT AC 20 MEQ TABLET.EFF NG-TUBE SCH (18:00)
[2023-06-17 20:45] LABS: Glucose,Whole Blood 153 mg/dL (70-110)
[2023-06-18] MEDS: ROPIVACAINE 250 MG, HYDROMORPHONE (PF) 5 MG in SODIUM CHLORIDE 0.9% 200 ML EPIDURAL PRN (00:50)
[2023-06-18 05:22] LABS: Basophils % (A) 0 %; Eosinophils # (A) 0.4 k/uL (0-0.7); Eosinophils % (A) 5 %; HCT 34.4 % (34.0-46.0); HGB 11.4 gm/dL (11.4-16.0); Lymphocytes # (A) 1.5 k/uL (1.0-4.8); Lymphocytes % (A) 22 %; MCH 29.8 pg (25.0-35.0); MCHC 33.3 g/dL (31.0-37.0); MCV 89.5 fL (80.0-100.0); Mean Platelet Volume 7.7; Monocytes # (A) 0.5 k/uL (0-1.0); Monocytes % (A) 7 %; Neutrophils # (A) 4.5 k/uL (1.3-7.7); Neutrophils % (A) 65 %; Platelet Count 287 k/uL (150-450); RBC 3.84 m/uL (3.80-5.40); RDW 13.5 % (11.5-15.5)
[2023-06-18 05:34] LABS: African American GFR (CKD) >90 (>60 ml/min/1.73 sqM); Anion Gap 11 mmol/L; Blood Urea Nitrogen 3 mg/dL (7-17); Carbon Dioxide 23 mmol/L (22-30); Chloride 106 mmol/L (98-107); Non-African American GFR(CKD) >90 (>60 ml/min/1.73 sqM); Potassium 3.2 mmol/L (3.5-5.1); Sodium 140 mmol/L (137-145)
[2023-06-18 05:35] LABS: Glucose 148 mg/dL (74-99)
--- NOTE | 2023-06-18 07:17 | P.PN ---
Progress Note - Text Progress Note Date: 06/18/23 Postoperative day # 3 status post explaretory laparotomy ,epidural catheter placed for postoperative analgesia, patient doing well epidural site okay, patient currently on combination of epidural infusion solution of Ropivacaine 0.0625% and Dilaudid 20 g per mL the infusion rate at 6 ml per hour , patient had no motor deficit epidural site okay , vital signs stable , VAS 0 /10 , patient was complaining of itching, which is controlled with Nubain 2.5 mg IV every 4 hours when necessary. Assessment and plan= post operative day #3 patient doing well ,pain well controlled . We'll discontinue epidural infusion today afternoon or tomorrow,
[2023-06-18] MEDS: INSULIN REGULAR 100 UNIT/ML VIAL (IV) SQ SCH ×3 (07:30→17:49)
[2023-06-18 08:28] LABS: Glucose,Whole Blood 157 mg/dL (70-110)
[2023-06-18] MEDS ORDERED: MAGNESIUM SULFATE-D5W PMX 1 GM in DEXTROSE/WATER 1 100ML.BAG IVPB ONE (09:20)
[2023-06-18] MEDS: SODIUM CHLORIDE 0.9% 1,000 ML IV SCH ×2 (09:23→18:56)
[2023-06-18] MEDS: HEPARIN SODIUM,PORCINE 5,000 UNIT/ML 1 ML VIAL SQ SCH ×2 (09:59→20:14)
[2023-06-18] MEDS: LORazepam 2 MG/ML INJ IV PRN (09:59)
[2023-06-18] MEDS: POTASSIUM BICARBONATE/CIT AC 20 MEQ TABLET.EFF NG-TUBE SCH ×2 (09:59→12:00)
[2023-06-18] MEDS: PANTOPRAZOLE 40 MG/10 ML VIAL IVP SCH ×2 (10:00→20:14)
[2023-06-18] MEDS: levETIRAcetam IV 500 MG/5 ML VIAL IVP SCH ×2 (10:00→20:14)
[2023-06-18] MEDS: hydrALAZINE HCL 20 MG/ML 1 ML VIAL IV PRN ×3 (10:00→19:03)
--- NOTE | 2023-06-18 10:51 | P.PN ---
Subjective Progress Note Date: 06/18/23 Principal diagnosis: Abdominal pain. Pulmonary/critical care consult dated 06/16/2023. This is a 68-year-old female seen today in the intensive care unit, room 257. The patient apparently was admitted to the hospital back on June 10 or abdominal pain. The patient was found have a small bowel obstruction. Today's postop day #1, status post exploratory laparotomy, extensive lysis of adhesions, and partial omentectomy. The surgery was done by Dr. Levi. Currently, the patient seemed be doing relatively well. She is on 3 L of oxygen. She's getting saline at 75 mL an hour. An NG tube in. A pain pump is available for her, in terms of pain control. We encourage her to do the incentive spirometry, every hour, and I notice, there is not one at the bedside, so I asked the nurse to order one. Laboratory data today includes a glucose of 142. From yesterday, white count was 7.7, hemoglobin 12.7, and platelet count was normal. Sodium 143, potassium 4.5, chlorides 109, CO2 19, anion gap 15, BUN 7, creatinine 0.59. Magnesium was 1.5. No recent chest x-ray. The patient is currently on Flagyl. Progress note dated 06/17/2023. 68-year-old female seen in consultation yesterday. She seen in room 257, intensive care unit. The patient is postoperative day #2, status post exploratory laparotomy, extensive lysis of adhesions, and partial omentectomy. The patient is currently on oxygen, at 2 L. An NG tube remains in place. She's getting saline at 75 mL an hour. She's doing reasonably well on her incentive spirometer. She is having an apparent reaction to chlorhexidine. I recommend some Benadryl. White count of 7.8, hemoglobin 11, hematocrit 33.6, and a normal platelet count. Sodium 142, potassium 3.8, chlorides 109, CO2 17, anion gap 16, BUN 6, and creatinine 0.46. Calcium is 8.1 with magnesium of 1.4. Progress note dated 06/18/2023. 68-year-old female seen in consultation 2 days ago. The patient still is in the intensive care unit, room 257. The patient has an NG tube in place, and is on room air. She is receiving saline at 75 mL an hour. Labs include a white count of 7, hemoglobin 11.4, hematocrit 34.4, and platelet count of 287,000. Sodium 140, potassium 3.2, chlorides 106, CO2 23, BUN 3, creatinine 0.43. Glucose 148. Calcium is 8. The patient does complain of abdominal tenderness. Objective - Vital Signs Vital signs: Vital Signs Temp 98.2 F 06/18/23 09:04 Pulse 88 06/18/23 09:04 Resp 16 06/18/23 09:04 BP 185/81 06/18/23 09:04 Pulse Ox 95 06/18/23 09:04 FiO2 Intake & Output 06/17/23 06/18/23 06/18/23 18:59 06:59 18:59 Intake Total 1111 1150 0 Output Total 900 1080 Balance 211 70 0 Weight 84.1 kg Intake: IV 1051 1150 0 Invasive Line 4 20 0 0 Invasive Line 5 20 0 0 Phenytoin Sodium Inj 200 36 mg In Sodium Chloride 0.9 % 36 ml @ 80 mls/hr IVPB Q12HR [facility] Rx#:[id number] Sodium Chloride 0.9% 1, 975 1150 000 ml @ 75 mls/hr IV . [id number] [facility] Rx#:[id number] Oral 60 Output: Gastric Drainage 100 230 Urine 800 850 Other: Voiding Method Indwelling Catheter Indwelling Catheter # Bowel Movements 0 0 - Exam No acute distress, oriented 3. NG tube in place. Currently on room air. HEENT examination is grossly unremarkable. Mucous membranes are moist. No oral lesions. Neck supple. Full range of motion. No adenopathy thyromegaly or neck vein distention. Cardiovascular examination reveals regular rhythm rate. S1-S2 normal. No S3 or S4. No discernible murmur noted. Heart sounds are distant. Heart rate 88 bpm. Lungs reveal minimal scattered rhonchi. No wheezes. No crackles. Breath sounds are equal. Saturations are 95 %. Abdomen soft, without bowel sounds. Abdomen tender. Extremities are intact. No cyanosis clubbing or edema. Skin is without rash or lesion. Neurologic examination is brief but nonfocal. - Labs CBC & Chem 7: 06/18/23 04:26 06/18/23 04:26 Labs: Abnormal Lab Results - Last 24 Hours (Table) 06/17/23 06/17/2306/17/23 Range/Units 11:55 16:23 20:43 Potassium (3.5-5.1) mmol/L BUN (7-17) mg/dL Creatinine (0.52-1.04) mg/dL Glucose (74-99) mg/dL POC Glucose (mg/dL) 139 H 178 H 153 H (70-110) mg/dL Calcium (8.4-10.2) mg/dL 06/18/23 06/18/23 Range/Units 04:26 08:26 Potassium 3.2 L (3.5-5.1) mmol/L BUN 3 L (7-17) mg/dL Creatinine 0.43 L (0.52-1.04) mg/dL Glucose 148 H (74-99) mg/dL POC Glucose (mg/dL) 157 H (70-110) mg/dL Calcium 8.0 L (8.4-10.2) mg/dL Assessment and Plan Assessment: Postop day #3, S/P exploratory laparotomy, extensive lysis of adhesions, and partial omentectomy, for small bowel obstruction. Postoperative hypertension, treated with a pain pump, clonidine patch, and hydralazine, resolved. History of CVA. History of diabetes mellitus. History of gastroesophageal reflux disease. History of hyperlipidemia. History of hypertension. History of osteoarthritis. History of breast cancer. History of uterine cancer. Plan: Plan dated 06/16/2023. The patient is seen in the intensive care unit, room 257. She's currently resting comfortably. She is on 3 L of oxygen. Is getting saline at 75 mL an hour. Today is postoperative day #1. Labs, x-rays, and medications are reviewed. We encourage the patient to deep breathe, cough, and clear secretions, and as well, we recommended incentive spirometer, to be used hourly, while the patient is awake. We will continue to follow. The patient continues on Flagyl. No additional recommendations are made. Her blood pressure is under much better control. Her last 2 blood pressures are 135/50, and 130/52. Plan dated 06/17/2023. Today is postoperative day #2, status post exploratory laparotomy, extensive lysis of adhesions, and partial omentectomy. The patient is seen in the intensive care unit, room 257. An NG tube remains in place. Her saturations, on room air, her adequate. She still receiving IV fluids, saline, at 75 mL an hour. She's doing reasonably well on her incentive spirometer. Labs, x-rays, and medications are all reviewed. Her most recent blood pressure is 164/64, with a mean of 98. Initially, in the intensive care unit, after surgery, she was hypertensive. We will continue to follow the patient, and make recommendations along the way. Prognosis is guarded. Plan dated 06/18/2023. Today is postoperative day #3, status post exploratory laparotomy, lysis of adhesions, and partial omentectomy. The patient is again seen in room 257. She's on room air. She has an NG tube in place. She does have abdominal tenderness. She's getting saline at 75 mL an hour. Labs, x-rays, and medications are reviewed. We will continue to follow make recommendations along the way. The patient's overall prognosis remains guarded. Time with Patient: Less than 30
[2023-06-18] MEDS: PHENYTOIN SODIUM INJ 200 MG in SODIUM CHLORIDE 0.9% 36 ML IVPB SCH ×2 (11:00→20:14)
[2023-06-18 11:33] LABS: Glucose,Whole Blood 183 mg/dL (70-110)
--- NOTE | 2023-06-18 12:19 | P.PN ---
Subjective Progress Note Date: 06/18/23 CHIEF COMPLAINT: SBO HISTORY OF PRESENT ILLNESS: Patient is postop day #3 status post exploratory laparotomy with extensive lysis of adhesions and partial omentectomy. Patient is currently in the ICU as medsurg overflow. Patient does complain of abdominal pain on the left side. Epidural may be discontinued today. Patient still has had no bowel activity. NG tube with 80 mL bilious output. Afebrile. Elevated BP. WBC 7.0HB 11.4 platelets 287 sodium was 140 potassium 3.2 creatinine 0.43 magnesium 1.7 PHYSICAL EXAM: VITAL SIGNS: Reviewed. GENERAL: Well-developed in no acute distress. ABDOMEN: Soft. Mildly distended. Incisional dressing clean dry and intact. Tenderness with palpation of left side abdomen. NEUROLOGIC: Alert and oriented. Cranial nerves II through XII grossly intact. ASSESSMENT: 1. Small bowel obstruction secondary to intra-abdominal adhesions. Status post exploratory laparotomy with extensive lysis of adhesions and partial omentectomy PLAN: -PICC line ordered for TPN -Consult dietitian to start TPN for nutrition support -Add Reglan to help stimulate bowel function -magnesium and potassium being replaced -Epidural to be discontinued today -Add IV Dilaudid 1 mg every 3 hours as needed for pain -Continue NG tube for decompression -Keep patient nothing by mouth except ice chips and popsicles -Incentive spirometer ordered -Encouraged patient to increase activity level -DVT prophylaxis subcu heparin Physician Medical Language Specialist note has been reviewed by physician. Signing provider agrees with the documented findings, assessment, and plan of care. I have personally seen and examined the patient, reviewed the DATA ANALYST /PAs history, exam and MDM and agree with the assessment and plan as written. Based on total visit time, I have performed more than 50% of the visit. As above: Patient feels well today. No flatus. No nausea or vomiting. Nasogastric tube remains in place. Anesthesia prefers epidural, tomorrow morning. We'll remove epidural and Ralph catheter tomorrow. Begin TPN now the PICC line is placed. Ambulate. Objective - Vital Signs Vital signs: Vital Signs Temp 98.2 F 06/18/23 09:04 Pulse 88 06/18/23 09:04 Resp 16 06/18/23 09:04 BP 185/81 06/18/23 09:04 Pulse Ox 95 11/08/23 09:04 FiO2 Intake & Output 06/17/23 06/18/23 06/18/23 18:59 06:59 18:59 Intake Total 1111 1150 0 Output Total 900 1080 Balance 211 70 0 Intake: IV 1051 1150 0 Invasive Line 4 20 0 0 Invasive Line 5 20 0 0 Phenytoin Sodium Inj 200 36 mg In Sodium Chloride 0.9 % 36 ml @ 80 mls/hr IVPB Q12HR [facility] Rx#:[id number] Sodium Chloride 0.9% 1, 975 1150 000 ml @ 75 mls/hr IV . [id number] [facility] Rx#:[id number] Oral 60 Output: Gastric Drainage 100 230 Urine 800 850 Other: Voiding Method Indwelling Catheter Indwelling Catheter # Bowel Movements 0 0 - Labs CBC & Chem 7: 06/18/23 04:26 06/18/23 04:26 Labs: Abnormal Lab Results - Last 24 Hours (Table) 06/17/23 06/17/23 06/17/23 Range/Units 11:55 16:23 20:43 Potassium (3.5-5.1) mmol/L BUN (7-17) mg/dL Creatinine (0.52-1.04) mg/dL Glucose (74-99) mg/dL POC Glucose (mg/dL) 139 H 178 H 153 H (70-110) mg/dL Calcium (8.4-10.2) mg/dL 06/18/23 06/18/23 Range/Units 04:26 08:26 Potassium 3.2 L (3.5-5.1) mmol/L BUN 3 L (7-17) mg/dL Creatinine 0.43 L (0.52-1.04) mg/dL Glucose 148 H (74-99) mg/dL POC Glucose (mg/dL) 157 H (70-110) mg/dL Calcium 8.0 L (8.4-10.2) mg/dL
[2023-06-18] MEDS: NALBUPHINE 10 MG/ML (10 ML MDV) IV PRN ×2 (13:00→17:49)
--- NOTE | 2023-06-18 13:04 | P.PN ---
Subjective Progress Note Date: 06/18/23 Progress note Date of service 06/18/[address] Wood. Patient seen today [id number], Main complaint is itching and and her blood pressure is elevated and they will be using when necessary IV medication and to be adjusted. They have been trying to use it currently Her vital sign temperature 98.2 pulse rate 88. Respiratory rate 16/m. And blood pressure 185/81 with mean 115 and pulse ox 95% . Laboratory: WBC 7, hemoglobin 11.4, hematocrit 34.4. And her blood sugar is fluctuating last CBG reading was 157 followed by 183 colored with insulin subcu. Magnesium 1.7, potassium 3.2 and supplemented. On the physical exam Exam: Patient is conscious alert oriented 3 and ambulatory, she had subdural for pain by the anesthesia, that is why she is still have the Ralph catheter. And they will be taken away the Ralph catheter when the epidural removed The head was normocephalic and atraumatic pupils equal reactive oropharynx was negative neck was supple Chest is clear to auscultation percussion and she had no breast as removed for cancer Heart regular sinus rhythm and the abdomen is distended tender and tympanitic on percussion. Extremities no edema positive pulses. Neurologically stable. And ambulating. Status post exploratory laparotomy for small bowel obstruction with severe adhe reshma. Hypertension was hypertensive heart disease Anxiety neurosis She still have her NG tube in place. Plan: #1 continue supportive care #2 continue the Benadryl #3 future plan for anesthesia to remove the subdural and subsequently they will remove the Ralph catheter. #4 diabetes mellitus type 2 covered with insulin fluctuating #5 hypokalemia and electrolyte imbalance. #6 for the pain she had total as well as she had Dilantin for control pain. #7 if there is no control on the blood pressure will increase Lopressor to 10 mg every 8 hour but for the time being we'll start the when necessary medication and monitor. #8 for prolonged fasting state for her illness will check the prealbumin. Objective - Vital Signs Vital signs: Vital Signs Temp 98.2 F 06/18/23 09:04 Pulse 88 06/18/23 09:04 Resp 16 06/18/23 09:04 BP 185/81 06/18/23 09:04 Pulse Ox 95 11/08/23 09:04 FiO2 Intake & Output 06/17/23 06/18/23 06/18/23 18:59 06:59 18:59 Intake Total 1111 1150 0 Output Total 900 1080 Balance 211 70 0 Weight 84.1 kg Intake: IV 1051 1150 0 Invasive Line 4 20 0 0 Invasive Line 5 20 0 0 Phenytoin Sodium Inj 200 36 mg In Sodium Chloride 0.9 % 36 ml @ 80 mls/hr IVPB Q12HR [facility] Rx#:[id number] Sodium Chloride 0.9% 1, 975 1150 000 ml @ 75 mls/hr IV . [id number] [facility] Rx#:[id number] Oral 60 Output: Gastric Drainage 100 230 Urine 800 850 Other: Voiding Method Indwelling Catheter Indwelling Catheter # Bowel Movements 0 0 - Labs CBC & Chem 7: 06/18/23 04:26 06/18/23 04:26 Labs: Abnormal Lab Results - Last 24 Hours (Table) 06/17/23 06/17/23 06/18/23 Range/Units 16:23 20:43 04:26 Potassium 3.2 L (3.5-5.1) mmol/L BUN 3 L (7-17) mg/dL Creatinine 0.43 L (0.52-1.04) mg/dL Glucose 148 H (74-99) mg/dL POC Glucose (mg/dL) 178 H 153 H (70-110) mg/dL Calcium 8.0 L (8.4-10.2) mg/dL 06/18/23 06/18/23 Range/Units 08:26 11:31 Potassium (3.5-5.1) mmol/L BUN (7-17) mg/dL Creatinine (0.52-1.04) mg/dL Glucose (74-99) mg/dL POC Glucose (mg/dL) 157 H 183 H (70-110) mg/dL Calcium (8.4-10.2) mg/dL
[2023-06-18] MEDS: METOCLOPRAMIDE 5 MG/ML 2 ML VIAL IVP SCH ×3 (13:05→23:16)
[2023-06-18] MEDS ORDERED: HEPARIN SODIUM,PORCINE 5,000 UNIT/ML 1 ML VIAL SQ STA (13:30)
[2023-06-18] MEDS ORDERED: LIDOCAINE 1% INJ 10MG/ML (20 ML MDV) SQ ONE (13:46)
--- NOTE | 2023-06-18 14:07 | XR ---
EXAMINATION TYPE: XR chest 1V DATE OF EXAM: 06/18/2023 1:58 PM COMPARISON: Chest radiographs from 06/13/2023 TECHNIQUE: XR chest 1V Frontal view of the chest. CLINICAL INDICATION:Female, 68 years old with history of PICC PLACEMENT; FINDINGS: Patient is rotated which was evaluation. Lungs/Pleura: There is no evidence of pleural effusion, focal consolidation, or pneumothorax. Left m idlung linear atelectasis. Elevation of the right hemidiaphragm. Pulmonary vascularity: Unremarkable. Heart/mediastinum: Cardiomediastinal silhouette is prominent in size. Musculoskeletal: No acute osseous pathology. Other findings: Right axillary surgical clips. Lines/Tubes: Nasogastric tube with its distal tip and side-port projecting under the diaphragm. Residual enteric c ontrast within the gastric fundus. Interval placement of left PICC line with distal tip in the high SVC. IMPRESSION: Interval placement of left PICC line with distal tip in the high SVC. No pneumothorax.
--- NOTE | 2023-06-18 14:36 | IR ---
PICC LINE PLACEMENT: HISTORY: Infection requiring long-term antibiotic therapy PROCEDURE: Ultrasound guidance of PICC line placement. COMPLICATIONS: None ANESTHESIA: 1. 1% Lidocaine locally. FINDINGS/TECHNIQUE: The procedure was explained to the patient. The risks, complications, benefits and alternatives were discussed and any questions were answered. Informed consent was obtained. The patient was placed supine on the fluoroscopic table and prepped and draped in the usual sterile fash ion. Utilizing a 21 gauge needle and sonographic guidance, access in the left basilic vein was achi eved and there is placement of a 0.018 guidewire. The vein is patent. A 5-F. sheath was placed over the guidewire. The guidewire and dilator were removed and a 5-F. Double lumen PICC line was placed through the sheath with the chest x-ray confirming the tip at the level of the SVC. The sheath was r emoved, the catheter was flushed and sutured into position. The patient was stable throughout the pr ocedure and remained stable upon discharge from the Department of Radiology. The vein puncture was patent under ultrasound. A xavier scale image was obtained to document patency of the vein punctured. All elements of the maximal barrier technique were utilized. IMPRESSION: 1. Successful PICC line placement under ultrasound performed bedside within the ICU.
[2023-06-18 16:37] LABS: Glucose,Whole Blood 180 mg/dL (70-110)
[2023-06-18] MEDS ORDERED: MVI, ADULT NO.4 WITH VIT K 10 ML, TRACE (CONC-1ML/DOSE) 1 ML in AMINO ACID 5%-D15W+LYTE... IV ONE ×3 (17:00)
[2023-06-18 17:23] LABS: Magnesium 1.7 mg/dL (1.6-2.3); Phosphorus 1.3 mg/dL (2.5-4.5)
[2023-06-18] MEDS: ENALAPRILAT 1.25 MG/ML 1 ML VIAL IVP PRN (17:55)
[2023-06-18] MEDS: FAT EMULSION 20% 250 ML IV SCH (18:56)
[2023-06-18] MEDS: diphenhydrAMINE 50 MG/ML 1 ML VIAL IVP PRN (20:54)
[2023-06-19 06:18] LABS: Glucose,Whole Blood 222 mg/dL (70-110)
[2023-06-19] MEDS: INSULIN REGULAR 100 UNIT/ML VIAL (IV) SQ SCH ×3 (06:27→16:35)
[2023-06-19] MEDS: METOCLOPRAMIDE 5 MG/ML 2 ML VIAL IVP SCH ×3 (06:33→18:37)
[2023-06-19 07:07] LABS: African American GFR (CKD) >90 (>60 ml/min/1.73 sqM); Anion Gap 7 mmol/L; Blood Urea Nitrogen 3 mg/dL (7-17); Calcium 7.8 mg/dL (8.4-10.2); Carbon Dioxide 27 mmol/L (22-30); Chloride 103 mmol/L (98-107); Glucose 220 mg/dL (74-99); Magnesium 1.4 mg/dL (1.6-2.3); Non-African American GFR(CKD) >90 (>60 ml/min/1.73 sqM); Potassium 3.2 mmol/L (3.5-5.1); Sodium 137 mmol/L (137-145)
[2023-06-19] MEDS: HEPARIN SODIUM,PORCINE 5,000 UNIT/ML 1 ML VIAL SQ SCH ×2 (08:08→21:34)
[2023-06-19] MEDS: SODIUM CHLORIDE 0.9% 1,000 ML IV SCH (08:16)
[2023-06-19] MEDS: PANTOPRAZOLE 40 MG/10 ML VIAL IVP SCH ×2 (08:16→21:34)
[2023-06-19] MEDS: levETIRAcetam IV 500 MG/5 ML VIAL IVP SCH ×2 (08:16→21:34)
[2023-06-19 08:21] LABS: Ionized Calcium 4.6 mg/dL (4.5-5.3)
[2023-06-19] MEDS: PHENYTOIN SODIUM INJ 200 MG in SODIUM CHLORIDE 0.9% 36 ML IVPB SCH ×2 (09:01→21:34)
[2023-06-19] MEDS: POTASSIUM CHLORIDE 20 MEQ in WATER FOR INJECTION 1 100ML.BAG IVPB SCH ×4 (09:02→19:01)
[2023-06-19] MEDS: MAGNESIUM SULFATE-D5W PMX 1 GM in DEXTROSE/WATER 1 100ML.BAG IVPB SCH ×2 (09:38→10:54)
--- NOTE | 2023-06-19 11:05 | P.PN ---
Subjective Progress Note Date: 06/19/23 Principal diagnosis: Abdominal pain. Pulmonary/critical care consult dated 06/16/2023. This is a 68-year-old female seen today in the intensive care unit, room 257. The patient apparently was admitted to the hospital back on June 10 or abdominal pain. The patient was found have a small bowel obstruction. Today's postop day #1, status post exploratory laparotomy, extensive lysis of adhesions, and partial omentectomy. The surgery was done by Dr. Levi. Currently, the patient seemed be doing relatively well. She is on 3 L of oxygen. She's getting saline at 75 mL an hour. An NG tube in. A pain pump is available for her, in terms of pain control. We encourage her to do the incentive spirometry, every hour, and I notice, there is not one at the bedside, so I asked the nurse to order one. Laboratory data today includes a glucose of 142. From yesterday, white count was 7.7, hemoglobin 12.7, and platelet count was normal. Sodium 143, potassium 4.5, chlorides 109, CO2 19, anion gap 15, BUN 7, creatinine 0.59. Magnesium was 1.5. No recent chest x-ray. The patient is currently on Flagyl. Progress note dated 06/17/2023. 68-year-old female seen in consultation yesterday. She seen in room 257, intensive care unit. The patient is postoperative day #2, status post exploratory laparotomy, extensive lysis of adhesions, and partial omentectomy. The patient is currently on oxygen, at 2 L. An NG tube remains in place. She's getting saline at 75 mL an hour. She's doing reasonably well on her incentive spirometer. She is having an apparent reaction to chlorhexidine. I recommend some Benadryl. White count of 7.8, hemoglobin 11, hematocrit 33.6, and a normal platelet count. Sodium 142, potassium 3.8, chlorides 109, CO2 17, anion gap 16, BUN 6, and creatinine 0.46. Calcium is 8.1 with magnesium of 1.4. Progress note dated 06/18/2023. 68-year-old female seen in consultation 2 days ago. The patient still is in the intensive care unit, room 257. The patient has an NG tube in place, and is on room air. She is receiving saline at 75 mL an hour. Labs include a white count of 7, hemoglobin 11.4, hematocrit 34.4, and platelet count of 287,000. Sodium 140, potassium 3.2, chlorides 106, CO2 23, BUN 3, creatinine 0.43. Glucose 148. Calcium is 8. The patient does complain of abdominal tenderness. Progress note dated 06/19/2023. 68-year-old female seen in consultation 3 days ago. She seen today again in room 257. Patient still has the NG tube still in place. She's receiving saline at 75 mL an hour, and TPN at 30 mL an hour. The epidural pain catheter, has been removed. Sodium 137, potassium 3.2, chlorides 103, CO2 27, BUN 3, creatinine 0.42. Magnesium is 1.4. Phosphorus is 2.0. Chest x-ray from yesterday, shows no evidence of pleural effusion, pneumothorax, or focal consolidation. Objective - Vital Signs Vital signs: Vital Signs Temp 98.7 F 06/19/23 08:00 Pulse 82 06/19/23 08:00 Resp 18 06/19/23 08:00 BP 164/75 06/19/23 08:00 Pulse Ox 97 06/19/23 08:00 FiO2 Intake & Output 06/18/23 06/19/23 06/19/23 18:59 06:59 18:59 Intake Total 50 2530 135 Output Total 1850 75 Balance 50 680 60 Weight 84.1 kg 84.1 kg Intake: IV 50 2530 135 Fat Emulsion 20% 250 ml @ 240 20.833 mls/hr IV SuWe@ 1800 [facility] Rx#:[id number] Invasive Line 5 0 Invasive Line 6 30 10 Invasive Line 7 20 20 Magnesium Sulfate-D5w Pmx 100 1 gm In Dextrose/Water 1 100ml.bag @ 100 mls/hr IVPB ONCE ONE Rx#: [id number] Mvi, Adult No.4 with Vit 360 60 K 10 ml Trace (Conc-1Ml/ Dose) 1 ml In Amino Acid 5%-D15w+Lytes*E* 1,000 ml @ 30 mls/hr IV .Q24H ONE Rx#:[id number] Sodium Chloride 0.9% 1, 1800 75 000 ml @ 75 mls/hr IV . [id number] [facility] Rx#:[id number] Output: Gastric Drainage 150 Urine 1700 75 Other: Voiding Method Indwelling Catheter Indwelling Catheter Indwelling Catheter # Bowel Movements 0 - Exam No acute distress, oriented 3. NG tube in place. Currently on room air. HEENT examination is grossly unremarkable. Mucous membranes are moist. No oral lesions. The patient has an NG tube in place. Neck supple. Full range of motion. No adenopathy thyromegaly or neck vein distention. Cardiovascular examination reveals regular rhythm rate. S1-S2 normal. No S3 or S4. No discernible murmur noted. Heart sounds are distant. Heart rate 82 bpm. Lungs reveal minimal scattered rhonchi. No wheezes. No crackles. Breath sounds are equal. Saturations are 97 %. Abdomen soft, without bowel sounds. Abdomen tender. Extremities are intact. No cyanosis clubbing or edema. Skin is without rash or lesion. Neurologic examination is brief but nonfocal. - Labs CBC & Chem 7: 06/18/23 04:26 06/19/23 06:21 Labs: Abnormal Lab Results - Last 24 Hours (Table) 06/18/23 06/18/23 06/18/23 Range/Units 11:31 15:15 16:36 Potassium (3.5-5.1) mmol/L BUN (7-17) mg/dL Creatinine (0.52-1.04) mg/dL Glucose (74-99) mg/dL POC Glucose (mg/dL) 183 H 180 H (70-110) mg/dL Calcium (8.4-10.2) mg/dL Phosphorus (2.5-4.5) mg/dL Magnesium (1.6-2.3) mg/dL Prealbumin 8.4 L (18.0-42.0) mg/dL 06/18/23 06/19/23 06/19/23 Range/Units 16:53 06:17 06:21 Potassium 3.2 L (3.5-5.1) mmol/L BUN 3 L (7-17) mg/dL Creatinine 0.42 L (0.52-1.04) mg/dL Glucose 220 H (74-99) mg/dL POC Glucose (mg/dL) 222 H (70-110) mg/dL Calcium 7.8 L (8.4-10.2) mg/dL Phosphorus 1.3 L 2.0 L (2.5-4.5) mg/dL Magnesium 1.4 L (1.6-2.3) mg/dL Prealbumin (18.0-42.0) mg/dL Assessment and Plan Assessment: Postop day #4, S/P exploratory laparotomy, extensive lysis of adhesions, and partial omentectomy, for small bowel obstruction. Postoperative hypertension, treated with a pain pump, clonidine patch, and hydralazine, resolved. History of CVA. History of diabetes mellitus. History of gastroesophageal reflux disease. History of hyperlipidemia. History of hypertension. History of osteoarthritis. History of breast cancer. History of uterine cancer. Plan: Plan dated 06/16/2023. The patient is seen in the intensive care unit, room 257. She's currently resting comfortably. She is on 3 L of oxygen. Is getting saline at 75 mL an hour. Today is postoperative day #1. Labs, x-rays, and medications are reviewed. We encourage the patient to deep breathe, cough, and clear secretions, and as well, we recommended incentive spirometer, to be used hourly, while the patient is awake. We will continue to follow. The patient continues on Flagyl. No additional recommendations are made. Her blood pressure is under much better control. Her last 2 blood pressures are 135/50, and 130/52. Plan dated 06/17/2023. Today is postoperative day #2, status post exploratory laparotomy, extensive lysis of adhesions, and partial omentectomy. The patient is seen in the intensive care unit, room 257. An NG tube remains in place. Her saturations, on room air, her adequate. She still receiving IV fluids, saline, at 75 mL an hour. She's doing reasonably well on her incentive spirometer. Labs, x-rays, and medications are all reviewed. Her most recent blood pressure is 164/64, with a mean of 98. Initially, in the intensive care unit, after surgery, she was hypertensive. We will continue to follow the patient, and make re commendations along the way. Prognosis is guarded. Plan dated 06/18/2023. Today is postoperative day #3, status post exploratory laparotomy, lysis of adhesions, and partial omentectomy. The patient is again seen in room 257. She's on room air. She has an NG tube in place. She does have abdominal tenderness. She's getting saline at 75 mL an hour. Labs, x-rays, and medications are reviewed. We will continue to follow make recommendations along the way. The patient's overall prognosis remains guarded. Plan dated 06/19/2023. Today is postoperative day #4. She is status post exploratory laparotomy, extensive lysis of adhesions, and partial omentectomy. The patient is seen today in room 257. Currently, she is on room air. The patient is receiving saline at 75 mL an hour. In addition, the patient's receiving TPN at 30 mL an hour. Epidural catheter has been removed. Labs, x-rays, and medications are reviewed. We will continue to follow the patient, and make recommendations along the way. Prognosis is guarded. Time with Patient: Less than 30
[2023-06-19 11:48] LABS: Glucose,Whole Blood 229 mg/dL (70-110)
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
--- NOTE | 2023-06-19 12:43 | P.PN ---
Subjective Progress Note Date: 06/19/23 (Small bowel obstruction status post exploratory laparotomy) Progress note Date of service 06/19/[address] Wood. Patient seen [id number] evaluated Patient had low pre-albumin and started on TPN yesterday after PICC line was placed by the cardiology invasive. No seizures Vital sign: Temperature 98.7 F oral heart rate 94 bpm82 bpm Respiratory rate 18/m nonlabored Blood pressure fluctuating between 154/63 with a mean cell 93 and 164/75 with a mean 104 Oxygen saturation 97% on room air. Ralph catheter has been removed and subdural line has been removed by anesthesia. On exam: Conscious alert oriented 3 no seizures. Head was normocephalic and atraumatic pupil was equal reactive conjunctiva was pink sclera was nonicteric and extraocular muscle movement is intact Oropharynx was negative and NG tube in place clear at this time Neck was supple no JVD no thyromegaly no lymphadenopathy trachea midline Chest was clear to auscultation percussion Heart was regular sinus rhythm Abdomen: Distended and tympanitic and she passed gas today with the start of improving. Extremities: Positive pulses and she wearing the of thrombotic stocking. Neurologically stable Assessment: #1 hypokalemia and hypomagnesemia. #2 protein calorie deficiency secondary to being nothing by mouth started Sat urday on the TPN by Dr. Levi with the nutritional consult. #3 hypertension with hypertensive heart disease patient covered with medication on when necessary basis to avoid hypotension and patient specially nothing by mouth #4 diabetes mellitus type 2 currently with insulin to scale patient on nothing by mouth. #5 start ambulation. Plan: We'll continue the current treatment cover for the electrolyte imbalance. And potassium and magnesium. Continue following the hypertension and diabetes. Hopefully within the couple days patient able to move her bowel. Objective - Vital Signs Vital signs: Vital Signs Temp 98.7 F 06/19/23 08:00 Pulse 82 06/19/23 08:00 Resp 18 06/19/23 08:00 BP 164/75 06/19/23 08:00 Pulse Ox 97 06/19/23 08:00 FiO2 Intake & Output 06/18/23 06/19/23 06/19/23 18:59 06:59 18:59 Intake Total 50 2530 135 Output Total 1850 75 Balance 50 680 60 Weight 84.1 kg 84.1 kg Intake: IV 50 2530 135 Fat Emulsion 20% 250 ml @ 240 20.833 mls/hr IV SuWe@ 1800 [facility] Rx#:[id number] Invasive Line 5 0 Invasive Line 6 30 10 Invasive Line 7 20 20 Magnesium Sulfate-D5w Pmx 100 1 gm In Dextrose/Water 1 100ml.bag @ 100 mls/hr IVPB ONCE ONE Rx#: [id number] Mvi, Adult No.4 with Vit 360 60 K 10 ml Trace (Conc-1Ml/ Dose) 1 ml In Amino Acid 5%-D15w+Lytes*E* 1,000 ml @ 30 mls/hr IV .Q24H ONE Rx#:[id number] Sodium Chloride 0.9% 1, 1800 75 000 ml @ 75 mls/hr IV . [id number] [facility] Rx#:[id number] Output: Gastric Drainage 150 Urine 1700 75 Other: Voiding Method Indwelling Catheter Indwelling Catheter Indwelling Catheter # Bowel Movements 0 - Labs CBC & Chem 7: 06/18/23 04:26 06/19/23 06:21 Labs: Abnormal Lab Results - Last 24 Hours (Table) 06/18/23 06/18/23 06/18/23 Range/Units 15:15 16:36 16:53 Potassium (3.5-5.1) mmol/L BUN (7-17) mg/dL Creatinine (0.52-1.04) mg/dL Glucose (74-99) mg/dL POC Glucose (mg/dL) 180 H (70-110) mg/dL Calcium (8.4-10.2) mg/dL Phosphorus 1.3 L (2.5-4.5) mg/dL Magnesium (1.6-2.3) mg/dL Prealbumin 8.4 L (18.0-42.0) mg/dL 06/19/23 06/19/23 06/19/23 Range/Units 06:17 06:21 11:46 Potassium 3.2 L (3.5-5.1) mmol/L BUN 3 L (7-17) mg/dL Creatinine 0.42 L (0.52-1.04) mg/dL Glucose 220 H (74-99) mg/dL POC Glucose (mg/dL) 222 H 229 H (70-110) mg/dL Calcium 7.8 L (8.4-10.2) mg/dL Phosphorus 2.0 L (2.5-4.5) mg/dL Magnesium 1.4 L (1.6-2.3) mg/dL Prealbumin (18.0-42.0) mg/dL
[2023-06-19] MEDS: METOPROLOL TARTRATE 5 MG/5 ML VIAL IVP PRN (13:01)
--- NOTE | 2023-06-19 13:30 | P.PN ---
Subjective Progress Note Date: 06/19/23 CHIEF COMPLAINT: SBO HISTORY OF PRESENT ILLNESS: Patient is postop day #4 status post exploratory laparotomy with extensive lysis of adhesions and partial omentectomy. Patient is currently in the ICU as medsurg ajayflow. She is sitting up at bedside chair. She did have flatus. She reports her pain is controlled. NG tube with only 150 mL output. She is status post PICC line placement and has TPN for nutrition support. Afebrile. k 3.2 Mg 1.4. Epidural discontinued this morning PHYSICAL EXAM: VITAL SIGNS: Reviewed. GENERAL: Well-developed in no acute distress. ABDOMEN: Soft. Mildly distended. minimal tenderness at incision site. Incisional dressing clean dry and intact. NEUROLOGIC: Alert and oriented. Cranial nerves II through XII grossly intact. ASSESSMENT: 1. Small bowel obstruction secondary to intra-abdominal adhesions. Status post exploratory laparotomy with extensive lysis of adhesions and partial omentectomy PLAN: -Discontinue NG tube -Start clear liquid diet -whitlock catheter to be discontinued today -Continue TPN for nutrition support -Continue Reglan -magnesium and potassium being replaced -Incentive spirometer ordered -Encouraged patient to increase activity level -DVT prophylaxis subcu heparin Physician Film Maker note has been reviewed by physician. Signing provider agrees with the documented findings, assessment, and plan of care. I have personally seen and examined the patient, reviewed the [employer] /PAs history, exam and MDM and agree with the assessment and plan as written. Based on total visit time, I have performed more than 50% of the visit. As above: Patient doing better today. She is passing flatus. Nasogastric tube removed. Tolerating clear liquids. Continue increasing activity. Whitlock and epidural catheter now out. Objective - Vital Signs Vital signs: Vital Signs Temp 98.7 F 06/19/23 08:00 Pulse 82 06/19/23 08:00 Resp 18 06/19/23 08:00 BP 164/75 06/19/23 08:00 Pulse Ox 97 06/19/23 08:00 FiO2 Intake & Output 06/18/23 06/19/23 06/19/23 18:59 06:59 18:59 Intake Total 50 2530 135 Output Total 1850 75 Balance 50 680 60 Weight 84.1 kg 84.1 kg Intake: IV 50 2530 135 Fat Emulsion 20% 250 ml @ 240 20.833 mls/hr IV SuWe@ 1800 [facility] Rx#:[id number] Invasive Line 5 0 Invasive Line 6 30 10 Invasive Line 7 20 20 Magnesium Sulfate-D5w Pmx 100 1 gm In Dextrose/Water 1 100ml.bag @ 100 mls/hr IVPB ONCE ONE Rx#: [id number] Mvi, Adult No.4 with Vit 360 60 K 10 ml Trace (Conc-1Ml/ Dose) 1 ml In Amino Acid 5%-D15w+Lytes*E* 1,000 ml @ 30 mls/hr IV .Q24H ONE Rx#:[id number] Sodium Chloride 0.9% 1, 1800 75 000 ml @ 75 mls/hr IV . [id number] [facility] Rx#:[id number] Output: Gastric Drainage 150 Urine 1700 75 Other: Voiding Method Indwelling Catheter Indwelling Catheter Indwelling Catheter # Bowel Movements 0 - Labs CBC & Chem 7: 06/18/23 04:26 06/19/23 15:54 Labs: Abnormal Lab Results - Last 24 Hours (Table) 06/18/23 06/18/23 06/18/23 Range/Units 11:31 15:15 16:36 Potassium (3.5-5.1) mmol/L BUN (7-17) mg/dL Creatinine (0.52-1.04) mg/dL Glucose (74-99) mg/dL POC Glucose (mg/dL) 183 H 180 H (70-110) mg/dL Calcium (8.4-10.2) mg/dL Phosphorus (2.5-4.5) mg/dL Magnesium (1.6-2.3) mg/dL Prealbumin 8.4 L (18.0-42.0) mg/dL 06/18/23 06/19/23 06/19/23 Range/Units 16:53 06:17 06:21 Potassium 3.2 L (3.5-5.1) mmol/L BUN 3 L (7-17) mg/dL Creatinine 0.42 L (0.52-1.04) mg/dL Glucose 220 H (74-99) mg/dL POC Glucose (mg/dL) 222 H (70-110) mg/dL Calcium 7.8 L (8.4-10.2) mg/dL Phosphorus 1.3 L 2.0 L (2.5-4.5) mg/dL Magnesium 1.4 L (1.6-2.3) mg/dL Prealbumin (18.0-42.0) mg/dL
[2023-06-19] MEDS: HYDROmorphone 1 MG/ML 1 ML SYRINGE IVP PRN ×2 (14:38→22:04)
[2023-06-19] MEDS: hydrALAZINE HCL 20 MG/ML 1 ML VIAL IV PRN (16:07)
[2023-06-19 16:20] LABS: Glucose,Whole Blood 189 mg/dL (70-110)
[2023-06-19] MEDS: ENALAPRILAT 1.25 MG/ML 1 ML VIAL IVP PRN (18:46)
[2023-06-19 20:23] LABS: Glucose,Whole Blood 276 mg/dL (70-110)
[2023-06-20] MEDS: METOCLOPRAMIDE 5 MG/ML 2 ML VIAL IVP SCH ×4 (00:59→17:30)
[2023-06-20] MEDS: SODIUM CHLORIDE 0.9% 1,000 ML IV SCH ×2 (01:00→12:58)
[2023-06-20] MEDS: 1: MVI, ADULT NO.4 WITH VIT K 10 ML, TRACE (CONC-1ML/DOSE) 1 ML in AMINO ACID 5%-D15W+LY IV SCH ×6 (01:49→08:07)
[2023-06-20] MEDS: hydrALAZINE HCL 20 MG/ML 1 ML VIAL IV PRN ×2 (02:03→15:11)
[2023-06-20] MEDS: ONDANSETRON 4 MG/2 ML VIAL IVP PRN ×2 (02:03→13:07)
[2023-06-20] MEDS: ENALAPRILAT 1.25 MG/ML 1 ML VIAL IVP PRN ×2 (03:09→15:47)
[2023-06-20] MEDS: HYDROmorphone 1 MG/ML 1 ML SYRINGE IVP PRN ×4 (03:43→21:06)
[2023-06-20 05:49] LABS: African American GFR (CKD) >90 (>60 ml/min/1.73 sqM); Anion Gap 8 mmol/L; Blood Urea Nitrogen 4 mg/dL (7-17); Carbon Dioxide 26 mmol/L (22-30); Chloride 102 mmol/L (98-107); Glucose 296 mg/dL (74-99); Magnesium 1.5 mg/dL (1.6-2.3); Non-African American GFR(CKD) >90 (>60 ml/min/1.73 sqM); Phosphorus 2.2 mg/dL (2.5-4.5); Potassium 3.6 mmol/L (3.5-5.1); Sodium 136 mmol/L (137-145)
[2023-06-20 06:28] LABS: Glucose,Whole Blood 288 mg/dL (70-110)
[2023-06-20] MEDS: INSULIN REGULAR 100 UNIT/ML VIAL (IV) SQ SCH ×3 (06:34→16:13)
[2023-06-20] MEDS: HEPARIN SODIUM,PORCINE 5,000 UNIT/ML 1 ML VIAL SQ SCH ×2 (09:00→20:50)
[2023-06-20] MEDS: levETIRAcetam IV 500 MG/5 ML VIAL IVP SCH ×2 (09:00→20:51)
[2023-06-20] MEDS: MAGNESIUM SULFATE-D5W PMX 1 GM in DEXTROSE/WATER 1 100ML.BAG IVPB SCH ×2 (09:00→10:05)
[2023-06-20] MEDS: PANTOPRAZOLE 40 MG/10 ML VIAL IVP SCH ×2 (09:00→20:51)
[2023-06-20] MEDS ORDERED: SODIUM PHOSPHATE 15 MMOL in DEXTROSE 5% IN WATER 250 ML IVPB ONE ×2 (09:00)
[2023-06-20] MEDS: POTASSIUM CHLORIDE 10 MEQ in WATER FOR INJECTION 1 100ML.BAG IVPB SCH ×2 (09:01→10:44)
[2023-06-20] MEDS: PHENYTOIN SODIUM INJ 200 MG in SODIUM CHLORIDE 0.9% 36 ML IVPB SCH ×2 (09:12→21:26)
--- NOTE | 2023-06-20 10:16 | P.PN ---
Subjective Progress Note Date: 06/20/23 Principal diagnosis: Abdominal pain. Pulmonary/critical care consult dated 06/16/2023. This is a 68-year-old female seen today in the intensive care unit, room 257. The patient apparently was admitted to the hospital back on June 10 or abdominal pain. The patient was found have a small bowel obstruction. Today's postop day #1, status post exploratory laparotomy, extensive lysis of adhesions, and partial omentectomy. The surgery was done by Dr. Levi. Currently, the patient seemed be doing relatively well. She is on 3 L of oxygen. She's getting saline at 75 mL an hour. An NG tube in. A pain pump is available for her, in terms of pain control. We encourage her to do the incentive spirometry, every hour, and I notice, there is not one at the bedside, so I asked the nurse to order one. Laboratory data today includes a glucose of 142. From yesterday, white count was 7.7, hemoglobin 12.7, and platelet count was normal. Sodium 143, potassium 4.5, chlorides 109, CO2 19, anion gap 15, BUN 7, creatinine 0.59. Magnesium was 1.5. No recent chest x-ray. The patient is currently on Flagyl. Progress note dated 06/17/2023. 68-year-old female seen in consultation yesterday. She seen in room 257, intensive care unit. The patient is postoperative day #2, status post exploratory laparotomy, extensive lysis of adhesions, and partial omentectomy. The patient is currently on oxygen, at 2 L. An NG tube remains in place. She's getting saline at 75 mL an hour. She's doing reasonably well on her incentive spirometer. She is having an apparent reaction to chlorhexidine. I recommend some Benadryl. White count of 7.8, hemoglobin 11, hematocrit 33.6, and a normal platelet count. Sodium 142, potassium 3.8, chlorides 109, CO2 17, anion gap 16, BUN 6, and creatinine 0.46. Calcium is 8.1 with magnesium of 1.4. Progress note dated 06/18/2023. 68-year-old female seen in consultation 2 days ago. The patient still is in the intensive care unit, room 257. The patient has an NG tube in place, and is on room air. She is receiving saline at 75 mL an hour. Labs include a white count of 7, hemoglobin 11.4, hematocrit 34.4, and platelet count of 287,000. Sodium 140, potassium 3.2, chlorides 106, CO2 23, BUN 3, creatinine 0.43. Glucose 148. Calcium is 8. The patient does complain of abdominal tenderness. Progress note dated 06/19/2023. 68-year-old female seen in consultation 3 days ago. She seen today again in room 257. Patient still has the NG tube still in place. She's receiving saline at 75 mL an hour, and TPN at 30 mL an hour. The epidural pain catheter, has been removed. Sodium 137, potassium 3.2, chlorides 103, CO2 27, BUN 3, creatinine 0.42. Magnesium is 1.4. Phosphorus is 2.0. Chest x-ray from yesterday, shows no evidence of pleural effusion, pneumothorax, or focal consolidation. Progress note dated 06/20/2023. 68-year-old female seen in room 257. The NG tube has been removed. The patient's on room air. She is receiving saline at 75 mL an hour. She's getting TPN at 83 mL an hour. According to the nurse, she had an uneventful night. Labs today include a sodium 136, potassium 3.6, chlorides 102, CO2 26, BUN 4, creatinine 0.4. Glucose 288. Magnesium 1.5 phosphorus 2.2 and calcium 8.0. No chest x-ray today. Objective - Vital Signs Vital signs: Vital Signs Temp 97.7 F 06/20/23 04:00 Pulse 66 06/20/23 04:00 Resp 12 06/20/23 04:00 BP 171/89 06/20/23 04:00 Pulse Ox 95 06/20/23 04:00 FiO2 Intake & Output 06/19/23 06/20/23 06/20/23 18:59 06:59 18:59 Intake Total 1201 620 653.083 Output Total 175 500 Balance 1026 120 653.083 Weight 84.1 kg 86.9 kg Intake: IV 801 420 Mvi, Adult No.4 with Vit 240 120 K 10 ml Trace (Conc-1Ml/ Dose) 1 ml In Amino Acid 5%-D15w+Lytes*E* 1,000 ml @ 30 mls/hr IV .Q24H [facility] Rx#:[id number] Phenytoin Sodium Inj 200 36 mg In Sodium Chloride 0.9 % 36 ml @ 80 mls/hr IVPB Q12HR [facility] Rx#:[id number] Sodium Chloride 0.9% 1, 525 300 000 ml @ 75 mls/hr IV . [id number] [facility] Rx#:[id number] Intake, IV Titration 400 200 653.083 Amount Magnesium Sulfate-D5w Pmx 200 1 gm In Dextrose/Water 1 100ml.bag @ 100 mls/hr IVPB Q1H [facility] Rx#: [id number] Mvi, Adult No.4 with Vit 653.083 K 10 ml Trace (Conc-1Ml/ Dose) 1 ml In Amino Acid 5%-D15w+Lytes*E* 1,000 ml @ 85 mls/hr IV .BY DURATION [facility] Rx#: [id number] Potassium Chloride 20 meq 200 In Water For Injection 1 100ml.bag @ 50 mls/hr IVPB Q2H [facility] Rx#: [id number] Potassium Chloride 20 meq 200 In Water For Injection 1 100ml.bag @ 50 mls/hr IVPB Q2H [facility] Rx#: [id number] Output: Urine 175 500 Other: Voiding Method Bedside Commode Bedside Commode Diaper Diaper # Voids 1 2 # Bowel Movements 1 - Exam No acute distress, oriented 3. NG tube has been removed. Currently, the patient's on room air. HEENT examination is grossly unremarkable. Mucous membranes are moist. No oral lesions. Neck supple. Full range of motion. No adenopathy thyromegaly or neck vein distention. Cardiovascular examination reveals regular rhythm rate. S1-S2 normal. No S3 or S4. No discernible murmur noted. Heart sounds are distant. Heart rate 66 bpm. Lungs reveal minimal scattered rhonchi. No wheezes. No crackles. Breath sounds are equal. Saturations are 95 %. Abdomen soft, without bowel sounds. Abdomen tender. Extremities are intact. No cyanosis clubbing or edema. Skin is without rash or lesion. Neurologic examination is brief but nonfocal. - Labs CBC & Chem 7: 06/18/23 04:26 06/20/23 05:12 Labs: Abnormal Lab Results - Last 24 Hours (Table) 06/19/23 06/19/23 06/19/23 Range/Units 06:21 11:46 16:18 Sodium (137-145) mmol/L BUN (7-17) mg/dL Creatinine (0.52-1.04) mg/dL Glucose (74-99) mg/dL POC Glucose (mg/dL) 229 H 189 H (70-110) mg/dL Calcium (8.4-10.2) mg/dL Phosphorus (2.5-4.5) mg/dL Magnesium (1.6-2.3) mg/dL Triglycerides 290.00 H (0.00-149.00) mg/dL 06/19/23 06/20/23 06/20/23 Range/Units 20:21 05:12 06:27 Sodium 136 L (137-145) mmol/L BUN 4 L (7-17) mg/dL Creatinine 0.40 L (0.52-1.04) mg/dL Glucose 296 H (74-99) mg/dL POC Glucose (mg/dL) 276 H 288 H (70-110) mg/dL Calcium 8.0 L (8.4-10.2) mg/dL Phosphorus 2.2 L (2.5-4.5) mg/dL Magnesium 1.5 L (1.6-2.3) mg/dL Triglycerides (0.00-149.00) mg/dL Assessment and Plan Assessment: Postop day #5, S/P exploratory laparotomy, extensive lysis of adhesions, and partial omentectomy, for small bowel obstruction. Postoperative hypertension, treated with a pain pump, clonidine patch, and hydralazine, resolved. History of CVA. History of diabetes mellitus. History of gastroesophageal reflux disease. History of hyperlipidemia. History of hypertension. History of osteoarthritis. History of breast cancer. History of uterine cancer. Plan: Plan dated 06/16/2023. The patient is seen in the intensive care unit, room 257. She's currently resting comfortably. She is on 3 L of oxygen. Is getting saline at 75 mL an hour. Today is postoperative day #1. Labs, x-rays, and medications are reviewed. We encourage the patient to deep breathe, cough, and clear secretions, and as well, we recommended incentive spirometer, to be used hourly, while the patient is awake. We will continue to follow. The patient continues on Flagyl. No additional recommendations are made. Her blood pressure is under much better control. Her last 2 blood pressures are 135/50, and 130/52. Plan dated 06/17/2023. Today is postoperative day #2, status post exploratory laparotomy, extensive ly sis of adhesions, and partial omentectomy. The patient is seen in the intensive care unit, room 257. An NG tube remains in place. Her saturations, on room air, her adequate. She still receiving IV fluids, saline, at 75 mL an hour. She's doing reasonably well on her incentive spirometer. Labs, x-rays, and medications are all reviewed. Her most recent blood pressure is 164/64, with a mean of 98. Initially, in the intensive care unit, after surgery, she was hypertensive. We will continue to follow the patient, and make recommendations along the way. Prognosis is guarded. Plan dated 06/18/2023. Today is postoperative day #3, status post exploratory laparotomy, lysis of adhesions, and partial omentectomy. The patient is again seen in room 257. She's on room air. She has an NG tube in place. She does have abdominal tenderness. She's getting saline at 75 mL an hour. Labs, x-rays, and medications are reviewed. We will continue to follow make recommendations along the way. The patient's overall prognosis remains guarded. Plan dated 06/19/2023. Today is postoperative day #4. She is status post exploratory laparotomy, extensive lysis of adhesions, and partial omentectomy. The patient is seen today in room 257. Currently, she is on room air. The patient is receiving saline at 75 mL an hour. In addition, the patient's receiving TPN at 30 mL an hour. Epidural catheter has been removed. Labs, x-rays, and medications are reviewed. We will continue to follow the patient, and make recommendations along the way. Prognosis is guarded. Plan dated 06/20/2023. Today is postoperative day #5. The NG tube has been removed. The patient's on room air. The patient is receiving saline at 75 mL an hour, and TPN at 83 mL an hour. Labs, x-rays, and medications are all reviewed. The patient's overall prognosis remains guarded. She is moving in a positive direction. No additional recommendations are made at this time. Time with Patient: Less than 30
[2023-06-20 10:52] VITALS: BMI 35.0
[2023-06-20] MEDS ORDERED: METOPROLOL TARTRATE 5 MG/5 ML VIAL IVP PRN (10:54)
[2023-06-20 11:30] LABS: Glucose,Whole Blood 285 mg/dL (70-110)
[2023-06-20] MEDS: cloNIDine 0.3 MG/24HR PATCH TRANSDERM SCH (13:12)
--- NOTE | 2023-06-20 14:00 | P.PN ---
Subjective Progress Note Date: 06/20/23 CHIEF COMPLAINT: SBO HISTORY OF PRESENT ILLNESS: Patient is postop day #5 status post exploratory laparotomy with extensive lysis of adhesions and partial omentectomy. Patient is currently in the ICU as medr ajayflow. Patient is lying in bed. She reports her pain is controlled. She did have a bowel movement and flatus. She had nausea yesterday which she contributes to somebody's cologne. Nausea is improved. No vomiting. She has been up and ambulating. NG tube was removed yesterday. She tolerated the clear liquids. Afebrile. Sodium 136 potassium 3.2 magnesium 1.5 phosphorus 2.2 . Epidural Ralph catheter discontinued yesterday PHYSICAL EXAM: VITAL SIGNS: Reviewed. GENERAL: Well-developed in no acute distress. ABDOMEN: Soft. Mildly distended. minimal tenderness at incision site. Incisional dressing clean dry and intact. NEUROLOGIC: Alert and oriented. Cranial nerves II through XII grossly intact. ASSESSMENT: 1. Small bowel obstruction secondary to intra-abdominal adhesions. Status post exploratory laparotomy with extensive lysis of adhesions and partial omentectomy PLAN: -Continue clear liquid diet for today -Advance diet to Full liquids in Am -Continue TPN for nutrition support until oral intake increases -Continue Reglan -Magnesium and phosphorus being replaced -Incentive spirometer ordered -Encouraged patient to increase activity level -DVT prophylaxis subcu heparin Physician Supercharge Repair Supervisor note has been reviewed by physician. Signing provider agrees with the documented findings, assessment, and plan of care. I have personally seen and examined the patient, reviewed the CREW SUPERVISOR /PAs history, exam and MDM and agree with the assessment and plan as written. Based on total visit time, I have performed more than 50% of the visit. As above: Patient was doing well up until this morning. This afternoon she started having some nausea and abdominal discomfort. She feels bloated. She had episodes of vomiting today. She had a low-grade fever of 100. She is mildly tender left side of her abdomen. Incision is clean and dry. We'll order abdominal x-rays. Suspect ileus given degree of adhesio lysis on recent laparotomy. Keep nothing by mouth for now. Repeat CBC tomorrow. Objective - Vital Signs Vital signs: Vital Signs Temp 97.7 F 06/20/23 04:00 Pulse 66 06/20/23 08:00 Resp 12 06/20/23 04:00 BP 171/89 11/10/23 04:00 Pulse Ox 95 06/20/23 04:00 FiO2 Intake & Output 06/19/23 06/20/23 06/20/23 18:59 06:59 18:59 Intake Total 9757 504 9076.083 Output Total 175 500 800 Balance 4280 773 7748.083 Weight 84.1 kg 86.9 kg Intake: IV 756 936 0471 Mvi, Adult No.4 with Vit 240 120 850 K 10 ml Trace (Conc-1Ml/ Dose) 1 ml In Amino Acid 5%-D15w+Lytes*E* 1,000 ml @ 30 mls/hr IV .Q24H [facility] Rx#:[id number] Phenytoin Sodium Inj 200 36 mg In Sodium Chloride 0.9 % 36 ml @ 80 mls/hr IVPB Q12HR [facility] Rx#:[id number] Sodium Chloride 0.9% 1, 525 300 750 000 ml @ 75 mls/hr IV . [id number] [facility] Rx#:[id number] Intake, IV Titration 400 200 653.083 Amount Magnesium Sulfate-D5w Pmx 200 1 gm In Dextrose/Water 1 100ml.bag @ 100 mls/hr IVPB Q1H [facility] Rx#: [id number] Mvi, Adult No.4 with Vit 653.083 K 10 ml Trace (Conc-1Ml/ Dose) 1 ml In Amino Acid 5%-D15w+Lytes*E* 1,000 ml @ 85 mls/hr IV .BY DURATION [facility] Rx#: [id number] Potassium Chloride 20 meq 200 In Water For Injection 1 100ml.bag @ 50 mls/hr IVPB Q2H [facility] Rx#: [id number] Potassium Chloride 20 meq 200 In Water For Injection 1 100ml.bag @ 50 mls/hr IVPB Q2H [facility] Rx#: [id number] Output: Urine 175 500 800 Other: Voiding Method Bedside Commode Bedside Commode Bedside Commode Diaper Diaper Diaper # Voids 1 2 # Bowel Movements 1 - Labs CBC & Chem 7: 06/18/23 04:26 06/20/23 05:12 Labs: Abnormal Lab Results - Last 24 Hours (Table) 06/19/23 06/19/23 06/19/23 Range/Units 06:21 11:46 16:18 Sodium (137-145) mmol/L BUN (7-17) mg/dL Creatinine (0.52-1.04) mg/dL Glucose (74-99) mg/dL POC Glucose (mg/dL) 229 H 189 H (70-110) mg/dL Calcium (8.4-10.2) mg/dL Phosphorus (2.5-4.5) mg/dL Magnesium (1.6-2.3) mg/dL Triglycerides 290.00 H (0.00-149.00) mg/dL 06/19/23 06/20/23 06/20/23 Range/Units 20:21 05:12 06:27 Sodium 136 L (137-145) mmol/L BUN 4 L (7-17) mg/dL Creatinine 0.40 L (0.52-1.04) mg/dL Glucose 296 H (74-99) mg/dL POC Glucose (mg/dL) 276 H 288 H (70-110) mg/dL Calcium 8.0 L (8.4-10.2) mg/dL Phosphorus 2.2 L (2.5-4.5) mg/dL Magnesium 1.5 L (1.6-2.3) mg/dL Triglycerides (0.00-149.00) mg/dL
[2023-06-20] MEDS: LORazepam 2 MG/ML INJ IV PRN ×2 (14:43→17:30)
[2023-06-20] MEDS: 1: MVI, ADULT NO.4 WITH VIT K 10 ML, TRACE (CONC-1ML/DOSE) 1 ML, SODIUM CHLORIDE 4MEQ/ML IV SCH ×6 (14:51)
[2023-06-20 16:04] LABS: Glucose,Whole Blood 310 mg/dL (70-110)
--- NOTE | 2023-06-20 16:26 | P.PN ---
Subjective Progress Note Date: 06/20/23 (Small bowel obstruction secondary to adhesion) Progress note Date of service 06/20/[address] Siegel Patient seen [id number] today. She is still have the NG tube in place, she started on clear liquid however she had severe nausea and vomiting with the mild increase in hypertension which has been monitored and controlled with the when necessary medication IV. Meanwhile I did increase her Lopressor metoprolol tartrate i.e. 27.5 mg every 6 hours when necessary if the above do not help the blood pressure or if increased in the heart rate. Patient had hypomagnesemia supplemented and she will have tomorrow check again on the magnesium She has also electrolyte imbalance. She is also on TPN. 4 feeding with the drop and prealbumin. No seizure disorder Patient followed by pulmonary and critical care Dr. Carballo. Patient followed by Dr. Hart and surgical team. Status post exploratory laparotomy with severe adhesion has been resolving but still patient has now ileus. On the physical exam in ICU Conscious alert oriented able to communicate and NG tube in place she had lower extremities of thrombotic stocking and also on heparin subcu. Head was normocephalic and atraumatic, pupil equal reactive Oropharynx she had only one tooth upper and 2 tenderness lower essentially no other molars. Neck was supple no JVD no thyromegaly no lymphadenopathy trachea midline. Chest was clear no wheezes no rhonchi's Heart regular sinus rhythm Abdomen positive tenderness on palpation could not tolerate percussion, distended had episode of nausea and vomiting unable to tolerate the clear liquid diet no bowel movement no diarrhea. Extremities: Positive pulses, of thrombotic stocking. Neurologically: No seizure disorder, no recent seizure. Assessment: #1 could not restart any oral tablet her pills with the not resolving her ileus or distention of the abdomen or the nausea and vomiting and that is normal bowel movement and this is the answer for the nurses that he called me last night to start oral medication. #2 status post exploratory laparotomy for adhesions and bowel obstruction. History of seizure disorder Hypertension resistant. Still nausea and vomiting intermittent. Plan: Continue the IV medication and with adjusted today as well. Wait for the resolution of the ileus postoperative. Continue TPN. Her surgical team Replacement of the electrolyte magnesium potassium phosphate. Vital signs stable and afebrile and respiratory stable with stable oxygen saturation Objective - Vital Signs Vital signs: Vital Signs Temp 98.5 F 06/20/23 08:00 Pulse 95 06/20/23 08:00 Resp 20 06/20/23 08:00 BP 166/68 06/20/23 08:00 Pulse Ox 95 06/20/23 04:00 FiO2 Intake & Output 06/19/23 06/20/23 06/20/23 18:59 06:59 18:59 Intake Total 4881 617 1074.033 Output Total 699 122 6856 Balance 8353 473 7306.033 Weight 84.1 kg 86.9 kg 86.9 kg Intake: IV 592 638 7205 Mvi, Adult No.4 with Vit 703 255 1490 K 10 ml Trace (Conc-1Ml/ Dose) 1 ml In Amino Acid 5%-D15w+Lytes*E* 1,000 ml @ 30 mls/hr IV .Q24H [facility] Rx#:[id number] Phenytoin Sodium Inj 200 36 80 mg In Sodium Chloride 0.9 % 36 ml @ 80 mls/hr IVPB Q12HR [facility] Rx#:[id number] Sodium Chloride 0.9% 1, 940 728 0759 000 ml @ 75 mls/hr IV . [id number] [facility] Rx#:[id number] Intake, IV Titration 347 421 9895.033 Amount Magnesium Sulfate-D5w Pmx 200 1 gm In Dextrose/Water 1 100ml.bag @ 100 mls/hr IVPB Q1H [facility] Rx#: [id number] Magnesium Sulfate-D5w Pmx 200 1 gm In Dextrose/Water 1 100ml.bag @ 100 mls/hr IVPB Q1H [facility] Rx#: [id number] Mvi, Adult No.4 with Vit 853.033 K 10 ml Trace (Conc-1Ml/ Dose) 1 ml In Amino Acid 5%-D15w+Lytes*E* 1,000 ml @ 85 mls/hr IV .BY DURATION [facility] Rx#: [id number] Potassium Chloride 10 meq 200 In Water For Injection 1 100ml.bag @ 100 mls/hr IVPB Q1H [facility] Rx#: [id number] Potassium Chloride 20 meq 200 In Water For Injection 1 100ml.bag @ 50 mls/hr IVPB Q2H [facility] Rx#: [id number] Potassium Chloride 20 meq 200 In Water For Injection 1 100ml.bag @ 50 mls/hr IVPB Q2H [facility] Rx#: [id number] Sodium Phosphate 15 mmol 250 In Dextrose 5% in Water 250 ml @ 127.5 mls/hr IVPB ONCE ONE Rx#: [id number] Output: Urine 822 313 3452 Other: Voiding Method Bedside Commode Bedside Commode Bedside Commode Diaper Diaper External Catheter # Voids 1 2 # Bowel Movements 1 - Labs CBC & Chem 7: 06/18/23 04:26 06/20/23 05:12 Labs: Abnormal Lab Results - Last 24 Hours (Table) 06/19/23 06/19/23 06/19/23 Range/Units 06:21 16:18 20:21 Sodium (137-145) mmol/L BUN (7-17) mg/dL Creatinine (0.52-1.04) mg/dL Glucose (74-99) mg/dL POC Glucose (mg/dL) 189 H 276 H (70-110) mg/dL Calcium (8.4-10.2) mg/dL Phosphorus (2.5-4.5) mg/dL Magnesium (1.6-2.3) mg/dL Triglycerides 290.00 H (0.00-149.00) mg/dL 06/20/23 06/20/23 06/20/23 Range/Units 05:12 06:27 11:29 Sodium 136 L (137-145) mmol/L BUN 4 L (7-17) mg/dL Creatinine 0.40 L (0.52-1.04) mg/dL Glucose 296 H (74-99) mg/dL POC Glucose (mg/dL) 288 H 285 H (70-110) mg/dL Calcium 8.0 L (8.4-10.2) mg/dL Phosphorus 2.2 L (2.5-4.5) mg/dL Magnesium 1.5 L (1.6-2.3) mg/dL Triglycerides (0.00-149.00) mg/dL 06/20/23 Range/Units 16:03 Sodium (137-145) mmol/L BUN (7-17) mg/dL Creatinine (0.52-1.04) mg/dL Glucose (74-99) mg/dL POC Glucose (mg/dL) 310 H (70-110) mg/dL Calcium (8.4-10.2) mg/dL Phosphorus (2.5-4.5) mg/dL Magnesium (1.6-2.3) mg/dL Triglycerides (0.00-149.00) mg/dL
--- NOTE | 2023-06-20 17:46 | XR ---
EXAMINATION TYPE: XR abdomen complete w decub DATE OF EXAM: 06/20/2023 5:34 PM CLINICAL INDICATION:Female, 68 years old with history of Evaluate ileus, pain; [facility] COMPARISON: None. TECHNIQUE: Upright, supine, left lateral decubitus views of the abdomen. FINDINGS: There is mild/moderate gaseous distention throughout the small bowel loops and colon, with a small am ount of residual contrast seen throughout the colon. A large amount of pneumoperitoneum is not identi fied. Clustered surgical clips in the right upper quadrant suggestive of cholecystectomy. Small foci of radiodensity in the left upper quadrant are judged to most likely represent flecks of residual con trast. Craniocaudally oriented skin sandor over the abdomen suggestive of recent surgery. Partially seen clips towards the right axilla and partially seen left arm PICC line. Heart size is mildly promi nent. Mild degenerative changes throughout the spine and moderate bilateral hip osteoarthropathy. IMPRESSION: Bowel gas pattern likely reflective of ileus. No gross free air detected.
[2023-06-20 20:07] LABS: Glucose,Whole Blood 287 mg/dL (70-110)
[2023-06-21] MEDS: METOCLOPRAMIDE 5 MG/ML 2 ML VIAL IVP SCH ×5 (00:03→23:19)
[2023-06-21] MEDS: HYDROmorphone 1 MG/ML 1 ML SYRINGE IVP PRN ×2 (01:48→11:40)
[2023-06-21] MEDS: 1: MVI, ADULT NO.4 WITH VIT K 10 ML, TRACE (CONC-1ML/DOSE) 1 ML, SODIUM CHLORIDE 4MEQ/ML IV SCH ×12 (02:00→18:08)
[2023-06-21] MEDS: SODIUM CHLORIDE 0.9% 1,000 ML IV SCH ×2 (02:01→15:08)
[2023-06-21] MEDS: hydrALAZINE HCL 20 MG/ML 1 ML VIAL IV PRN ×2 (05:45→15:05)
[2023-06-21 05:55] LABS: Glucose,Whole Blood 280 mg/dL (70-110)
[2023-06-21] MEDS: INSULIN REGULAR 100 UNIT/ML VIAL (IV) SQ SCH ×3 (06:48→18:08)
[2023-06-21 08:24] LABS: ALT 35 U/L (4-34); AST 30 U/L (14-36); African American GFR (CKD) >90 (>60 ml/min/1.73 sqM); Albumin 2.7 g/dL (3.5-5.0); Albumin/Globulin Ratio 1.1; Alkaline Phosphatase 147 U/L (38-126); Anion Gap 8 mmol/L; Blood Urea Nitrogen 13 mg/dL (7-17); Calcium 8.1 mg/dL (8.4-10.2); Carbon Dioxide 26 mmol/L (22-30); Chloride 102 mmol/L (98-107); Globulin 2.5 g/dL; Glucose 321 mg/dL (74-99); Non-African American GFR(CKD) >90 (>60 ml/min/1.73 sqM); Phosphorus 3.1 mg/dL (2.5-4.5); Sodium 136 mmol/L (137-145); Total Bilirubin 0.6 mg/dL (0.2-1.3); Total Protein 5.2 g/dL (6.3-8.2)
[2023-06-21] MEDS: PANTOPRAZOLE 40 MG/10 ML VIAL IVP SCH ×2 (10:00→20:35)
[2023-06-21] MEDS: HEPARIN SODIUM,PORCINE 5,000 UNIT/ML 1 ML VIAL SQ SCH ×2 (10:01→20:36)
[2023-06-21] MEDS: bisacodyL 10 MG SUPP RECTAL SCH (10:01)
[2023-06-21] MEDS: levETIRAcetam IV 500 MG/5 ML VIAL IVP SCH ×2 (10:01→20:36)
--- NOTE | 2023-06-21 10:48 | P.PN ---
Subjective Progress Note Date: 06/21/23 This is a 68-year-old female seen today in the intensive care unit, room 257. The patient apparently was admitted to the hospital back on June 10 or abdominal pain. The patient was found have a small bowel obstruction. Today's postop day #1, status post exploratory laparotomy, extensive lysis of adhesions, and partial omentectomy. The surgery was done by Dr. Levi. Currently, the patient seemed be doing relatively well. She is on 3 L of oxygen. She's getting saline at 75 mL an hour. An NG tube in. A pain pump is available for her, in terms of pain control. We encourage her to do the incentive spirometry, every hour, and I notice, there is not one at the bedside, so I asked the nurse to order one. Laboratory data today includes a glucose of 142. From yesterday, white count was 7.7, hemoglobin 12.7, and platelet count was normal. Sodium 143, potassium 4.5, chlorides 109, CO2 19, anion gap 15, BUN 7, creatinine 0.59. Magnesium was 1.5. No recent chest x-ray. The patient is currently on Flagyl. Progress note dated 06/17/2023. 68-year-old female seen in consultation yesterday. She seen in room 257, intensive care unit. The patient is postoperative day #2, status post e xploratory laparotomy, extensive lysis of adhesions, and partial omentectomy. The patient is currently on oxygen, at 2 L. An NG tube remains in place. She's getting saline at 75 mL an hour. She's doing reasonably well on her incentive spirometer. She is having an apparent reaction to chlorhexidine. I recommend some Benadryl. White count of 7.8, hemoglobin 11, hematocrit 33.6, and a normal platelet count. Sodium 142, potassium 3.8, chlorides 109, CO2 17, anion gap 16, BUN 6, and creatinine 0.46. Calcium is 8.1 with magnesium of 1.4. Progress note dated 06/18/2023. 68-year-old female seen in consultation 2 days ago. The patient still is in the intensive care unit, room 257. The patient has an NG tube in place, and is on room air. She is receiving saline at 75 mL an hour. Labs include a white count of 7, hemoglobin 11.4, hematocrit 34.4, and platelet count of 287,000. Sodium 140, potassium 3.2, chlorides 106, CO2 23, BUN 3, creatinine 0.43. Glucose 148. Calcium is 8. The patient does complain of abdominal tenderness. Progress note dated 06/19/2023. 68-year-old female seen in consultation 3 days ago. She seen today again in room 257. Patient still has the NG tube still in place. She's receiving saline at 75 mL an hour, and TPN at 30 mL an hour. The epidural pain catheter, has been removed. Sodium 137, potassium 3.2, chlorides 103, CO2 27, BUN 3, creatinine 0.42. Magnesium is 1.4. Phosphorus is 2.0. Chest x-ray from yesterday, shows no evidence of pleural effusion, pneumothorax, or focal consolidation. Progress note dated 06/20/2023. 68-year-old female seen in room 257. The NG tube has been removed. The patient's on room air. She is receiving saline at 75 mL an hour. She's getting TPN at 83 mL an hour. According to the nurse, she had an uneventful night. Labs today include a sodium 136, potassium 3.6, chlorides 102, CO2 26, BUN 4, creatinine 0.4. Glucose 288. Magnesium 1.5 phosphorus 2.2 and calcium 8.0. No chest x-ray today. The patient is seen today 06/21/2023 in follow-up on the regular medical floor. She is awake and alert in no acute distress. Resting comfortably in bed. Maintaining good O2 saturations in the 90s on room air. Continues to work with the incentive spirometer. Normal saline at 75 once per hour. She is being nourished with TPN at 85 ML's per hour. Sodium 136. Potassium 4.0. Bicarb 26. BUN 13. Creatinine 0.40. Glucose 321. AST 30. ALT 35. Albumin 2.7. She is continued on heparin for DVT prophylaxis. Abdominal x-ray revealed bowel gas pattern likely reflective of ileus. No gross free air detected. NG tube was removed on 06/19/2023. Objective - Vital Signs Vital signs: Vital Signs Temp 98.2 F 06/21/23 06:42 Pulse 78 06/21/23 06:42 Resp 17 06/21/23 06:42 BP 182/69 06/21/23 06:42 Pulse Ox 95 06/21/23 06:42 FiO2 Intake & Output 06/20/23 06/21/23 06/21/23 18:59 06:59 18:59 Intake Total 4723.033 Output Total 2200 Balance 2523.033 Weight 86.9 kg 86.9 kg Intake: IV 2620 Fat Emulsion 20% 250 ml @ 340 20.833 mls/hr IV SuWe@ 1800 [facility] Rx#:[id number] Mvi, Adult No.4 with Vit 1075 K 10 ml Trace (Conc-1Ml/ Dose) 1 ml In Amino Acid 5%-D15w+Lytes*E* 1,000 ml @ 30 mls/hr IV .Q24H ONE Rx#:[id number] Phenytoin Sodium Inj 200 80 mg In Sodium Chloride 0.9 % 36 ml @ 80 mls/hr IVPB Q12HR [facility] Rx#:[id number] Sodium Chloride 0.9% 1, 1125 000 ml @ 75 mls/hr IV . [id number] [facility] Rx#:[id number] Intake, IV Titration 2103.033 Amount Magnesium Sulfate-D5w Pmx 200 1 gm In Dextrose/Water 1 100ml.bag @ 100 mls/hr IVPB Q1H [facility] Rx#: [id number] Mvi, Adult No.4 with Vit 853.033 K 10 ml Trace (Conc-1Ml/ Dose) 1 ml In Amino Acid 5%-D15w+Lytes*E* 1,000 ml @ 85 mls/hr IV .BY DURATION [facility] Rx#: [id number] Potassium Chloride 10 meq 200 In Water For Injection 1 100ml.bag @ 100 mls/hr IVPB Q1H [facility] Rx#: [id number] Sodium Chloride 0.9% 1, 600 000 ml @ 75 mls/hr IV . [id number] [facility] Rx#:[id number] Sodium Phosphate 15 mmol 250 In Dextrose 5% in Water 250 ml @ 127.5 mls/hr IVPB ONCE ONE Rx#: [id number] Output: Urine 1900 Emesis 300 Other: Voiding Method Bedside Commode External Catheter External Catheter # Voids 1 700 - Exam GENERAL EXAM: Alert, pleasant 68-year-old female, on room air, fairly comfortable in no apparent distress. HEAD: Normocephalic. EYES: Normal reaction of pupils, equal size. NOSE: Clear with pink turbinates. THROAT: No erythema or exudates. NECK: No masses, no JVD. CHEST: No chest wall deformity. LUNGS: Equal air entry with no crackles, wheeze, rhonchi or dullness. CVS: S1 and S2 normal with no audible murmur, regular rhythm. ABDOMEN: Mild tenderness at incision site. Dressing dry and intact. Mild distention. SPINE: No scoliosis or deformity SKIN: No rashes CENTRAL NERVOUS SYSTEM: No focal deficits, tone is normal in all 4 extremities. EXTREMITIES: There is no peripheral edema. No clubbing, no cyanosis. Peripheral pulses are intact. - Labs CBC & Chem 7: 06/18/23 04:26 06/21/23 07:21 Labs: Abnormal Lab Results - Last 24 Hours (Table) 06/20/23 06/20/23 06/20/23 Range/Units 11:29 16:03 20:06 Sodium (137-145) mmol/L Creatinine (0.52-1.04) mg/dL Glucose (74-99) mg/dL POC Glucose (mg/dL) 285 H 310 H 287 H (70-110) mg/dL Calcium (8.4-10.2) mg/dL ALT (4-34) U/L Alkaline Phosphatase (38-126) U/L Total Protein (6.3-8.2) g/dL Albumin (3.5-5.0) g/dL 06/21/23 06/21/23 Range/Units 05:53 07:21 Sodium 136 L (137-145) mmol/L Creatinine 0.40 L (0.52-1.04) mg/dL Glucose 321 H (74-99) mg/dL POC Glucose (mg/dL) 280 H (70-110) mg/dL Calcium 8.1 L (8.4-10.2) mg/dL ALT 35 H (4-34) U/L Alkaline Phosphatase 147 H (38-126) U/L Total Protein 5.2 L (6.3-8.2) g/dL Albumin 2.7 L (3.5-5.0) g/dL Assessment and Plan Assessment: Small bowel obstruction secondary to intra-abdominal adhesions. Status post exploratory laparotomy with extensive lysis of adhesions and partial omentectomy. Post operative day #6 Postoperative hypertension, treated with pain pump, clonidine patch, hydralazine. Improved History of CVA History of diabetes mellitus History of esophageal reflux disease Hyperlipidemia Hypertension Osteoarthritis History of breast cancer History of uterine cancer Plan: The patient was seen and evaluated Medications and labs reviewed Continue to work with the incentive spirometer Currently on room air Remains on TPN/lipids X-ray shows possible ileus Currently nothing by mouth Increase her activity as tolerated We will continue to follow I have personally seen and examined the patient, performed the documentation and the assessment and plan as written. Number of minutes spent on the visit: 10.
[2023-06-21] MEDS: PHENYTOIN SODIUM INJ 200 MG in SODIUM CHLORIDE 0.9% 36 ML IVPB SCH ×2 (11:17→21:22)
--- NOTE | 2023-06-21 11:43 | P.PN ---
Progress Note - Text Progress Note Date: 06/21/23 Patient states that she's had 1 episode of emesis. Nonbloody. Abdominal pain is minimal. Abdomen is soft. We'll trial ice chips.
[2023-06-21 11:52] LABS: Glucose,Whole Blood 283 mg/dL (70-110)
--- NOTE | 2023-06-21 11:55 | P.PN ---
Subjective Progress Note Date: 06/21/23 Progress note Date of service 06/21/[address] Siegel Patient seen and evaluated [id number] on 476 bed 1 Patient transferred from the ICU for the floor. On seeing the patient she was on the commode after she had rectal suppository with the underlying post operative ileus meanwhile she has been catching the pen for vomiting which is excessive as well as her pain level has been increased fr om this morning nausea and vomiting and pain 3-5. Discussed with her nurse Maritza OROPEZA to be given her Reglan. And also pain medication. Still hypertensive and blood pressure 182/69 mean 106, temperature 98.2 ORAL, pulse rate 78/m, respiratory rate 17 and still she has any abdominal pain X-ray of the abdomen today indicating postoperative ileus. Still on IV blood pressure medication as well due to not complete resolution of her distention of the abdomen and nausea and the vomiting. Patient conscious alert sitting on the commode. HEENT negative no changes Neck was supple no JVD no thyromegaly no lymphadenopathy trachea midline. Chest she has history of COPD and she had resection of the breast for breast cancer Heart regular sinus rhythm Abdomen: Tender, distended , tympanitic tender with percussion. With the post operative ileus. Extremities: No edema. Pulses Neurologically she still on IV medication for seizure, no evidence of seizure has been. Her hospitalization. Assessment: #1 admitted with small bowel obstruction secondary to adhesions #2 status post exploratory laparotomy #3 post operative ileus with the abdominal pain. #4 resistant hypertension #5 pain not well controlled #6 protein calorie deficiency was low prealbumin secondary to the above #7 on TPN for nutritional support. Plan: #1 continue monitoring pain, nausea and vomiting with the support of medication. #2 continue the TPN and nu nutritional support #3 continue the IV medication with the hypertension uncontrolled. Objective - Vital Signs Vital signs: Vital Signs Temp 98.2 F 06/21/23 06:42 Pulse 78 06/21/23 06:42 Resp 17 06/21/23 06:42 BP 182/69 06/21/23 06:42 Pulse Ox 95 06/21/23 06:42 FiO2 Intake & Output 06/20/23 06/21/23 06/21/23 18:59 06:59 18:59 Intake Total 4723.033 Output Total 2200 Balance 2523.033 Weight 86.9 kg 86.9 kg Intake: IV 2620 Fat Emulsion 20% 250 ml @ 340 20.833 mls/hr IV SuWe@ 1800 [facility] Rx#:[id number] Mvi, Adult No.4 with Vit 1075 K 10 ml Trace (Conc-1Ml/ Dose) 1 ml In Amino Acid 5%-D15w+Lytes*E* 1,000 ml @ 30 mls/hr IV .Q24H [facility] Rx#:[id number] Phenytoin Sodium Inj 200 80 mg In Sodium Chloride 0.9 % 36 ml @ 80 mls/hr IVPB Q12HR [facility] Rx#:[id number] Sodium Chloride 0.9% 1, 1125 000 ml @ 75 mls/hr IV . [id number] [facility] Rx#:[id number] Intake, IV Titration 2103.033 Amount Magnesium Sulfate-D5w Pmx 200 1 gm In Dextrose/Water 1 100ml.bag @ 100 mls/hr IVPB Q1H [facility] Rx#: [id number] Mvi, Adult No.4 with Vit 853.033 K 10 ml Trace (Conc-1Ml/ Dose) 1 ml In Amino Acid 5%-D15w+Lytes*E* 1,000 ml @ 85 mls/hr IV .BY DURATION [facility] Rx#: [id number] Potassium Chloride 10 meq 200 In Water For Injection 1 100ml.bag @ 100 mls/hr IVPB Q1H [facility] Rx#: [id number] Sodium Chloride 0.9% 1, 600 000 ml @ 75 mls/hr IV . [id number] [facility] Rx#:[id number] Sodium Phosphate 15 mmol 250 In Dextrose 5% in Water 250 ml @ 127.5 mls/hr IVPB ONCE ONE Rx#: [id number] Output: Urine 1900 Emesis 300 Other: Voiding Method Bedside Commode External Catheter External Catheter External Catheter # Voids 1 700 - Labs CBC & Chem 7: 06/18/23 04:26 06/21/23 07:21 Labs: Abnormal Lab Results - Last 24 Hours (Table) 06/20/23 06/20/23 06/21/23 Range/Units 16:03 20:06 05:53 Sodium (137-145) mmol/L Creatinine (0.52-1.04) mg/dL Glucose (74-99) mg/dL POC Glucose (mg/dL) 310 H 287 H 280 H (70-110) mg/dL Calcium (8.4-10.2) mg/dL ALT (4-34) U/L Alkaline Phosphatase (38-126) U/L Total Protein (6.3-8.2) g/dL Albumin (3.5-5.0) g/dL 06/21/23 Range/Units 07:21 Sodium 136 L (137-145) mmol/L Creatinine 0.40 L (0.52-1.04) mg/dL Glucose 321 H (74-99) mg/dL POC Glucose (mg/dL) (70-110) mg/dL Calcium 8.1 L (8.4-10.2) mg/dL ALT 35 H (4-34) U/L Alkaline Phosphatase 147 H (38-126) U/L Total Protein 5.2 L (6.3-8.2) g/dL Albumin 2.7 L (3.5-5.0) g/dL
[2023-06-21 16:54] LABS: Glucose,Whole Blood 238 mg/dL (70-110)
[2023-06-21 19:50] LABS: Glucose,Whole Blood 239 mg/dL (70-110)
[2023-06-21] MEDS: HYDROcodone/APAP 5-325MG 1 EACH TAB PO PRN (20:35)
[2023-06-22] MEDS: 1: MVI, ADULT NO.4 WITH VIT K 10 ML, TRACE (CONC-1ML/DOSE) 1 ML, SODIUM CHLORIDE 4MEQ/ML IV SCH ×12 (05:14→17:31)
[2023-06-22] MEDS: SODIUM CHLORIDE 0.9% 1,000 ML IV SCH ×2 (05:41→17:51)
[2023-06-22] MEDS: METOCLOPRAMIDE 5 MG/ML 2 ML VIAL IVP SCH ×4 (05:41→23:15)
[2023-06-22 05:54] LABS: Glucose,Whole Blood 221 mg/dL (70-110)
[2023-06-22] MEDS: INSULIN REGULAR 100 UNIT/ML VIAL (IV) SQ SCH ×3 (06:56→17:51)
[2023-06-22 07:58] LABS: African American GFR (CKD) >90 (>60 ml/min/1.73 sqM); Anion Gap 10 mmol/L; Blood Urea Nitrogen 9 mg/dL (7-17); Calcium 8.2 mg/dL (8.4-10.2); Carbon Dioxide 23 mmol/L (22-30); Chloride 103 mmol/L (98-107); Glucose 253 mg/dL (74-99); Magnesium 1.5 mg/dL (1.6-2.3); Non-African American GFR(CKD) >90 (>60 ml/min/1.73 sqM); Phosphorus 2.9 mg/dL (2.5-4.5); Sodium 136 mmol/L (137-145)
[2023-06-22] MEDS: hydrALAZINE HCL 20 MG/ML 1 ML VIAL IV PRN ×3 (08:07→18:29)
[2023-06-22] MEDS: HYDROcodone/APAP 5-325MG 1 EACH TAB PO PRN (08:07)
[2023-06-22] MEDS: HEPARIN SODIUM,PORCINE 5,000 UNIT/ML 1 ML VIAL SQ SCH ×2 (08:07→23:15)
[2023-06-22] MEDS: PANTOPRAZOLE 40 MG/10 ML VIAL IVP SCH ×2 (08:07→23:15)
[2023-06-22] MEDS: bisacodyL 10 MG SUPP RECTAL SCH (08:08)
[2023-06-22] MEDS: levETIRAcetam IV 500 MG/5 ML VIAL IVP SCH (08:08)
[2023-06-22] MEDS: MAGNESIUM SULFATE-D5W PMX 1 GM in DEXTROSE/WATER 1 100ML.BAG IVPB SCH ×2 (10:26→12:34)
--- NOTE | 2023-06-22 10:28 | P.PN ---
Subjective Progress Note Date: 06/22/23 This is a 68-year-old female seen today in the intensive care unit, room 257. The patient apparently was admitted to the hospital back on June 10 or abdominal pain. The patient was found have a small bowel obstruction. Today's postop day #1, status post exploratory laparotomy, extensive lysis of adhesions, and partial omentectomy. The surgery was done by Dr. Levi. Currently, the patient seemed be doing relatively well. She is on 3 L of oxygen. She's getting saline at 75 mL an hour. An NG tube in. A pain pump is available for her, in terms of pain control. We encourage her to do the incentive spirometry, every hour, and I notice, there is not one at the bedside, so I asked the nurse to order one. Laboratory data today includes a glucose of 142. From yesterday, white count was 7.7, hemoglobin 12.7, and platelet count was normal. Sodium 143, potassium 4.5, chlorides 109, CO2 19, anion gap 15, BUN 7, creatinine 0.59. Magnesium was 1.5. No recent chest x-ray. The patient is currently on Flagyl. Progress note dated 06/17/2023. 68-year-old female seen in consultation yesterday. She seen in room 257, intensive care unit. The patient is postoperative day #2, status post e xploratory laparotomy, extensive lysis of adhesions, and partial omentectomy. The patient is currently on oxygen, at 2 L. An NG tube remains in place. She's getting saline at 75 mL an hour. She's doing reasonably well on her incentive spirometer. She is having an apparent reaction to chlorhexidine. I recommend some Benadryl. White count of 7.8, hemoglobin 11, hematocrit 33.6, and a normal platelet count. Sodium 142, potassium 3.8, chlorides 109, CO2 17, anion gap 16, BUN 6, and creatinine 0.46. Calcium is 8.1 with magnesium of 1.4. Progress note dated 06/18/2023. 68-year-old female seen in consultation 2 days ago. The patient still is in the intensive care unit, room 257. The patient has an NG tube in place, and is on room air. She is receiving saline at 75 mL an hour. Labs include a white count of 7, hemoglobin 11.4, hematocrit 34.4, and platelet count of 287,000. Sodium 140, potassium 3.2, chlorides 106, CO2 23, BUN 3, creatinine 0.43. Glucose 148. Calcium is 8. The patient does complain of abdominal tenderness. Progress note dated 06/19/2023. 68-year-old female seen in consultation 3 days ago. She seen today again in room 257. Patient still has the NG tube still in place. She's receiving saline at 75 mL an hour, and TPN at 30 mL an hour. The epidural pain catheter, has been removed. Sodium 137, potassium 3.2, chlorides 103, CO2 27, BUN 3, creatinine 0.42. Magnesium is 1.4. Phosphorus is 2.0. Chest x-ray from yesterday, shows no evidence of pleural effusion, pneumothorax, or focal consolidation. Progress note dated 06/20/2023. 68-year-old female seen in room 257. The NG tube has been removed. The patient's on room air. She is receiving saline at 75 mL an hour. She's getting TPN at 83 mL an hour. According to the nurse, she had an uneventful night. Labs today include a sodium 136, potassium 3.6, chlorides 102, CO2 26, BUN 4, creatinine 0.4. Glucose 288. Magnesium 1.5 phosphorus 2.2 and calcium 8.0. No chest x-ray today. The patient is seen today 06/21/2023 in follow-up on the regular medical floor. She is awake and alert in no acute distress. Resting comfortably in bed. Maintaining good O2 saturations in the 90s on room air. Continues to work with the incentive spirometer. Normal saline at 75 once per hour. She is being nourished with TPN at 85 ML's per hour. Sodium 136. Potassium 4.0. Bicarb 26. BUN 13. Creatinine 0.40. Glucose 321. AST 30. ALT 35. Albumin 2.7. She is continued on heparin for DVT prophylaxis. Abdominal x-ray revealed bowel gas pattern likely reflective of ileus. No gross free air detected. NG tube was removed on 06/19/2023. The patient is seen today 06/22/2023 in follow-up on the regular medical floor. She is resting quite comfortably in bed. Awake and alert in no acute distress. She is maintaining good O2 saturations in the 90s on room air. She remains on TPN at 85 ML's per hour. Normal saline at 75 ML's per hour. She is thirsty. She is still on ice chips only. Sodium 136. Potassium 4.0. Bicarb 23. BUN 9. Creatinine 0.44. Magnesium 1.5. Glucose 253. Heparin for DVT prophylaxis. Objective - Vital Signs Vital signs: Vital Signs Temp 98.2 F 06/22/23 06:35 Pulse 72 06/22/23 06:35 Resp 20 06/22/23 06:35 BP 199/80 06/22/23 06:35 Pulse Ox 95 06/22/23 06:35 FiO2 Intake & Output 06/21/23 06/22/23 06/22/23 18:59 06:59 18:59 Intake Total 1019 Output Total 600 1550 Balance 419 -1550 Weight 86.9 kg Intake: Intake, IV Titration 1019 Amount Mvi, Adult No.4 with Vit 1019 K 10 ml Trace (Conc-1Ml/ Dose) 1 ml Sodium Chloride 4Meq/ml Vial 12 meq Potassium Chloride 10 meq In Amino Acid 5%- D15w+Lytes*E* 1,000 ml @ 85 mls/hr IV .BY DURATION [facility] Rx#:[id number] Output: Urine 600 1550 Other: Voiding Method External Catheter External Catheter External Catheter # Voids 1 # Bowel Movements 3 - Exam GENERAL EXAM: Alert, pleasant 68-year-old female, on room air, resting in bed, comfortable in no apparent distress. HEAD: Normocephalic. EYES: Normal reaction of pupils, equal size. NOSE: Clear with pink turbinates. THROAT: No erythema or exudates. NECK: No masses, no JVD. CHEST: No chest wall deformity. LUNGS: Equal air entry with no crackles, wheeze, rhonchi or dullness. CVS: S1 and S2 normal with no audible murmur, regular rhythm. ABDOMEN: Mild tenderness at incision site. Dressing dry and intact. Mild distention. SPINE: No scoliosis or deformity SKIN: No rashes CENTRAL NERVOUS SYSTEM: No focal deficits, tone is normal in all 4 extremities. EXTREMITIES: There is no peripheral edema. No clubbing, no cyanosis. Peripheral pulses are intact. - Labs CBC & Chem 7: 06/18/23 04:26 06/22/23 06:29 Labs: Abnormal Lab Results - Last 24 Hours (Table) 06/21/23 06/21/23 06/21/23 Range/Units 11:50 16:52 19:49 Sodium (137-145) mmol/L Creatinine (0.52-1.04) mg/dL Glucose (74-99) mg/dL POC Glucose (mg/dL) 283 H 238 H 239 H (70-110) mg/dL Calcium (8.4-10.2) mg/dL Magnesium (1.6-2.3) mg/dL 06/22/23 06/22/23 Range/Units 05:53 06:29 Sodium 136 L (137-145) mmol/L Creatinine 0.44 L (0.52-1.04) mg/dL Glucose 253 H (74-99) mg/dL POC Glucose (mg/dL) 221 H (70-110) mg/dL Calcium 8.2 L (8.4-10.2) mg/dL Magnesium 1.5 L (1.6-2.3) mg/dL Assessment and Plan Assessment: Small bowel obstruction secondary to intra-abdominal adhesions. Status post exploratory laparotomy with extensive lysis of adhesions and partial omentectomy. Post operative day #7 Postoperative hypertension, treated with pain pump, clonidine patch, hydralazine. Improved History of CVA History of diabetes mellitus History of esophageal reflux disease Hyperlipidemia Hypertension Osteoarthritis History of breast cancer History of uterine cancer Plan: The patient was seen and evaluated Medications and labs reviewed Magnesium being replaced Remains on TPN/lipids Currently nothing by mouth Increase her activity as tolerated Stable and on room air I have personally seen and examined the patient, performed the documentation and the assessment and plan as written. Number of minutes spent on the visit: 10.
[2023-06-22 11:04] LABS: Glucose,Whole Blood 275 mg/dL (70-110)
[2023-06-22] MEDS: PHENYTOIN SODIUM INJ 200 MG in SODIUM CHLORIDE 0.9% 36 ML IVPB SCH (11:58)
--- NOTE | 2023-06-22 13:47 | P.PN ---
Subjective Progress Note Date: 06/22/23 She is status post lysis of adhesions. "I am starving!" No reports of emesis or nausea in 24 hrs. Will start low fiber diet. Objective - Vital Signs Vital signs: Vital Signs Temp 98.2 F 06/22/23 06:35 Pulse 72 06/22/23 06:35 Resp 20 06/22/23 06:35 BP 182/73 06/22/23 10:29 Pulse Ox 95 06/22/23 06:35 FiO2 Intake & Output 06/21/23 06/22/23 06/22/23 18:59 06:59 18:59 Intake Total 1019 Output Total 600 1550 Balance 419 -1550 Weight 86.9 kg Intake: Intake, IV Titration 1019 Amount Mvi, Adult No.4 with Vit 1019 K 10 ml Trace (Conc-1Ml/ Dose) 1 ml Sodium Chloride 4Meq/ml Vial 12 meq Potassium Chloride 10 meq In Amino Acid 5%- D15w+Lytes*E* 1,000 ml @ 85 mls/hr IV .BY DURATION [facility] Rx#:[id number] Output: Urine 600 1550 Other: Voiding Method External Catheter External Catheter External Catheter # Voids 1 # Bowel Movements 3 - Labs CBC & Chem 7: 06/18/23 04:26 06/22/23 06:29 Labs: Abnormal Lab Results - Last 24 Hours (Table) 06/21/23 06/21/23 06/22/23 Range/Units 16:52 19:49 05:53 Sodium (137-145) mmol/L Creatinine (0.52-1.04) mg/dL Glucose (74-99) mg/dL POC Glucose (mg/dL) 238 H 239 H 221 H (70-110) mg/dL Calcium (8.4-10.2) mg/dL Magnesium (1.6-2.3) mg/dL 06/22/23 06/22/23 Range/Units 06:29 11:02 Sodium 136 L (137-145) mmol/L Creatinine 0.44 L (0.52-1.04) mg/dL Glucose 253 H (74-99) mg/dL POC Glucose (mg/dL) 275 H (70-110) mg/dL Calcium 8.2 L (8.4-10.2) mg/dL Magnesium 1.5 L (1.6-2.3) mg/dL
--- NOTE | 2023-06-22 15:11 | P.PN ---
Subjective Progress Note Date: 06/22/23 Progress note Date of service 06/22/[address] Siegel. Patient seen today [id number] and evaluated Vital sign temperature 98.0 F oral. Heart rate 77 bpm regular Respiratory rate 20 and normal Blood pressure 197/78 with a mean 117. Oxygen saturation 97%. Her CBG 275, her blood drawn today and blood glucose 253, renal function stable more than 90. Her magnesium 1.5 she replaced 2 bags of magnesium probably equal to 2 g.. NG tube has been removed. No nausea no vomiting No passing flatus or gases yet and still bowel is silent to me. Patient is conscious alert oriented able to communicate freely however she feel clinically better. Head was normocephalic and atraumatic Pupil was equal reactive, conjunctiva pink sclera nonicteric Oropharynx negative Neck was supple no JVD. Extremities she had left upper arm swelling and edematous with pitting edema and she had the PICC line suspicious of obstruction we'll plan for ultrasound of the left arm tomorrow to rule out obstruction with DVT. 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 And distended. Extremities no edema of the lower extremities and positive pulses Upper extremities where the PICC line is placed and have the TPN swollen pitting edema towards the elbow as well as above the elbow and to rule out obstruction or DVT which is unclear. We'll plan for ultrasound of left upper extremities tomorrow as well as d-dimer tomorrow. No erythema on the left arm to engage indicate inflammation. Neurologically: Stable no seizure disorder no confusion or disorientation no evidence of delirium Assessment: #1 slowly recovering from ileus of the abdomen post operative #2 status post exploratory laparotomy. Due to significant adhesion of the abdomen was previous multiple surgery #3 diabetes mellitus2 with hyperglycemia covered with insulin as patient stillract is notclear to for the use #4 hypertension and hypertensive heart disease with the persistent hypertension we'll continue the IV medication until open bowel. #5 electrolyte imbalance with low magnesium has been supplemented with protocol. #6 left upper extremities pitting edema in comparison with the right, she had PICC line and will order ultrasound to rule out any obstruction. Plan: #1 discussed was SANDIP Salas who stated that patient supplemented with magnesium already. Protocol order Dr. Carballo. #2 ultrasound of the left upper extremities to rule out obstruction #3 ordering d-dimer tomorrow as well Objective - Vital Signs Vital signs: Vital Signs Temp 98.0 F 06/22/23 12:54 Pulse 77 06/22/23 12:54 Resp 20 06/22/23 12:54 BP 197/78 06/22/23 12:54 Pulse Ox 97 06/22/23 12:54 FiO2 Intake & Output 06/21/23 06/22/23 06/22/23 18:59 06:59 18:59 Intake Total 1019 Output Total 600 1550 1999 Balance 419 -1550 -1999 Weight 86.9 kg Intake: Intake, IV Titration 1019 Amount Mvi, Adult No.4 with Vit 1019 K 10 ml Trace (Conc-1Ml/ Dose) 1 ml Sodium Chloride 4Meq/ml Vial 12 meq Potassium Chloride 10 meq In Amino Acid 5%- D15w+Lytes*E* 1,000 ml @ 85 mls/hr IV .BY DURATION [facility] Rx#:[id number] Output: Urine 600 1550 1999 Other: Voiding Method External Catheter External Catheter External Catheter # Voids 1 # Bowel Movements 3 - Labs CBC & Chem 7: 06/18/23 04:26 06/22/23 06:29 Labs: Abnormal Lab Results - Last 24 Hours (Table) 06/21/23 06/21/23 06/22/23 Range/Units 16:52 19:49 05:53 Sodium (137-145) mmol/L Creatinine (0.52-1.04) mg/dL Glucose (74-99) mg/dL POC Glucose (mg/dL) 238 H 239 H 221 H (70-110) mg/dL Calcium (8.4-10.2) mg/dL Magnesium (1.6-2.3) mg/dL 06/22/23 06/22/23 Range/Units 06:29 11:02 Sodium 136 L (137-145) mmol/L Creatinine 0.44 L (0.52-1.04) mg/dL Glucose 253 H (74-99) mg/dL POC Glucose (mg/dL) 275 H (70-110) mg/dL Calcium 8.2 L (8.4-10.2) mg/dL Magnesium 1.5 L (1.6-2.3) mg/dL
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
[2023-06-22 17:08] LABS: Glucose,Whole Blood 296 mg/dL (70-110)
[2023-06-22] MEDS: FAT EMULSION 20% 250 ML IV SCH (17:31)
[2023-06-22] MEDS: ENALAPRILAT 1.25 MG/ML 1 ML VIAL IVP PRN (17:50)
[2023-06-22 20:02] LABS: Glucose,Whole Blood 329 mg/dL (70-110)
[2023-06-22] MEDS: hydrALAZINE HCL 50 MG TAB PO SCH (23:17)
[2023-06-22] MEDS: METOPROLOL TARTRATE 50 MG TAB PO SCH (23:17)
[2023-06-22] MEDS: cloNIDine HCL 0.2 MG TAB PO SCH (23:17)
[2023-06-22] MEDS: levETIRAcetam 500 MG TAB PO SCH (23:19)
[2023-06-22] MEDS: carBAMazepine 300 MG CPMP.12HR PO SCH (23:22)
[2023-06-22] MEDS: HYDROmorphone 1 MG/ML 1 ML SYRINGE IVP PRN (23:44)
[2023-06-23] MEDS: PHENYTOIN SODIUM INJ 200 MG in SODIUM CHLORIDE 0.9% 36 ML IVPB SCH (01:32)
[2023-06-23] MEDS: amLODIPine 10 MG TAB PO SCH ×2 (04:46→23:24)
[2023-06-23] MEDS: lisinopriL 20 MG TAB PO SCH ×3 (04:46→23:24)
[2023-06-23] MEDS: METOCLOPRAMIDE 5 MG/ML 2 ML VIAL IVP SCH ×4 (05:29→23:31)
[2023-06-23] MEDS: 1: MVI, ADULT NO.4 WITH VIT K 10 ML, TRACE (CONC-1ML/DOSE) 1 ML, SODIUM CHLORIDE 4MEQ/ML IV SCH ×12 (05:50→17:03)
[2023-06-23 06:11] LABS: Glucose,Whole Blood 327 mg/dL (70-110)
[2023-06-23] MEDS: INSULIN REGULAR 100 UNIT/ML VIAL (IV) SQ SCH ×3 (06:20→17:07)
[2023-06-23 07:00] LABS: African American GFR (CKD) >90 (>60 ml/min/1.73 sqM); Anion Gap 10 mmol/L; Blood Urea Nitrogen 13 mg/dL (7-17); Calcium 8.4 mg/dL (8.4-10.2); Carbon Dioxide 22 mmol/L (22-30); Chloride 102 mmol/L (98-107); Glucose 309 mg/dL (74-99); Non-African American GFR(CKD) >90 (>60 ml/min/1.73 sqM); Phosphorus 3.9 mg/dL (2.5-4.5); Potassium 4.3 mmol/L (3.5-5.1); Sodium 134 mmol/L (137-145)
--- NOTE | 2023-06-23 08:24 | US ---
EXAMINATION TYPE: US venous doppler duplex UE LT DATE OF EXAM: 06/23/2023 COMPARISON: NONE CLINICAL INDICATION: Female, 68 years old with history of left arm swelling; Left arm swelling- pt markham s had picc line in place x 3-4 days SIDE PERFORMED: Left Left Arm: Positive for DVT within left Axillary, SVT within Basilic and Cephalic vein IMPRESSION: 1. Exam is positive for DVT within the left axillary vein and positive for SVT within the basilic and cephalic veins.
[2023-06-23] MEDS: SODIUM CHLORIDE 0.9% 1,000 ML IV SCH ×2 (08:55→20:44)
[2023-06-23] MEDS: bisacodyL 10 MG SUPP RECTAL SCH ×2 (08:57→09:05)
[2023-06-23] MEDS: HEPARIN SODIUM,PORCINE 5,000 UNIT/ML 1 ML VIAL SQ SCH (08:58)
[2023-06-23] MEDS: cloNIDine HCL 0.2 MG TAB PO SCH ×3 (08:58→23:25)
[2023-06-23] MEDS: hydrALAZINE HCL 50 MG TAB PO SCH ×3 (08:58→23:25)
[2023-06-23] MEDS: levETIRAcetam 500 MG TAB PO SCH ×2 (08:59→23:24)
[2023-06-23] MEDS: METOPROLOL TARTRATE 50 MG TAB PO SCH ×3 (09:00→23:25)
[2023-06-23] MEDS: PANTOPRAZOLE 40 MG/10 ML VIAL IVP SCH ×2 (09:01→23:25)
[2023-06-23] MEDS: carBAMazepine 300 MG CPMP.12HR PO SCH ×2 (09:04→23:24)
[2023-06-23] MEDS: HYDROcodone/APAP 5-325MG 1 EACH TAB PO PRN ×3 (09:20→17:08)
[2023-06-23] MEDS ORDERED: HEPARIN SODIUM 1,000 UN/ML (10ML VL) IV ONE (09:50)
[2023-06-23] MEDS ORDERED: HEPARIN SODIUM 1,000 UN/ML (10ML VL) IV PRN (09:50)
[2023-06-23] MEDS ORDERED: HEPARIN SOD,PORK IN 0.45% NACL 25,000 UNIT in 0.45% NACL 1 250ML.BAG IV SCH (10:00)
[2023-06-23] MEDS ORDERED: METOCLOPRAMIDE 5 MG/ML 2 ML VIAL IVP PRN (10:03)
[2023-06-23 11:33] LABS: Glucose,Whole Blood 290 mg/dL (70-110)
--- NOTE | 2023-06-23 11:49 | P.PN ---
Subjective Progress Note Date: 06/23/23 CHIEF COMPLAINT: SBO HISTORY OF PRESENT ILLNESS: Patient is postop day #8 status post exploratory laparotomy with extensive lysis of adhesions and partial omentectomy. Patient reports her pain is controlled. She does feel bloated with occasional nausea. She is having bowel movements. She's developed a DVT in the left arm. Medicine service has started anticoagulation. Afebrile. Elevated BP. D-dimer elevated at 3.12 sodium 134 potassium is 4.3 creatinine 0.45 phosphorus 3.9 magnesium 2.0 PHYSICAL EXAM: VITAL SIGNS: Reviewed. GENERAL: Well-developed in no acute distress. ABDOMEN: Soft. Mildly distended. minimal tenderness at incision site. Incisional dressing clean dry and intact. NEUROLOGIC: Alert and oriented. Cranial nerves II through XII grossly intact. ASSESSMENT: 1. Small bowel obstruction secondary to intra-abdominal adhesions. Status post exploratory laparotomy with extensive lysis of adhesions and partial omentectomy 2. Postoperative ileus improving 3. New DVT left arm PLAN: -Continue low fiber diet -Continue Reglan scheduled -Discontinue Dulcolax suppositories -Add Zofran scheduled for nausea and add Mylicon gas drops -Wean off TPN -Okay to start anticoagulation for DVT -Ok to keep Picc line in place for IV access -Incentive spirometer ordered -Encouraged patient to increase activity level -DVT prophylaxis subcu heparin Physician Wheel Aligner note has been reviewed by physician. Signing provider agrees with the documented findings, assessment, and plan of care. Objective - Vital Signs Vital signs: Vital Signs Temp 98.1 F 06/23/23 07:33 Pulse 68 06/23/23 07:33 Resp 18 06/23/23 07:33 BP 192/72 06/23/23 07:33 Pulse Ox 94 L 06/23/23 07:33 FiO2 Intake & Output 06/22/23 06/23/23 06/23/23 18:59 06:59 18:59 Output Total 2700 1000 Balance -2700 -1000 Output: Urine 2700 1000 Other: Voiding Method External Catheter External Catheter # Voids 2 # Bowel Movements 2 - Labs CBC & Chem 7: 06/18/23 04:26 06/23/23 05:40 Labs: Abnormal Lab Results - Last 24 Hours (Table) 06/22/23 06/22/23 06/22/23 Range/Units 11:02 17:02 20:01 D-Dimer (<0.60) mg/L FEU Sodium (137-145) mmol/L Creatinine (0.52-1.04) mg/dL Glucose (74-99) mg/dL POC Glucose (mg/dL) 275 H 296 H 329 H (70-110) mg/dL 06/23/23 06/23/23 06/23/23 Range/Units 05:40 05:40 06:10 D-Dimer 3.12 H (<0.60) mg/L FEU Sodium 134 L (137-145) mmol/L Creatinine 0.45 L (0.52-1.04) mg/dL Glucose 309 H (74-99) mg/dL POC Glucose (mg/dL) 327 H (70-110) mg/dL
[2023-06-23 12:03] LABS: Basophils # (A) 0.1 k/uL (0-0.2); Basophils % (A) 1 %; Eosinophils # (A) 0.5 k/uL (0-0.7); Eosinophils % (A) 6 %; HGB 12.9 gm/dL (11.4-16.0); Lymphocytes # (A) 1.6 k/uL (1.0-4.8); Lymphocytes % (A) 18 %; MCH 29.3 pg (25.0-35.0); MCV 88.8 fL (80.0-100.0); Mean Platelet Volume 7.4; Monocytes # (A) 0.6 k/uL (0-1.0); Monocytes % (A) 7 %; Neutrophils # (A) 5.9 k/uL (1.3-7.7); Neutrophils % (A) 67 %; Platelet Count 465 k/uL (150-450); RDW 13.6 % (11.5-15.5); WBC 8.7 k/uL (3.8-10.6)
[2023-06-23 12:15] LABS: INR 0.9 (<1.2); Prothrombin Time 9.6 sec (10.0-12.5)
[2023-06-23 12:20] LABS: Partial Thromboplastin Time 21.2 sec (22.0-30.0)
[2023-06-23] MEDS: ONDANSETRON 4 MG/2 ML VIAL IVP SCH ×2 (12:28→17:31)
--- NOTE | 2023-06-23 13:34 | P.PN ---
Subjective Progress Note Date: 06/23/23 Progress note Date of service 06/23/[address] Siegel. Patient seen and evaluated. [id number]. I received perfect Cerva this morning because of left arm has been more swollen, order for a stat left upper extremities ultrasound ordered and also advised to be notify the surgeon and the critical care pulmonary Dr. Pena. The interval finding found to have left arm positive for DVT of the left axillary and positive SVT basilic and cephalic with this obstruction over the drainage on the venous side the surgeon did consult vascular surgery her the nursing staff meanwhile I did discuss it with Dr. Pena and who did see the patient. Somes thoughts came from the surgical team to keep the PICC line and start heparin however with the swelling and this finding and will not be opening the vessels and the gradual more swelling will be okay and some surgical intervention may be to be done Patient already had gradual recovery from ileus post operative of exploratory laparotomy with the significant adhesion. The surgical team discontinue the TPN for the irritation through that route of the PICC line. Patient with visit resistant hypertension and she was on IV antihypertensive medication and on the cold lost night from the hospital requesting to change to oral medication with the patient able to swallow ankle able to keep medicine and she had 2 times bowel movement with the start of the ileus resolution, I did order the medication to be switched to oral for the purpose of controlling the hypertension as well no seizure has been found during hospitalization and may be also to be changed to his neuro medicine to oral if it's okay with the neurology if he is rounding. I was called again after Dr. Pena saw the patient and he recommended and ordered novel anticoagulation with an requests as well as pullout the PICC line to avoid continue propagation of the blood clotting which I did agree with his order. Also surgical team it seems to me the order vascular surgeon to see the patient but I don't have any response at this time. Patient blood sugar this morning 309 and [id number] CBG 290, d-dimer 3.12 with the normal range less than 0.60. Ultrasound of the left upper arm as noted in the earlier on the note Temperature 98.1 F oral, pulse 68 bpm regular sinus, respiratory rate 18/m nonlabored. Oxygen saturation 94% on room air, blood pressure 192/72 still high and continued with the current home medication will be monitored through the day. Patient is conscious alert oriented time 3 and head was normocephalic and atraumatic pupil was equal reactive conjunctiva was pink sclera was nonicteric. Neck was supple no JVD no thyromegaly no lymphadenopathy next extremities she has no edema on the lower extremities however she has edema on the left upper arm with the obstruction from the DVT no erythema around the PICC line which probably will be removed today. The next is right upper extremities normal no edema next chest is clear no wheezes no rhonchi's next heart PMI in the fifth intercostal space outside midclavicular line with the cardiomegaly and hypertension with hypertensive heart disease. Abdomen still distended however she had a BM's and bowel movement and minimal nausea but no vomiting. With the Current assessment: #1 left arm DVT left exemplary, positive also SVT basilic and cephalic vein. By the ultrasound. #2 small bowel obstruction secondary to adhesion #3 subsequent exploratory laparotomy and post surgical ileus #4 start of resolution with the NG tube has been removed yesterday and she had bowel movement and liquid diet. #5 diabetes mellitus with hyperglycemia covered with insulin to scale #6 hypertension with hypertensive heart disease still not well-controlled and today her medication changed to oral started lost night. Plan: #1 as the patient may need prolonged treatment for the DVT of the left arm agree with the Dr. Pena approach and removal of the PICC line from the left arm. #2 continue oral medication #3 monitor the improvement of the postoperative ileus. #4 probably superficial IV line may be an approach. Objective - Vital Signs Vital signs: Vital Signs Temp 98.1 F 06/23/23 07:33 Pulse 68 06/23/23 07:33 Resp 18 06/23/23 07:33 BP 192/72 06/23/23 07:33 Pulse Ox 94 L 06/23/23 07:33 FiO2 Intake & Output 06/22/23 06/23/23 06/23/23 18:59 06:59 18:59 Output Total 2700 1000 Balance -2700 -1000 Output: Urine 2700 1000 Other: Voiding Method External Catheter External Catheter External Catheter # Voids 2 # Bowel Movements 2 - Labs CBC & Chem 7: 06/23/23 11:35 06/23/23 05:40 Labs: Abnormal Lab Results - Last 24 Hours (Table) 06/22/23 06/22/23 06/23/23 Range/Units 17:02 20:01 05:40 Plt Count (150-450) k/uL PT (10.0-12.5) sec APTT (22.0-30.0) sec D-Dimer 3.12 H (<0.60) mg/L FEU Sodium (137-145) mmol/L Creatinine (0.52-1.04) mg/dL Glucose (74-99) mg/dL POC Glucose (mg/dL) 296 H 329 H (70-110) mg/dL 06/23/23 06/23/23 06/23/23 Range/Units 05:40 06:10 11:30 Plt Count (150-450) k/uL PT (10.0-12.5) sec APTT (22.0-30.0) sec D-Dimer (<0.60) mg/L FEU Sodium 134 L (137-145) mmol/L Creatinine 0.45 L (0.52-1.04) mg/dL Glucose 309 H (74-99) mg/dL POC Glucose (mg/dL) 327 H 290 H (70-110) mg/dL 06/23/23 06/23/23 Range/Units 11:35 11:35 Plt Count 465 H (150-450) k/uL PT 9.6 L (10.0-12.5) sec APTT 21.2 L (22.0-30.0) sec D-Dimer (<0.60) mg/L FEU Sodium (137-145) mmol/L Creatinine (0.52-1.04) mg/dL Glucose (74-99) mg/dL POC Glucose (mg/dL) (70-110) mg/dL
--- NOTE | 2023-06-23 14:03 | P.PN ---
Subjective Progress Note Date: 06/23/23 This is a 68-year-old female seen today in the intensive care unit, room 257. The patient apparently was admitted to the hospital back on June 10 or abdominal pain. The patient was found have a small bowel obstruction. Today's postop day #1, status post exploratory laparotomy, extensive lysis of adhesions, and partial omentectomy. The surgery was done by Dr. Levi. Currently, the patient seemed be doing relatively well. She is on 3 L of oxygen. She's getting saline at 75 mL an hour. An NG tube in. A pain pump is available for her, in terms of pain control. We encourage her to do the incentive spirometry, every hour, and I notice, there is not one at the bedside, so I asked the nurse to order one. Laboratory data today includes a glucose of 142. From yesterday, white count was 7.7, hemoglobin 12.7, and platelet count was normal. Sodium 143, potassium 4.5, chlorides 109, CO2 19, anion gap 15, BUN 7, creatinine 0.59. Magnesium was 1.5. No recent chest x-ray. The patient is currently on Flagyl. Progress note dated 06/17/2023. 68-year-old female seen in consultation yesterday. She seen in room 257, intensive care unit. The patient is postoperative day #2, status post exploratory laparotomy, extensive lysis of adhesions, and partial omentectomy. The patient is currently on oxygen, at 2 L. An NG tube remains in place. She's getting saline at 75 mL an hour. She's doing reasonably well on her incentive spirometer. She is having an apparent reaction to chlorhexidine. I recommend some Benadryl. White count of 7.8, hemoglobin 11, hematocrit 33.6, and a normal platelet count. Sodium 142, potassium 3.8, chlorides 109, CO2 17, anion gap 16, BUN 6, and creatinine 0.46. Calcium is 8.1 with magnesium of 1.4. Progress note dated 06/18/2023. 68-year-old female seen in consultation 2 days ago. The patient still is in the intensive care unit, room 257. The patient has an NG tube in place, and is on room air. She is receiving saline at 75 mL an hour. Labs include a white count of 7, hemoglobin 11.4, hematocrit 34.4, and platelet count of 287,000. Sodium 140, potassium 3.2, chlorides 106, CO2 23, BUN 3, creatinine 0.43. Glucose 148. Calcium is 8. The patient does complain of abdominal tenderness. Progress note dated 06/19/2023. 68-year-old female seen in consultation 3 days ago. She seen today again in room 257. Patient still has the NG tube still in place. She's receiving saline at 75 mL an hour, and TPN at 30 mL an hour. The epidural pain catheter, has been removed. Sodium 137, potassium 3.2, chlorides 103, CO2 27, BUN 3, creatinine 0.42. Magnesium is 1.4. Phosphorus is 2.0. Chest x-ray from yesterday, shows no evidence of pleural effusion, pneumothorax, or focal consolidation. Progress note dated 06/20/2023. 68-year-old female seen in room 257. The NG tube has been removed. The patient's on room air. She is receiving saline at 75 mL an hour. She's getting TPN at 83 mL an hour. According to the nurse, she had an uneventful night. Labs today include a sodium 136, potassium 3.6, chlorides 102, CO2 26, BUN 4, creatinine 0.4. Glucose 288. Magnesium 1.5 phosphorus 2.2 and calcium 8.0. No chest x-ray today. The patient is seen today 06/21/2023 in follow-up on the regular medical floor. She is awake and alert in no acute distress. Resting comfortably in bed. Maintaining good O2 saturations in the 90s on room air. Continues to work with the incentive spirometer. Normal saline at 75 once per hour. She is being nourished with TPN at 85 ML's per hour. Sodium 136. Potassium 4.0. Bicarb 26. BUN 13. Creatinine 0.40. Glucose 321. AST 30. ALT 35. Albumin 2.7. She is continued on heparin for DVT prophylaxis. Abdominal x-ray revealed bowel gas pattern likely reflective of ileus. No gross free air detected. NG tube was removed on 06/19/2023. The patient is seen today 06/22/2023 in follow-up on the regular medical floor. She is resting quite comfortably in bed. Awake and alert in no acute distress. She is maintaining good O2 saturations in the 90s on room air. She remains on TPN at 85 ML's per hour. Normal saline at 75 ML's per hour. She is thirsty. She is still on ice chips only. Sodium 136. Potassium 4.0. Bicarb 23. BUN 9. Creatinine 0.44. Magnesium 1.5. Glucose 253. Heparin for DVT prophylaxis. on 06/23/2023, the patient is being seen for a follow-up. The patient is on TPN for nutritional support. The patient was noted to have increased swelling in the left upper extremity and the patient was given an ultrasound of the left upper extremity and the patient was found to have a positive DVT in the left axillary and basilic and cephalic veins. Note that the patient has a PICC line in left upper extremity. The arm is quite swollen. The patient is sitting TPN for nutritional support of the PICC line. At the same time, the patient undergone a previous breast surgery and lymph node dissection on the right and the patient is unable to have IV access in the right upper extremity. The patient is afebrile. The patient is hemodynamically stable. Pulse ox on room air is 94%. She is alert and oriented 3. She is gradually increasing her oral intake. She had a bowel movement yesterday, none today. No nausea. No emesis in no fever. No other new complaints. The abdominal wound is dry clean and intact. No abdominal distention. No altered mentation. No shortness of breath or pleurisy or hemoptysis. The lab work from today shows a white cell count of 8.7, hemoglobin was 12.5 and a platelet count of 465 and the sodium level is at 136, potassium of 4.3, BUN is at 30 with a creatinine of 0.4 and a glucose of 309. Objective - Vital Signs Vital signs: Vital Signs Temp 98.1 F 06/23/23 07:33 Pulse 68 06/23/23 07:33 Resp 18 06/23/23 07:33 BP 192/72 06/23/23 07:33 Pulse Ox 94 L 06/23/23 07:33 FiO2 Intake & Output 06/22/23 06/23/23 06/23/23 18:59 06:59 18:59 Output Total 2700 1000 Balance -2700 -1000 Output: Urine 2700 1000 Other: Voiding Method External Catheter External Catheter External Catheter # Voids 2 # Bowel Movements 2 - Exam GENERAL EXAM: Alert, pleasant 68-year-old female, on room air, resting in bed, comfortable in no apparent distress. HEAD: Normocephalic. EYES: Normal reaction of pupils, equal size. NOSE: Clear with pink turbinates. THROAT: No erythema or exudates. NECK: No masses, no JVD. CHEST: No chest wall deformity. LUNGS: Equal air entry with no crackles, wheeze, rhonchi or dullness. CVS: S1 and S2 normal with no audible murmur, regular rhythm. ABDOMEN: Mild tenderness at incision site. Dressing dry and intact. Mild distention. SPINE: No scoliosis or deformity SKIN: No rashes CENTRAL NERVOUS SYSTEM: No focal deficits, tone is normal in all 4 extremities. EXTREMITIES: There is no peripheral edema. No clubbing, no cyanosis. Peripheral pulses are intact.the left upper extremity is more swollen compared to right and the patient is a PICC line in left upper extremity. - Labs CBC & Chem 7: 06/23/23 11:35 06/23/23 05:40 Labs: Abnormal Lab Results - Last 24 Hours (Table) 06/22/23 06/22/23 06/23/23 Range/Units 17:02 20:01 05:40 D-Dimer 3.12 H (<0.60) mg/L FEU Sodium (137-145) mmol/L Creatinine (0.52-1.04) mg/dL Glucose (74-99) mg/dL POC Glucose (mg/dL) 296 H 329 H (70-110) mg/dL 06/23/23 06/23/23 06/23/23 Range/Units 05:40 06:10 11:30 D-Dimer (<0.60) mg/L FEU Sodium 134 L (137-145) mmol/L Creatinine 0.45 L (0.52-1.04) mg/dL Glucose 309 H (74-99) mg/dL POC Glucose (mg/dL) 327 H 290 H (70-110) mg/dL Assessment and Plan Plan: Small bowel obstruction secondary to intra-abdominal adhesions. Status post exploratory laparotomy with extensive lysis of adhesions and partial omentectomy. Post operative day #8. The patient gradually increasing her diet as tolerated. Postoperative hypertension, treated with pain pump, clonidine patch, hydralazine. Improved TPN for nutritional support via PICC line in left upper extremity. Left upper extremity DVT involving the axillary and basilic and cephalic veins confirmed by ultrasound Dopplers. no signs of any respiratory distress History of CVA History of diabetes mellitus History of esophageal reflux disease Hyperlipidemia Hypertension Osteoarthritis History of breast cancer History of uterine cancer Plan: wean the patient off the TPN and discontinue by evening and to sit with a remote the PICC line Gradually increase oral intake as tolerated Should be able to insert a peripheral line at the later stage for this patient for IV access We'll give a short course of anticoagulation with Eliquis post removal of the PICC line Increase her activity as tolerated Stable and on room air
[2023-06-23] MEDS: HYDROmorphone 1 MG/ML 1 ML SYRINGE IVP PRN (14:26)
[2023-06-23] MEDS: SIMETHICONE 40 MG/0.6 ML DROPS 2,000 MG/30 ML BOTTLE PO SCH ×3 (14:33→23:26)
[2023-06-23 16:17] LABS: Glucose,Whole Blood 239 mg/dL (70-110)
[2023-06-23] MEDS: ONDANSETRON 4 MG TAB PO SCH ×2 (17:48→23:32)
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
[2023-06-23] MEDS ORDERED: HEPARIN SODIUM,PORCINE 5,000 UNIT/ML 1 ML VIAL SQ STA (20:33)
[2023-06-23] MEDS ORDERED: ONDANSETRON 4 MG/2 ML VIAL IVP PRN (20:34)
--- NOTE | 2023-06-23 20:34 | XR ---
EXAMINATION TYPE: XR abdomen 1V DATE OF EXAM: 06/23/2023 8:07 PM CLINICAL INDICATION:Female, 68 years old with history of Bowel Obstruction; [facility] COMPARISON: 06/20/2023. TECHNIQUE: One radiographic view of the abdomen was obtained. FINDINGS: Gaseous dilation of multiple loops of bowel. Postsurgical changes in the mid abdomen with s urgical clips. Oral contrast does extend to the rectum. Multilevel degeneration changes of the spine. Severe degeneration changes of the hips. IMPRESSION: Gaseous dilation of bowel findings suggestive of ileus given oral contrast extending to the rectum.
[2023-06-23 20:47] LABS: Glucose,Whole Blood 195 mg/dL (70-110)
[2023-06-24] MEDS: 1: MVI, ADULT NO.4 WITH VIT K 10 ML, TRACE (CONC-1ML/DOSE) 1 ML, SODIUM CHLORIDE 4MEQ/ML IV SCH ×6 (05:46)
[2023-06-24] MEDS: METOCLOPRAMIDE 5 MG/ML 2 ML VIAL IVP SCH ×3 (05:47→17:17)
[2023-06-24 06:12] LABS: African American GFR (CKD) >90 (>60 ml/min/1.73 sqM); Anion Gap 11 mmol/L; Blood Urea Nitrogen 15 mg/dL (7-17); Calcium 9.1 mg/dL (8.4-10.2); Carbon Dioxide 27 mmol/L (22-30); Chloride 98 mmol/L (98-107); Glucose 249 mg/dL (74-99); Magnesium 1.7 mg/dL (1.6-2.3); Non-African American GFR(CKD) >90 (>60 ml/min/1.73 sqM); Phosphorus 4.4 mg/dL (2.5-4.5); Potassium 4.6 mmol/L (3.5-5.1); Sodium 136 mmol/L (137-145)
[2023-06-24 06:20] LABS: Glucose,Whole Blood 240 mg/dL (70-110)
[2023-06-24] MEDS: INSULIN REGULAR 100 UNIT/ML VIAL (IV) SQ SCH ×3 (06:22→17:17)
[2023-06-24 09:36] LABS: Basophils # (A) 0.06 X 10*3/uL (0.00-0.10); Basophils % (A) 0.5 %; Eosinophils # (A) 0.49 X 10*3/uL (0.04-0.35); Eosinophils % (A) 4.5 %; HCT 40.1 % (37.2-46.3); HGB 12.9 g/dL (12.0-15.0); Lymphocytes # (A) 1.89 X 10*3/uL (0.90-5.00); Lymphocytes % (A) 17.2 %; MCH 28.7 pg (27.0-32.0); MCHC 32.2 g/dL (32.0-37.0); MCV 89.3 FL (80.0-97.0); Mean Platelet Volume 9.5 FL (9.5-12.2); Monocytes % (A) 11.8 %; NRBC Per 100 WBC 0 X 10*3/uL (0.00-0.01); Neutrophils # (A) 6.98 X 10*3/uL (1.80-7.70); Neutrophils % (A) 63.6 %; Platelet Count 540 X 10*3/uL (140-440); RBC 4.49 X 10*6/uL (4.10-5.20); RDW 13.7 % (11.5-14.5); WBC 10.98 X 10*3/uL (4.50-10.00)
[2023-06-24] MEDS: HEPARIN SODIUM,PORCINE 5,000 UNIT/ML 1 ML VIAL SQ SCH ×2 (10:58→12:41)
[2023-06-24] MEDS: hydrALAZINE HCL 50 MG TAB PO SCH ×3 (10:58→22:43)
[2023-06-24] MEDS: carBAMazepine 300 MG CPMP.12HR PO SCH ×2 (10:58→22:43)
[2023-06-24] MEDS: cloNIDine HCL 0.2 MG TAB PO SCH ×3 (10:58→22:43)
[2023-06-24] MEDS: SIMETHICONE 40 MG/0.6 ML DROPS 2,000 MG/30 ML BOTTLE PO SCH ×4 (10:58→22:44)
[2023-06-24] MEDS: ONDANSETRON 4 MG TAB PO SCH ×2 (10:58→13:14)
[2023-06-24] MEDS: METOPROLOL TARTRATE 50 MG TAB PO SCH ×3 (10:59→22:43)
[2023-06-24] MEDS: lisinopriL 20 MG TAB PO SCH ×2 (10:59→22:43)
[2023-06-24] MEDS: PANTOPRAZOLE 40 MG/10 ML VIAL IVP SCH ×2 (10:59→22:43)
[2023-06-24] MEDS: levETIRAcetam 500 MG TAB PO SCH ×2 (10:59→22:43)
[2023-06-24 11:18] LABS: Glucose,Whole Blood 296 mg/dL (70-110)
--- NOTE | 2023-06-24 11:43 | P.PN ---
Subjective Progress Note Date: 06/24/23 This is a 68-year-old female seen today in the intensive care unit, room 257. The patient apparently was admitted to the hospital back on June 10 or abdominal pain. The patient was found have a small bowel obstruction. Today's postop day #1, status post exploratory laparotomy, extensive lysis of adhesions, and partial omentectomy. The surgery was done by Dr. Levi. Currently, the patient seemed be doing relatively well. She is on 3 L of oxygen. She's getting saline at 75 mL an hour. An NG tube in. A pain pump is available for her, in terms of pain control. We encourage her to do the incentive spirometry, every hour, and I notice, there is not one at the bedside, so I asked the nurse to order one. Laboratory data today includes a glucose of 142. From yesterday, white count was 7.7, hemoglobin 12.7, and platelet count was normal. Sodium 143, potassium 4.5, chlorides 109, CO2 19, anion gap 15, BUN 7, creatinine 0.59. Magnesium was 1.5. No recent chest x-ray. The patient is currently on Flagyl. Progress note dated 06/17/2023. 68-year-old female seen in consultation yesterday. She seen in room 257, intensive care unit. The patient is postoperative day #2, status post exploratory laparotomy, extensive lysis of adhesions, and partial omentectomy. The patient is currently on oxygen, at 2 L. An NG tube remains in place. She's getting saline at 75 mL an hour. She's doing reasonably well on her incentive spirometer. She is having an apparent reaction to chlorhexidine. I recommend some Benadryl. White count of 7.8, hemoglobin 11, hematocrit 33.6, and a normal platelet count. Sodium 142, potassium 3.8, chlorides 109, CO2 17, anion gap 16, BUN 6, and creatinine 0.46. Calcium is 8.1 with magnesium of 1.4. Progress note dated 06/18/2023. 68-year-old female seen in consultation 2 days ago. The patient still is in the intensive care unit, room 257. The patient has an NG tube in place, and is on room air. She is receiving saline at 75 mL an hour. Labs include a white count of 7, hemoglobin 11.4, hematocrit 34.4, and platelet count of 287,000. Sodium 140, potassium 3.2, chlorides 106, CO2 23, BUN 3, creatinine 0.43. Glucose 148. Calcium is 8. The patient does complain of abdominal tenderness. Progress note dated 06/19/2023. 68-year-old female seen in consultation 3 days ago. She seen today again in room 257. Patient still has the NG tube still in place. She's receiving saline at 75 mL an hour, and TPN at 30 mL an hour. The epidural pain catheter, has been removed. Sodium 137, potassium 3.2, chlorides 103, CO2 27, BUN 3, creatinine 0.42. Magnesium is 1.4. Phosphorus is 2.0. Chest x-ray from yesterday, shows no evidence of pleural effusion, pneumothorax, or focal consolidation. Progress note dated 06/20/2023. 68-year-old female seen in room 257. The NG tube has been removed. The patient's on room air. She is receiving saline at 75 mL an hour. She's getting TPN at 83 mL an hour. According to the nurse, she had an uneventful night. Labs today include a sodium 136, potassium 3.6, chlorides 102, CO2 26, BUN 4, creatinine 0.4. Glucose 288. Magnesium 1.5 phosphorus 2.2 and calcium 8.0. No chest x-ray today. The patient is seen today 06/21/2023 in follow-up on the regular medical floor. She is awake and alert in no acute distress. Resting comfortably in bed. Maintaining good O2 saturations in the 90s on room air. Continues to work with the incentive spirometer. Normal saline at 75 once per hour. She is being nourished with TPN at 85 ML's per hour. Sodium 136. Potassium 4.0. Bicarb 26. BUN 13. Creatinine 0.40. Glucose 321. AST 30. ALT 35. Albumin 2.7. She is continued on heparin for DVT prophylaxis. Abdominal x-ray revealed bowel gas pattern likely reflective of ileus. No gross free air detected. NG tube was removed on 06/19/2023. The patient is seen today 06/22/2023 in follow-up on the regular medical floor. She is resting quite comfortably in bed. Awake and alert in no acute distress. She is maintaining good O2 saturations in the 90s on room air. She remains on TPN at 85 ML's per hour. Normal saline at 75 ML's per hour. She is thirsty. She is still on ice chips only. Sodium 136. Potassium 4.0. Bicarb 23. BUN 9. Creatinine 0.44. Magnesium 1.5. Glucose 253. Heparin for DVT prophylaxis. on 06/23/2023, the patient is being seen for a follow-up. The patient is on TPN for nutritional support. The patient was noted to have increased swelling in the left upper extremity and the patient was given an ultrasound of the left upper extremity and the patient was found to have a positive DVT in the left axillary and basilic and cephalic veins. Note that the patient has a PICC line in left upper extremity. The arm is quite swollen. The patient is sitting TPN for nutritional support of the PICC line. At the same time, the patient undergone a previous breast surgery and lymph node dissection on the right and the patient is unable to have IV access in the right upper extremity. The patient is afebrile. The patient is hemodynamically stable. Pulse ox on room air is 94%. She is alert and oriented 3. She is gradually increasing her oral intake. She had a bowel movement yesterday, none today. No nausea. No emesis in no fever. No other new complaints. The abdominal wound is dry clean and intact. No abdominal distention. No altered mentation. No shortness of breath or pleurisy or hemoptysis. The lab work from today shows a white cell count of 8.7, hemoglobin was 12.5 and a platelet count of 465 and the sodium level is at 136, potassium of 4.3, BUN is at 30 with a creatinine of 0.4 and a glucose of 309. On 06/24/2023, the patient is still having some nausea and she was placed in to bowel rest. The PICC line was removed from the left upper extremity and the TPN is discontinued. She does have some residual swelling in the left upper extremity. No abdominal pain. No abdominal distention. She has positive bowel sounds. The recent echo that time 0.9 with a hemoglobin 12.9 and a platelet count of 540. Urine is a 50 with a creatinine of 0.8 and a sodium level is at 136. Triglyceride level was 422. She does have a DVT of the left upper extremity. She'll get a midline Objective - Vital Signs Vital signs: Vital Signs Temp 98.1 F 06/24/23 07:20 Pulse 86 06/24/23 07:20 Resp 17 06/24/23 07:20 BP 163/66 06/24/23 07:20 Pulse Ox 95 06/24/23 07:20 FiO2 Intake & Output 06/23/23 06/24/23 06/24/23 18:59 06:59 18:59 Output Total 500 250 Balance -500 -250 Weight 86.9 kg Output: Urine 500 250 Other: Voiding Method External Catheter External Catheter # Voids 6 - Exam GENERAL EXAM: Alert, pleasant 68-year-old female, on room air, resting in bed, comfortable in no apparent distress. HEAD: Normocephalic. EYES: Normal reaction of pupils, equal size. NOSE: Clear with pink turbinates. THROAT: No erythema or exudates. NECK: No masses, no JVD. CHEST: No chest wall deformity. LUNGS: Equal air entry with no crackles, wheeze, rhonchi or dullness. CVS: S1 and S2 normal with no audible murmur, regular rhythm. ABDOMEN: Mild tenderness at incision site. Dressing dry and intact. Mild distention. SPINE: No scoliosis or deformity SKIN: No rashes CENTRAL NERVOUS SYSTEM: No focal deficits, tone is normal in all 4 extremities. EXTREMITIES: There is no peripheral edema. No clubbing, no cyanosis. Peripheral pulses are intact.the left upper extremity is more swollen compared to right and the PICC line has been removed - Labs CBC & Chem 7: 06/24/23 05:11 06/24/23 05:11 Labs: Abnormal Lab Results - Last 24 Hours (Table) 06/23/23 06/23/23 06/23/23 Range/Units 11:30 11:35 11:35 WBC (4.50-10.00) X 10*3/uL Plt Count 465 H (150-450) k/uL Monocytes # (0.20-1.00) X 10*3/uL Eosinophils # (0.04-0.35) X 10*3/uL PT 9.6 L (10.0-12.5) sec APTT 21.2 L (22.0-30.0) sec Sodium (137-145) mmol/L Glucose (74-99) mg/dL POC Glucose (mg/dL) 290 H (70-110) mg/dL Triglycerides (0.00-149.00) mg/dL 06/23/23 06/23/23 06/23/23 Range/Units 16:16 16:52 20:43 WBC (4.50-10.00) X 10*3/uL Plt Count (150-450) k/uL Monocytes # (0.20-1.00) X 10*3/uL Eosinophils # (0.04-0.35) X 10*3/uL PT (10.0-12.5) sec APTT 21.0 L (22.0-30.0) sec Sodium (137-145) mmol/L Glucose (74-99) mg/dL POC Glucose (mg/dL) 239 H 195 H (70-110) mg/dL Triglycerides (0.00-149.00) mg/dL 06/24/23 06/24/23 06/24/23 Range/Units 05:11 05:11 05:11 WBC 10.98 H (4.50-10.00) X 10*3/uL Plt Count 540 H (150-450) k/uL Monocytes # 1.30 H (0.20-1.00) X 10*3/uL Eosinophils # 0.49 H (0.04-0.35) X 10*3/uL PT (10.0-12.5) sec APTT (22.0-30.0) sec Sodium 136 L (137-145) mmol/L Glucose 249 H (74-99) mg/dL POC Glucose (mg/dL) (70-110) mg/dL Triglycerides 422.00 H (0.00-149.00) mg/dL 06/24/23 Range/Units 06:18 WBC (4.50-10.00) X 10*3/uL Plt Count (150-450) k/uL Monocytes # (0.20-1.00) X 10*3/uL Eosinophils # (0.04-0.35) X 10*3/uL PT (10.0-12.5) sec APTT (22.0-30.0) sec Sodium (137-145) mmol/L Glucose (74-99) mg/dL POC Glucose (mg/dL) 240 H (70-110) mg/dL Triglycerides (0.00-149.00) mg/dL Assessment and Plan Plan: Small bowel obstruction secondary to intra-abdominal adhesions. Status post exploratory laparotomy with extensive lysis of adhesions and partial omentectomy. Post operative day # 9. The patient is still having difficulties in tolerating her diet and nausea. The patient will be placed on bowel rest for next 24 hours Postoperative hypertension, treated with pain pump, clonidine patch, hydralazine. Improved TPN for nutritional support via PICC line in left upper extremity. PICC line was removed and the patient will be given a midline Left upper extremity DVT involving the axillary and basilic and cephalic veins confirmed by ultrasound Dopplers. no signs of any respiratory distress History of CVA History of diabetes mellitus History of esophageal reflux disease Hyperlipidemia Hypertension Osteoarthritis History of breast cancer History of uterine cancer Plan: TPN discontinued PICC line removed We'll get a midline Bowel rest for the next 24 hours Gradually increase oral intake as tolerated Stable and on room air
--- NOTE | 2023-06-24 12:56 | P.PN ---
Subjective Progress Note Date: 06/24/23 CHIEF COMPLAINT: SBO HISTORY OF PRESENT ILLNESS: Patient is postop day #9 status post exploratory laparotomy with extensive lysis of adhesions and partial omentectomy. Patient had vomiting during the night. She was made nothing by mouth. Abdominal x-ray had shown ileus. Patient reports that she is now having flatus. She had refused the NG tube. Afebrile. WBC 10.98 Hgb 12.9 platelets 540 sodium 136 potassium is 4.6 creatinine 0.58 glucose 296 magnesium 1.7. Patient has been weaned off the TPN and picc line removed. PHYSICAL EXAM: VITAL SIGNS: Reviewed. GENERAL: Well-developed in no acute distress. ABDOMEN: Soft. Mildly distended. minimal tenderness at incision site. Incisional dressing clean dry and intact. NEUROLOGIC: Alert and oriented. Cranial nerves II through XII grossly intact. ASSESSMENT: 1. Small bowel obstruction secondary to intra-abdominal adhesions. Status post exploratory laparotomy with extensive lysis of adhesions and partial omentectomy 2. Postoperative ileus 3. New DVT left arm PLAN: -Keep patient nothing by mouth except for ice chips and popsicles -Bowl rest for the next 24 hours -Okay for oral medications -Midline ordered for IV access -Continue anti-emetics -Continue pain management -Encouraged patient to ambulate -Encouraged patient to use incentive spirometer -Okay for anticoagulation from surgical standpoint for DVT -DVT prophylaxis subcu heparin Physician Programmer Or Analyst note has been reviewed by physician. Signing provider agrees with the documented findings, assessment, and plan of care. Objective - Vital Signs Vital signs: Vital Signs Temp 98.1 F 06/24/23 07:20 Pulse 86 06/24/23 07:20 Resp 17 06/24/23 07:20 BP 163/66 06/24/23 07:20 Pulse Ox 95 06/24/23 07:20 FiO2 Intake & Output 06/23/23 06/24/23 06/24/23 18:59 06:59 18:59 Output Total 500 250 Balance -500 -250 Weight 86.9 kg Output: Urine 500 250 Other: Voiding Method External Catheter External Catheter # Voids 6 - Labs CBC & Chem 7: 06/24/23 05:11 06/24/23 05:11 Labs: Abnormal Lab Results - Last 24 Hours (Table) 06/23/23 06/23/23 06/23/23 Range/Units 11:30 11:35 11:35 Plt Count 465 H (150-450) k/uL PT 9.6 L (10.0-12.5) sec APTT 21.2 L (22.0-30.0) sec Sodium (137-145) mmol/L Glucose (74-99) mg/dL POC Glucose (mg/dL) 290 H (70-110) mg/dL 06/23/23 06/23/23 06/23/23 Range/Units 16:16 16:52 20:43 Plt Count (150-450) k/uL PT (10.0-12.5) sec APTT 21.0 L (22.0-30.0) sec Sodium (137-145) mmol/L Glucose (74-99) mg/dL POC Glucose (mg/dL) 239 H 195 H (70-110) mg/dL 06/24/23 06/24/23 Range/Units 05:11 06:18 Plt Count (150-450) k/uL PT (10.0-12.5) sec APTT (22.0-30.0) sec Sodium 136 L (137-145) mmol/L Glucose 249 H (74-99) mg/dL POC Glucose (mg/dL) 240 H (70-110) mg/dL
[2023-06-24] MEDS: SODIUM CHLORIDE 0.9% 1,000 ML IV SCH ×2 (13:03→14:55)
--- NOTE | 2023-06-24 14:51 | P.PN ---
Subjective Progress Note Date: 06/24/23 Progress note Date of service 06/24/[address] Wood. Patient seen [id number] evaluated and discussed with her RN. Patient has history of DVT of the left upper extremities in association with the PICC line and she had left axillary deep venous thrombosis as well as superficial vein in the basilic and cephalic. Subsequently the PICC line has been removed. So far unable to obtain another peripheral line in the 1 was placed on the right arm was not usable. Patient had also episodes of severe nausea and vomiting in association with using anything orally and in tolerated to any food currently the put her nothing by mouth. Patient also had history of bilateral mastectomy and the left arm has been used and advice that can use the right arm because of the DVT on the left Patient unable to to tolerate oral medication, and she has been on medication for seizure disorder, resistant hypertension, and TPN which was discontinued. Patient still had ileus postoperative and she had history of bowel obstruction with small bowel underwent exploratory laparotomy and severe adhesion has been visible still have a problem with bowel movement. Passing gas and nausea and vomiting but no BM's. Patient started on subcu heparin every 12 hours with attention to the recent surgery until we have peripheral line and can be started on heparin protocol versus novel anticoagulation as elliquis which she will be decided by Dr. Pena the pulmonary and critical care and the nurse will contact Dr. Pena at that time. Today she is feeling a little better after MPO no farther peels as has been gagging probably is a high vagal stimulation and she could not tolerate anything orally. Physical exam: She conscious alert oriented 3 Neck was supple no JVD no thyromegaly no lymphadenopathy trachea midline Chest clear to auscultation percussion Heart regular sinus rhythm Abdomen she has positive bowel sounds in the lower abdomen is still have distention and an and discomfort with percussion with the still having post operative ileus Extremities she had a thrombotic stocking and no edema. Neurologically no seizure disorder. No lateralizing sign. Assessment: Vital signs stable with the resistant hypertension #1 intolerance of oral intake or use the medication pills. #2 discussed with her nurse Maritza OROPEZA once the able to obtain line could be midline could be peripheral line and could be used also the right arm. #3 at that time if she had the line she can receive the Zofran IV push, MB received also antihypertensive medication as IV untold patient tolerated the oral. #4 patient with the left upper extremity DVT and the plan for heparin infusion once we have IV versus novel anticoagulant if patient able to take oral medication and that will be addressed by Dr. Pena. #5 with the resistant hypertension and may use the IV or IM medication if patient could not be tolerated the by mouth medication New plan: Waiting for the placement of peripheral line or midline and subsequently adding the treatment as mentioned above Waiting for the bowel ileus to be a result. Objective - Vital Signs Vital signs: Vital Signs Temp 98.1 F 06/24/23 07:20 Pulse 86 06/24/23 07:20 Resp 17 06/24/23 07:20 BP 163/66 06/24/23 07:20 Pulse Ox 95 06/24/23 07:20 FiO2 Intake & Output 06/23/23 06/24/23 06/24/23 18:59 06:59 18:59 Output Total 500 250 Balance -500 -250 Weight 86.9 kg Output: Urine 500 250 Other: Voiding Method External Catheter External Catheter # Voids 6 - Labs CBC & Chem 7: 06/24/23 05:11 06/24/23 05:11 Labs: Abnormal Lab Results - Last 24 Hours (Table) 06/23/23 06/23/23 06/23/23 Range/Units 16:16 16:52 20:43 WBC (4.50-10.00) X 10*3/uL Plt Count (140-440) X 10*3/uL Monocytes # (0.20-1.00) X 10*3/uL Eosinophils # (0.04-0.35) X 10*3/uL APTT 21.0 L (22.0-30.0) sec Sodium (137-145) mmol/L Glucose (74-99) mg/dL POC Glucose (mg/dL) 239 H 195 H (70-110) mg/dL Triglycerides (0.00-149.00) mg/dL 06/24/23 06/24/23 06/24/23 Range/Units 05:11 05:11 05:11 WBC 10.98 H (4.50-10.00) X 10*3/uL Plt Count 540 H (140-440) X 10*3/uL Monocytes # 1.30 H (0.20-1.00) X 10*3/uL Eosinophils # 0.49 H (0.04-0.35) X 10*3/uL APTT (22.0-30.0) sec Sodium 136 L (137-145) mmol/L Glucose 249 H (74-99) mg/dL POC Glucose (mg/dL) (70-110) mg/dL Triglycerides 422.00 H (0.00-149.00) mg/dL 06/24/23 06/24/23 Range/Units 06:18 11:17 WBC (4.50-10.00) X 10*3/uL Plt Count (140-440) X 10*3/uL Monocytes # (0.20-1.00) X 10*3/uL Eosinophils # (0.04-0.35) X 10*3/uL APTT (22.0-30.0) sec Sodium (137-145) mmol/L Glucose (74-99) mg/dL POC Glucose (mg/dL) 240 H 296 H (70-110) mg/dL Triglycerides (0.00-149.00) mg/dL
[2023-06-24 16:31] LABS: Glucose,Whole Blood 242 mg/dL (70-110)
[2023-06-24 20:54] LABS: Glucose,Whole Blood 207 mg/dL (70-110)
[2023-06-24] MEDS ORDERED: APIXABAN 5 MG TAB PO SCH (21:00)
[2023-06-24] MEDS: amLODIPine 10 MG TAB PO SCH (22:43)
[2023-06-24] MEDS: Apixaban Initiation Dose--VTE 5 MG TAB PO SCH (22:43)
[2023-06-25] MEDS: ONDANSETRON 4 MG TAB PO SCH ×4 (00:02→23:38)
[2023-06-25 06:20] LABS: Glucose,Whole Blood 215 mg/dL (70-110)
[2023-06-25] MEDS: INSULIN REGULAR 100 UNIT/ML VIAL (IV) SQ SCH ×3 (06:23→17:19)
[2023-06-25] MEDS: METOCLOPRAMIDE 5 MG/ML 2 ML VIAL IVP SCH ×5 (06:23→23:51)
[2023-06-25 06:53] LABS: African American GFR (CKD) >90 (>60 ml/min/1.73 sqM); Anion Gap 11 mmol/L; Blood Urea Nitrogen 16 mg/dL (7-17); Calcium 8.3 mg/dL (8.4-10.2); Carbon Dioxide 23 mmol/L (22-30); Chloride 104 mmol/L (98-107); Glucose 220 mg/dL (74-99); Non-African American GFR(CKD) >90 (>60 ml/min/1.73 sqM); Potassium 4.2 mmol/L (3.5-5.1); Sodium 138 mmol/L (137-145)
[2023-06-25] MEDS: PANTOPRAZOLE 40 MG/10 ML VIAL IVP SCH ×2 (08:35→20:39)
[2023-06-25] MEDS: levETIRAcetam 500 MG TAB PO SCH ×2 (08:37→20:39)
[2023-06-25] MEDS: carBAMazepine 300 MG CPMP.12HR PO SCH ×2 (08:37→20:39)
[2023-06-25] MEDS: cloNIDine HCL 0.2 MG TAB PO SCH ×3 (08:38→20:40)
[2023-06-25] MEDS: METOPROLOL TARTRATE 50 MG TAB PO SCH ×3 (08:38→20:40)
[2023-06-25] MEDS: Apixaban Initiation Dose--VTE 5 MG TAB PO SCH ×2 (08:38→21:35)
[2023-06-25] MEDS: hydrALAZINE HCL 50 MG TAB PO SCH ×3 (08:39→20:40)
[2023-06-25] MEDS: lisinopriL 20 MG TAB PO SCH ×2 (08:39→20:39)
[2023-06-25] MEDS: SIMETHICONE 40 MG/0.6 ML DROPS 2,000 MG/30 ML BOTTLE PO SCH ×4 (08:39→20:40)
[2023-06-25 11:28] LABS: Glucose,Whole Blood 326 mg/dL (70-110)
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
--- NOTE | 2023-06-25 13:59 | P.PN ---
Subjective Progress Note Date: 06/25/23 CHIEF COMPLAINT: SBO HISTORY OF PRESENT ILLNESS: Patient is postop day #10 status post exploratory laparotomy with extensive lysis of adhesions and partial omentectomy. Patient reports improvement in abdominal pain. She had 3 bowel movements she is having flatus. She denies any further nausea or vomiting. She has been tolerating popsicles. She did get a midline. PICC line in the left arm is removed. Afebrile. Patient on Eliquis for DVT Dr. Torres is covering for Dr. Levi PHYSICAL EXAM: VITAL SIGNS: Reviewed. GENERAL: Well-developed in no acute distress. ABDOMEN: Soft. Mildly distended. minimal tenderness at incision site. Incisional dressing clean dry and intact. NEUROLOGIC: Alert and oriented. Cranial nerves II through XII grossly intact. ASSESSMENT: 1. Small bowel obstruction secondary to intra-abdominal adhesions. Status post exploratory laparotomy with extensive lysis of adhesions and partial omentectomy 2. Postoperative ileus 3. New DVT left arm PLAN: -Advance diet to clear liquids -Encouraged patient to ambulate -Continue Reglan and Zofran -Continue Mylicon gas drops -Continue pain management Physician Oceanologist note has been reviewed by physician. Signing provider agrees with the documented findings, assessment, and plan of care. Objective - Vital Signs Vital signs: Vital Signs Temp 97.5 F L 06/25/23 13:31 Pulse 68 06/25/23 13:31 Resp 17 06/25/23 13:31 BP 131/66 06/25/23 13:31 Pulse Ox 93 L 06/25/23 13:31 FiO2 Intake & Output 06/24/23 06/25/23 06/25/23 18:59 06:59 18:59 Weight 86.9 kg Other: Voiding Method Toilet Bedside Commode Bedside Commode # Voids 4 3 # Bowel Movements 3 - Labs CBC & Chem 7: 06/24/23 05:11 06/25/23 05:59 Labs: Abnormal Lab Results - Last 24 Hours (Table) 06/24/23 06/24/23 06/25/23 Range/Units 16:30 20:53 05:59 Glucose 220 H (74-99) mg/dL POC Glucose (mg/dL) 242 H 207 H (70-110) mg/dL Calcium 8.3 L (8.4-10.2) mg/dL 06/25/23 06/25/23 Range/Units 06:18 11:26 Glucose (74-99) mg/dL POC Glucose (mg/dL) 215 H 326 H (70-110) mg/dL Calcium (8.4-10.2) mg/dL
--- NOTE | 2023-06-25 14:16 | P.PN ---
Subjective Progress Note Date: 06/25/23 This is a 68-year-old female seen today in the intensive care unit, room 257. The patient apparently was admitted to the hospital back on June 10 or abdominal pain. The patient was found have a small bowel obstruction. Today's postop day #1, status post exploratory laparotomy, extensive lysis of adhesions, and partial omentectomy. The surgery was done by Dr. Levi. Currently, the patient seemed be doing relatively well. She is on 3 L of oxygen. She's getting saline at 75 mL an hour. An NG tube in. A pain pump is available for her, in terms of pain control. We encourage her to do the incentive spirometry, every hour, and I notice, there is not one at the bedside, so I asked the nurse to order one. Laboratory data today includes a glucose of 142. From yesterday, white count was 7.7, hemoglobin 12.7, and platelet count was normal. Sodium 143, potassium 4.5, chlorides 109, CO2 19, anion gap 15, BUN 7, creatinine 0.59. Magnesium was 1.5. No recent chest x-ray. The patient is currently on Flagyl. Progress note dated 06/17/2023. 68-year-old female seen in consultation yesterday. She seen in room 257, intensive care unit. The patient is postoperative day #2, status post exploratory laparotomy, extensive lysis of adhesions, and partial omentectomy. The patient is currently on oxygen, at 2 L. An NG tube remains in place. She's getting saline at 75 mL an hour. She's doing reasonably well on her incentive spirometer. She is having an apparent reaction to chlorhexidine. I recommend some Benadryl. White count of 7.8, hemoglobin 11, hematocrit 33.6, and a normal platelet count. Sodium 142, potassium 3.8, chlorides 109, CO2 17, anion gap 16, BUN 6, and creatinine 0.46. Calcium is 8.1 with magnesium of 1.4. Progress note dated 06/18/2023. 68-year-old female seen in consultation 2 days ago. The patient still is in the intensive care unit, room 257. The patient has an NG tube in place, and is on room air. She is receiving saline at 75 mL an hour. Labs include a white count of 7, hemoglobin 11.4, hematocrit 34.4, and platelet count of 287,000. Sodium 140, potassium 3.2, chlorides 106, CO2 23, BUN 3, creatinine 0.43. Glucose 148. Calcium is 8. The patient does complain of abdominal tenderness. Progress note dated 06/19/2023. 68-year-old female seen in consultation 3 days ago. She seen today again in room 257. Patient still has the NG tube still in place. She's receiving saline at 75 mL an hour, and TPN at 30 mL an hour. The epidural pain catheter, has been removed. Sodium 137, potassium 3.2, chlorides 103, CO2 27, BUN 3, creatinine 0.42. Magnesium is 1.4. Phosphorus is 2.0. Chest x-ray from yesterday, shows no evidence of pleural effusion, pneumothorax, or focal consolidation. Progress note dated 06/20/2023. 68-year-old female seen in room 257. The NG tube has been removed. The patient's on room air. She is receiving saline at 75 mL an hour. She's getting TPN at 83 mL an hour. According to the nurse, she had an uneventful night. Labs today include a sodium 136, potassium 3.6, chlorides 102, CO2 26, BUN 4, creatinine 0.4. Glucose 288. Magnesium 1.5 phosphorus 2.2 and calcium 8.0. No chest x-ray today. The patient is seen today 06/21/2023 in follow-up on the regular medical floor. She is awake and alert in no acute distress. Resting comfortably in bed. Maintaining good O2 saturations in the 90s on room air. Continues to work with the incentive spirometer. Normal saline at 75 once per hour. She is being nourished with TPN at 85 ML's per hour. Sodium 136. Potassium 4.0. Bicarb 26. BUN 13. Creatinine 0.40. Glucose 321. AST 30. ALT 35. Albumin 2.7. She is continued on heparin for DVT prophylaxis. Abdominal x-ray revealed bowel gas pattern likely reflective of ileus. No gross free air detected. NG tube was removed on 06/19/2023. The patient is seen today 06/22/2023 in follow-up on the regular medical floor. She is resting quite comfortably in bed. Awake and alert in no acute distress. She is maintaining good O2 saturations in the 90s on room air. She remains on TPN at 85 ML's per hour. Normal saline at 75 ML's per hour. She is thirsty. She is still on ice chips only. Sodium 136. Potassium 4.0. Bicarb 23. BUN 9. Creatinine 0.44. Magnesium 1.5. Glucose 253. Heparin for DVT prophylaxis. on 06/23/2023, the patient is being seen for a follow-up. The patient is on TPN for nutritional support. The patient was noted to have increased swelling in the left upper extremity and the patient was given an ultrasound of the left upper extremity and the patient was found to have a positive DVT in the left axillary and basilic and cephalic veins. Note that the patient has a PICC line in left upper extremity. The arm is quite swollen. The patient is sitting TPN for nutritional support of the PICC line. At the same time, the patient undergone a previous breast surgery and lymph node dissection on the right and the patient is unable to have IV access in the right upper extremity. The patient is afebrile. The patient is hemodynamically stable. Pulse ox on room air is 94%. She is alert and oriented 3. She is gradually increasing her oral intake. She had a bowel movement yesterday, none today. No nausea. No emesis in no fever. No other new complaints. The abdominal wound is dry clean and intact. No abdominal distention. No altered mentation. No shortness of breath or pleurisy or hemoptysis. The lab work from today shows a white cell count of 8.7, hemoglobin was 12.5 and a platelet count of 465 and the sodium level is at 136, potassium of 4.3, BUN is at 30 with a creatinine of 0.4 and a glucose of 309. On 06/24/2023, the patient is still having some nausea and she was placed in to bowel rest. The PICC line was removed from the left upper extremity and the TPN is discontinued. She does have some residual swelling in the left upper extremity. No abdominal pain. No abdominal distention. She has positive bowel sounds. The recent echo that time 0.9 with a hemoglobin 12.9 and a platelet count of 540. Urine is a 50 with a creatinine of 0.8 and a sodium level is at 136. Triglyceride level was 422. She does have a DVT of the left upper extremity. She'll get a midline On 06/25/2023, the patient is on clear liquid diet. She is having bowel movements. No abdominal pain. No nausea or emesis. Her left upper extremity remains swollen and the patient was started on anticoagulation with Eliquis. The PICC line has been removed and the patient is a midline in the right upper extremity. She remains on room air oxygen. No significant respiratory distress for now. No nausea. No emesis. Sodium level is at 138, BUN is at 60 with a creatinine of 0.5 and a calcium level is at 8.3. Objective - Vital Signs Vital signs: Vital Signs Temp 97.8 F 06/25/23 07:21 Pulse 72 06/25/23 07:21 Resp 18 06/25/23 07:21 BP 155/76 06/25/23 07:21 Pulse Ox 97 06/25/23 07:21 FiO2 Intake & Output 06/24/23 06/25/23 06/25/23 18:59 06:59 18:59 Other: Voiding Method Toilet Bedside Commode Bedside Commode # Voids 4 3 # Bowel Movements 3 - Exam GENERAL EXAM: Alert, pleasant 68-year-old female, on room air, resting in bed, comfortable in no apparent distress. HEAD: Normocephalic. EYES: Normal reaction of pupils, equal size. NOSE: Clear with pink turbinates. THROAT: No erythema or exudates. NECK: No masses, no JVD. CHEST: No chest wall deformity. LUNGS: Equal air entry with no crackles, wheeze, rhonchi or dullness. CVS: S1 and S2 normal with no audible murmur, regular rhythm. ABDOMEN: Mild tenderness at incision site. Dressing dry and intact. Mild distention. SPINE: No scoliosis or deformity SKIN: No rashes CENTRAL NERVOUS SYSTEM: No focal deficits, tone is normal in all 4 extremities. EXTREMITIES: There is no peripheral edema. No clubbing, no cyanosis. Peripheral pulses are intact.the left upper extremity is more swollen compared to right and the PICC line has been removed - Labs CBC & Chem 7: 06/24/23 05:11 06/25/23 05:59 Labs: Abnormal Lab Results - Last 24 Hours (Table) 06/24/23 06/24/23 06/25/23 Range/Units 16:30 20:53 05:59 Glucose 220 H (74-99) mg/dL POC Glucose (mg/dL) 242 H 207 H (70-110) mg/dL Calcium 8.3 L (8.4-10.2) mg/dL 06/25/23 06/25/23 Range/Units 06:18 11:26 Glucose (74-99) mg/dL POC Glucose (mg/dL) 215 H 326 H (70-110) mg/dL Calcium (8.4-10.2) mg/dL Assessment and Plan Plan: Small bowel obstruction secondary to intra-abdominal adhesions. Status post exploratory laparotomy with extensive lysis of adhesions and partial omentecto my. Post operative day # 10, tolerating clear liquid diet and having bowel movements. Patient is currently off TPN Hypertension, stable Left upper extremity DVT involving the axillary and basilic and cephalic veins confirmed by ultrasound Dopplers. no signs of any respiratory distress. The patient has significant swelling of the left upper extremity. The patient is currently on anticoagulants with Eliquis. History of CVA History of diabetes mellitus History of esophageal reflux disease Hyperlipidemia Hypertension Osteoarthritis History of breast cancer History of uterine cancer Plan: TPN discontinued PICC line removed Continue anticoagulation with Eliquis Keep the left upper extremity elevated Gradually advance diet as tolerated No significant nausea and the patient is stooling Stable and on room air
[2023-06-25] MEDS ORDERED: guaiFENesin SYRUP 100MG/5ML 200 MG/10 ML CUP PO PRN (14:31)
--- NOTE | 2023-06-25 14:34 | P.PN ---
Subjective Progress note Date of service 06/25/[address] Wood. Patient seen and evaluated [id number] Patient feeling better today and appear on the steps for recovery after prolonged ileus postoperatively. Patient has bowel sound, passing gases, my normal BMs Vital sign: #1 temperature 97.5 F oral, heart rate 68 bpm regular sinus, respiratory rate 17/m nonlabored. And her oxygen saturation ranging between 97 and 93. On room air. Her blood pressure 131/66 which is good control. The able to put midline in the right forearm for IV fluid. Dr. Pena started her on an elliquis 10 mg twice a day. Patient able to keep medication pale down without nausea and vomiting. On exam head was normocephalic and atraumatic, normal hearing, pupil equal reactive, oropharynx missing teeth only one tooth in the upper jaw and to 2 in the lower jaw. Neck was supple no JVD no thyromegaly no lymphadenopathy trachea midline Chest clear to auscultation and percussion no wheezes no rhonchi's Heart: Regular sinus rhythm no chest pain no arrhythmias Abdomen: Positive bowel sounds and improve the tenderness, still mild distention that she passing gas Extremities lower extremities no edema positive pulses, upper extremities she had swelling of the left arm improved with the underlying DVT of the axillary vein and superficial fascial vein thromboses of the basilic and cephalic. Right upper arm IV appear to be infusing Neurologically stable no seizure disorder receiving medication orally. Assessment: #1. The patient started in the healing process and is elution of the postoperative ileus #2 status post exploratory laparotomy for small bowel obstruction with severe adhesions. #3 prolonged postoperative ileus #4 status post temporary TPN. #5 status of left arm DVT and PICC line has been pulled out #6 start of novel anticoagulant by Dr. Pena #7 history of COPD and cough started Robitussin #8 diabetes mellitus on insulin, once we have intact GI tract will start oral medication as well for antidiabetic. #9 history of bilateral breast mastectomy for cancer and colon cancer resection, hysterectomy, section prior to that Plan: #1 continue monitoring the blood pressure #2 monitoring her post operative ileus and once patient improving, her abdominal decompress then maybe tomorrow starting to advance oral diet as long as no nausea or vomiting or abdominal pain and patient tolerating the full liquid. #3 so far today able to take her oral medication without nausea or vomiting will continue as well as seizure medication. #4 continue ambulation #5 once patient able to have a full male and ambulatory and the blood pressure fairly controlled she will be able to go home we are currently very early for that Objective - Vital Signs Vital signs: Vital Signs Temp 97.5 F L 06/25/23 13:31 Pulse 68 06/25/23 13:31 Resp 17 06/25/23 13:31 BP 131/66 06/25/23 13:31 Pulse Ox 93 L 06/25/23 13:31 FiO2 Intake & Output 06/24/23 06/25/23 06/25/23 18:59 06:59 18:59 Weight 86.9 kg Other: Voiding Method Toilet Bedside Commode Bedside Commode # Voids 4 3 # Bowel Movements 3 - Labs CBC & Chem 7: 06/24/23 05:11 06/25/23 05:59 Labs: Abnormal Lab Results - Last 24 Hours (Table) 06/24/23 06/24/23 06/25/23 Range/Units 16:30 20:53 05:59 Glucose 220 H (74-99) mg/dL POC Glucose (mg/dL) 242 H 207 H (70-110) mg/dL Calcium 8.3 L (8.4-10.2) mg/dL 06/25/23 06/25/23 Range/Units 06:18 11:26 Glucose (74-99) mg/dL POC Glucose (mg/dL) 215 H 326 H (70-110) mg/dL Calcium (8.4-10.2) mg/dL
[2023-06-25 16:22] LABS: Glucose,Whole Blood 262 mg/dL (70-110)
[2023-06-25] MEDS: SODIUM CHLORIDE 0.9% 1,000 ML IV SCH ×2 (17:19)
[2023-06-25] MEDS: amLODIPine 10 MG TAB PO SCH (20:39)
[2023-06-25 21:08] LABS: Glucose,Whole Blood 243 mg/dL (70-110)
[2023-06-26] MEDS: SODIUM CHLORIDE 0.9% 1,000 ML IV SCH ×2 (03:48→20:13)
[2023-06-26 06:29] LABS: Glucose,Whole Blood 187 mg/dL (70-110)
[2023-06-26] MEDS: INSULIN REGULAR 100 UNIT/ML VIAL (IV) SQ SCH ×3 (06:40→16:55)
[2023-06-26] MEDS: METOCLOPRAMIDE 5 MG/ML 2 ML VIAL IVP SCH ×2 (06:45→12:48)
[2023-06-26 07:26] LABS: African American GFR (CKD) >90 (>60 ml/min/1.73 sqM); Anion Gap 9 mmol/L; Blood Urea Nitrogen 9 mg/dL (7-17); Calcium 8.1 mg/dL (8.4-10.2); Carbon Dioxide 22 mmol/L (22-30); Chloride 107 mmol/L (98-107); Glucose 179 mg/dL (74-99); Non-African American GFR(CKD) >90 (>60 ml/min/1.73 sqM); Sodium 138 mmol/L (137-145)
[2023-06-26 07:40] LABS: Potassium 4.4 mmol/L (3.5-5.1)
[2023-06-26] MEDS: hydrALAZINE HCL 50 MG TAB PO SCH ×3 (09:10→20:45)
[2023-06-26] MEDS: Apixaban Initiation Dose--VTE 5 MG TAB PO SCH ×2 (09:10→20:45)
[2023-06-26] MEDS: cloNIDine HCL 0.2 MG TAB PO SCH ×3 (09:10→20:45)
[2023-06-26] MEDS: lisinopriL 20 MG TAB PO SCH ×2 (09:10→20:44)
[2023-06-26] MEDS: levETIRAcetam 500 MG TAB PO SCH ×2 (09:10→20:44)
[2023-06-26] MEDS: METOPROLOL TARTRATE 50 MG TAB PO SCH ×3 (09:10→20:45)
[2023-06-26] MEDS: SIMETHICONE 40 MG/0.6 ML DROPS 2,000 MG/30 ML BOTTLE PO SCH ×4 (09:11→20:53)
[2023-06-26] MEDS: carBAMazepine 300 MG CPMP.12HR PO SCH ×2 (09:11→20:44)
[2023-06-26] MEDS: PANTOPRAZOLE 40 MG/10 ML VIAL IVP SCH (09:12)
[2023-06-26] MEDS: ONDANSETRON 4 MG TAB PO SCH (09:12)
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
[2023-06-26 12:01] LABS: Glucose,Whole Blood 252 mg/dL (70-110)
--- NOTE | 2023-06-26 13:35 | P.PN ---
Subjective Progress Note Date: 06/26/23 Progress note Date of service 06/26/[address] Wood Patient seen in [id number]. Patient stated that she had loose bowel movement and diarrhea twice today, no nausea no vomiting, able to tolerate her medication orally. Vital sign indicating blood pressure 148/75, mean blood pressure 99, oxygen saturation 97% on room air, respiratory rate 17 nonlabored, heart rate 64 bpm, Her temperature 90.8 F oral. Blood sugar still hyperglycemia and last POC glucose 252 we'll start small dose of glipizide 2.5 mg and added hypoglycemic protocol. Renal function stable GFR more than 90. Electrolytes within normal limit potassium 4.4 we'll check for magnesium tomorrow and also electrolyte after she had diarrhea which post ileus, postoperative and hopefully continue to improve Will discontinue IV medication for hypertension as patient tolerating oral medication. And able to retain the medicine including the seizure medication. Carbamazepine level 7.1 which is stable. Patient followed by Dr. Ribera and absence of Dr. Hart. Patient on full liquid diet and Dr. Ribera will adjust diet program. On exam patient appears to be improving clinically Conscious alert oriented 3 Head and neck no changes Chest is clear no wheezes no rhonchi's Abdomen also bowel sound with the episodes of diarrhea no nausea no vomiting still has the abdominal brace and mild distention bitchy passing gas Extremities no edema, of the lower extremities Left upper extremities has been improving with the novel anticoagulant. Peripheral IV in the left forearm. Neurological: No evidence of seizure disorder breakthrough and she is on medication. Assessment: Patient progressing to the improvement of post operative ileus Status post small bowel obstruction Status post exploratory laparotomy Status post postoperative ileus DVT of the left upper extremities on anticoagulant Essential hypertension with resistant hypertension currently improved Diabetes mellitus type 2 has been monitored and controlled with insulin and will start oral hypoglycemic agent as a trial. Plan: #1 we discontinue IV medication except for enalapril IV for emergency #2 discontinuation of the hydralazine IV #3 discontinuation of DTS skin patch. #4 starting glipizide 2.5 mg once in the morning as a trial for oral hypoglycemic agent if tolerated with the also ordered hypoglycemic protocol as well. #5 obtain magnesium, BMP, CBC with differential. #6 advancing diet per surgeon's. Objective - Vital Signs Vital signs: Vital Signs Temp 98.0 F 06/26/23 07:21 Pulse 64 06/26/23 07:21 Resp 17 06/26/23 07:21 BP 148/75 06/26/23 07:21 Pulse Ox 97 06/26/23 07:21 FiO2 Intake & Output 06/25/23 06/26/23 06/26/23 18:59 06:59 18:59 Intake Total 360 Balance 360 Weight 86.9 kg Intake: Oral 360 Other: Voiding Method Bedside Commode # Voids 3 1 1 - Labs CBC & Chem 7: 06/24/23 05:11 06/26/23 06:51 Labs: Abnormal Lab Results - Last 24 Hours (Table) 06/25/23 06/25/23 06/26/23 Range/Units 16:21 21:06 06:28 Glucose (74-99) mg/dL POC Glucose (mg/dL) 262 H 243 H 187 H (70-110) mg/dL Calcium (8.4-10.2) mg/dL 06/26/23 06/26/23 Range/Units 06:51 11:56 Glucose 179 H (74-99) mg/dL POC Glucose (mg/dL) 252 H (70-110) mg/dL Calcium 8.1 L (8.4-10.2) mg/dL
--- NOTE | 2023-06-26 13:53 | P.PN ---
Subjective Progress Note Date: 06/26/23 CHIEF COMPLAINT: SBO HISTORY OF PRESENT ILLNESS: Patient is postop day #11 status post exploratory laparotomy with extensive lysis of adhesions and partial omentectomy. Patient has had multiple bowel movements. Her stools have been loose. She denies any nausea vomiting. She reports improvement in her pain. Patient tolerated clear liquids. Afebrile. Dr. Torres is covering for Dr. Levi PHYSICAL EXAM: VITAL SIGNS: Reviewed. GENERAL: Well-developed in no acute distress. ABDOMEN: Soft. Mildly distended. minimal tenderness at incision site. Incisional dressing clean dry and intact. NEUROLOGIC: Alert and oriented. Cranial nerves II through XII grossly intact. ASSESSMENT: 1. Small bowel obstruction secondary to intra-abdominal adhesions. Status post exploratory laparotomy with extensive lysis of adhesions and partial omentectomy 2. Postoperative ileus 3. New DVT left arm PLAN: -Advance diet to full liquids -Discontinue Reglan due to the diarrhea -Start Ensure clears -Encouraged patient to ambulate -Continue Zofran -Continue Mylicon gas drops -Continue pain management Physician Sanitation Superintendent note has been reviewed by physician. Signing provider agrees with the documented findings, assessment, and plan of care. Objective - Vital Signs Vital signs: Vital Signs Temp 98.0 F 06/26/23 07:21 Pulse 64 06/26/23 07:21 Resp 17 06/26/23 07:21 BP 148/75 06/26/23 07:21 Pulse Ox 97 06/26/23 07:21 FiO2 Intake & Output 06/25/23 06/26/23 06/26/23 18:59 06:59 18:59 Weight 86.9 kg Other: Voiding Method Bedside Commode # Voids 3 1 1 - Labs CBC & Chem 7: 06/24/23 05:11 06/26/23 06:51 Labs: Abnormal Lab Results - Last 24 Hours (Table) 06/25/23 06/25/23 06/25/23 Range/Units 11:26 16:21 21:06 Glucose (74-99) mg/dL POC Glucose (mg/dL) 326 H 262 H 243 H (70-110) mg/dL Calcium (8.4-10.2) mg/dL 06/26/23 06/26/23 Range/Units 06:28 06:51 Glucose 179 H (74-99) mg/dL POC Glucose (mg/dL) 187 H (70-110) mg/dL Calcium 8.1 L (8.4-10.2) mg/dL
--- NOTE | 2023-06-26 15:22 | P.PN ---
Subjective Progress Note Date: 06/26/23 This is a 68-year-old female seen today in the intensive care unit, room 257. The patient apparently was admitted to the hospital back on June 10 or abdominal pain. The patient was found have a small bowel obstruction. Today's postop day #1, status post exploratory laparotomy, extensive lysis of adhesions, and partial omentectomy. The surgery was done by Dr. Levi. Currently, the patient seemed be doing relatively well. She is on 3 L of oxygen. She's getting saline at 75 mL an hour. An NG tube in. A pain pump is available for her, in terms of pain control. We encourage her to do the incentive spirometry, every hour, and I notice, there is not one at the bedside, so I asked the nurse to order one. Laboratory data today includes a glucose of 142. From yesterday, white count was 7.7, hemoglobin 12.7, and platelet count was normal. Sodium 143, potassium 4.5, chlorides 109, CO2 19, anion gap 15, BUN 7, creatinine 0.59. Magnesium was 1.5. No recent chest x-ray. The patient is currently on Flagyl. Progress note dated 06/17/2023. 68-year-old female seen in consultation yesterday. She seen in room 257, intensive care unit. The patient is postoperative day #2, status post exploratory laparotomy, extensive lysis of adhesions, and partial omentectomy. The patient is currently on oxygen, at 2 L. An NG tube remains in place. She's getting saline at 75 mL an hour. She's doing reasonably well on her incentive spirometer. She is having an apparent reaction to chlorhexidine. I recommend some Benadryl. White count of 7.8, hemoglobin 11, hematocrit 33.6, and a normal platelet count. Sodium 142, potassium 3.8, chlorides 109, CO2 17, anion gap 16, BUN 6, and creatinine 0.46. Calcium is 8.1 with magnesium of 1.4. Progress note dated 06/18/2023. 68-year-old female seen in consultation 2 days ago. The patient still is in the intensive care unit, room 257. The patient has an NG tube in place, and is on room air. She is receiving saline at 75 mL an hour. Labs include a white count of 7, hemoglobin 11.4, hematocrit 34.4, and platelet count of 287,000. Sodium 140, potassium 3.2, chlorides 106, CO2 23, BUN 3, creatinine 0.43. Glucose 148. Calcium is 8. The patient does complain of abdominal tenderness. Progress note dated 06/19/2023. 68-year-old female seen in consultation 3 days ago. She seen today again in room 257. Patient still has the NG tube still in place. She's receiving saline at 75 mL an hour, and TPN at 30 mL an hour. The epidural pain catheter, has been removed. Sodium 137, potassium 3.2, chlorides 103, CO2 27, BUN 3, creatinine 0.42. Magnesium is 1.4. Phosphorus is 2.0. Chest x-ray from yesterday, shows no evidence of pleural effusion, pneumothorax, or focal consolidation. Progress note dated 06/20/2023. 68-year-old female seen in room 257. The NG tube has been removed. The patient's on room air. She is receiving saline at 75 mL an hour. She's getting TPN at 83 mL an hour. According to the nurse, she had an uneventful night. Labs today include a sodium 136, potassium 3.6, chlorides 102, CO2 26, BUN 4, creatinine 0.4. Glucose 288. Magnesium 1.5 phosphorus 2.2 and calcium 8.0. No chest x-ray today. The patient is seen today 06/21/2023 in follow-up on the regular medical floor. She is awake and alert in no acute distress. Resting comfortably in bed. Maintaining good O2 saturations in the 90s on room air. Continues to work with the incentive spirometer. Normal saline at 75 once per hour. She is being nourished with TPN at 85 ML's per hour. Sodium 136. Potassium 4.0. Bicarb 26. BUN 13. Creatinine 0.40. Glucose 321. AST 30. ALT 35. Albumin 2.7. She is continued on heparin for DVT prophylaxis. Abdominal x-ray revealed bowel gas pattern likely reflective of ileus. No gross free air detected. NG tube was removed on 06/19/2023. The patient is seen today 06/22/2023 in follow-up on the regular medical floor. She is resting quite comfortably in bed. Awake and alert in no acute distress. She is maintaining good O2 saturations in the 90s on room air. She remains on TPN at 85 ML's per hour. Normal saline at 75 ML's per hour. She is thirsty. She is still on ice chips only. Sodium 136. Potassium 4.0. Bicarb 23. BUN 9. Creatinine 0.44. Magnesium 1.5. Glucose 253. Heparin for DVT prophylaxis. on 06/23/2023, the patient is being seen for a follow-up. The patient is on TPN for nutritional support. The patient was noted to have increased swelling in the left upper extremity and the patient was given an ultrasound of the left upper extremity and the patient was found to have a positive DVT in the left axillary and basilic and cephalic veins. Note that the patient has a PICC line in left upper extremity. The arm is quite swollen. The patient is sitting TPN for nutritional support of the PICC line. At the same time, the patient undergone a previous breast surgery and lymph node dissection on the right and the patient is unable to have IV access in the right upper extremity. The patient is afebrile. The patient is hemodynamically stable. Pulse ox on room air is 94%. She is alert and oriented 3. She is gradually increasing her oral intake. She had a bowel movement yesterday, none today. No nausea. No emesis in no fever. No other new complaints. The abdominal wound is dry clean and intact. No abdominal distention. No altered mentation. No shortness of breath or pleurisy or hemoptysis. The lab work from today shows a white cell count of 8.7, hemoglobin was 12.5 and a platelet count of 465 and the sodium level is at 136, potassium of 4.3, BUN is at 30 with a creatinine of 0.4 and a glucose of 309. On 06/24/2023, the patient is still having some nausea and she was placed in to bowel rest. The PICC line was removed from the left upper extremity and the TPN is discontinued. She does have some residual swelling in the left upper extremity. No abdominal pain. No abdominal distention. She has positive bowel sounds. The recent echo that time 0.9 with a hemoglobin 12.9 and a platelet count of 540. Urine is a 50 with a creatinine of 0.8 and a sodium level is at 136. Triglyceride level was 422. She does have a DVT of the left upper extremity. She'll get a midline On 06/25/2023, the patient is on clear liquid diet. She is having bowel movements. No abdominal pain. No nausea or emesis. Her left upper extremity remains swollen and the patient was started on anticoagulation with Eliquis. The PICC line has been removed and the patient is a midline in the right upper extremity. She remains on room air oxygen. No significant respiratory distress for now. No nausea. No emesis. Sodium level is at 138, BUN is at 60 with a creatinine of 0.5 and a calcium level is at 8.3. On today's evaluation of 06/26/2023, the patient is progressively improving. There is improvement in her postoperative ileus. The patient is tolerating oral intake. Clinically stable and hemodynamically stable. The patient continues to have some swelling in the left upper extremity as stated earlier. No major respiratory distress. BUN is at 9 with a creatinine of 0.7 sodium levels of 138. She is restart enteral heparin restarted on her antihypertensive medication which includes Catapres, amlodipine, metoprolol and the patient is receiving IV Vasotec and his sodiums basis. For now, the patient is still on anticoagulation. Objective - Vital Signs Vital signs: Vital Signs Temp 98.0 F 06/26/23 07:21 Pulse 64 06/26/23 07:21 Resp 17 06/26/23 07:21 BP 148/75 06/26/23 07:21 Pulse Ox 97 06/26/23 07:21 FiO2 Intake & Output 06/25/23 06/26/23 06/26/23 18:59 06:59 18:59 Weight 86.9 kg Other: Voiding Method Bedside Commode # Voids 3 1 1 - Exam GENERAL EXAM: Alert, pleasant 68-year-old female, on room air, resting in bed, comfortable in no apparent distress. HEAD: Normocephalic. EYES: Normal reaction of pupils, equal size. NOSE: Clear with pink turbinates. THROAT: No erythema or exudates. NECK: No masses, no JVD. CHEST: No chest wall deformity. LUNGS: Equal air entry with no crackles, wheeze, rhonchi or dullness. CVS: S1 and S2 normal with no audible murmur, regular rhythm. ABDOMEN: Mild tenderness at incision site. Dressing dry and intact. Mild distention. SPINE: No scoliosis or deformity SKIN: No rashes CENTRAL NERVOUS SYSTEM: No focal deficits, tone is normal in all 4 extremities. EXTREMITIES: There is no peripheral edema. No clubbing, no cyanosis. Peripheral pulses are intact.the left upper extremity is more swollen compared to right and the PICC line has been removed - Labs CBC & Chem 7: 06/24/23 05:11 06/26/23 06:51 Labs: Abnormal Lab Results - Last 24 Hours (Table) 06/25/23 06/25/23 06/26/23 Range/Units 16:21 21:06 06:28 Glucose (74-99) mg/dL POC Glucose (mg/dL) 262 H 243 H 187 H (70-110) mg/dL Calcium (8.4-10.2) mg/dL 06/26/23 Range/Units 06:51 Glucose 179 H (74-99) mg/dL POC Glucose (mg/dL) (70-110) mg/dL Calcium 8.1 L (8.4-10.2) mg/dL Assessment and Plan Plan: Small bowel obstruction secondary to intra-abdominal adhesions. Status post exploratory laparotomy with extensive lysis of adhesions and partial omentectomy. Post operative day # 11, tolerating clear liquid diet and having bowel movements. Patient is currently off TPN Hypertension, stable Left upper extremity DVT involving the axillary and basilic and cephalic veins confirmed by ultrasound Dopplers. no signs of any respiratory distress. The patient has significant swelling of the left upper extremity. The patient is currently on anticoagulants with Eliquis. History of CVA History of diabetes mellitus History of esophageal reflux disease Hyperlipidemia Hypertension Osteoarthritis History of breast cancer History of uterine cancer Plan: Advance diet as tolerated Continue oral antihypertensive medications Continue anticoagulation with Eliquis Keep the left upper extremity elevated Gradually advance diet as tolerated No significant nausea and the patient is stooling Stable and on room air
[2023-06-26 16:50] LABS: Glucose,Whole Blood 280 mg/dL (70-110)
[2023-06-26 20:29] LABS: Glucose,Whole Blood 252 mg/dL (70-110)
[2023-06-26] MEDS: amLODIPine 10 MG TAB PO SCH (20:44)
[2023-06-27 05:56] LABS: Glucose,Whole Blood 205 mg/dL (70-110)
[2023-06-27] MEDS: INSULIN REGULAR 100 UNIT/ML VIAL (IV) SQ SCH ×3 (06:36→16:46)
[2023-06-27] MEDS: lisinopriL 20 MG TAB PO SCH ×2 (07:55→21:35)
[2023-06-27] MEDS: Apixaban Initiation Dose--VTE 5 MG TAB PO SCH ×2 (07:55→21:34)
[2023-06-27] MEDS: carBAMazepine 300 MG CPMP.12HR PO SCH ×2 (07:55→21:35)
[2023-06-27] MEDS: levETIRAcetam 500 MG TAB PO SCH ×2 (07:55→21:35)
[2023-06-27] MEDS: METOPROLOL TARTRATE 50 MG TAB PO SCH ×3 (07:55→21:35)
[2023-06-27] MEDS: cloNIDine HCL 0.2 MG TAB PO SCH ×3 (07:55→21:35)
[2023-06-27] MEDS: hydrALAZINE HCL 50 MG TAB PO SCH ×3 (07:55→21:35)
[2023-06-27] MEDS: SIMETHICONE 40 MG/0.6 ML DROPS 2,000 MG/30 ML BOTTLE PO SCH ×4 (07:56→20:59)
[2023-06-27 10:58] LABS: Basophils # (A) 0.07 X 10*3/uL (0.00-0.10); Basophils % (A) 1.1 %; Eosinophils # (A) 0.36 X 10*3/uL (0.04-0.35); Eosinophils % (A) 5.5 %; HCT 34.5 % (37.2-46.3); HGB 10.9 g/dL (12.0-15.0); Lymphocytes # (A) 2.56 X 10*3/uL (0.90-5.00); Lymphocytes % (A) 38.8 %; MCH 28.8 pg (27.0-32.0); MCHC 31.6 g/dL (32.0-37.0); Mean Platelet Volume 9.8 FL (9.5-12.2); Monocytes # (A) 0.49 X 10*3/uL (0.20-1.00); Monocytes % (A) 7.4 %; NRBC Per 100 WBC 0 X 10*3/uL (0.00-0.01); Neutrophils % (A) 45.5 %; Platelet Count 439 X 10*3/uL (140-440); RBC 3.79 X 10*6/uL (4.10-5.20); RDW 13.5 % (11.5-14.5); WBC 6.59 X 10*3/uL (4.50-10.00)
[2023-06-27 11:19] LABS: Blood Urea Nitrogen 4.2 mg/dL (9.0-27.0); Calcium 8.5 mg/dL (8.7-10.3); Carbon Dioxide 22.9 mmol/L (21.6-31.8); Chloride 105 mmol/L (96-109); Glucose 198 mg/dL (70-110); Magnesium 1.6 mg/dL (1.5-2.4); Potassium 4.1 mmol/L (3.5-5.5); Sodium 138 mmol/L (135-145)
[2023-06-27 11:24] LABS: Glucose,Whole Blood 265 mg/dL (70-110)
[2023-06-27] MEDS ORDERED: MAGNESIUM SULFATE-D5W PMX 1 GM in DEXTROSE/WATER 1 100ML.BAG IVPB ONE (13:06)
--- NOTE | 2023-06-27 13:09 | P.PN ---
Subjective Progress Note Date: 06/27/23 CHIEF COMPLAINT: SBO HISTORY OF PRESENT ILLNESS: Patient is postop day #12 status post exploratory laparotomy with extensive lysis of adhesions and partial omentectomy. Patient denies abdominal pain. She is not requiring pain meds. Denies any nausea or vomiting. She tolerated the full liquid diet. She is having bowel movements. She is requesting advancement of diet. She has been up and ambulating. She is afebrile. WBC 6.59 Hgb 10.9 platelets [address] Torres is covering for Dr. Levi PHYSICAL EXAM: VITAL SIGNS: Reviewed. GENERAL: Well-developed in no acute distress. ABDOMEN: Soft. Mildly distended. nontender. Incisional dressing clean dry and intact. NEUROLOGIC: Alert and oriented. Cranial nerves II through XII grossly intact. ASSESSMENT: 1. Small bowel obstruction secondary to intra-abdominal adhesions. Status post exploratory laparotomy with extensive lysis of adhesions and partial omentectomy 2. Postoperative ileus 3. New DVT left arm PLAN: -Advance diet to low fiber -Patient can be discharged from surgical standpoint if tolerating diet -Replace magnesium -Encouraged patient to ambulate -Continue Zofran -Continue Mylicon gas drops -Ok to remove incisional dressing and shower Physician Glass Deposition Tender note has been reviewed by physician. Signing provider agrees with the documented findings, assessment, and plan of care. Objective - Vital Signs Vital signs: Vital Signs Temp 97.8 F 06/27/23 02:23 Pulse 57 L 06/27/23 02:23 Resp 18 06/27/23 02:23 BP 138/61 06/27/23 02:23 Pulse Ox 97 06/27/23 02:23 FiO2 Intake & Output 06/26/23 06/27/23 06/27/23 18:59 06:59 18:59 Intake Total 360 Output Total 1 Balance 359 Intake: Oral 360 Output: Urine 1 Other: # Voids 1 1 # Bowel Movements 1 - Labs CBC & Chem 7: 06/27/23 06:32 06/27/23 06:32 Labs: Abnormal Lab Results - Last 24 Hours (Table) 06/26/23 06/26/23 06/27/23 Range/Units 16:47 20:27 05:54 RBC (4.10-5.20) X 10*6/uL Hgb (12.0-15.0) g/dL Hct (37.2-46.3) % MCHC (32.0-37.0) g/dL Eosinophils # (0.04-0.35) X 10*3/uL BUN (9.0-27.0) mg/dL BUN/Creatinine Ratio (12.00-20.00) Ratio Glucose (70-110) mg/dL POC Glucose (mg/dL) 280 H 252 H 205 H (70-110) mg/dL Calcium (8.7-10.3) mg/dL 06/27/23 06/27/23 06/27/23 Range/Units 06:32 06:32 11:23 RBC 3.79 L (4.10-5.20) X 10*6/uL Hgb 10.9 L (12.0-15.0) g/dL Hct 34.5 L (37.2-46.3) % MCHC 31.6 L (32.0-37.0) g/dL Eosinophils # 0.36 H (0.04-0.35) X 10*3/uL BUN 4.2 L (9.0-27.0) mg/dL BUN/Creatinine Ratio 7.00 L (12.00-20.00) Ratio Glucose 198 H (70-110) mg/dL POC Glucose (mg/dL) 265 H (70-110) mg/dL Calcium 8.5 L (8.7-10.3) mg/dL
--- NOTE | 2023-06-27 13:15 | P.PN ---
Subjective Progress Note Date: 06/27/23 This is a 68-year-old female seen today in the intensive care unit, room 257. The patient apparently was admitted to the hospital back on June 10 or abdominal pain. The patient was found have a small bowel obstruction. Today's postop day #1, status post exploratory laparotomy, extensive lysis of adhesions, and partial omentectomy. The surgery was done by Dr. Levi. Currently, the patient seemed be doing relatively well. She is on 3 L of oxygen. She's getting saline at 75 mL an hour. An NG tube in. A pain pump is available for her, in terms of pain control. We encourage her to do the incentive spirometry, every hour, and I notice, there is not one at the bedside, so I asked the nurse to order one. Laboratory data today includes a glucose of 142. From yesterday, white count was 7.7, hemoglobin 12.7, and platelet count was normal. Sodium 143, potassium 4.5, chlorides 109, CO2 19, anion gap 15, BUN 7, creatinine 0.59. Magnesium was 1.5. No recent chest x-ray. The patient is currently on Flagyl. Progress note dated 06/17/2023. 68-year-old female seen in consultation yesterday. She seen in room 257, intensive care unit. The patient is postoperative day #2, status post exploratory laparotomy, extensive lysis of adhesions, and partial omentectomy. The patient is currently on oxygen, at 2 L. An NG tube remains in place. She's getting saline at 75 mL an hour. She's doing reasonably well on her incentive spirometer. She is having an apparent reaction to chlorhexidine. I recommend some Benadryl. White count of 7.8, hemoglobin 11, hematocrit 33.6, and a normal platelet count. Sodium 142, potassium 3.8, chlorides 109, CO2 17, anion gap 16, BUN 6, and creatinine 0.46. Calcium is 8.1 with magnesium of 1.4. Progress note dated 06/18/2023. 68-year-old female seen in consultation 2 days ago. The patient still is in the intensive care unit, room 257. The patient has an NG tube in place, and is on room air. She is receiving saline at 75 mL an hour. Labs include a white count of 7, hemoglobin 11.4, hematocrit 34.4, and platelet count of 287,000. Sodium 140, potassium 3.2, chlorides 106, CO2 23, BUN 3, creatinine 0.43. Glucose 148. Calcium is 8. The patient does complain of abdominal tenderness. Progress note dated 06/19/2023. 68-year-old female seen in consultation 3 days ago. She seen today again in room 257. Patient still has the NG tube still in place. She's receiving saline at 75 mL an hour, and TPN at 30 mL an hour. The epidural pain catheter, has been removed. Sodium 137, potassium 3.2, chlorides 103, CO2 27, BUN 3, creatinine 0.42. Magnesium is 1.4. Phosphorus is 2.0. Chest x-ray from yesterday, shows no evidence of pleural effusion, pneumothorax, or focal consolidation. Progress note dated 06/20/2023. 68-year-old female seen in room 257. The NG tube has been removed. The patient's on room air. She is receiving saline at 75 mL an hour. She's getting TPN at 83 mL an hour. According to the nurse, she had an uneventful night. Labs today include a sodium 136, potassium 3.6, chlorides 102, CO2 26, BUN 4, creatinine 0.4. Glucose 288. Magnesium 1.5 phosphorus 2.2 and calcium 8.0. No chest x-ray today. The patient is seen today 06/21/2023 in follow-up on the regular medical floor. She is awake and alert in no acute distress. Resting comfortably in bed. Maintaining good O2 saturations in the 90s on room air. Continues to work with the incentive spirometer. Normal saline at 75 once per hour. She is being nourished with TPN at 85 ML's per hour. Sodium 136. Potassium 4.0. Bicarb 26. BUN 13. Creatinine 0.40. Glucose 321. AST 30. ALT 35. Albumin 2.7. She is continued on heparin for DVT prophylaxis. Abdominal x-ray revealed bowel gas pattern likely reflective of ileus. No gross free air detected. NG tube was removed on 06/19/2023. The patient is seen today 06/22/2023 in follow-up on the regular medical floor. She is resting quite comfortably in bed. Awake and alert in no acute distress. She is maintaining good O2 saturations in the 90s on room air. She remains on TPN at 85 ML's per hour. Normal saline at 75 ML's per hour. She is thirsty. She is still on ice chips only. Sodium 136. Potassium 4.0. Bicarb 23. BUN 9. Creatinine 0.44. Magnesium 1.5. Glucose 253. Heparin for DVT prophylaxis. on 06/23/2023, the patient is being seen for a follow-up. The patient is on TPN for nutritional support. The patient was noted to have increased swelling in the left upper extremity and the patient was given an ultrasound of the left upper extremity and the patient was found to have a positive DVT in the left axillary and basilic and cephalic veins. Note that the patient has a PICC line in left upper extremity. The arm is quite swollen. The patient is sitting TPN for nutritional support of the PICC line. At the same time, the patient undergone a previous breast surgery and lymph node dissection on the right and the patient is unable to have IV access in the right upper extremity. The patient is afebrile. The patient is hemodynamically stable. Pulse ox on room air is 94%. She is alert and oriented 3. She is gradually increasing her oral intake. She had a bowel movement yesterday, none today. No nausea. No emesis in no fever. No other new complaints. The abdominal wound is dry clean and intact. No abdominal distention. No altered mentation. No shortness of breath or pleurisy or hemoptysis. The lab work from today shows a white cell count of 8.7, hemoglobin was 12.5 and a platelet count of 465 and the sodium level is at 136, potassium of 4.3, BUN is at 30 with a creatinine of 0.4 and a glucose of 309. On 06/24/2023, the patient is still having some nausea and she was placed in to bowel rest. The PICC line was removed from the left upper extremity and the TPN is discontinued. She does have some residual swelling in the left upper extremity. No abdominal pain. No abdominal distention. She has positive bowel sounds. The recent echo that time 0.9 with a hemoglobin 12.9 and a platelet count of 540. Urine is a 50 with a creatinine of 0.8 and a sodium level is at 136. Triglyceride level was 422. She does have a DVT of the left upper extremity. She'll get a midline On 06/25/2023, the patient is on clear liquid diet. She is having bowel movements. No abdominal pain. No nausea or emesis. Her left upper extremity remains swollen and the patient was started on anticoagulation with Eliquis. The PICC line has been removed and the patient is a midline in the right upper extremity. She remains on room air oxygen. No significant respiratory distress for now. No nausea. No emesis. Sodium level is at 138, BUN is at 60 with a creatinine of 0.5 and a calcium level is at 8.3. On today's evaluation of 06/26/2023, the patient is progressively improving. There is improvement in her postoperative ileus. The patient is tolerating oral intake. Clinically stable and hemodynamically stable. The patient continues to have some swelling in the left upper extremity as stated earlier. No major respiratory distress. BUN is at 9 with a creatinine of 0.7 sodium levels of 138. She is restart enteral heparin restarted on her antihypertensive medication which includes Catapres, amlodipine, metoprolol and the patient is receiving IV Vasotec and his sodiums basis. For now, the patient is still on anticoagulation. On 06/27/2023, the patient is doing well. She is having bowel movements. She is ambulating. She is on room air oxygen. No respiratory distress. Left upper extremity swelling is also improving. Abdominal wound is dry clean and intact. The patient has no other new complaints otherwise for now. The patient has no issues with pain. She is completing a course of anticoagulation with Eliquis regarding her left upper extremity DVT. Home medications have been resumed. Labs from today shows the stone 6.5, he was sent 0.5 and a platelet count of 439. Sodium is at 138, potassium is at 4.4, BUN is at 4 with a creatinine of 0.6. The patient is on Vasotec as needed. The patient is taken to the 0.2 mg 3 times a day for blood pressure control. She is also on Norvasc 10 mg by mouth daily metoprolol 50 mg by mouth 3 times a day. No nausea. No emesis. Objective - Vital Signs Vital signs: Vital Signs Temp 97.8 F 06/27/23 02:23 Pulse 57 L 06/27/23 02:23 Resp 18 06/27/23 02:23 BP 138/61 06/27/23 02:23 Pulse Ox 97 06/27/23 02:23 FiO2 Intake & Output 06/26/23 06/27/23 06/27/23 18:59 06:59 18:59 Intake Total 360 Output Total 1 Balance 359 Intake: Oral 360 Output: Urine 1 Other: # Voids 1 1 # Bowel Movements 1 - Exam GENERAL EXAM: Alert, pleasant 68-year-old female, on room air, resting in bed, comfortable in no apparent distress. HEAD: Normocephalic. EYES: Normal reaction of pupils, equal size. NOSE: Clear with pink turbinates. THROAT: No erythema or exudates. NECK: No masses, no JVD. CHEST: No chest wall deformity. LUNGS: Equal air entry with no crackles, wheeze, rhonchi or dullness. CVS: S1 and S2 normal with no audible murmur, regular rhythm. ABDOMEN: Mild tenderness at incision site. Dressing dry and intact. Mild distention. SPINE: No scoliosis or deformity SKIN: No rashes CENTRAL NERVOUS SYSTEM: No focal deficits, tone is normal in all 4 extremities. EXTREMITIES: There is no peripheral edema. No clubbing, no cyanosis. Peripheral pulses are intact.the left upper extremity is more swollen compared to right and the PICC line has been removed - Labs CBC & Chem 7: 06/27/23 06:32 06/27/23 06:32 Labs: Abnormal Lab Results - Last 24 Hours (Table) 06/26/23 06/26/23 06/26/23 Range/Units 11:56 16:47 20:27 RBC (4.10-5.20) X 10*6/uL Hgb (12.0-15.0) g/dL Hct (37.2-46.3) % MCHC (32.0-37.0) g/dL Eosinophils # (0.04-0.35) X 10*3/uL POC Glucose (mg/dL) 252 H 280 H 252 H (70-110) mg/dL 06/27/23 06/27/23 Range/Units 05:54 06:32 RBC 3.79 L (4.10-5.20) X 10*6/uL Hgb 10.9 L (12.0-15.0) g/dL Hct 34.5 L (37.2-46.3) % MCHC 31.6 L (32.0-37.0) g/dL Eosinophils # 0.36 H (0.04-0.35) X 10*3/uL POC Glucose (mg/dL) 205 H (70-110) mg/dL Assessment and Plan Plan: Small bowel obstruction secondary to intra-abdominal adhesions. Status post exploratory laparotomy with extensive lysis of adhesions and partial omentectomy. Post operative day # 12, tolerating clear liquid diet and having bowel movements. Patient is currently tolerating diet Hypertension, stable, currently on a combination of metoprolol, amlodipine and clonidine. Left upper extremity DVT involving the axillary and basilic and cephalic veins confirmed by ultrasound Dopplers. no signs of any respiratory distress. The patient has significant swelling of the left upper extremity. The patient is currently on anticoagulants with Eliquis. History of CVA History of diabetes mellitus History of esophageal reflux disease Hyperlipidemia Hypertension Osteoarthritis History of breast cancer History of uterine cancer Plan: Left upper extremity swelling is improving Advance diet Continue oral antihypertensive medications Continue anticoagulation with Eliquis Keep the left upper extremity elevated Gradually advance diet as tolerated No significant nausea and the patient is stooling Stable and on room air
--- NOTE | 2023-06-27 15:24 | P.PN ---
Subjective Progress Note Date: 06/27/23 Progress note Date of service 06/27/[address] Wood Patient seen and evaluated [id number] Vital sign indicating temperature 97.8 F oral Heart rate 57 bpm Respiratory rate 18/m non-labored Blood pressure 138/61 mean 86 Oxygen saturation 97% on room air Patient is seen today evaluated she denied any complain she did not have full bowel movement today small 1 but was loose She is able to eat lunch no nausea no vomiting Able to tolerate the oral intake without nausea or vomiting. And will continue advancing the diet and ambulate as tolerated 4 times a day. If there is no nausea or vomiting, able to have a bowel movement, we'll be planning for discharge tomorrow On the exam: Conscious alert oriented 3 Head was normocephalic and atraumatic pupil was equal reactive oropharynx 12 with upper and to tooth lower Neck supple no JVD no thyromegaly no lymphadenopathy trachea midline. Chest is clear to auscultation and percussion Heart was regular sinus rhythm today he was on the bradycardic side with the controlled blood pressure. Abdomen positive bowel sounds still mildly distended but no tenderness. Extremities she had the left upper extremities edema has been improving secondary to DVT of the left upper extremities The right upper extremities infusing and to be For ambulation until patient discharged to be removed. Neurologically stable. Assessment: #1 small bowel obstruction not result followed by exploratory laparotomy followed by prolonged ileus. #2 hypertension resistant was treated IV and currently by mouth and currently controlled #3 diabetes mellitus type 2 still not well controlled started on small dose of glipizide to recheck if tolerated and patient tolerated well we'll advance the medication. #4 left upper extremities DVT on anticoagulant and will see if the patient insurance will able to continue the anticoagulation. As Mr. continue for at least 3 months. #5 mild anemia postoperative #6 renal function is stable new Plan: Ambulate as tolerated 4 times a day Advance diet as tolerated If patient able to tolerate the diet and ambulatory without nausea and vomiting and any other symptomatic problem will be planned for discharge tomorrow patient will be on an requests please check with the transplant case manager in regard of the insurance will pay for it or not. Objective - Vital Signs Vital signs: Vital Signs Temp 97.8 F 06/27/23 02:23 Pulse 57 L 06/27/23 02:23 Resp 18 06/27/23 02:23 BP 138/61 06/27/23 02:23 Pulse Ox 97 06/27/23 02:23 FiO2 Intake & Output 06/26/23 06/27/23 06/27/23 18:59 06:59 18:59 Intake Total 360 Output Total 1 Balance 359 Intake: Oral 360 Output: Urine 1 Other: # Voids 1 1 # Bowel Movements 1 - Labs CBC & Chem 7: 06/27/23 06:32 06/27/23 06:32 Labs: Abnormal Lab Results - Last 24 Hours (Table) 06/26/23 06/26/23 06/27/23 Range/Units 16:47 20:27 05:54 RBC (4.10-5.20) X 10*6/uL Hgb (12.0-15.0) g/dL Hct (37.2-46.3) % MCHC (32.0-37.0) g/dL Eosinophils # (0.04-0.35) X 10*3/uL BUN (9.0-27.0) mg/dL BUN/Creatinine Ratio (12.00-20.00) Ratio Glucose (70-110) mg/dL POC Glucose (mg/dL) 280 H 252 H 205 H (70-110) mg/dL Calcium (8.7-10.3) mg/dL 06/27/23 06/27/23 06/27/23 Range/Units 06:32 06:32 11:23 RBC 3.79 L (4.10-5.20) X 10*6/uL Hgb 10.9 L (12.0-15.0) g/dL Hct 34.5 L (37.2-46.3) % MCHC 31.6 L (32.0-37.0) g/dL Eosinophils # 0.36 H (0.04-0.35) X 10*3/uL BUN 4.2 L (9.0-27.0) mg/dL BUN/Creatinine Ratio 7.00 L (12.00-20.00) Ratio Glucose 198 H (70-110) mg/dL POC Glucose (mg/dL) 265 H (70-110) mg/dL Calcium 8.5 L (8.7-10.3) mg/dL
[2023-06-27 16:46] LABS: Glucose,Whole Blood 189 mg/dL (70-110)
[2023-06-27] MEDS: SODIUM CHLORIDE 0.9% 1,000 ML IV SCH ×2 (21:32→21:36)
[2023-06-27] MEDS: amLODIPine 10 MG TAB PO SCH (21:35)
[2023-06-27 21:43] LABS: Glucose,Whole Blood 327 mg/dL (70-110)
[2023-06-28 06:25] LABS: Glucose,Whole Blood 256 mg/dL (70-110)
[2023-06-28] MEDS: INSULIN REGULAR 100 UNIT/ML VIAL (IV) SQ SCH ×3 (06:49→16:59)
[2023-06-28] MEDS: lisinopriL 20 MG TAB PO SCH ×2 (08:45→08:46)
[2023-06-28] MEDS: hydrALAZINE HCL 50 MG TAB PO SCH ×3 (08:45→21:50)
[2023-06-28] MEDS: SIMETHICONE 40 MG/0.6 ML DROPS 2,000 MG/30 ML BOTTLE PO SCH ×5 (08:46→21:41)
[2023-06-28] MEDS: levETIRAcetam 500 MG TAB PO SCH ×2 (08:46→21:50)
[2023-06-28] MEDS: cloNIDine HCL 0.2 MG TAB PO SCH ×3 (08:46→21:50)
[2023-06-28] MEDS: METOPROLOL TARTRATE 50 MG TAB PO SCH ×3 (08:46→21:50)
[2023-06-28] MEDS: carBAMazepine 300 MG CPMP.12HR PO SCH ×2 (08:46→21:50)
[2023-06-28] MEDS: Apixaban Initiation Dose--VTE 5 MG TAB PO SCH ×2 (08:46→21:50)
[2023-06-28] MEDS: SODIUM CHLORIDE 0.9% 1,000 ML IV SCH (08:49)
[2023-06-28 11:58] LABS: Glucose,Whole Blood 215 mg/dL (70-110)
[2023-06-28] MEDS: glipiZIDE 5 MG TAB PO SCH ×2 (12:01→17:02)
--- NOTE | 2023-06-28 13:14 | P.PN ---
Subjective Progress Note Date: 06/28/23 Progress note date of service 06/28/[address] Siegel. Patient seen and evaluated [id number] today on Friday. Patient is feeling better ambulatory, no bowel movement today she still distend ed and no clear documentation 4 bowel movements yesterday and she started to eat a regular diet. Also her blood pressure mildly elevated covered with medication and I spoke to the RN in regard using lisinopril IV when necessary if still blood pressure elevated Patient also has hyperglycemia and diabetes mellitus well-controlled and started her on her home medication and use of pioglitazone 30 mg once a day as well as increasing the glipizide to 5 mg twice a added to the insulin according to sca love, patient was ready at home on Novolin insulin to scale for controlling the blood glucose. On the exam Blood pressure 158/62, mean 94, oxygen on room air 98%, respiratory rate 16 nonlabored heart rate 59 and association with the beta kellie and the clonidine Temperature 98.6 F oral. Patient conscious alert oriented able to eat and swallow food as well as the pills with no nausea or vomiting, no itching, and I advised the patient that many medicine has been removed currently as she is gradual improvement. Head was normocephalic and atraumatic pupil was equal reactive oropharynx no changes neck was supple no JVD no thyromegaly no lymphadenopathy trachea midline Chest was clear to auscultation percussion Heart was regular sinus rhythm Abdomen is distended positive bowel sounds but no bowel movement she had passing gases Extremities no edema of the lower extremities and positive pulses Upper extremities left upper extremities and swelling and edema gradual improvement The upper extremity right upper is infusing with peripheral line. Neurologically stable no seizure disorder and she continued with her medication orally. Assessment: #1 patient advised to continue ambulation as tolerated as well as discussed with her nurse. Hyper glycemia with diabetes mellitus and medication added. Status post small bowel obstruction secondary to multiple adhesion Status post exploratory laparotomy as well as omentum excision. Lysis of adhesion. Prolonged post surgery ileus. Nutritional protein calorie deficiency covered with TPN currently discontinued. Left upper extremities DVT on novel anticoagulant. Plan: If the patient able to have a bowel movement, also clearance from family service caseworker for patient insurance to cover the anticoagulant at home with the underlying left upper extremities DVT before the discharge. Ambulate as tolerated. Objective - Vital Signs Vital signs: Vital Signs Temp 98.6 F 06/28/23 07:23 Pulse 59 L 06/28/23 07:23 Resp 16 06/28/23 07:23 BP 158/62 06/28/23 07:23 Pulse Ox 98 06/28/23 07:23 FiO2 Intake & Output 06/27/23 06/28/23 06/28/23 18:59 06:59 18:59 Weight 86.9 kg Other: Voiding Method Toilet # Voids 3 1 - Labs CBC & Chem 7: 06/27/23 06:32 06/27/23 06:32 Labs: Abnormal Lab Results - Last 24 Hours (Table) 06/27/23 06/27/23 06/28/23 Range/Units 16:45 21:41 06:24 POC Glucose (mg/dL) 189 H 327 H 256 H (70-110) mg/dL 06/28/23 Range/Units 11:57 POC Glucose (mg/dL) 215 H (70-110) mg/dL
[2023-06-28] MEDS: PIOGLITAZONE 30 MG TAB PO SCH (13:22)
--- NOTE | 2023-06-28 14:08 | P.PN ---
Subjective Progress Note Date: 06/28/23 This is a 68-year-old female seen today in the intensive care unit, room 257. The patient apparently was admitted to the hospital back on June 10 or abdominal pain. The patient was found have a small bowel obstruction. Today's postop day #1, status post exploratory laparotomy, extensive lysis of adhesions, and partial omentectomy. The surgery was done by Dr. Levi. Currently, the patient seemed be doing relatively well. She is on 3 L of oxygen. She's getting saline at 75 mL an hour. An NG tube in. A pain pump is available for her, in terms of pain control. We encourage her to do the incentive spirometry, every hour, and I notice, there is not one at the bedside, so I asked the nurse to order one. Laboratory data today includes a glucose of 142. From yesterday, white count was 7.7, hemoglobin 12.7, and platelet count was normal. Sodium 143, potassium 4.5, chlorides 109, CO2 19, anion gap 15, BUN 7, creatinine 0.59. Magnesium was 1.5. No recent chest x-ray. The patient is currently on Flagyl. Progress note dated 06/17/2023. 68-year-old female seen in consultation yesterday. She seen in room 257, intensive care unit. The patient is postoperative day #2, status post exploratory laparotomy, extensive lysis of adhesions, and partial omentectomy. The patient is currently on oxygen, at 2 L. An NG tube remains in place. She's getting saline at 75 mL an hour. She's doing reasonably well on her incentive spirometer. She is having an apparent reaction to chlorhexidine. I recommend some Benadryl. White count of 7.8, hemoglobin 11, hematocrit 33.6, and a normal platelet count. Sodium 142, potassium 3.8, chlorides 109, CO2 17, anion gap 16, BUN 6, and creatinine 0.46. Calcium is 8.1 with magnesium of 1.4. Progress note dated 06/18/2023. 68-year-old female seen in consultation 2 days ago. The patient still is in the intensive care unit, room 257. The patient has an NG tube in place, and is on room air. She is receiving saline at 75 mL an hour. Labs include a white count of 7, hemoglobin 11.4, hematocrit 34.4, and platelet count of 287,000. Sodium 140, potassium 3.2, chlorides 106, CO2 23, BUN 3, creatinine 0.43. Glucose 148. Calcium is 8. The patient does complain of abdominal tenderness. Progress note dated 06/19/2023. 68-year-old female seen in consultation 3 days ago. She seen today again in room 257. Patient still has the NG tube still in place. She's receiving saline at 75 mL an hour, and TPN at 30 mL an hour. The epidural pain catheter, has been removed. Sodium 137, potassium 3.2, chlorides 103, CO2 27, BUN 3, creatinine 0.42. Magnesium is 1.4. Phosphorus is 2.0. Chest x-ray from yesterday, shows no evidence of pleural effusion, pneumothorax, or focal consolidation. Progress note dated 06/20/2023. 68-year-old female seen in room 257. The NG tube has been removed. The patient's on room air. She is receiving saline at 75 mL an hour. She's getting TPN at 83 mL an hour. According to the nurse, she had an uneventful night. Labs today include a sodium 136, potassium 3.6, chlorides 102, CO2 26, BUN 4, creatinine 0.4. Glucose 288. Magnesium 1.5 phosphorus 2.2 and calcium 8.0. No chest x-ray today. The patient is seen today 06/21/2023 in follow-up on the regular medical floor. She is awake and alert in no acute distress. Resting comfortably in bed. Maintaining good O2 saturations in the 90s on room air. Continues to work with the incentive spirometer. Normal saline at 75 once per hour. She is being nourished with TPN at 85 ML's per hour. Sodium 136. Potassium 4.0. Bicarb 26. BUN 13. Creatinine 0.40. Glucose 321. AST 30. ALT 35. Albumin 2.7. She is continued on heparin for DVT prophylaxis. Abdominal x-ray revealed bowel gas pattern likely reflective of ileus. No gross free air detected. NG tube was removed on 06/19/2023. The patient is seen today 06/22/2023 in follow-up on the regular medical floor. She is resting quite comfortably in bed. Awake and alert in no acute distress. She is maintaining good O2 saturations in the 90s on room air. She remains on TPN at 85 ML's per hour. Normal saline at 75 ML's per hour. She is thirsty. She is still on ice chips only. Sodium 136. Potassium 4.0. Bicarb 23. BUN 9. Creatinine 0.44. Magnesium 1.5. Glucose 253. Heparin for DVT prophylaxis. on 06/23/2023, the patient is being seen for a follow-up. The patient is on TPN for nutritional support. The patient was noted to have increased swelling in the left upper extremity and the patient was given an ultrasound of the left upper extremity and the patient was found to have a positive DVT in the left axillary and basilic and cephalic veins. Note that the patient has a PICC line in left upper extremity. The arm is quite swollen. The patient is sitting TPN for nutritional support of the PICC line. At the same time, the patient undergone a previous breast surgery and lymph node dissection on the right and the patient is unable to have IV access in the right upper extremity. The patient is afebrile. The patient is hemodynamically stable. Pulse ox on room air is 94%. She is alert and oriented 3. She is gradually increasing her oral intake. She had a bowel movement yesterday, none today. No nausea. No emesis in no fever. No other new complaints. The abdominal wound is dry clean and intact. No abdominal distention. No altered mentation. No shortness of breath or pleurisy or hemoptysis. The lab work from today shows a white cell count of 8.7, hemoglobin was 12.5 and a platelet count of 465 and the sodium level is at 136, potassium of 4.3, BUN is at 30 with a creatinine of 0.4 and a glucose of 309. On 06/24/2023, the patient is still having some nausea and she was placed in to bowel rest. The PICC line was removed from the left upper extremity and the TPN is discontinued. She does have some residual swelling in the left upper extremity. No abdominal pain. No abdominal distention. She has positive bowel sounds. The recent echo that time 0.9 with a hemoglobin 12.9 and a platelet count of 540. Urine is a 50 with a creatinine of 0.8 and a sodium level is at 136. Triglyceride level was 422. She does have a DVT of the left upper extremity. She'll get a midline On 06/25/2023, the patient is on clear liquid diet. She is having bowel movements. No abdominal pain. No nausea or emesis. Her left upper extremity remains swollen and the patient was started on anticoagulation with Eliquis. The PICC line has been removed and the patient is a midline in the right upper extremity. She remains on room air oxygen. No significant respiratory distress for now. No nausea. No emesis. Sodium level is at 138, BUN is at 60 with a creatinine of 0.5 and a calcium level is at 8.3. On today's evaluation of 06/26/2023, the patient is progressively improving. There is improvement in her postoperative ileus. The patient is tolerating oral intake. Clinically stable and hemodynamically stable. The patient continues to have some swelling in the left upper extremity as stated earlier. No major respiratory distress. BUN is at 9 with a creatinine of 0.7 sodium levels of 138. She is restart enteral heparin restarted on her antihypertensive medication which includes Catapres, amlodipine, metoprolol and the patient is receiving IV Vasotec and his sodiums basis. For now, the patient is still on anticoagulation. On 06/27/2023, the patient is doing well. She is having bowel movements. She is ambulating. She is on room air oxygen. No respiratory distress. Left upper extremity swelling is also improving. Abdominal wound is dry clean and intact. The patient has no other new complaints otherwise for now. The patient has no issues with pain. She is completing a course of anticoagulation with Eliquis regarding her left upper extremity DVT. Home medications have been resumed. Labs from today shows the stone 6.5, he was sent 0.5 and a platelet count of 439. Sodium is at 138, potassium is at 4.4, BUN is at 4 with a creatinine of 0.6. The patient is on Vasotec as needed. The patient is taken to the 0.2 mg 3 times a day for blood pressure control. She is also on Norvasc 10 mg by mouth daily metoprolol 50 mg by mouth 3 times a day. No nausea. No emesis. On 06/28/2020, the patient is doing well. She is ambulating. She is stooling. She had several bowel movements yesterday. No respiratory distress. Blood sugar management is per medicine. The patient is currently on room air oxygen with a pulse ox of 98%. She is hemodynamically stable. The abdominal wound is dry clean and intact. Left upper external the swelling is also improving. Objective - Vital Signs Vital signs: Vital Signs Temp 98.6 F 06/28/23 07:23 Pulse 59 L 06/28/23 07:23 Resp 16 06/28/23 07:23 BP 158/62 06/28/23 07:23 Pulse Ox 98 06/28/23 07:23 FiO2 Intake & Output 06/27/23 06/28/23 06/28/23 18:59 06:59 18:59 Weight 86.9 kg Other: Voiding Method Toilet # Voids 3 1 - Labs CBC & Chem 7: 06/27/23 06:32 06/27/23 06:32 Labs: Abnormal Lab Results - Last 24 Hours (Table) 06/27/23 06/27/23 06/28/23 Range/Units 16:45 21:41 06:24 POC Glucose (mg/dL) 189 H 327 H 256 H (70-110) mg/dL 06/28/23 Range/Units 11:57 POC Glucose (mg/dL) 215 H (70-110) mg/dL Assessment and Plan Plan: Small bowel obstruction secondary to intra-abdominal adhesions. Status post exploratory laparotomy with extensive lysis of adhesions and partial omentectom y. Post operative day # 13, tolerating clear liquid diet and having bowel movements. Patient is currently tolerating diet Hypertension, stable, currently on a combination of metoprolol, amlodipine and clonidine. Left upper extremity DVT involving the axillary and basilic and cephalic veins confirmed by ultrasound Dopplers. no signs of any respiratory distress. The patient has significant swelling of the left upper extremity. The patient is currently on anticoagulants with Eliquis. History of CVA History of diabetes mellitus History of esophageal reflux disease Hyperlipidemia Hypertension Osteoarthritis History of breast cancer History of uterine cancer Plan: Clinically stable Adequate bowel movement activity Left upper extremity swelling is improving Advance diet Continue oral antihypertensive medications Continue anticoagulation with Eliquis, recommend a total of 4 weeks of anticoagulation. This was a catheter induced clotting of the left upper extremity. Keep the left upper extremity elevated Gradually advance diet as tolerated No significant nausea and the patient is stooling Stable and on room air
[2023-06-28 16:41] LABS: Glucose,Whole Blood 181 mg/dL (70-110)
[2023-06-28] MEDS: amLODIPine 10 MG TAB PO SCH (21:50)
[2023-06-28 23:15] LABS: Glucose,Whole Blood 264 mg/dL (70-110)
[2023-06-29 05:19] LABS: Glucose,Whole Blood 181 mg/dL (70-110)
[2023-06-29] MEDS: INSULIN REGULAR 100 UNIT/ML VIAL (IV) SQ SCH ×3 (05:42→16:53)
[2023-06-29] MEDS: glipiZIDE 5 MG TAB PO SCH (06:12)
[2023-06-29] MEDS: METOPROLOL TARTRATE 50 MG TAB PO SCH ×3 (08:15→21:08)
[2023-06-29] MEDS: PIOGLITAZONE 30 MG TAB PO SCH (08:15)
[2023-06-29] MEDS: lisinopriL 20 MG TAB PO SCH ×2 (08:15→21:05)
[2023-06-29] MEDS: levETIRAcetam 500 MG TAB PO SCH ×2 (08:15→21:05)
[2023-06-29] MEDS: carBAMazepine 300 MG CPMP.12HR PO SCH ×2 (08:15→21:05)
[2023-06-29] MEDS: cloNIDine HCL 0.2 MG TAB PO SCH ×3 (08:15→21:08)
[2023-06-29] MEDS: Apixaban Initiation Dose--VTE 5 MG TAB PO SCH ×2 (08:15→21:04)
[2023-06-29] MEDS: hydrALAZINE HCL 50 MG TAB PO SCH ×3 (08:15→21:08)
[2023-06-29] MEDS: SIMETHICONE 40 MG/0.6 ML DROPS 2,000 MG/30 ML BOTTLE PO SCH ×5 (08:16→21:12)
[2023-06-29 11:46] LABS: Glucose,Whole Blood 214 mg/dL (70-110)
--- NOTE | 2023-06-29 13:04 | P.PN ---
Subjective Progress Note Date: 06/29/23 Progress note Date of service 06/29/2023 Dictation by Patient seen and evaluated [id number] No bowel movement today yesterday she had watery diarrhea and we don't have clearance from the surgery He also did request from case picker twice the clearance on anticoagulation Eliquis 10 mg twice a day which was recommended and written by Dr. Pena pulmonary and critical care for DVT of the left upper arm, admitted to receive on perfect sense communication from the nurse stated that they have to have a prescription on 06/28/2023 at the evening time. Meanwhile there is no pharmacy in the hospital open and closed on the weekend to find out if the patient will receive this medication or not especially if she had DVT of the left upper extremities and this continuation of the pills may augment her problem. I did discuss it with the nurse today Marga and she stated there is no pharmacy today as well to give her or to check it out and the patient may need to stay tomorrow. I did discuss with her if her insurance refused to pay for it, we need to contact Dr. Pena for different anticoagulation for her left DVT. Patient will be tomorrow seen by case picker to investigate and the rectify this problem. And also we need clearance from the surgeon for discharge as patient did not have no bowel movement. Temperature 98.0 F oral Pulse rate 64. Beat per minute Respiratory rate 18/m nonlabored Blood pressure was 175/78 and a mean 110 prior to that her blood pressure was 138/76 with a mean 90 Oxygen saturation 96% on room air. HEENT negative Neck was supple Chest was clear Heart was regular sinus rhythm Abdomen positive bowel sounds still distended, no bowel movement she had lost night diarrhea. Extremities: Lower extremities no edema Upper extremities left side with a DVT and improved swelling, right side the peripheral line present stable Neurologically stable no seizure disorder. Assessment: We were plan to discharge her today however the obstacle with the no pharmacy to check her glucose if her insurance will pay for it to avoid discontinuation of the medication and the propagation of DVT and sudden discontinuation of medication Also clearance from the surgical group I reviewed her medication and hopefully tomorrow to be cleared by surgery, and also the solution of her medication that will be given to her and continuous matter the novel anticoagulant as mentioned above. If the insurance refused to pay for her medication the anticoagulant, then we need to contact Dr. Pena or who is covering him for alternative for anticoagulation. Blood pressure is elevated one time and patient stable otherwise Medication for blood glucose has been addressed. And medication return to baseline home medication. Objective - Vital Signs Vital signs: Vital Signs Temp 98.0 F 06/29/23 07:04 Pulse 64 06/29/23 07:04 Resp 18 06/29/23 07:04 BP 175/78 06/29/23 07:04 Pulse Ox 96 06/29/23 07:04 FiO2 Intake & Output 06/28/23 06/29/23 06/29/23 18:59 06:59 18:59 Weight 86.9 kg Other: # Voids 3 4 - Labs CBC & Chem 7: 06/27/23 06:32 06/27/23 06:32 Labs: Abnormal Lab Results - Last 24 Hours (Table) 06/28/23 06/28/23 06/29/23 Range/Units 16:39 20:12 05:18 POC Glucose (mg/dL) 181 H 264 H 181 H (70-110) mg/dL 06/29/23 Range/Units 11:45 POC Glucose (mg/dL) 214 H (70-110) mg/dL
--- NOTE | 2023-06-29 13:42 | P.PN ---
Subjective Progress Note Date: 06/29/23 This is a 68-year-old female seen today in the intensive care unit, room 257. The patient apparently was admitted to the hospital back on June 10 or abdominal pain. The patient was found have a small bowel obstruction. Today's postop day #1, status post exploratory laparotomy, extensive lysis of adhesions, and partial omentectomy. The surgery was done by Dr. Levi. Currently, the patient seemed be doing relatively well. She is on 3 L of oxygen. She's getting saline at 75 mL an hour. An NG tube in. A pain pump is available for her, in terms of pain control. We encourage her to do the incentive spirometry, every hour, and I notice, there is not one at the bedside, so I asked the nurse to order one. Laboratory data today includes a glucose of 142. From yesterday, white count was 7.7, hemoglobin 12.7, and platelet count was normal. Sodium 143, potassium 4.5, chlorides 109, CO2 19, anion gap 15, BUN 7, creatinine 0.59. Magnesium was 1.5. No recent chest x-ray. The patient is currently on Flagyl. Progress note dated 06/17/2023. 68-year-old female seen in consultation yesterday. She seen in room 257, intensive care unit. The patient is postoperative day #2, status post exploratory laparotomy, extensive lysis of adhesions, and partial omentectomy. The patient is currently on oxygen, at 2 L. An NG tube remains in place. She's getting saline at 75 mL an hour. She's doing reasonably well on her incentive spirometer. She is having an apparent reaction to chlorhexidine. I recommend some Benadryl. White count of 7.8, hemoglobin 11, hematocrit 33.6, and a normal platelet count. Sodium 142, potassium 3.8, chlorides 109, CO2 17, anion gap 16, BUN 6, and creatinine 0.46. Calcium is 8.1 with magnesium of 1.4. Progress note dated 06/18/2023. 68-year-old female seen in consultation 2 days ago. The patient still is in the intensive care unit, room 257. The patient has an NG tube in place, and is on room air. She is receiving saline at 75 mL an hour. Labs include a white count of 7, hemoglobin 11.4, hematocrit 34.4, and platelet count of 287,000. Sodium 140, potassium 3.2, chlorides 106, CO2 23, BUN 3, creatinine 0.43. Glucose 148. Calcium is 8. The patient does complain of abdominal tenderness. Progress note dated 06/19/2023. 68-year-old female seen in consultation 3 days ago. She seen today again in room 257. Patient still has the NG tube still in place. She's receiving saline at 75 mL an hour, and TPN at 30 mL an hour. The epidural pain catheter, has been removed. Sodium 137, potassium 3.2, chlorides 103, CO2 27, BUN 3, creatinine 0.42. Magnesium is 1.4. Phosphorus is 2.0. Chest x-ray from yesterday, shows no evidence of pleural effusion, pneumothorax, or focal consolidation. Progress note dated 06/20/2023. 68-year-old female seen in room 257. The NG tube has been removed. The patient's on room air. She is receiving saline at 75 mL an hour. She's getting TPN at 83 mL an hour. According to the nurse, she had an uneventful night. Labs today include a sodium 136, potassium 3.6, chlorides 102, CO2 26, BUN 4, creatinine 0.4. Glucose 288. Magnesium 1.5 phosphorus 2.2 and calcium 8.0. No chest x-ray today. The patient is seen today 06/21/2023 in follow-up on the regular medical floor. She is awake and alert in no acute distress. Resting comfortably in bed. Maintaining good O2 saturations in the 90s on room air. Continues to work with the incentive spirometer. Normal saline at 75 once per hour. She is being nourished with TPN at 85 ML's per hour. Sodium 136. Potassium 4.0. Bicarb 26. BUN 13. Creatinine 0.40. Glucose 321. AST 30. ALT 35. Albumin 2.7. She is continued on heparin for DVT prophylaxis. Abdominal x-ray revealed bowel gas pattern likely reflective of ileus. No gross free air detected. NG tube was removed on 06/19/2023. The patient is seen today 06/22/2023 in follow-up on the regular medical floor. She is resting quite comfortably in bed. Awake and alert in no acute distress. She is maintaining good O2 saturations in the 90s on room air. She remains on TPN at 85 ML's per hour. Normal saline at 75 ML's per hour. She is thirsty. She is still on ice chips only. Sodium 136. Potassium 4.0. Bicarb 23. BUN 9. Creatinine 0.44. Magnesium 1.5. Glucose 253. Heparin for DVT prophylaxis. on 06/23/2023, the patient is being seen for a follow-up. The patient is on TPN for nutritional support. The patient was noted to have increased swelling in the left upper extremity and the patient was given an ultrasound of the left upper extremity and the patient was found to have a positive DVT in the left axillary and basilic and cephalic veins. Note that the patient has a PICC line in left upper extremity. The arm is quite swollen. The patient is sitting TPN for nutritional support of the PICC line. At the same time, the patient undergone a previous breast surgery and lymph node dissection on the right and the patient is unable to have IV access in the right upper extremity. The patient is afebrile. The patient is hemodynamically stable. Pulse ox on room air is 94%. She is alert and oriented 3. She is gradually increasing her oral intake. She had a bowel movement yesterday, none today. No nausea. No emesis in no fever. No other new complaints. The abdominal wound is dry clean and intact. No abdominal distention. No altered mentation. No shortness of breath or pleurisy or hemoptysis. The lab work from today shows a white cell count of 8.7, hemoglobin was 12.5 and a platelet count of 465 and the sodium level is at 136, potassium of 4.3, BUN is at 30 with a creatinine of 0.4 and a glucose of 309. On 06/24/2023, the patient is still having some nausea and she was placed in to bowel rest. The PICC line was removed from the left upper extremity and the TPN is discontinued. She does have some residual swelling in the left upper extremity. No abdominal pain. No abdominal distention. She has positive bowel sounds. The recent echo that time 0.9 with a hemoglobin 12.9 and a platelet count of 540. Urine is a 50 with a creatinine of 0.8 and a sodium level is at 136. Triglyceride level was 422. She does have a DVT of the left upper extremity. She'll get a midline On 06/25/2023, the patient is on clear liquid diet. She is having bowel movements. No abdominal pain. No nausea or emesis. Her left upper extremity remains swollen and the patient was started on anticoagulation with Eliquis. The PICC line has been removed and the patient is a midline in the right upper extremity. She remains on room air oxygen. No significant respiratory distress for now. No nausea. No emesis. Sodium level is at 138, BUN is at 60 with a creatinine of 0.5 and a calcium level is at 8.3. On today's evaluation of 06/26/2023, the patient is progressively improving. There is improvement in her postoperative ileus. The patient is tolerating oral intake. Clinically stable and hemodynamically stable. The patient continues to have some swelling in the left upper extremity as stated earlier. No major respiratory distress. BUN is at 9 with a creatinine of 0.7 sodium levels of 138. She is restart enteral heparin restarted on her antihypertensive medication which includes Catapres, amlodipine, metoprolol and the patient is receiving IV Vasotec and his sodiums basis. For now, the patient is still on anticoagulation. On 06/27/2023, the patient is doing well. She is having bowel movements. She is ambulating. She is on room air oxygen. No respiratory distress. Left upper extremity swelling is also improving. Abdominal wound is dry clean and intact. The patient has no other new complaints otherwise for now. The patient has no issues with pain. She is completing a course of anticoagulation with Eliquis regarding her left upper extremity DVT. Home medications have been resumed. Labs from today shows the stone 6.5, he was sent 0.5 and a platelet count of 439. Sodium is at 138, potassium is at 4.4, BUN is at 4 with a creatinine of 0.6. The patient is on Vasotec as needed. The patient is taken to the 0.2 mg 3 times a day for blood pressure control. She is also on Norvasc 10 mg by mouth daily metoprolol 50 mg by mouth 3 times a day. No nausea. No emesis. On 06/28/2020, the patient is doing well. She is ambulating. She is stooling. She had several bowel movements yesterday. No respiratory distress. Blood sugar management is per medicine. The patient is currently on room air oxygen with a pulse ox of 98%. She is hemodynamically stable. The abdominal wound is dry clean and intact. Left upper external the swelling is also improving. On today's evaluation of 06/29/2023, the patient was having some liquid bowel movements. In terms of her anticoagulation, recommending month on anticoagulation with Eliquis. The patient will not need extensive or extended treatment as the patient's clotting was related to a catheter and she did have significant amount of swelling in the left upper extremity. Otherwise, she is improving. She has a peripheral line in the right upper extremity. We'll work with pharmacy patient 3 month of anticoagulation to be done on outpatient basis. Objective - Vital Signs Vital signs: Vital Signs Temp 98.0 F 06/29/23 07:04 Pulse 64 06/29/23 07:04 Resp 18 06/29/23 07:04 BP 175/78 06/29/23 07:04 Pulse Ox 96 06/29/23 07:04 FiO2 Intake & Output 06/28/23 06/29/23 06/29/23 18:59 06:59 18:59 Weight 86.9 kg Other: # Voids 3 4 - Labs CBC & Chem 7: 06/27/23 06:32 06/27/23 06:32 Labs: Abnormal Lab Results - Last 24 Hours (Table) 06/28/23 06/28/23 06/29/23 Range/Units 16:39 20:12 05:18 POC Glucose (mg/dL) 181 H 264 H 181 H (70-110) mg/dL 06/29/23 Range/Units 11:45 POC Glucose (mg/dL) 214 H (70-110) mg/dL Assessment and Plan Plan: Small bowel obstruction secondary to intra-abdominal adhesions. Status post exploratory laparotomy with extensive lysis of adhesions and partial omentectomy. Post operative day # 13, tolerating clear liquid diet and having bowel movements. Patient is currently tolerating diet Hypertension, stable, currently on a combination of metoprolol, amlodipine and clonidine. Catheter related -Left upper extremity DVT involving the axillary and basilic and cephalic veins confirmed by ultrasound Dopplers. no signs of any respiratory distress. The patient has significant swelling of the left upper extremity. The patient is currently on anticoagulants with Eliquis. History of CVA History of diabetes mellitus History of esophageal reflux disease Hyperlipidemia Hypertension Osteoarthritis History of breast cancer History of uterine cancer Plan: Patient has a catheter related DVT and the patient needs to be on anticoagulation for total of 3 months. This can be either metformin Eliquis and if the medication is not covered, The Patient Low Molecular Weight Heparin and do bridging with warfarin for the next 3 months. I prefer to treat the patient in the cognition without liquids for the next 3 months due to the ease and ineffectiveness of treatment. Clinically stable Adequate bowel movement activity Left upper extremity swelling is improving Advance diet Continue oral antihypertensive medications Continue anticoagulation with Eliquis, recommend a total of 12 weeks of anticoagulation. This was a catheter induced clotting of the left upper extremity. Keep the left upper extremity elevated Gradually advance diet as tolerated No significant nausea and the patient is stooling Stable and on room air
[2023-06-29] MEDS: glipiZIDE 10 MG TAB PO SCH (16:51)
[2023-06-29 16:53] LABS: Glucose,Whole Blood 191 mg/dL (70-110)
[2023-06-29 20:19] LABS: Glucose,Whole Blood 231 mg/dL (70-110)
[2023-06-29] MEDS: amLODIPine 10 MG TAB PO SCH (21:05)
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
[2023-06-30 06:23] LABS: Glucose,Whole Blood 201 mg/dL (70-110)
[2023-06-30 07:53] VITALS: RESP 18
[2023-06-30] MEDS ORDERED: CYANOCOBALAMIN 500 MCG TAB PO SCH (09:00)
[2023-06-30] MEDS ORDERED: PYRIDOXINE 50 MG TAB PO SCH (09:00)
[2023-06-30] MEDS: INSULIN REGULAR 100 UNIT/ML VIAL (IV) SQ SCH ×3 (09:36→16:53)
[2023-06-30] MEDS: PIOGLITAZONE 30 MG TAB PO SCH (10:07)
[2023-06-30] MEDS: levETIRAcetam 500 MG TAB PO SCH (10:07)
[2023-06-30] MEDS: Apixaban Initiation Dose--VTE 5 MG TAB PO SCH (10:07)
[2023-06-30] MEDS: METOPROLOL TARTRATE 50 MG TAB PO SCH ×2 (10:07→16:51)
[2023-06-30] MEDS: glipiZIDE 10 MG TAB PO SCH ×2 (10:07→16:51)
[2023-06-30] MEDS: lisinopriL 20 MG TAB PO SCH (10:07)
[2023-06-30] MEDS: hydrALAZINE HCL 50 MG TAB PO SCH ×2 (10:07→16:51)
[2023-06-30] MEDS: SIMETHICONE 40 MG/0.6 ML DROPS 2,000 MG/30 ML BOTTLE PO SCH ×3 (10:08→16:53)
[2023-06-30] MEDS: carBAMazepine 300 MG CPMP.12HR PO SCH (10:08)
[2023-06-30] MEDS: cloNIDine HCL 0.2 MG TAB PO SCH ×2 (10:08→16:51)
[2023-06-30] MEDS ORDERED: polyethylene glycoL 3350 17 GM POWD.PACK PO SCH (11:30)
[2023-06-30 11:37] LABS: Glucose,Whole Blood 278 mg/dL (70-110)
--- NOTE | 2023-06-30 11:46 | P.PN ---
Subjective Progress Note Date: 06/30/23 CHIEF COMPLAINT: SBO HISTORY OF PRESENT ILLNESS: Patient is postop day #15 status post exploratory laparotomy with extensive lysis of adhesions and partial omentectomy. Patient denies abdominal pain. Denies any nausea or vomiting. Last BM was diarrhea on Friday. Afebrile. PHYSICAL EXAM: VITAL SIGNS: Reviewed. GENERAL: Well-developed in no acute distress. ABDOMEN: Soft. Nondistended. nontender. Incisional dressing clean dry and intact. NEUROLOGIC: Alert and oriented. Cranial nerves II through XII grossly intact. ASSESSMENT: 1. Small bowel obstruction secondary to intra-abdominal adhesions. Status post exploratory laparotomy with extensive lysis of adhesions and partial omentectomy 2. Postoperative ileus 3. New DVT left arm PLAN: -Continue low fiber -Add MiraLAX for constipation -Patient can be discharged from surgical standpoint when medically cleared Physician Picking Supervisor note has been reviewed by physician. Signing provider agrees with the documented findings, assessment, and plan of care. I have personally seen and examined the patient, reviewed the [employer] /PAs history, exam and MDM and agree with the assessment and plan as written. Based on total visit time, I have performed more than 50% of the visit. As above: Patient doing well today. Tolerating diet. Last bowel movement 3 days ago. Will add MiraLAX. Possible discharge per medicine. Objective - Vital Signs Vital signs: Vital Signs Temp 98.3 F 06/30/23 07:09 Pulse 60 06/30/23 07:09 Resp 18 06/30/23 07:09 BP 164/84 06/30/23 07:09 Pulse Ox 97 06/30/23 07:09 FiO2 Intake & Output 06/29/23 06/30/23 06/30/23 18:59 06:59 18:59 Intake Total 400 Balance 400 Intake: Oral 400 Other: Voiding Method Toilet # Voids 3 - Labs CBC & Chem 7: 06/27/23 06:32 06/27/23 06:32 Labs: Abnormal Lab Results - Last 24 Hours (Table) 06/29/23 06/29/23 06/29/23 Range/Units 11:45 16:51 20:18 POC Glucose (mg/dL) 214 H 191 H 231 H (70-110) mg/dL 06/30/23 Range/Units 06:19 POC Glucose (mg/dL) 201 H (70-110) mg/dL
--- NOTE | 2023-06-30 12:24 | P.PN ---
Subjective Progress Note Date: 06/30/23 The patient is seen today 06/30/2023 in follow-up on the regular medical floor. She is awake and alert in no acute distress. She is currently sitting up in a chair at the bedside. Awake and alert in no acute distress. This is postoperative day #15 following a obstruction requiring exploratory laparotomy with extensive lysis of adhesions and partial omentectomy. She had also developed a postoperative ileus. She has been initiated on MiraLAX. She is tolerating a low fiber diet. Her edema from the DVT in the left upper extremity is improving. She is currently on Eliquis. Blood glucose 278. Objective - Vital Signs Vital signs: Vital Signs Temp 98.3 F 06/30/23 07:09 Pulse 60 06/30/23 07:09 Resp 18 06/30/23 07:09 BP 164/84 06/30/23 07:09 Pulse Ox 97 06/30/23 07:09 FiO2 Intake & Output 06/29/23 06/30/23 06/30/23 18:59 06:59 18:59 Intake Total 400 Balance 400 Intake: Oral 400 Other: Voiding Method Toilet # Voids 3 - Exam GENERAL EXAM: Alert, pleasant 68-year-old female, on room air, up in a chair, comfortable in no apparent distress. HEAD: Normocephalic. EYES: Normal reaction of pupils, equal size. NOSE: Clear with pink turbinates. THROAT: No erythema or exudates. NECK: No masses, no JVD. CHEST: No chest wall deformity. LUNGS: Equal air entry with no crackles, wheeze, rhonchi or dullness. CVS: S1 and S2 normal with no audible murmur, regular rhythm. ABDOMEN: Mild tenderness at incision site. Dressing dry and intact. Abdomen soft. SPINE: No scoliosis or deformity SKIN: No rashes CENTRAL NERVOUS SYSTEM: No focal deficits, tone is normal in all 4 extremities. EXTREMITIES: There is 1+ edema the left upper extremity. No clubbing, no cyanosis. Peripheral pulses are intact. - Labs CBC & Chem 7: 06/27/23 06:32 06/27/23 06:32 Labs: Abnormal Lab Results - Last 24 Hours (Table) 06/29/23 06/29/23 06/30/23 Range/Units 16:51 20:18 06:19 POC Glucose (mg/dL) 191 H 231 H 201 H (70-110) mg/dL 06/30/23 Range/Units 11:35 POC Glucose (mg/dL) 278 H (70-110) mg/dL Assessment and Plan Assessment: Small bowel obstruction secondary to intra-abdominal adhesions. Status post exploratory laparotomy with extensive lysis of adhesions and partial omentectomy. Post operative day #15 Postoperative hypertension, treated with pain pump, clonidine patch, hydralazine. Improved Catheter related -left upper extremity DVT involving the axillary and basilic and cephalic veins confirmed by ultrasound Dopplers. The patient has significant swelling of the left upper extremity. The patient is currently on Eliquis. History of CVA History of diabetes mellitus History of esophageal reflux disease Hyperlipidemia Hypertension Osteoarthritis History of breast cancer History of uterine cancer Plan: The patient was seen and evaluated Medications and labs reviewed Stable and on room air Tolerating a low fiber diet Initiated on MiraLAX Anticoagulated with Eliquis Increase her activity as tolerated This patient was seen independently by the nurse practitioner I have personally seen and examined the patient, performed the documentation and the assessment and plan as written. Number of minutes spent on the visit: 22.
[2023-06-30 16:41] VITALS: BP 145/72; PULSE 69; TEMP 98.5
[2023-06-30 16:54] LABS: Glucose,Whole Blood 185 mg/dL (70-110)
--- NOTE | 2023-06-30 17:58 | P.DS ---
Providers Date of admission: 06/10/23 12:36 Expected date of discharge: 06/30/23 Attending physician: Flynn Siegel Consults: 06/10/23 12:10 Consult Physician Routine Consulting Provider: Otilio Levi Consult Reason/Comments: enteritis/partial small bowel obstruction Do you want consulting provider notified?: Already Contacted 06/11/23 10:09 Consult Physician Stat Consulting Provider: Kyaw Carballo Consult Reason/Comments: hx sezier disorder aval and tx Do you want consulting provider notified?: Yes 06/16/23 10:28 Consult Physician Routine Consulting Provider: Neptali Pena Consult Reason/Comments: ICU mangagement Do you want consulting provider notified?: Yes Primary care physician: Flynn Siegel Discharge summary Date of service 06/30/2023. Admission on 06/10/2023 Discharge 06/30/2023 Final diagnosis: #1 acute bowel obstruction secondary to adhesion extensive #2 status post exploratory laparotomy by Dr. Levi #3 post operative ileus prolonged #4 diabetes mellitus type 2 insulin-dependent with hyperglycemia controlled on discharge #5 per resistant hypertension currently controlled on discharge #6 history of COPD #7 protein calorie deficiency treated with TPN for a short period #8 history of bilateral breast mastectomy for cancer of breast #9 multiple abdominal surgery resulted in severe adhesions prior to this admission. #10 persistent nausea and vomiting pre-and post operative. #11 left PICC line resulted in DVT of the left upper extremities with significant swelling of the left arm. Consultation: #1 Dr. Hart surgeon #2 pulmonary and critical care. #3 neurology consultation for seizure disorder. I Dr. Kyaw Carballo and Renata torres Presentation to the ER: Nausea and vomiting was persistent with abdominal distention and the CAT scan was indicating small bowel obstruction. Hospital course: Complicated Started with weighted and observe to give the chance for resolution over the bowel obstruction, which resulted of no treatment Subsequently Dr. Hart took her to the operative room and found severe adhesions and he had to do the resection of the omentum as well and the lysis of adhesion. Patient subsequently had abdominal distention and ileus and no bowel movement which was expected after 3 days but has been prolonged and found that his prealbumin was low started on TPN with the recommendation by the dietitian which done by Dr. Hart. Subsequently patient found that her PICC line in the left upper arm was swollen arm edematous, I did send for ultrasound of the left upper extremities and indicated DVT with elevated d-dimer. Postoperative patient stayed in the ICU for a few days subsequently the local [place] truck driver Dr. Carballo transferred her to the fourth floor patient has been getting her medication change it to be IV with the persistent hypertension and hyperglycemia covered with insulin as well but no nothing by mouth. With the DVT of the left upper extremities PICC line was removed and started on anticoagulant. Dr. Pena Patient has recently started to have a bowel sounds and still was distended no BMs until currently started to have a BM and no nausea no vomiting able to tolerate her medication orally which initially could not do that. On the DVT we have Dr. Pena started her on requests Eliquis 10 mg twice a day and we had severe difficulties from the insurance to continue these medication for that time recommended by Dr. Pena 12 weeks Today pulmonary did see patient and the PDA suggested VIPTALON found also that insurance.paying for it as well as the and expenses from the patient pocket in the [employer] for the 12 weeks will be $300 and from the point of Eliquis triple that amount. The [facility] pharmacy in [facility] outpatient Patient could not afford that Hospital able to give her 1 months. For treatment with the prescription has to be reorganized as the pharmacy stated to be eliquis 10 mg twice a day for 7 days followed by 5 mg twice a day for the rest of the months and the [facility] pharmacy agreed upon and will give her these amount With the difficulties of her insurance to pay we are looking for before the end of the months may able to switch her to Coumadin therapy as outpatient for the rest of the. And then the repeat ultrasound of the left upper extremity subsequent. Patient currently conscious alert oriented stable general condition. Her vital signs stable and blood pressure controlled as well as diabetes is controlled with the current treatment which she had at home. Exam on discharge: Conscious alert oriented 3 Head was normocephalic and atraumatic pupil was equal reactive conjunctiva was pink sclera nonicteric mild anemia postoperative Neck was supple no JVD no thyromegaly no lymphadenopathy trachea midline. Chest clear to auscultation and percussion no wheezes no rhonchi's Heart regular sinus rhythm no dysrhythmia Abdomen is soft she had bowel sound mildly distended and she had a bowel movement and urinated normally. Extremities no edema. Pulses Neurologically stable no seizure disorder during the period of hospitalization and she is on her medication. Assessment patient stable general condition to be discharged home today. Plan patient to follow with Dr. Hart, for removal of the stables as today he had removed some of them only Follow-up with Dr. Wood in 5-7 days. And to follow with her neurologist as outpatient. Patient Condition at Discharge: Stable Plan - Discharge Summary Discharge Rx Participant: Yes New Discharge Prescriptions: New Apixaban Initiation Dose--VTE [Eliquis Initiation Dosing for VTE Treatment] 10 mg PO BID #60 tab Continue levETIRAcetam [Keppra] 1,000 mg PO BID Atorvastatin [Lipitor] 20 mg PO HS Metoprolol Tartrate [Lopressor] 50 mg PO TID Enalapril [Vasotec] 20 mg PO BID amLODIPine [Norvasc] 10 mg PO HS glipiZIDE [Glucotrol] 10 mg PO BID Ergocalciferol [Vitamin D2 (1250 Mcg = 95084 Iu)] 1,250 mcg PO WE Insulin Regular, Human [Novolin R] See Protocol SQ AC-TID carBAMazepine [carBAMazepine ER] 600 mg PO BID PARoxetine [Paxil] 10 mg PO DAILY hydrALAZINE HCL [Apresoline] 50 mg PO TID cloNIDine HCL [Catapres] 0.2 mg PO TID Pioglitazone [Actos] 30 mg PO DAILY Fluticasone Nasal [place] [Flonase Nasal [place]] 1 - 2 spray EA NOSTRIL DAILY PRN PRN Reason: Allergy Symptoms Discontinued Dapagliflozin Propanediol [Farxiga] 10 mg PO DIRECTED Ibuprofen [Motrin] 800 mg PO Q8H PRN PRN Reason: back pain hydroCHLOROthiazide 25 mg PO DAILY Aspirin 325 mg PO HS Diphenoxylate HCl/Atropine [Lomotil 2.5-0.025 mg Tablet] 2 tab PO QID PRN PRN Reason: Diarrhea Discharge Medication List levETIRAcetam [Keppra] 1,000 mg PO BID 12/16/13 [History] Atorvastatin [Lipitor] 20 mg PO HS 04/21/14 [History] Enalapril [Vasotec] 20 mg PO BID 06/07/21 [History] Metoprolol Tartrate [Lopressor] 50 mg PO TID 06/07/21 [History] amLODIPine [Norvasc] 10 mg PO HS 06/07/21 [History] carBAMazepine [carBAMazepine ER] 600 mg PO BID 11/13/21 [History] PARoxetine [Paxil] 10 mg PO DAILY 01/18/22 [History] Ergocalciferol [Vitamin D2 (1250 Mcg = 81681 Iu)] 1,250 mcg PO WE 06/10/23 [History] Fluticasone Nasal [place] [Flonase Nasal [place]] 1 - 2 spray EA NOSTRIL DAILY PRN 06/10/23 [History] Insulin Regular, Human [Novolin R] See Protocol SQ AC-TID 06/10/23 [History] Pioglitazone [Actos] 30 mg PO DAILY 06/10/23 [History] cloNIDine HCL [Catapres] 0.2 mg PO TID 06/10/23 [History] glipiZIDE [Glucotrol] 10 mg PO BID 06/10/23 [History] hydrALAZINE HCL [Apresoline] 50 mg PO TID 06/10/23 [History] Apixaban Initiation Dose--VTE [Eliquis Initiation Dosing for VTE Treatment] 10 mg PO BID #60 tab 06/29/23 [Rx] Follow up Appointment(s)/Referral(s): Otilio Levi MD [Medical Doctor] - 1 Week [facility], [NON-STAFF] - 1-2 Days (will call to set up appointment, any questions please call agency. ) Flynn Siegel MD [Primary Care Provider] - 1-2 days
== END 2023-06-30 19:01 | disposition home or self-care (01) | DRG 336 ==
LOC: EC 06:19 → 5NMEDONC 12:36 → OBSVTOIN 12:36 → 5NMEDONC 17:59 → 3SCARD 06-11 16:01 → 2SICU 06-15 17:03 → 4SSUR 06-20 17:16
PROVIDERS: ADMIT Internal Medicine; ATTEND Internal Medicine
PROC: 3E0G76Z Introduction of Nutritional Substance into Upper GI, Via Natural or Artificial Opening (ICD-10-PCS; 2023-06-14)
PROC: 0DH67UZ Insertion of Feeding Device into Stomach, Via Natural or Artificial Opening (ICD-10-PCS; 2023-06-14)
PROC: 0DBU0ZZ Excision of Omentum, Open Approach (ICD-10-PCS; 2023-06-15)
PROC: 0DNW0ZZ Release Peritoneum, Open Approach (ICD-10-PCS; principal; 2023-06-15 11:30)
PROC: 02HV33Z Insertion of Infusion Device into Superior Vena Cava, Percutaneous Approach (ICD-10-PCS; 2023-06-18)
PROC: 05HB33Z Insertion of Infusion Device into Right Basilic Vein, Percutaneous Approach (ICD-10-PCS; 2023-06-24)
DX: K56.51 Intestinal adhesions [bands], with partial obstruction (principal); I47.10 Supraventricular tachycardia, unspecified; I82.A12 Acute embolism and thrombosis of left axillary vein; I82.622 Acute embolism and thrombosis of deep veins of left upper extremity; T82.868A Thrombosis due to vascular prosthetic devices, implants and grafts, initial encounter; K56.7 Ileus, unspecified; I1A.0 Resistant hypertension; K21.9 Gastro-esophageal reflux disease without esophagitis; Z86.16 Personal history of COVID-19; Z85.3 Personal history of malignant neoplasm of breast; Z85.42 Personal history of malignant neoplasm of other parts of uterus; Z85.43 Personal history of malignant neoplasm of ovary; Z85.038 Personal history of other malignant neoplasm of large intestine; D64.9 Anemia, unspecified; E78.5 Hyperlipidemia, unspecified; E83.42 Hypomagnesemia; E87.6 Hypokalemia; F32.A Depression, unspecified; F41.9 Anxiety disorder, unspecified; G40.409 Other generalized epilepsy and epileptic syndromes, not intractable, without status epilepticus; Z87.820 Personal history of traumatic brain injury; I11.9 Hypertensive heart disease without heart failure; G93.89 Other specified disorders of brain; E11.65 Type 2 diabetes mellitus with hyperglycemia; Z79.4 Long term (current) use of insulin; Z79.85 Long-term (current) use of injectable non-insulin antidiabetic drugs; Z79.84 Long term (current) use of oral hypoglycemic drugs; H81.09 Meniere's disease, unspecified ear; I08.1 Rheumatic disorders of both mitral and tricuspid valves; K08.409 Partial loss of teeth, unspecified cause, unspecified class; Z90.49 Acquired absence of other specified parts of digestive tract; J44.9 Chronic obstructive pulmonary disease, unspecified; Z71.3 Dietary counseling and surveillance; M19.90 Unspecified osteoarthritis, unspecified site; I97.3 Postprocedural hypertension; K29.70 Gastritis, unspecified, without bleeding; M16.12 Unilateral primary osteoarthritis, left hip; Z96.652 Presence of left artificial knee joint; Z79.82 Long term (current) use of aspirin; Z79.899 Other long term (current) drug therapy; Z88.8 Allergy status to other drugs, medicaments and biological substances; Z86.73 Personal history of transient ischemic attack (TIA), and cerebral infarction without residual deficits; Z86.718 Personal history of other venous thrombosis and embolism; Z85.41 Personal history of malignant neoplasm of cervix uteri; Z83.3 Family history of diabetes mellitus; Z79.01 Long term (current) use of anticoagulants; Z87.828 Personal history of other (healed) physical injury and trauma; Z90.13 Acquired absence of bilateral breasts and nipples; Z90.710 Acquired absence of both cervix and uterus
CPT/HCPCS: 36410; 36415; 36573; 71045; 74018; 74019; 74021; 74176; 74250; 74270; 76937; 80048; 80053; 80156; 80177; 81003; 82150; 82330; 82607; 82746; 83605; 83690; 83735; 83921; 84100; 84132; 84134; 84207; 84478; 85025; 85027; 85379; 85610; 85730; 88305; 95816; 96361; 96374; 96375; 96376; 99285

== ENCOUNTER → 2023-08-19 | Outpatient (CLI) | payer MEDICARE, BC ==
[2023-08-19 08:02] LABS: Basophils % (A) 0 %; Eosinophils # (A) 0.2 k/uL (0-0.7); Eosinophils % (A) 2 %; HCT 39.2 % (34.0-46.0); HGB 13.9 gm/dL (11.4-16.0); Lymphocytes # (A) 2.4 k/uL (1.0-4.8); Lymphocytes % (A) 39 %; MCH 31.4 pg (25.0-35.0); MCHC 35.5 g/dL (31.0-37.0); MCV 88.3 fL (80.0-100.0); Monocytes # (A) 0.4 k/uL (0-1.0); Monocytes % (A) 6 %; Neutrophils % (A) 50 %; Platelet Count 309 k/uL (150-450); RBC 4.44 m/uL (3.80-5.40); RDW 13.6 % (11.5-15.5)
[2023-08-19 11:14] LABS: ALT 12 U/L (8-44); AST 11 U/L (13-35); Albumin 4.4 g/dL (3.8-4.9); Albumin/Globulin Ratio 1.83 Ratio (1.60-3.17); Alkaline Phosphatase 150 U/L (41-126); BUN/Creat Ratio 25.14 Ratio (12.00-20.00); Blood Urea Nitrogen 17.6 mg/dL (9.0-27.0); Calcium 9.2 mg/dL (8.7-10.3); Carbon Dioxide 23.4 mmol/L (21.6-31.8); Chloride 101 mmol/L (96-109); Chol/HDL Ratio 3.48 Ratio; Ferritin 49.3 ng/mL (10.0-291.0); Globulin 2.4 g/dL (1.6-3.3); Glucose 190 mg/dL (70-110); Iron 78 UG/DL (50-170); LDL Cholesterol,Calculated 92.8 mg/dL (0.0-131.0); Potassium 4.4 mmol/L (3.5-5.5); Sodium 138 mmol/L (135-145); Total Bilirubin 0.2 mg/dL (0.3-1.2); Total Iron Binding Capacity 353 UG/DL (228-460); Total Protein 6.8 g/dL (6.2-8.2)
== END | disposition home or self-care (01) ==
LOC: LABWHC1 06:51
PROVIDERS: ATTEND Internal Medicine
DX: I10 Essential (primary) hypertension (principal); E78.2 Mixed hyperlipidemia; D64.9 Anemia, unspecified; G90.512 Complex regional pain syndrome I of left upper limb; I82.622 Acute embolism and thrombosis of deep veins of left upper extremity
CPT/HCPCS: 36415; 80053; 80061; 82728; 83540; 83550; 85025; 85379

== ENCOUNTER → 2023-08-25 | Outpatient (CLI) | payer MEDICARE, BC ==
--- NOTE | 2023-08-25 14:15 | US ---
EXAMINATION TYPE: US venous doppler duplex UE LT DATE OF EXAM: 08/25/2023 COMPARISON: US 06/23/2023 CLINICAL INDICATION: Female, 68 years old with history of I82.622 ACUTE EMBOLISM AND THROMBOSIS OF DE EP VEIN; Left Axilla, Brachial, and cephalic veins. PICC line removed end of june; Patient on [facility] SIDE PERFORMED: Left TECHNIQUE: Grayscale, color doppler, spectral doppler imaging performed of the deep veins of the lef t upper extremity. Right Arm: NA Left Arm: There is normal flow, compressibility and vascular waveforms. Negative for DVT; no remnan ts of previous DVT or SVT seen IMPRESSION: No evidence for DVT within the left upper extremity. Interval clearance of previously seen clot withi n the cephalic and basilic veins.
== END | disposition home or self-care (01) ==
LOC: RADUSWWP 13:30
PROVIDERS: ATTEND Internal Medicine
DX: I82.622 Acute embolism and thrombosis of deep veins of left upper extremity (principal)

== ENCOUNTER 2023-08-26 14:17 | Emergency (ER) | payer MEDICARE, BC ==
--- NOTE | 2023-08-26 14:37 | ED ---
General Adult HPI - General Source: patient, RN notes reviewed Mode of arrival: ambulatory Limitations: no limitations <Tova Guerra - Last Filed: 08/26/23 14:39> - General Source: RN notes reviewed, old records reviewed Mode of arrival: ambulatory Limitations: no limitations - History of Present Illness -: days(s) Location: abdomen Radiation: abdomen Severity scale (1-10): 7 Quality: sharp Consistency: constant Improves with: none Worsens with: none, immobilization Treatments Prior to Arrival: none <Devendra Alvarado - Last Filed: 09/01/23 16:48> - General Chief complaint: Abdominal Pain Stated complaint: Abd Pain-Post surgery area Time Seen by Provider: 08/26/23 14:36 - History of Present Illness Initial comments: 68 year old female presents to the emergency department for evaluation of left lower abdominal pain x1 week. She states it is worse today after walking through [employer]. Denies fever, chills. (Tova Guerra) This is a 68-year-old female to the ER today for evaluation of severe abdominal pain 1 week occurred after going through her going for a walk today. Patient does have recent abdominal surgery. No fevers mild nausea no vomiting no diarrhea (Devendra Alvarado) - Related Data Home Medications Medication Instructions Recorded Confirmed levETIRAcetam [Keppra] 1,000 mg PO BID 12/16/13 08/26/23 Atorvastatin [Lipitor] 20 mg PO HS 04/21/14 08/26/23 Enalapril [Vasotec] 20 mg PO BID 06/07/21 08/26/23 Metoprolol Tartrate [Lopressor] 50 mg PO TID 06/07/21 08/26/23 amLODIPine [Norvasc] 10 mg PO HS 06/07/21 08/26/23 carBAMazepine [carBAMazepine ER] 600 mg PO BID 11/13/21 08/26/23 PARoxetine [Paxil] 10 mg PO DAILY 01/18/22 08/26/23 Ergocalciferol [Vitamin D2 (1250 1,250 mcg PO MO 06/10/23 08/26/23 Mcg = 58787 Iu)] Insulin Regular, Human [NovoLIN R] See Protocol SQ AC-TID 06/10/23 08/26/23 Pioglitazone [Actos] 30 mg PO DAILY 06/10/23 08/26/23 cloNIDine HCL [Catapres] 0.2 mg PO TID 06/10/23 08/26/23 glipiZIDE [Glucotrol] 10 mg PO BID 06/10/23 08/26/23 hydrALAZINE HCL [Apresoline] 50 mg PO TID 06/10/23 08/26/23 Apixaban [Eliquis] 5 mg PO BID 08/26/23 08/26/23 Docusate [Colace] 100 mg PO DAILY PRN 08/26/23 08/26/23 Allergies Allergy/AdvReac Type Severity Reaction Status Date / Time chlorhexidine Allergy Itching Verified 08/26/23 17:08 Mushroom Allergy Itching Verified 08/26/23 17:08 metformin AdvReac Nausea & Verified 08/27/23 09:25 Vomiting Review of Systems ROS Other: All systems not noted in ROS Statement are negative. <Tova Guerra - Last Filed: 08/26/23 14:39> ROS Other: All systems not noted in ROS Statement are negative. <Devendra Alvarado - Last Filed: 09/01/23 16:48> ROS Statement: Those systems with pertinent positive or pertinent negative responses have been documented in the HPI. Past Medical History Past Medical History: Cancer, CVA/TIA, Diabetes Mellitus, GERD/Reflux, Hyperlipidemia, Hypertension, Osteoarthritis (OA), Pneumonia, Seizure Disorder Additional Past Medical History / Comment(s): breast/colon/ovarian,uterine CA, no bp in rt arm. told she had a stroke 03/2014 "blood clot in back of head". hx of head injury 3rd grade, pt states she has "slow thinking process"and seizures started after injury. -last seizure couple years ago, hx back pain, brain aneurysm 2007, menieres disease History of Any Multi-Drug Resistant Organisms: None Reported Past Surgical History: Adenoidectomy, Appendectomy, Bladder Surgery, Bowel Resection, Breast Surgery, Section, Cholecystectomy, Hernia Repair, Hysterectomy, Joint Replacement, Tonsillectomy Additional Past Surgical History / Comment(s): manpreet. mastectomy , manpreet BREAST BX, MANPREET CATARACT SX, BLADDER SUSPENSION, bowel resection x2 d/t ca, left total knee repl. Past Anesthesia/Blood Transfusion Reactions: Postoperative Nausea & Vomiting (PONV) Past Psychological History: Anxiety, Depression Smoking Status: Never smoker Past Alcohol Use History: None Reported Past Drug Use History: None Reported - Past Family History Mother Family Medical History: Cancer Father Family Medical History: Cancer <Tova Guerra - Last Filed: 08/26/23 14:39> General Exam Limitations: no limitations <Tova Guerra - Last Filed: 08/26/23 14:39> General appearance: alert, in no apparent distress, anxious Head exam: Present: atraumatic, normocephalic, normal inspection Eye exam: Present: normal appearance, PERRL, EOMI. Absent: scleral icterus, conjunctival injection, periorbital swelling ENT exam: Present: normal exam, mucous membranes moist Neck exam: Present: normal inspection. Absent: tenderness, meningismus, lymphadenopathy Respiratory exam: Present: normal lung sounds bilaterally. Absent: respiratory distress, wheezes, rales, rhonchi, stridor Cardiovascular Exam: Present: regular rate, normal rhythm, normal heart sounds. Absent: systolic murmur, diastolic murmur, rubs, gallop, clicks GI/Abdominal exam: Present: soft, normal bowel sounds. Absent: distended, tenderness, guarding, rebound, rigid Extremities exam: Present: normal inspection, full ROM, normal capillary refill. Absent: tenderness, pedal edema, joint swelling, calf tenderness Back exam: Present: normal inspection Neurological exam: Present: alert, oriented X3, CN II-XII intact Psychiatric exam: Present: normal affect, normal mood Skin exam: Present: warm, dry, intact, normal color. Absent: rash <Devendra Alvarado - Last Filed: 09/01/23 16:48> Course <Devendra Alvarado - Last Filed: 09/01/23 16:48> Vital Signs 08/26/23 08/26/23 14:31 18:54 Temperature 98.8 F 98.9 F Pulse Rate 69 79 Respiratory 18 16 Rate Blood Pressure 188/70 170/83 O2 Sat by Pulse 98 97 Oximetry - Reevaluation(s) Reevaluation #1: Medical records reviewed (Devendra Alvarado) Reevaluation #2: Patient symptoms improved (Devendra Alvarado) Reevaluation #3: Informed results questions answered (Devendra Alvarado) Reevaluation #4: Was pt. sent in by a medical professional or institution (TONJA Ma, PARKING REGULATION ENFORCEMENT OFFICER, urgent care, hospital, or chcf...) When possible be specific @ -no Did you speak to anyone other than the patient for history (EMS, parent, family, police, friend...)? What history was obtained from this source @ -no Did you review nursing and triage notes (agree or disagree)? Why? @ -agree Are old charts reviewed (outside hosp., previous admission, EMS record, old EKG, old radiological studies, urgent care reports/EKG's, chcf records)? Report findings @ -yes Differential Diagnosis (chest pain, altered mental status, abdominal pain women, abdominal pain men, vaginal bleeding, weakness, fever, dyspnea, syncope, headache, dizziness, GI bleed, back pain, seizure, CVA, palpatations, mental health, musculoskeletal)? @ -prior EKG interpreted by me (3pts min.). @ -no X-rays interpreted by me (1pt min.). @ -no CT interpreted by me (1pt min.). @ -yes negative for acute disease U/S interpreted by me (1pt. min.). @ -no What testing was considered but not performed or refused? (CT, X-rays, U/S, labs)? Why? @ -none What meds were considered but not given or refused? Why? @ -none Did you discuss the management of the patient with other professionals (professionals i.e. TONJA Ma, P[employer]ING [employer]ATION ENFORCEMENT OFFICER, lab, RT, psych nurse, director social service, endoscopy technican, teacher, event security officer, shoe caser)? Give summary @ -no Was smoking cessation discussed for >3mins.? @ -no Were there social determinants of health that impacted care today? How? (Homelessness, low income, unemployed, alcoholism, drug addiction, transportation, low edu. Level, literacy, decrease access to med. care, alf, rehab)? @ -none Was there de-escalation of care discussed even if they declined (Discuss DNR or withdrawal of care, Hospice)? DNR status @ -no What co-morbidities impacted this encounter? (DM, HTN, Smoking, COPD, CAD, Cancer, CVA, ARF, Chemo, Hep., AIDS, mental health diagnosis, sleep apnea, morbid obesity)? @ -none Was patient admitted / discharged? Hospital course, mention meds given and route, prescriptions, significant lab abnormalities, going to OR and other pertinent info. @ - 68 female to the emergency department for evaluation of recent abdominal surgery, patient is a postoperative pain well-controlled here in the ER, she can be discharged home Discharge Was critical care preformed (if so, how long)? @ -no Undiagnosed new problem with uncertain prognosis? @ -no Drug Therapy requiring intensive monitoring for toxicity (Heparin, Nitro, Insulin, Cardizem)? @ -no Were any procedures done? @ -no Diagnosis/symptom? @ -Postoperative pain Acute, or Chronic, or Acute on Chronic? @ -Acute Uncomplicated (without systemic symptoms) or Complicated (systemic symptoms)? @ -Complicated Side effects of treatment? @ -no Exacerbation, Progression, or Severe Exacerbation? @ -exacerbation Poses a threat to life or bodily function? How? (Chest pain, USA, NM, pneumonia, PE, COPD, DKA, ARF, appy, cholecystitis, CVA, Diverticulitis, Homicidal, Suicidal, threat to staff... and all critical care pts) @ -yes. Postoperative complication (Devendra Alvarado) Reevaluation #5: Differential Abdominal Pain Women: Appendicitis, Cholecystitis, diverticulosis, ischemic bowel, pancreatitis, hepat itis, UTI, gastroenteritis, AAA, incarcerated hernia, bowel obstruction, constipation, inflammatory bowel, hepatitis, peptic ulcer disease, splenic infarction, perforated viscus, vulvitis, ovarian torsion, PID, kidney stone, placenta abruption, this is not meant to be an all-inclusive list (Devendra Alvarado) Medical Decision Making - Lab Data Result diagrams: 08/26/23 15:15 08/26/23 15:15 - Radiology Data Radiology results: report reviewed (CT of the abdomen pelvis is negative for acute disease), image reviewed <Devendra Alvarado - Last Filed: 09/01/23 16:48> - Medical Decision Making 68 female to the emergency department for evaluation of recent abdominal surgery, patient is a postoperative pain well-controlled here in the ER, she can be discharged home (Devendra Alvarado) - Lab Data Lab Results 01/16/24 01/16/24 01/16/24 Range/Units 15:15 15:15 16:03 WBC 6.7 (3.8-10.6) k/uL RBC 4.61 (3.80-5.40) m/uL Hgb 13.7 (11.4-16.0) gm/dL Hct 41.1 (34.0-46.0) % MCV 89.1 (80.0-100.0) fL MCH 29.7 (25.0-35.0) pg MCHC 33.4 (31.0-37.0) g/dL RDW 13.0 (11.5-15.5) % Plt Count 348 (150-450) k/uL MPV 7.0 Neutrophils % 51 % Lymphocytes % 37 % Monocytes % 6 % Eosinophils % 4 % Basophils % 1 % Neutrophils # 3.4 (1.3-7.7) k/uL Lymphocytes # 2.5 (1.0-4.8) k/uL Monocytes # 0.4 (0-1.0) k/uL Eosinophils # 0.2 (0-0.7) k/uL Basophils # 0.0 (0-0.2) k/uL Sodium 141 (137-145) mmol/L Potassium 3.8 (3.5-5.1) mmol/L Chloride 107 (98-107) mmol/L Carbon Dioxide 26 (22-30) mmol/L Anion Gap 8 mmol/L BUN 22 H (7-17) mg/dL Creatinine 0.78 (0.52-1.04) mg/dL Est GFR (CKD-EPI)AfAm 89 (>60 ml/min/1.73 sqM) Est GFR (CKD-EPI)NonAf 78 (>60 ml/min/1.73 sqM) Glucose 124 H (74-99) mg/dL Calcium 8.9 (8.4-10.2) mg/dL Total Bilirubin 0.2 (0.2-1.3) mg/dL AST 16 (14-36) U/L ALT 17 (4-34) U/L Alkaline Phosphatase 152 H (38-126) U/L Total Protein 6.9 (6.3-8.2) g/dL Albumin 4.2 (3.5-5.0) g/dL Amylase 58 (30-110) U/L Lipase 102 (23-300) U/L Urine Color Yellow Urine Appearance Cloudy H (Clear) Urine pH 5.0 (5.0-8.0) Ur Specific [place] 1.026 (1.001-1.035) Urine Protein Negative (Negative) Urine Glucose (UA) Negative (Negative) Urine Ketones Negative (Negative) Urine Blood Negative (Negative) Urine Nitrite Negative (Negative) Urine Bilirubin Negative (Negative) Urine Urobilinogen <2.0 (<2.0) mg/dL Ur Leukocyte Esterase Negative (Negative) Urine RBC <1 (0-5) /hpf Urine WBC 1 (0-5) /hpf Ur Squamous Epith Cells 1 (0-4) /hpf Hyaline Casts 1 (0-2) /lpf Urine Mucus Rare H (None) /hpf Disposition <Tova Guerra - Last Filed: 08/26/23 14:39> Is patient prescribed a controlled substance at d/c from ED?: No Time of Disposition: 18:00 <Devendra Alvarado - Last Filed: 09/01/23 16:48> Clinical Impression: Abdominal pain, Postoperative pain Disposition: HOME SELF-CARE Condition: Good Instructions (If sedation given, give patient instructions): Abdominal Pain (ED) Referrals: Flynn Siegel MD [Primary Care Provider] - 1-2 days Otilio Levi MD [Medical Doctor] - 1-2 days
[2023-08-26 15:31] LABS: Basophils % (A) 1 %; Eosinophils # (A) 0.2 k/uL (0-0.7); Eosinophils % (A) 4 %; HCT 41.1 % (34.0-46.0); HGB 13.7 gm/dL (11.4-16.0); Lymphocytes # (A) 2.5 k/uL (1.0-4.8); Lymphocytes % (A) 37 %; MCH 29.7 pg (25.0-35.0); MCHC 33.4 g/dL (31.0-37.0); MCV 89.1 fL (80.0-100.0); Monocytes # (A) 0.4 k/uL (0-1.0); Monocytes % (A) 6 %; Neutrophils # (A) 3.4 k/uL (1.3-7.7); Neutrophils % (A) 51 %; Platelet Count 348 k/uL (150-450); RBC 4.61 m/uL (3.80-5.40); WBC 6.7 k/uL (3.8-10.6)
[2023-08-26 15:43] LABS: ALT 17 U/L (4-34); AST 16 U/L (14-36); African American GFR (CKD) 89 (>60 ml/min/1.73 sqM); Albumin 4.2 g/dL (3.5-5.0); Alkaline Phosphatase 152 U/L (38-126); Amylase 58 U/L (30-110); Anion Gap 8 mmol/L; Blood Urea Nitrogen 22 mg/dL (7-17); Calcium 8.9 mg/dL (8.4-10.2); Carbon Dioxide 26 mmol/L (22-30); Chloride 107 mmol/L (98-107); Glucose 124 mg/dL (74-99); Lipase 102 U/L (23-300); Non-African American GFR(CKD) 78 (>60 ml/min/1.73 sqM); Potassium 3.8 mmol/L (3.5-5.1); Sodium 141 mmol/L (137-145); Total Bilirubin 0.2 mg/dL (0.2-1.3); Total Protein 6.9 g/dL (6.3-8.2)
[2023-08-26 16:18] LABS: Appearance,Urine Cloudy (Clear); Bilirubin,Urine Negative (Negative); Blood,Urine Negative (Negative); Color,Urine Yellow; Glucose,Urine (UA) Negative (Negative); Hyaline Casts,Urine 1 /lpf (0-2); Ketones,Urine Negative (Negative); Leukocyte Esterase,Urine Negative (Negative); Mucus,Urine Rare /hpf; Nitrite,Urine Negative (Negative); Protein,Urine Negative (Negative); RBC,Urine <1 /hpf (0-5); Specific Gravity,Urine 1.026 (1.001-1.035); Squamous Epithelial Cell,Urine 1 /hpf (0-4); Urobilinogen,Urine <2.0 mg/dL (<2.0); WBC,Urine 1 /hpf (0-5)
--- NOTE | 2023-08-26 16:54 | CT ---
EXAMINATION TYPE: CT abdomen pelvis w con DATE OF EXAM: 08/26/2023 COMPARISON: 06/10/2023 HISTORY: 68-year-old female LLQ abd pain. The patient had scar tissue wrapped around her bowel, had s urgery to fix it 06/17/23 TECHNIQUE: Contiguous axial scanning of the abdomen and pelvis following administration of 100 ml Iso noel 300 IV contrast. Delayed images through the kidneys and coronal/sagittal reconstructions perform ed. CT DLP: 1479.2 mGycm Automated exposure control for dose reduction was used. FINDINGS: The heart is mildly enlarged. Small pericardial effusion measuring 1 cm thick on the left s maude of the heart. Lung bases clear without pleural effusion. A couple tiny calcified granulomas are p resent. No focal liver lesion. Unchanged mild prominence to the bile ducts status post cholecystectomy. Santosh l venous system is patent. Adrenal glands, kidneys, spleen, pancreas within normal limits. Redemonstrated diverticulum of the posterior gastric fundus, distended slightly more now up to 2.4 cm . Laparotomy change along the anterior midline. Coils from prior mesh repair. No dilated small bowel, free fluid, or free air. No mesenteric or retroperitoneal adenopathy. Some subcutaneous fat stranding along the periumbilical laparotomy site appears slightly increased. Appendix not clearly identified. No secondary findings of acute appendicitis in the right lower quadr ant. There is moderate stool burden. Staple line at the distal sigmoid from prior resection and re-anastom osis. No pericolonic inflammatory change. Bladder is collapsed. Uterus surgically absent. Neither ovary is seen. No abnormal fluid collection i n the pelvis or pelvic lymphadenopathy. Bones: Facet arthropathy mid to lower lumbar spine. No osseous destructive process. IMPRESSION: 1. ANTERIOR MIDLINE LAPAROTOMY CHANGES. FAT STRANDING NEAR IN THE SUBCUTANEOUS FAT LAYER IS SLIGHTLY INCREASED FROM 06/10/2023. CORRELATE TO EXCLUDE ANY SIGNS/SYMPTOMS OF CELLULITIS HERE. 2. SMALL PERICARDIAL EFFUSION ALONG THE LEFT SIDE OF THE HEART MEASURING 1 CM MAY BE TRANSIENT. CLINI KRANTHI CORRELATE. 3. PREVIOUS RESECTION AND RE-ANASTOMOSIS OF THE DISTAL SIGMOID COLON.
[2023-08-26] MEDS ORDERED: diphenhydrAMINE 50 MG/ML 1 ML VIAL IVP STA (17:33)
[2023-08-26] MEDS ORDERED: METOCLOPRAMIDE 5 MG/ML 2 ML VIAL IVP STA (17:33)
[2023-08-26] MEDS ORDERED: SODIUM CHLORIDE 0.9% 500 ML 500 ML IV STA (17:33)
[2023-08-26] MEDS ORDERED: KETOROLAC 15 MG/ML 1 ML VIAL IVP STA (17:33)
[2023-08-26 18:59] VITALS: BP 170/83; PULSE 79; RESP 16; TEMP 98.9
== END 2023-08-26 19:03 | disposition home or self-care (01) ==
LOC: EC 14:17
DX: G89.18 Other acute postprocedural pain (principal); R10.32 Left lower quadrant pain; E11.9 Type 2 diabetes mellitus without complications; I10 Essential (primary) hypertension; G40.909 Epilepsy, unspecified, not intractable, without status epilepticus; E78.5 Hyperlipidemia, unspecified; F32.A Depression, unspecified; F41.9 Anxiety disorder, unspecified; Z79.4 Long term (current) use of insulin; Z79.84 Long term (current) use of oral hypoglycemic drugs; Z79.01 Long term (current) use of anticoagulants; Z79.899 Other long term (current) drug therapy; Z86.73 Personal history of transient ischemic attack (TIA), and cerebral infarction without residual deficits; Z90.49 Acquired absence of other specified parts of digestive tract; Z88.8 Allergy status to other drugs, medicaments and biological substances; Z91.018 Allergy to other foods
CPT/HCPCS: 36415; 80053; 82150; 83690; 85025; 81001; 74177; 99284; 96374; 96375 ×2; J1200; J2765; J1885; Q9967

== ENCOUNTER → 2024-01-26 | Outpatient (CLI) | payer MEDICARE, BC ==
[2024-01-26 10:31] LABS: Blood Urea Nitrogen 9.6 mg/dL (9.0-27.0); Calcium 8.9 mg/dL (8.7-10.3); Carbon Dioxide 23.3 mmol/L (21.6-31.8); Chloride 101 mmol/L (96-109); Glucose 239 mg/dL (70-110); Potassium 4.5 mmol/L (3.5-5.5); Sodium 138 mmol/L (135-145)
== END | disposition home or self-care (01) ==
LOC: LABWHC1 08:06
PROVIDERS: ATTEND Internal Medicine
DX: I10 Essential (primary) hypertension (principal); E11.65 Type 2 diabetes mellitus with hyperglycemia
CPT/HCPCS: 36415; 80048; 83036

== ENCOUNTER 2024-01-27 08:31 | Emergency (ER) | payer MEDICARE, BC ==
[2024-01-27 08:38] VITALS: TEMP 98.7
[2024-01-27] MEDS: SODIUM CHLORIDE 0.9% 1,000 ML IV STA (09:34)
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
[2024-01-27 09:44] LABS: Basophils % (A) 1 %; Eosinophils # (A) 0.1 k/uL (0-0.7); Eosinophils % (A) 2 %; HCT 46.1 % (34.0-46.0); HGB 14.6 gm/dL (11.4-16.0); Lymphocytes % (A) 28 %; MCH 28.2 pg (25.0-35.0); MCHC 31.7 g/dL (31.0-37.0); Mean Platelet Volume 7.2; Monocytes # (A) 0.5 k/uL (0-1.0); Monocytes % (A) 6 %; Neutrophils # (A) 4.5 k/uL (1.3-7.7); Neutrophils % (A) 62 %; Platelet Count 352 k/uL (150-450); RBC 5.18 m/uL (3.80-5.40); RDW 13.5 % (11.5-15.5); WBC 7.3 k/uL (3.8-10.6)
[2024-01-27 10:23] LABS: ALT 15 U/L (4-34); AST 17 U/L (14-36); African American GFR (CKD) >90 (>60 ml/min/1.73 sqM); Alkaline Phosphatase 161 U/L (38-126); Anion Gap 9 mmol/L; Blood Urea Nitrogen 12 mg/dL (7-17); Calcium 8.8 mg/dL (8.4-10.2); Carbon Dioxide 24 mmol/L (22-30); Chloride 106 mmol/L (98-107); Glucose 226 mg/dL (74-99); Magnesium 1.4 mg/dL (1.6-2.3); Non-African American GFR(CKD) >90 (>60 ml/min/1.73 sqM); Potassium 3.9 mmol/L (3.5-5.1); Sodium 139 mmol/L (137-145); Total Bilirubin 0.4 mg/dL (0.2-1.3); Total Protein 6.6 g/dL (6.3-8.2)
--- NOTE | 2024-01-27 10:40 | CT ---
EXAMINATION TYPE: CT brain wo con DATE OF EXAM: 01/27/2024 COMPARISON: 06/07/2021 INDICATION: Seizure activity DLP: 1125.1 mGycm, Automated exposure control for dose reduction was used. CONTRAST: None CT of the brain is performed utilizing 3 mm thick sections through the posterior fossa and 3 mm thick sections through the remaining calvarium. Study is performed within 24 hours of arrival to the hosp ital. No abnormal hyperdensity is present to suggest an acute intracranial hemorrhage. No mass lesion is evident. No acute infarcts are evident. Ventricles and sulci are appropriate for the patient age. Paranasal sinuses and mastoid air cells within the [id number] are clear. IMPRESSION: 1. No acute intracranial process. Follow-up MRI can be performed as clinically indicated
[2024-01-27] MEDS: MAGNESIUM SULFATE-D5W PMX 1 GM in DEXTROSE/WATER 1 100ML.BAG IVPB ONE (11:10)
[2024-01-27 13:08] VITALS: BP 172/78; PULSE 68; RESP 18
== END 2024-01-27 13:08 | disposition home or self-care (01) ==
LOC: EC 08:31
DX: G40.909 Epilepsy, unspecified, not intractable, without status epilepticus (principal); E83.42 Hypomagnesemia; Z88.8 Allergy status to other drugs, medicaments and biological substances
CPT/HCPCS: 36415; 93005; 80053; 83735; 85025; 70450; 99285; 96365; 96366; 96361 ×2; J3475

== ENCOUNTER 2024-03-24 06:05 | Day surgery (SDC) | payer BC, MEDICARE ==
[2024-03-24] MEDS ORDERED: LIDOCAINE 1% INJ 10MG/ML (20 ML MDV) ONE ×2 (07:19)
[2024-03-24] MEDS ORDERED: VERAPAMIL 2.5 MG/ML 2 ML AMP ONE ×2 (07:19)
[2024-03-24] MEDS ORDERED: HEPARIN SODIUM 1,000 UN/ML (10ML VL) ONE ×2 (07:19)
[2024-03-24] MEDS ORDERED: fentaNYL (PF) 50 MCG/ML 2 ML AMP ONE ×2 (07:19)
[2024-03-24] MEDS ORDERED: MIDAZOLAM 2 MG/2 ML VIAL ONE (07:28)
[2024-03-24] MEDS ORDERED: CLOPIDOGREL 75 MG TAB ONE ×2 (07:44)
[2024-03-24] MEDS ORDERED: SODIUM CHLORIDE 0.9% 1,000 ML BAG ONE (08:00)
[2024-03-24] MEDS: IOPAMIDOL-370 100ML BTL INJ ONE (08:10)
--- NOTE | 2024-04-22 15:04 | CC ---
CARDIAC CATHETERIZATION REPORT INDICATIONS: Mrs. Harden is a 69-year-old female with known history of hypertension, hyperlipidemia, diabetes mellitus, who has been complaining of symptoms of dyspnea on exertion. She had an abnormal MPI. In view of that, recommendation was made regarding cardiac catheterization. The procedure as well as risks and complications were discussed with the patient, who was in full understanding and agreement. PROCEDURE DESCRIPTION: The patient was brought to the center medical and lab director in a fasting state after receiving fentanyl and Benadryl. Using xylocaine anesthesia and Seldinger technique, a 6-American sheath was introduced in the right radial artery. Selective right and left coronary angiography performed using 5-American, 3.5 bend right and left chest catheter. Multiple views of the coronary artery including hemiaxial views obtained. Following that 5-American tight pigtail catheter placed in the left ventricle, left ventricular end-diastolic pressure was calculated. Following that, catheter was removed. Images were reviewed. PCI. After removing the catheter, a 6-American EBU 3.75 guiding catheter introduced in the system and after stenting the left main, a 0.014 balanced medium weight J- wire was advanced into the OM1 and positioned distally with the help of a SuperCross microcatheter. Attempt to advance a 2.5 x 12 mm Trek balloon was unsuccessful because of the severe tortuosity and the angulation. The balloon was removed and a GuideLiner was advanced and attempt to advance the balloon with the guideliner was unsuccessful as well. At that point, the decision was made to stop the procedure and continue with medical therapy. The guiding catheter was removed. The sheath was removed. Hemostasis was obtained with TR band. There was no immediate complication. The patient returned to her room in stable condition. Of note, the patient received an oral loading dose of clopidogrel in addition to 6500 units of intravenous heparin. Her HCT was monitored. She has no chest discomfort or changes. FINDINGS: Fluoroscopy: There was calcification involving the LAD. Left main: This is a short-sized vessel, bifurcating into LAD and left circumflex. Left main coronary artery has no obstructive disease. Left anterior descending artery. This is a large-sized vessel reaching to the apex with a wraparound apex segment. The proximal LAD has an eccentric 30% to 40% plaque. The mid LAD after the takeoff of the diagonal branch, there is another 50% plaque. There is mild intimal disease in the mid and distal LAD without high-grade stenosis. Left circumflex: This is a large nondominant vessel giving rise to 2 obtuse marginal branches. The first obtuse marginal branch is very tortuous. In the mid segment of the obtuse marginal branch, there is a 95% stenosis. The rest of the vessel has no high-grade stenosis. The second obtuse marginal branch is a 50% to 60% plaque. Right coronary artery. This is a large dominant vessel bifurcating distally to PDA and PLV. The PDA has a 50% to 60% plaque at the proximal segment, and there is an intimal disease of 30% to 40% and PLV. The rest of the vessel has no high-grade stenosis. CONCLUSION: 1. Significant disease in the OM1 with inability to advance the balloon because of severe tortuosity. 2. Moderate disease in the LAD and the right coronary artery. 3. Dominant right coronary artery. RECOMMENDATIONS: In view of findings and anatomy, I recommend to continue with aggressive medical therapy, because of the increased risk of attempting to pursue PCI at this point can have . The findings were discussed with the patient and her family, and they are in full understanding and agreement. Aggressive modification will be continued. DURATION OF SEDATION: 41 minutes. MMODL / IJN: [id number] / MTDChantal
== END 2024-03-24 12:33 | disposition home or self-care (01) ==
LOC: CATHCVL 06:05
PROVIDERS: ATTEND Internal Medicine Interventional Cardiology
DX: I25.10 Atherosclerotic heart disease of native coronary artery without angina pectoris (principal); E11.9 Type 2 diabetes mellitus without complications; E78.5 Hyperlipidemia, unspecified; I10 Essential (primary) hypertension; Z79.899 Other long term (current) drug therapy; Z79.84 Long term (current) use of oral hypoglycemic drugs
CPT/HCPCS: 93458

== ENCOUNTER → 2024-05-11 | Outpatient (CLI) | payer MEDICARE ==
[2024-05-11 11:40] LABS: Chol/HDL Ratio 4.49 Ratio
[2024-05-11 11:41] LABS: ALT 16 U/L (8-44); AST 13 U/L (13-35); Albumin 4.3 g/dL (3.8-4.9); Albumin/Globulin Ratio 1.79 Ratio (1.60-3.17); Alkaline Phosphatase 181 U/L (41-126); BUN/Creat Ratio 25.25 Ratio (12.00-20.00); Blood Urea Nitrogen 20.2 mg/dL (9.0-27.0); Calcium 9.2 mg/dL (8.7-10.3); Carbon Dioxide 23.9 mmol/L (21.6-31.8); Chloride 97 mmol/L (96-109); Globulin 2.4 g/dL (1.6-3.3); Glucose 281 mg/dL (70-110); LDL Cholesterol,Calculated 73.6 mg/dL (0.0-131.0); Potassium 4.4 mmol/L (3.5-5.5); Sodium 134 mmol/L (135-145); Total Bilirubin 0.2 mg/dL (0.3-1.2); Total Protein 6.7 g/dL (6.2-8.2)
== END | disposition home or self-care (01) ==
LOC: LABWHC1 07:10
PROVIDERS: ATTEND Internal Medicine Interventional Cardiology
DX: E78.2 Mixed hyperlipidemia (principal)
CPT/HCPCS: 36415; 80053; 80061

== ENCOUNTER 2024-07-01 21:50 | Inpatient (IN) | payer MEDICARE, BC ==
--- NOTE | 2024-07-01 22:12 | ED ---
Abdominal Pain HPI - General Source: patient, RN notes reviewed Mode of arrival: wheelchair Limitations: no limitations <Susan Chavez - Last Filed: 07/01/24 22:11> - General Source: patient, RN notes reviewed, old records reviewed <Dharmesh Doran - Last Filed: 07/02/24 02:56> - General Chief Complaint: Abdominal Pain Stated Complaint: abd pain, TRACY Time Seen by Provider: 07/01/24 22:11 - History of Present Illness Initial Comments: Note: 69-year-old presented to ER with a chief complaint of abdominal pain x 5 days. Patient does report a history of colon resection/surgery was performed by last year. She has been past 5 days she has been having gradually increasing in intensity abdominal pain. She does state her abdomen appears distended. She reports nausea no vomiting. Patient states her last bowel movement was today and states it was "watery. No fevers. (Susan Chavez) Patient is a 69-year-old female who originally presents as a quick note. Complaining of 4 to 5 days of worsening abdominal pain and bloating. Has a history of colon resection by Dr. Levi. Has a history of diabetes, hypertens ion, hyperlipidemia, seizure disorder. States she is still having bowel movements but it is mostly watery stool. Endorses nausea but no emesis. Denies chest pain or shortness of breath. Denies fevers or chills. Has noticed progressively more swollen abdomen which is why she presents for further evaluation. No fevers or chills or sick contacts. Presents for further evaluation. (Dharmesh Doran) - Related Data Home Medications Medication Instructions Recorded Confirmed levETIRAcetam [Keppra] 1,000 mg PO BID 12/16/13 01/27/24 Atorvastatin [Lipitor] 20 mg PO HS 04/21/14 01/27/24 Enalapril [Vasotec] 20 mg PO BID 06/07/21 01/27/24 Metoprolol Tartrate [Lopressor] 50 mg PO TID 06/07/21 01/27/24 amLODIPine [Norvasc] 10 mg PO HS 06/07/21 01/27/24 carBAMazepine [carBAMazepine ER] 600 mg PO BID 11/13/21 01/27/24 PARoxetine [Paxil] 10 mg PO DAILY 01/18/22 01/27/24 Insulin Regular, Human [NovoLIN R] See Protocol SQ AC-TID 06/10/23 01/27/24 Pioglitazone [Actos] 30 mg PO DAILY 06/10/23 01/27/24 cloNIDine HCL [Catapres] 0.2 mg PO HS 06/10/23 01/27/24 glipiZIDE [Glucotrol] 10 mg PO BID 06/10/23 01/27/24 Docusate [Colace] 100 mg PO TID PRN 08/26/23 01/27/24 Aspirin EC [Ecotrin Low Dose] 81 mg PO HS 01/27/24 01/27/24 hydrALAZINE HCL [Apresoline] 100 mg PO BID 01/27/24 01/27/24 hydroCHLOROthiazide [Hydrodiuril] 25 mg PO DAILY 01/27/24 01/27/24 Allergies Allergy/AdvReac Type Severity Reaction Status Date / Time chlorhexidine Allergy Itching Verified 07/01/24 22:00 Mushroom Allergy Itching Verified 07/01/24 22:00 metformin AdvReac Nausea & Verified 07/01/24 22:00 Vomiting Review of Systems ROS Other: All systems not noted in ROS Statement are negative. <Susan Chavez - Last Filed: 07/01/24 22:11> ROS Other: All systems not noted in ROS Statement are negative. <Dharmesh Doran - Last Filed: 07/02/24 02:56> ROS Statement: Those systems with pertinent positive or pertinent negative responses have been documented in the HPI. Review of Systems: CONST: Denies fever EYES: Denies blurry vision ENT: Denies nasal congestion C/V: Denies Chest pain RESP: Denies shortness of breath GI: Endorses abdominal pain, distention : Denies dysuria SKIN: Denies rash. MSK: Denies joint pain. NEURO: Denies headache (Dharmesh Doran) Past Medical History Past Medical History: Cancer, CVA/TIA, Diabetes Mellitus, GERD/Reflux, Hyperlipidemia, Hypertension, Osteoarthritis (OA), Pneumonia, Seizure Disorder Additional Past Medical History / Comment(s): breast/colon/ovarian,uterine CA, no bp in rt arm. told she had a stroke 03/2014 "blood clot in back of head". hx of head injury 3rd grade, pt states she has "slow thinking process"and seizures started after injury. -last seizure couple years ago, hx back pain, brain aneurysm 2007, menieres disease History of Any Multi-Drug Resistant Organisms: None Reported Past Surgical History: Adenoidectomy, Appendectomy, Bladder Surgery, Bowel Resec tion, Breast Surgery, Section, Cholecystectomy, Hernia Repair, Hysterectomy, Joint Replacement, Tonsillectomy Additional Past Surgical History / Comment(s): manpreet. mastectomy , manpreet BREAST BX, MANPREET CATARACT SX, BLADDER SUSPENSION, bowel resection x2 d/t ca, left total knee repl. Past Anesthesia/Blood Transfusion Reactions: Postoperative Nausea & Vomiting (PONV) Past Psychological History: Anxiety, Depression Smoking Status: Never smoker Past Alcohol Use History: None Reported Past Drug Use History: None Reported - Past Family History Mother Family Medical History: Cancer Father Family Medical History: Cancer <Susan Chavez - Last Filed: 07/01/24 22:11> General Exam Limitations: no limitations <Susan Chavez - Last Filed: 07/01/24 22:11> - General Exam Comments Initial Comments: Visual Physical Exam Vital signs reviewed General: Well-appearing, nontoxic, no acute distress. Head: Normocephalic, atraumatic Eyes: PERRLA, EOMI ENT: Airway patent Chest: Nonlabored breathing Skin: No visual rash, normal skin tone Neuro: Alert and oriented 3 Musculoskeletal: No gross abnormalities (Susan Chavez) Course Vital Signs 07/01/24 07/02/24 21:56 02:29 Temperature 98.5 F Pulse Rate 76 78 Respiratory 18 18 Rate Blood Pressure 143/78 156/67 O2 Sat by Pulse 97 97 Oximetry Medical Decision Making <Susan Chavez - Last Filed: 07/01/24 22:11> - Lab Data Result diagrams: 07/01/24 22:15 07/01/24 22:15 <Dharmesh Doran - Last Filed: 07/02/24 02:56> - Medical Decision Making I performed the quick note portion of this chart. Electronically signed by Susan Chavez PA-C (Susan Chavez) Was pt. sent in by a medical professional or institution (TONJA Ma, DRAPERY INSPECTOR, urgent care, hospital, or [facility]...) When possible be specific @ -No Did you speak to anyone other than the patient for history (EMS, parent, family, police, friend...)? What history was obtained from this source @ -No Did you review nursing and triage notes (agree or disagree)? Why? @ -I reviewed and agree with nursing and triage notes Were old charts reviewed (outside hosp., previous admission, EMS record, old EKG, old radiological studies, urgent care reports/EKG's, [facility] records)? Report findings @ -No old charts were reviewed Differential Diagnosis (chest pain, altered mental status, abdominal pain women, abdominal pain men, vaginal bleeding, weakness, fever, dyspnea, syncope, headache, dizziness, GI bleed, back pain, seizure, CVA, palpatations, mental health, musculoskeletal)? @ -Differential Abdominal Pain Women: Appendicitis, Cholecystitis, diverticulosis, ischemic bowel, pancreatitis, hepatitis, UTI, gastroenteritis, AAA, incarcerated hernia, bowel obstruction, co nstipation, inflammatory bowel, hepatitis, peptic ulcer disease, splenic infarction, perforated viscus, vulvitis, ovarian torsion, PID, kidney stone, placenta abruption, this is not meant to be an all-inclusive list EKG interpreted by me (3pts min.). @ -As above X-rays interpreted by me (1pt min.). @ -Chest x-ray reveals no obvious acute cardiopulmonary process. G-tube is in place. Shows atelectasis. Not concern for pneumonia as she has no symptoms. CT interpreted by me (1pt min.). @ -CT abdomen pelvis reveals findings consistent with partial small bowel obstruction U/S interpreted by me (1pt. min.). @ -None done What testing was considered but not performed or refused? (CT, X-rays, U/S, labs)? Why? @ -None What meds were considered but not given or refused? Why? @ -None Did you discuss the management of the patient with other professionals (professionals i.e. , PA, DRAPERY INSPECTOR, lab, RT, psych nurse, social worker aide, painting department supervisor, teacher, custodial officer, continuous pillowcase cutter)? Give summary @ -Discussed with Dr. Levi who accepted the consult was in agreement with the plan. Discussed with the admitting provider Dr. Brandon De La Garza who accepted the admission. Was smoking cessation discussed for >3mins.? @ -No Was critical care preformed (if so, how long)? @ -No Were there social determinants of health that impacted care today? How? (Homelessness, low income, unemployed, alcoholism, drug addiction, transportation, low edu. Level, literacy, decrease access to med. care, senior living, rehab)? @ -No Was there de-escalation of care discussed even if they declined (Discuss DNR or withdrawal of care, Hospice)? DNR status @ -No What co-morbidities impacted this encounter? (DM, HTN, Smoking, COPD, CAD, Cancer, CVA, ARF, Chemo, Hep., AIDS, mental health diagnosis, sleep apnea, morbid obesity)? @ -History of colon resection Was patient admitted / discharged? Hospital course, mention meds given and [place], prescriptions, significant lab abnormalities, going to OR and other pertinent info. @ -Patient presents emergency department with abdominal pain, distention. We obtain abdominal workup as well as CT imaging. She will be symptomatically treated with IV fluids, analgesia medications, antiemetics. Patient agreement this plan. Vital signs within acceptable limits. Laboratory studies remarkable for slight leukocytosis of 11.8. Lactic acid within normal limits. CT imaging shows a partial small bowel obstruction. I updated patient. NG tube will be placed. I discussed the case with the patient's surgeon, Dr. Levi who is in agreement with this plan. Patient will be admitted to medicine, n.p.o. I spoke with Dr. Brandon De La Garza who accepted the admission. Undiagnosed new problem with uncertain prognosis? @ -No Drug Therapy requiring intensive monitoring for toxicity (Heparin, Nitro, Ins ulin, Cardizem)? @ -No Were any procedures done? @ -No Diagnosis/symptom? @ -Partial small bowel obstruction Acute, or Chronic, or Acute on Chronic? @ -Acute Uncomplicated (without systemic symptoms) or Complicated (systemic symptoms)? @ -Complicated Side effects of treatment? @ -No Exacerbation, Progression, or Severe Exacerbation? @ -No Poses a threat to life or bodily function? How? (Chest pain, USA, CT, pneumonia, PE, COPD, DKA, ARF, appy, cholecystitis, CVA, Diverticulitis, Homicidal, Suicidal, threat to staff... and all critical care pts) @ -Yes (Dharmesh Doran) - Lab Data Lab Results 07/01/24 07/01/24 07/01/24 Range/Units 22:15 22:15 22:15 WBC 11.8 H (3.8-10.6) k/uL RBC 4.56 (3.80-5.40) m/uL Hgb 13.1 (11.4-16.0) gm/dL Hct 39.6 (34.0-46.0) % MCV 86.8 (80.0-100.0) fL MCH 28.7 (25.0-35.0) pg MCHC 33.1 (31.0-37.0) g/dL RDW 14.0 (11.5-15.5) % Plt Count 369 (150-450) k/uL MPV 7.6 Neutrophils % 68 % Lymphocytes % 24 % Monocytes % 5 % Eosinophils % 2 % Basophils % 0 % Neutrophils # 8.0 H (1.3-7.7) k/uL Lymphocytes # 2.8 (1.0-4.8) k/uL Monocytes # 0.6 (0-1.0) k/uL Eosinophils # 0.2 (0-0.7) k/uL Basophils # 0.0 (0-0.2) k/uL Sodium 132 L (137-145) mmol/L Potassium 4.4 (3.5-5.1) mmol/L Chloride 102 (98-107) mmol/L Carbon Dioxide 22 (22-30) mmol/L Anion Gap 8 mmol/L BUN 25 H (7-17) mg/dL Creatinine 0.73 (0.52-1.04) mg/dL Est GFR (CKD-EPI)AfAm >90 (>60 ml/min/1.73 sqM) Est GFR (CKD-EPI)NonAf 83 (>60 ml/min/1.73 sqM) Glucose 369 H (74-99) mg/dL Plasma Lactic Acid Miles 1.2 (0.7-2.0) mmol/L Calcium 8.5 (8.4-10.2) mg/dL Total Bilirubin 0.4 (0.2-1.3) mg/dL AST 19 (14-36) U/L ALT 16 (4-34) U/L Alkaline Phosphatase 180 H (38-126) U/L Total Protein 6.5 (6.3-8.2) g/dL Albumin 3.8 (3.5-5.0) g/dL Amylase <30 L (30-110) U/L Lipase 92 (23-300) U/L Disposition <Susan Chavez - Last Filed: 07/01/24 22:11> Time of Disposition: 00:30 <Dharmesh Doran - Last Filed: 07/02/24 02:56> Clinical Impression: Partial small bowel obstruction Disposition: ADMITTED IP TO THIS HOSP Condition: Stable
[2024-07-01] MEDS: SODIUM CHLORIDE 0.9% 1,000 ML IV STA (23:06)
[2024-07-01] MEDS: PANTOPRAZOLE 40 MG/10 ML VIAL IVP STA (23:09)
[2024-07-01] MEDS: ONDANSETRON 4 MG/2 ML VIAL IVP STA (23:12)
[2024-07-01] MEDS: MORPHINE SULFATE 4 MG/ML SYRINGE IVP STA (23:13)
[2024-07-01 23:27] LABS: ALT 16 U/L (4-34); AST 19 U/L (14-36); African American GFR (CKD) >90 (>60 ml/min/1.73 sqM); Albumin 3.8 g/dL (3.5-5.0); Alkaline Phosphatase 180 U/L (38-126); Amylase <30 U/L (30-110); Anion Gap 8 mmol/L; Blood Urea Nitrogen 25 mg/dL (7-17); Calcium 8.5 mg/dL (8.4-10.2); Carbon Dioxide 22 mmol/L (22-30); Chloride 102 mmol/L (98-107); Glucose 369 mg/dL (74-99); Lipase 92 U/L (23-300); Non-African American GFR(CKD) 83 (>60 ml/min/1.73 sqM); Potassium 4.4 mmol/L (3.5-5.1); Sodium 132 mmol/L (137-145); Total Bilirubin 0.4 mg/dL (0.2-1.3); Total Protein 6.5 g/dL (6.3-8.2)
[2024-07-01 23:43] LABS: Basophils % (A) 0 %; Eosinophils # (A) 0.2 k/uL (0-0.7); Eosinophils % (A) 2 %; HCT 39.6 % (34.0-46.0); HGB 13.1 gm/dL (11.4-16.0); Lymphocytes # (A) 2.8 k/uL (1.0-4.8); Lymphocytes % (A) 24 %; MCH 28.7 pg (25.0-35.0); MCHC 33.1 g/dL (31.0-37.0); MCV 86.8 fL (80.0-100.0); Mean Platelet Volume 7.6; Monocytes # (A) 0.6 k/uL (0-1.0); Monocytes % (A) 5 %; Neutrophils % (A) 68 %; Platelet Count 369 k/uL (150-450); RBC 4.56 m/uL (3.80-5.40); WBC 11.8 k/uL (3.8-10.6)
--- NOTE | 2024-07-02 00:17 | CT ---
EXAMINATION TYPE: CT abdomen pelvis w con DATE OF EXAM: 07/02/2024 HISTORY: Abdominal pain with nausea CT DLP: 1157.4mGycm Automated Exposure Control for Dose Reduction was Utilized. CONTRAST: CT scan of the abdomen and pelvis is performed with IV Contrast, patient injected with 100ml mL of Is ovue 300. COMPARISON: Prior CT August 26, 2023 FINDINGS: LUNG BASES: Cardiomegaly is present. Stable tiny calcified left lower lobe granuloma axial image 6. LIVER/GB: Cholecystectomy clips are redemonstrated. PANCREAS: No significant abnormality is seen. SPLEEN: No significant abnormality is seen. ADRENALS: Persistent nonspecific 2.2 cm left adrenal mass axial image 22. KIDNEYS: No significant abnormality is seen. BOWEL: No suspicious dilatation of stomach and current study there is prominence of the third and fou rth portion of duodenum. There are prominent and dilated fluid-filled small bowel loops assess in the left abdomen with air-fluid levels. Small bowel loops dilated up to 4.7 cm image 37. There are nondi lated distal small bowel loops in the pelvis. There is nondistended colon along the periphery. Surgic al changes sigmoid colon axial image 73 are redemonstrated. No definitive transition point. No free a ir. UTERUS/ADNEXA: Uterus is surgically absent. LYMPH NODES: No greater than 1cm abdominal or pelvic lymph nodes are appreciated. OSSEOUS STRUCTURES: No significant abnormality is seen. OTHER: Coils from ventral wall hernia repair surgery are redemonstrated. [id number] calcified p laque of the aorta extends into branch vessels IMPRESSION: Findings are consistent with at least partial mid small bowel obstruction as detailed abo ve. [facility], , 07/02/2024 12:15 AM
[2024-07-02] MEDS ORDERED: NALOXONE 0.4 MG/ML 1 ML VIAL IV PRN (00:57)
[2024-07-02] MEDS: MORPHINE SULFATE 4 MG/ML SYRINGE IV PRN (02:23)
[2024-07-02] MEDS: MORPHINE SULFATE 4 MG/ML SYRINGE IVP STA (02:25)
[2024-07-02] MEDS: LORazepam 2 MG/ML INJ IV STA (02:26)
[2024-07-02] MEDS: SODIUM CHLORIDE 0.9% 1,000 ML IV SCH (02:27)
--- NOTE | 2024-07-02 02:49 | XR ---
EXAMINATION TYPE: XR chest 1V portable DATE OF EXAM: 07/02/2024 CLINICAL HISTORY: Post-NG tube placement TECHNIQUE: Single frontal upright view of the chest is obtained. COMPARISON: Chest x-ray June 2023 FINDINGS: There is no nasogastric tube projecting below diaphragm. Persistent mild cardiomegaly. Patc hy left basilar opacity. Surgical clips in the right lateral thorax are redemonstrated. The osseous structures are intact. IMPRESSION: Satisfactory placement of nasogastric tube. New patchy left basilar opacity favoring atel ectasis versus developing acute infiltrate. [facility], , 07/02/2024 2:47 AM
[2024-07-02] MEDS: PANTOPRAZOLE 40 MG/10 ML VIAL IV SCH (09:22)
[2024-07-02] MEDS ORDERED: LABETALOL 5 MG/ML VIAL MDV IVP PRN ×2 (09:27→09:34)
[2024-07-02] MEDS ORDERED: levETIRAcetam IV 1,000 MG in SODIUM CHLORIDE 0.9% 250 ML IVPB SCH (09:30)
[2024-07-02] MEDS: levETIRAcetam IV 500 MG/5 ML VIAL IVP SCH (10:56)
[2024-07-02] MEDS: LACTATED RINGERS 1,000 ML IV SCH (10:58)
--- NOTE | 2024-07-02 11:41 | P.GSCN ---
History of Present Illness Consult date: 07/02/24 History of present illness: CHIEF COMPLAINT: Abdominal pain HISTORY OF PRESENT ILLNESS: This is a 69-year-old female who presents the hospital with complaints of abdominal pain for the past 5 days. Patient reporting that she is more distended and having nausea. Patient initially felt constipated and had started taking stool softeners. Patient reports initially was not working. She then doubled up on the stool softeners and started having watery stools for about 2 days. She continued to have abdominal pain and distention and came in to be evaluated. CT scan had reported a partial mid small bowel obstruction. Patient reports her last bowel movement was yesterday afternoon and it was diarrhea. She does report since the NG tube has been placed she has had some flatus and some mild relief in the abdominal pain. Patient does have a history of colon cancer x 3 with 3 separate bowel resections. And also history of lysis of adhesions in June 2023 for a bowel obstruction. Other surgical history includes hysterectomy, , cholecystectomy and bladder suspension. PAST MEDICAL HISTORY: See below PAST SURGICAL HISTORY: See below MEDICATIONS: See below ALLERGIES: See below SOCIAL HISTORY: No illicit drug use. REVIEW OF SYSTEMS: CONSTITUTIONAL: Denies fever or chills. HEENT: Denies blurred vision, vision changes, or eye pain. Denies hemoptysis CARDIOVASCULAR: Denies chest pain or pressure. RESPIRATORY: No shortness of breath. GASTROINTESTINAL: See HPI for pertinent findings HEMATOLOGIC: Denies bleeding disorders. GENITOURINARY: Denies any blood in urine or increased urinary frequency. SKIN: Denies pruitis. Denies rash. PHYSICAL EXAM: VITAL SIGNS: Reviewed GENERAL: Well-developed in no acute distress. HEENT: No sclera icterus. Extraocular movements grossly intact. Moist buccal mucosa. Head is atraumatic, normocephalic. No nasal drainage. ABDOMEN: Abdomen distended with tenderness to palpation in the mid abdomen and left lower quadrant. She is guarding. Old midline scar healed NEUROLOGIC: Alert and oriented. Cranial nerves II through XII grossly intact. LABORATORY DATA: WBC is 11.8, Hgb 13.1 platelets 369 Sodium 132 potassium 4.4 creatinine 0.73 IMAGING: CT scan abdomen pelvis reports findings are consistent with partial mid small bowel obstruction. ASSESSMENT: 1. Partial mid small bowel obstruction 2. Prior history of bowel obstruction with lysis of adhesions 3. History of colon cancer with bowel resection x3 PLAN: -Continue NG tube for decompression -Keep patient n.p.o. -Continue IV fluids -Continue pain management -Continue to monitor Physician Solar Installation Supervisor note has been reviewed by physician. Signing provider agrees with the documented findings, assessment, and plan of care. I have personally seen and examined the patient, reviewed the DRAWING IN MACHINE TENDER /PAs history, exam and MDM and agree with the assessment and plan as written. Based on total visit time, I have performed more than 50% of the visit. As above: Patient known to our service. 5-day history of crampy abdominal pain and bloating. Yesterday started having nausea and vomiting. Nasogastric tube fell out. Unclear from nursing staff how much came out after placement. Will leave out for now. Repeat x-rays tomorrow. Past Medical History Past Medical History: Cancer, CVA/TIA, Diabetes Mellitus, GERD/Reflux, Hyperlipidemia, Hypertension, Osteoarthritis (OA), Pneumonia, Seizure Disorder Additional Past Medical History / Comment(s): breast/colon/ovarian,uterine CA, no bp in rt arm. told she had a stroke 03/2014 "blood clot in back of head". hx of head injury 3rd grade, pt states she has "slow thinking process"and seizures started after injury. -last seizure couple years ago, hx back pain, brain aneurysm 2007, menieres disease History of Any Multi-Drug Resistant Organisms: None Reported Past Surgical History: Adenoidectomy, Appendectomy, Bladder Surgery, Bowel Resection, Breast Surgery, Section, Cholecystectomy, Hernia Repair, Hysterectomy, Joint Replacement, Tonsillectomy Additional Past Surgical History / Comment(s): manpreet. mastectomy , manpreet BREAST BX, MANPREET CATARACT SX, BLADDER SUSPENSION, bowel resection x2 d/t ca, left total knee repl. Past Anesthesia/Blood Transfusion Reactions: Postoperative Nausea & Vomiting (PONV) Past Psychological History: Anxiety, Depression Smoking Status: Never smoker Past Alcohol Use History: None Reported Past Drug Use History: None Reported - Past Family History Mother Family Medical History: Cancer Father Family Medical History: Cancer Medications and Allergies Home Medications Medication Instructions Recorded Confirmed Type levETIRAcetam [Keppra] 1,000 mg PO BID 12/16/13 07/02/24 History Enalapril [Vasotec] 20 mg PO BID 06/07/21 07/02/24 History Metoprolol Tartrate [Lopressor] 50 mg PO TID 06/07/21 07/02/24 History amLODIPine [Norvasc] 10 mg PO HS 06/07/21 07/02/24 History carBAMazepine [carBAMazepine ER] 600 mg PO BID 11/13/21 07/02/24 History PARoxetine [Paxil] 10 mg PO DAILY 01/18/22 07/02/24 History Insulin Regular, Human [NovoLIN R] See Protocol SQ AC-TID MDD 40 units 06/10/23 07/02/24 History Pioglitazone [Actos] 30 mg PO DAILY 06/10/23 07/02/24 History cloNIDine HCL [Catapres] 0.2 mg PO BID 06/10/23 07/02/24 History glipiZIDE [Glucotrol] 10 mg PO QAM 06/10/23 07/02/24 History Docusate [Colace] 100 mg PO TID PRN 08/26/23 07/02/24 History Aspirin EC [Ecotrin Low Dose] 81 mg PO HS 01/27/24 07/02/24 History hydrALAZINE HCL [Apresoline] 100 mg PO BID 01/27/24 07/02/24 History hydroCHLOROthiazide [Hydrodiuril] 25 mg PO DAILY 01/27/24 07/02/24 History Atorvastatin [Lipitor] 40 mg PO HS 07/02/24 07/02/24 History Ezetimibe [Zetia] 10 mg PO HS 07/02/24 07/02/24 History Allergies Allergy/AdvReac Type Severity Reaction Status Date / Time chlorhexidine Allergy Itching Verified 07/02/24 08:50 Mushroom Allergy Itching Verified 07/02/24 08:50 metformin AdvReac Nausea & Verified 07/02/24 08:50 Vomiting Surgical - Exam Vital Signs Temp Pulse Resp BP Pulse Ox 98.5 F 76 18 143/78 97 07/01/24 21:56 07/01/24 21:56 07/01/24 21:56 07/01/24 21:56 07/01/24 21:56 Results - Labs 07/01/24 22:15 07/01/24 22:15 Abnormal Lab Results - Last 24 Hours (Table) 07/01/24 07/01/24 Range/Units 22:15 22:15 WBC 11.8 H (3.8-10.6) k/uL Neutrophils # 8.0 H (1.3-7.7) k/uL Sodium 132 L (137-145) mmol/L BUN 25 H (7-17) mg/dL Glucose 369 H (74-99) mg/dL Alkaline Phosphatase 180 H (38-126) U/L Amylase <30 L (30-110) U/L Diabetes panel 07/01/24 Range/Units 22:15 Sodium 132 L (137-145) mmol/L Potassium 4.4 (3.5-5.1) mmol/L Chloride 102 (98-107) mmol/L Carbon Dioxide 22 (22-30) mmol/L BUN 25 H (7-17) mg/dL Creatinine 0.73 (0.52-1.04) mg/dL Glucose 369 H (74-99) mg/dL Calcium 8.5 (8.4-10.2) mg/dL AST 19 (14-36) U/L ALT 16 (4-34) U/L Alkaline Phosphatase 180 H (38-126) U/L Total Protein 6.5 (6.3-8.2) g/dL Albumin 3.8 (3.5-5.0) g/dL Calcium panel 07/01/24 Range/Units 22:15 Calcium 8.5 (8.4-10.2) mg/dL Albumin 3.8 (3.5-5.0) g/dL Pituitary panel 07/01/24 Range/Units 22:15 Sodium 132 L (137-145) mmol/L Potassium 4.4 (3.5-5.1) mmol/L Chloride 102 (98-107) mmol/L Carbon Dioxide 22 (22-30) mmol/L BUN 25 H (7-17) mg/dL Creatinine 0.73 (0.52-1.04) mg/dL Glucose 369 H (74-99) mg/dL Calcium 8.5 (8.4-10.2) mg/dL Adrenal panel 07/01/24 Range/Units 22:15 Sodium 132 L (137-145) mmol/L Potassium 4.4 (3.5-5.1) mmol/L Chloride 102 (98-107) mmol/L Carbon Dioxide 22 (22-30) mmol/L BUN 25 H (7-17) mg/dL Creatinine 0.73 (0.52-1.04) mg/dL Glucose 369 H (74-99) mg/dL Calcium 8.5 (8.4-10.2) mg/dL Total Bilirubin 0.4 (0.2-1.3) mg/dL AST 19 (14-36) U/L ALT 16 (4-34) U/L Alkaline Phosphatase 180 H (38-126) U/L Total Protein 6.5 (6.3-8.2) g/dL Albumin 3.8 (3.5-5.0) g/dL
[2024-07-02 12:08] LABS: Glucose,Whole Blood 245 mg/dL (70-110)
[2024-07-02] MEDS: INSULIN ASPART (NovoLOG) 100 UNIT/ML VIAL SQ SCH (13:39)
[2024-07-02 17:51] LABS: Glucose,Whole Blood 202 mg/dL (70-110)
[2024-07-02 18:49] LABS: Appearance,Urine Clear (Clear); Color,Urine Yellow; Protein,Urine Trace (Negative); Specific Gravity,Urine 1.029 (1.001-1.035)
[2024-07-02 18:50] LABS: Bilirubin,Urine Negative (Negative); Blood,Urine Negative (Negative); Glucose,Urine (UA) 4+ (Negative); Ketones,Urine 1+ (Negative); Leukocyte Esterase,Urine Negative (Negative); Nitrite,Urine Negative (Negative)
[2024-07-02 19:54] LABS: Glucose,Whole Blood 172 mg/dL (70-110)
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
[2024-07-02 23:07] LABS: Glucose,Whole Blood 159 mg/dL (70-110)
[2024-07-02] MEDS: ONDANSETRON 4 MG/2 ML VIAL IVP PRN (23:34)
[2024-07-03 06:48] LABS: Glucose,Whole Blood 154 mg/dL (70-110)
--- NOTE | 2024-07-03 08:12 | XR ---
Two-view abdomen HISTORY: Follow-up obstruction. COMPARISON: 06/14/2023. TECHNIQUE: Supine portable views of the abdomen were obtained. There are a few dilated small bowel loops in the midabdomen consistent a bowel obstruction. The lung bases are clear. The osseous structures are intact. IMPRESSION: Dilated small bowel loops in the mid abdomen consistent with a small bowel obstruction. [facility], , 07/03/2024 8:09 AM
[2024-07-03 10:42] LABS: ALT 121 U/L (8-44); AST 99 U/L (13-35); Albumin 3.4 g/dL (3.8-4.9); Alkaline Phosphatase 298 U/L (41-126); Blood Urea Nitrogen 9.3 mg/dL (9.0-27.0); Calcium 8.2 mg/dL (8.7-10.3); Carbon Dioxide 20.7 mmol/L (21.6-31.8); Chloride 106 mmol/L (96-109); Glucose 175 mg/dL (70-110); Potassium 4.2 mmol/L (3.5-5.5); Sodium 141 mmol/L (135-145); Total Bilirubin 0.2 mg/dL (0.3-1.2); Total Protein 5.4 g/dL (6.2-8.2)
[2024-07-03 10:45] LABS: Basophils # (A) 0.02 X 10*3/uL (0.00-0.10); Basophils % (A) 0.4 %; HGB 10.9 g/dL (12.0-15.0); Lymphocytes # (A) 1.41 X 10*3/uL (0.90-5.00); Lymphocytes % (A) 27.9 %; MCH 28.7 pg (27.0-32.0); MCHC 32.1 g/dL (32.0-37.0); MCV 89.5 FL (80.0-97.0); Mean Platelet Volume 9.7 FL (9.5-12.2); Monocytes # (A) 0.38 X 10*3/uL (0.20-1.00); Monocytes % (A) 7.5 %; NRBC Per 100 WBC 0 X 10*3/uL (0.00-0.01); Neutrophils # (A) 3.02 X 10*3/uL (1.80-7.70); Neutrophils % (A) 59.6 %; Platelet Count 243 X 10*3/uL (140-440); RDW 13.3 % (11.5-14.5); WBC 5.06 X 10*3/uL (4.50-10.00)
--- NOTE | 2024-07-03 10:57 | P.PN ---
Subjective Progress Note Date: 07/03/24 Principal diagnosis: Small bowel obstruction Patient states she had some recurrent abdominal pain last night and had an episode of vomiting. Repeat abdominal x-rays today still show small bowel dilation. No flatus or bowel movement. Objective - Vital Signs Vital signs: Vital Signs Temp 98.7 F 07/03/24 07:00 Pulse 68 07/03/24 07:00 Resp 18 07/03/24 07:00 BP 152/69 07/03/24 07:00 Pulse Ox 97 07/03/24 07:00 FiO2 Intake & Output 07/02/24 07/03/24 07/03/24 18:59 06:59 18:59 Weight 85.275 kg Other: Voiding Method Toilet Toilet Bedside Commode Bedside Commode Diaper Diaper # Voids 3 - Exam Abdomen: Soft, mild distention, mild tenderness - Labs CBC & Chem 7: 07/03/24 04:14 07/03/24 04:14 Labs: Abnormal Lab Results - Last 24 Hours (Table) 07/02/24 07/02/24 07/02/24 Range/Units 12:06 17:49 18:40 RBC (4.10-5.20) X 10*6/uL Hgb (12.0-15.0) g/dL Hct (37.2-46.3) % Carbon Dioxide (21.6-31.8) mmol/L Anion Gap (4.00-12.00) mmol/L Glucose (70-110) mg/dL POC Glucose (mg/dL) 245 H 202 H (70-110) mg/dL Calcium (8.7-10.3) mg/dL Total Bilirubin (0.3-1.2) mg/dL AST (13-35) U/L ALT (8-44) U/L Alkaline Phosphatase (41-126) U/L Total Protein (6.2-8.2) g/dL Albumin (3.8-4.9) g/dL Urine Protein Trace H (Negative) Urine Glucose (UA) 4+ H (Negative) Urine Ketones 1+ H (Negative) 07/02/24 07/02/24 07/03/24 Range/Units 19:53 23:05 04:14 RBC 3.80 L (4.10-5.20) X 10*6/uL Hgb 10.9 L (12.0-15.0) g/dL Hct 34.0 L (37.2-46.3) % Carbon Dioxide (21.6-31.8) mmol/L Anion Gap (4.00-12.00) mmol/L Glucose (70-110) mg/dL POC Glucose (mg/dL) 172 H 159 H (70-110) mg/dL Calcium (8.7-10.3) mg/dL Total Bilirubin (0.3-1.2) mg/dL AST (13-35) U/L ALT (8-44) U/L Alkaline Phosphatase (41-126) U/L Total Protein (6.2-8.2) g/dL Albumin (3.8-4.9) g/dL Urine Protein (Negative) Urine Glucose (UA) (Negative) Urine Ketones (Negative) 07/03/24 07/03/24 Range/Units 04:14 06:47 RBC (4.10-5.20) X 10*6/uL Hgb (12.0-15.0) g/dL Hct (37.2-46.3) % Carbon Dioxide 20.7 L (21.6-31.8) mmol/L Anion Gap 14.30 H (4.00-12.00) mmol/L Glucose 175 H (70-110) mg/dL POC Glucose (mg/dL) 154 H (70-110) mg/dL Calcium 8.2 L (8.7-10.3) mg/dL Total Bilirubin 0.2 L (0.3-1.2) mg/dL AST 99 H (13-35) U/L ALT 121 H (8-44) U/L Alkaline Phosphatase 298 H (41-126) U/L Total Protein 5.4 L (6.2-8.2) g/dL Albumin 3.4 L (3.8-4.9) g/dL Urine Protein (Negative) Urine Glucose (UA) (Negative) Urine Ketones (Negative) Assessment and Plan (1) Partial small bowel obstruction Narrative/Plan: 69-year-old female with recurrent small bowel obstruction. Patient with somewhat hostile abdomen on exploration 1 year ago. Will have nasogastric tube reinserted. May shower. Will reassess tomorrow. May need PICC line and TPN starting Friday. Would recommend long attempt at nonoperative management in this particular case given the expected degree of abdominal adhesions and a ssociated comorbidities with reexploration. Current Visit: Yes Status: Acute Code(s): K56.600 - PARTIAL INTESTINAL OBSTRUCTION, UNSPECIFIED TO CAUSE SNOMED Code(s): 143124942
[2024-07-03] MEDS: LORazepam 2 MG/ML INJ IV PRN (11:10)
[2024-07-03 11:12] LABS: Glucose,Whole Blood 171 mg/dL (70-110)
--- NOTE | 2024-07-03 15:46 | P.PN ---
Subjective Progress Note Date: 07/03/24 Principal diagnosis: Diagnosis: #1 acute small bowel obstruction with the history of recurrent abdominal surgery with possible adhesion. 2. Hyperglycemia with diabetes mellitus type 2 currently on insulin and n.p.o. 3. History of underlying persistent hypertension currently on labetalol 4. Hyperlipidemia 5. Obesity 6. Degenerative osteoarthritis and status post left total knee arthroplasty. Progress note Date of service 07/03/[address] Siegel Patient seen [id number] today discussed with her the plan of care Also Dr. Hart the surgeon saw her and discussed with her the plan of care. Her vital signs today temperature 98.7 F oral, heart rate 73/min respiratory rate 16/min, her blood pressure ranging between 148/70-168/80 and she already having labetalol with systolic blood pressure more than 160. Oxygen saturation ranging between 97% - 94%. Patient indicated that her abdominal pain and feeling nauseated was last night exacerbated and she was treated. Dr. Hart discussed with her the management with the underlying trial of symptomatic management because of her previous multiple abdominal surgery including resection of the colon due to colon cancer. And the possibility of extensive adhesion is present. In reviewing of the laboratory today: Found that her white count is 5.06 and the hemoglobin is 10.9., Initial hemoglobin on admission on 07/01/2024 was 13.1 with the drop 2.2 g with the possibility due to hydration, also hematocrit was 39.6 dropped to 34. WBC on admission 11.8, today 5.06. Carbon dioxide was 22 on admission and currently 20.7 and she is tendency to mild metabolic acidosis will be checking tomorrow her BMP as well as CBC with differential, as well as iron panel. New event of elevated liver enzyme which on admission was normal AST 19, ALT 16 and alkaline phosphatase was 180 with the bilirubin 0.5 and today AST 99, and ALT 121, and alkaline phosphatase 298 With this finding will obtain tomorrow hepatic function panel, and hepatitis C evaluation acute panel. For clarification. On admission she had a CT of the abdomen which indicate small bowel obstruction however at that time no clear comment on liver and spleen and mentioned it is okay If this is progressed we have to order ultrasound liver, and also I order NT proBNP to see the effect of any event of volume overload however patient did not complain of shortness of breath and she did not have edema of the lower extremities and the main concern of the abdominal distention and small bowel obstruction. On the physical exam: Patient is conscious alert oriented she able to stand up and sit and walk and I advised nursing staff for walking with metal moulder's assistant 4 times to facilitate improvement of the small bowel if she can. The head was normocephalic atraumatic pupil was equal reactive and normal hearing oropharynx negative and she is feeling hungry. Neck was supple no JVD no thyromegaly no lymphadenopathy trachea midline Chest was clear to auscultation percussion Heart was regular sinus rhythm Abdomen was distended tympanitic on percussion and tender on deep palpation in the mid abdomen and on the left side no flatus and no BM. Extremities no edema and positive pulses. With good perfusion Neurologically: Stable no lateralizing sign able to move and stand and walk Psychiatry she had history of depression and anxiety but she currently stable. Assessment: Acute small bowel obstruction Diabetes mellitus type 2 currently on insulin dependent Hypertension and hypertensive heart disease with persistent hypertension currently on labetalol Event of abnormal elevation of the liver enzyme as indicated by today laboratory. History of seizure disorder however patient on Keppra and no evidence of new or breakthrough seizures. Plan: 1. She is n.p.o. 2. Will try to ambulate 4 times a day with patient care nursing assistant 3. Obtaining laboratory in a.m. 4. Continue symptomatic treatment 5. Currently Dr. Hart the surgeon following the patient closely. Objective - Vital Signs Vital signs: Vital Signs Temp 98.7 F 07/03/24 13:30 Pulse 73 07/03/24 13:30 Resp 16 07/03/24 13:30 BP 168/80 07/03/24 13:30 Pulse Ox 94 L 07/03/24 13:30 FiO2 Intake & Output 07/02/24 07/03/24 07/03/24 18:59 06:59 18:59 Weight 85.275 kg Other: Voiding Method Toilet Toilet Bedside Commode Bedside Commode Diaper Diaper # Voids 3 - Labs CBC & Chem 7: 07/03/24 04:14 07/03/24 04:14 Labs: Abnormal Lab Results - Last 24 Hours (Table) 07/02/24 07/02/24 07/02/24 Range/Units 17:49 18:40 19:53 RBC (4.10-5.20) X 10*6/uL Hgb (12.0-15.0) g/dL Hct (37.2-46.3) % Carbon Dioxide (21.6-31.8) mmol/L Anion Gap (4.00-12.00) mmol/L Glucose (70-110) mg/dL POC Glucose (mg/dL) 202 H 172 H (70-110) mg/dL Calcium (8.7-10.3) mg/dL Total Bilirubin (0.3-1.2) mg/dL AST (13-35) U/L ALT (8-44) U/L Alkaline Phosphatase (41-126) U/L Total Protein (6.2-8.2) g/dL Albumin (3.8-4.9) g/dL Urine Protein Trace H (Negative) Urine Glucose (UA) 4+ H (Negative) Urine Ketones 1+ H (Negative) 07/02/24 07/03/24 07/03/24 Range/Units 23:05 04:14 04:14 RBC 3.80 L (4.10-5.20) X 10*6/uL Hgb 10.9 L (12.0-15.0) g/dL Hct 34.0 L (37.2-46.3) % Carbon Dioxide 20.7 L (21.6-31.8) mmol/L Anion Gap 14.30 H (4.00-12.00) mmol/L Glucose 175 H (70-110) mg/dL POC Glucose (mg/dL) 159 H (70-110) mg/dL Calcium 8.2 L (8.7-10.3) mg/dL Total Bilirubin 0.2 L (0.3-1.2) mg/dL AST 99 H (13-35) U/L ALT 121 H (8-44) U/L Alkaline Phosphatase 298 H (41-126) U/L Total Protein 5.4 L (6.2-8.2) g/dL Albumin 3.4 L (3.8-4.9) g/dL Urine Protein (Negative) Urine Glucose (UA) (Negative) Urine Ketones (Negative) 07/03/24 07/03/24 Range/Units 06:47 11:11 RBC (4.10-5.20) X 10*6/uL Hgb (12.0-15.0) g/dL Hct (37.2-46.3) % Carbon Dioxide (21.6-31.8) mmol/L Anion Gap (4.00-12.00) mmol/L Glucose (70-110) mg/dL POC Glucose (mg/dL) 154 H 171 H (70-110) mg/dL Calcium (8.7-10.3) mg/dL Total Bilirubin (0.3-1.2) mg/dL AST (13-35) U/L ALT (8-44) U/L Alkaline Phosphatase (41-126) U/L Total Protein (6.2-8.2) g/dL Albumin (3.8-4.9) g/dL Urine Protein (Negative) Urine Glucose (UA) (Negative) Urine Ketones (Negative)
[2024-07-03 17:30] LABS: Glucose,Whole Blood 134 mg/dL (70-110)
--- NOTE | 2024-07-03 18:08 | XR ---
EXAMINATION TYPE: XR chest 1V portable DATE OF EXAM: 07/03/2024 5:50 PM COMPARISON: Previous chest radiograph 07/02/2024. CLINICAL INDICATION: Female, 69 years old with history of NG tube placement; [facility] TECHNIQUE: XR chest 1V portable Frontal view of the chest. FINDINGS: Cardiomegaly, stable from prior study. Enteric tube courses below the diaphragm. No acute focal consolidation. No pleural effusion. No pneumothorax. Possible mild scarring/atelectasis in the mid lateral left lung. Post surgical changes in the right axilla. IMPRESSION: No acute abnormality in chest. [facility], , 07/03/2024 6:06 PM
[2024-07-03 20:51] LABS: Glucose,Whole Blood 121 mg/dL (70-110)
[2024-07-04] MEDS: hydrALAZINE HCL 20 MG/ML 1 ML VIAL IVP PRN (00:49)
[2024-07-04 01:47] LABS: Glucose,Whole Blood 133 mg/dL (70-110)
[2024-07-04] MEDS: ENALAPRILAT 1.25 MG/ML 1 ML VIAL IVP SCH ×2 (05:31→17:10)
[2024-07-04 06:29] LABS: Glucose,Whole Blood 142 mg/dL (70-110)
[2024-07-04 09:30] LABS: Basophils # (A) 0.04 X 10*3/uL (0.00-0.10); Basophils % (A) 0.5 %; Eosinophils # (A) 0.13 X 10*3/uL (0.04-0.35); Eosinophils % (A) 1.7 %; HCT 35.1 % (37.2-46.3); HGB 11.2 g/dL (12.0-15.0); Lymphocytes # (A) 1.71 X 10*3/uL (0.90-5.00); Lymphocytes % (A) 22.6 %; MCH 28.7 pg (27.0-32.0); MCHC 31.9 g/dL (32.0-37.0); Mean Platelet Volume 9.7 FL (9.5-12.2); Monocytes # (A) 0.54 X 10*3/uL (0.20-1.00); Monocytes % (A) 7.1 %; NRBC Per 100 WBC 0 X 10*3/uL (0.00-0.01); Neutrophils # (A) 5.04 X 10*3/uL (1.80-7.70); Neutrophils % (A) 66.8 %; Platelet Count 276 X 10*3/uL (140-440); WBC 7.56 X 10*3/uL (4.50-10.00)
[2024-07-04 10:35] LABS: % Iron Saturation 17.11 (12.00-45.00); Iron 39 UG/DL (50-170); Total Iron Binding Capacity 228 UG/DL (228-460)
[2024-07-04 10:51] LABS: ALT 77 U/L (8-44); AST 37 U/L (13-35); Albumin 3.4 g/dL (3.8-4.9); Alkaline Phosphatase 314 U/L (41-126); Bilirubin, Conjugated <0.20 mg/dL (0.20-0.40); Bilirubin,Unconjugated >0 mg/dL (0.20-1.00); Blood Urea Nitrogen 6.6 mg/dL (9.0-27.0); Calcium 8.2 mg/dL (8.7-10.3); Carbon Dioxide 15.9 mmol/L (21.6-31.8); Chloride 103 mmol/L (96-109); Glucose 143 mg/dL (70-110); Potassium 3.9 mmol/L (3.5-5.5); Sodium 138 mmol/L (135-145); Total Bilirubin 0.2 mg/dL (0.3-1.2); Total Protein 5.4 g/dL (6.2-8.2)
--- NOTE | 2024-07-04 11:11 | P.PN ---
Subjective Progress Note Date: 07/04/24 Principal diagnosis: Small bowel obstruction Patient had her nasogastric tube placed last night. The canister is empty but the patient states it was drained at least once. 400 cc written by nursing staff. Not sure that is accurate. Still having some bloating and cramps. Whi te blood cell count 7.5. She did pass a small amount of flatus. No bowel movement. Pain is better today. Objective - Vital Signs Vital signs: Vital Signs Temp 98.8 F 07/04/24 08:01 Pulse 50 L 07/04/24 08:01 Resp 16 07/04/24 08:01 BP 162/83 07/04/24 08:01 Pulse Ox 96 07/04/24 08:01 FiO2 Intake & Output 07/03/24 07/04/24 07/04/24 18:59 06:59 18:59 Intake Total 0 Output Total 3 400 Balance -3 -400 Intake: Oral 0 Output: Gastric Drainage 400 Urine 3 Other: Voiding Method Toilet Toilet Toilet Bedside Commode Bedside Commode Bedside Commode Diaper Diaper Diaper # Voids 2 - Exam Abdomen: Soft, distended, mild diffuse tenderness - Labs CBC & Chem 7: 07/04/24 04:22 07/04/24 04:22 Labs: Abnormal Lab Results - Last 24 Hours (Table) 07/03/24 07/03/24 07/03/24 Range/Units 11:11 17:28 20:49 RBC (4.10-5.20) X 10*6/uL Hgb (12.0-15.0) g/dL Hct (37.2-46.3) % MCHC (32.0-37.0) g/dL Immature Gran # (0.00-0.04) X 10*3/uL Carbon Dioxide (21.6-31.8) mmol/L Anion Gap (4.00-12.00) mmol/L BUN (9.0-27.0) mg/dL BUN/Creatinine Ratio (12.00-20.00) Ratio Glucose (70-110) mg/dL POC Glucose (mg/dL) 171 H 134 H 121 H (70-110) mg/dL Calcium (8.7-10.3) mg/dL Iron (50-170) UG/DL Transferrin (204.0-354.0) mg/dL Total Bilirubin (0.3-1.2) mg/dL Unconjugated Bilirubin (0.20-1.00) mg/dL AST (13-35) U/L ALT (8-44) U/L Alkaline Phosphatase (41-126) U/L Total Protein (6.2-8.2) g/dL Albumin (3.8-4.9) g/dL 07/04/24 07/04/24 07/04/24 Range/Units 01:46 04:22 04:22 RBC 3.90 L (4.10-5.20) X 10*6/uL Hgb 11.2 L (12.0-15.0) g/dL Hct 35.1 L (37.2-46.3) % MCHC 31.9 L (32.0-37.0) g/dL Immature Gran # 0.10 H (0.00-0.04) X 10*3/uL Carbon Dioxide 15.9 L (21.6-31.8) mmol/L Anion Gap 19.10 H (4.00-12.00) mmol/L BUN 6.6 L (9.0-27.0) mg/dL BUN/Creatinine Ratio 11.00 L (12.00-20.00) Ratio Glucose 143 H (70-110) mg/dL POC Glucose (mg/dL) 133 H (70-110) mg/dL Calcium 8.2 L (8.7-10.3) mg/dL Iron 39 L (50-170) UG/DL Transferrin 163.0 L (204.0-354.0) mg/dL Total Bilirubin 0.2 L (0.3-1.2) mg/dL Unconjugated Bilirubin >0 L (0.20-1.00) mg/dL AST 37 H (13-35) U/L ALT 77 H (8-44) U/L Alkaline Phosphatase 314 H (41-126) U/L Total Protein 5.4 L (6.2-8.2) g/dL Albumin 3.4 L (3.8-4.9) g/dL 07/04/24 Range/Units 06:28 RBC (4.10-5.20) X 10*6/uL Hgb (12.0-15.0) g/dL Hct (37.2-46.3) % MCHC (32.0-37.0) g/dL Immature Gran # (0.00-0.04) X 10*3/uL Carbon Dioxide (21.6-31.8) mmol/L Anion Gap (4.00-12.00) mmol/L BUN (9.0-27.0) mg/dL BUN/Creatinine Ratio (12.00-20.00) Ratio Glucose (70-110) mg/dL POC Glucose (mg/dL) 142 H (70-110) mg/dL Calcium (8.7-10.3) mg/dL Iron (50-170) UG/DL Transferrin (204.0-354.0) mg/dL Total Bilirubin (0.3-1.2) mg/dL Unconjugated Bilirubin (0.20-1.00) mg/dL AST (13-35) U/L ALT (8-44) U/L Alkaline Phosphatase (41-126) U/L Total Protein (6.2-8.2) g/dL Albumin (3.8-4.9) g/dL Assessment and Plan (1) Partial small bowel obstruction Narrative/Plan: Patient was able to have her nasogastric tube placed yesterday. Continue conservative management of this bowel obstruction. Will consult for PICC line and TPN tomorrow. Recheck labs and x-rays tomorrow. Current Visit: Yes Status: Acute Code(s): K56.600 - PARTIAL INTESTINAL OBSTRUCTION, UNSPECIFIED TO CAUSE SNOMED Code(s): 057582742
[2024-07-04 11:20] LABS: Glucose,Whole Blood 138 mg/dL (70-110)
--- NOTE | 2024-07-04 13:05 | P.PN ---
Subjective Progress Note Date: 07/04/24 (Small bowel obstruction) Progress note Date of service 07/04/2024. Dictation by Dr. Siegel. Patient seen [id number] and discussed with her the current medical problem I reviewed her blood pressure and patient blood pressure the maximum recorded on the computer 179/75 with a mean 109 which she had persistent hypertension and used to have blood pressure in the 200 systolic in the past. In the ER I saw the patient on admission and I put order for labetalol IV and patient used to have beta-kellie orally and the admission placed her on fourth floor in spite of that she had labetalol IV and I found out that they do not give IV labetalol on fourth floor [place] and admission team did not recognize t hat she has labetalol for: Continue controlling blood pressure. I did speak last night with the nurse taking care of patient and the have difficulties with [employer] and we tried to solve these problem through the IT but was not sold and they called Dr. Jones who nicely order medication IV, subsequently I did call the hospital and recognize that patient given the treatment however I did order the labetalol initially to cover the patient and he told me that he could not give labetalol on the floor Patient subsequently continued on the IV medication of enalapril and I did increase it to 2.5 mg IV push every 6 hour as well as continued on hydralazine 10 mg IV every 6 hour blood pressure still 164/72 will see if the patient continued to have elevated blood pressure and the need of the beta-kellie, however I did ask the nurse and they stated that he could not even give metoprolol IV or labetalol on the floor and we will be happy to transfer the patient to the third floor to receive accurate medication for controlling the blood pressure. Patient received back her NG tube which was incidentally removed, also she received her Keppra after the IV changed. I did discuss with the patient that we adjusted her medication as she had multiple medication and there is no need for duplication and current medication is the appropriate added to controlling the blood pressure medicine with the IV medication. Her current vital signs today #1 she had temperature 98.8 F oral her pulse rate was 86 she had erroneous heart rate of 50 which could be a possibility when they put the NG tube with chest stimulate the vagus nerve and cause bradycardia but currently her heart rate is normal and the rate of 80 sinus regular Respiratory rate 16 no shortness of breath no chest pain, blood pressure 162/83 with a mean blood pressure 109 and oxygen saturation 96%. Patient is conscious alert oriented x 3, seen by Dr. Hart for the surgery monitoring with the small bowel obstruction, patient had no BM and, still distended, minimal flatus. The head was normocephalic atraumatic, pupils equal reactive, normal hearing, oropharynx normal tongue moist and normal swallowing natural teeth Neck was supple no JVD no thyromegaly no lymphadenopathy trachea midline. Chest was clear to auscultation percussion Heart was regular sinus rhythm. Abdomen distended and high-pitched bowel sound indicating the obstruction and abdominal pain intermittently. Extremities no edema and positive pulses. Neurologically stable Psychiatry stable Assessment and plan 1. Will increase enalapril 2.5 every 6 hours as well continued with hydralazine. If the blood pressure is not controlled with the high elevation to up to 180 or the heart rate start to be tachycardic, at that time we will have to transfer her to the third floor to add the labetalol or the B. Blockers to achieve good control for blood pressure as they do not give IV medication of beta-blockers or similar on the fourth floor. 2. Will continue the current treatment with the NG tube per Dr. Hart the surgical consult. 3. Laboratory today is reviewed with the improvement on the liver enzyme AST was yesterday 99 today 37 close to the normal, ALT was yesterday 121 and today 77 still abnormal and admission ALT 16. However alkaline phosphatase pro gressively elevated and started on admission 180-second on the reading 298 and today 314. Could be due to fasting state of the patient is questionable esequiel. 3. Anemia, iron deficiency with iron 39 and iron saturation 17.11 and total transferrin 163 with the underlying mixed picture. Currently patient n.p.o. and to give iron has to be IV and at this time we will hold and recheck again could be with the underlying small bowel obstruction 4. Diabetes mellitus which is CBG has been fairly well-controlled with the insulin to scale. 5. Carbon dioxide is 15.9 with the underlying anion gap 19.10 with the possibility of metabolic acidosis are considered however smiled and we will be repeating the BMP tomorrow. And and a CBC, also alk phos. Objective - Vital Signs Vital signs: Vital Signs Temp 98.8 F 07/04/24 08:01 Pulse 50 L 07/04/24 08:01 Resp 16 07/04/24 08:01 BP 162/83 07/04/24 08:01 Pulse Ox 96 07/04/24 08:01 FiO2 Intake & Output 07/03/24 07/04/24 07/04/24 18:59 06:59 18:59 Intake Total 0 Output Total 3 400 Balance -3 -400 Intake: Oral 0 Output: Gastric Drainage 400 Urine 3 Other: Voiding Method Toilet Toilet Toilet Bedside Commode Bedside Commode Bedside Commode Diaper Diaper Diaper # Voids 2 - Labs CBC & Chem 7: 07/04/24 04:22 07/04/24 04:22 Labs: Abnormal Lab Results - Last 24 Hours (Table) 07/03/24 07/03/24 07/04/24 Range/Units 17:28 20:49 01:46 RBC (4.10-5.20) X 10*6/uL Hgb (12.0-15.0) g/dL Hct (37.2-46.3) % MCHC (32.0-37.0) g/dL Immature Gran # (0.00-0.04) X 10*3/uL Carbon Dioxide (21.6-31.8) mmol/L Anion Gap (4.00-12.00) mmol/L BUN (9.0-27.0) mg/dL BUN/Creatinine Ratio (12.00-20.00) Ratio Glucose (70-110) mg/dL POC Glucose (mg/dL) 134 H 121 H 133 H (70-110) mg/dL Calcium (8.7-10.3) mg/dL Iron (50-170) UG/DL Transferrin (204.0-354.0) mg/dL Total Bilirubin (0.3-1.2) mg/dL Unconjugated Bilirubin (0.20-1.00) mg/dL AST (13-35) U/L ALT (8-44) U/L Alkaline Phosphatase (41-126) U/L Total Protein (6.2-8.2) g/dL Albumin (3.8-4.9) g/dL 11/24/24 11/24/24 11/24/24 Range/Units 04:22 04:22 06:28 RBC 3.90 L (4.10-5.20) X 10*6/uL Hgb 11.2 L (12.0-15.0) g/dL Hct 35.1 L (37.2-46.3) % MCHC 31.9 L (32.0-37.0) g/dL Immature Gran # 0.10 H (0.00-0.04) X 10*3/uL Carbon Dioxide 15.9 L (21.6-31.8) mmol/L Anion Gap 19.10 H (4.00-12.00) mmol/L BUN 6.6 L (9.0-27.0) mg/dL BUN/Creatinine Ratio 11.00 L (12.00-20.00) Ratio Glucose 143 H (70-110) mg/dL POC Glucose (mg/dL) 142 H (70-110) mg/dL Calcium 8.2 L (8.7-10.3) mg/dL Iron 39 L (50-170) UG/DL Transferrin 163.0 L (204.0-354.0) mg/dL Total Bilirubin 0.2 L (0.3-1.2) mg/dL Unconjugated Bilirubin >0 L (0.20-1.00) mg/dL AST 37 H (13-35) U/L ALT 77 H (8-44) U/L Alkaline Phosphatase 314 H (41-126) U/L Total Protein 5.4 L (6.2-8.2) g/dL Albumin 3.4 L (3.8-4.9) g/dL 07/04/24 Range/Units 11:19 RBC (4.10-5.20) X 10*6/uL Hgb (12.0-15.0) g/dL Hct (37.2-46.3) % MCHC (32.0-37.0) g/dL Immature Gran # (0.00-0.04) X 10*3/uL Carbon Dioxide (21.6-31.8) mmol/L Anion Gap (4.00-12.00) mmol/L BUN (9.0-27.0) mg/dL BUN/Creatinine Ratio (12.00-20.00) Ratio Glucose (70-110) mg/dL POC Glucose (mg/dL) 138 H (70-110) mg/dL Calcium (8.7-10.3) mg/dL Iron (50-170) UG/DL Transferrin (204.0-354.0) mg/dL Total Bilirubin (0.3-1.2) mg/dL Unconjugated Bilirubin (0.20-1.00) mg/dL AST (13-35) U/L ALT (8-44) U/L Alkaline Phosphatase (41-126) U/L Total Protein (6.2-8.2) g/dL Albumin (3.8-4.9) g/dL
[2024-07-04 13:18] LABS: Hepatitis A Antibody IgM Nonreactive (Nonreactive); Hepatitis B Core IgM Nonreactive (Nonreactive); Hepatitis B Surface Antigen Nonreactive (Nonreactive); Hepatitis C IgG Antibody Nonreactive (Nonreactive)
[2024-07-04 16:40] LABS: Glucose,Whole Blood 120 mg/dL (70-110)
[2024-07-04 20:37] LABS: Glucose,Whole Blood 141 mg/dL (70-110)
[2024-07-05 05:55] LABS: Glucose,Whole Blood 149 mg/dL (70-110)
[2024-07-05 09:04] LABS: Basophils # (A) 0.06 X 10*3/uL (0.00-0.10); Basophils % (A) 0.6 %; Eosinophils # (A) 0.12 X 10*3/uL (0.04-0.35); Eosinophils % (A) 1.3 %; HCT 39.1 % (37.2-46.3); HGB 12.2 g/dL (12.0-15.0); Lymphocytes # (A) 1.98 X 10*3/uL (0.90-5.00); Lymphocytes % (A) 21.4 %; MCH 28.1 pg (27.0-32.0); MCHC 31.2 g/dL (32.0-37.0); MCV 90.1 FL (80.0-97.0); Mean Platelet Volume 9.2 FL (9.5-12.2); Monocytes # (A) 0.76 X 10*3/uL (0.20-1.00); Monocytes % (A) 8.2 %; NRBC Per 100 WBC 0 X 10*3/uL (0.00-0.01); Neutrophils # (A) 6.21 X 10*3/uL (1.80-7.70); Neutrophils % (A) 67.3 %; Platelet Count 309 X 10*3/uL (140-440); RBC 4.34 X 10*6/uL (4.10-5.20); RDW 13.3 % (11.5-14.5); WBC 9.24 X 10*3/uL (4.50-10.00)
[2024-07-05 09:18] LABS: Calcium 8.6 mg/dL (8.7-10.3); Carbon Dioxide 13.7 mmol/L (21.6-31.8); Chloride 104 mmol/L (96-109); Glucose 160 mg/dL (70-110); Sodium 136 mmol/L (135-145)
[2024-07-05] MEDS ORDERED: ONDANSETRON 4 MG/2 ML VIAL IVP PRN (11:01)
--- NOTE | 2024-07-05 11:40 | P.PN ---
Subjective Progress Note Date: 07/05/24 SURGICAL PROGRESS NOTE CHIEF COMPLAINT: Partial small bowel obstruction HISTORY OF PRESENT ILLNESS: Patient continues to have abdominal pain. Pain is across the middle of the abdomen. She does report feeling nauseous. She did have a small emesis past the NG tube that was bilious in color last night. She is having a small amount of flatus. No bowel movement. She complains of a headache. NG tube with 400 mL output. Abdominal x-ray is ordered for today. WBC 9.24 PHYSICAL EXAM: VITAL SIGNS: Reviewed. GENERAL: Well-developed in no acute distress. ABDOMEN: Soft. Distended. Tenderness across the middle of the abdomen. NEUROLOGIC: Alert and oriented. Cranial nerves II through XII grossly intact. ASSESSMENT: 1. Partial small bowel obstruction PLAN: -Continue NG tube for decompression -Continue conservative management -PICC line ordered for TPN -consult dietitian for TPN -Follow-up on abdominal x-ray -IV Tylenol ordered for headache and pain as needed Physician Traffic Control Operator note has been reviewed by physician. Signing provider agrees with the documented findings, assessment, and plan of care. I have personally seen and examined the patient, reviewed the FOREIGN EXCHANGE CLERK /PAs history, exam and MDM and agree with the assessment and plan as written. Based on total visit time, I have performed more than 50% of the visit. As above: Patient doing a bit better today regarding her abdomen. She has passed a small amount of flatus. Her pain is less. Her abdominal x-rays show decreased bowel distention. Continue gastric decompression. Begin TPN. Objective - Vital Signs Vital signs: Vital Signs Temp 97.8 F 07/05/24 07:20 Pulse 88 07/05/24 07:20 Resp 16 07/05/24 07:20 BP 170/71 07/05/24 07:20 Pulse Ox 96 07/05/24 07:20 FiO2 Intake & Output 07/04/24 07/05/24 07/05/24 18:59 06:59 18:59 Output Total 400 400 Balance -400 -400 Output: Gastric Drainage 400 400 Other: Voiding Method Toilet Toilet Bedside Commode Bedside Commode Bedside Commode Diaper Diaper Diaper Incontinent # Voids 5 2 1 - Labs CBC & Chem 7: 07/05/24 04:01 07/05/24 04:01 Labs: Abnormal Lab Results - Last 24 Hours (Table) 07/03/24 07/04/24 07/04/24 Range/Units 04:14 16:38 20:35 MCHC (32.0-37.0) g/dL MPV (9.5-12.2) FL Immature Gran # (0.00-0.04) X 10*3/uL Carbon Dioxide (21.6-31.8) mmol/L Anion Gap (4.00-12.00) mmol/L BUN (9.0-27.0) mg/dL BUN/Creatinine Ratio (12.00-20.00) Ratio Glucose (70-110) mg/dL POC Glucose (mg/dL) 120 H 141 H (70-110) mg/dL Calcium (8.7-10.3) mg/dL NT-Pro-B Natriuret Pep 461 H (0-125) pg/mL 07/05/24 07/05/24 07/05/24 Range/Units 04:01 04:01 05:54 MCHC 31.2 L (32.0-37.0) g/dL MPV 9.2 L (9.5-12.2) FL Immature Gran # 0.11 H (0.00-0.04) X 10*3/uL Carbon Dioxide 13.7 L (21.6-31.8) mmol/L Anion Gap 18.30 H (4.00-12.00) mmol/L BUN 6.0 L (9.0-27.0) mg/dL BUN/Creatinine Ratio 10.00 L (12.00-20.00) Ratio Glucose 160 H (70-110) mg/dL POC Glucose (mg/dL) 149 H (70-110) mg/dL Calcium 8.6 L (8.7-10.3) mg/dL NT-Pro-B Natriuret Pep (0-125) pg/mL
[2024-07-05 11:41] LABS: Glucose,Whole Blood 149 mg/dL (70-110)
[2024-07-05 12:29] LABS: INR 0.9 (<1.2); Prothrombin Time 10.5 sec (10.0-12.5)
[2024-07-05 12:36] LABS: Magnesium 1.2 mg/dL (1.6-2.3); Phosphorus 3.3 mg/dL (2.5-4.5)
[2024-07-05] MEDS: ACETAMINOPHEN IV (For NPO) 1,000 MG in EMPTY BAG 1 BAG IVPB ONE (12:48)
[2024-07-05] MEDS: METOCLOPRAMIDE 5 MG/ML 2 ML VIAL IVP SCH (12:49)
--- NOTE | 2024-07-05 13:31 | P.PN ---
Subjective Progress Note Date: 07/05/24 (Small bowel obstruction) Progress note Date of service 07/05/[address] Siegel. Patient seen evaluated [id number] discussed with the patient the planning and her son is with her at the time Today she had persistent nausea and vomiting with the presence of NG tube and distention of the abdomen no flatus no BM. And laboratory reviewed 1. Magnesium 1.2 and started on IV piggyback magnesium 1 g and we will recheck tomorrow her magnesium 2. Her sodium 136 potassium is 4, carbon dioxide 13.7 which is progressively decreasing despite that her GFR 96 and creatinine 0.6. 3. Her diabetes has been fairly well-controlled with the POC glucose 149 and 149. And with the blood drawing this morning 160. 4. White count WBC 9.24 and hemoglobin 12.2 and hematocrit 39.1 has improved and his platelet count 309. 5. Blood pressure persistent hypertension in the spite that has been treated with IV enalapril 2.5 every 6 hour and hydralazine 10 mg every 6 hour as needed still persistent Patient was on beta-kellie and I ordered for her on admission labetalol however was not given because she is on the fourth floor and we will be transferring the patient to the third floor when they have a bed and will be starting the labetalol 5 mg every 6 hour as needed meanwhile we are going also to consult cardiology for persistent hypertension as well patient seen in the past by Dr. Jackson. On exam patient is conscious alert oriented her son at bedside her nausea has been gradually improving, she has NG tube in with suction. Head was normocephalic atraumatic pupil was equal reactive oropharynx negative with the NG tube and she is n.p.o. Neck was supple no JVD no thyromegaly no lymph adenopathy trachea midline Chest is clear to auscultation percussion no shortness of breath Heart regular sinus rhythm patient will be on telemetry on the transfer to third-floor with the consult with the cardiology. Abdomen distended tympanitic and tender with the small bowel obstruction not resolved yet with the recurrent pain Extremities no edema and positive pulses. Neurologically stable with a history of seizure on Keppra with no breakthrough seizure Assessment: And plan Still patient with small bowel obstruction not resolved yet Persistent nausea and vomiting and we added Reglan 10 mg every 6 hour as needed for nausea and vomiting. Dr. Hart started her on the left arm PICC line and started intravenous nutrition with TPN and fat emulsion. We consulted the cardiology as well for the persistent hypertension We changed the labetalol to 5 mg IV slowly every 6 hour and adjusted the dose subsequently. Continue monitoring the patient. Transfer patient to insurance claim auditor floor. Objective - Vital Signs Vital signs: Vital Signs Temp 97.8 F 07/05/24 07:20 Pulse 88 07/05/24 07:20 Resp 16 07/05/24 07:20 BP 170/71 07/05/24 07:20 Pulse Ox 96 07/05/24 07:20 FiO2 Intake & Output 07/04/24 07/05/24 07/05/24 18:59 06:59 18:59 Output Total 400 400 Balance -400 -400 Output: Gastric Drainage 400 400 Other: Voiding Method Toilet Toilet Bedside Commode Bedside Commode Bedside Commode Diaper Diaper Diaper Incontinent # Voids 5 2 1 - Labs CBC & Chem 7: 07/05/24 04:01 07/05/24 04:01 Labs: Abnormal Lab Results - Last 24 Hours (Table) 07/03/24 07/04/24 07/04/24 Range/Units 04:14 16:38 20:35 MCHC (32.0-37.0) g/dL MPV (9.5-12.2) FL Immature Gran # (0.00-0.04) X 10*3/uL Carbon Dioxide (21.6-31.8) mmol/L Anion Gap (4.00-12.00) mmol/L BUN (9.0-27.0) mg/dL BUN/Creatinine Ratio (12.00-20.00) Ratio Glucose (70-110) mg/dL POC Glucose (mg/dL) 120 H 141 H (70-110) mg/dL Calcium (8.7-10.3) mg/dL Magnesium (1.6-2.3) mg/dL NT-Pro-B Natriuret Pep 461 H (0-125) pg/mL 07/05/24 07/05/24 07/05/24 Range/Units 04:01 04:01 05:54 MCHC 31.2 L (32.0-37.0) g/dL MPV 9.2 L (9.5-12.2) FL Immature Gran # 0.11 H (0.00-0.04) X 10*3/uL Carbon Dioxide 13.7 L (21.6-31.8) mmol/L Anion Gap 18.30 H (4.00-12.00) mmol/L BUN 6.0 L (9.0-27.0) mg/dL BUN/Creatinine Ratio 10.00 L (12.00-20.00) Ratio Glucose 160 H (70-110) mg/dL POC Glucose (mg/dL) 149 H (70-110) mg/dL Calcium 8.6 L (8.7-10.3) mg/dL Magnesium (1.6-2.3) mg/dL NT-Pro-B Natriuret Pep (0-125) pg/mL 07/05/24 07/05/24 Range/Units 11:40 12:07 MCHC (32.0-37.0) g/dL MPV (9.5-12.2) FL Immature Gran # (0.00-0.04) X 10*3/uL Carbon Dioxide (21.6-31.8) mmol/L Anion Gap (4.00-12.00) mmol/L BUN (9.0-27.0) mg/dL BUN/Creatinine Ratio (12.00-20.00) Ratio Glucose (70-110) mg/dL POC Glucose (mg/dL) 149 H (70-110) mg/dL Calcium (8.7-10.3) mg/dL Magnesium 1.2 L (1.6-2.3) mg/dL NT-Pro-B Natriuret Pep (0-125) pg/mL
--- NOTE | 2024-07-05 13:51 | XR ---
EXAMINATION TYPE: XR abdomen 2V DATE OF EXAM: 07/05/2024 COMPARISON: 07/03/2020 CLINICAL INDICATION: Female, 69 years old with history of Follow-up obstruction; TECHNIQUE: XR abdomen 2V views of the abdomen. FINDINGS: The osseous structures are intact. The bowel gas pattern is nonspecific. A few scattered prominent s mall bowel loops are seen. Sclerotic density overlying the left inferior pubic ramus which may be artifactual. Moderate hypertro phic arthropathy of the hips correlate femoral impingement. Postsurgical hernia repair suspected. SI joint arthropathy. Degenerative changes spine. NG tube seen in the left quadrant. Surgical clips gall bladder fossa. Generalized demineralization. IMPRESSION: 1. Interval reduction in the degree of distention of small bowel loops in the mid abdomen which could represent an ileus or partial obstruction. Air is seen throughout the colon to the level of the rect um. [facility], , 07/05/2024 1:48 PM
[2024-07-05] MEDS: MAGNESIUM SULFATE-D5W PMX 1 GM in DEXTROSE/WATER 1 100ML.BAG IVPB SCH (13:54)
[2024-07-05] MEDS: LABETALOL 5 MG/ML VIAL MDV IVP PRN ×2 (15:13→18:06)
[2024-07-05] MEDS: MVI, ADULT NO.4 WITH VIT K 10 ML, TRACE (CONC-1ML/DOSE) 1 ML, SODIUM ACETATE 20 MEQ, PO... IV SCH (16:11)
[2024-07-05] MEDS: FAT EMULSION 20% 250 ML in EMPTY BAG 1 BAG IV SCH (16:12)
[2024-07-05 16:24] LABS: Glucose,Whole Blood 154 mg/dL (70-110)
[2024-07-05] MEDS ORDERED: ACETAMINOPHEN IV (For NPO) 1,000 MG in EMPTY BAG 1 BAG IVPB PRN (17:00)
[2024-07-05 20:35] LABS: Glucose,Whole Blood 246 mg/dL (70-110)
[2024-07-05 20:35] LABS: Glucose,Whole Blood 222 mg/dL (70-110)
[2024-07-06 06:16] LABS: Glucose,Whole Blood 247 mg/dL (70-110)
[2024-07-06 06:25] LABS: ALT 37 U/L (4-34); AST 16 U/L (14-36); African American GFR (CKD) >90 (>60 ml/min/1.73 sqM); Albumin 3.6 g/dL (3.5-5.0); Alkaline Phosphatase 258 U/L (38-126); Anion Gap 17 mmol/L; Blood Urea Nitrogen 6 mg/dL (7-17); Calcium 8.6 mg/dL (8.4-10.2); Carbon Dioxide 14 mmol/L (22-30); Chloride 106 mmol/L (98-107); Glucose 240 mg/dL (74-99); Magnesium 1.9 mg/dL (1.6-2.3); Non-African American GFR(CKD) >90 (>60 ml/min/1.73 sqM); Phosphorus 3.1 mg/dL (2.5-4.5); Potassium 3.6 mmol/L (3.5-5.1); Sodium 137 mmol/L (137-145); Total Bilirubin 0.4 mg/dL (0.2-1.3); Total Protein 6.2 g/dL (6.3-8.2)
[2024-07-06] MEDS: cloNIDine 0.2 MG/24HR PATCH TRANSDERM SCH (09:27)
--- NOTE | 2024-07-06 10:35 | P.CRDCN ---
History of Present Illness History of present illness: HISTORY OF PRESENT ILLNESS: This is a 69-year-old female with a past medical history significant for coronary artery disease, hypertension, hyperlipidemia, diabetes, and obesity. Patient follows in the office with Dr. Jackson. We have been asked to see the patient in consultation for hypertension. Patient examined at the bedside. Patient is admitted to the hospital with a partial small bowel obstruction. Patient currently has an NG tube to low intermittent suction and is NPO. She has been followed by general surgery. Patient's blood pressures have been elevated with a systolic blood pressure greater than 170. She is currently prescribed PRN IV Vasotec, IV hydralazine, and IV labetalol. DIAGNOSTICS: - EKG not available at the time of this dictation - Laboratory data: WBC 9.24. Hemoglobin 12.2. Platelet count 309. Sodium 137. Potassium 3.6. BUN 6. Creatinine 0.52. proBNP 461. AST 16. ALT 37. - Current home cardiac medications include Vasotec 20 mg twice a day, Catapres 0.2 mg twice a day, hydralazine 100 mg twice a day, metoprolol tartrate 50 mg 3 times daily, amlodipine 10 mg at night, hydrochlorothiazide 25 mg daily, aspirin 81 mg at night, Lipitor 40 mg at night, Zetia 10 mg at night - Most recent echocardiogram obtained in April 2024 revealed ejection fraction 55 to 60%, mild LVH, mild MR, mild TR - Cardiac catheterization history: March 2024 revealing significant disease in the OM1 with inability to advance the balloon because of severe tortuosity. Moderate disease in LAD and RCA. Dominant right RCA. Medical management was recommended as attempts at PCI were unsuccessful. REVIEW OF SYSTEMS: At the time of my exam: CONSTITUTIONAL: Denies fever or chills. HEENT: Denies blurred vision, vision changes, or eye pain. Denies hemoptysis CARDIOVASCULAR: Denies chest pain. Denies orthopnea. Denies PND. Denies palpitations RESPIRATORY: Denies shortness of breath. GASTROINTESTINAL: Reports abdominal pain. Denies nausea or vomiting. HEMATOLOGIC: Denies bleeding disorders. GENITOURINARY: Denies any blood in urine. SKIN: Denies pruitis. Denies rash. PHYSICAL EXAM: VITAL SIGNS: Reviewed. GENERAL: Well-developed in no acute distress. HEENT: Head is normocephalic. Pupils are equal, round. Sclerae anicteric. Mucous membranes of the mouth are moist. Neck supple. No JVD or thyromegaly LUNGS: Respirations even and unlabored. Lungs essentially clear to auscultation bilaterally. HEART: Regular rate and rhythm. S1 and S2 heard. Systolic murmur noted. ABDOMEN: Soft. Nondistended. Tenderness with palpation. EXTREMITIES: Normal range of motion. No clubbing or cyanosis. Peripheral pulses intact. No lower extremity edema NEUROLOGIC: Awake and alert. Oriented x 3. ASSESSMENT: Partial small bowel obstruction Hypertensive urgency, secondary to inability to take PO medications Coronary artery disease with unsuccessful PCI of the OM, per cath in 03/2024 Known moderate disease of LAD and RCA Hyperlipidemia Diabetes Obesity: BMI 33.8 PLAN: Obtain EKG. Please scan into [employer] when completed. No need to obtain echocardiogram as this was performed in the office in April 2024 Patient is currently NPO and unable to take her antihypertensive medications Add Catapres patch 0.2 mg Continue IV PRN antihypertensive medications while patient is NPO Further recommendations pending patient course Nurse practitioner note has been reviewed by physician. Signing provider agrees with the documented findings, assessment, and plan of care documented by SIGN DESIGNER as a scribe. Past Medical History Past Medical History: Cancer, Diabetes Mellitus, GERD/Reflux, Hyperlipidemia, Hypertension, Osteoarthritis (OA), Pneumonia, Seizure Disorder Additional Past Medical History / Comment(s): breast/colon/ovarian,uterine CA, no bp in rt arm. told she had a brain bleed in 03/2014 "blood clot in back of head". hx of head injury 3rd grade, pt states she has "slow thinking process"and seizures started after injury. -last seizure couple years ago, hx back pain, brain aneurysm 2007, menieres disease. History of Any Multi-Drug Resistant Organisms: None Reported Past Surgical History: Adenoidectomy, Appendectomy, Bladder Surgery, Bowel Resection, Breast Surgery, Section, Cholecystectomy, Hernia Repair, Hysterectomy, Joint Replacement, Orthopedic Surgery, Tonsillectomy Additional Past Surgical History / Comment(s): manpreet. mastectomy , manpreet BREAST BX, MANPREET CATARACT SX, BLADDER SUSPENSION, bowel resection x2 d/t ca, left total knee repl. Past Anesthesia/Blood Transfusion Reactions: Postoperative Nausea & Vomiting (PONV) Past Psychological History: Anxiety, Depression Additional Psychological History / Comment(s): . Smoking Status: Never smoker Past Alcohol Use History: None Reported Past Drug Use History: None Reported - Past Family History Mother Family Medical History: Cancer Father Family Medical History: Cancer Medications and Allergies Home Medications Medication Instructions Recorded Confirmed Type levETIRAcetam [Keppra] 1,000 mg PO BID 12/16/13 07/02/24 History Enalapril [Vasotec] 20 mg PO BID 06/07/21 07/02/24 History Metoprolol Tartrate [Lopressor] 50 mg PO TID 06/07/21 07/02/24 History amLODIPine [Norvasc] 10 mg PO HS 06/07/21 07/02/24 History carBAMazepine [carBAMazepine ER] 600 mg PO BID 11/13/21 07/02/24 History PARoxetine [Paxil] 10 mg PO DAILY 01/18/22 07/02/24 History Insulin Regular, Human [NovoLIN R] See Protocol SQ AC-TID MDD 40 units 06/10/23 07/02/24 History Pioglitazone [Actos] 30 mg PO DAILY 06/10/23 07/02/24 History cloNIDine HCL [Catapres] 0.2 mg PO BID 06/10/23 07/02/24 History glipiZIDE [Glucotrol] 10 mg PO QAM 06/10/23 07/02/24 History Docusate [Colace] 100 mg PO TID PRN 08/26/23 07/02/24 History Aspirin EC [Ecotrin Low Dose] 81 mg PO HS 01/27/24 07/02/24 History hydrALAZINE HCL [Apresoline] 100 mg PO BID 01/27/24 07/02/24 History hydroCHLOROthiazide [Hydrodiuril] 25 mg PO DAILY 01/27/24 07/02/24 History Atorvastatin [Lipitor] 40 mg PO HS 07/02/24 07/02/24 History Ezetimibe [Zetia] 10 mg PO HS 07/02/24 07/02/24 History Allergies Allergy/AdvReac Type Severity Reaction Status Date / Time chlorhexidine Allergy Itching Verified 07/02/24 08:50 Mushroom Allergy Itching Verified 07/02/24 08:50 metformin AdvReac Nausea & Verified 07/02/24 08:50 Vomiting Physical Exam Vitals: Vital Signs Temp Pulse Resp BP BP Pulse Ox 07/06/24 05:47 176/73 07/06/24 05:05 186/79 07/06/24 04:00 97.7 F 83 178/74 07/06/24 01:37 18 07/06/24 00:20 173/61 07/05/24 23:52 74 175/72 07/05/24 20:00 97.9 F 82 18 173/70 07/05/24 18:46 76 179/72 07/05/24 18:11 77 178/76 07/05/24 17:02 197/80 07/05/24 15:42 77 210/84 07/05/24 15:23 73 207/85 07/05/24 15:16 78 201/82 07/05/24 15:00 98.1 F 77 18 215/87 97 07/05/24 08:30 170/72 Intake and Output 07/05/24 07/06/24 07/06/24 22:59 06:59 14:59 Output Total 400 500 Balance -400 -500 Output: Gastric Drainage 400 Oral Regurgitation 500 Other: Voiding Method Bedside Commode Bedside Commode Diaper Diaper Incontinent Incontinent # Voids 1 1 Weight 83.7 kg Results 07/05/24 04:01 07/06/24 05:24 Cardiac Enzymes 07/06/24 Range/Units 05:24 AST 16 (14-36) U/L Coagulation 07/05/24 Range/Units 11:55 PT 10.5 (10.0-12.5) sec CBC 07/05/24 Range/Units 04:01 WBC 9.24 (4.50-10.00) X 10*3/uL RBC 4.34 (4.10-5.20) X 10*6/uL Hgb 12.2 (12.0-15.0) g/dL Hct 39.1 (37.2-46.3) % Plt Count 309 (140-440) X 10*3/uL Comprehensive Metabolic Panel 07/05/24 07/06/24 Range/Units 04:01 05:24 Sodium 136 137 (135-145) mmol/L Potassium 4.0 3.6 (3.5-5.5) mmol/L Chloride 104 106 (96-109) mmol/L Carbon Dioxide 13.7 L 14 L (21.6-31.8) mmol/L BUN 6.0 L 6 L (9.0-27.0) mg/dL Creatinine 0.6 0.52 (0.6-1.5) mg/dL Glucose 160 H 240 H (70-110) mg/dL Calcium 8.6 L 8.6 (8.7-10.3) mg/dL AST 16 (14-36) U/L ALT 37 H (4-34) U/L Alkaline Phosphatase 258 H (38-126) U/L Total Protein 6.2 L (6.3-8.2) g/dL Albumin 3.6 (3.5-5.0) g/dL Current Medications Generic Name Dose Route Start Last Admin Trade Name Freq PRN Reason Stop Dose Admin Enalaprilat 2.5 mg 07/04/24 18:00 07/06/24 05:17 Enalaprilat 1.25 Mg/Ml 1 Ml Vial IVP 2.5 mg Q6HR YESI Administration Hydralazine HCl 20 mg 07/04/24 00:28 07/06/24 05:16 Hydralazine Hcl 20 Mg/Ml 1 Ml Vial IVP 20 mg Q6HR PRN Administration Blood Pressure - High Lactated Ringer's 1,000 mls @ 100 mls/hr 07/02/24 09:45 07/06/24 00:32 Lactated Ringers IV 100 mls/hr .Q10H YESI Administration Acetaminophen 1,000 mg/ IV 100 mls @ 400 mls/hr 07/05/24 17:00 Solution IVPB 07/06/24 16:59 Q6HR PRN Pain Fat Emulsion Intravenous 250 250 mls @ 21 mls/hr 07/05/24 16:00 07/05/24 16:12 ml/ IV Solution IV 21 mls/hr Q72H YESI Administration Parenteral Vitamin Supplement 1,053 mls @ 30 mls/hr 07/05/24 16:00 07/05/24 16:11 10 ml/ Zinc/Copper/Manganese/ IV 07/06/24 15:59 30 mls/hr Selenium 1 ml/ Sodium Acetate .Q24H YESI Administration 20 meq/ Potassium Acetate 30 meq/ Magnesium Sulfate 1 gm/ Calcium Gluconate 1 gm/ Sodium Phosphate 15 mmol/ Amino Acids/Dextrose Parenteral Vitamin Supplement 1,053 mls @ 86 mls/hr 07/06/24 16:00 10 ml/ Zinc/Copper/Manganese/ IV Selenium 1 ml/ Sodium Acetate .BY DURATION YESI 20 meq/ Potassium Acetate 30 meq/ Magnesium Sulfate 1 gm/ Calcium Gluconate 1 gm/ Sodium Phosphate 15 mmol/ Amino Acids/Dextrose Sodium Acetate 20 meq/ 1,042 mls @ 86 mls/hr 07/06/24 16:00 Potassium Acetate 30 meq/ IV Magnesium Sulfate 1 gm/ .BY DURATION YESI Calcium Gluconate 1 gm/ Sodium Phosphate 15 mmol/ Amino Acids/Dextrose Insulin Aspart 2 - 12 unit 07/02/24 12:30 07/06/24 06:27 Insulin Aspart (Novolog) 100 Unit/Ml Vial SQ 4 unit ACHS YESI Administration Protocol Labetalol HCl 10 mg 07/05/24 17:04 07/06/24 06:27 Labetalol 5 Mg/Ml Vial Mdv IVP 10 mg Q6H PRN Administration Blood Pressure - High Levetiracetam 1,000 mg 07/02/24 09:30 07/05/24 22:44 Levetiracetam Iv 500 Mg/5 Ml Vial IVP 1,000 mg Q12HR YESI Administration Lorazepam 0.5 mg 07/03/24 11:02 07/05/24 20:52 Lorazepam 2 Mg/Ml Inj IV 0.5 mg Q6HR PRN Administration Anxiety Metoclopramide HCl 10 mg 07/05/24 12:00 07/06/24 05:16 Metoclopramide 5 Mg/Ml 2 Ml Vial IVP 10 mg Q6HR YESI Administration Morphine Sulfate 4 mg 07/02/24 00:57 07/04/24 17:56 Morphine Sulfate 4 Mg/Ml Syringe IV 4 mg Q4HR PRN Administration Severe Pain (Scale 7 to 10) Naloxone HCl 0.2 mg 07/02/24 00:57 Naloxone 0.4 Mg/Ml 1 Ml Vial IV Q2M PRN Opioid Reversal Ondansetron HCl 4 mg 07/05/24 11:01 Ondansetron 4 Mg/2 Ml Vial IVP Q6HR PRN Nausea And Vomiting Pantoprazole Sodium 40 mg 07/02/24 09:00 07/05/24 08:12 Pantoprazole 40 Mg/10 Ml Vial IV 40 mg DAILY YESI Administration Intake and Output 07/05/24 07/06/24 07/06/24 22:59 06:59 14:59 Output Total 400 500 Balance -400 -500 Output: Gastric Drainage 400 Oral Regurgitation 500 Other: Voiding Method Bedside Commode Bedside Commode Diaper Diaper Incontinent Incontinent # Voids 1 1 Weight 83.7 kg 07/05/24 04:01 07/06/24 05:24
[2024-07-06 11:16] LABS: Glucose,Whole Blood 252 mg/dL (70-110)
--- NOTE | 2024-07-06 13:31 | P.PN ---
Subjective Progress note Date of service 07/06/[address] Siegel. Patient seen [id number] today she is feeling better She had 3 bowel movement And the NG tube has been slipped out while she was in the shower. Consultation with cardiology obtained and they added clonidine patch 0.2. Patient with persistent hypertension and currently her blood pressure still elevated Vital signs today temperature 97.8 F oral, heart rate 89/min, respiratory rate 18, blood pressure 227/77 with a mean pressure 127. Laboratories indicating that is still she had: Dioxide 14 with the mild metabolic acidosis renal function still stable more than 90 and her blood sugar has been fluctuating and she covered with insulin to scale still her ALT 37 and her alkaline phosphatase is 258. Her triglyceride is high 208. And the patient has been infused with Intralipid and TPN and high sugar intake. On the physical examination: Patient is conscious alert her pain is improving and she has a bowel movement. With the underlying small bowel obstruction hopefully will continue to resolve. Physical exam was negative head was normocephalic atraumatic pupil was equal nigel ctive oropharynx natural teeth and no dysphagia neck scratch that Neck was supple no JVD no thyromegaly no lymphadenopathy Chest was clear to auscultate Tatian and percussion and heart was regular sinus rhythm with persistent hypertension could be the effect of the bowel obstruction small bowel obstruction could be reason for elevation. Abdomen still distended positive bowel sounds with high pitch Extremities no edema positive pulses. Neurologically no seizure and no breakthrough seizure. Assessment and plan: 1. Will continue the current planning with the nutritional support through the left arm PICC line. Per order of Dr. Hart 2. Continue monitoring blood pressure 3. Continue cardiology management for adding medication for the hypertension persistent and uncontrolled. Plan: Will continue monitoring the patient and the blood pressure and we will see if cardiology added any more treatment for the patient. Objective - Vital Signs Vital signs: Vital Signs Temp 97.8 F 07/06/24 08:00 Pulse 89 07/06/24 08:00 Resp 18 07/06/24 08:00 BP 227/77 07/06/24 08:00 Pulse Ox 97 07/05/24 15:00 FiO2 Intake & Output 07/05/24 07/06/24 07/06/24 18:59 06:59 18:59 Output Total 400 500 Balance -400 -500 Weight 85.275 kg 83.7 kg Output: Gastric Drainage 400 Oral Regurgitation 500 Other: Voiding Method Bedside Commode Bedside Commode Bedside Commode Diaper Diaper Diaper Incontinent Incontinent Incontinent # Voids 1 1 1 # Bowel Movements 1 - Labs CBC & Chem 7: 07/05/24 04:01 07/06/24 05:24 Labs: Abnormal Lab Results - Last 24 Hours (Table) 07/05/24 07/05/24 07/05/24 Range/Units 16:23 20:31 20:33 Carbon Dioxide (22-30) mmol/L BUN (7-17) mg/dL Glucose (74-99) mg/dL POC Glucose (mg/dL) 154 H 246 H 222 H (70-110) mg/dL ALT (4-34) U/L Alkaline Phosphatase (38-126) U/L Total Protein (6.3-8.2) g/dL Triglycerides (0.00-149.00) mg/dL 07/06/24 07/06/24 07/06/24 Range/Units 05:24 05:24 06:14 Carbon Dioxide 14 L (22-30) mmol/L BUN 6 L (7-17) mg/dL Glucose 240 H (74-99) mg/dL POC Glucose (mg/dL) 247 H (70-110) mg/dL ALT 37 H (4-34) U/L Alkaline Phosphatase 258 H (38-126) U/L Total Protein 6.2 L (6.3-8.2) g/dL Triglycerides 208.00 H (0.00-149.00) mg/dL 07/06/24 Range/Units 11:14 Carbon Dioxide (22-30) mmol/L BUN (7-17) mg/dL Glucose (74-99) mg/dL POC Glucose (mg/dL) 252 H (70-110) mg/dL ALT (4-34) U/L Alkaline Phosphatase (38-126) U/L Total Protein (6.3-8.2) g/dL Triglycerides (0.00-149.00) mg/dL
--- NOTE | 2024-07-06 15:10 | P.PN ---
Subjective Progress Note Date: 07/06/24 SURGICAL PROGRESS NOTE CHIEF COMPLAINT: Partial small bowel obstruction HISTORY OF PRESENT ILLNESS: Patient transferred to the cardiac floor because of high blood pressure. She is being seen by cardiology. They have adjusted her BP meds. Patient reports that her abdominal pain is improving. She still has some pain on the left side but the right side is better. She did have 3 bowel movements 2 bowel movements last night and 1 this morning. The stool was partially formed with liquid. NG tube with 400 mL output. Abdominal x-ray from yesterday reported interval reduction in the degree of distention of small bowel loops in the mid abdomen which could represent ileus or partial obstruction. Shirin hughes accidentally did pull out her NG tube this afternoon. Afebrile. PHYSICAL EXAM: VITAL SIGNS: Reviewed. GENERAL: Well-developed in no acute distress. ABDOMEN: Soft. Decreased abdominal distention. Tenderness on the left side of the abdomen with palpation NEUROLOGIC: Alert and oriented. Cranial nerves II through XII grossly intact. ASSESSMENT: 1. Partial small bowel obstruction PLAN: -Okay to keep NG tube out -Start clear liquid diet -Continue TPN for nutrition support for now -Encourage patient to ambulate Physician Ultrasound Sonographer note has been reviewed by physician. Signing provider agrees with the documented findings, assessment, and plan of care. Objective - Vital Signs Vital signs: Vital Signs Temp 97.8 F 07/06/24 08:00 Pulse 85 07/06/24 12:00 Resp 18 07/06/24 12:00 BP 162/74 07/06/24 14:24 Pulse Ox 97 07/05/24 15:00 FiO2 Intake & Output 07/05/24 07/06/24 07/06/24 18:59 06:59 18:59 Output Total 400 500 Balance -400 -500 Weight 85.275 kg 83.7 kg Output: Gastric Drainage 400 Oral Regurgitation 500 Other: Voiding Method Bedside Commode Bedside Commode Bedside Commode Diaper Diaper Diaper Incontinent Incontinent Incontinent # Voids 1 1 1 # Bowel Movements 1 - Labs CBC & Chem 7: 07/05/24 04:01 07/06/24 05:24 Labs: Abnormal Lab Results - Last 24 Hours (Table) 07/05/24 07/05/24 07/05/24 Range/Units 16:23 20:31 20:33 Carbon Dioxide (22-30) mmol/L BUN (7-17) mg/dL Glucose (74-99) mg/dL POC Glucose (mg/dL) 154 H 246 H 222 H (70-110) mg/dL ALT (4-34) U/L Alkaline Phosphatase (38-126) U/L Total Protein (6.3-8.2) g/dL Triglycerides (0.00-149.00) mg/dL 07/06/24 07/06/24 07/06/24 Range/Units 05:24 05:24 06:14 Carbon Dioxide 14 L (22-30) mmol/L BUN 6 L (7-17) mg/dL Glucose 240 H (74-99) mg/dL POC Glucose (mg/dL) 247 H (70-110) mg/dL ALT 37 H (4-34) U/L Alkaline Phosphatase 258 H (38-126) U/L Total Protein 6.2 L (6.3-8.2) g/dL Triglycerides 208.00 H (0.00-149.00) mg/dL 07/06/24 Range/Units 11:14 Carbon Dioxide (22-30) mmol/L BUN (7-17) mg/dL Glucose (74-99) mg/dL POC Glucose (mg/dL) 252 H (70-110) mg/dL ALT (4-34) U/L Alkaline Phosphatase (38-126) U/L Total Protein (6.3-8.2) g/dL Triglycerides (0.00-149.00) mg/dL
[2024-07-06] MEDS: MAGNESIUM SULFATE-D5W PMX 1 GM in DEXTROSE/WATER 1 100ML.BAG IVPB ONE (15:48)
[2024-07-06 16:40] LABS: Glucose,Whole Blood 216 mg/dL (70-110)
[2024-07-06 19:59] LABS: Glucose,Whole Blood 360 mg/dL (70-110)
[2024-07-07 05:57] LABS: Glucose,Whole Blood 345 mg/dL (70-110)
[2024-07-07 07:44] LABS: African American GFR (CKD) >90 (>60 ml/min/1.73 sqM); Anion Gap 8 mmol/L; Blood Urea Nitrogen 10 mg/dL (7-17); Calcium 8.5 mg/dL (8.4-10.2); Carbon Dioxide 23 mmol/L (22-30); Chloride 105 mmol/L (98-107); Glucose 319 mg/dL (74-99); Magnesium 1.7 mg/dL (1.6-2.3); Non-African American GFR(CKD) >90 (>60 ml/min/1.73 sqM); Phosphorus 3.1 mg/dL (2.5-4.5); Potassium 3.3 mmol/L (3.5-5.1); Sodium 136 mmol/L (137-145)
[2024-07-07 08:21] LABS: Glucose,Whole Blood 585 mg/dL (70-110)
[2024-07-07] MEDS: INSULIN ASPART (NovoLOG) 100 UNIT/ML VIAL SQ ONE (08:53)
[2024-07-07 09:52] LABS: Glucose,Whole Blood 474 mg/dL (70-110)
[2024-07-07] MEDS: MAGNESIUM SULFATE-D5W PMX 1 GM in DEXTROSE/WATER 1 100ML.BAG IVPB ONE (09:56)
[2024-07-07] MEDS: POTASSIUM CHLORIDE 20 MEQ in WATER FOR INJECTION 1 100ML.BAG IVPB SCH (10:00)
[2024-07-07 10:56] LABS: Glucose,Whole Blood 347 mg/dL (70-110)
--- NOTE | 2024-07-07 11:24 | P.PN ---
Subjective Progress Note Date: 07/07/24 Principal diagnosis: Small bowel obstruction Patient feels well today. Her blood sugars were quite high and for that reason her TPN was stopped. She is having liquid stools. No abdominal pain or cramps. No bloating. Tolerating liquids. Objective - Vital Signs Vital signs: Vital Signs Temp 98.2 F 07/07/24 08:00 Pulse 86 07/07/24 08:00 Resp 18 07/07/24 08:00 BP 193/83 07/07/24 08:00 Pulse Ox 99 07/07/24 08:00 FiO2 Intake & Output 07/06/24 07/07/24 07/07/24 18:59 06:59 18:59 Intake Total 400 400 250 Output Total 1 Balance 400 399 250 Weight 84.4 kg 84.4 kg Intake: Oral 400 400 250 Output: Urine 1 Other: Voiding Method Bedside Commode Toilet Toilet Diaper Diaper Diaper Incontinent Incontinent Incontinent # Voids 1 # Bowel Movements 1 - Exam Abdomen: Soft, nontender, nondistended - Labs CBC & Chem 7: 07/05/24 04:01 07/07/24 06:21 Labs: Abnormal Lab Results - Last 24 Hours (Table) 07/06/24 07/06/24 07/07/24 Range/Units 16:38 19:57 05:55 Sodium (137-145) mmol/L Potassium (3.5-5.1) mmol/L Creatinine (0.52-1.04) mg/dL Glucose (74-99) mg/dL POC Glucose (mg/dL) 216 H 360 H 345 H (70-110) mg/dL 07/07/24 07/07/24 07/07/24 Range/Units 06:21 08:20 09:50 Sodium 136 L (137-145) mmol/L Potassium 3.3 L (3.5-5.1) mmol/L Creatinine 0.45 L (0.52-1.04) mg/dL Glucose 319 H (74-99) mg/dL POC Glucose (mg/dL) 585 H* 474 H (70-110) mg/dL 07/07/24 Range/Units 10:55 Sodium (137-145) mmol/L Potassium (3.5-5.1) mmol/L Creatinine (0.52-1.04) mg/dL Glucose (74-99) mg/dL POC Glucose (mg/dL) 347 H (70-110) mg/dL Assessment and Plan (1) Partial small bowel obstruction Narrative/Plan: Patient doing well today. Advance to full liquid diet. May discharge on full liquids if tolerates with plans for slow diet advancement after discharge. Instructed patient to return to the hospital if she has any complaints of nausea vomiting pain or obstipation. Current Visit: Yes Status: Acute Code(s): K56.600 - PARTIAL INTESTINAL OBSTRUCTION, UNSPECIFIED TO CAUSE SNOMED Code(s): 233368941
--- NOTE | 2024-07-07 11:44 | P.PN ---
Subjective HISTORY OF PRESENT ILLNESS: This is a 69-year-old female with a past medical history significant for coronary artery disease, hypertension, hyperlipidemia, diabetes, and obesity. Patient follows in the office with Dr. Jackson. We have been asked to see the patient in consultation for hypertension. Patient examined at the bedside. Patient is admitted to the hospital with a partial small bowel obstruction. Patient currently has an NG tube to low intermittent suction and is NPO. She has been followed by general surgery. Patient's blood pressures have been elevated with a systolic blood pressure greater than 170. She is currently prescribed PRN IV Vasotec, IV hydralazine, and IV labetalol. DIAGNOSTICS: - EKG not available at the time of this dictation - Laboratory data: WBC 9.24. Hemoglobin 12.2. Platelet count 309. Sodium 137. Potassium 3.6. BUN 6. Creatinine 0.52. proBNP 461. AST 16. ALT 37. - Current home cardiac medications include Vasotec 20 mg twice a day, Catapres 0.2 mg twice a day, hydralazine 100 mg twice a day, metoprolol tartrate 50 mg 3 times daily, amlodipine 10 mg at night, hydrochlorothiazide 25 mg daily, aspirin 81 mg at night, Lipitor 40 mg at night, Zetia 10 mg at night - Most recent echocardiogram obtained in April 2024 revealed ejection fraction 55 to 60%, mild LVH, mild MR, mild TR - Cardiac catheterization history: March 2024 revealing significant disease in the OM1 with inability to advance the balloon because of severe tortuosity. Moderate disease in LAD and RCA. Dominant right RCA. Medical management was recommended as attempts at PCI were unsuccessful. 07/07/2024 Patient examined this morning the bedside. Patient currently denies chest pain or pressure. She denies shortness of breath. Patient's NG tube has been removed and she was started on clear liquid diet. She is tolerating well. Blood pressures overnight were in the 160s. Blood pressure this morning 193/83. PHYSICAL EXAM: VITAL SIGNS: Reviewed. GENERAL: Well-developed in no acute distress. HEENT: Head is normocephalic. Pupils are equal, round. Sclerae anicteric. Mucous membranes of the mouth are moist. Neck supple. No JVD or thyromegaly LUNGS: Respirations even and unlabored. Lungs essentially clear to auscultation bilaterally. HEART: Regular rate and rhythm. S1 and S2 heard. Systolic murmur noted. ABDOMEN: Soft. Nondistended. Tenderness with palpation. EXTREMITIES: Normal range of motion. No clubbing or cyanosis. Peripheral pulses intact. No lower extremity edema NEUROLOGIC: Awake and alert. Oriented x 3. ASSESSMENT: Partial small bowel obstruction Hypertensive urgency, secondary to inability to take PO medications Coronary artery disease with unsuccessful PCI of the OM, per cath in 03/2024 Known moderate disease of LAD and RCA Hyperlipidemia Diabetes Obesity: BMI 33.8 PLAN: No need to obtain echocardiogram as this was performed in the office in April 2024 Continue clonidine patch Slowly reintroduce home antihypertensive medications. Resume amlodipine and metoprolol today. If patient continues to tolerate oral diet, will resume additional antihypertensive medications tomorrow Further recommendations pending patient course Nurse practitioner note has been reviewed by physician. Signing provider agrees with the documented findings, assessment, and plan of care documented by MESSENGER FLOORPERSON as a scribe. Objective - Vital Signs Vital signs: Vital Signs Temp 98.2 F 07/07/24 08:00 Pulse 86 07/07/24 08:00 Resp 18 07/07/24 08:00 BP 193/83 07/07/24 08:00 Pulse Ox 99 07/07/24 08:00 FiO2 Intake & Output 07/06/24 07/07/24 07/07/24 18:59 06:59 18:59 Intake Total 400 400 250 Output Total 1 Balance 400 399 250 Weight 84.4 kg 84.4 kg Intake: Oral 400 400 250 Output: Urine 1 Other: Voiding Method Bedside Commode Toilet Toilet Diaper Diaper Diaper Incontinent Incontinent Incontinent # Voids 1 # Bowel Movements 1 - Labs CBC & Chem 7: 07/05/24 04:01 07/07/24 06:21 Labs: Abnormal Lab Results - Last 24 Hours (Table) 07/06/24 07/06/24 07/07/24 Range/Units 16:38 19:57 05:55 Sodium (137-145) mmol/L Potassium (3.5-5.1) mmol/L Creatinine (0.52-1.04) mg/dL Glucose (74-99) mg/dL POC Glucose (mg/dL) 216 H 360 H 345 H (70-110) mg/dL 07/07/24 07/07/24 07/07/24 Range/Units 06:21 08:20 09:50 Sodium 136 L (137-145) mmol/L Potassium 3.3 L (3.5-5.1) mmol/L Creatinine 0.45 L (0.52-1.04) mg/dL Glucose 319 H (74-99) mg/dL POC Glucose (mg/dL) 585 H* 474 H (70-110) mg/dL 07/07/24 Range/Units 10:55 Sodium (137-145) mmol/L Potassium (3.5-5.1) mmol/L Creatinine (0.52-1.04) mg/dL Glucose (74-99) mg/dL POC Glucose (mg/dL) 347 H (70-110) mg/dL
[2024-07-07] MEDS: amLODIPine 10 MG TAB PO SCH (11:58)
[2024-07-07] MEDS: METOPROLOL TARTRATE 50 MG TAB PO SCH (11:58)
--- NOTE | 2024-07-07 13:43 | P.PN ---
Subjective Progress Note Date: 07/07/24 Progress note D[address]ation by Dr. Siegel Date of service 07/07/2024 Patient seen and evaluated at bedside [id number] Received call during the night from Chan indicating the nurse her blood sugar is elevated because of the TPN and Intralipid We adjusted the insulin and give extra dose and subsequently they called Dr. Hart who ordered the TPN and Intralipid through the left arm PICC line and sub sequently the blood sugar has been improving and covered with insulin to scale. In regard of hypertension she is on all IV medication and her last today blood pressure was 193/83 with a mean blood pressure 119. Subsequently blood pressure down to 144/72 with a mean 96 Pulse ox 98%, temperature 97.9 F oral, her heart rate 80/min and respiratory rate 18/min In regard of her small bowel obstruction she started to have bowel movement however it is watery and mushy no full bowel movement. She started on last yesterday to clear liquid diet and today started on full liquid diet. There is no full bowel movement at this time as well as she still have mild distention however improved and tenderness in the lower abdomen. In regard of hypertension and the use of oral antihypertensive medication which is multiple and we are not sure yet that the bowel is opened with the probability of with the use of multiple pills" some obstruction in the small bowel we will hold on oral medication until patient had respected bowel movement. In regard of the follow-up with Dr. Hart he will be out of the weekend and Dr. Torres will be covering him for the underlying thanks given holiday. Laboratories: Sodium 136, potassium 3.3, chloride 105, carbon dioxide 23 which is corrected which was yesterday on the 1125 14 millimole per liter without adding sodium bicarb as the patient has been on lactated Ringer which pharmacy stated that send compatible. Her potassium and magnesium has been covered and supplemented. On the physical exam: Very pleasant conscious alert able to communicate freely, no NG tube, and she had this morning was very mushy BM. HEENT negative Neck was supple no JVD no thyromegaly no lymphadenopathy. Chest is clear no wheezes no rhonchi's Heart was regular sinus rhythm with a history of coronary artery disease. As mentioned by Dr. CHARY White on the consulting report Abdomen distention has been improving, she has tenderness in the lower abdomen and positive bowel sound Extremities no edema positive pulses. Neurologically stable Psychiatry stable No seizure breakthrough. Assessment: 1. Small bowel obstruction, with the finding of resolution gradually appear however is not completely resolved 2. Hypertension with hypertensive heart disease with the persistent hyper tension 3. History of seizure disorder not present on this admission 4. History of hyperlipidemia. 5. History of diabetes mellitus type 2 currently on insulin to scale with the spikes of the blood sugar was due to the TPN and Intralipid which has been discontinued this morning Plan: 1. Gradual resolution of the small bowel obstruction however still abdominal pain 2. Multiple surgical of the abdomen with the possible adhesion. 3. Hypertension with persistent hypertension with the underlying hypertensive heart disease and atherosclerotic heart disease 4. When the patient started to eat regular diet with no complication at that time we will be restarting her medication to avoid recurrent small bowel obstruction if this completely resolved 5. Obtaining lab tomorrow to check on the potassium and magnesium and renal function and anemia. Objective - Vital Signs Vital signs: Vital Signs Temp 97.9 F 07/07/24 12:00 Pulse 80 07/07/24 12:00 Resp 18 07/07/24 12:00 BP 144/72 07/07/24 12:00 Pulse Ox 98 07/07/24 12:00 FiO2 Intake & Output 07/06/24 07/07/24 07/07/24 18:59 06:59 18:59 Intake Total 400 400 250 Output Total 1 Balance 400 399 250 Weight 84.4 kg 84.4 kg Intake: Oral 400 400 250 Output: Urine 1 Other: Voiding Method Bedside Commode Toilet Toilet Diaper Diaper Diaper Incontinent Incontinent Incontinent # Voids 1 4 # Bowel Movements 1 - Labs CBC & Chem 7: 07/05/24 04:01 07/07/24 06:21 Labs: Abnormal Lab Results - Last 24 Hours (Table) 07/06/24 07/06/24 07/07/24 Range/Units 16:38 19:57 05:55 Sodium (137-145) mmol/L Potassium (3.5-5.1) mmol/L Creatinine (0.52-1.04) mg/dL Glucose (74-99) mg/dL POC Glucose (mg/dL) 216 H 360 H 345 H (70-110) mg/dL 07/07/24 07/07/24 07/07/24 Range/Units 06:21 08:20 09:50 Sodium 136 L (137-145) mmol/L Potassium 3.3 L (3.5-5.1) mmol/L Creatinine 0.45 L (0.52-1.04) mg/dL Glucose 319 H (74-99) mg/dL POC Glucose (mg/dL) 585 H* 474 H (70-110) mg/dL 07/07/24 Range/Units 10:55 Sodium (137-145) mmol/L Potassium (3.5-5.1) mmol/L Creatinine (0.52-1.04) mg/dL Glucose (74-99) mg/dL POC Glucose (mg/dL) 347 H (70-110) mg/dL
[2024-07-07 16:31] LABS: Glucose,Whole Blood 322 mg/dL (70-110)
[2024-07-07 19:59] LABS: Glucose,Whole Blood 274 mg/dL (70-110)
[2024-07-07] MEDS: ATORVASTATIN 40 MG TAB PO SCH (21:40)
[2024-07-07] MEDS: ASPIRIN 81 MG PO SCH (21:40)
[2024-07-07] MEDS: EZETIMIBE 10 MG TAB PO SCH (21:40)
[2024-07-08 06:04] LABS: Glucose,Whole Blood 231 mg/dL (70-110)
[2024-07-08 10:59] LABS: African American GFR (CKD) >90 (>60 ml/min/1.73 sqM); Anion Gap 11 mmol/L; Blood Urea Nitrogen 8 mg/dL (7-17); Calcium 8.6 mg/dL (8.4-10.2); Carbon Dioxide 21 mmol/L (22-30); Chloride 105 mmol/L (98-107); Glucose 361 mg/dL (74-99); Non-African American GFR(CKD) >90 (>60 ml/min/1.73 sqM); Phosphorus 3.4 mg/dL (2.5-4.5); Sodium 137 mmol/L (137-145)
[2024-07-08 11:03] LABS: Magnesium 1.4 mg/dL (1.6-2.3); Potassium 5.1 mmol/L (3.5-5.1)
[2024-07-08 11:25] LABS: Glucose,Whole Blood 297 mg/dL (70-110)
[2024-07-08] MEDS: cloNIDine HCL 0.2 MG TAB PO SCH (12:06)
[2024-07-08] MEDS: lisinopriL 20 MG TAB PO SCH ×2 (12:06→21:17)
[2024-07-08] MEDS: MAGNESIUM SULFATE-D5W PMX 1 GM in DEXTROSE/WATER 1 100ML.BAG IVPB SCH (12:07)
[2024-07-08] MEDS: hydrALAZINE HCL 50 MG TAB PO SCH (12:07)
[2024-07-08 12:51] LABS: Basophils % (A) 1 %; Eosinophils # (A) 0.2 k/uL (0-0.7); Eosinophils % (A) 3 %; HCT 36.7 % (34.0-46.0); HGB 11.8 gm/dL (11.4-16.0); Lymphocytes # (A) 1.8 k/uL (1.0-4.8); Lymphocytes % (A) 30 %; MCH 28.3 pg (25.0-35.0); MCV 88.4 fL (80.0-100.0); Mean Platelet Volume 7.3; Monocytes # (A) 0.4 k/uL (0-1.0); Monocytes % (A) 7 %; Neutrophils # (A) 3.5 k/uL (1.3-7.7); Neutrophils % (A) 59 %; Platelet Count 330 k/uL (150-450); RBC 4.16 m/uL (3.80-5.40); RDW 13.7 % (11.5-15.5)
--- NOTE | 2024-07-08 13:24 | P.PN ---
Subjective Progress Note Date: 07/08/24 Progress note Date of service 07/08/[address] Siegel. Patient seen and evaluated [id number] and discussed with her the plan of care. Patient admitted with acute small bowel obstruction and she has been treated symptomatically. Patient started to have resolution with the bowel movement however it is watery mushy, no formed stool. On the abdominal exam she had minimal discomfort on the lower abdomen. And currently her medication has been changed to oral Her blood pressure still on the hypertensive side but improved. Her laboratory today indicating that her white count 6, hemoglobin 11.8, hematocrit 36.7. Chemistry: She is sodium 137, potassium 5.1, carbon dioxide 21, her creatinine 0.48, GFR 4 non- more than 90 POC glucose has been fluctuating and last 297. Magnesium 1.4 and supplemented with IV magnesium 2 g. Will be starting her oral medication as well as antidiabetic medication as well. On the exam: Temperature 98.1 pulse 65 respiratory rate 16 and blood pressure 1 65/74 with a mean 104 prior to that her blood pressure 181/76 still continue to be monitored, pulse ox 98%. On the examination: She feeling much better able to go to the bathroom with the watery stools. Head was normocephalic atraumatic pupil was equal reactive conjunctiva was pink sclera was nonicteric. Neck was supple no JVD no thyromegaly no lymphadenopathy Chest was clear to auscultation percussion no wheezes no rhonchi's. Heart was regular sinus rhythm no dysrhythmia. Abdomen mildly distended positive bowel sound and tenderness on the lower abdomen with deep palpation. Extremities no edema and positive pulses Neurologically: No seizure disorder breakthrough and she is on Keppra and will switch it to oral Keppra now. In regard of psychiatry stable insight and mood. Assessment: 1. Acute small bowel obstruction with gradual resolution 2. Persistent hypertension 3. Hypertension with hypertensive heart disease 4. Seizure disorder 5. Hyperlipidemia with history of coronary artery disease. Plan: 1. Waiting for the surgical evaluation and future clearance for discharge 2. Continue controlling her blood pressure and resuming her gradually her medication. 3. Renal function is stable. Objective - Vital Signs Vital signs: Vital Signs Temp 98.1 F 07/08/24 08:00 Pulse 65 07/08/24 11:59 Resp 16 07/08/24 11:59 BP 165/74 07/08/24 11:59 Pulse Ox 98 07/08/24 11:59 FiO2 Intake & Output 07/07/24 07/08/24 07/08/24 18:59 06:59 18:59 Intake Total 650 120 240 Balance 650 120 240 Weight 84.4 kg 84.5 kg Intake: Oral 650 120 240 Other: Voiding Method Toilet Toilet Toilet Diaper Diaper Diaper Incontinent Incontinent Incontinent # Voids 3 1 2 # Bowel Movements 1 1 - Labs CBC & Chem 7: 07/08/24 12:34 07/08/24 10:16 Labs: Abnormal Lab Results - Last 24 Hours (Table) 07/07/24 07/07/24 07/08/24 Range/Units 16:30 19:57 06:03 Carbon Dioxide (22-30) mmol/L Creatinine (0.52-1.04) mg/dL Glucose (74-99) mg/dL POC Glucose (mg/dL) 322 H 274 H 231 H (70-110) mg/dL Magnesium (1.6-2.3) mg/dL 07/08/24 07/08/24 Range/Units 10:16 11:23 Carbon Dioxide 21 L (22-30) mmol/L Creatinine 0.48 L (0.52-1.04) mg/dL Glucose 361 H (74-99) mg/dL POC Glucose (mg/dL) 297 H (70-110) mg/dL Magnesium 1.4 L (1.6-2.3) mg/dL
--- NOTE | 2024-07-08 13:35 | P.PN ---
Subjective HISTORY OF PRESENT ILLNESS: This is a 69-year-old female with a past medical history significant for coronary artery disease, hypertension, hyperlipidemia, diabetes, and obesity. Patient follows in the office with Dr. Jackson. We have been asked to see the patient in consultation for hypertension. Patient examined at the bedside. Patient is admitted to the hospital with a partial small bowel obstruction. Patient currently has an NG tube to low intermittent suction and is NPO. She has been followed by general surgery. Patient's blood pressures have been elevated with a systolic blood pressure greater than 170. She is currently prescribed PRN IV Vasotec, IV hydralazine, and IV labetalol. DIAGNOSTICS: - EKG not available at the time of this dictation - Laboratory data: WBC 9.24. Hemoglobin 12.2. Platelet count 309. Sodium 137. Potassium 3.6. BUN 6. Creatinine 0.52. proBNP 461. AST 16. ALT 37. - Current home cardiac medications include Vasotec 20 mg twice a day, Catapres 0.2 mg twice a day, hydralazine 100 mg twice a day, metoprolol tartrate 50 mg 3 times daily, amlodipine 10 mg at night, hydrochlorothiazide 25 mg daily, aspirin 81 mg at night, Lipitor 40 mg at night, Zetia 10 mg at night - Most recent echocardiogram obtained in April 2024 revealed ejection fraction 55 to 60%, mild LVH, mild MR, mild TR - Cardiac catheterization history: March 2024 revealing significant disease in the OM1 with inability to advance the balloon because of severe tortuosity. Moderate disease in LAD and RCA. Dominant right RCA. Medical management was recommended as attempts at PCI were unsuccessful. 07/07/2024 Patient examined this morning the bedside. Patient currently denies chest pain or pressure. She denies shortness of breath. Patient's NG tube has been removed and she was started on clear liquid diet. She is tolerating well. Blood pressures overnight were in the 160s. Blood pressure this morning 193/83. 07/08/2024 Patient examined this morning. She is sitting up in the chair. Patient denies chest pain or pressure. She denies shortness of breath. She is tolerating oral diet. Blood pressures remain elevated with systolics range between [id number]. PHYSICAL EXAM: VITAL SIGNS: Reviewed. GENERAL: Well-developed in no acute distress. HEENT: Head is normocephalic. Pupils are equal, round. Sclerae anicteric. Mucous membranes of the mouth are moist. Neck supple. No JVD or thyromegaly LUNGS: Respirations even and unlabored. Lungs essentially clear to auscultation bilaterally. HEART: Regular rate and rhythm. S1 and S2 heard. Systolic murmur noted. ABDOMEN: Soft. Nondistended. Tenderness with palpation. EXTREMITIES: Normal range of motion. No clubbing or cyanosis. Peripheral pulses intact. No lower extremity edema NEUROLOGIC: Awake and alert. Oriented x 3. ASSESSMENT: Partial small bowel obstruction Hypertensive urgency, secondary to inability to take PO medications Coronary artery disease with unsuccessful PCI of the OM, per cath in 03/2024 Known moderate disease of LAD and RCA Hyperlipidemia Diabetes Obesity: BMI 33.8 PLAN: No need to obtain echocardiogram as this was performed in the office in April 2024 Discontinue clonidine patch. Resume oral clonidine Amlodipine and metoprolol resumed yesterday Resume hydralazine and lisinopril today Continue to monitor blood pressure Patient is stable for discharge from a cardiac standpoint Further recommendations pending patient course Nurse practitioner note has been reviewed by physician. Signing provider agrees with the documented findings, assessment, and plan of care documented by LOG RIDER as a scribe. Objective - Vital Signs Vital signs: Vital Signs Temp 98.1 F 07/08/24 08:00 Pulse 65 07/08/24 11:59 Resp 16 07/08/24 11:59 BP 165/74 07/08/24 11:59 Pulse Ox 98 07/08/24 11:59 FiO2 Intake & Output 07/07/24 07/08/24 07/08/24 18:59 06:59 18:59 Intake Total 650 120 240 Balance 650 120 240 Weight 84.4 kg 84.5 kg Intake: Oral 650 120 240 Other: Voiding Method Toilet Toilet Toilet Diaper Diaper Diaper Incontinent Incontinent Incontinent # Voids 3 1 2 # Bowel Movements 1 1 - Labs CBC & Chem 7: 07/08/24 12:34 07/08/24 10:16 Labs: Abnormal Lab Results - Last 24 Hours (Table) 07/07/24 07/07/24 07/08/24 Range/Units 16:30 19:57 06:03 Carbon Dioxide (22-30) mmol/L Creatinine (0.52-1.04) mg/dL Glucose (74-99) mg/dL POC Glucose (mg/dL) 322 H 274 H 231 H (70-110) mg/dL Magnesium (1.6-2.3) mg/dL 07/08/24 07/08/24 Range/Units 10:16 11:23 Carbon Dioxide 21 L (22-30) mmol/L Creatinine 0.48 L (0.52-1.04) mg/dL Glucose 361 H (74-99) mg/dL POC Glucose (mg/dL) 297 H (70-110) mg/dL Magnesium 1.4 L (1.6-2.3) mg/dL
--- NOTE | 2024-07-08 13:48 | P.PN ---
Subjective Progress Note Date: 07/08/24 CHIEF COMPLAINT: Bowel obstruction HISTORY OF PRESENT ILLNESS: The patient is a 69-year-old female with frozen abdomen including bowel obstruction. She is on TPN. She reports getting sick and tired of full liquid diet as she does not like ice cream. She reports elevated blood sugars as a result of sugary beverages and meals. ROS: No fevers or chills. No new chest pain. PHYSICAL EXAM: VITAL SIGNS: Reviewed CONSTITUTIONAL: Well developed and in no acute distress. EYES: Conjuctivae without sclera icterus. Extraocular movements grossly intact. HEAD, EARS, NOSE, THROAT: Moist buccal mucosa. Head is atraumatic, normocephalic. Hears conversational speech. No nasal drainage. RESPIRATORY: Non-labored respirations and equal bilateral excursions. CARDIOVASCULAR: Palpable 2+ radial pulses. ABDOMEN: Nontender, obese MUSCULOSKELETAL: No gross deformity of the lower extremities noted. No clubbing. No cyanosis. SKIN: Good skin turgor. Well perfused. NEUROLOGIC: Cranial nerves II through XII grossly intact. No focal or lateralizing signs. PSYCH: Appropriate affect. Alert and oriented to person, place and time. CLINICAL LABS: Reviewed. WBC normal. ASSESSMENT: 1. Small bowel obstruction due to adhesions. 2. Obesity due to excess calories, BMI 34.1 PLAN: 1. Clinically, patient reports she is tolerating full liquid diet and requesting advancement of her diet. 2. Will do trial of low fiber diet 3. Monitor blood sugars Objective - Vital Signs Vital signs: Vital Signs Temp 98.1 F 07/08/24 08:00 Pulse 65 07/08/24 11:59 Resp 16 07/08/24 11:59 BP 165/74 07/08/24 11:59 Pulse Ox 98 07/08/24 11:59 FiO2 Intake & Output 07/07/24 07/08/24 07/08/24 18:59 06:59 18:59 Intake Total 650 120 240 Balance 650 120 240 Weight 84.4 kg 84.5 kg Intake: Oral 650 120 240 Other: Voiding Method Toilet Toilet Toilet Diaper Diaper Diaper Incontinent Incontinent Incontinent # Voids 3 1 2 # Bowel Movements 1 1 - Labs CBC & Chem 7: 07/08/24 12:34 07/08/24 10:16 Labs: Abnormal Lab Results - Last 24 Hours (Table) 07/07/24 07/07/24 07/08/24 Range/Units 16:30 19:57 06:03 Carbon Dioxide (22-30) mmol/L Creatinine (0.52-1.04) mg/dL Glucose (74-99) mg/dL POC Glucose (mg/dL) 322 H 274 H 231 H (70-110) mg/dL Magnesium (1.6-2.3) mg/dL 07/08/24 07/08/24 Range/Units 10:16 11:23 Carbon Dioxide 21 L (22-30) mmol/L Creatinine 0.48 L (0.52-1.04) mg/dL Glucose 361 H (74-99) mg/dL POC Glucose (mg/dL) 297 H (70-110) mg/dL Magnesium 1.4 L (1.6-2.3) mg/dL
[2024-07-08 16:26] LABS: Glucose,Whole Blood 292 mg/dL (70-110)
[2024-07-08 19:52] LABS: Glucose,Whole Blood 240 mg/dL (70-110)
[2024-07-08] MEDS: levETIRAcetam 500 MG TAB PO SCH (21:17)
[2024-07-09 05:48] LABS: Glucose,Whole Blood 249 mg/dL (70-110)
--- NOTE | 2024-07-09 11:16 | P.PN ---
Subjective HISTORY OF PRESENT ILLNESS: This is a 69-year-old female with a past medical history significant for coronary artery disease, hypertension, hyperlipidemia, diabetes, and obesity. Patient follows in the office with Dr. Jackson. We have been asked to see the patient in consultation for hypertension. Patient examined at the bedside. Patient is admitted to the hospital with a partial small bowel obstruction. Patient currently has an NG tube to low intermittent suction and is NPO. She has been followed by general surgery. Patient's blood pressures have been elevated with a systolic blood pressure greater than 170. She is currently prescribed PRN IV Vasotec, IV hydralazine, and IV labetalol. DIAGNOSTICS: - EKG not available at the time of this dictation - Laboratory data: WBC 9.24. Hemoglobin 12.2. Platelet count 309. Sodium 137. Potassium 3.6. BUN 6. Creatinine 0.52. proBNP 461. AST 16. ALT 37. - Current home cardiac medications include Vasotec 20 mg twice a day, Catapres 0.2 mg twice a day, hydralazine 100 mg twice a day, metoprolol tartrate 50 mg 3 times daily, amlodipine 10 mg at night, hydrochlorothiazide 25 mg daily, aspirin 81 mg at night, Lipitor 40 mg at night, Zetia 10 mg at night - Most recent echocardiogram obtained in April 2024 revealed ejection fraction 55 to 60%, mild LVH, mild MR, mild TR - Cardiac catheterization history: March 2024 revealing significant disease in the OM1 with inability to advance the balloon because of severe tortuosity. Moderate disease in LAD and RCA. Dominant right RCA. Medical management was recommended as attempts at PCI were unsuccessful. 07/07/2024 Patient examined this morning the bedside. Patient currently denies chest pain or pressure. She denies shortness of breath. Patient's NG tube has been removed and she was started on clear liquid diet. She is tolerating well. Blood pressures overnight were in the 160s. Blood pressure this morning 193/83. 07/08/2024 Patient examined this morning. She is sitting up in the chair. Patient denies chest pain or pressure. She denies shortness of breath. She is tolerating oral diet. Blood pressures remain elevated with systolics range between [id number]. 07/09/2024 Patient examined this morning. She is sitting up in the chair. Patient denies chest pain or pressure. She denies shortness of breath. She is tolerating full liquid diet. She denies passing any flatus or having a bowel movement today. Blood pressure is stable with a recent reading of 122/56. PHYSICAL EXAM: VITAL SIGNS: Reviewed. GENERAL: Well-developed in no acute distress. HEENT: Head is normocephalic. Pupils are equal, round. Sclerae anicteric. Mucous membranes of the mouth are moist. Neck supple. No JVD or thyromegaly LUNGS: Respirations even and unlabored. Lungs essentially clear to auscultation bilaterally. HEART: Regular rate and rhythm. S1 and S2 heard. Systolic murmur noted. ABDOMEN: Soft. Nondistended. Nontender EXTREMITIES: Normal range of motion. No clubbing or cyanosis. Peripheral pulses intact. No lower extremity edema NEUROLOGIC: Awake and alert. Oriented x 3. ASSESSMENT: Partial small bowel obstruction Hypertensive urgency, secondary to inability to take PO medications, resolved Coronary artery disease with unsuccessful PCI of the OM, per cath in 03/2024 Known moderate disease of LAD and RCA Hyperlipidemia Diabetes Obesity: BMI 33.8 PLAN: No need to obtain echocardiogram as this was performed in the office in April 2024 Continue current cardiac medications Continue to monitor blood pressure Patient is stable for discharge from a cardiac standpoint We will sign off Nurse practitioner note has been reviewed by physician. Signing provider agrees with the documented findings, assessment, and plan of care documented by ENGINEERING SUPERVISOR as a scribe. Objective - Vital Signs Vital signs: Vital Signs Temp 97.6 F 07/09/24 08:00 Pulse 60 07/09/24 08:00 Resp 18 07/09/24 08:00 BP 157/78 07/09/24 08:00 Pulse Ox 96 07/09/24 08:00 FiO2 Intake & Output 07/08/24 07/09/24 07/09/24 18:59 06:59 18:59 Intake Total 510 1080 236 Balance 510 1080 236 Weight 60 kg Intake: Oral 510 1080 236 Other: Voiding Method Toilet Toilet Toilet Diaper Diaper Diaper Incontinent Incontinent Incontinent # Voids 2 2 # Bowel Movements 1 - Labs CBC & Chem 7: 07/08/24 12:34 07/08/24 10:16 Labs: Abnormal Lab Results - Last 24 Hours (Table) 07/08/24 07/08/24 07/08/24 Range/Units 11:23 16:24 19:51 POC Glucose (mg/dL) 297 H 292 H 240 H (70-110) mg/dL 07/09/24 Range/Units 05:47 POC Glucose (mg/dL) 249 H (70-110) mg/dL
[2024-07-09 11:17] LABS: Glucose,Whole Blood 285 mg/dL (70-110)
[2024-07-09] MEDS: DAPAGLIFLOZIN PROPANEDIOL 10 MG TABLET PO SCH (12:54)
--- NOTE | 2024-07-09 13:01 | P.PN ---
Subjective Progress Note Date: 07/09/24 Progress note Date of service 07/09/2024. Patient seen and evaluated discussed with the patient Patient feeling better and started on regular diet for trial by Dr. Torres who is covering for Dr. Hart Patient feels no pain but today no bowel movement yet and no passing gases she had minimal breakfast because she did not like it as well as minimal lunch advised to eat to see the results. Today vital sign temperature 97.6 F oral heart rate ranging between 60-53 and respiratory rate 16-18 nonlabored no shortness of breath Blood pressure poorly controlled for the patient and ranging between loan examiner hour 122/56, subsequently during the day 142/50 Pulse ox 99%. No On the exam conscious alert oriented x 3 no nausea no vomiting she had the PICC line on the left arm. Head was normocephalic atraumatic pupil was equal reactive conjunctiva was pink sclera was nonicteric extraocular muscle movement intact. Neck was supple no JVD no thyromegaly no lymphadenopathy trachea midline Chest was clear to auscultation and percussion no wheezes no rhonchi's Heart was regular sinus rhythm with a controlled blood pressure no chest pains Abdomen soft and positive bowel sound and however no bowel movement so far today Extremities no edema positive pulses able to ambulate and will continue ambulati on. Neurologically stable and psychiatrically stable. Assessment: 1. Small bowel obstruction with gradual improvement and she had yesterday several bowel movement watery mushy 2. Patient seen by Dr. Torres yesterday and she allowed to have regular diet however today yet no bowel movement and no passing gases. 3. Her blood pressure currently controlled with the oral antihypertensive medication. 4. History of persistent hypertension 5. Coronary artery disease atherosclerotic heart disease 6. Bradycardia however she is on the beta-kellie. 7. Hyperglycemia with uncontrolled diabetes mellitus. Today no available laboratory yet Tomorrow will obtain BMP she had on 1128 CBC with the hemoglobin 11.8 and WBC 6 with a hematocrit 36.7. MCV 88.4 Plan: 1. With the patient clinically progressively improving 2. Will DC the IV and repeat lab in a.m. for BMP 3. Start the oral antihyperglycemic agent as her blood glucose is elevated not controlled. And we will see improvement by tomorrow. 4. Will be waiting for clearance from Dr. Melissa if patient will be able to be discharged home or continue to observe. 5. Start the hypoglycemic agent today. Objective - Vital Signs Vital signs: Vital Signs Temp 97.6 F 07/09/24 08:00 Pulse 53 L 07/09/24 11:25 Resp 16 07/09/24 11:25 BP 142/50 07/09/24 11:25 Pulse Ox 99 07/09/24 11:25 FiO2 Intake & Output 07/08/24 07/09/24 07/09/24 18:59 06:59 18:59 Intake Total 510 1080 776 Balance 510 1080 776 Weight 60 kg Intake: Oral 510 1080 776 Other: Voiding Method Toilet Toilet Toilet Diaper Diaper Diaper Incontinent Incontinent Incontinent # Voids 2 2 2 # Bowel Movements 1 - Labs CBC & Chem 7: 07/08/24 12:34 07/08/24 10:16 Labs: Abnormal Lab Results - Last 24 Hours (Table) 07/08/24 07/08/24 07/09/24 Range/Units 16:24 19:51 05:47 POC Glucose (mg/dL) 292 H 240 H 249 H (70-110) mg/dL 07/09/24 Range/Units 11:14 POC Glucose (mg/dL) 285 H (70-110) mg/dL
[2024-07-09] MEDS: ACETAMINOPHEN TAB 325 MG TAB PO PRN (13:10)
[2024-07-09] MEDS: PIOGLITAZONE 30 MG TAB PO SCH (13:10)
[2024-07-09] MEDS: carBAMazepine 300 MG CPMP.12HR PO STA (15:41)
[2024-07-09 16:08] LABS: Glucose,Whole Blood 209 mg/dL (70-110)
[2024-07-09] MEDS: glipiZIDE 10 MG TAB PO SCH (16:14)
[2024-07-09 20:30] LABS: Glucose,Whole Blood 156 mg/dL (70-110)
--- NOTE | 2024-07-09 21:04 | P.PN ---
Subjective Progress Note Date: 07/09/24 CHIEF COMPLAINT: Bowel obstruction HISTORY OF PRESENT ILLNESS: The patient is a 69-year-old female with frozen abdomen including bowel obstruction. She tolerated low fiber diet. She reports having bowel movements. Bowel movements large prior to admission and was daily. She denies any abdominal pain. No nausea and vomiting. Blood sugars trending down to under 200. ROS: No fevers or chills. No new chest pain. PHYSICAL EXAM: VITAL SIGNS: Reviewed CONSTITUTIONAL: Well developed and in no acute distress. EYES: Conjuctivae without sclera icterus. Extraocular movements grossly intact. HEAD, EARS, NOSE, THROAT: Moist buccal mucosa. Head is atraumatic, normocephalic. Hears conversational speech. No nasal drainage. RESPIRATORY: Non-labored respirations and equal bilateral excursions. CARDIOVASCULAR: Palpable 2+ radial pulses. ABDOMEN: Nontender, obese MUSCULOSKELETAL: No gross deformity of the lower extremities noted. No clubbing. No cyanosis. SKIN: Good skin turgor. Well perfused. NEUROLOGIC: Cranial nerves II through XII grossly intact. No focal or lateralizing signs. PSYCH: Appropriate affect. Alert and oriented to person, place and time. CLINICAL LABS: Reviewed. Blood sugar glucose under 200. ASSESSMENT: 1. Small bowel obstruction due to adhesions. 2. Obesity due to excess calories, BMI 34.1 3. Diabetes type 2 with hyperglycemia PLAN: 1. Patient has complaints regarding her diet and options. Will adjust diet to regular diet which she can have options for food. Patient does report having bowel movements after eating goodwin and drinking coffee. 2. Continue TPN in the interim. 3. Monitor rebound of abdominal pain. Objective - Vital Signs Vital signs: Vital Signs Temp 97.9 F 07/09/24 15:57 Pulse 68 07/09/24 15:57 Resp 16 07/09/24 15:57 BP 115/68 07/09/24 15:57 Pulse Ox 98 07/09/24 15:57 FiO2 Intake & Output 07/09/24 07/09/24 07/10/24 06:59 18:59 06:59 Intake Total 1080 894 Balance 8062 894 Weight 60 kg Intake: Oral 1080 894 Other: Voiding Method Toilet Toilet Diaper Diaper Incontinent Incontinent # Voids 2 1 - Labs CBC & Chem 7: 07/08/24 12:34 07/08/24 10:16 Labs: Abnormal Lab Results - Last 24 Hours (Table) 07/09/24 07/09/24 07/09/24 Range/Units 05:47 11:14 16:06 POC Glucose (mg/dL) 249 H 285 H 209 H (70-110) mg/dL 07/09/24 Range/Units 20:28 POC Glucose (mg/dL) 156 H (70-110) mg/dL
[2024-07-09] MEDS: carBAMazepine 300 MG CPMP.12HR PO SCH (21:09)
[2024-07-10 05:54] LABS: Glucose,Whole Blood 186 mg/dL (70-110)
[2024-07-10 08:13] LABS: African American GFR (CKD) >90 (>60 ml/min/1.73 sqM); Anion Gap 8 mmol/L; Blood Urea Nitrogen 12 mg/dL (7-17); Calcium 8.4 mg/dL (8.4-10.2); Carbon Dioxide 24 mmol/L (22-30); Chloride 106 mmol/L (98-107); Glucose 185 mg/dL (74-99); Non-African American GFR(CKD) >90 (>60 ml/min/1.73 sqM); Potassium 4.1 mmol/L (3.5-5.1); Sodium 138 mmol/L (137-145)
[2024-07-10 11:17] LABS: Glucose,Whole Blood 188 mg/dL (70-110)
--- NOTE | 2024-07-10 12:01 | P.PN ---
Subjective Progress Note Date: 07/10/24 Progress note Date of service 07/10/[address] Siegel. Patient seen and evaluated [id number] and plan of care discussed with the patient Patient today she stated that she did not have no BM no flatus or yesterday and she was seen yesterday by Dr. Torres and will continue monitoring the patient we do not have yet clearance to be discharged home We will be weaning for clearance from the surgeon's to discharge the patient when she is ready to be discharged. Vital sign temperature 97.7 F oral, heart rate 65 bpm. Her EKG noted today is negative normal sinus rhythm. Respiratory rate 16/min, blood pressure is controlled 143/69 with a mean 93 with the resuming all her home medication orally. She has no IV, but she still have the left arm PICC line and that will be discontinued prior to discharge only. Patient is ambulatory with the nursing staff for progression of the improvement. Laboratories today her sodium 138 potassium 4.1, chloride 106 carbon dioxide 24, BUN 12 creatinine 0.54, and her renal function estimated EGFR more than 90 Patient had her medication for antihyper glycemia and diabetes mellitus and significant improvement and currently her glucose venous 185 POC glucose also improved to 188 from 2-300. Calcium is 8.4., Magnesium ordered for today and to be covered if still low. All her medication from home has been resumed including carbamazepine 600 mg tablet twice a day for the history of seizure with the prolonged treatment. And no added medication at this time as medication reviewed today Physical exam: Patient is conscious alert oriented x 3 ambulatory. Head was normocephalic atraumatic pupil was equal reactive conjunctiva was pink sclera was nonicteric extraocular muscle movement is intact Neck was supple no JVD no thyromegaly no lymphadenopathy trachea midline. Chest is clear to auscultation percussion no wheezes no rales no cough Heart regular sinus rhythm with improvement on her blood pressure significantly. Abdomen soft positive bowel sound however she did not have no BM or flatus today or yesterday. Extremities no edema. Pulses. Neurologically stable no breakthrough seizures. Psychiatry stable mood and affect. Assessment and plan: 1. Small bowel obstruction has been improving gradually with no BM and no flatus today still monitoring 2. Hyperglycemia with diabetes mellitus type 2 has been significantly improving with the resuming her oral hypoglycemic agent and insulin to scale 3. Hypertension with persistent hypertension and hypertension urgency has been progressively improvement with the resuming oral medication 4. Resumed her seizure medication and there is no evidence of breakthrough seizure. Will continue the current treatment and will observe and monitor until surgical clearance for improvement and also clearance for discharge. Objective - Vital Signs Vital signs: Vital Signs Temp 97.7 F 07/10/24 08:00 Pulse 65 07/10/24 11:26 Resp 16 07/10/24 11:26 BP 143/69 07/10/24 11:26 Pulse Ox 96 07/10/24 11:26 FiO2 Intake & Output 07/09/24 07/10/24 07/10/24 18:59 06:59 18:59 Intake Total 894 240 Output Total 2 Balance 894 -2 240 Weight 86.8 kg Intake: Oral 894 240 Output: Stool 2 Other: Voiding Method Toilet Toilet Toilet Diaper Incontinent # Voids 1 1 1 - Labs CBC & Chem 7: 07/08/24 12:34 07/10/24 07:35 Labs: Abnormal Lab Results - Last 24 Hours (Table) 07/09/24 07/09/24 07/10/24 Range/Units 16:06 20:28 05:52 Glucose (74-99) mg/dL POC Glucose (mg/dL) 209 H 156 H 186 H (70-110) mg/dL 07/10/24 07/10/24 Range/Units 07:35 11:15 Glucose 185 H (74-99) mg/dL POC Glucose (mg/dL) 188 H (70-110) mg/dL
[2024-07-10] MEDS ORDERED: Magnesium Replacement Protocol 1 EACH MISC MISCELLANE PRN (13:22)
[2024-07-10] MEDS: MAGNESIUM SULFATE-D5W PMX 1 GM in DEXTROSE/WATER 1 100ML.BAG IVPB SCH ×2 (13:28→16:47)
--- NOTE | 2024-07-10 16:01 | P.PN ---
Subjective Progress Note Date: 07/10/24 CHIEF COMPLAINT: Bowel obstruction HISTORY OF PRESENT ILLNESS: The patient is a 69-year-old female with frozen abdomen including bowel obstruction. Patient ate salad yesterday and then had abdominal cramping. Today no cramping. She reports no passage of flatus yesterday or bowel movement today. She reports no abdominal pain at this time. ROS: No fevers or chills. No new chest pain. PHYSICAL EXAM: VITAL SIGNS: Reviewed CONSTITUTIONAL: Well developed and in no acute distress. EYES: Conjuctivae without sclera icterus. Extraocular movements grossly intact. HEAD, EARS, NOSE, THROAT: Moist buccal mucosa. Head is atraumatic, normocephalic. Hears conversational speech. No nasal drainage. RESPIRATORY: Non-labored respirations and equal bilateral excursions. CARDIOVASCULAR: Palpable 2+ radial pulses. ABDOMEN: Nontender, obese MUSCULOSKELETAL: No gross deformity of the lower extremities noted. No clubbing. No cyanosis. SKIN: Good skin turgor. Well perfused. NEUROLOGIC: Cranial nerves II through XII grossly intact. No focal or lateralizing signs. PSYCH: Appropriate affect. Alert and oriented to person, place and time. CLINICAL LABS: Reviewed. Blood sugar glucose down from over 200s to 180s. Magnesium low 1.5. ASSESSMENT: 1. Small bowel obstruction due to adhesions. 2. Obesity due to excess calories, BMI 34.1 3. Diabetes type 2 with hyperglycemia 4. Hypomagnesia. PLAN: 1. Extended conversation reviewed the patient to avoid all fibrous foods. Adjustment of her low fiber diet to no veggies, no salads, consistent carb corrected. 2. Correct magnesium with 4 g IV supplement initiated. Objective - Vital Signs Vital signs: Vital Signs Temp 97.9 F 07/10/24 15:09 Pulse 62 07/10/24 15:09 Resp 16 07/10/24 15:09 BP 145/71 07/10/24 15:09 Pulse Ox 97 07/10/24 15:09 FiO2 Intake & Output 07/09/24 07/10/24 07/10/24 18:59 06:59 18:59 Intake Total 894 1020 Output Total 2 Balance 894 -2 1020 Weight 86.8 kg Intake: Oral 894 1020 Output: Stool 2 Other: Voiding Method Toilet Toilet Toilet Diaper Incontinent # Voids 1 1 3 - Labs CBC & Chem 7: 07/08/24 12:34 07/10/24 07:35 Labs: Abnormal Lab Results - Last 24 Hours (Table) 07/09/24 07/09/24 07/10/24 Range/Units 16:06 20:28 05:52 Glucose (74-99) mg/dL POC Glucose (mg/dL) 209 H 156 H 186 H (70-110) mg/dL Magnesium (1.6-2.3) mg/dL 07/10/24 07/10/24 07/10/24 Range/Units 07:35 07:35 11:15 Glucose 185 H (74-99) mg/dL POC Glucose (mg/dL) 188 H (70-110) mg/dL Magnesium 1.5 L (1.6-2.3) mg/dL
[2024-07-10 16:10] LABS: Glucose,Whole Blood 247 mg/dL (70-110)
[2024-07-10] MEDS: SIMETHICONE 80 MG CHEWABLE PO SCH (16:44)
[2024-07-10 20:24] LABS: Glucose,Whole Blood 216 mg/dL (70-110)
[2024-07-11 06:12] LABS: Glucose,Whole Blood 160 mg/dL (70-110)
--- NOTE | 2024-07-11 06:58 | XR ---
2 view abdomen HISTORY: Follow-up bowel obstruction. COMPARISON: 07/05/2024 TECHNIQUE: 4 supine views of the abdomen were obtained FINDINGS: There is no dilatation of the small bowel loops. There is air and mild stool scattered throughout the colon with no significant stool within the rectum. There is no suspicious abdominal or pelvic calcification. There are clips in the right upper quadrant indicating cholecystectomy. The lung bases are clear. There is mild to moderate osteoarthritic changes in the hips The osseous structures are grossly intact. IMPRESSION: 1. Nonspecific bowel gas pattern without evidence of bowel obstruction. 2. Mild air and stool within the colon from the cecum to the rectum. [facility], , 07/11/2024 6:56 AM
[2024-07-11 11:01] LABS: Glucose,Whole Blood 150 mg/dL (70-110)
--- NOTE | 2024-07-11 15:13 | P.PN ---
Subjective Progress Note Date: 07/11/24 Progress note Date of service 07/11/[address] Siegel. Patient seen today and evaluated [id number] and she had x-ray of the abdomen ordered by Dr. Torres. Patient stated that she had minimal passing gas but no BM. Vital sign: Temperature 97.9 F oral, heart rate ranging between 63 to 53 bpm, respiratory rate 16 normal nonlabored. Blood pressure: 120/71 at 4 AM, 132/71 at 8 AM, 148/73 at 11:30 AM with the blood pressure fairly well-controlled. Pulse ox has been variable 96, and 98% on room air. The x-ray of the abdomen: Indicating nonspecific bowel gas pattern without evidence of bowel obstruction. Mild air and stool within colon from the rectum to the cecum. The x-ray was ordered by Dr. Torres she will be seeing her today for more advice and future clearance.. 9 Dr. Torres did see the patient yesterday with extended discussion and she advised her to avoid all fibrous food with a low fiber diet and no veggies no salad and consistent carb. At that time also her magnesium was low 1.5 and patient received 4 mg IV piggyback magnesium and today was corrected magnesium is above 2. Renal function stable and her potassium is 4.1 on 07/10/2024, calcium 8.4, POC blood sugar and in the morning was 160 which is fairly well controlled with the current regimen. On the exam: Patient conscious alert oriented x 3 able to discuss anguish 8 and she is afraid of going home with no bowel movement, she had underlying gastroparesis from the diabetes and we will start her on Reglan 5 mg AC meal to help the bowel movement and advised her to do more walking. We also will wait for Dr. Torres the surgeon in regarding of her small bowel obstruction and the bowel movement and the presence of the x-ray with the stool from the cecum to the colon and if anything else needs to be done. And also clearance at the time of probability of discharge. On the exam: Vital signs stable HEENT no changes head was normocephalic atraumatic pupil was equal reactive oropharynx negative able to eat and swallow no neurological finding Neck was supple no JVD no thyromegaly no lymph adenopathy trachea midline And the chest is clear to auscultation percussion No wheezes no rhonchi's Heart was regular sinus rhythm and the hypertension is controlled with a history of persistent hypertension and hypertensive urgency currently resolved Abdomen is protuberant and positive bowel sound and no tenderness but she did not have today a bowel movement Extremities no edema positive pulses and ambulatory. Neurologically no evidence of seizure disorder or breakthrough seizures Psychiatry stable. Assessment: And plan 1. In regard of medical consideration her diabetes mellitus has been fairly controlled with the current medication 2. In regard of hypertension with hypertension urgency and hypertensive heart disease currently controlled fairly 3. In regard of seizure disorder no breakthrough seizures and she is resuming her medication. 4. Hyperlipidemia and coronary artery disease has been stable with no angina no chest pain. 5. Patient ambulatory and she had PICC line which will be removed at the time of clearance of surgery and time of discharge. 6. Waiting for the surgical decision in regard of the small bowel obstruction and if any other further treatment and clearance for discharge if surgical cleared. Will wait for Dr. Torres opinion and decision as mainly the patient admitted because of the small bowel obstruction. And if any fourth or added medicine needed in regard with the x-ray report today Objective - Vital Signs Vital signs: Vital Signs Temp 97.9 F 07/11/24 08:00 Pulse 53 L 07/11/24 11:38 Resp 16 07/11/24 11:38 BP 148/73 07/11/24 11:38 Pulse Ox 98 07/11/24 11:38 FiO2 Intake & Output 07/10/24 07/11/24 07/11/24 18:59 06:59 18:59 Intake Total 1560 540 598 Balance 1560 540 598 Weight 89.5 kg Intake: Oral 1560 540 598 Other: Voiding Method Toilet Toilet Toilet # Voids 2 1 1 - Labs CBC & Chem 7: 07/08/24 12:34 07/10/24 07:35 Labs: Abnormal Lab Results - Last 24 Hours (Table) 07/10/24 07/10/24 07/11/24 Range/Units 16:08 20:22 06:10 POC Glucose (mg/dL) 247 H 216 H 160 H (70-110) mg/dL 07/11/24 Range/Units 11:00 POC Glucose (mg/dL) 150 H (70-110) mg/dL
[2024-07-11 16:19] LABS: Glucose,Whole Blood 221 mg/dL (70-110)
[2024-07-11] MEDS: METOCLOPRAMIDE 5 MG TAB PO SCH (16:25)
--- NOTE | 2024-07-11 16:42 | P.PN ---
Subjective Progress Note Date: 07/11/24 CHIEF COMPLAINT: Bowel obstruction HISTORY OF PRESENT ILLNESS: The patient is a 69-year-old female with frozen abdomen including bowel obstruction. She is tolerating a low fiber diet. She reports decreased abdominal pain without cramps. She denies any bowel movements. She denies increase gas bloat. She reports eating meat loaf. She also ate oatmeal. ROS: No fevers or chills. No new chest pain. PHYSICAL EXAM: VITAL SIGNS: Reviewed CONSTITUTIONAL: Well developed and in no acute distress. EYES: Conjuctivae without sclera icterus. Extraocular movements grossly intact. HEAD, EARS, NOSE, THROAT: Moist buccal mucosa. Head is atraumatic, normocephalic. Hears conversational speech. No nasal drainage. RESPIRATORY: Non-labored respirations and equal bilateral excursions. CARDIOVASCULAR: Palpable 2+ radial pulses. ABDOMEN: Nontender, obese MUSCULOSKELETAL: No gross deformity of the lower extremities noted. No clubbing. No cyanosis. SKIN: Good skin turgor. Well perfused. NEUROLOGIC: Cranial nerves II through XII grossly intact. No focal or lateralizing signs. PSYCH: Appropriate affect. Alert and oriented to person, place and time. CLINICAL LABS: Reviewed. Magnesium 2.0. Blood sugars 220s. STUDIES: Abdominal x-ray dependently reviewed demonstrate diffuse bowel gas pattern without bowel obstruction. Stool noted within the ascending transverse colon. This is my independent interpretation. REPORT: Etiology report reviewed. ASSESSMENT: 1. Small bowel obstruction due to adhesions. 2. Obesity due to excess calories, BMI 34.1 3. Diabetes type 2 with hyperglycemia 4. Hypomagnesia. PLAN: 1. Continue low fiber diet. 2. Will start lactulose 20 g twice daily for bowel movements. Objective - Vital Signs Vital signs: Vital Signs Temp 97.7 F 07/11/24 16:00 Pulse 63 07/11/24 16:00 Resp 18 07/11/24 16:00 BP 158/69 07/11/24 16:00 Pulse Ox 100 07/11/24 16:00 FiO2 Intake & Output 07/10/24 07/11/24 07/11/24 18:59 06:59 18:59 Intake Total 1560 540 598 Balance 1560 540 598 Weight 89.5 kg Intake: Oral 1560 540 598 Other: Voiding Method Toilet Toilet Toilet # Voids 2 1 1 - Labs CBC & Chem 7: 07/08/24 12:34 07/10/24 07:35 Labs: Abnormal Lab Results - Last 24 Hours (Table) 07/10/24 07/11/24 07/11/24 Range/Units 20:22 06:10 11:00 POC Glucose (mg/dL) 216 H 160 H 150 H (70-110) mg/dL 07/11/24 Range/Units 16:18 POC Glucose (mg/dL) 221 H (70-110) mg/dL
[2024-07-11] MEDS: LACTULOSE 20 GM/30 ML CUP PO SCH (17:09)
[2024-07-11 20:22] LABS: Glucose,Whole Blood 251 mg/dL (70-110)
[2024-07-11 22:40] VITALS: RESP 17
[2024-07-12 06:35] LABS: Glucose,Whole Blood 156 mg/dL (70-110)
[2024-07-12 10:31] VITALS: BMI 36.1
--- NOTE | 2024-07-12 10:53 | P.PN ---
Subjective Progress Note Date: 07/12/24 SURGICAL PROGRESS NOTE CHIEF COMPLAINT: Partial small bowel obstruction HISTORY OF PRESENT ILLNESS: Patient is sitting up in bed comfortably. She is tolerating diet. She is having bowel movements. Her pain has improved. She has been up and ambulating. She is afebrile. PHYSICAL EXAM: VITAL SIGNS: Reviewed. GENERAL: Well-developed in no acute distress. ABDOMEN: Soft. Nondistended. Nontender NEUROLOGIC: Alert and oriented. Cranial nerves II through XII grossly intact. ASSESSMENT: 1. Partial small bowel obstruction resolved with conservative management PLAN: -Patient can be discharge from surgical standpoint -Continue low fiber diet Physician Environmental Air Specialist note has been reviewed by physician. Signing provider agrees with the documented findings, assessment, and plan of care. I have personally seen and examined the patient, reviewed the UX DESIGN LEAD /PAs history, exam and MDM and agree with the assessment and plan as written. Based on total visit time, I have performed more than 50% of the visit. As above: Patient doing well today. Tolerating diet. Good bowel function last night. December discharge. Objective - Vital Signs Vital signs: Vital Signs Temp 97.9 F 07/12/24 08:00 Pulse 66 07/12/24 08:00 Resp 17 07/12/24 08:00 BP 157/73 07/12/24 08:00 Pulse Ox 100 07/12/24 08:00 FiO2 Intake & Output 07/11/24 07/12/24 07/12/24 18:59 06:59 18:59 Intake Total 956 20 370 Balance 956 20 370 Weight 89.5 kg 89.5 kg Intake: IV 20 10 Invasive Line 3 20 10 Oral 956 360 Other: Voiding Method Toilet Toilet Toilet # Voids 2 1 0 # Bowel Movements 0 - Labs CBC & Chem 7: 07/08/24 12:34 07/10/24 07:35 Labs: Abnormal Lab Results - Last 24 Hours (Table) 07/11/24 07/11/24 07/11/24 Range/Units 11:00 16:18 20:21 POC Glucose (mg/dL) 150 H 221 H 251 H (70-110) mg/dL 07/12/24 Range/Units 06:34 POC Glucose (mg/dL) 156 H (70-110) mg/dL
[2024-07-12 11:51] LABS: Glucose,Whole Blood 194 mg/dL (70-110)
--- NOTE | 2024-07-12 14:22 | P.DS ---
Providers Date of admission: 07/02/24 00:57 Expected date of discharge: 07/12/24 Attending physician: Flynn Siegel Consults: 07/02/24 00:57 Consult Physician Routine Consulting Provider: Otilio Levi Consult Reason/Comments: partial small bowel obstruction Do you want consulting provider notified?: Already Contacted Primary care physician: Flynn Siegel Dictation of discharge summary Date of service 07/12/[address] Siegel. Final diagnosis Acute partial small bowel obstruction resolved symptomatically 2. Hypertension urgency, with uncontrolled hypertension with a history of persistent hypertension 3. Hypertensive cardiovascular disease 4. Coronary artery disease atherosclerotic heart disease 5. Diabetes mellitus type 2 with hyperglycemia 6. Electrolyte imbalance with hypomagnesemia 7. History of seizure disorder with no breakthrough seizure 8. Depression and anxiety 9. Hyperlipidemia. Consultation Otilio Brooke Cardiology consult. Patient ER presentation: No BM no flatus with nausea and vomiting and abdominal distention with severe pain in the abdomen. Hospital course patient admitted to fourth floor surgical however her blood pressure was accelerated and urgency and no controlled by IV medication as patient was n.p.o. and required beta-blockers subsequently patient transferred to the third floor where she can receive IV beta-blockers meanwhile consultation with the cardiology because of the persistent hypertension uncontrolled as well with hypertensive urgency. Patient seen by the surgical team Dr. Hart and subsequently Dr. Torres and the treated because of the abdominal adhesion symptomatically with no surgical interference. As patient had after prolonged her hospital admission she able to have a bowel movement and cleared by surgeon Dr. Hart to discharge today Her medication once she is able to have liquid diet and advance with the start of the flatus and bowel movement and resumed her medication. And currently she is taking all her medication and further adjustment to be done as outpatient. Patient stable general condition to be discharged home today with the her old home medication. On the exam on discharge patient is conscious alert oriented x 3 no respiratory distress no abdominal pain Head and neck stable and head was normocephalic atraumatic pupil was equal reactive conjunctiva was pink sclera was nonicteric extraocular muscle movement was intact. Neck was supple no JVD no thyromegaly no lymphadenopathy. Chest clear to auscultation percussion and no wheezes no rhonchi's Heart was regular sinus rhythm and blood pressure is fairly well-controlled Vital sign temperature 98F oral, pulse 62 bpm regular sinus, respiratory rate 17/min nonlabored, blood pressure 119/63 with a mean blood pressure 81, pulse ox 98. Abdomen soft positive bowel sound slightly protuberant and she had a bowel movement today and yesterday. Extremities no edema and positive pulses. Neuro Neuro no seizure disorder and no breakthrough seizure. Psychiatry stable with the normal mood and affect. Patient stable for discharge home today and to be followed by Dr. Hart as well as PCP Dr. Siegel Patient has been instructed about her diet by Dr. Torres. And continue her current medication which is reconciled. Patient Condition at Discharge: Stable Plan - Discharge Summary Discharge Rx Participant: Yes New Discharge Prescriptions: Continue levETIRAcetam [Keppra] 1,000 mg PO BID Metoprolol Tartrate [Lopressor] 50 mg PO TID Enalapril [Vasotec] 20 mg PO BID amLODIPine [Norvasc] 10 mg PO HS glipiZIDE [Glucotrol] 10 mg PO QAM Insulin Regular, Human [NovoLIN R] See Protocol SQ AC-TID MDD 40 units hydroCHLOROthiazide [Hydrodiuril] 25 mg PO DAILY hydrALAZINE HCL [Apresoline] 100 mg PO BID Ezetimibe [Zetia] 10 mg PO HS carBAMazepine [carBAMazepine ER] 600 mg PO BID PARoxetine [Paxil] 10 mg PO DAILY cloNIDine HCL [Catapres] 0.2 mg PO BID Pioglitazone [Actos] 30 mg PO DAILY Docusate [Colace] 100 mg PO TID PRN PRN Reason: Constipation Aspirin EC [Ecotrin Low Dose] 81 mg PO HS Atorvastatin [Lipitor] 40 mg PO HS Discharge Medication List levETIRAcetam [Keppra] 1,000 mg PO BID 12/16/13 [History] Enalapril [Vasotec] 20 mg PO BID 06/07/21 [History] Metoprolol Tartrate [Lopressor] 50 mg PO TID 06/07/21 [History] amLODIPine [Norvasc] 10 mg PO HS 06/07/21 [History] carBAMazepine [carBAMazepine ER] 600 mg PO BID 11/13/21 [History] PARoxetine [Paxil] 10 mg PO DAILY 01/18/22 [History] Insulin Regular, Human [NovoLIN R] See Protocol SQ AC-TID MDD 40 units 06/10/23 [History] Pioglitazone [Actos] 30 mg PO DAILY 06/10/23 [History] cloNIDine HCL [Catapres] 0.2 mg PO BID 06/10/23 [History] glipiZIDE [Glucotrol] 10 mg PO QAM 06/10/23 [History] Docusate [Colace] 100 mg PO TID PRN 08/26/23 [History] Aspirin EC [Ecotrin Low Dose] 81 mg PO HS 01/27/24 [History] hydrALAZINE HCL [Apresoline] 100 mg PO BID 01/27/24 [History] hydroCHLOROthiazide [Hydrodiuril] 25 mg PO DAILY 01/27/24 [History] Atorvastatin [Lipitor] 40 mg PO HS 07/02/24 [History] Ezetimibe [Zetia] 10 mg PO HS 07/02/24 [History] Follow up Appointment(s)/Referral(s): Flynn Siegel MD [Primary Care Provider] - 3 Days Otilio Levi MD [Medical Doctor] - 1 Week Activity/Diet/Wound Care/Special Instructions: Diet avoid all the fibrous food, low fiber diet, no vit G, no salads,. Carb corrected. Activity as tolerated Discharge Disposition: HOME SELF-CARE
[2024-07-12 15:08] VITALS: BP 168/80; PULSE 68; TEMP 98.5
== END 2024-07-12 15:20 | disposition home or self-care (01) | DRG 389 ==
LOC: EC 21:50 → 4SSUR 07-02 00:57 → 3SCARD 07-05 14:18
PROVIDERS: ADMIT Internal Medicine; ATTEND Internal Medicine
PROC: 0D9670Z Drainage of Stomach with Drainage Device, Via Natural or Artificial Opening (ICD-10-PCS; principal; 2024-07-02)
PROC: 02HV33Z Insertion of Infusion Device into Superior Vena Cava, Percutaneous Approach (ICD-10-PCS; 2024-07-05)
PROC: 4A02X4A Measurement of Cardiac Electrical Activity, Guidance, External Approach (ICD-10-PCS; 2024-07-05)
DX: K56.51 Intestinal adhesions [bands], with partial obstruction (principal); E87.1 Hypo-osmolality and hyponatremia; I16.0 Hypertensive urgency; D50.9 Iron deficiency anemia, unspecified; E11.65 Type 2 diabetes mellitus with hyperglycemia; E66.09 Other obesity due to excess calories; E78.5 Hyperlipidemia, unspecified; E83.42 Hypomagnesemia; F32.A Depression, unspecified; F41.9 Anxiety disorder, unspecified; G40.909 Epilepsy, unspecified, not intractable, without status epilepticus; I11.9 Hypertensive heart disease without heart failure; I25.10 Atherosclerotic heart disease of native coronary artery without angina pectoris; R74.8 Abnormal levels of other serum enzymes; Z96.652 Presence of left artificial knee joint; Z68.34 Body mass index [BMI] 34.0-34.9, adult; Z79.4 Long term (current) use of insulin; Z79.84 Long term (current) use of oral hypoglycemic drugs; Z79.899 Other long term (current) drug therapy; Z85.038 Personal history of other malignant neoplasm of large intestine; Z90.49 Acquired absence of other specified parts of digestive tract; Z85.42 Personal history of malignant neoplasm of other parts of uterus; Z85.43 Personal history of malignant neoplasm of ovary; Z86.73 Personal history of transient ischemic attack (TIA), and cerebral infarction without residual deficits; Z87.828 Personal history of other (healed) physical injury and trauma; Z90.710 Acquired absence of both cervix and uterus
CPT/HCPCS: 36415; 36573; 71045; 74019; 74177; 80048; 80053; 80074; 80076; 81003; 82150; 82330; 83540; 83550; 83605; 83690; 83735; 83880; 84075; 84100; 84145; 84478; 85025; 85610; 96361; 96374; 96375; 96376; 99285

== ENCOUNTER → 2024-07-21 | Outpatient (CLI) | payer MEDICARE, BC ==
--- NOTE | 2024-07-21 08:19 | XR ---
EXAMINATION TYPE: XR abdomen complete w decub DATE OF EXAM: 07/21/2024 COMPARISON: 07/11/2024 CLINICAL INDICATION: Female, 69 years old with history of K59.00 CONSTIPATION, UNSPECIFIED; TECHNIQUE: Supine, upright, and left side down lateral decubitus views of the abdomen are obtained. FINDINGS: Moderate to large amount stool. Surgical anchors noted projected pelvis. Multilevel degeneration quiroz ges of the spine. Degeneration changes of the hips left greater than right with joint space narrowing and osteophyte formation. There is no evidence for pneumoperitoneum. The bowel gas pattern is unremarkable as there is air throughout nondilated small and large bowel. No sizeable air fluid levels. No mass effects are seen. No unusual calcifications. IMPRESSION: Moderate to large amount stool throughout the colon. [facility], , 07/21/2024 8:16 AM
[2024-07-21 10:38] LABS: Basophils # (A) 0.04 X 10*3/uL (0.00-0.10); Basophils % (A) 0.6 %; Eosinophils # (A) 0.14 X 10*3/uL (0.04-0.35); Eosinophils % (A) 2.2 %; HCT 43.1 % (37.2-46.3); HGB 13.6 g/dL (12.0-15.0); MCH 28.3 pg (27.0-32.0); MCHC 31.6 g/dL (32.0-37.0); MCV 89.6 FL (80.0-97.0); Mean Platelet Volume 9.5 FL (9.5-12.2); Monocytes # (A) 0.34 X 10*3/uL (0.20-1.00); Monocytes % (A) 5.4 %; NRBC Per 100 WBC 0 X 10*3/uL (0.00-0.01); Neutrophils # (A) 3.19 X 10*3/uL (1.80-7.70); Neutrophils % (A) 50.3 %; Platelet Count 327 X 10*3/uL (140-440); RBC 4.81 X 10*6/uL (4.10-5.20); RDW 13.7 % (11.5-14.5); WBC 6.34 X 10*3/uL (4.50-10.00)
[2024-07-21 13:47] LABS: Amylase 42 U/L (23-121); Lipase 23 U/L (14-63)
[2024-07-21 14:09] LABS: ALT 15 U/L (8-44); AST 15 U/L (13-35); Albumin 4.3 g/dL (3.8-4.9); Albumin/Globulin Ratio 1.65 Ratio (1.60-3.17); Alkaline Phosphatase 186 U/L (41-126); Blood Urea Nitrogen 12.6 mg/dL (9.0-27.0); Calcium 9.5 mg/dL (8.7-10.3); Carbon Dioxide 21.1 mmol/L (21.6-31.8); Chloride 100 mmol/L (96-109); Globulin 2.6 g/dL (1.6-3.3); Glucose 246 mg/dL (70-110); Potassium 4.4 mmol/L (3.5-5.5); Sodium 139 mmol/L (135-145); Total Bilirubin 0.2 mg/dL (0.3-1.2); Total Protein 6.9 g/dL (6.2-8.2)
== END | disposition home or self-care (01) ==
LOC: LABWHC1 06:52
PROVIDERS: ATTEND Internal Medicine
DX: K59.00 Constipation, unspecified (principal)
CPT/HCPCS: 36415; 74021; 80053; 82150; 83036; 83690; 84443; 85025

== ENCOUNTER → 2024-10-25 | Outpatient (CLI) | payer MEDICARE, BC ==
--- NOTE | 2024-10-25 09:15 | XR ---
EXAMINATION TYPE: XR chest 2V DATE OF EXAM: 10/25/2024 9:09 AM COMPARISON: Chest radiographs from 07/03/2024 CLINICAL INDICATION: Female, 69 years old with history of J06.9 ACUTE UPPER RESPIRATORY INFECTION, UN SPECIFIED; [facility] TECHNIQUE: XR chest 2V Frontal and lateral views of the chest. FINDINGS: Lungs/Pleura: There is no evidence of pleural effusion, focal consolidation, or pneumothorax. Pulmonary vascularity: Unremarkable. Heart/mediastinum: Cardiomediastinal silhouette is unremarkable. Musculoskeletal: No acute osseous pathology. Right axillary surgical clips. IMPRESSION: No acute cardiopulmonary disease/process. [facility], , 10/25/2024 9:13 AM
[2024-10-25 09:44] LABS: Basophils % (A) 0 %; Eosinophils # (A) 0.1 k/uL (0-0.7); Eosinophils % (A) 2 %; HCT 41.4 % (34.0-46.0); Lymphocytes # (A) 0.6 k/uL (1.0-4.8); Lymphocytes % (A) 15 %; MCHC 31.4 g/dL (31.0-37.0); MCV 89.3 fL (80.0-100.0); Mean Platelet Volume 7.4; Monocytes # (A) 0.3 k/uL (0-1.0); Monocytes % (A) 7 %; Neutrophils # (A) 3.2 k/uL (1.3-7.7); Neutrophils % (A) 75 %; Platelet Count 264 k/uL (150-450); RBC 4.64 m/uL (3.80-5.40); RDW 14.7 % (11.5-15.5); WBC 4.3 k/uL (3.8-10.6)
[2024-10-25 10:19] LABS: Influenza A Detected (Not Detectd); Influenza B Not Detected (Not Detectd); RSV Not Detected (Not Detectd)
== END | disposition home or self-care (01) ==
LOC: RADXRMAIN 08:45
PROVIDERS: ATTEND Internal Medicine
DX: Z11.2 Encounter for screening for other bacterial diseases (principal); J06.9 Acute upper respiratory infection, unspecified; R05.9 Cough, unspecified; Z11.52 Encounter for screening for COVID-19
CPT/HCPCS: 71046; 85025; 87636

== ENCOUNTER → 2025-01-14 | Outpatient (CLI) | payer MEDICARE, BC | END | disposition home or self-care (01) | LOC: LABWHC1 15:15 | PROVIDERS: ATTEND Internal Medicine | DX: J06.9 Acute upper respiratory infection, unspecified (principal); I10 Essential (primary) hypertension; E11.9 Type 2 diabetes mellitus without complications | CPT/HCPCS: 36415; 83036 ==

== ENCOUNTER → 2025-02-21 | Outpatient (CLI) | payer MEDICARE, BC ==
--- NOTE | 2025-02-21 11:19 | XR ---
EXAMINATION TYPE: XR Hip LT and AP Pelvis DATE OF EXAM: 02/21/2025 10:50 AM COMPARISON: None. CLINICAL INDICATION: Female, 70 years old with history of M25.551 W18.30XA; PHH, pain TECHNIQUE: XR Hip LT and AP Pelvis; hip was examined in the frontal and lateral projections and a AP pelvis. FINDINGS: No evidence for acute process, joint dislocation or significant soft tissue swelling. Osteo phyte formation of the superior acetabulum of the hips. Cam deformity of femoral heads. There is mode rate joint space narrowing. IMPRESSION: 1. No evidence for acute process. 2. Moderate bilateral hip osteoarthrosis. 3. 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 [facility], , 02/21/2025 11:16 AM
== END | disposition home or self-care (01) ==
LOC: LABWHC1 10:34
PROVIDERS: ATTEND Internal Medicine
DX: M16.0 Bilateral primary osteoarthritis of hip (principal); W18.30XA Fall on same level, unspecified, initial encounter
CPT/HCPCS: 73502

== ENCOUNTER → 2025-03-02 | Outpatient (CLI) | payer MEDICARE, BC ==
[2025-03-02 16:05] LABS: Anion Gap 15.70 mmol/L (4.00-12.00); BUN/Creat Ratio 15.44 Ratio (12.00-20.00); Blood Urea Nitrogen 13.9 mg/dL (9.0-27.0); Calcium 9.3 mg/dL (8.7-10.3); Carbon Dioxide 22.3 mmol/L (21.6-31.8); Chloride 106 mmol/L (96-109); Glucose 165 mg/dL (70-110); Potassium 3.8 mmol/L (3.5-5.5); Sodium 144 mmol/L (135-145)
== END | disposition home or self-care (01) ==
LOC: LABWHC1 12:35
PROVIDERS: ATTEND Internal Medicine
DX: M16.12 Unilateral primary osteoarthritis, left hip (principal); E11.9 Type 2 diabetes mellitus without complications; I10 Essential (primary) hypertension; E87.8 Other disorders of electrolyte and fluid balance, not elsewhere classified
CPT/HCPCS: 36415; 80048; 83036